=== PATIENT | female | born 1980 | race Hispanic/Latino ===

== ENCOUNTER 2019-10-26 20:22 | Emergency (ER) | payer SELFPAY ==
[2019-10-26 20:55] LABS: Urine Blood NEGATIVE (NEG); Urine Glucose 2+ (NEG); Urine Protein NEGATIVE (NEG); Urine pH 5.5 (5.0-7.0)
[2019-10-26] MEDS ORDERED: ONDANSETRON 4 MG/2 ML VIAL ONE (21:13)
[2019-10-26] MEDS ORDERED: MORPHINE 4 MG/ML SYR ONE (21:13)
[2019-10-26 21:28] LABS: Absolute Lymphocytes (CBC) 2.2 K/uL (0.7-4.9); Basophils % 0.5 % (0-1.3); Lymphocytes % 33.6 % (15.3-44.8); MPV 11.7 fL (7.6-11.3); RBC Red Blood Cell Count 3.97 M/uL (3.86-4.86)
[2019-10-26 21:50] LABS: Urine Bacteria <20 /HPF (<20); Urine Culture Reflex Order NOT NEEDED; Urine RBC <5 /HPF (NONE SEEN)
[2019-10-26 21:53] LABS: ALT/SGPT 18 U/L (12-78); AST/SGOT 13 U/L (15-37); Alkaline Phosphatase 109 U/L (45-117); BUN Blood Urea Nitrogen 10 mg/dL (7-18); Bicarbonate 26 mmol/L (21-32); Bilirubin Direct < 0.1 mg/dL (0-0.2); Bilirubin Total 0.2 mg/dL (0.2-1.0); Lipase 141 U/L (73-393); Potassium 4.2 mmol/L (3.5-5.1); Protein, Total 6.7 g/dL (6.4-8.2); Sodium Level 133 mmol/L (136-145)
[2019-10-26 21:55] LABS: Glucose Level 435 mg/dL (74-106)
[2019-10-26] MEDS ORDERED: NA CHLORIDE 0.9% 1,000 ML ONE (22:07)
--- NOTE | 2019-10-26 23:12 | ER ---
Nurse's Notes [facility] Name: Tati Flaherty Age: 38 yrs Sex: Female : 1980 Arrival Date: 10/26/2019 Time: 20:25 Bed 24 Private MD: Diagnosis: Hyperglycemia, unspecified;Abdominal and pelvic pain Presentation: 10/26 20:27 Presenting complaint: Patient states: Lower abdominal pain that radiates to the back ca1 and leg x 3 days now. Reports feeling bloated at the stomach. Pt reports nausea, dysuria, urinary urgency and frequency. Denies fever and diarrhea. Transition of care: patient was not received from another setting of care. Onset of symptoms was October 26, 2019. Risk Assessment: Do you want to hurt yourself or someone else? Patient reports no desire to harm self or others. Initial Sepsis Screen: Does the patient meet any 2 criteria? No. Patient's initial sepsis screen is negative. Does the patient have a suspected source of infection? No. Patient's initial sepsis screen is negative. Care prior to arrival: None. 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 - Social history:: Smoking status: Patient/guardian denies using tobacco. - Ebola Screening: : Patient negative for fever greater than or equal to 101.5 degrees Fahrenheit, and additional compatible Ebola Virus Disease symptoms Patient denies exposure to infectious person Patient denies travel to an Ebola-affected area in the 21 days before illness onset No symptoms or risks identified at this time. Screenin:51 Abuse screen: Denies threats or abuse. Nutritional screening: No deficits noted. ad1 Tuberculosis screening: No symptoms or risk factors identified. Fall Risk None identified. Assessment: 20:59 General: Appears comfortable, Behavior is calm, cooperative. Pain: Complains of pain in ad1 lower abdomen and lower back. Pain currently is 6 out of 10 on a pain scale. Neuro: No deficits noted. Level of Consciousness is awake, alert, obeys commands. Cardiovascular: No deficits noted. Respiratory: No deficits noted. GI: Abdomen is tender to palpation in lower abdomen bilaterally. : Reports burning with urination, pain. EENT: No signs and/or symptoms were reported regarding the EENT system. Derm: No deficits noted. Derm: No signs and/or symptoms reported regarding the dermatologic system. 21:06 GI: Bowel sounds present X 4 quads. ad1 21:27 Reassessment: Patient laying in stretcher, eyes closed, even respirations. no apparent ad1 distress noted. Daughter updated, waiting lab results then CT. 22:43 Reassessment: Patient and/or family updated on plan of care and expected duration. Pain ad1 level reassessed. Patient is alert, oriented x 3, equal unlabored respirations, skin warm/dry/pink. Patient states feeling better. Vital Signs: 20:30 BP 121 / 74; Pulse 85; Resp 17 S; Temp 97.1(TE); Pulse Ox 97% on R/A; Weight 58.97 kg ca1 (R); Height 5 ft. 0 in. (152.40 cm) (R); Pain 6/10; 21:29 BP 146 / 83; Pulse 73; Resp 16; Pulse Ox 100% ; ad1 22:43 BP 151 / 87; Pulse 70; Resp 18; Pulse Ox 100% ; ad1 20:30 Body Mass Index 25.39 (58.97 kg, 152.40 cm) ca1 ED Course: 20:25 Patient arrived in ED. cl3 20:29 Triage completed. ca1 20:30 Arm band placed on right wrist. ca1 20:37 Eulogio Davalos PA is PHCP. jr8 20:37 Carlos Montenegro MD is Attending Physician. jr8 21:09 No provider procedures requiring assistance completed. Inserted saline lock: 22 gauge ca1 in right antecubital area, using aseptic technique. Blood collected. 21:10 Initial lab(s) drawn, by me, sent to lab. ca1 21:36 Radiology exam delayed due to lab results not completed at this time. (BUN/Creatinine). nj 22:11 CT Abd/Pelvis - IV Contrast Only In Process Unspecified. EDMS 23:52 Patient has correct armband on for positive identification. ad1 23:52 IV discontinued, intact, bleeding controlled. ad1 Administered Medications: 21:17 Drug: morphine 4 mg {Note: RASS 0.} Route: IVP; Site: right antecubital; ad1 21:17 Drug: Zofran 4 mg Route: IVP; Site: right antecubital; ad1 22:12 Drug: NS 0.9% 1000 ml Route: IV; Rate: 1000 ml; Site: right antecubital; ad1 Outcome: 23:12 Discharge ordered by . roberta 23:50 Discharged to home with family. ad1 23:50 Condition: stable 23:50 Discharge instructions given to patient, Instructed on discharge instructions, follow up and referral plans. Demonstrated understanding of instructions, follow-up care, medications, Prescriptions given X 3. 23:52 Patient left the ED. ad1 Signatures: Dispatcher [employer] EDShona Parker RN RN ad1 Eulogio Davalos PA PA jr8 Jordan, Nathan nj Acob, Cheryl, RN RN ca1 Cookie Watkins cl3
--- NOTE | 2019-10-26 23:13 | EDPHYS ---
Physician Documentation [facility] Name: Tati Flaherty Age: 38 yrs Sex: Female : 1980 Arrival Date: 10/26/2019 Time: 20:25 Bed 24 Private MD: ED Physician Carlos Montenegro HPI: 10/26 22:32 This 38 yrs old Female presents to ER via Ambulatory with complaints of Abdominal Pain, jr8 Pain With Urination. 22:32 The patient presents with abdominal pain in the lower abdomen. Onset: The jr8 symptoms/episode began/occurred acutely, yesterday. The symptoms do not radiate. Associated signs and symptoms: Pertinent positives: dysuria, nausea. The symptoms are described as shooting, stabbing. Modifying factors: The symptoms are alleviated by nothing, the symptoms are aggravated by nothing. Severity of pain: At its worst the pain was moderate in the emergency department the pain is unchanged. The patient has not experienced similar symptoms in the past. The patient has not recently seen a physician. 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 - Social history:: Smoking status: Patient/guardian denies using tobacco. - Ebola Screening: : Patient negative for fever greater than or equal to 101.5 degrees Fahrenheit, and additional compatible Ebola Virus Disease symptoms Patient denies exposure to infectious person Patient denies travel to an Ebola-affected area in the 21 days before illness onset No symptoms or risks identified at this time. ROS: 22:32 Eyes: Negative for injury, pain, redness, and discharge, ENT: Negative for injury, jr8 pain, and discharge, Neck: Negative for injury, pain, and swelling, Cardiovascular: Negative for chest pain, palpitations, and edema, Respiratory: Negative for shortness of breath, cough, wheezing, and pleuritic chest pain, Back: Negative for injury and pain, MS/Extremity: Negative for injury and deformity, Skin: Negative for injury, rash, and discoloration, Neuro: Negative for headache, weakness, numbness, tingling, and seizure. 22:32 Abdomen/GI: Positive for abdominal pain, nausea, Negative for vomiting, diarrhea, constipation, abdominal distension. 22:32 : Positive for urinary symptoms. jr8 Exam: 22:32 Eyes: Pupils equal round and reactive to light, extra-ocular motions intact. Lids and jr8 lashes normal. Conjunctiva and sclera are non-icteric and not injected. Cornea within normal limits. Periorbital areas with no swelling, redness, or edema. ENT: Nares patent. No nasal discharge, no septal abnormalities noted. Tympanic membranes are normal and external auditory canals are clear. Oropharynx with no redness, swelling, or masses, exudates, or evidence of obstruction, uvula midline. Mucous membranes moist. Neck: Trachea midline, no thyromegaly or masses palpated, and no cervical lymphadenopathy. Supple, full range of motion without nuchal rigidity, or vertebral point tenderness. No Meningismus. Cardiovascular: Regular rate and rhythm with a normal S1 and S2. No gallops, murmurs, or rubs. Normal PMI, no JVD. No pulse deficits. Respiratory: Lungs have equal breath sounds bilaterally, clear to auscultation and percussion. No rales, rhonchi or wheezes noted. No increased work of breathing, no retractions or nasal flaring. Back: No spinal tenderness. No costovertebral tenderness. Full range of motion. Skin: Warm, dry with normal turgor. Normal color with no rashes, no lesions, and no evidence of cellulitis. MS/ Extremity: Pulses equal, no cyanosis. Neurovascular intact. Full, normal range of motion. Neuro: Awake and alert, GCS 15, oriented to person, place, time, and situation. Cranial nerves II-XII grossly intact. Motor strength 5/5 in all extremities. Sensory grossly intact. Cerebellar exam normal. Normal gait. 22:32 Abdomen/GI: Inspection: abdomen appears normal, Bowel sounds: active, all quadrants, Palpation: soft, in all quadrants, mild abdominal tenderness, in the right lower quadrant and left lower quadrant, mass, is not appreciated, rebound tenderness, is not appreciated, voluntary guarding, is not appreciated, involuntary guarding, is not appreciated, no appreciated organomegaly, Indicators: McBurney's point is not tender, Montes De Oca's sign is negative, Rovsing's sign is negative, Liver: tenderness, is not appreciated. Vital Signs: 20:30 BP 121 / 74; Pulse 85; Resp 17 S; Temp 97.1(TE); Pulse Ox 97% on R/A; Weight 58.97 kg ca1 (R); Height 5 ft. 0 in. (152.40 cm) (R); Pain 6/10; 21:29 BP 146 / 83; Pulse 73; Resp 16; Pulse Ox 100% ; ad1 22:43 BP 151 / 87; Pulse 70; Resp 18; Pulse Ox 100% ; ad1 20:30 Body Mass Index 25.39 (58.97 kg, 152.40 cm) ca1 MDM: 20:37 Patient medically screened. jr8 23:10 Differential diagnosis: appendicitis, bowel obstruction, diverticulitis, Endometriosis, jr8 GI Bleed, Irritable bowel syndrome, non-specific abd pain, Pyelonephritis, Ureterolithiasis, urinary tract infection, Ovarian torsion, PID. Data reviewed: vital signs, nurses notes, lab test result(s), radiologic studies, CT scan. Data interpreted: Pulse oximetry: on room air is 100 %. Interpretation: normal. Counseling: I had a detailed discussion with the patient and/or guardian regarding: the historical points, exam findings, and any diagnostic results supporting the discharge/admit diagnosis, lab results, radiology results, the need for outpatient follow up, a family practitioner, to return to the emergency department if symptoms worsen or persist or if there are any questions or concerns that arise at home. Special discussion: Based on the patient's Hx, exam, and Dx evaluation, there is no indication for emergent surgery or inpatient Tx. It is understood by the patient/guardian that if the Sx's persist or worsen they need to return immediately for re-evaluation. ED course: Discussed need to f/u with PCP for newly diagnosed Diabetes . 10/26 20:37 Order name: Urine Microscopic Only; Complete Time: 22:02 10/26 20:54 Order name: Urine Dipstick--Ancillary (enter results); Complete Time: 20:56 2 10/26 21:03 Order name: Basic Metabolic Panel; Complete Time: 22:02 10/26 21:03 Order name: CBC with Diff; Complete Time: 21:41 10/26 21:03 Order name: Creatinine for Radiology; Complete Time: 21:41 10/26 21:03 Order name: Hepatic Function; Complete Time: 22:02 10/26 20:37 Order name: Urine Dipstick-Ancillary (obtain specimen); Complete Time: 21:03 10/26 21:03 Order name: Lipase; Complete Time: 22:02 10/26 21:03 Order name: IV Saline Lock; Complete Time: 21:10 10/26 21:03 Order name: Labs collected and sent; Complete Time: 21:10 10/26 21:04 Order name: CT Abd/Pelvis - IV Contrast Only Administered Medications: 21:17 Drug: morphine 4 mg {Note: RASS 0.} Route: IVP; Site: right antecubital; ad1 21:17 Drug: Zofran 4 mg Route: IVP; Site: right antecubital; ad1 22:12 Drug: NS 0.9% 1000 ml Route: IV; Rate: 1000 ml; Site: right antecubital; ad1 Disposition: 10/27 05:44 Co-signature as Attending Physician, Carlos Montenegro MD I agree with the assessment and tw4 plan of care. Disposition: 10/26/19 23:12 Discharged to Home. Impression: Hyperglycemia, unspecified, Abdominal and pelvic pain. - Condition is Stable. - Discharge Instructions: Abdominal Pain, Adult, Type 2 Diabetes Mellitus, Diagnosis, Adult, Hyperglycemia, Blood Glucose Monitoring, Adult. - Prescriptions for Metformin 500 mg Oral Tablet - take 1 tablet by ORAL route once daily for 7 days Then take 1 tablet with morning meals AND evening meals; 21 tablet. Bentyl 20 mg Oral Tablet - take 1 tablet by ORAL route every 6 hours As needed; 20 tablet. Zofran 4 mg Oral Tablet - take 1 tablet by ORAL route every 12 hours As needed; 20 tablet. - Medication Reconciliation Form, Thank You Letter, Antibiotic Education, Prescription Opioid Use form. - Follow up: Private Physician; When: 2 - 3 days; Reason: Recheck today's complaints, Continuance of care, Re-evaluation by your physician. - Problem is new. - Symptoms have improved. Signatures: Dispatcher [employer] EDMS Shona Vivas RN RN ad1 Eulogio Davalos PA PA jr8 Carlos Montenegro MD MD tw4 Alejandra Bang RN RN ca1 Corrections: (The following items were deleted from the chart) 10/26 23:52 23:12 10/26/2019 23:12 Discharged to Home. Impression: Hyperglycemia, unspecified; ad1 Abdominal and pelvic pain. Condition is Stable. Forms are Medication Reconciliation Form, Thank You Letter, Antibiotic Education, Prescription Opioid Use. Follow up: Private Physician; When: 2 - 3 days; Reason: Recheck today's complaints, Continuance of care, Re-evaluation by your physician. Problem is new. Symptoms have improved. jr8
[2019-10-26 23:59] VITALS: TEMP 97.1
[2019-10-27 00:27] VITALS: O2SAT 100
[2019-10-27 00:28] VITALS: BP 151/87
--- NOTE | 2019-10-27 12:24 | RAD REPORT ---
EXAM DESCRIPTION: CT Abdomen and Pelvis With Intravenous Contrast CLINICAL HISTORY: The patient is 38 years old and is Female; Abdominal pain;Abd pain TECHNIQUE: Axial computed tomography images of the abdomen and pelvis with intravenous contrast. S agittal and coronal reformatted images were created and reviewed. This CT exam was performed using one or more of the following dose reduction techniques: automated exposure control, adjustment of t he mA and/or kV according to patient size, and/or use of iterative reconstruction technique. COMPARISON: No relevant prior studies available. FINDINGS: LUNG BASES: Unremarkable. No mass. No consolidation. ABDOMEN: LIVER: There is a diffuse decrease in hepatic parenchymal density, consistent with fatty infiltr ation. The liver is enlarged. GALLBLADDER AND BILE DUCTS: No calcified stones. No ductal dilation. PANCREAS: No ductal dilation. No mass. SPLEEN: Unremarkable. ADRENALS: Unremarkable. No mass. KIDNEYS AND URETERS: Unremarkable. The kidneys enhance symmetrically. No obstructing renal or ur eteral calculus is seen. No hydronephrosis or hydroureter. No perinephric fluid or stranding. STOMACH AND BOWEL: The stomach is distended with food contents. The small bowel is normal in helen iber. Stool is present throughout colon. There is no mucosal thickening or evidence of bowel obstruct ion. PELVIS: APPENDIX: The appendix is normal in caliber without surrounding inflammation. BLADDER: The bladder is well distended. REPRODUCTIVE: Unremarkable as visualized. ABDOMEN and PELVIS: INTRAPERITONEAL SPACE: Unremarkable. No free air. No significant fluid collection. BONES/JOINTS: No acute fracture. SOFT TISSUES: The soft tissues are normal. VASCULATURE: Unremarkable. No abdominal aortic aneurysm. LYMPH NODES: Unremarkable. No enlarged lymph nodes. IMPRESSION: No acute findings on this CT of the abdomen and pelvis to explain the patient's sympto ms. Electronically signed by: Destiny Rodas MD 10/26/2019 10:40 PM BUSINESS PROCESS REPRESENTATIVE Due to temporary technical issues with the PACS/Fluency reporting system, reports are being signed by the in house radiologist as a courtesy to ensure prompt reporting. The interpreting radiologist is f laurencely responsible for the content of the report.
== END 2019-10-26 23:52 | disposition home or self-care (01) ==
LOC: ER 20:22
DX: R73.9 Hyperglycemia, unspecified (principal); I10 Essential (primary) hypertension
CPT/HCPCS: 36415; 74177; 80048; 80076; 81003; 81015; 83690; 85025; 96374; 96375; 99284; J2405; J7030; Q9967

== ENCOUNTER 2020-09-11 20:18 | Inpatient (IN) | payer SELFPAY ==
[2020-09-11] MEDS ORDERED: NA CHLORIDE 0.9% 1,000 ML ONE ×2 (20:56→23:50)
[2020-09-11] MEDS ORDERED: ACETAMINOPHEN 500 MG TAB ONE (20:56)
[2020-09-11 21:00] LABS: Absolute Lymphocytes (CBC) 1.2 K/uL (0.7-4.9); Basophils % 0.2 % (0-1.3); Hematocrit 36.2 % (36.0-45.0); Lymphocytes % 12.9 % (15.3-44.8); MPV 11.6 fL (7.6-11.3); RBC Red Blood Cell Count 4.44 M/uL (3.86-4.86)
[2020-09-11 21:11] LABS: BUN Blood Urea Nitrogen 9 mg/dL (7-18); Bicarbonate 26 mmol/L (21-32); Glucose Level 333 mg/dL (74-106); Potassium 3.6 mmol/L (3.5-5.1); Sodium Level 134 mmol/L (136-145)
--- NOTE | 2020-09-11 21:18 | RAD REPORT ---
EXAM DESCRIPTION: CT - Abdomen Pelvis W Contrast - 09/11/2020 9:07 pm CLINICAL HISTORY: Abdominal pain COMPARISON: October 2019 TECHNIQUE: Computed axial tomography of the abdomen pelvis was obtained. 100 cc Isovue-300 was admin istered intravenously. Oral contrast was not requested which limits evaluation of bowel. All CT scans are performed using dose optimization technique as appropriate and may include automated exposure control or mA/KV adjustment according to patient size. FINDINGS: Fatty liver Spleen, pancreas, and adrenal appear unremarkable. Moderate low-density areas are present within right kidney reaching the periphery probably pyelonephr itis. No hydronephrosis Minimal left pyelonephritis is present There is no evidence of diverticulitis. Normal appendix IMPRESSION: Moderate right pyelonephritis Minimal left pyelonephritis
--- NOTE | 2020-09-11 21:52 | EDPHYS ---
Physician Documentation [facility] Name: Tati Flaherty Age: 39 yrs Sex: Female : 1980 Arrival Date: 09/11/2020 Time: 20:21 Bed 5 Private MD: ED Physician Audelia Silvestre HPI: 09/11 22:13 This 39 yrs old Female presents to ER via Ambulatory with complaints of Fever, kb Back Pain. 22:14 Associated signs and symptoms: Pertinent positives: dysuria, fever, urinary frequency, kb Pertinent negatives: diarrhea, dizziness, nausea, pain radiating to the lower extremities, vomiting. Severity of pain: At its worst the pain was moderate in the emergency department the pain is unchanged. The patient has not experienced similar symptoms in the past. The patient has not recently seen a physician. 22:15 The patient complains of pain in the right flank. The pain does not radiate. Onset: The kb symptoms/episode began/occurred 4 day(s) ago. Modifying factors: The symptoms are alleviated by nothing. the symptoms are aggravated by nothing. 22:16 Pt reports fever, malaise, flank pain and dysuria since Friday. Went to the clinic kb today and was given antibiotics, but the symptoms got worse tonight. DIRECTOR RISK: 20:42 LMP 09/11/2020 Historical: - Allergies: 20:34 No Known Allergies; dm5 - Home Meds: 20:44 atorvastatin 20 mg oral tab 1 tab nightly [Active]; metformin 1,000 mg Oral tab 1 tab 2 wh times per day [Active]; - PMHx: 20:34 Hypertension; dm5 - PSHx: 20:34 Tubal ligation; dm5 - Immunization history:: Adult Immunizations not up to date. - Social history:: Smoking status: Patient/guardian denies using. ROS: 22:11 Cardiovascular: Negative for chest pain, palpitations, and edema, Respiratory: Negative kb for shortness of breath, cough, wheezing, and pleuritic chest pain, Abdomen/GI: Negative for abdominal pain, nausea, vomiting, diarrhea, and constipation, MS/Extremity: Negative for injury and deformity, Skin: Negative for injury, rash, and discoloration, Neuro: Negative for headache, weakness, numbness, tingling, and seizure. 22:11 Back: Positive for flank pain, on the right. 22:11 : Positive for urinary symptoms, flank pain, burning with urination. Exam: 22:11 Constitutional: This is a well developed, well nourished patient who is awake, alert, kb and in no acute distress. Head/Face: Normocephalic, atraumatic. Chest/axilla: Normal chest wall appearance and motion. Nontender with no deformity. No lesions are appreciated. Cardiovascular: Regular rate and rhythm with a normal S1 and S2. No gallops, murmurs, or rubs. Normal PMI, no JVD. No pulse deficits. Respiratory: Lungs have equal breath sounds bilaterally, clear to auscultation and percussion. No rales, rhonchi or wheezes noted. No increased work of breathing, no retractions or nasal flaring. Skin: Warm, dry with normal turgor. Normal color with no rashes, no lesions, and no evidence of cellulitis. MS/ Extremity: Pulses equal, no cyanosis. Neurovascular intact. Full, normal range of motion. Neuro: Awake and alert, GCS 15, oriented to person, place, time, and situation. Cranial nerves II-XII grossly intact. Motor strength 5/5 in all extremities. Sensory grossly intact. Cerebellar exam normal. Normal gait. 22:11 Abdomen/GI: Inspection: abdomen appears normal, Bowel sounds: normal, in all quadrants, Palpation: soft, in all quadrants, mild abdominal tenderness, in the right lower quadrant. 22:11 Back: pain, that is moderate, ROM is normal, CVA tenderness, that is moderate, is noted on the right. Vital Signs: 20:29 BP 143 / 85; Pulse 110; Resp 19; Temp 103; Pulse Ox 99% ; Weight 55.34 kg; Height 5 ft. rr5 0 in. (152.40 cm); 22:00 BP 119 / 72; Pulse 105; Resp 18; Temp 99.6; Pulse Ox 100% ; wh 20:29 Body Mass Index 23.83 (55.34 kg, 152.40 cm) rr5 MDM: 20:24 Patient medically screened. kb 21:50 Data reviewed: vital signs, nurses notes. Data interpreted: Pulse oximetry: on room air kb is 99 %. Interpretation: normal. Counseling: I had a detailed discussion with the patient and/or guardian regarding: the historical points, exam findings, and any diagnostic results supporting the discharge/admit diagnosis, lab results, radiology results, the need for further work-up and treatment in the hospital. Physician consultation: Audelia Silvestre MD was contacted at 21:50, regarding admission, to the medical/surgical unit. patient's condition, and will see patient in ED, shortly. 09/11 20:30 Order name: Urine Microscopic Only; Complete Time: 12:59 kb 09/11 20:30 Order name: Basic Metabolic Panel; Complete Time: 21:12 kb 09/11 20:30 Order name: CBC with Diff; Complete Time: 21:02 kb 09/11 20:35 Order name: Procalcitonin; Complete Time: 21:48 wh 09/11 20:35 Order name: Lactate; Complete Time: 21:16 wh 09/11 20:35 Order name: Blood Culture Adult (2) 09/11 21:51 Order name: Urine Dipstick--Ancillary (enter results); Complete Time: 12:59 mw2 09/11 21:51 Order name: Urine --Ancillary (enter results); Complete Time: 12:59 mw2 09/11 22:03 Order name: COVID-19 la1 09/12 00:01 Order name: SARS-COV-2 RT PCR; Complete Time: 12:59 EDMS 09/12 00:43 Order name: CREATININE WHOLE BLOOD; Complete Time: 12:59 EDMS 09/12 04:42 Order name: CBC with Automated Diff; Complete Time: 12:59 EDMS 09/12 04:47 Order name: Basic Metabolic Panel; Complete Time: 12:59 EDMS 09/12 04:47 Order name: Magnesium; Complete Time: 12:59 EDMS 09/11 20:30 Order name: CT Abd/Pelvis - IV Contrast Only; Complete Time: 21:26 kb 09/12 08:03 Order name: Glucose, Ancillary Testing; Complete Time: 12:59 EDMS 09/12 08:32 Order name: C-Reactive Protein; Complete Time: 12:59 EDMS 09/12 08:32 Order name: Ferritin; Complete Time: 12:59 EDMS 09/12 12:02 Order name: Glucose, Ancillary Testing; Complete Time: 12:59 EDMS 09/12 12:27 Order name: Potassium; Complete Time: 12:59 EDMS 09/13 04:11 Order name: Glucose, Ancillary Testing EDNM 09/13 04:12 Order name: Glucose, Ancillary Testing EDNM 09/13 05:27 Order name: CBC with Automated Diff EDNM 09/13 05:47 Order name: Basic Metabolic Panel EDNM 09/13 05:47 Order name: Magnesium EDMS 09/13 07:15 Order name: Urine Culture EDNM 09/13 07:53 Order name: Glucose, Ancillary Testing EDNM 09/11 20:30 Order name: Urine Test (obtain specimen); Complete Time: 21:46 kb 09/11 20:30 Order name: Urine Dipstick-Ancillary (obtain specimen); Complete Time: 21:46 kb 09/11 20:30 Order name: IV Saline Lock; Complete Time: 20:38 kb 09/11 20:30 Order name: Labs collected and sent; Complete Time: 20:38 kb Administered Medications: 20:47 Drug: Tylenol 1000 mg Route: PO; 22:01 Follow up: Response: No adverse reaction; Temperature is decreased 20:47 Drug: NS 0.9% 1000 ml Route: IV; Rate: 1000 ml; Site: right antecubital; 22:01 Follow up: Response: No adverse reaction; IV Status: Completed infusion 22:01 Drug: Rocephin 1 grams Route: IV; Rate: calculated rate; Site: right antecubital; 22:12 Follow up: Response: No adverse reaction; IV Status: Completed infusion Disposition: 09/12 03:30 Co-signature as Attending Physician, Audelia Silvestre MD. ma2 Disposition: 09/11/20 21:52 Hospitalization ordered by Shadi Padilla for Observation. Preliminary diagnosis are Acute tubulo-interstitial nephritis - bilateral, Urinary tract infection, site not specified. - Bed requested for Intensive Care Unit. - Status is Observation. em - Condition is Stable. - Problem is new. - Symptoms are unchanged. Signatures: Dispatcher [employer] [facility] Alaina Swan FNP-C FNP-Ckb Markwardt, Deana, RN RN dm5 Vinayak Pineda RN RN em Coreen Richards, RN RN carter1 Abby Myrick RN RN cg Habalo, Winsy Audelia Silvestre MD MD ma2 Corrections: (The following items were deleted from the chart) 09/11 22:17 21:52 Hospitalization Ordered by Shadi Padilla for Observation. Preliminary diagnosis cg is Acute tubulo-interstitial nephritis - bilateral; Urinary tract infection, site not specified. Bed requested for Telemetry/MedSurg (observation). Status is Observation. Condition is Stable. Problem is new. Symptoms are unchanged. kb 09/13 06:16 09/11 22:17 09/11/2020 21:52 Hospitalization Ordered by Shadi Padilla for Observation. tl1 Preliminary diagnosis is Acute tubulo-interstitial nephritis - bilateral; Urinary tract infection, site not specified. Bed requested for [facility] ER HOLD. Status is Observation. Condition is Stable. Problem is new. Symptoms are unchanged. cg 09/13 08:03 06:16 09/11/2020 21:52 Hospitalization Ordered by Shadi Padilla for Observation. em Preliminary diagnosis is Acute tubulo-interstitial nephritis - bilateral; Urinary tract infection, site not specified. Bed requested for Intensive Care Unit. Status is Observation. Condition is Stable. Problem is new. Symptoms are unchanged. tl1
--- NOTE | 2020-09-11 21:52 | ER ---
[facility] Name: Tati Flaherty Age: 39 yrs Sex: Female : 1980 Arrival Date: 09/11/2020 Time: 20:21 Bed 5 Private MD: Diagnosis: Acute tubulo-interstitial nephritis-bilateral;Urinary tract infection, site not specified Presentation: 09/11 20:29 Chief complaint: Patient's son or daughter states: right flank pain that radiates to dm5 right lower quadrant started on Friday. Last BM reported to be Friday. Pt demonstrates right CVA tenderness. Pain got worse 1-2 hours ago. 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 Pain rated at 6/10. Pt reports pain with urination headache. Coronavirus screen: Client denies travel out of the [place] in the last 14 days. fever, Client presents with at least one sign or symptom that may indicate coronavirus-19. Standard/surgical mask placed on the client. Provider contacted for isolation considerations. Ebola Screen: Patient negative for fever greater than or equal to 101.5 degrees Fahrenheit, and additional compatible Ebola Virus Disease symptoms Patient denies exposure to infectious person. Patient denies travel to an Ebola-affected area in the 21 days before illness onset. No symptoms or risks identified at this time. Initial Sepsis Screen: Does the patient meet any 2 criteria? Temp <36.0*C (96.8*F)) or > 38.3*C (100.9*F). Systolic BP < 90 mmHg. Yes Does the patient have a suspected source of infection? Yes: Dysuria/Frequency/Urgency/UTI. Risk Assessment: Do you want to hurt yourself or someone else? Patient reports no desire to harm self or others. Onset of symptoms was September 08, 2020. 20:29 Method Of Arrival: Ambulatory dm5 20:29 Acuity: NICK 2 dm5 Triage Assessment: 20:34 General: Appears in no apparent distress. uncomfortable, Behavior is cooperative, dm5 restless. Pain: Complains of pain in right flank and right mid back Pain currently is 6 out of 10 on a pain scale. Pain began 2-3 days ago. Neuro: Level of Consciousness is awake, alert, obeys commands, Oriented to person, place, time, situation. Cardiovascular: No deficits noted. Respiratory: No deficits noted. GI: Reports lower abdominal pain. : Reports burning with urination, since Friday. Derm: No deficits noted. No signs and/or symptoms reported regarding the dermatologic system. Musculoskeletal: Circulation, motion, and sensation intact. CLIENT SERVICES ASSOCIATE: 20:42 LMP 09/11/2020 Historical: - Allergies: 20:34 No Known Allergies; dm5 - Home Meds: 20:44 atorvastatin 20 mg oral tab 1 tab nightly [Active]; metformin 1,000 mg Oral tab 1 tab 2 wh times per day [Active]; - PMHx: 20:34 Hypertension; dm5 - PSHx: 20:34 Tubal ligation; dm5 - Immunization history:: Adult Immunizations not up to date. - Social history:: Smoking status: Patient/guardian denies using. Screenin:42 Abuse screen: Denies threats or abuse. Denies injuries from another. Nutritional wh screening: No deficits noted. Tuberculosis screening: No symptoms or risk factors identified. Fall Risk None identified. Assessment: 20:45 General: Appears in no apparent distress. uncomfortable, ill, Behavior is calm, wh cooperative, appropriate for age. Pain: Complains of pain in right mid back and right flank Pain currently is 6 out of 10 on a pain scale. Pain began 2-3 days ago. Neuro: Level of Consciousness is awake, alert, obeys commands, Oriented to person, place, time, situation, Appropriate for age. Cardiovascular: Capillary refill < 3 seconds. Respiratory: Airway is patent Respiratory effort is even, unlabored, Respiratory pattern is regular, symmetrical. GI: Abdomen is flat, non-distended, Abd is soft and non tender X 4 quads. : Reports burning with urination. EENT: No signs and/or symptoms were reported regarding the EENT system. Derm: Skin is intact, is healthy with good turgor, Skin is pink, warm \T\ dry. normal. Musculoskeletal: Circulation, motion, and sensation intact. 22:00 Reassessment: Patient appears in no apparent distress at this time. No changes from previously documented assessment. Patient and/or family updated on plan of care and expected duration. Pain level reassessed. Patient is alert, oriented x 3, equal unlabored respirations, skin warm/dry/pink. 22:10 Reassessment: Provider at bedside explaining POC need for admit. Vital Signs: 20:29 BP 143 / 85; Pulse 110; Resp 19; Temp 103; Pulse Ox 99% ; Weight 55.34 kg; Height 5 ft. rr5 0 in. (152.40 cm); 22:00 BP 119 / 72; Pulse 105; Resp 18; Temp 99.6; Pulse Ox 100% ; wh 20:29 Body Mass Index 23.83 (55.34 kg, 152.40 cm) rr5 ED Course: 20:21 Patient arrived in ED. cl3 20:24 Alaina Swan FNP-C is PHCP. kb 20:24 Audelia Silvestre MD is Attending Physician. kb 20:33 Triage completed. dm5 20:34 Arm band placed on Patient placed in an exam room, on a stretcher. dm5 20:35 Debbie Cueto is Primary Nurse. wh 20:43 Patient has correct armband on for positive identification. Placed in gown. Bed in low wh position. Call light in reach. Side rails up X 1. Pulse ox on. NIBP on. 20:57 Inserted saline lock: 20 gauge in right antecubital area, using aseptic technique. jb5 Blood collected. 20:57 Lactate Sent. jb5 20:57 Procalcitonin Sent. jb5 20:58 Basic Metabolic Panel Sent. jb5 20:58 CBC with Diff Sent. jb5 21:07 CT Abd/Pelvis - IV Contrast Only In Process Unspecified. EDMS 21:49 Urine Microscopic Only Sent. jb5 21:51 Shadi Padilla is Hospitalizing Provider. kb 22:22 No provider procedures requiring assistance completed. Patient admitted, IV remains in place. Administered Medications: 20:47 Drug: Tylenol 1000 mg Route: PO; 22:01 Follow up: Response: No adverse reaction; Temperature is decreased 20:47 Drug: NS 0.9% 1000 ml Route: IV; Rate: 1000 ml; Site: right antecubital; 22:01 Follow up: Response: No adverse reaction; IV Status: Completed infusion 22:01 Drug: Rocephin 1 grams Route: IV; Rate: calculated rate; Site: right antecubital; 22:12 Follow up: Response: No adverse reaction; IV Status: Completed infusion Outcome: 21:52 Decision to Hospitalize by Provider. kb 22:22 Admitted to ER Hold. Please see [facility] for further documentation. 22:22 Condition: stable 22:22 Instructed on the need for admit. 09/13 08:03 Patient left the ED. em Signatures: Dispatcher [employer] Alaina Wesley, DEPOSITION OPERATOR-C DEPOSITION OPERATOR-Jazzmine Calderon, RN RN dm5 Vinayak Pineda RN RN em Pat Escobedo5 Debbie Cueto Marcial Shen RN RN rr5 Cookie Watkins cl3
[2020-09-11] MEDS ORDERED: CEFTRIAXONE/SWI 1gm 1 GM/10 ML SYR ONE (22:14)
--- NOTE | 2020-09-11 22:41 | P.HP ---
Certification for Inpatient Patient admitted to: Inpatient With expected LOS: >2 Midnights Patient will require the following post-hospital care: None Practitioner: I am a practitioner with admitting privileges, knowledge of patient current condition, hospital course, and medical plan of care. Services: Services provided to patient in accordance with Admission requirements found in Title 42 Section 412.3 of the Code of Federal Regulations <TreyAltaf wylie - Last Filed: 09/11/20 22:36> Patient History Date of Service: 09/11/20 Primary Care Provider: none Reason for admission: Pyelonephritis History of Present Illness: 39-year-old female with history of diabetes mellitus type 2, hyperlipidemia presents emergency department for fever, back pain. Patient reports she has had urinary symptoms since 09/04/2020 and began having fever on 09/07/2020. Patient was seen at outpatient clinic today and prescribed Bactrim. Patient reports she has taken 1 dose but symptoms worsened. Patient was evaluated in the emergency department, white blood cell count 9.4, pro calcitonin 3.46, lactic acid 1.3. Blood in urine cultures obtained in the emergency department, CT abdomen pelvis demonstrates bilateral pyelonephritis, moderate right, minimal left. Patient given Rocephin in the emergency departm ent. When I saw the patient in the emergency department she is awake, alert, oriented x3. Patient complaining of lower abdominal pain and back pain. Vital signs stable, patient does not appear septic at this time. Will be admitted for further evaluation and management. 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 - Family History Family History: Reviewed- Non-Contributory - Social History Smoking Status: Never smoker Alcohol use: No CD- Drugs: No Caffeine use: Yes Place of Residence: Home <Altaf Valente - Last Filed: 09/11/20 22:36> Date of Service: 09/12/20 <hilda head - Last Filed: 09/12/20 10:52> Review of Systems 10-point ROS is otherwise unremarkable General: Fever, Chills, Malaise Gastrointestinal: Abdominal Pain Genitourinary: Dysuria, Frequency, Urgency Musculoskeletal: Back Pain <Altaf Valente - Last Filed: 09/11/20 22:36> Physical Examination - Physical Exam General: Alert, In no apparent distress, Oriented x3 HEENT: Atraumatic, Normocephalic, PERRLA, Other (Mucous membranes dry) Respiratory: Clear to auscultation bilaterally, Normal air movement Cardiovascular: Regular rate/rhythm, Normal S1 S2 Capillary refill: <2 Seconds Gastrointestinal: Normal bowel sounds Musculoskeletal: No contractures, No erythema, No tenderness, Tenderness (CVA tenderness) Integumentary: No tenderness/swelling, No erythema, No warmth Neurological: Normal speech, Normal strength at 5/5 x4 extr, Normal tone, Sensation intact - Studies Laboratory Data (last 24 hrs) 09/11/20 20:40: WBC 9.4, Hgb 12.4, Hct 36.2, Plt Count 155 09/11/20 20:40: Sodium 134 L, Potassium 3.6, BUN 9, Creatinine 0.64, Glucose 333 H <Altaf Valente - Last Filed: 09/11/20 22:36> - Studies Laboratory Data (last 24 hrs) 09/11/20 20:40: WBC 9.4, Hgb 12.4, Hct 36.2, Plt Count 155 09/11/20 20:40: Sodium 134 L, Potassium 3.6, BUN 9, Creatinine 0.64, Glucose 333 H <hilda head - Last Filed: 09/12/20 10:52> Assessment and Plan - Plan Assessment Bilateral pyelonephritis Diabetes mellitus type 2 Hyperlipidemia Plan Bilateral pyelonephritis: Blood in urine cultures obtained, continue Rocephin at this time. Continue aggressive fluids. Patient does not appear septic at this time. DVT prophylaxis with Lovenox. Diabetes mellitus type 2: A.c. HS Accu-Cheks, sliding scale insulin therapy. Hyperlipidemia: Continue statin. Discharge Plan: Home Plan to discharge in: Greater than 2 days - Advance Directives Does patient have a Living Will: No Does patient have a Durable POA for Healthcare: No - Code Status/Comfort Care Code Status Assessed: Yes (Full code) Critical Care: No Time Spent Managing Pts Care (In Minutes): 55 <Altaf Valente - Last Filed: 09/11/20 22:36> Physician Review: Patient Assessed, Agree with Above Assessment and Plan Physician Review Additional Text: Acute pyelonephritis. COVID 19 infection. Plan: IV antibiotics. Follow urine culture and blood cultures <hilda head - Last Filed: 09/12/20 10:52>
[2020-09-11 23:18] LABS: Urine Blood 3+ (NEG); Urine Glucose 2+ (NEG); Urine Protein 1+ (NEG); Urine Specific Gravity 1.015 (1.005-1.030); Urine pH 6.5 (5.0-7.0)
[2020-09-11 23:22] VITALS: BMI 23.8
[2020-09-11 23:23] LABS: Urine Bacteria 20-50 /HPF (<20); Urine RBC 20-50 /HPF (NONE SEEN)
[2020-09-11] MEDS ORDERED: ACETAMINOPHEN 325 MG TABLET PO PRN (23:26)
[2020-09-11] MEDS ORDERED: ONDANSETRON 4 MG/2 ML VIAL IV PRN (23:26)
[2020-09-11] MEDS: NA CHLORIDE 0.9% 1,000 ML IV SCH (23:26)
[2020-09-12] MEDS: MORPHINE 2 MG/ML SYR IV PRN ×3 (00:55→14:05)
[2020-09-12] MEDS ORDERED: MORPHINE 2 MG/ML SYR ONE ×3 (01:08→13:36)
[2020-09-12 04:37] LABS: Absolute Lymphocytes (CBC) 1.2 K/uL (0.7-4.9); Basophils % 0.4 % (0-1.3); Hematocrit 30.8 % (36.0-45.0); MPV 11.3 fL (7.6-11.3); RBC Red Blood Cell Count 3.74 M/uL (3.86-4.86)
[2020-09-12 04:46] LABS: BUN Blood Urea Nitrogen 9 mg/dL (7-18); Bicarbonate 25 mmol/L (21-32); Glucose Level 282 mg/dL (74-106); Potassium 3.1 mmol/L (3.5-5.1); Sodium Level 137 mmol/L (136-145)
[2020-09-12] MEDS ORDERED: POTASSIUM CL SA 10 MEQ TAB PO ONE ×2 (05:48→06:00)
[2020-09-12] MEDS: NA CHLORIDE 0.9% 1,000 ML IV SCH ×3 (07:26→23:26)
[2020-09-12] MEDS: INSULIN -REGULAR HUMAN 50 UNIT/0.5 ML ML SQ SCH ×4 (07:30→21:00)
[2020-09-12] MEDS ORDERED: PNEUMOCOCCAL VACCINE 0.5 ML IMVAC ONE (08:00)
[2020-09-12] MEDS ORDERED: INFLUENZA VACCINE (for 3y+) 0.5 ML DOSE IMVAC ONE (08:00)
[2020-09-12 08:31] LABS: Ferritin 85.4 ng/mL (8-388)
[2020-09-12] MEDS ORDERED: CEFTRIAXONE/SWI 1gm 1 GM/10 ML SYR ONE (08:48)
[2020-09-12] MEDS ORDERED: INSULIN -REGULAR HUMAN 50 UNIT/0.5 ML ML ONE ×4 (08:48→22:19)
[2020-09-12] MEDS ORDERED: NA CHLORIDE 0.9% 1,000 ML ONE ×2 (08:49→22:19)
[2020-09-12] MEDS: CEFTRIAXONE/SWI 1gm 1 GM/10 ML SYR IV SCH (08:50)
[2020-09-12] MEDS: ENOXAPARIN 40 MG/0.4 ML SQ SCH (08:50)
[2020-09-12] MEDS: HYDROCODONE/APAP 5/325 MG TAB PO PRN (08:50)
[2020-09-12] MEDS ORDERED: ENOXAPARIN 40 MG/0.4 ML SQ ONE (08:59)
[2020-09-12] MEDS ORDERED: HYDROCODONE/APAP 5/325 MG TAB ONE (08:59)
[2020-09-12] MEDS ORDERED: CEFTRIAXONE 1 GM/NS 50 ML 1 GM/50 ML BAG IV SCH (09:00)
--- NOTE | 2020-09-12 13:10 | P.PN ---
Subjective Date of Service: 09/12/20 Primary Care Provider: none Chief Complaint: Pyelonephritis No major changes from yesterday. The patient is not requiring oxygen. Physical Examination - Vital Signs Temperature: 98.5 F Blood Pressure: 123/72 Pulse: 91 Respirations: 20 Pulse Ox (%): 99 - Physical Exam General: Alert, In no apparent distress HEENT: Mucous membr. moist/pink Neck: Supple Respiratory: Clear to auscultation bilaterally, Normal air movement Cardiovascular: Regular rate/rhythm, Normal S1 S2 Gastrointestinal: Normal bowel sounds, Soft and benign, No tenderness Musculoskeletal: No swelling, No tenderness Integumentary: No rashes, No erythema Neurological: Other (Nonfocal) - Studies Laboratory Data (last 24 hrs) 09/11/20 20:40: WBC 9.4, Hgb 12.4, Hct 36.2, Plt Count 155 09/11/20 20:40: Sodium 134 L, Potassium 3.6, BUN 9, Creatinine 0.64, Glucose 333 H Assessment And Plan - Current Problems (Diagnosis) (1) Acute pyelonephritis Current Visit: Yes Status: Acute (2) COVID-19 Current Visit: Yes Status: Acute (3) DM type 2 (diabetes mellitus, type 2) Current Visit: Yes Status: Acute - Plan Continue IV Rocephin. Follow urine culture and blood cultures. Start vitamin-C, D, and zinc supplementation. Insulin sliding scale for glucose management.
[2020-09-12] MEDS ORDERED: ACETAMINOPHEN 325 MG TABLET ONE (16:42)
[2020-09-13 02:44] VITALS: BP 123/82
[2020-09-13 05:24] LABS: Absolute Lymphocytes (CBC) 1.3 K/uL (0.7-4.9); Basophils % 0.4 % (0-1.3); Hematocrit 30.6 % (36.0-45.0); Lymphocytes % 15.5 % (15.3-44.8); MPV 10.7 fL (7.6-11.3); RBC Red Blood Cell Count 3.72 M/uL (3.86-4.86)
[2020-09-13 05:46] LABS: BUN Blood Urea Nitrogen 7 mg/dL (7-18); Bicarbonate 25 mmol/L (21-32); Glucose Level 188 mg/dL (74-106); Magnesium 1.9 mg/dL (1.8-2.4); Potassium 3.3 mmol/L (3.5-5.1); Sodium Level 135 mmol/L (136-145)
[2020-09-13] MEDS ORDERED: POTASSIUM CL SA 10 MEQ TAB PO ONE ×2 (06:32→06:52)
[2020-09-13 06:42] VITALS: TEMP 98.8
[2020-09-13] MEDS: INSULIN -REGULAR HUMAN 50 UNIT/0.5 ML ML SQ SCH (07:30)
[2020-09-13] MEDS: CEFTRIAXONE/SWI 1gm 1 GM/10 ML SYR IV SCH (08:08)
[2020-09-13] MEDS: HYDROCODONE/APAP 5/325 MG TAB PO PRN (08:08)
[2020-09-13] MEDS: ENOXAPARIN 40 MG/0.4 ML SQ SCH (08:08)
[2020-09-13] MEDS: NA CHLORIDE 0.9% 1,000 ML IV SCH (08:09)
[2020-09-13 08:23] VITALS: O2SAT 94
--- NOTE | 2020-09-13 08:55 | P.DS ---
Admission Date: 09/11/20 Discharge Date: 09/13/20 Primary Care Provider: none Disposition: ROUTINE DISCHARGE Discharge Condition: FAIR Reason for Admission: Pyelonephritis - Problems (1) Acute pyelonephritis Status: Acute (2) COVID-19 Status: Acute (3) DM type 2 (diabetes mellitus, type 2) Status: Acute Brief History of Present Illness: 39-year-old woman with a history of diabetes presented to the emergency department with a complain fever and back pain, dysuria and urinary frequency. She was prescribed Bactrim for UTI but her symptoms worsened and therefore presented to the ED. Urinalysis in the ED demonstrated UTI. CT abdomen and pelvis done in suggested moderate right pyelonephritis. Patient tested positive for COVID 19 in the ED. She was admitted for further management. Hospital Course: Patient admitted to the medical floor and treated with IV Rocephin. Blood culture yielded no growth. Urine culture yielded mixed growth. Patient clinically improved with treatment. She has had no fever for 24 hours. Patient has been asymptomatic from the COVID 19 infection. She is clinically stable and she is discharged with Omnicef to continue treatment for UTI and pyelonephritis. Vital Signs/Physical Exam: Temp Pulse Resp BP Pulse Ox 98.8 F 98 H 25 H 123/82 100 09/13/20 06:42 09/13/20 04:00 09/13/20 08:08 09/13/20 04:00 09/13/20 08:08 General: Alert, In no apparent distress Neck: Supple Respiratory: Normal air movement Cardiovascular: No edema, Regular rate/rhythm, Normal S1 S2 Gastrointestinal: Non-distended Musculoskeletal: No swelling Integumentary: No rashes Neurological: Other (Nonfocal.) Laboratory Data at Discharge: WBC 8.2 K/uL (4.3-10.9) 09/13/20 05:15 Hgb 10.2 g/dL (12.0-15.0) L 09/13/20 05:15 Hct 30.6 % (36.0-45.0) L 09/13/20 05:15 Plt Count 179 K/uL (152-406) D 09/13/20 05:15 Sodium 135 mmol/L (136-145) L 09/13/20 05:15 Potassium 3.3 mmol/L (3.5-5.1) L 09/13/20 05:15 BUN 7 mg/dL (7-18) 09/13/20 05:15 Creatinine 0.54 mg/dL (0.55-1.3) L 09/13/20 05:15 Glucose 188 mg/dL (74-106) H 09/13/20 05:15 Magnesium 1.9 mg/dL (1.8-2.4) 09/13/20 05:15 Home Medications: Atorvastatin Calcium 20 mg PO BEDTIME 09/11/20 Metformin HCl 1,000 mg PO BID 09/11/20 Ascorbic Acid [Vitamin C] 500 mg PO DAILY #30 tablet 09/13/20 Cefdinir [Omnicef] 300 mg PO BID #10 capsule 09/13/20 Cholecalciferol (Vitamin D3) [Vitamin D 1000 Iu Tab] 2,000 unit PO DAILY #60 tab 09/13/20 Zinc Sulfate [Zinc Sulfate*] 220 mg PO DAILY #30 cap 09/13/20 New Medications: Cefdinir [Omnicef] 300 mg PO BID #10 capsule Ascorbic Acid [Vitamin C] 500 mg PO DAILY #30 tablet Cholecalciferol (Vitamin D3) [Vitamin D 1000 Iu Tab] 2,000 unit PO DAILY #60 tab Zinc Sulfate [Zinc Sulfate*] 220 mg PO DAILY #30 cap Diet: ADA Activity: Ad keesha Followup: NONE,NONE [Primary Care Provider] - 1-2 Weeks Time spent managing pt's care (in minutes): 33
== END 2020-09-13 10:20 | disposition home or self-care (01) | DRG 689 ==
LOC: ER 20:18 → ERHOLD 22:08 → 3RD-ICU 09-13 07:42
PROVIDERS: ADMIT Internal Medicine; ATTEND Internal Medicine
DX: N10 Acute pyelonephritis (principal); U07.1 COVID-19; I10 Essential (primary) hypertension; E11.9 Type 2 diabetes mellitus without complications; E78.5 Hyperlipidemia, unspecified; Z79.84 Long term (current) use of oral hypoglycemic drugs; Z79.899 Other long term (current) drug therapy; Z98.51 Tubal ligation status
CPT/HCPCS: 36415; 74177; 80048; 81003; 81015; 81025; 82565; 82728; 82947; 83605; 83735; 84132; 84145; 85025; 86140; 87040; 87077; 87086; 87088; 87186; 87205; 96361; 96374; 99285; J0696; J1650; J2270; J7030; Q9967; U0003

== ENCOUNTER 2020-10-17 16:05 | Inpatient (IN) | payer SELFPAY ==
[2020-10-17] MEDS ORDERED: NA CHLORIDE 0.9% 1,000 ML ONE ×2 (17:15→19:09)
[2020-10-17] MEDS ORDERED: MORPHINE 4 MG/ML SYR ONE ×2 (17:15→21:27)
[2020-10-17] MEDS ORDERED: ONDANSETRON 4 MG/2 ML VIAL ONE ×2 (17:15→21:28)
[2020-10-17 17:29] LABS: Absolute Lymphocytes (CBC) 0.4 K/uL (0.7-4.9); Basophils % 0.5 % (0-1.3); Lymphocytes % 2.8 % (15.3-44.8); MPV 10.4 fL (7.6-11.3); RBC Red Blood Cell Count 3.83 M/uL (3.86-4.86)
[2020-10-17 18:07] LABS: Albumin 2.4 g/dL (3.4-5.0); Bilirubin Direct 0.2 mg/dL (0-0.2); Bilirubin Total 0.6 mg/dL (0.2-1.0); Potassium 3.9 mmol/L (3.5-5.1); Protein, Total 8.6 g/dL (6.4-8.2)
[2020-10-17 18:09] LABS: Blood Morphology Comment NOT SEEN (NOT SEEN); Platelet Estimate ADEQ; White Blood Cell Scan OK (OK)
[2020-10-17 18:09] LABS: Urine Blood 2+ (NEG); Urine Glucose 2+ (NEG); Urine Protein 2+ (NEG); Urine Specific Gravity 1.015 (1.005-1.030); Urine pH 5.5 (5.0-7.0)
[2020-10-17 18:37] LABS: Urine Amorphous Sediment 1+ /HPF (NONE SEEN); Urine Bacteria 20-50 /HPF (<20)
--- NOTE | 2020-10-17 18:58 | RAD REPORT ---
EXAM DESCRIPTION: CT - Abdomen Pelvis W Contrast - 10/17/2020 6:38 pm CLINICAL HISTORY: FLANK PAIN COMPARISON: Abdomen Pelvis W Contrast dated 09/11/2020 TECHNIQUE: Biphasic, helical CT imaging of the abdomen and pelvis was performed following 100 ml non -ionic IV contrast. No oral contrast administered. All CT scans are performed using dose optimization technique as appropriate and may include automated exposure control or mA/KV adjustment according to patient size. FINDINGS: No suspicious findings in the lung bases. The liver, spleen, and pancreas show no suspicious findings. Gallbladder and biliary tree are also wi thout suspicious finding. There is pronounced heterogeneity in the enhancement of the right kidney and to a lesser degree in th e upper pole of the left kidney. This is a prominent pyelonephritis pattern. No abscess identified. T here is stranding in the right side perinephric fat. Fitzgerald of the cecum and ascending colon are promi nent and there is minimal stranding adjacent to the right-side of the colon probably secondary involv ement from pyelonephritis. No urinary bladder abnormality seen. No adrenal abnormalities. Uterus and ovaries show no suspicious findings. No gastric dilatation or wall thickening. No small bowel abnormality. The appendix is not clearly def ined. Appendicitis is not suspected. Transverse colon and left side colon show no acute findings. No free air, free fluid or pneumatosis. No hernia, mass or bulky lymphadenopathy. No suspicious bony findings. IMPRESSION: Prominent pyelonephritis throughout the right kidney and the upper pole of the left kidn ey. No abscess or emergent complication. Mild wall thickening and stranding involving the cecum and ascending colon probably a secondary large bowel enteritis due to the pyelonephritis.
[2020-10-17] MEDS ORDERED: INSULIN -REGULAR HUMAN 50 UNIT/0.5 ML ML ONE (19:09)
[2020-10-17] MEDS ORDERED: CEFTRIAXONE/SWI 1gm 1 GM/10 ML SYR ONE (19:09)
[2020-10-17 20:15] LABS: Arterial Blood Carboxyhemoglob 1.7 % (0-1.5); Blood O2 Saturation 96.5 % (92-98.5)
--- NOTE | 2020-10-17 20:24 | EDPHYS ---
Physician Documentation [facility] Name: Tati Flaherty Age: 39 yrs Sex: Female : 1980 Arrival Date: 10/17/2020 Time: 16:07 Bed 15 Private MD: ED Physician Hugo Fonseca HPI: 10/17 16:53 This 39 yrs old Female presents to ER via Wheelchair with complaints of Flank pm1 Pain, Weakness. 16:53 The patient complains of pain in the right low back. The pain radiates to the right pm1 lower quadrant. Onset: The symptoms/episode began/occurred 3 day(s) ago. Modifying factors: The symptoms are alleviated by nothing. the symptoms are aggravated by nothing. Associated signs and symptoms: Pertinent positives: nausea, vomiting, decreased PO intake, Pertinent negatives: diarrhea, dysuria, fever, chest pain, shortness of breath. Severity of pain: in the emergency department the pain is actually worse. The patient has not experienced similar symptoms in the past. The patient has not recently seen a physician. 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 - Social history:: Smoking status: . ROS: 16:53 Constitutional: Negative for fever, chills, and weight loss, Cardiovascular: Negative pm1 for chest pain, palpitations, and edema, Respiratory: Negative for shortness of breath, cough, wheezing, and pleuritic chest pain. 16:53 : Negative for injury, bleeding, discharge, and swelling, MS/Extremity: Negative for injury and deformity, Skin: Negative for injury, rash, and discoloration. 16:53 Abdomen/GI: Positive for abdominal pain, nausea and vomiting, Negative for diarrhea, constipation. 16:53 Back: Positive for flank pain, on the right. 16:53 Neuro: Positive for Generalized weakness. Exam: 16:53 Constitutional: This is a well developed, well nourished patient who is awake, alert, pm1 and in no acute distress. Head/Face: Normocephalic, atraumatic. 16:53 Respiratory: Lungs have equal breath sounds bilaterally, clear to auscultation and percussion. No rales, rhonchi or wheezes noted. No increased work of breathing, no retractions or nasal flaring. 16:53 Skin: Warm, dry with normal turgor. Normal color with no rashes, no lesions, and no evidence of cellulitis. MS/ Extremity: Pulses equal, no cyanosis. Neurovascular intact. Full, normal range of motion. 16:53 Cardiovascular: Rate: tachycardic, Rhythm: regular, Pulses: no pulse deficits are appreciated, Edema: is not appreciated. 16:53 Abdomen/GI: Inspection: abdomen appears normal, Palpation: soft, in all quadrants, mild abdominal tenderness, in the right lower quadrant. 16:53 Back: CVA tenderness, that is mild, is noted on the right. 16:53 Neuro: Exam negative for acute changes, Orientation: is normal, Mentation: is normal, Motor: is normal, moves all fours. Vital Signs: 16:35 BP 105 / 67; Pulse 126; Resp 18; Temp 97.9; Pulse Ox 98% on R/A; Weight 54.43 kg (R); tw2 Pain 7/10; 17:29 BP 107 / 71; Pulse 104; Resp 17; Temp 97.7(O); Pulse Ox 97% on R/A; mh5 18:43 BP 101 / 70; Pulse 94; Resp 17; Temp 98.0(O); Pulse Ox 99% ; mh5 19:40 BP 104 / 70; Pulse 90; Resp 18; Pulse Ox 98% on R/A; ll2 MDM: 16:44 Patient medically screened. [facility] 16:53 Data interpreted: Pulse oximetry: on room air is 97 %. Interpretation: normal. pm1 17:37 Data reviewed: vital signs. pm1 19:50 Counseling: I had a detailed discussion with the patient and/or guardian regarding: the pm1 historical points, exam findings, and any diagnostic results supporting the discharge/admit diagnosis, lab results, radiology results, the need for further work-up and treatment in the hospital. 20:21 Physician consultation: Altaf Attema INSURANCE CLAIMS ANALYST-C was called at 20:21, was contacted at 20:21, pm1 regarding admission, patient's condition, add procalcitonin and lactate. 10/17 16:52 Order name: Basic Metabolic Panel; Complete Time: 18:37 pm1 10/17 16:52 Order name: CBC with Diff; Complete Time: 18:37 pm1 10/17 16:52 Order name: Hepatic Function; Complete Time: 18:37 pm1 10/17 16:52 Order name: Lipase; Complete Time: 18:37 pm1 10/17 16:55 Order name: Urine Microscopic Only; Complete Time: 18:37 pm1 10/17 17:27 Order name: Urine Dipstick--Ancillary (enter results); Complete Time: 18:37 bd 10/17 17:27 Order name: Urine --Ancillary (enter results); Complete Time: 18:37 bd 10/17 18:09 Order name: CBC Smear Scan; Complete Time: 18:37 EDMS 10/17 18:38 Order name: Urine Culture EDMS 10/17 18:39 Order name: Blood Culture Adult (2) pm1 10/17 19:02 Order name: Glucose, Ancillary Testing; Complete Time: 19:06 EDMS 10/17 19:46 Order name: ABG; Complete Time: 20:18 pm1 10/17 19:46 Order name: BMP; Complete Time: 20:39 pm1 10/17 19:46 Order name: Ketone, Serum; Complete Time: 20:39 pm1 10/17 16:55 Order name: CT Abd/Pelvis - IV Contrast Only; Complete Time: 19:06 pm1 10/17 19:50 Order name: BMP; Complete Time: 21:47 ll2 10/17 20:21 Order name: Procalcitonin; Complete Time: 21:47 pm1 10/17 20:21 Order name: Lactate; Complete Time: 21:47 pm1 10/17 20:24 Order name: Glucose, Ancillary Testing; Complete Time: 20:30 EDMS 10/17 22:19 Order name: SARS-COV-2 RT PCR; Complete Time: 22:21 EDMS 10/17 16:52 Order name: IV Saline Lock; Complete Time: 17:11 pm1 10/17 16:52 Order name: Labs collected and sent; Complete Time: 17:11 pm1 10/17 16:55 Order name: Urine Dipstick-Ancillary (obtain specimen); Complete Time: 17:11 pm1 10/17 16:55 Order name: Urine Test (obtain specimen); Complete Time: 17:11 pm1 Administered Medications: 17:00 Drug: NS 0.9% 1000 ml Route: IV; Rate: 1000 ml; Site: right forearm; ca1 18:10 Follow up: Response: No adverse reaction; IV Status: Completed infusion; IV Intake: ca1 1000ml 17:11 Drug: morphine 4 mg Route: IVP; Site: right forearm; bp 18:00 Follow up: Response: No adverse reaction; Pain is decreased; RASS: Alert and Calm (0) ca1 17:11 Drug: Zofran (Ondansetron) 4 mg Route: IVP; Site: right forearm; ca1 18:00 Follow up: Response: No adverse reaction; Nausea is decreased ca1 18:40 Drug: NS 0.9% 1000 ml Route: IV; Rate: 1000 ml; Site: right antecubital; ca1 19:40 Follow up: Response: No adverse reaction; IV Status: Completed infusion; IV Intake: ll2 1000ml 18:58 Drug: Insulin Regular Human 10 units {Co-Signature: bp (Elijah Peralta RN).} Route: IVP; ca1 Site: right antecubital; 19:58 Follow up: Response: No adverse reaction ll2 19:03 Drug: Rocephin 1 grams Route: IV; Rate: calculated rate; Site: right antecubital; ca1 19:05 Follow up: Response: No adverse reaction; IV Status: Completed infusion ll2 20:41 Drug: Flagyl 500 mg Volume: 100 ml; Route: IVPB; Rate: 200 ml/hr; Infused Over: 30 ll2 mins; Site: right forearm; 21:15 Follow up: Response: No adverse reaction; IV Status: Completed infusion; IV Intake: ll2 100ml 21:28 Drug: Zofran (Ondansetron) 4 mg Route: IVP; Site: right antecubital; ll2 22:04 Follow up: Response: No adverse reaction ll2 21:28 Drug: morphine 4 mg Route: IVP; Site: right antecubital; ll2 22:04 Follow up: Response: No adverse reaction; RASS: Alert and Calm (0) ll2 Disposition: 10/18 06:55 Co-signature as Attending Physician, Hugo Fonseca MD I agree with the assessment and rafal plan of care. Disposition: 10/17/20 20:23 Hospitalization ordered by Marcial Torrez for Inpatient Admission. Preliminary diagnosis are Bilateral pyelonephritis, Dehydration, Hyperglycemia, unspecified, Enteritis, Vomiting. - Bed requested for Telemetry/MedSurg (Inpatient). - Status is Inpatient Admission. ll2 - Condition is Stable. - Problem is new. - Symptoms have improved. Signatures: Dispatcher [employer] EDKY Tati Patterson, RN Hugo Garcia MD MD cha Attema, Lee, INSURANCE CLAIMS ANALYST-C INSURANCE CLAIMS ANALYST-Cla1 Micky Skinner, GLOST KILN OPERATOR GLOST KILN OPERATOR pm1 Ligia Win RN RN tw2 Elijah Peralta RN RN bp Alejandra Bang RN RN ca1 Keily Gimenez, KADY RN ll2 Elijah Peralta RN bp Corrections: (The following items were deleted from the chart) 10/17 19:51 19:50 ACETONE, SERUM+C.LAB.BRZ ordered. EDKY EDKY 20:24 20:23 Hospitalization Ordered by Marcial Torrez MD for Inpatient Admission. Preliminary pm1 diagnosis is Bilateral pyelonephritisDehydration; Hyperglycemia, unspecified; Enteritis. Bed requested for Telemetry/MedSurg (Inpatient). Status is Inpatient Admission. Condition is Stable. Problem is new. Symptoms have improved. pm1 21:14 19:50 Arterial Blood Gas+RC.LAB.BRZ ordered. EDKY EDMS 21:33 20:31 CORONAVIRUS+MR.LAB.BRZ ordered. EDKY EDMS 22:27 20:24 10/17/2020 20:23 Hospitalization Ordered by Marcial Torrez MD for Inpatient Admission. Preliminary diagnosis is Bilateral pyelonephritisDehydration; Hyperglycemia, unspecified; Enteritis; Vomiting. Bed requested for Telemetry/MedSurg (Inpatient). Status is Inpatient Admission. Condition is Stable. Problem is new. Symptoms have improved. pm1 23:31 22:27 10/17/2020 20:23 Hospitalization Ordered by Marcial Torrez MD for Inpatient ll2 Admission. Preliminary diagnosis is Bilateral pyelonephritisDehydration; Hyperglycemia, unspecified; Enteritis; Vomiting. Bed requested for Telemetry/MedSurg (Inpatient). Status is Inpatient Admission. Condition is Stable. Problem is new. Symptoms have improved. mw
--- NOTE | 2020-10-17 20:24 | ER ---
Nurse's Notes [facility] Name: Tati Flaherty Age: 39 yrs Sex: Female : 1980 Arrival Date: 10/17/2020 Time: 16:07 Bed 15 Private MD: Diagnosis: Dehydration;Hyperglycemia, unspecified;Bilateral pyelonephritis;Enteritis;Vomiting Presentation: 10/17 16:35 Chief complaint: Patient states: i am having a lot of back and stomach pain and 3 days tw2 not eating anything and i felt nauseous yesterday and today. Coronavirus screen: nausea, vomiting. Client presents with at least one sign or symptom that may indicate coronavirus-19. Standard/surgical mask placed on the client. Provider contacted for isolation considerations. Ebola Screen: Patient denies travel to an Ebola-affected area in the 21 days before illness onset. Initial Sepsis Screen: Does the patient meet any 2 criteria? HR > 90 bpm. No. Patient's initial sepsis screen is negative. Does the patient have a suspected source of infection? No. Patient's initial sepsis screen is negative. Risk Assessment: Do you want to hurt yourself or someone else? Patient reports no desire to harm self or others. Onset of symptoms was October 17, 2020. 16:35 Method Of Arrival: Wheelchair tw2 16:35 Acuity: NICK 3 tw2 Triage Assessment: 16:37 General: Appears uncomfortable, obese, Behavior is calm, cooperative, appropriate for tw2 age. Pain: Complains of pain in back and abdomen. GI: Reports intolerance of fluids, intolerance of food, nausea, vomiting. 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 - Social history:: Smoking status: . Screenin:45 Abuse screen: Denies threats or abuse. Denies injuries from another. Nutritional ca1 screening: No deficits noted. Tuberculosis screening: No symptoms or risk factors identified. Fall Risk IV access (20 points). Assessment: 16:45 General: Appears in no apparent distress. comfortable, Behavior is calm, cooperative, ca1 appropriate for age. Pain: Complains of pain in right lower quadrant Pain radiates to right low back Pain currently is 9 out of 10 on a pain scale. Pain began 1 day ago. Is intermittent. Neuro: Level of Consciousness is awake, alert, obeys commands, Oriented to person, place, time, situation. Cardiovascular: Heart tones S1 S2 present Capillary refill < 3 seconds Patient's skin is warm and dry. Respiratory: Airway is patent Respiratory effort is even, unlabored, Respiratory pattern is regular, symmetrical, Breath sounds are clear bilaterally. GI: Abdomen is round non-distended, Bowel sounds present X 4 quads. Abd is soft X 4 quads Abdomen is tender to palpation in right upper quadrant and right lower quadrant. GI: Reports nausea, vomiting. : No signs and/or symptoms were reported regarding the genitourinary system. EENT: No signs and/or symptoms were reported regarding the EENT system. Derm: Skin is intact, is healthy with good turgor, Skin is pink, warm \T\ dry. Musculoskeletal: Circulation, motion, and sensation intact. Capillary refill < 3 seconds. 17:43 Reassessment: Patient appears in no apparent distress at this time. Patient and/or ca1 family updated on plan of care and expected duration. Pain level reassessed. Patient is alert, oriented x 3, equal unlabored respirations, skin warm/dry/pink. 18:50 Reassessment: Patient appears in no apparent distress at this time. Patient and/or ca1 family updated on plan of care and expected duration. Pain level reassessed. Patient is alert, oriented x 3, equal unlabored respirations, skin warm/dry/pink. 19:50 Reassessment: Patient and/or family updated on plan of care and expected duration. Pain ll2 level reassessed. Patient is alert, oriented x 3, equal unlabored respirations, skin warm/dry/pink. 21:55 Reassessment: Patient and/or family updated on plan of care and expected duration. Pain ll2 level reassessed. Patient is alert, oriented x 3, equal unlabored respirations, skin warm/dry/pink. 22:29 Reassessment: Patient and/or family updated on plan of care and expected duration. Pain ll2 level reassessed. Patient is alert, oriented x 3, equal unlabored respirations, skin warm/dry/pink. attempted to give report, requested by sue to give her some time and she would call me back. 22:43 Reassessment: report given to NIKKI rogers. ll2 23:30 Reassessment:. ll2 Vital Signs: 16:35 BP 105 / 67; Pulse 126; Resp 18; Temp 97.9; Pulse Ox 98% on R/A; Weight 54.43 kg (R); tw2 Pain 7/10; 17:29 BP 107 / 71; Pulse 104; Resp 17; Temp 97.7(O); Pulse Ox 97% on R/A; mh5 18:43 BP 101 / 70; Pulse 94; Resp 17; Temp 98.0(O); Pulse Ox 99% ; mh5 19:40 BP 104 / 70; Pulse 90; Resp 18; Pulse Ox 98% on R/A; ll2 ED Course: 16:07 Patient arrived in ED. ag3 16:37 Triage completed. tw2 16:37 Arm band placed on. tw2 16:42 Micky Skinner NP is PHCP. pm1 16:42 Hugo Fonseca MD is Attending Physician. pm1 17:04 Alejandra Bang RN is Primary Nurse. ca1 17:10 Initial lab(s) drawn, by me, sent to lab. Inserted saline lock: 20 gauge in right ca1 forearm, using aseptic technique. ,using aseptic technique. by NIKKI Nava Blood collected. 17:27 Urine --Ancillary (enter results) Sent. [facility] 17:28 Patient has correct armband on for positive identification. Fall risk band placed. Bed [facility] in low position. Call light in reach. Side rails up X 1. Warm blanket given. Pulse ox on. NIBP on. 18:11 Notified Nurse Practitioner and/or Physician Distributed Generation Project Manager of a critical lab result(s), ca1 Glucose 451. 18:38 CT Abd/Pelvis - IV Contrast Only In Process Unspecified. EDMS 18:52 First set of blood cultures drawn by me. ca1 19:00 Inserted saline lock: 22 gauge in right antecubital area, using aseptic technique. ca1 Blood collected. 19:05 Report given to Keily, RN. ca1 19:49 Primary Nurse role handed off by Alejandra Bang RN ll2 19:49 Keily Gimenez, NIKKI is Primary Nurse. ll2 20:22 Marcial Torrez MD is Hospitalizing Provider. pm1 23:00 No provider procedures requiring assistance completed. Patient admitted, IV remains in ll2 place. Administered Medications: 17:00 Drug: NS 0.9% 1000 ml Route: IV; Rate: 1000 ml; Site: right forearm; ca1 18:10 Follow up: Response: No adverse reaction; IV Status: Completed infusion; IV Intake: ca1 1000ml 17:11 Drug: morphine 4 mg Route: IVP; Site: right forearm; bp 18:00 Follow up: Response: No adverse reaction; Pain is decreased; RASS: Alert and Calm (0) ca1 17:11 Drug: Zofran (Ondansetron) 4 mg Route: IVP; Site: right forearm; ca1 18:00 Follow up: Response: No adverse reaction; Nausea is decreased ca1 18:40 Drug: NS 0.9% 1000 ml Route: IV; Rate: 1000 ml; Site: right antecubital; ca1 19:40 Follow up: Response: No adverse reaction; IV Status: Completed infusion; IV Intake: ll2 1000ml 18:58 Drug: Insulin Regular Human 10 units {Co-Signature: bp (Elijah Peralta RN).} Route: IVP; ca1 Site: right antecubital; 19:58 Follow up: Response: No adverse reaction ll2 19:03 Drug: Rocephin 1 grams Route: IV; Rate: calculated rate; Site: right antecubital; ca1 19:05 Follow up: Response: No adverse reaction; IV Status: Completed infusion ll2 20:41 Drug: Flagyl 500 mg Volume: 100 ml; Route: IVPB; Rate: 200 ml/hr; Infused Over: 30 ll2 mins; Site: right forearm; 21:15 Follow up: Response: No adverse reaction; IV Status: Completed infusion; IV Intake: ll2 100ml 21:28 Drug: Zofran (Ondansetron) 4 mg Route: IVP; Site: right antecubital; ll2 22:04 Follow up: Response: No adverse reaction ll2 21:28 Drug: morphine 4 mg Route: IVP; Site: right antecubital; ll2 22:04 Follow up: Response: No adverse reaction; RASS: Alert and Calm (0) ll2 Intake: 18:10 IV: 1000ml; Total: 1000ml. ca1 19:40 IV: 1000ml; Total: 2000ml. ll2 21:15 IV: 100ml; Total: 2100ml. ll2 Outcome: 20:23 Decision to Hospitalize by Provider. pm1 23:00 Admitted to Med/surg accompanied by tech, via wheelchair, Report called to nikki rogers ll2 23:00 Condition: stable ll2 23:00 Instructed on the need for admit. 23:31 Patient left the ED. ll2 Signatures: Dispatcher [employer] EDMS Micky Skinner, [place] ELECTRODE CLEANER pm1 Ligia Win RN RN 2 Ana Willis [facility] Elijah Peralta RN RN bp Claudia Langley 3 Alejandra Bang RN RN ca1 Keily Gimenez RN RN ll2 Elijah Peralta RN bp
[2020-10-17 20:35] LABS: BUN Blood Urea Nitrogen 18 mg/dL (7-18); Bicarbonate 21 mmol/L (21-32); Glucose Level 324 mg/dL (74-106); Potassium 3.8 mmol/L (3.5-5.1); Sodium Level 129 mmol/L (136-145)
[2020-10-17] MEDS ORDERED: METRONIDAZOLE 500mg IVPB 500 MG/100 ML BAG IV ONE (20:46)
[2020-10-17 21:34] LABS: Potassium 3.9 mmol/L (3.5-5.1)
--- NOTE | 2020-10-17 22:01 | P.HP ---
Certification for Inpatient Patient admitted to: Inpatient With expected LOS: >2 Midnights Patient will require the following post-hospital care: None Practitioner: I am a practitioner with admitting privileges, knowledge of patient current condition, hospital course, and medical plan of care. Services: Services provided to patient in accordance with Admission requirements found in Title 42 Section 412.3 of the Code of Federal Regulations <[email or web address] - Last Filed: 10/17/20 21:57> Patient History Date of Service: 10/17/20 Reason for admission: Bilateral pyelonephritis History of Present Illness: 39-year-old female with history of diabetes mellitus type 2, hypertension presents the emergency department for right flank pain. Patient was admitted on 09/11/2020 for pyelonephritis. She stayed for a few days and did well. Patient reports that she has had 3-4 days of severe right flank pain with nausea and vomiting. Labs revealed elevated blood glucose level 414 sodium was initially 122 by corrected sodium was 128. White blood cell count 15 hemoglobin 10, hematocrit 31 blood gas with pH of 7.38. Anion gap after fluids is only 9. Patient not currently in DKA. CT reveals prominent pyelonephritis throughout the right kidney and upper pole of the left kidney without abscess or emergent complication, mild wall thickening and stranding involving the cecum and ascending colon probably secondary large-bowel enteritis due to the pyelonephritis. Patient was given Flagyl and Rocephin in the emergency departm ent, lactate within normal limits on the pro calcitonin significantly elevated. Patient does not appear septic at this time. Will admit for further evaluation and management. 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 - Social History Smoking Status: Never smoker Alcohol use: No CD- Drugs: No Caffeine use: No Place of Residence: Home <Altaf Valente - Last Filed: 10/17/20 21:57> Date of Service: 10/26/20 <Marcial Torrez - Last Filed: 10/26/20 15:01> Allergies No Known Allergies Allergy (Verified 09/11/20 23:23) Home Medications: Atorvastatin Calcium 20 mg PO BEDTIME 09/11/20 Metformin HCl 1,000 mg PO BID 09/11/20 Alcohol Antiseptic Pads [Alcohol Swabs] 1 each TP TID #100 med..pad 10/26/20 Ascorbate Calcium [Vitamin C] 2,000 mg PO TID #360 tablet 10/26/20 Blood-Glucose Meter [Contour] 1 each MC TID #1 kit 10/26/20 Cholecalciferol (Vitamin D3) [Vitamin D 5,000 Iu Cap] 5,000 unit PO DAILY #30 cap 10/26/20 Ertapenem Na [Invanz] 1 gm IVPB DAILY #19 vial 10/26/20 Insulin NPH Human [Novolin N (Humulin N)*] 15 units SQ BIDWM #10 ml 10/26/20 Ivermectin 3 mg PO ONCE #6 tablet 10/26/20 Ivermectin 12 mg PO ONCE #8 tablet 10/26/20 Syringe with Needle, 1 ml [Easy Touch] 1 each MC TID #60 disp.syrin 10/26/20 Zinc Sulfate [Zinc Sulfate*] 220 mg PO DAILY #30 cap 10/26/20 Review of Systems General: Fever, Chills, Weakness, Malaise Gastrointestinal: Nausea, Vomiting, Abdominal Pain, Other (Flank pain) Genitourinary: Dysuria <Altaf Valente - Last Filed: 10/17/20 21:57> Physical Examination - Physical Exam General: Alert, In no apparent distress, Oriented x3 HEENT: Atraumatic, Normocephalic, Other (Mucous membranes dry) Neck: Supple, Other Respiratory: Clear to auscultation bilaterally, Normal air movement Cardiovascular: No edema, Normal S1 S2 Capillary refill: <2 Seconds Gastrointestinal: Normal bowel sounds, Other (Mild right upper and lower quadrant tenderness, CVA tenderness present bilaterally.) Musculoskeletal: No erythema, No tenderness, No warmth Integumentary: No significant lesion, No tenderness/swelling, No erythema Neurological: Normal speech, Normal strength at 5/5 x4 extr, Normal tone, Sensation intact - Studies Laboratory Data (last 24 hrs) 10/17/20 20:38: Sodium 129 L, Potassium 3.9, BUN 17, Creatinine 0.97, Glucose 310 H 10/17/20 19:57: Sodium 129 L, Potassium 3.8, BUN 18, Creatinine 0.95, Glucose 324 H 10/17/20 17:12: WBC 15.0 H, Hgb 10.1 L, Hct 31.0 L, Plt Count 278 10/17/20 17:12: Sodium 122 L, Potassium 3.9, BUN 18, Creatinine 1.35 H, Glucose 451 H*, Total Bilirubin 0.6, AST 20, ALT 28, Alkaline Phosphatase 186 H, Lipase 58 L <Altaf Valente - Last Filed: 10/17/20 21:57> Assessment and Plan - Plan Assessment Bilateral pyelonephritis Colitis Diabetes mellitus type 2 with hyperglycemia Hypertension Plan Bilateral pyelonephritis: Continue with aggressive IV fluids, patient received 2 L normal saline bolus in the emergency department, lactate normal at this time. Patient does not appear septic. Continue with IV antibiotics, Rocephin and Flagyl due to associated colitis. Clear liquids, advance as tolerated. P.r.n. pain and nausea medications. DVT prophylaxis Lovenox 40 mg subcutaneous once daily. Colitis: Rocephin, Flagyl. Clear liquids, advance as tolerated. Diabetes mellitus type 2 with hyperglycemia: A.c. HS Accu-Cheks, sliding scale insulin therapy. A1c with morning labs. Hypertension: Obtain home medications, blood pressure on the low side, hold for now. Will restart as appropriate. Discharge Plan: Home Plan to discharge in: Greater than 2 days - Advance Directives Does patient have a Living Will: No Does patient have a Durable POA for Healthcare: No - Code Status/Comfort Care Code Status Assessed: Yes (Full code) Critical Care: No Time Spent Managing Pts Care (In Minutes): 55 <Altaf Valente - Last Filed: 10/17/20 21:57> - Plan Plan of care discussed with Altaf Valente at time of admission. Agree with plan as noted above. b/l pyelonephritis, never adequately treated for ESBL over past ~1month, start meropenem while awaiting urine culture <Marcial Torrez - Last Filed: 10/26/20 15:01>
[2020-10-17] MEDS ORDERED: HYDROMORPHONE HCL 0.5 MG/0.5 ML INJ IV PRN (23:14)
[2020-10-17] MEDS ORDERED: ACETAMINOPHEN 500 MG TAB PO ONE (23:39)
[2020-10-17] MEDS: ONDANSETRON 4 MG/2 ML VIAL IV PRN (23:44)
[2020-10-17] MEDS: NA CHLORIDE 0.9% 1,000 ML IV SCH (23:44)
[2020-10-18] MEDS: HYDROMORPHONE HCL 1 MG/ML INJ IV PRN (00:25)
[2020-10-18 00:38] VITALS: BMI 22.6
[2020-10-18] MEDS ORDERED: Meropenem 1000 MG/VIAL IV SCH (01:00)
[2020-10-18] MEDS ORDERED: METRONIDAZOLE 500mg IVPB 500 MG/100 ML BAG IV SCH (01:00)
[2020-10-18] MEDS ORDERED: Meropenem 1 GM/100 ML BAG ONE (02:24)
[2020-10-18 04:13] LABS: Absolute Lymphocytes (CBC) 0.6 K/uL (0.7-4.9); Basophils % 0.3 % (0-1.3); Hematocrit 26.3 % (36.0-45.0); Lymphocytes % 5.7 % (15.3-44.8); MPV 10.3 fL (7.6-11.3); RBC Red Blood Cell Count 3.24 M/uL (3.86-4.86)
[2020-10-18 04:35] LABS: Potassium 4.1 mmol/L (3.5-5.1)
[2020-10-18] MEDS: NA CHLORIDE 0.9% 1,000 ML IV SCH ×3 (06:11→19:51)
[2020-10-18] MEDS ORDERED: GLUCAGON 1 MG/VIAL IM PRN (06:29)
[2020-10-18] MEDS ORDERED: D50W 25 GM/50 ML SYRINGE IV PRN (06:29)
[2020-10-18] MEDS ORDERED: INFLUENZA VACCINE (for 3y+) 0.5 ML DOSE IMVAC ONE (08:00)
[2020-10-18] MEDS ORDERED: CEFTRIAXONE/SWI 1gm 1 GM/10 ML SYR IV SCH (09:00)
[2020-10-18] MEDS ORDERED: CEFTRIAXONE 1 GM/NS 50 ML 1 GM/50 ML BAG IV SCH (09:00)
[2020-10-18] MEDS: INSULIN -REGULAR HUMAN 50 UNIT/0.5 ML ML SQ SCH ×4 (09:22→22:54)
[2020-10-18] MEDS: Meropenem 1,000 MG in NA CHLORIDE 0.9% 100 ML IV SCH ×2 (09:22→18:25)
[2020-10-18] MEDS: ENOXAPARIN 40 MG/0.4 ML SQ SCH (09:22)
[2020-10-18] MEDS: ONDANSETRON 4 MG/2 ML VIAL IV PRN (09:24)
[2020-10-18] MEDS: MORPHINE 2 MG/ML SYR IV PRN (09:24)
[2020-10-18] MEDS: NPH (HUMAN) 100 UNITS/ML INSULIN SQ SCH ×2 (12:39→18:29)
--- NOTE | 2020-10-18 13:45 | CON ---
History Of Present Illness: This is a 39-year-old female coming in. I was consulted for urinary tra ct infection and pyelonephritis. Patient is a 39-year-old diabetic with history of hypertension, com ing in with right flank discomfort. Denies any nausea, vomiting, chest pain, abdominal pain, also garcia s burning urination. Patient on admission showed has leukocytosis of 15,000 and anemic. The patient 's kidney function was normal. She was recently admitted to the hospital about a month ago when her COVID was positive. The patient this time is coming in with pyelonephritis. As per abdominal CT pat ient has prominent pyelonephritis throughout the right kidney and upper pole of the left kidney. No abscesses or emergent complication. Past Medical History: Hypertension, diabetes mellitus, and COVID-19 one month ago. Social History: Nonsmoker, nondrinker. Family History: Noncontributory. Medications: Meropenem. See MAR for other medications. Allergies: NO KNOWN DRUG ALLERGIES. Review of Systems: A 10-point review was performed. Physical Examination: General: This is a 39-year-old female coming in with right-sided and bilateral pyelonephritis, mostl y involving right kidney. Vital Signs: Temperature 99.5, pulse 106, respiration 19, blood pressure 100/63. HEENT: Unremarkable. Neck: Supple. Lungs: Basal crackles. Heart: S1, S2. Regular. Abdomen: Soft. Bowel sounds present. Tenderness on right CVA angle. Extremities: No edema. Laboratory Data: Shows WBC 9.7 down from 15, hemoglobin 8.6, platelets 224. Chemistry shows sodium 130, potassium 4.1, chloride 101, bicarb 20, BUN 15, creatinine 0.8, glucose 303. CT scan showing ri ght-sided pyelonephritis and left upper pole of kidney showing also infection. Assessment And Plan: Pyelonephritis secondary to extended spectrum beta-lactamase infection noted on previous admission. Right now patient is growing 2+ gram-negative rods. We will recommend treatmen t, total course of 4 weeks of IV antibiotic. Continue meropenem, can be switched to Invanz if it is not Pseudomonas. We will follow the patient closely. Thank you Dr. Torrez for consult. NF/MODL Voice ID: [id number] Report ID: [id number]
[2020-10-18] MEDS ORDERED: D50W 25 GM/50 ML VIAL IV PRN (15:57)
[2020-10-18] MEDS: ACETAMINOPHEN 500 MG TAB PO PRN ×2 (19:13→22:53)
--- NOTE | 2020-10-18 19:20 | P.PN ---
Subjective Date of Service: 10/18/20 Chief Complaint: Bilateral pyelonephritis Subjective: Improving (slight improvement in pain overnight, needing pain medication. +nausea as well) Review of Systems 10-point ROS is otherwise unremarkable Physical Examination - Vital Signs Temperature: 101.1 F Blood Pressure: 129/75 Pulse: 113 Respirations: 18 Pulse Ox (%): 97 - Physical Exam General: Alert, Mild distress HEENT: Sclerae nonicteric Respiratory: Clear to auscultation bilaterally Cardiovascular: Regular rate/rhythm Gastrointestinal: Tenderness (b/l CVA tenderness, R sided tenderness) Integumentary: No rashes Neurological: Normal speech, Normal affect - Studies Laboratory Data (last 24 hrs) 10/17/20 20:38: Sodium 129 L, Potassium 3.9, BUN 17, Creatinine 0.97, Glucose 310 H 10/17/20 19:57: Sodium 129 L, Potassium 3.8, BUN 18, Creatinine 0.95, Glucose 324 H Assessment & Plan Physician Review Additional Text: Bilateral pyelonephritis Colitis Diabetes mellitus type 2 with hyperglycemia Hypertension Plan Bilateral pyelonephritis: continue IVF, continue Meropenem - review of Ur culture 1 month ago with ESBL, did not receive meropenem will further discuss with ID given b/l pyelonephritis and adjacent colitis continue IV pain medication PRN Diabetes mellitus type 2 with hyperglycemia: A.c. HS Accu-Cheks, sliding scale insulin therapy. start scheduled NPH Hypertension: not on home meds, low-nl BP for now, continue to monitor Dispo: hospitalization > 2 days, will likely need 4 weeks of IV Abx Time Spent Managing Pts Care (In Minutes): 40
[2020-10-19] MEDS: Meropenem 1,000 MG in NA CHLORIDE 0.9% 100 ML IV SCH ×3 (01:07→15:41)
[2020-10-19] MEDS: NA CHLORIDE 0.9% 1,000 ML IV SCH ×4 (02:03→23:13)
[2020-10-19] MEDS: ONDANSETRON 4 MG/2 ML VIAL IV PRN (03:47)
[2020-10-19] MEDS: HYDROMORPHONE HCL 1 MG/ML INJ IV PRN ×2 (03:47→14:33)
[2020-10-19 04:16] LABS: Absolute Lymphocytes (CBC) 0.7 K/uL (0.7-4.9); Basophils % 0.3 % (0-1.3); Hematocrit 26.3 % (36.0-45.0); Lymphocytes % 10.8 % (15.3-44.8); RBC Red Blood Cell Count 3.29 M/uL (3.86-4.86)
[2020-10-19 04:32] LABS: BUN Blood Urea Nitrogen 10 mg/dL (7-18); Bicarbonate 20 mmol/L (21-32); Glucose Level 207 mg/dL (74-106); Magnesium 2.1 mg/dL (1.8-2.4); Potassium 3.3 mmol/L (3.5-5.1); Sodium Level 136 mmol/L (136-145)
[2020-10-19] MEDS ORDERED: POTASSIUM CL SA 10 MEQ TAB PO ONE (04:44)
[2020-10-19] MEDS: INSULIN -REGULAR HUMAN 50 UNIT/0.5 ML ML SQ SCH ×4 (07:30→20:45)
[2020-10-19] MEDS: NPH (HUMAN) 100 UNITS/ML INSULIN SQ SCH ×2 (08:09→18:02)
[2020-10-19] MEDS: ACETAMINOPHEN 500 MG TAB PO PRN ×3 (08:11→20:57)
[2020-10-19] MEDS: ENOXAPARIN 40 MG/0.4 ML SQ SCH (08:16)
[2020-10-19] MEDS: MORPHINE 2 MG/ML SYR IV PRN ×2 (11:12→20:58)
[2020-10-19] MEDS: LACTOBACILLUS/ACIDOPHILUS TAB PO SCH ×2 (11:27→20:44)
[2020-10-19] MEDS ORDERED: POTASSIUM 25 MEQ EFFERV TAB PO ONE (18:00)
--- NOTE | 2020-10-19 18:10 | P.PN ---
Subjective Date of Service: 10/19/20 Chief Complaint: Bilateral pyelonephritis Subjective: Improving (feeling better, tolerating diet, reported 1 episode of loose stool this morning, pain improved, but requiring pain medication) Review of Systems 10-point ROS is otherwise unremarkable Physical Examination - Vital Signs Temperature: 99.5 F Blood Pressure: 140/74 Pulse: 107 Respirations: 18 Pulse Ox (%): 96 - Physical Exam General: Alert, In no apparent distress HEENT: Sclerae nonicteric Respiratory: Other (nonlabored on RA) Cardiovascular: No edema, Regular rate/rhythm Gastrointestinal: Soft and benign Musculoskeletal: Other (b/l CVA tenderness) Integumentary: No rashes - Studies Microbiology Data (last 24 hrs): 10/17/20 17:12 Clean Catch Urine [place] Count - Final BETWEEN 10,000 & 100,000 CFU/ML 10/17/20 17:12 Clean Catch Urine - Final Escherichia Coli Esbl Assessment & Plan Physician Review Additional Text: Bilateral pyelonephritis, bacteremia, ESBL ecoli Colitis Diabetes mellitus type 2 with hyperglycemia Hypertension Plan Bilateral pyelonephritis with bacteremia: continue IVF, continue Meropenem - review of Ur culture 1 month ago with ESBL, did not receive meropenem repeat culture growing ESBL e coli, continue meropenem dsicussed with ID, will need at least 4 weeks of IV antibiotics will hold off on PICC given bacteremia Diabetes mellitus type 2 with hyperglycemia: A.c. HS Accu-Cheks, sliding scale insulin therapy. continue scheduled NPH Hypertension: not on home meds, low-nl BP for now, continue to monitor Dispo: hospitalization > 2 days, will likely need 4 weeks of IV Abx Time Spent Managing Pts Care (In Minutes): 35
[2020-10-20] MEDS: ACETAMINOPHEN 500 MG TAB PO PRN ×4 (03:52→22:51)
[2020-10-20] MEDS: MORPHINE 2 MG/ML SYR IV PRN (03:53)
[2020-10-20 04:07] LABS: Absolute Lymphocytes (CBC) 0.8 K/uL (0.7-4.9); Basophils % 0.2 % (0-1.3); Hematocrit 26.6 % (36.0-45.0); Lymphocytes % 11.2 % (15.3-44.8); MPV 9.9 fL (7.6-11.3); RBC Red Blood Cell Count 3.33 M/uL (3.86-4.86)
[2020-10-20 04:19] LABS: BUN Blood Urea Nitrogen 5 mg/dL (7-18); Bicarbonate 25 mmol/L (21-32); Glucose Level 157 mg/dL (74-106); Magnesium 1.7 mg/dL (1.8-2.4); Potassium 3.4 mmol/L (3.5-5.1); Sodium Level 135 mmol/L (136-145)
[2020-10-20] MEDS: NA CHLORIDE 0.9% 1,000 ML IV SCH ×5 (06:26→22:56)
[2020-10-20] MEDS ORDERED: MAGNESIUM SULFATE 1 gm IVPB 1 GM/100 ML BAG IV ONE (07:04)
[2020-10-20] MEDS: INSULIN -REGULAR HUMAN 50 UNIT/0.5 ML ML SQ SCH ×4 (07:30→21:27)
[2020-10-20] MEDS: NPH (HUMAN) 100 UNITS/ML INSULIN SQ SCH ×2 (08:00→16:38)
[2020-10-20] MEDS ORDERED: POTASSIUM 25 MEQ EFFERV TAB PO ONE (08:00)
[2020-10-20] MEDS: Meropenem 1,000 MG in NA CHLORIDE 0.9% 100 ML IV SCH ×4 (08:33→16:36)
[2020-10-20] MEDS: ENOXAPARIN 40 MG/0.4 ML SQ SCH (08:35)
[2020-10-20] MEDS: LACTOBACILLUS/ACIDOPHILUS TAB PO SCH ×2 (08:35→21:26)
[2020-10-20] MEDS: HYDROMORPHONE HCL 1 MG/ML INJ IV PRN ×2 (16:35→21:27)
--- NOTE | 2020-10-20 22:56 | P.PN ---
Subjective Date of Service: 10/20/20 Chief Complaint: Bilateral pyelonephritis Subjective: Improving (pain improving, appetite improving, still with low grade fevers, occasional nausea, +back pain. diarrhea improved) Review of Systems 10-point ROS is otherwise unremarkable Physical Examination - Vital Signs Temperature: 101.2 F Blood Pressure: 134/75 Pulse: 91 Respirations: 18 Pulse Ox (%): 91 - Physical Exam General: Alert, In no apparent distress, Oriented x3 HEENT: Sclerae nonicteric Respiratory: Clear to auscultation bilaterally Cardiovascular: No edema, Regular rate/rhythm Gastrointestinal: Soft and benign, No tenderness Musculoskeletal: Tenderness (b/l CVA tenderness) Integumentary: No rashes Neurological: Normal speech, Normal affect - Studies Microbiology Data (last 24 hrs): 10/17/20 18:50 Blood - Blood Aerobic Blood Culture - Final Escherichia Coli Esbl 10/17/20 18:50 Blood - Blood Blood Culture Gram Stain - Final 10/17/20 18:50 Blood - Blood Anaerobic Blood Culture - Final Escherichia Coli Esbl 10/17/20 18:50 Blood - Blood Gram Stain - Final 10/17/20 19:00 Blood - Blood Aerobic Blood Culture - Final Escherichia Coli Esbl 10/17/20 19:00 Blood - Blood Blood Culture Gram Stain - Final 10/17/20 19:00 Blood - Blood Anaerobic Blood Culture - Final Escherichia Coli Esbl 10/17/20 19:00 Blood - Blood Gram Stain - Final Assessment & Plan Physician Review Additional Text: Bilateral pyelonephritis, bacteremia, ESBL ecoli Colitis Diabetes mellitus type 2 with hyperglycemia Hypertension Plan Bilateral pyelonephritis with bacteremia: continue IVF, continue Meropenem - review of Ur culture 1 month ago with ESBL, did not receive meropenem repeat culture growing ESBL e coli, continue meropenem discussed with ID, will need at least 4 weeks of IV antibiotics, can use meropenem or ertapenem repeat blood cx (10/19): no growth so far discussed with Dr. Schmitz - will meet with patient - possible to follow patient once discharged advance diet, reduce IVF Diabetes mellitus type 2 with hyperglycemia: A.c. HS Accu-Cheks, sliding scale insulin therapy. continue scheduled NPH Hypertension: not on home meds, low-nl BP for now, continue to monitor Dispo: hospitalization > 2 days, will need 4 weeks of IV Abx for ESBL Time Spent Managing Pts Care (In Minutes): 35
[2020-10-20] MEDS ORDERED: NA CHLORIDE 0.9% 500 ML IV ONE (23:15)
[2020-10-21] MEDS: Meropenem 1,000 MG in NA CHLORIDE 0.9% 100 ML IV SCH ×3 (00:41→16:45)
[2020-10-21 04:41] LABS: Absolute Lymphocytes (CBC) 0.8 K/uL (0.7-4.9); Basophils % 0.3 % (0-1.3); Hematocrit 23.3 % (36.0-45.0); Lymphocytes % 11.8 % (15.3-44.8); MPV 10.2 fL (7.6-11.3)
[2020-10-21 04:55] LABS: BUN Blood Urea Nitrogen 4 mg/dL (7-18); Bicarbonate 29 mmol/L (21-32); Glucose Level 190 mg/dL (74-106); Magnesium 2.1 mg/dL (1.8-2.4); Potassium 3.2 mmol/L (3.5-5.1); Sodium Level 139 mmol/L (136-145)
[2020-10-21] MEDS ORDERED: POTASSIUM 25 MEQ EFFERV TAB PO ONE (05:21)
[2020-10-21] MEDS: MORPHINE 2 MG/ML SYR IV PRN (05:55)
[2020-10-21] MEDS: ONDANSETRON 4 MG/2 ML VIAL IV PRN (07:07)
[2020-10-21] MEDS ORDERED: HYDROMORPHONE HCL 0.5 MG/0.5 ML INJ IV PRN (07:22)
[2020-10-21] MEDS ORDERED: HYDROCODONE/APAP 5/325 MG TAB PO PRN (07:22)
[2020-10-21 07:47] LABS: Hematocrit 23.2 % (36.0-45.0)
[2020-10-21 07:50] LABS: RBC Red Blood Cell Count 2.99 M/uL (3.86-4.86)
[2020-10-21 08:05] LABS: ALT/SGPT 15 U/L (12-78); AST/SGOT 17 U/L (15-37); Albumin 1.7 g/dL (3.4-5.0); Alkaline Phosphatase 168 U/L (45-117); Bilirubin Direct < 0.1 mg/dL (0-0.2); Bilirubin Total 0.3 mg/dL (0.2-1.0); Protein, Total 6.8 g/dL (6.4-8.2)
[2020-10-21] MEDS: ENOXAPARIN 40 MG/0.4 ML SQ SCH (08:23)
[2020-10-21 08:29] LABS: Ferritin 81.4 ng/mL (8-388)
--- NOTE | 2020-10-21 08:52 | RAD REPORT ---
EXAM DESCRIPTION: RAD - Chest Single View - 10/21/2020 7:14 am CLINICAL HISTORY: picc placement COMPARISON: October 21 TECHNIQUE: AP portable chest image was obtained 10/21/2020 7:14 am . FINDINGS: Lung volumes are low which accentuates central vasculature and lung markings. No new perip heral mass or consolidation. Heart and vasculature are normal. No measurable pleural effusion and no pneumothorax. No acute bony abnormality seen. Right-sided PICC line is in place with the tip repositi oned to the mid SVC. IMPRESSION: Right-sided PICC line has been repositioned. Tip is in the mid SVC.
--- NOTE | 2020-10-21 09:25 | RAD REPORT ---
EXAM DESCRIPTION: CT - Abdomen Pelvis W Contrast - 10/21/2020 8:47 am CLINICAL HISTORY: abdominal pain, pyelo, worsening anemia COMPARISON: Abdomen Pelvis W Contrast dated 10/17/2020 TECHNIQUE: Biphasic, helical CT imaging of the abdomen and pelvis was performed following 100 ml non -ionic IV contrast. No oral contrast administered. All CT scans are performed using dose optimization technique as appropriate and may include automated exposure control or mA/KV adjustment according to patient size. FINDINGS: No suspicious findings in the lung bases. The liver, spleen, and pancreas show no suspicious findings. Gallbladder and biliary tree are also wi thout suspicious finding. Pyelonephritis findings in the upper pole of the left kidney for still present. A 12 millimeter low-d ensity focus is present. The pronounced right-sided pyelonephritis is again noted involving the entir ety of the kidney. The kidney is enlarged and edematous. Patient has developed numerous low-density a reas within the renal parenchyma largest 3 x 1 centimeter. Perinephric stranding is present. No extra renal abscess or abnormal fluid collection. Slight thickening and enhancement of the urinary bladder wall noted. This is accentuated by bladder contraction. A cystitis component cannot be excluded. No b ladder wall mass. No adrenal abnormalities. No acute bowel finding. Reactive free fluid is present in the peritoneal cavity. No free air or pneu matosis. No hernia, mass or bulky lymphadenopathy. No suspicious bony findings. IMPRESSION: Multiple low-density areas have developed in the right kidney and in the upper pole of t he left kidney. Extensive right-side and moderately extensive left-sided pyelonephritis again noted. The new multiple, low-density areas of the kidneys are most likely intraparenchymal abscesses.
[2020-10-21] MEDS: ACETAMINOPHEN 500 MG TAB PO PRN ×2 (09:30→22:16)
[2020-10-21] MEDS: NPH (HUMAN) 100 UNITS/ML INSULIN SQ SCH ×2 (09:31→16:46)
[2020-10-21] MEDS: LACTOBACILLUS/ACIDOPHILUS TAB PO SCH ×2 (09:31→22:14)
[2020-10-21] MEDS: INSULIN -REGULAR HUMAN 50 UNIT/0.5 ML ML SQ SCH ×4 (09:31→22:14)
[2020-10-21] MEDS: NA CHLORIDE 0.9% 1,000 ML IV SCH (09:32)
--- NOTE | 2020-10-21 10:44 | P.CNS ---
Date of Consult: 10/21/20 Reason for Consult: outpatient follow up Requesting Physician: Marcial Torrez Primary Care Provider: Nadir Chief Complaint: Bilateral pyelonephritis History of Present Illness: Patient is an unfortunate young lady. She has a history of dm2, poorly controlled due to lack of insurance. Recent covid infection. The patient was recently admitted for pyleonephritis. The patient was found to have a drug resistant ecoli. she will need out patient antibiotics. 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 moist/pink, EOMI, Sclerae nonicteric Neck: Supple, 2+ carotid pulse no bruit, No LAD, Without JVD or thyroid abnormality Respiratory: Clear to auscultation bilaterally, Normal air movement Cardiovascular: Regular rate/rhythm, Normal S1 S2 Gastrointestinal: Normal bowel sounds, No tenderness Musculoskeletal: No tenderness Integumentary: No rashes Neurological: Normal gait, Normal speech, Normal tone, Normal affect Lymphatics: No axilla or inguinal lymphadenopathy - Problems (1) Acute pyelonephritis Current Visit: No Status: Acute Plan: We can sign for the antibiotics. Have discussed the patient with Dr. Quyen Luke(hospitalist). She may be transferred as she seems to be developing abscess (2) DM type 2 (diabetes mellitus, type 2) Current Visit: No Status: Acute Plan: have discussed diet with the patient She most likely will be discharged on insulin and metformin. Will see her as an outpatient. may refer her to the [facility] as an [facility]. Qualifiers: Diabetes mellitus longterm insulin use: with longterm use Diabetes mellitus complication status: without complication Qualified Code(s): E11.9 - Type 2 diabetes mellitus without complications; Z79.4 - care home (current) use of insulin Physician Review: Patient Assessed, Agree with Above Assessment and Plan Critical Care: No Time Spent Managing Pts care (In Minutes): 30
--- NOTE | 2020-10-21 11:58 | P.CNS ---
Date of Consult: 10/21/20 Reason for Consult: febrile pyelo suspected abscess Requesting Physician: Marcial Torrez Primary Care Provider: Nadir Chief Complaint: Bilateral pyelonephritis History of Present Illness: 39yo diabetic woman with ESBL Ecoli septic pyelonephritis on Meropenem admitted days ago with apparent clinical improvement, though <24 hours afebrile, again began to show signs of severe sepsis. Repeat CT imaging was obtained, and I was asked to review for the potential for either surgical or interventional radiologic intervention given abscess noted on the read. I reviewed the imaging in detail and while there are multiple patchy areas concerning for abscess in the setting of a delayed nephrogram indicating poor perfusion, I am not certain any area is sufficiently discretely drainable to benefit from percutaneous drainage, as the largest area is ~2cm at best. No sign of emphysematous pyelonephritis or obstruction at this time, but interval development of such is possible. As such, I discussed this case with Dr. Torrez, reviewed articles relevant, and reviewed the imaging for over 45 minutes before making the following recommendations: 1) Consider placing a urethral Stark catheter to maximize drainage of the entire urinary tract 2) No role for ureteral stenting in the absence of obstruction/hydronephrosis, of which there is none. 3) I am uncertain if IR would find any area sufficient to discretely drain as there are multiple patchy areas and the largest is <2cm. Typically abscesses <3cm are amenable to antimicrobial therapy alone; however, if she appears to clinically deteriorate, either percutaneous drainage or nephrectomy may be the next most appropriate steps. As such, I recommended radiology consultation to make the images available to an interventional radiologist to review to determine the potential for drainability of any component of this process given the aggressive nature of the organism found. I am not certain it would be possible to catar[place] the skilled staff required to assist me to perform a laparoscopic nephrectomy safely at [facility] on the weekend, if that were to become necessary. Likely, transfer would be required [place] [facility] 4) Since Gentamicin was just added to the Meropenem and likely will aid in penetration of any abscess tissue, as long as she remains clinically stable, would monitor with serial renal U/S to assess for resolution, failure of progression to a larger and more discrete abscess which might be drainable, or development of emphysematous pyelonephritis. 5) Progression of sepsis with AMS, thrombocytopenia, or JOHN in addition to her underlying diabetic comorbidity would indicate the need for intervention and likely transfer. 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
[2020-10-21] MEDS: Gentamicin Inj 80 MG in NA CHLORIDE 0.9% 100 ML IVPB SCH ×2 (12:33→22:13)
--- NOTE | 2020-10-21 14:24 | RAD REPORT ---
EXAM DESCRIPTION: RAD - Chest Single View - 10/21/2020 1:53 am CLINICAL HISTORY: S/P PICC Insertion COMPARISON: None. FINDINGS: Single frontal view of the chest. Tubes and lines: Right arm PICC with tip in the high right atrium. Leads overlie the chest. Cardiomediastinal silhouette: Heart is not enlarged. Lungs: Low lung volumes. Patchy perihilar opacities. No pneumothorax. Bones: No acute osseous abnormalities. Upper abdomen: No acute abnormalities. IMPRESSION: 1. Right arm PICC with tip in the high right atrium. 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 The interpreting radiologist is fully responsible for the content of the report.
[2020-10-21] MEDS ORDERED: POTASSIUM CL SA 10 MEQ TAB PO ONE (16:00)
--- NOTE | 2020-10-21 20:03 | P.PN ---
Subjective Date of Service: 10/21/20 Primary Care Provider: Nadir Chief Complaint: Bilateral pyelonephritis Subjective: Other (continues with recurrent fever/abdominal pain / nausea. Was feeling well last night, but worse again this morning. Feels better after tyelonol) Review of Systems 10-point ROS is otherwise unremarkable Physical Examination - Vital Signs Temperature: 100.9 F Blood Pressure: 133/71 Pulse: 96 Respirations: 20 Pulse Ox (%): 90 - Physical Exam General: Alert, Moderate distress HEENT: Sclerae nonicteric Respiratory: Clear to auscultation bilaterally, Normal air movement Cardiovascular: No edema, Regular rate/rhythm Gastrointestinal: Soft and benign, Tenderness (R abdomen, R flank, +R CVA tenderness) Integumentary: No rashes Neurological: Normal speech, Normal affect Assessment & Plan Physician Review Additional Text: Bilateral pyelonephritis, bacteremia, ESBL ecoli Colitis Anemia Diabetes mellitus type 2 with hyperglycemia Hypertension Plan Bilateral pyelonephritis with bacteremia: continue IVF, continue Meropenem - review of Ur culture 1 month ago with ESBL, did not receive meropenem repeat culture growing ESBL e coli, continue meropenem, will need at least 4 weeks of IV antibiotics, can use meropenem or ertapenem CT Abd/pelvis repeated this morning due to patient's distress, developed multiple small abscesses in her R kidney Discussed with radiology - very small and multiple, not amenable to drainage Discussed with urology, Dr. Durand - concern these have potential for worsening, advised to further discuss with radiology, possibly transferring pa sudhant if she clinically worsens will place greenwood catheter to ensure adequate drainage of urinary tract. monitor renal abscess with renal U/S in AM add Gentamicin to meropenem for better penetration monitor closely, if patient worsens, will likely need stat CT abd for re-eval and possibly transfer to tertiary center repeat blood cx (10/19): gram + cocci in clusters in anaerobic bottles - suspect contaminant, ID agreed. tolerated diet, dc IVF Anemia labs consistent with anemia of chronic disease. baseline ~9-10 Hgb down to 7.8 this morning, BUN down to 4 as well review of EMR- pt has had significant amount of IVF most of anemia likely secondary to overhydration dc IVF CT abd/pelvis without signs of bleeding/hematoma. Diabetes mellitus type 2 with hyperglycemia: A.c. HS Accu-Cheks, sliding scale insulin therapy. continue scheduled NPH Hypertension: not on home meds, low-nl BP for now, continue to monitor Dispo: hospitalization > 2 days, will need 4 weeks of IV Abx for ESBL Time Spent Managing Pts Care (In Minutes): 60
[2020-10-21] MEDS ORDERED: LORazepam 2 MG/ML VIAL IV ONE (22:39)
[2020-10-22] MEDS: Meropenem 1,000 MG in NA CHLORIDE 0.9% 100 ML IV SCH ×3 (00:17→18:00)
[2020-10-22] MEDS: KCL 20 MEQ/100 mL IVPB 20 MEQ/100 ML BAG IV SCH ×2 (00:32→02:43)
[2020-10-22 00:56] LABS: Urine Appearance CLOUDY; Urine Bilirubin NEGATIVE (NEG); Urine Blood NEGATIVE (NEG); Urine Color YELLOW; Urine Glucose NEGATIVE (NEG); Urine Protein NEGATIVE (NEG); Urine Specific Gravity <=1.005 (1.005-1.030); Urine Urobilinogen 0.2 mg/dL (0.2-1.0); Urine pH 7.5 (5.0-7.0)
[2020-10-22 01:18] LABS: Urine Microscopic Reflex ORDER UMIC
[2020-10-22 01:26] LABS: Urine Bacteria >50 /HPF (<20); Urine Mucus 1+ /HPF (NONE SEEN); Urine RBC <5 /HPF (NONE SEEN)
[2020-10-22] MEDS: HYDROCODONE/APAP 5/325 MG TAB PO PRN (05:13)
[2020-10-22] MEDS: Gentamicin Inj 80 MG in NA CHLORIDE 0.9% 100 ML IVPB SCH ×2 (05:13→12:40)
[2020-10-22 06:32] LABS: Absolute Lymphocytes (CBC) 0.9 K/uL (0.7-4.9); Basophils % 0.3 % (0-1.3); Hematocrit 23.4 % (36.0-45.0); Lymphocytes % 14.1 % (15.3-44.8); MPV 10.1 fL (7.6-11.3); RBC Red Blood Cell Count 2.91 M/uL (3.86-4.86)
[2020-10-22 06:44] LABS: BUN Blood Urea Nitrogen 3 mg/dL (7-18); Bicarbonate 31 mmol/L (21-32); Glucose Level 130 mg/dL (74-106); Magnesium 2.2 mg/dL (1.8-2.4); Phosphorus 2.2 mg/dL (2.5-4.9); Potassium 3.8 mmol/L (3.5-5.1); Sodium Level 140 mmol/L (136-145)
[2020-10-22] MEDS: INSULIN -REGULAR HUMAN 50 UNIT/0.5 ML ML SQ SCH ×4 (07:30→21:00)
[2020-10-22] MEDS: LACTOBACILLUS/ACIDOPHILUS TAB PO SCH ×2 (08:09→21:38)
[2020-10-22] MEDS: ENOXAPARIN 40 MG/0.4 ML SQ SCH (08:09)
[2020-10-22] MEDS: NPH (HUMAN) 100 UNITS/ML INSULIN SQ SCH ×2 (08:10→18:01)
[2020-10-22 11:57] LABS: Gentamicin Level, Trough 0.7 ug/mL (0-2.0); Potassium 3.6 mmol/L (3.5-5.1)
--- NOTE | 2020-10-22 14:38 | RAD REPORT ---
EXAM DESCRIPTION: US - Renal Ultrasound-Complete - 10/22/2020 1:06 pm CLINICAL HISTORY: evaluate renal abscesses Flank pain COMPARISON: No comparisons FINDINGS: Both kidneys demonstrate heterogenous parenchymal appearance, more notable on the right. The right kidney measures 13.1 x 8.2 x 6.2 cm. The right kidney overall appears enlarged. No hydronep hrosis. The left kidney measures 12.2 x 6.2 x 5.4 cm. No hydronephrosis. The urinary bladder is incompletely distended without gross abnormality seen. IMPRESSION: Heterogenous appearance to the renal parenchyma bilaterally, more notable on the right, probably indicates underlying infection. No hydronephrosis or solid renal mass.
--- NOTE | 2020-10-22 17:59 | P.PN ---
Subjective Date of Service: 10/22/20 Primary Care Provider: Nadir Chief Complaint: Bilateral pyelonephritis Subjective: Improving (feeling better since yesterday evening. denies pain/nausea/diarrhea greenwood placed yesterday to ensure adequate drainage) Review of Systems 10-point ROS is otherwise unremarkable Physical Examination - Vital Signs Temperature: 97.8 F Blood Pressure: 112/60 Pulse: 101 Respirations: 18 Pulse Ox (%): 98 - Physical Exam General: Alert, In no apparent distress HEENT: Sclerae nonicteric Respiratory: Clear to auscultation bilaterally Cardiovascular: No edema, Regular rate/rhythm Gastrointestinal: Soft and benign, No tenderness Musculoskeletal: No tenderness Integumentary: No rashes Neurological: Normal speech, Normal affect Assessment & Plan Physician Review Additional Text: Bilateral pyelonephritis, bacteremia, ESBL ecoli Colitis Anemia Diabetes mellitus type 2 with hyperglycemia Hypertension Plan Bilateral pyelonephritis with bacteremia: dc'd IVF, continue meropenem, added gentamicin yesterday due to abscess finding on CT will need at least 4 weeks of IV abx - meropenem or ertapenem is fine per ID Abscesses seen on CT - renal U/S today do not clearly define them, does note heterogenous echotexture of kidney greenwood placed 10/21 to ensure adequate drainage of urinary tract monitor closely, if patient worsens, will likely need stat CT abd for re-eval and possibly transfer to tertiary center repeat blood cx (10/19): gram + cocci in clusters in anaerobic bottles - suspect contaminant, ID agreed. Anemia labs consistent with anemia of chronic disease. baseline ~9-10 Hgb down to <8, BUN significantly decreased as well - likely due to overhydration - received significant amount of fluid CT abd/pelvis without signs of bleeding/hematoma. Diabetes mellitus type 2 with hyperglycemia: A.c. HS Accu-Cheks, sliding scale insulin therapy. continue scheduled NPH Hypertension: not on home meds, low-nl BP for now, continue to monitor Dispo: hospitalization > 2 days, will need 4 weeks of IV Abx for ESBL Time Spent Managing Pts Care (In Minutes): 35
[2020-10-22] MEDS: ACETAMINOPHEN 500 MG TAB PO PRN (18:00)
[2020-10-22] MEDS: Gentamicin Inj 120 MG in NA CHLORIDE 0.9% 100 ML IVPB SCH (21:37)
[2020-10-23] MEDS: Meropenem 1,000 MG in NA CHLORIDE 0.9% 100 ML IV SCH ×3 (01:10→17:26)
[2020-10-23] MEDS: Gentamicin Inj 120 MG in NA CHLORIDE 0.9% 100 ML IVPB SCH ×3 (04:00→20:00)
[2020-10-23] MEDS: ACETAMINOPHEN 500 MG TAB PO PRN ×2 (04:48→13:53)
[2020-10-23 05:25] LABS: BUN Blood Urea Nitrogen 5 mg/dL (7-18); Bicarbonate 31 mmol/L (21-32); Glucose Level 196 mg/dL (74-106); Potassium 3.5 mmol/L (3.5-5.1); Sodium Level 139 mmol/L (136-145)
[2020-10-23 05:35] LABS: Basophils % 0.3 % (0-1.3); Hematocrit 23.7 % (36.0-45.0); Lymphocytes % 12.7 % (15.3-44.8); MPV 9.7 fL (7.6-11.3); RBC Red Blood Cell Count 2.94 M/uL (3.86-4.86)
[2020-10-23] MEDS: INSULIN -REGULAR HUMAN 50 UNIT/0.5 ML ML SQ SCH ×4 (07:30→21:21)
[2020-10-23] MEDS: LACTOBACILLUS/ACIDOPHILUS TAB PO SCH ×2 (08:40→20:34)
[2020-10-23] MEDS: ENOXAPARIN 40 MG/0.4 ML SQ SCH (08:40)
[2020-10-23] MEDS: NPH (HUMAN) 100 UNITS/ML INSULIN SQ SCH ×2 (08:40→17:25)
[2020-10-23] MEDS ORDERED: POTASSIUM CL SA 10 MEQ TAB PO ONE (09:00)
--- NOTE | 2020-10-23 14:46 | PN ---
Subjective: The patient is sitting up in bed. Denies any headache, nausea, vomiting, chest pain, ab dominal pain, constipation, or diarrhea. Objective: Vital Signs: Temperature 98, pulse 95, respirations 16, blood pressure 125/74. Lungs: Clear to auscultation. Heart: S1, S2. Regular. Abdomen: Soft. Bowel sounds present. Extremities: No edema. Laboratory Data: Shows WBC 7.9, hemoglobin 7.6, platelets are 346. Chemistry shows sodium 139, pota ssium 3.5, chloride 104, bicarb 31, BUN 5, creatinine 0.5, glucose 196. Micro data showing E coli ES BL in the blood and in the urine. Assessment And Plan: Bacteremia secondary to Escherichia coli ESBL urinary tract infection secondary to Escherichia coli ESBL pyelonephritis bilateral. Continue 4 weeks of antibiotic and continue supp ortive care. Prognosis guarded. The patient is improving, but continued to have low-grade fevers. Diabetes mellitus, anemia of chronic disease. Prognosis guarded. Continue supportive care. NF/MODL Voice ID: [id number] Report ID: [id number]
--- NOTE | 2020-10-23 18:06 | RAD REPORT ---
EXAM DESCRIPTION: US - Renal Ultrasound-Complete - 10/23/2020 5:08 pm CLINICAL HISTORY: eval renal abscesses Flank pain COMPARISON: Renal Ultrasound-Complete dated 10/22/2020; Abdomen Pelvis W Contrast dated 10/21/2020 FINDINGS: The kidneys continue to demonstrate a mildly heterogenous parenchymal appearance. No perin ephric or clearly defined renal intraparenchymal abscess is observed. The right kidney measures 12.0 x 6.5 x 6.5 cm. No hydronephrosis seen. The left kidney measures 11.5 x 6.2 x 5.8 cm. No hydronephrosis seen. The urinary bladder is incompletely distended without gross abnormality seen. IMPRESSION: Heterogenous parenchymal appearance to the kidneys is again seen. He was appears mildly improved since preceding day's study. No discrete perinephric or intraparenchymal abscesses detected by ultrasound.
--- NOTE | 2020-10-23 18:27 | P.PN ---
Subjective Date of Service: 10/23/20 Primary Care Provider: Nadir Chief Complaint: Bilateral pyelonephritis Subjective: Improving (Feeling better, pain is better, however still occasionally becomes febrile) Review of Systems 10-point ROS is otherwise unremarkable Physical Examination - Vital Signs Temperature: 98.0 F Blood Pressure: 130/76 Pulse: 93 Respirations: 16 Pulse Ox (%): 98 - Physical Exam General: Alert, In no apparent distress, Oriented x3 HEENT: Sclerae nonicteric Respiratory: Clear to auscultation bilaterally Cardiovascular: Regular rate/rhythm Gastrointestinal: Soft and benign, No tenderness Integumentary: No significant lesion Neurological: Normal speech, Normal affect Assessment & Plan Physician Review Additional Text: Bilateral pyelonephritis, bacteremia, ESBL ecoli Colitis Anemia Diabetes mellitus type 2 with hyperglycemia Hypertension Plan Bilateral pyelonephritis with bacteremia: continue meropenem, added gentamicin 10/21 due to abscess finding on CT will need at least 4 weeks of IV abx - meropenem or ertapenem is fine per ID Abscesses seen on CT - renal U/S 10/22 do not clearly define them, does note heterogenous echotexture of kidney. repeat U/S today with continued improvement greenwood placed 10/21 to ensure adequate drainage of urinary tract monitor closely, if patient worsens, will likely need stat CT abd for re-eval and possibly transfer to tertiary center repeat blood cx (10/19): gram + cocci in clusters in anaerobic bottles - suspect contaminant, ID agreed. repeat UA - no growth Anemia labs consistent with anemia of chronic disease. baseline ~9-10 Hgb down to <8, BUN significantly decreased as well - likely due to overhydration - received significant amount of fluid CT abd/pelvis without signs of bleeding/hematoma. Diabetes mellitus type 2 with hyperglycemia: A.c. HS Accu-Cheks, sliding scale insulin therapy. continue scheduled NPH Hypertension: not on home meds, low-nl BP for now, continue to monitor Dispo: anticipate dc home in 24-48hrs, needs afebrile x 24hrs, will need 4 weeks of IV Abx for ESBL Time Spent Managing Pts Care (In Minutes): 35
[2020-10-23] MEDS: HYDROCODONE/APAP 5/325 MG TAB PO PRN (20:37)
[2020-10-24] MEDS: Meropenem 1,000 MG in NA CHLORIDE 0.9% 100 ML IV SCH ×3 (00:37→17:22)
[2020-10-24] MEDS: ACETAMINOPHEN 500 MG TAB PO PRN ×3 (00:38→15:39)
[2020-10-24] MEDS: Gentamicin Inj 120 MG in NA CHLORIDE 0.9% 100 ML IVPB SCH ×3 (04:16→21:30)
[2020-10-24 04:55] LABS: Basophils % 0.2 % (0-1.3); Hematocrit 22.9 % (36.0-45.0); Lymphocytes % 15.4 % (15.3-44.8); MPV 9.3 fL (7.6-11.3); RBC Red Blood Cell Count 2.86 M/uL (3.86-4.86)
[2020-10-24 05:04] LABS: BUN Blood Urea Nitrogen 7 mg/dL (7-18); Bicarbonate 31 mmol/L (21-32); Glucose Level 148 mg/dL (74-106); Magnesium 2.1 mg/dL (1.8-2.4); Potassium 3.4 mmol/L (3.5-5.1); Sodium Level 139 mmol/L (136-145)
[2020-10-24] MEDS ORDERED: POTASSIUM CL SA 10 MEQ TAB PO ONE (06:18)
[2020-10-24] MEDS: INSULIN -REGULAR HUMAN 50 UNIT/0.5 ML ML SQ SCH ×4 (07:30→21:29)
[2020-10-24] MEDS: LACTOBACILLUS/ACIDOPHILUS TAB PO SCH ×2 (07:57→21:30)
[2020-10-24] MEDS: NPH (HUMAN) 100 UNITS/ML INSULIN SQ SCH ×2 (07:57→17:22)
[2020-10-24] MEDS: ENOXAPARIN 40 MG/0.4 ML SQ SCH (07:57)
--- NOTE | 2020-10-24 16:34 | P.CNS ---
Date of Consult: 10/24/20 see consultation note dated 10/21/20 11:45AM - completed by me and signed by Dr. Torrez, which is my original consultation opinion on the care and management of this patient as discussed with Dr. Torrez on 10/21/20. 39yo woman with DM2 and ESBL Ecoli pyelonephritis with sepsis on Meropenem and Gentamicin with question of right renal abscess. My impression at that time was that there was an area of infarct with perhaps an adjacent area of abscess that was <2cm in diameter and unlikely to be drainable by IR. Subsequent recommended renal U/S evaluation confirmed my impression by not being able to demonstrate a true collection and also improvement day over day. Patient seen and examined. She explains she now feels better, though still intermittently feverish. Her flank pain has significantly decreased. She still has a Stark catheter in place but is ambulating well. Exam: afebrile x >24 hours now and VSS AAO, NAD No dyspnea or use of accessory muscles to breathe Abd soft, NT, ND, no masses No SP tenderness Mild Right CVA tenderness No Homman's sign Stable renal function and persistent anemia. A/Recs: continued clinical improvement and decrease in the fever curve day over day. Would continue antimicrobial therapy as recommended by ID. Repeat U/S in 3-5 days as long as continued improvement clinically. CT without then with IV contrast of Abdomen if clinical deterioration, recurrent fever >/=101, again noted, though may as well be COVID related, would need to r/o development of perinephric abscess or emphysematous pyelonephritis.
--- NOTE | 2020-10-24 17:06 | P.PN ---
Subjective Date of Service: 10/24/20 Primary Care Provider: Nadir Chief Complaint: Bilateral pyelonephritis Patient has no new complaint. She had fever last night. She denies any abdominal pain or back pain. Physical Examination - Vital Signs Temperature: 100.4 F Blood Pressure: 92/57 Pulse: 87 Respirations: 17 Pulse Ox (%): 96 - Physical Exam General: Alert, In no apparent distress, Oriented x3 Respiratory: Clear to auscultation bilaterally, Normal air movement Cardiovascular: No edema, Regular rate/rhythm, Normal S1 S2 Gastrointestinal: Normal bowel sounds, Soft and benign, Non-distended, No tenderness Integumentary: No rashes Neurological: Normal strength at 5/5 x4 extr Assessment And Plan Physician Review: Patient Assessed, Agree with Above Assessment and Plan Physician Review Additional Text: Bilateral pyelonephritis, bacteremia, ESBL ecoli Colitis Anemia Diabetes mellitus type 2 with hyperglycemia Hypertension Plan Bilateral pyelonephritis with bacteremia: continue meropenem and gentamicin. Renal ultrasound: No renal abscess. Intermittent fever could be related to COVID. Urine culture: E. coli will need at least 4 weeks of IV abx - meropenem or ertapenem is fine per ID Abscesses seen on CT - renal U/S 10/22 do not clearly define them, greenwood placed 10/21 to ensure adequate drainage of urinary tract. Urology input appreciated. monitor closely, if patient worsens, will likely need stat CT abd for re-eval and possibly transfer to tertiary center ID is following Repeat blood cx (10/19): gram + cocci in clusters in anaerobic bottles - suspect contaminant, ID agreed. repeat urine culture - no growth Anemia labs consistent with anemia of chronic disease. baseline ~9-10 CT abd/pelvis without signs of bleeding/hematoma. Hemoglobin is stable at 7. Transfuse p.r.n. for hemoglobin less than 7. Diabetes mellitus type 2 with hyperglycemia: A.c. HS Accu-Cheks, sliding scale insulin therapy. continue scheduled NPH Hypertension: not on home meds, low-nl BP for now, continue to monitor Dispo: Will need 4 weeks of IV Abx for ESBL
[2020-10-25] MEDS: Meropenem 1,000 MG in NA CHLORIDE 0.9% 100 ML IV SCH ×3 (00:59→17:51)
[2020-10-25] MEDS: Gentamicin Inj 120 MG in NA CHLORIDE 0.9% 100 ML IVPB SCH ×3 (04:00→21:26)
[2020-10-25 05:17] LABS: Absolute Lymphocytes (CBC) 0.9 K/uL (0.7-4.9); Basophils % 0.4 % (0-1.3); Hematocrit 23.9 % (36.0-45.0); Lymphocytes % 13.4 % (15.3-44.8); MPV 9.6 fL (7.6-11.3); RBC Red Blood Cell Count 2.97 M/uL (3.86-4.86)
[2020-10-25 05:30] LABS: BUN Blood Urea Nitrogen 7 mg/dL (7-18); Bicarbonate 30 mmol/L (21-32); Glucose Level 191 mg/dL (74-106); Potassium 3.9 mmol/L (3.5-5.1); Sodium Level 137 mmol/L (136-145)
[2020-10-25] MEDS ORDERED: POTASSIUM CL SA 10 MEQ TAB PO ONE (06:06)
[2020-10-25] MEDS: INSULIN -REGULAR HUMAN 50 UNIT/0.5 ML ML SQ SCH ×4 (07:30→21:26)
[2020-10-25] MEDS: NPH (HUMAN) 100 UNITS/ML INSULIN SQ SCH ×2 (09:37→17:50)
[2020-10-25] MEDS: ENOXAPARIN 40 MG/0.4 ML SQ SCH (09:37)
[2020-10-25] MEDS: LACTOBACILLUS/ACIDOPHILUS TAB PO SCH ×2 (09:37→21:26)
--- NOTE | 2020-10-25 16:29 | P.PN ---
Subjective Date of Service: 10/25/20 Primary Care Provider: Nadir Chief Complaint: Bilateral pyelonephritis Patient has no new complaint. She had fever yesterday evening. She denies any abdominal pain or back pain. Physical Examination - Vital Signs Temperature: 97.9 F Blood Pressure: 123/68 Pulse: 82 Respirations: 18 Pulse Ox (%): 97 - Physical Exam General: Alert, In no apparent distress Respiratory: Clear to auscultation bilaterally, Normal air movement Cardiovascular: Regular rate/rhythm, Normal S1 S2 Gastrointestinal: Soft and benign, Non-distended Musculoskeletal: No swelling, No tenderness Integumentary: No rashes Neurological: Other (No focal deficit.) Assessment And Plan Physician Review: Patient Assessed, Agree with Above Assessment and Plan Physician Review Additional Text: Bilateral pyelonephritis, bacteremia, ESBL ecoli Colitis Anemia Diabetes mellitus type 2 with hyperglycemia Hypertension Plan Bilateral pyelonephritis with bacteremia: continue meropenem. Discontinue gentamicin per ID Renal ultrasound: No renal abscess. Intermittent fever could be related to COVID. Urine culture: ESBL E. coli. Will need at least 4 weeks of IV abx - meropenem or ertapenem is fine per ID Abscesses seen on CT - renal U/S 10/22 do not clearly define them, Discontinue Stark catheter. Urology input appreciated. monitor closely, if patient worsens, will likely need stat CT abd for re-eval ID is following Repeat blood cx (10/19): gram + cocci in clusters in anaerobic bottles - suspect contaminant, ID agreed. repeat urine culture - no growth Anemia labs consistent with anemia of chronic disease. baseline ~9-10 CT abd/pelvis without signs of bleeding/hematoma. Hemoglobin is stable at 7. Transfuse p.r.n. for hemoglobin less than 7. Diabetes mellitus type 2 with hyperglycemia: A.c. HS Accu-Cheks, sliding scale insulin therapy. continue scheduled NPH Hypertension: not on home meds, low-nl BP for now, continue to monitor Dispo: Will need 4 weeks of IV Invanz for ESBL
[2020-10-25] MEDS: GLUCERNA SHAKE 237 ML CAN PO SCH (21:27)
[2020-10-26] MEDS: Meropenem 1,000 MG in NA CHLORIDE 0.9% 100 ML IV SCH ×2 (00:24→08:05)
[2020-10-26] MEDS: Gentamicin Inj 120 MG in NA CHLORIDE 0.9% 100 ML IVPB SCH ×2 (04:12→12:00)
[2020-10-26 05:20] LABS: Absolute Lymphocytes (CBC) 1.2 K/uL (0.7-4.9); Basophils % 0.4 % (0-1.3); Hematocrit 24.7 % (36.0-45.0); Lymphocytes % 17.7 % (15.3-44.8); MPV 9.6 fL (7.6-11.3)
[2020-10-26 05:41] LABS: BUN Blood Urea Nitrogen 13 mg/dL (7-18); Bicarbonate 30 mmol/L (21-32); Glucose Level 220 mg/dL (74-106); Potassium 4.5 mmol/L (3.5-5.1); Sodium Level 136 mmol/L (136-145)
[2020-10-26] MEDS: INSULIN -REGULAR HUMAN 50 UNIT/0.5 ML ML SQ SCH ×2 (07:30→12:42)
[2020-10-26] MEDS: LACTOBACILLUS/ACIDOPHILUS TAB PO SCH (08:02)
[2020-10-26] MEDS: ENOXAPARIN 40 MG/0.4 ML SQ SCH (08:02)
[2020-10-26] MEDS: GLUCERNA SHAKE 237 ML CAN PO SCH (08:03)
[2020-10-26] MEDS: NPH (HUMAN) 100 UNITS/ML INSULIN SQ SCH (09:38)
[2020-10-26 10:29] VITALS: O2SAT 96
--- NOTE | 2020-10-26 12:10 | P.DS ---
Admission Date: 10/17/20 Discharge Date: 10/26/20 Primary Care Provider: Nadir Disposition: ROUTINE DISCHARGE Discharge Condition: FAIR Reason for Admission: Bilateral pyelonephritis Consultations: Infectious disease-Dr. Almanzar Urology-Dr Durand - Problems (1) Acute pyelonephritis Status: Acute (2) COVID-19 Status: Acute (3) DM type 2 (diabetes mellitus, type 2) Status: Acute Qualifiers: Diabetes mellitus assistant terminal manager insulin use: with assistant terminal manager use Diabetes mellitus complication status: without complication Qualified Code(s): E11.9 - Type 2 diabetes mellitus without complications; Z79.4 - termination clerk (current) use of insulin (4) E coli bacteremia Status: Acute Brief History of Present Illness: 39-year-old woman with a history of diabetes mellitus presented to the emergency department with a complaint of right flank pain. Patient was hospitalized prior and treated for acute pyelonephritis and discharged. She will return to the emergency department with severe symptoms. CT scan done in the emergency department demonstrated bilateral pyelonephritis, no abscess. She also tested positive for COVID 19. She had significant leukocytosis. Patient was admitted for further management of acute pyelonephritis. Hospital Course: Patient admitted to the medical floor and treated aggressively for the pyelonephritis, initially with IV Rocephin. Her urine culture grew ESBL E. coli. Blood culture also grew E. coli. Antibiotics was changed to IV meropenem. She received a total of 9 days of IV meropenem as inpatient. She continued to experience intermittent fever. Repeat CT abdomen and pelvis demonstrated multiple low-density areas in the renal parenchyma and findings of severe right pyelonephritis, moderate to severe left pyelonephritis. Patient was seen by infectious disease-Dr. Almanzar. Gentamicin was added to IV meropenem in case there is renal abscess. Renal ultrasound did not identify any abscess. Gentamicin was later discontinued. Patient had not had fever over the past 48 hrs. Her symptoms have resolved. She denies any flank pain. She states she feels at baseline. She had no symptoms from the COVID-19. Patient is planned to have a total of 4 weeks of IV meropenem. She is prescribed 3 more weeks of IV Invanz to be given as an outpatient. Her blood sugar readings were high during the hospital stay. Her hemoglobin A1c was 12. Patient was initially on metformin which has been changed to NPH insulin given her high hemoglobin A1c. She is also prescribed vitamins C and D and zinc. Vital Signs/Physical Exam: Temp Pulse Resp BP Pulse Ox 98.7 F 79 16 106/67 96 10/26/20 08:00 10/26/20 08:00 10/26/20 08:00 10/26/20 08:00 10/26/20 08:00 General: Alert, In no apparent distress, Oriented x3 Neck: Supple Respiratory: Clear to auscultation bilaterally, Normal air movement Cardiovascular: No edema, Regular rate/rhythm, Normal S1 S2 Gastrointestinal: Normal bowel sounds, Soft and benign, Non-distended Musculoskeletal: No swelling, No tenderness Integumentary: No rashes Neurological: Normal speech, Normal strength at 5/5 x4 extr Laboratory Data at Discharge: WBC 6.6 K/uL (4.3-10.9) 10/26/20 04:18 Hgb 8.2 g/dL (12.0-15.0) L 10/26/20 04:18 Hct 24.7 % (36.0-45.0) L 10/26/20 04:18 Plt Count 348 K/uL (152-406) 10/26/20 04:18 Sodium 136 mmol/L (136-145) 10/26/20 04:18 Potassium 4.5 mmol/L (3.5-5.1) 10/26/20 04:18 BUN 13 mg/dL (7-18) 10/26/20 04:18 Creatinine 0.55 mg/dL (0.55-1.3) 10/26/20 04:18 Glucose 220 mg/dL (74-106) H 10/26/20 04:18 Phosphorus 2.2 mg/dL (2.5-4.9) L 10/22/20 05:15 Magnesium 2.1 mg/dL (1.8-2.4) 10/24/20 04:35 Total Bilirubin 0.3 mg/dL (0.2-1.0) 10/21/20 07:36 AST 17 U/L (15-37) 10/21/20 07:36 ALT 15 U/L (12-78) 10/21/20 07:36 Alkaline Phosphatase 168 U/L (45-117) H 10/21/20 07:36 Lipase 58 U/L (73-393) L 10/17/20 17:12 Home Medications: Atorvastatin Calcium 20 mg PO BEDTIME 09/11/20 Metformin HCl 1,000 mg PO BID 09/11/20 Alcohol Antiseptic Pads [Alcohol Swabs] 1 each TP TID #100 med..pad 10/26/20 Ascorbate Calcium [Vitamin C] 2,000 mg PO TID #360 tablet 10/26/20 Blood-Glucose Meter [Contour] 1 each MC TID #1 kit 10/26/20 Cholecalciferol (Vitamin D3) [Vitamin D 5,000 Iu Cap] 5,000 unit PO DAILY #30 cap 10/26/20 Ertapenem Na [Invanz] 1 gm IVPB DAILY #19 vial 10/26/20 Insulin NPH Human [Novolin N (Humulin N)*] 15 units SQ BIDWM #10 ml 10/26/20 Syringe with Needle, 1 ml [Easy Touch] 1 each MC TID #60 disp.syrin 10/26/20 Zinc Sulfate [Zinc Sulfate*] 220 mg PO DAILY #30 cap 10/26/20 New Medications: Alcohol Antiseptic Pads [Alcohol Swabs] 1 each TP TID #100 med..pad Blood-Glucose Meter [Contour] 1 each MC TID #1 kit Syringe with Needle, 1 ml [Easy Touch] 1 each MC TID #60 disp.syrin Ertapenem Na [Invanz] 1 gm IVPB DAILY #19 vial Insulin NPH Human [Novolin N (Humulin N)*] 15 units SQ BIDWM #10 ml Ascorbate Calcium [Vitamin C] 2,000 mg PO TID #360 tablet Cholecalciferol (Vitamin D3) [Vitamin D 5,000 Iu Cap] 5,000 unit PO DAILY #30 cap Zinc Sulfate [Zinc Sulfate*] 220 mg PO DAILY #30 cap Diet: ADA Activity: Ad keesha Followup: NONE,NONE [Primary Care Provider] - Time spent managing pt's care (in minutes): 42
[2020-10-26 13:12] VITALS: BP 108/55; TEMP 97.8
== END 2020-10-26 13:46 | disposition home or self-care (01) | DRG 871 ==
LOC: ER 16:05 → ERHOLD 21:46 → 4TH 22:46
PROVIDERS: ADMIT Hospitalist; ATTEND Internal Medicine
PROC: 02HV33Z Insertion of Infusion Device into Superior Vena Cava, Percutaneous Approach (ICD-10-PCS; principal; 2020-10-21)
DX: A41.9 Sepsis, unspecified organism (principal); U07.1 COVID-19; N10 Acute pyelonephritis; Z16.12 Extended spectrum beta lactamase (ESBL) resistance; N17.9 Acute kidney failure, unspecified; R65.20 Severe sepsis without septic shock; I10 Essential (primary) hypertension; E11.65 Type 2 diabetes mellitus with hyperglycemia; D69.6 Thrombocytopenia, unspecified; D63.8 Anemia in other chronic diseases classified elsewhere; K52.9 Noninfective gastroenteritis and colitis, unspecified; E78.5 Hyperlipidemia, unspecified; B96.20 Unspecified Escherichia coli [E. coli] as the cause of diseases classified elsewhere; Z79.899 Other long term (current) drug therapy; Z98.51 Tubal ligation status; Z79.4 Long term (current) use of insulin
CPT/HCPCS: 36415; 36569; 71045; 74177; 76770; 80048; 80076; 80170; 81003; 81015; 81025; 82010; 82274; 82607; 82728; 82805; 82947; 83010; 83036; 83540; 83605; 83615; 83690; 83735; 84100; 84132; 84145; 84466; 85014; 85018; 85025; 85044; 87040; 87077; 87086; 87088; 87186; 87205; 99285; J0696; J1170; J1580; J1650; J1815; J2185; J2270; J2405; J3475; J3480; J7030; J7040; Q9967; U0003

== ENCOUNTER 2022-10-18 11:27 | Inpatient (IN) | payer SELFPAY ==
--- OUTSIDE RECORDS SUMMARY | 2022-10-18 11:30 | XMS REPORT | Continuity of Care Document ---
:1980 Author Organization [facility] t Address [address] [place] [address] [address] [place] [address] Care Team Providers Name Role Phone PCP, PATIENT DOES NOT HAVE A Primary Care Physician Unavaila ble ANGELIC HOLDEN Attending Clinician Unavailable Angelic Holden DO Attending Clinician VICK PENALOZA Attending Clinician Unavailable Vick Frye Attending Clinician Sanchez TAYLOR Attending Clinician Unavailable Sanchez Jarquin Attending Clinician Doctor Unassigned, [place] Attending Clinician Unavailable VICK PENALOZA Admitting Clinician Unavailable Payers Payer Name Policy Type Policy Number Effective Date Expiration Date S yao MEDICAID SIMONAEN PENDING 2022 PENDING 00:00:00 Problems Condition Condition Condition Status Onset Resolution Last Treating Co mments Source Name Details Category Date Date Treatment Clinician Date Encounter Encounter Disease Active Overview: Univers for for 05-17 Formattin ity of routine routine 00:00: g of this [place] gynecologi gynecologi 00 note Me dical helen helen might be Branch examinatio examinatio different n n from the original. 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 Utility Rubella Rubella Disease Active Univers immune immune 05-17 ity of 00:00: [place] 00 [facility] Dysmenorrh Dysmenorrh Disease Active U nivers ea ea 05-17 ity of 00:00: [place] 00 [facility] Allergies, Adverse Reactions, Alerts Allergy Allergy Status Severity Reaction(s) Onset Inactive Treating Comm ents Source Name Type Date Date Clinician NO KNOWN Drug Active [facility] ALLERGIE Class ity of [facility] Social History Social Habit Start Date Stop Date Quantity Comments Source Exposure to 2022-10-06 2022-10-16 Not sure [facility] SARS-CoV-2 00:00:00 19:25:00 [facility] (event) [place] Alcohol intake 2022-10-16 2022-10-16 Current University 00:00:00 00:00:00 non-drinker of [facility] alcohol (finding) [place] Tobacco use and 2013-05-17 2013-05-17 Smokeless tobacco Un iversity of exposure 00:00:00 00:00:00 non-user [facility] Sex Assigned At [birth year] [facility]:00 [facility] Smoking Status Start Date Stop Date Source Never smoked tobacco [facility] Medications Ordered Filled Start Stop Current Ordering Indication Dosage Frequency Signature Comments Components Source Medication Medication Date Date Medication? Clinician (SIG) Name Name ibuprofen No 600mg 600 mg, Uni vers (IBU) 10-17 Oral, ity of tablet 600 01:45: 01:38 ONCE, 1 Ronald as mg 00 :00 dose, On Fri10/16/22 Branch at 1945, RHETT No known No No known Unive rs medications 10-16 medication it y of 19:24: s [address] naproxen 2021- No 500mg 500 mg, Univ ers (NAPROSYN) 03-01 Oral, ity of tablet 500 07:45: 06:52 ONCE, 1 [place] as mg 00 :00 dose, On Medical Fri Branch 03/01/22 at 0245, Routine iopamidol 2021- No [id number] 120mL 120 mL, Univers (ISOVUE 03-01- Intravenou ity o f 370-500 mL) 06:45: 05:37 s, ONCE, 1 [place] injection 00 :00 dose, On Medica l 120 mL Fri Branch 03/01/22 at 0145, Routine ondansetron No 4mg 4 mg, Slow Univers (ZOFRAN - 05-20 IV Push, ity of (PF)) 04:45: 03:55 ONCE, 1 [place] injection 4 00 :00 dose, On Medi helen mg Radha Branch 02/28/22 at 2345, RHETT morpHINE (4 No 4mg 4 mg, Slow Univers mg/mL) 5 05-20 IV Push, ity of injection 4 04:45: 03:56 [place]CE[place] 1 [place] mg 00 :[place] dose, On [facility] Branch 02/28/22 at 2345, STAT NaCl 0.9% 1000mL at 999 Uni vers (NS) bolus 03-01 05-20 mL/hr, ity of infusion 04:45: 05:19 1,000 mL, Ronald as 1,000 mL 00 :00 IV Medical Infusion, Branch ONCE, 1 dose, On Radha 02/28/22 at 2345, STAT No known No Univers medications 02-28 ity of 22:35: [address] Branch gabapentin No 300mg 300 mg, Un molina (NEURONTIN) 01-0930 Oral, ity of capsule 300 03:45: 02:47 [place]CE[place] 1 [place] mg 00 :[place] dose, On [facility] 01/08/22 at 2245, RHETT gabapentin 2021- No [id number] 100mg Take 1 Univers 100 mg 01-08 0409 [id number] capsule by ity of capsule 00:00: 04:59 mouth 3 [place] 00 :00 (three) Medical times Branch daily for 10 days. No known No Univers medications 05-17 ity of 11:32: [place] 08 [facility] Immunizations Ordered Filled Immunization Date Status Comments [facility] e Immunization Name Name Rubella 2008-02-10 Completed [facility] 00:00:00 [facility] Rubella 2008-02-10 Completed [facility] 00:00:00 [facility] Rubella 2008-02-10 Completed [facility] 00:00:00 [facility] Rubella 2008-02-10 Completed University of 00:00:00 [place] [facility] Td 2005-05-17 Completed University of 00:00:00 [place] [facility] Td 2005-05-17 Completed University of 00:00:00 [place] [facility] Td 2005-05-17 Completed University of 00:00:00 [facility] Branch TD, NOS 2005-05-17 Completed University of 00:00:00 [facility] Vital Signs Vital Name Observation Time Observation Value Comments Source Systolic blood 2022-10-17 01:29:00 144 mm[Hg] Univer sity of pressure [facility] Diastolic blood 2022-10-17 01:29:00 85 mm[Hg] Unive rsity of pressure [facility] Heart rate 2022-10-17 01:29:00 116 /min Universi ty of [facility] Body temperature 2022-10-17 01:29:00 38.5 Josee Univ ersity of [facility] Branch Respiratory rate 2022-10-17 01:29:00 18 /min Univ ersity of [facility] Body height 2022-10-17 01:29:00 152.4 cm Universi ty of [place] [facility] [place] Body weight 2022-10-17 01:29:00 57.153 kg Universi ty of [place] [facility] BMI 2022-10-17 01:29:00 24.61 kg/m2 Universi ty [facility] Oxygen saturation in 2022-10-17 01:29:00 100 /min University of Arterial blood by [facility] Pulse oximetry Branch Systolic blood 2022-03-01 07:00:00 136 mm[Hg] Univer sity of pressure [facility] Diastolic blood 2022-03-01 07:00:00 83 mm[Hg] Unive rsity of pressure [facility] Heart rate 2022-03-01 07:00:00 72 /min Universi ty of [facility] Respiratory rate 2022-03-01 07:00:00 14 /min Univ ersity of [facility] Oxygen saturation in 2022-03-01 07:00:00 98 /min University of Arterial blood by [facility] Pulse oximetry Branch Body temperature 2022-03-01 02:56:00 36.17 Josee Univ ersity of [facility] Body height 2022-03-01 02:56:00 152.4 cm Universi ty of [facility] Body weight 2022-03-01 02:56:00 54.432 kg [facility] BMI 2022-03-01 02:56:00 23.44 kg/m2 [facility] Systolic blood 2022-01-09 03:23:00 142 mm[Hg] Univer sity of pressure [facility] Diastolic blood 2022-01-09 03:23:00 77 mm[Hg] Unive [facility] Heart rate 2022-01-09 03:23:00 65 /min [facility] Respiratory rate 2022-01-09 03:23:00 18 /min [facility] Oxygen saturation in 2022-01-09 03:23:00 99 /min [facility] Arterial blood by [facility] Pulse oximetry [place] Body temperature 2022-01-09 01:40:00 36.83 Josee [facility] Body height 2022-01-09 01:40:00 152.4 cm [facility] Body weight 2022-01-09 01:40:00 58.968 kg [facility] BMI 2022-01-09 01:40:00 25.39 kg/m2 [facility] Procedures Procedure Date / Time Performing Clinician Source Performed RAPID INFLUENZA A/B 2022-10-17 01:33:00 Angelic Holden [facility] COVID-19 (ID NOW RAPID 2022-10-17 01:33:00 Angelic Holden [facility] TESTING) [facility] CONSENT/REFUSAL FOR 2022-10-17 01:23:24 [facility]assigned, [facility] US PELVIS COMPLETE WITH 2022-03-01 08:09:47 Vick Penaloza [facility] TRANSVAGINAL [facility] CT ABDOMEN PELVIS W 2022-03-01 05:39:15 Vick Penaloza [facility] CONTRAST [facility] POCT TEST 2022-03-01 03:59:00 Vick Penaloza [facility] LIPASE 2022-03-01 03:55:00 Vick Penaloza [place] o [facility] COMP. METABOLIC PANEL 2022-03-01 03:55:00 Vick Penaloza [facility] ([id number]) Medical Branch CBC WITH DIFF 2022-03-01 03:55:00 Vick Penaloza [facility] URINALYSIS 2022-03-01 03:55:00 Vick Penaloza [facility] NOTICE OF PRIVACY 2022-03-01 02:36:44 Doctor Unassigned, No [facility] Branch CONSENT/REFUSAL FOR 2022-03-01 02:36:31 Doctor Unassigned, No Un iversity of [place] DIAGNOSIS AND TREATMENT Name Medical Branch NOTICE OF PRIVACY 2022-01-09 01:30:37 Doctor Unassigned, No [facility] Medical Branch CONSENT/REFUSAL FOR 2022-01-09 01:29:11 Doctor Unassigned, No Un iversity of [place] DIAGNOSIS AND TREATMENT Name [facility] Encounters Start End Encounter Admission Attending Care Care Encounter Source Date/Time Date/Time Type Type Clinicians Facility Department ID 2022-10-16 2022-10-16 Emergency X NAVIN [facility] ERT [id number] Univers 19:38:00 20:23:00 ANGELIC malcolm [facility] 2022-10-16 2022-10-16 Obdulia Holden [facility] [id number] Univers 19:38:00 20:23:00 Angelic HENDERSON [id number] ity [facility] [id number] [facility] [id number] [address] 2022-02-28 2022-03-01 Emergency X CA [facility] ERT [id number] Univers 21:58:00 03:33:00 VICK malcolm [facility] 2022-02-28 2022-03-01 Emergency Ca [facility] [id number] Univers 21:58:00 03:33:00 Vick HENDERSON [id number] i ty [facility] [id number] [facility] [id number] [address] 2022-01-08 2022-01-08 Emergency X Sanchez TAYLOR [facility] ERT [id number] Univers 20:47:00 22:37:00 ity of [facility] 2022-01-08 2022-01-08 Emergency Silverio, K [facility] [id number] Univers 20:47:00 22:37:00 Nicole HENDERSON [id number] i ty of [place] [id number] [facility] [id number] [facility] 084 Branch 2022-01-08 2022-01-08 Orders Doctor MELIZA [id number] Univers 00:00:00 00:00:00 Only Unassigned, TAISHA [id number] ity of [place] [facility] 4.2.7.2.686 Ronald [id number] [facility] 009 Branch 2021-06-19 2021-06-19 Emergency X [facility] ERT [id number] Univers 14:48:00 14:48:00 [facility] Results Test Description Test Time Test Comments Results Result Comments Source COMP. METABOLIC PANEL (22764) 2022-03-01 04:28:28 Test Item Value Reference Range Interpretation Comme nts NA (test code = 7600553959) 134 mmol/L 135-145 L K (test code = 2794055469) 4.3 mmol/L 3.5-5.0 CL (test code = 9605887574) 101 mmol/L 98-108 CO2 TOTAL (test code = 4147258406) 23 mmol/L 23-31 AGAP (test code = 3159152983) 2-16 BUN (test code = 1008563513) 16 mg/dL 7-23 GLUCOSE (test code = 9519589261) 340 mg/dL 70-110 H CREATININE (test code = 0.57 mg/dL 0.50-1.04 7601658788) TOTAL BILI (test code = 0.1 mg/dL 0.1-1.2 5454796359) CALCIUM (test code = 3987769736) 9.1 mg/dL 8.6-10.6 T PROTEIN (test code = 5927646795) 7.4 g/dL 6.3-8.2 ALBUMIN (test code = 5822523717) 4.2 g/dL 3.5-5.0 ALK PHOS (test code = 7388567179) 111 U/L 34-122 ALTv (test code = 1742-6) 11 U/L 5-35 AST(SGOT) (test code = 1262991793) 21 U/L 13-40 eGFR (test code = 7311303913) mL/min/1.73m2 RAFIQ (test code = RAFIQ) Association of Glomerular Filtration Rate (GFR) and Staging of Kidney Disease* + +-------- + ------+| GFR (mL/min/1.73 m2) ?| With Kidney Damage ?| ?Without Kidney Damage+ +-- + +| ?>90 ?| ?Stage one ?| ? Normal ?+ +------- + -------+| ?60-89 ?| ?Stage two ?| ? Decreased GFR ? + +-------- + ------+| ?30-59 ?| ?Stage three ?| ? Stage three ? + +-------- + ------+| ?15-29 ?| ?Stage four ? | ? Stage four ?+ +------- + -------+| ?<15 (or dialysis) ? ?| ?Stage five ? | ? Stage five ?+ +------- + -------+ *Each stage assumes the associated GFR level has been in effect for at least three months. ?Stages 1 to 5, with or without kidney disease, indicate chronic kidney disease. Notes: Determination of stages one and two (with eGFR >59mL/min/1.73 m2) requires estimation of kidney damage for at least three months as defined by structural or functional abnormalities of the kidney, manifested by either:Pathological abnormalities or Markers of kidney damage (including abnormalities in the composition of the blood or urine or abnormalities in imaging tests). Lab Interpretation (test code = Abnormal 86789-7) [facility]27[facility]47 Test Item Value Reference Range Interpretation Comments LIPASE (test code = 1001047326) 115 U/L 0-220 Lab Interpretation (test code = Normal 74072-3) [facility] [id number] 04:24:27 Test Item Value Reference Range Interpretation Comments WBC (test code = See_Comment [Automated 4490-2) message] The sy stem which generated this result transmitted reference range : 4.30 - 11.10 10*3/?L. The reference range was not used to interpret this result as normal/abnormal . RBC (test code = See_Comment [Automated 789-8) message] The sy stem which generated this result transmitted reference range : 3.93 - 5.25 10*6/?L. The reference range was not used to interpret this result as normal/abnormal . HGB (test code = 10.5 g/dL 11.6-15.0 L 718-7) HCT (test code = 32.7 % 35.7-45.2 L 4544-3) MCV (test code = 76.8 fL 80.6-95.5 L 787-2) MCH (test code = 24.6 pg 25.9-32.8 L 785-6) MCHC (test code = 32.1 g/dL 31.6-35.1 786-4) RDW-SD (test code = 40.7 fL 39.0-49.9 59515-8) RDW-CV (test code = 14.6 % 12.0-15.5 788-0) PLT (test code = See_Comment [Automated 777-3) message] The sy stem which generated this result transmitted reference range : 166 - 358 10*3/ ?L. The reference r dona was not used to interpret this result as normal/abnormal . MPV (test code = 13.4 fL 9.5-12.9 H 09272-3) IPF % (test code = 13.7 % 1.3-7.7 H Platelet count [id number]) measured by fluorescence method. NRBC/100 WBC (test See_Comment [Automat ed code = 1965212615) message] The system which generated this result transmitted reference range : 0.0 - 10.0 /100 WBCs. The refer ence range was not u sed to interpret th is result as normal/abnormal . NRBC x10^3 (test code <0.01 See_Comment [Auto mated = 6775564297) message] The s ystem which generated this result transmitted reference range : 10*3/?L. The reference range was not used to interpret this result as normal/abnormal . GRAN MAT (NEUT) % 51.8 % (test code = 770-8) IMM GRAN % (test code 0.30 % = 5240716499) LYMPH % (test code = 34.1 % 736-9) MONO % (test code = 9.5 % 5905-5) EOS % (test code = 4.0 % 713-8) BASO % (test code = 0.3 % 706-2) GRAN MAT x10^3(ANC) 3.39 10*3/uL 1.88-7.09 (test code = 4613896559) IMM GRAN x10^3 (test <0.03 0.00-0.06 code = 8402945881) LYMPH x10^3 (test code 2.23 10*3/uL 1.32-3.29 = 731-0) MONO x10^3 (test code 0.62 10*3/uL 0.33-0.92 = 742-7) EOS x10^3 (test code = 0.26 10*3/uL 0.03-0.39 711-2) BASO x10^3 (test code <0.03 0.01-0.07 = 704-7) Lab Interpretation Abnormal (test code = 96732-6) [facility] [id number] 03:59:00 Test Item Value Reference Range Interpretation Comments POCT PREG (test code = 1605) negative On board controls acceptable with present C Line (test code = 3574) POCT PREG LOT # (test code = 3575) [id number] POCT PREG TEST DATE (test 08/12/2023 code = 3576) Lab Interpretation (test code = Normal 46553-1) [facility]"
[2022-10-18] MEDS ORDERED: NA CHLORIDE 0.9% 1,000 ML ONE ×2 (12:13→13:37)
[2022-10-18 12:44] LABS: Urine Blood 2+ (Negative); Urine Glucose 2+ (Negative); Urine Protein 2+ (Negative); Urine pH 5.5 (5.0-7.0)
[2022-10-18] MEDS ORDERED: CEFTRIAXONE 1000 MG/VIAL ONE (12:50)
[2022-10-18] MEDS ORDERED: MORPHINE 4 MG/ML SYR ONE (12:50)
[2022-10-18] MEDS ORDERED: ONDANSETRON 4 MG/2 ML VIAL ONE ×2 (12:51→17:55)
[2022-10-18 12:55] LABS: Absolute Lymphocytes (CBC) 0.4 K/uL (0.7-4.9); Hematocrit 36.4 % (36.0-45.0); Lymphocytes % 2.9 % (15.3-44.8); MCV 76.5 fL (80-100); MPV 10.6 fL (7.6-11.3); RBC Red Blood Cell Count 4.76 M/uL (3.86-4.86)
[2022-10-18 13:06] LABS: Urine Bacteria <20 /HPF (<20); Urine Mucus Slight /HPF (None Seen); Urine WBC Clump Occasional /HPF (None Seen)
[2022-10-18 13:08] LABS: Albumin 2.9 g/dL (3.4-5.0); Bilirubin Total 0.6 mg/dL (0.2-1.0); Magnesium 1.8 mg/dL (1.6-2.4); Potassium 3.6 mmol/L (3.5-5.1); Protein, Total 8.1 g/dL (6.4-8.2)
--- NOTE | 2022-10-18 13:46 | RAD REPORT ---
EXAM DESCRIPTION: CT - Abdomen Pelvis Wo Contrast - 10/18/2022 1:32 pm CLINICAL HISTORY: hx of pyelonephritis COMPARISON: Abdomen Pelvis W Contrast dated 10/21/2020 TECHNIQUE: Axial [address] imaging of the abdomen and pelvis was performed without IV contrast. No IV contrast was given because of allergy, abnormal renal function, patient refusal or physician re quest. No oral contrast administered. All CT scans are performed using dose optimization technique as appropriate and may include automated exposure control or mA/KV adjustment according to patient size. FINDINGS: Trace amount of pleural fluid noted on the left. No cardiomegaly or pericardial effusion. Liver has a very pronounced fatty infiltration pattern with no focal liver lesions seen on noncontras t imaging. Spleen and pancreas show no suspicious findings. Gallbladder and biliary tree are also wit hout suspicious finding. No acute right-sided finding identified. The left kidney is enlarged relative to the right and carlos alberto matous in appearance. There is perinephric stranding present. Mild left-sided hydronephrosis is prese nt with stranding in the periureteral fat down to the UVJ. There is no obstructing calculus in the le ft ureter. No nonobstructing left-sided calculi seen. Partially filled urinary bladder shows no wall thickening or edema to be evident. No bladder calculi. No significant adrenal finding. Isodense rosalind s are not excluded. Left-sided pyelonephritis is a primary consideration. The 2020 study showed exten sive bilateral pyelonephritis changes. A more mild pyelonephritis of the right kidney cannot be exclu ded. The right-sided hydronephrosis could be due to blood or inflammatory debris within the collectin g system. No dilated bowel loops or bowel wall thickening. No appendicitis findings. No free air, free fluid or inflammatory stranding. No hernia, mass or bulky lymphadenopathy. No suspicious bony findings. IMPRESSION: Enlarged, edematous left kidney with mild hydronephrosis present down to the UVJ level. No obstructing or nonobstructing calculi present. Based on the prior imaging events, acute pyelonephritis of the left kidney would be suspected. The hy dronephrosis could be due to blood or inflammatory debris within the left collecting system. Left-sided findings due to recently passed kidney stone are possible but felt to be lesser likelihood given the collective findings and prior study. Correlation is needed with clinical and laboratory fi ndings of acute pyelonephritis. No right abnormality seen. Right-sided isodense masses and pyelonephritis are not excluded. Full assessment is limited is the absence of IV contrast.
--- NOTE | 2022-10-18 14:06 | EDPHYS ---
Physician Documentation [facility] Name: Tati Oliveros Age: 41 yrs Sex: Female : 1980 Arrival Date: 10/18/2022 Time: 11:32 Bed 5 Private MD: ED Physician Roshan Corrales HPI: 10/18 14:19 This 41 yrs old Female presents to ER via Ambulatory with complaints of Flank snw Pain - left side, Fever, Nausea/Vomiting. Historical: - Allergies: 11:42 No Known Allergies; ap3 - Home Meds: 11:42 metformin 1,000 mg Oral tab 1 tab 2 times per day [Active]; atorvastatin 20 mg Oral tab ap3 1 tab nightly [Active]; - PMHx: 11:42 Diabetes - NIDDM; Hypertension; ap3 - Immunization history:: Client reports having NOT received the Covid vaccine. Flu vaccine is not up to date. - Social history:: Smoking status: Patient denies any tobacco usage or history of. Patient uses alcohol, occasionally. ROS: 14:18 Constitutional: Negative for chills and weight loss, + fever ENT: Negative for injury, snw pain, and discharge, Neck: Negative for injury, pain, and swelling, Cardiovascular: Negative for chest pain, palpitations, and edema, Respiratory: Negative for shortness of breath, cough, wheezing, and pleuritic chest pain, Abdomen/GI: Negative for abdominal pain, nausea, vomiting, diarrhea, and constipation, MS/Extremity: Negative for injury and deformity, Skin: Negative for injury, rash, and discoloration, Neuro: Negative for headache, weakness, numbness, tingling, and seizure, Psych: Negative for depression, anxiety, suicide ideation, homicidal ideation, and hallucinations. 14:18 Back: Positive for flank pain, on the left, radiated pain. 14:18 : Positive for urinary symptoms. Exam: 14:18 Constitutional: This is a well developed, well nourished patient who is awake, alert, snw and in no acute distress. Head/Face: Normocephalic, atraumatic. Eyes: Pupils equal round and reactive to light, extra-ocular motions intact. Lids and lashes normal. Conjunctiva and sclera are non-icteric and not injected. Cornea within normal limits. Periorbital areas with no swelling, redness, or edema. ENT: Nares patent. No nasal discharge, no septal abnormalities noted. Tympanic membranes are normal and external auditory canals are clear. Oropharynx with no redness, swelling, or masses, exudates, or evidence of obstruction, uvula midline. Mucous membranes moist. Neck: Trachea midline, no thyromegaly or masses palpated, and no cervical lymphadenopathy. Supple, full range of motion without nuchal rigidity, or vertebral point tenderness. No Meningismus. Chest/axilla: Normal chest wall appearance and motion. Nontender with no deformity. No lesions are appreciated. 14:18 Respiratory: Lungs have equal breath sounds bilaterally, clear to auscultation and percussion. No rales, rhonchi or wheezes noted. No increased work of breathing, no retractions or nasal flaring. 14:18 Skin: Warm, dry with normal turgor. Normal color with no rashes, no lesions, and no evidence of cellulitis. MS/ Extremity: Pulses equal, no cyanosis. Neurovascular intact. Full, normal range of motion. Neuro: Awake and alert, GCS 15, oriented to person, place, time, and situation. Cranial nerves II-XII grossly intact. Motor strength 5/5 in all extremities. Sensory grossly intact. Cerebellar exam normal. Normal gait. 14:18 Cardiovascular: Rate: tachycardic, Pulses: no pulse deficits are appreciated, Heart sounds: normal. 14:18 Abdomen/GI: Inspection: distension, that is moderate, Palpation: moderate abdominal tenderness, severe abdominal tenderness, in the posterior aspect of left lateral abdomen and left upper quadrant. Vital Signs: 11:38 BP 121 / 77; Pulse 106; Resp 17; Temp 98.7; Pulse Ox 100% ; Weight 56.7 kg; Height 5 ap3 ft. (152.40 cm); Pain 8/10; 12:45 BP 129 / 78; Pulse 102; Resp 15; Pulse Ox 98% on R/A; Pain 10/10; hb 13:40 BP 123 / 74; Pulse 105; Resp 17; Pulse Ox 99% on R/A; Pain 7/10; hb 15:02 BP 125 / 90; Pulse 115; Resp 14; Pulse Ox 98% on R/A; hb 11:38 Body Mass Index 24.41 (56.70 kg, 152.40 cm) ap3 MDM: 11:40 Patient medically screened. snw 13:20 Differential diagnosis: nephrolithiasis, pyelonephritis, UTI. Data reviewed: vital snw signs, nurses notes, lab test result(s), radiologic studies. ED course: UTI + elevated WBC, HR + elevated lactate = severe sepsis without shock. 14:02 Post IV fluid administration reassessment for Sepsis: Client prescribed 30 mL/kg IVF. snw Heart: Tachycardia noted. Current vital signs reviewed: Yes. 14:03 Physician consultation: Arnie Moulton MD regarding admission, to the medical/surgical snw unit. Derek Gray to see pt in ED. ED course: Pt to be admitted for severe sepsis without shock. Shock reassessment complete. 14:19 Data interpreted: Pulse oximetry: on room air is 99 %. Interpretation: normal. snw 10/18 11:39 Order name: CBC with Diff; Complete Time: 14:07 snw 10/18 11:39 Order name: CMP; Complete Time: 13:17 snw 10/18 11:39 Order name: Lipase; Complete Time: 13:17 snw 10/18 11:39 Order name: Urine Microscopic Only; Complete Time: 13:13 snw 10/18 11:39 Order name: Urine Culture snw 10/18 11:40 Order name: Blood Culture Adult (2) snw 10/18 11:40 Order name: Magnesium; Complete Time: 13:17 snw 10/18 11:40 Order name: Phosphorus; Complete Time: 13:17 snw 10/18 11:40 Order name: Lactate w/ 2H reflex if indic.; Complete Time: 13:16 snw 10/18 11:40 Order name: Procalcitonin; Complete Time: 13:42 snw 10/18 12:44 Order name: Urine Dipstick-Ancillary; Complete Time: 12:45 EDMS 10/18 13:01 Order name: Manual Differential; Complete Time: 14:07 EDMS 10/18 13:03 Order name: Urine --Ancillary (enter results); Complete Time: 13:36 eb 10/18 14:24 Order name: SARS RAPID; Complete Time: 15:04 snw 10/18 14:48 Order name: Hemoglobin A1c; Complete Time: 16:40 EDMS 10/18 14:48 Order name: T4 Free; Complete Time: 16:35 EDMS 10/18 14:48 Order name: Thyroid Stimulating Hormone; Complete Time: 16:35 EDMS 10/18 14:48 Order name: Urinalysis EDMS 10/18 14:48 Order name: Basic Metabolic Panel EDMS 10/18 14:48 Order name: Basic Metabolic Panel EDMS 10/18 14:48 Order name: Basic Metabolic Panel EDMS 10/18 14:48 Order name: Basic Metabolic Panel EDMS 10/18 14:48 Order name: CBC with Automated Diff EDMS 10/18 14:48 Order name: CBC with Automated Diff EDMS 10/18 14:48 Order name: CBC with Automated Diff EDMS 10/18 14:48 Order name: CBC with Automated Diff EDMS 10/18 14:48 Order name: Lipid Profile EDMS 10/18 14:48 Order name: Lipid Profile EDMS 10/18 14:48 Order name: Magnesium EDMS 10/18 14:48 Order name: Magnesium EDMS 10/18 11:39 Order name: IV Saline Lock; Complete Time: 12:54 snw 10/18 11:39 Order name: Labs collected and sent; Complete Time: 12:54 snw 10/18 11:39 Order name: Urine Dipstick-Ancillary (obtain specimen); Complete Time: 12:54 snw 10/18 11:39 Order name: Urine Test (obtain specimen); Complete Time: 12:54 snw 10/18 12:01 Order name: Droplet/Contact Precautions; Complete Time: 12:54 snw 10/18 13:31 Order name: Abdomen ; Complete Time: 13:55 EDMS 10/18 14:02 Order name: Ice: Ice chips; Complete Time: 14:02 snw 10/18 14:48 Order name: 60g Consistent Carbohydrate (ADA 1800/2000) EDMS 10/18 14:48 Order name: Phosphorus EDMS 10/18 14:48 Order name: Phosphorus EDMS 10/18 16:09 Order name: Retic Count; Complete Time: 16:11 EDMS 10/18 16:09 Order name: Lactate Sepsis 2 HR Follow-up; Complete Time: 16:11 EDMS 10/18 16:14 Order name: Liver (Hepatic) Function; Complete Time: 16:22 EDMS 10/18 16:32 Order name: Transferrin Sat/Iron Binding; Complete Time: 16:35 EDMS 10/18 16:32 Order name: Ferritin; Complete Time: 16:35 EDMS Administered Medications: 12:39 Drug: NS 0.9% 1000 ml Route: IV; Rate: 1 bolus; Site: right antecubital; hb 12:54 Drug: morphine 4 mg Route: IVP; Infused Over: 4 mins; Site: right antecubital; hb 13:33 Follow up: Response: No adverse reaction hb 12:54 Drug: Zofran (Ondansetron) 4 mg Route: IVP; Site: right antecubital; hb 13:33 Follow up: Response: No adverse reaction hb 12:54 Drug: Rocephin (cefTRIAXone) 1 grams Route: IV; Rate: calculated rate; Site: right hb antecubital; 13:40 Drug: NS 0.9% 1000 ml Route: IV; Rate: 1 bolus; Site: right antecubital; hb 14:09 Drug: Dilaudid (HYDROmorphone) 1 mg Route: IVP; Site: right antecubital; hb Disposition: 16:15 Co-signature as Attending Physician, Roshan REED was immediately available on-site ms3 in the Emergency Department for consultation in the care of the patient. Disposition Summary: 10/18/22 14:06 Hospitalization Ordered Hospitalization Status: Inpatient Admission snw Provider: Arnie Moulton Location: Telemetry/[facility] (Inpatient) snw Condition: Serious snw Problem: new snw Symptoms: are unchanged snw Bed/Room Type: Standard snw Room Assignment: 223(10/18/22 16:35) eb Diagnosis - Pyelonephritis acute snw - Severe sepsis without septic shock snw - JOHN snw Forms: - Medication Reconciliation Form snw - SBAR form snw Critical care time excluding procedures: 16:57 Critical care time: Bedside Care: 10 minutes, Consultation: 15 minutes, Family snw Intervention: 5 minutes. Total time: 30 minutes Signatures: Dispatcher [employer] EDLilliam Rossi FNP-C TRUST ADMINISTRATIVE ASSISTANT-Csnw Loreta Diaz RN RN Nancy Gallo RN RN ap3 Rosey Bingham Marcus, DO DO ms3 Corrections: (The following items were deleted from the chart) 13:31 12:03 Abdomen Pelvis W Con+CT.RAD.BRZ ordered. EDMS EDMS 16:35 14:06 snw eb
--- NOTE | 2022-10-18 14:06 | ER ---
Nurse's Notes [facility] Name: Tati Oliveros Age: 41 yrs Sex: Female : 1980 Arrival Date: 10/18/2022 Time: 11:32 Bed 5 Private MD: Diagnosis: Pyelonephritis acute;Severe sepsis without septic shock;JOHN Presentation: 10/18 11:38 Chief complaint: Patient states: her left lower abdomen hurts as well as her left ap3 flank. it is reported her pain radiates into her left leg. patient reports nausea, vomiting and Diarrhea since yesterday. Patient reports painful urination. Patient was evaluated at another facility 2 days ago, where she was dx with COVID. patient also reports a hx of kidney infections. Coronavirus screen: Client reports previous positive COVID test result. Ebola Screen: Client reports previous positive COVID test result. No symptoms or risks identified at this time. Initial Sepsis Screen: Does the patient meet any 2 criteria? No. Patient's initial sepsis screen is negative. Does the patient have a suspected source of infection? Yes: Dysuria/Frequency/Urgency/UTI. Risk Assessment: Do you want to hurt yourself or someone else? Patient reports no desire to harm self or others. Onset of symptoms was October 17, 2022. 11:38 Method Of Arrival: Ambulatory ap3 11:38 Acuity: NICK 3 ap3 Triage Assessment: 11:42 General: Appears uncomfortable, Behavior is restless. Pain: Complains of pain in left ap3 lower quadrant Pain radiates to back and left leg Pain currently is 8 out of 10 on a pain scale. Neuro: Level of Consciousness is awake, alert, obeys commands, Oriented to person, place, time, situation. Cardiovascular: Patient's skin is warm and dry. Respiratory: Airway is patent Respiratory effort is even, unlabored, Respiratory pattern is regular, symmetrical. GI: Reports diarrhea, nausea, vomiting. : Reports pain in left flank(s), with urination, urgency, urinary frequency. Historical: - Allergies: 11:42 No Known Allergies; ap3 - Home Meds: 11:42 metformin 1,000 mg Oral tab 1 tab 2 times per day [Active]; atorvastatin 20 mg Oral tab ap3 1 tab nightly [Active]; - PMHx: 11:42 Diabetes - NIDDM; Hypertension; ap3 - Immunization history:: Client reports having NOT received the Covid vaccine. Flu vaccine is not up to date. - Social history:: Smoking status: Patient denies any tobacco usage or history of. Patient uses alcohol, occasionally. Screenin:44 Abuse screen: Denies threats or abuse. Nutritional screening: No deficits noted. ap3 Tuberculosis screening: No symptoms or risk factors identified. Assessment: 12:30 General: See triage assessment. hb 13:40 Reassessment: Patient appears in no apparent distress at this time. Patient and/or hb family updated on plan of care and expected duration. Pain level reassessed. Patient is alert, oriented x 3, equal unlabored respirations, skin warm/dry/pink. 15:02 Reassessment: Patient appears in no apparent distress at this time. Patient and/or hb family updated on plan of care and expected duration. Pain level reassessed. Patient is alert, oriented x 3, equal unlabored respirations, skin warm/dry/pink. Vital Signs: 11:38 BP 121 / 77; Pulse 106; Resp 17; Temp 98.7; Pulse Ox 100% ; Weight 56.7 kg; Height 5 ap3 ft. (152.40 cm); Pain 8/10; 12:45 BP 129 / 78; Pulse 102; Resp 15; Pulse Ox 98% on R/A; Pain 10/10; hb 13:40 BP 123 / 74; Pulse 105; Resp 17; Pulse Ox 99% on R/A; Pain 7/10; hb 15:02 BP 125 / 90; Pulse 115; Resp 14; Pulse Ox 98% on R/A; hb 11:38 Body Mass Index 24.41 (56.70 kg, 152.40 cm) ap3 ED Course: 11:32 Patient arrived in ED. am2 11:38 Lilliam Hernandez [facility]NP-C [facility] snw 11:38 Roshan Corrales DO is Attending Physician. snw 11:41 Triage completed. ap3 11:44 Arm band placed on right wrist. ap3 12:36 Inserted saline lock: 20 gauge in right antecubital area, using aseptic technique. hb Blood collected. 12:53 Loreta Diaz, KADY is Primary Nurse. hb 12:56 EKG done, by ED staff. tm3 13:34 Abdomen In Process Unspecified. EDMS 14:05 Arnie Moulton MD is Hospitalizing Provider. snw Administered Medications: 12:39 Drug: NS 0.9% 1000 ml Route: IV; Rate: 1 bolus; Site: right antecubital; hb 12:54 Drug: morphine 4 mg Route: IVP; Infused Over: 4 mins; Site: right antecubital; hb 13:33 Follow up: Response: No adverse reaction hb 12:54 Drug: Zofran (Ondansetron) 4 mg Route: IVP; Site: right antecubital; hb 13:33 Follow up: Response: No adverse reaction hb 12:54 Drug: Rocephin (cefTRIAXone) 1 grams Route: IV; Rate: calculated rate; Site: right hb antecubital; 13:40 Drug: NS 0.9% 1000 ml Route: IV; Rate: 1 bolus; Site: right antecubital; hb 14:09 Drug: Dilaudid (HYDROmorphone) 1 mg Route: IVP; Site: right antecubital; hb Outcome: 14:06 Decision to Hospitalize by Provider. snw 18:26 Patient left the ED. hb Signatures: Dispatcher [employer] EDMS Aleksey Shiva tm3 Lilliam Hernandez, DEALMAKER-C DEALMAKER-Csnw Loreta Diaz, RN RN Nancy Toscano am2 Nancy Gallo RN RN ap3
[2022-10-18 14:07] LABS: Blood Morphology Comment NOT SEEN (NOT SEEN); Platelet Estimate DECR; Platelets, Giant PRESENT; Toxic Granulation 1+
[2022-10-18] MEDS ORDERED: HYDROMORPHONE HCL 1 MG/ML INJ ONE (14:07)
[2022-10-18 15:00] LABS: SARS-CoV-2 Antigen Rapid Res Positive (Negative)
[2022-10-18] MEDS ORDERED: NA CHLORIDE 0.9% 1,000 ML IV SCH (15:00)
[2022-10-18 15:59] LABS: RBC Red Blood Cell Count 4.7 M/uL (3.86-4.86)
[2022-10-18] MEDS: Meropenem 1,000 MG in NA CHLORIDE 0.9% 100 ML IV SCH ×4 (16:00→21:00)
[2022-10-18] MEDS ORDERED: Ringers Lactate 1,000 ML IV SCH (16:00)
[2022-10-18 16:13] LABS: Albumin 2.5 g/dL (3.4-5.0); Bilirubin Direct 0.2 mg/dL (0-0.2); Bilirubin Total 0.4 mg/dL (0.2-1.0); Protein, Total 7.3 g/dL (6.4-8.2)
[2022-10-18 16:20] LABS: Ferritin 82.6 ng/mL (8-388); Transferrin 233 mg/dL (200-360)
[2022-10-18] MEDS: INSULIN -REGULAR HUMAN 50 UNIT/0.5 ML ML SQ SCH ×2 (16:30→20:42)
[2022-10-18 16:32] LABS: Iron < 10.0 ug/dL (50-170)
--- NOTE | 2022-10-18 17:34 | P.CNS ---
Date of Consult: 10/18/22 Reason for Consult: JOHN Requesting Physician: Arnie Moulton Chief Complaint: Abdominal Pain History of Present Illness: 1:38 Chief complaint: Patient states: her left lower abdomen hurts as well as her left ap3 flank. it is reported her pain radiates into her left leg. patient reports nausea, vomiting and Diarrhea since yesterday. Patient reports painful urination. Patient was evaluated at another facility 2 days ago, where she was dx with COVID. patient also reports a hx of kidney infections. Coronavirus screen: Client reports previous positive COVID test result. Ebola Screen: Client reports previous positive COVID test result. No symptoms or risks identified at this time. Initial Sepsis Screen: Does the patient meet any 2 criteria? No. Patient's initial sepsis screen is negative. Does the patient have a suspected source of infection? Yes: Dysuria/Frequency/Urgency/UTI. Risk Assessment: Do you want to hurt yourself or someone else? Patient reports no desire to harm self or others. Onset of symptoms was October 17, 2022. This is 39-year-old female with PMH significant for diabetes mellitus type 2, hypertension, who presents to the emergency department for left lower abdominal pain. 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 Patient states that her symptoms started since Friday, her pain started at her feet and progressed to her abdominal area, with associated symptoms of fevers and malaise. On Friday her paint got progressively worse, with lower quadrant abdominal pain that radiated to her left flank area with fevers and malaise. She went to the ER for treatment and they diagnosed with COVID and told her symptoms were related to COVID. She was discharged home, her symptoms did not improve. She stated her pain was 10 out of 10, stabbing in severity. She medicated herself with Motrin and Tylenol which improved her pain to 6/10. Her pain is aggravated with movement and alleviated with laying on her side. She does report dysuria on urination with some burning sensation. In the ER, her labs were significant for elevated white count 13,000, elevated glucose 336, hyponatremia with sodium of 132, elevated creatinine 1.89, elevated BUN 26, and microcytic anemia. Patient will be admitted under the care of Dr. Moulton. 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 and lives at home with her family - Family History Mother Medical History: Hypertension Father Medical History: Hypertension, Diabetes Sister Medical History: Diabetes - Social History Alcohol use: Yes CD- Drugs: No Caffeine use: No Review of Systems 10-point ROS is otherwise unremarkable General: Weakness, Malaise Gastrointestinal: Abdominal Pain Physical Examination General: Oriented x3, Cooperative HEENT: Atraumatic Neck: Supple Respiratory: Clear to auscultation bilaterally Cardiovascular: No edema, Regular rate/rhythm Gastrointestinal: Tenderness, Guarding Musculoskeletal: No clubbing, No contractures Integumentary: No rashes, No cyanosis Neurological: Normal speech Laboratory Data (last 24 hrs) 10/18/22 12:38: Sodium 132 L, Potassium 3.6, BUN 26 H, Creatinine 1.89 H, Glucose 336 H, Phosphorus 5.0 H, Magnesium 1.8, Total Bilirubin 0.6, AST 53 H, ALT 25, Alkaline Phosphatase 114, Lipase 32 L 10/18/22 12:38: WBC 13.40 H, Hgb 11.6 L, Hct 36.4, Plt Count 111 L Imagings Data: EXAM DESCRIPTION: CT - Abdomen Pelvis Wo Contrast - 10/18/2022 1:32 pm CLINICAL HISTORY: hx of pyelonephritis COMPARISON: Abdomen Pelvis W Contrast dated 10/21/2020 TECHNIQUE: Axial [address] imaging of the abdomen and pelvis was performed without IV contrast. No IV contrast was given because of allergy, abnormal renal function, patient refusal or physician request. No oral contrast administered. All CT scans are performed using dose optimization technique as appropriate and may include automated exposure control or mA/KV adjustment according to patient size. FINDINGS: Trace amount of pleural fluid noted on the left. No cardiomegaly or pericardial effusion. Liver has a very pronounced fatty infiltration pattern with no focal liver lesions seen on noncontrast imaging. Spleen and pancreas show no suspicious findings. Gallbladder and biliary tree are also without suspicious finding. No acute right-sided finding identified. The left kidney is enlarged relative to the right and edematous in appearance. There is perinephric stranding present. Mild left-sided hydronephrosis is present with stranding in the periureteral fat down to the UVJ. There is no obstructing calculus in the left ureter. No nonobstructing left-sided calculi seen. Partially filled urinary bladder shows no wall thickening or edema to be evident. No bladder calculi. No significant adrenal finding. Isodense masses are not excluded. Left sided pyelonephritis is a primary consideration. The 2020 study showed extensive bilateral pyelonephritis changes. A more mild pyelonephritis of the right kidney cannot be excluded. The right-sided hydronephrosis could be due to blood or inflammatory debris within the collecting system. No dilated bowel loops or bowel wall thickening. No appendicitis findings. No free air, free fluid or inflammatory stranding. No hernia, mass or bulky lymphadenopathy. No suspicious bony findings. IMPRESSION: Enlarged, edematous left kidney with mild hydronephrosis present down to the UVJ level. No obstructing or nonobstructing calculi present. Based on the prior imaging events, acute pyelonephritis of the left kidney would be suspected. The hydronephrosis could be due to blood or inflammatory debris within the left collecting system. Left-sided findings due to recently passed kidney stone are possible but felt to be lesser likelihood given the collective findings and prior study. Correlation is needed with clinical and laboratory findings of acute pyelonephritis. No right abnormality seen. Right-sided isodense masses and pyelonephritis are not excluded. Full assessment is limited is the absence of IV contrast. Conclusions/Impression: Stage III JOHN in the setting of left pyelonephritis/ hydronephrosis Proteinuria -No NSAIDs -Continue IVF with LR Left pyelonephritis with left hydronephrosis -Continue IVF -Continue Abx -Start Flomax BID Hyponatremia in the setting of hyperglycemia -Continue IVF -Encourage nutrition Acidosis -Continue IVF with LR -Consider oral bicarb DM II with hyperglycemia -RISS Hypoalbuminemia -Encourage nutrition Anemia in chronic illness Iron Deficiency 3.1% Thrombocytopenia -Monitor CBC Sepsis in the setting of pyelonephritis -Follow up cultures -Continue abx; Agree with Meropenem due to hx ESBL Case reviewed with Dr. Moulton Thank you kindly for the consultation
[2022-10-18] MEDS: TAMSULOSIN 0.4 MG SR CAP PO SCH ×2 (17:38→20:41)
[2022-10-18] MEDS: ONDANSETRON 4 MG/2 ML VIAL IV PRN (17:52)
[2022-10-18] MEDS: HYDROMORPHONE HCL 0.5 MG/0.5 ML INJ IV PRN (17:53)
[2022-10-18] MEDS ORDERED: HYDROMORPHONE HCL 0.5 MG/0.5 ML INJ ONE (17:55)
--- NOTE | 2022-10-18 17:58 | P.HP ---
Certification for Inpatient With expected LOS: >2 Midnights Patient will require the following post-hospital care: None Practitioner: I am a practitioner with admitting privileges, knowledge of patient current condition, hospital course, and medical plan of care. Services: Services provided to patient in accordance with Admission requirements found in Title 42 Section 412.3 of the Code of Federal Regulations <Sean Gray - Last Filed: 10/18/22 17:53> Patient History Date of Service: 10/18/22 Primary Care Provider: None Reason for admission: Severe sepsis with acute pyelonephritis History of Present Illness: This is 39-year-old female with PMH significant for diabetes mellitus type 2, hypertension, who presents to the emergency department for left lower abdominal pain. 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 Patient states that her symptoms started since Friday, her pain started at her feet and progressed to her abdominal area, with associated symptoms of fevers and malaise. On Friday her paint got progressively worse, with lower quadrant abdominal pain that radiated to her left flank area with fevers and malaise. She went to the ER for treatment and they diagnosed with COVID and told her symptoms were related to COVID. She was discharged home, her symptoms did not improve. She stated her pain was 10 out of 10, stabbing in severity. She medicated herself with Motrin and Tylenol which improved her pain to 6/10. Her pain is aggravated with movement and alleviated with laying on her side. She does report dysuria on urination with some burning sensation. In the ER, her labs were significant for elevated white count 13,000, elevated glucose 336, hyponatremia with sodium of 132, elevated creatinine 1.89, elevated BUN 26, and microcytic anemia. Patient will be admitted under the care of Dr. Moulton. 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 - Family History Mother -: Hypertension Father -: Hypertension, Diabetes Sister -: Diabetes - Social History Alcohol use: Yes CD- Drugs: No Caffeine use: No <Sean Gray - Last Filed: 10/18/22 17:53> Date of Service: 10/19/22 <KenneyArnie - Last Filed: 10/19/22 15:10> Allergies No Known Allergies Allergy (Verified 09/11/20 23:23) Home Medications: Insulin NPH Human [Novolin N (Humulin N)*] 15 units SQ BIDWM #10 ml 10/26/20 Zinc Sulfate [Zinc Sulfate*] 220 mg PO DAILY #30 cap 10/26/20 Review of Systems 10-point ROS is otherwise unremarkable General: Fever, Chills, Malaise Gastrointestinal: Nausea, Vomiting, Abdominal Pain, Diarrhea Genitourinary: Dysuria <[place],Sean - Last Filed: 10/18/22 17:53> Physical Examination - Physical Exam General: Alert, Oriented x3 HEENT: Atraumatic, Normocephalic Neck: Supple, 2+ carotid pulse no bruit Respiratory: Clear to auscultation bilaterally, Normal air movement Cardiovascular: No edema, Normal pulses Capillary refill: <2 Seconds Gastrointestinal: Normal bowel sounds, Tenderness, Rebound, Guarding Musculoskeletal: No clubbing, No swelling Integumentary: No rashes, No breakdown Neurological: Normal speech, Normal strength at 5/5 x4 extr, Normal tone External genitalia: No edema - Studies Laboratory Data (last 24 hrs) 10/18/22 12:38: Sodium 132 L, Potassium 3.6, BUN 26 H, Creatinine 1.89 H, Glucose 336 H, Phosphorus 5.0 H, Magnesium 1.8, Total Bilirubin 0.6, AST 53 H, ALT 25, Alkaline Phosphatase 114, Lipase 32 L 10/18/22 12:38: WBC 13.40 H, Hgb 11.6 L, Hct 36.4, Plt Count 111 L <MarinaSean - Last Filed: 10/18/22 17:53> Assessment and Plan - Plan Assessment Severe sepsis with acute pyelonephritis Hx of ESBL/UTI Diabetes mellitus type 2 with hyperglycemia Hypertension Anemia of chronic disease Acute kidney injury Nausea Plan Severe sepsis with acute pyelonephritis -Continue LR 100 mL an hour -Continue antibiotics -Blood cultures pending -Procalcitonin-74.54 and lactic 3.1 -Medicate for pain -Nephrology consulted, recommendation appreciated Hx of ESBL/UTI -Continue antibiotics -Infectious disease consulted, recommendation appreciated Diabetes mellitus type 2 with hyperglycemia -Blood glucose of 336 on admission -Most recent hemoglobin A1C 12.5%, will recheck -Accu-Chek before meals and at bedtime with sliding scale insulin coverage Hypertension -Resume home medication when appropriate Anemia of chronic disease -Baseline hemoglobin 9-10 -CT of abdomen and pelvis without signs of bleeding or hematoma -Transfuse if hemoglobin is less than 7 Acute kidney injury -Creatinine of 1.89 BUN of 26 -Continue LR at 100 mL/hr -Nephrology on the case Nausea-as needed Zofran PPX- Lovenox, PPI Code Status- Full code Discharge Plan: Home Plan to discharge in: 48 Hours - Advance Directives Does patient have a Living Will: No Does patient have a Durable POA for Healthcare: No - Code Status/Comfort Care Code Status Assessed: Yes (Full code) Critical Care: No Time Spent Managing Pts Care (In Minutes): 50 <Sean Gray - Last Filed: 10/18/22 17:53> Physician Review: Patient Assessed, Agree with Above Assessment and Plan <Arnie Moulton - Last Filed: 10/19/22 15:10>
[2022-10-18] MEDS ORDERED: PIPER TAZO 3.375 GM in NA CHLORIDE 0.9% 100 ML IV SCH (18:00)
[2022-10-18] MEDS: ACETAMINOPHEN 500 MG TAB PO PRN (20:38)
[2022-10-18] MEDS ORDERED: TAMSULOSIN 0.4 MG SR CAP PO SCH (21:00)
[2022-10-18] MEDS ORDERED: CEFEPIME 1 GM in NA CHLORIDE 0.9% 100 ML IV SCH (21:00)
[2022-10-18] MEDS ORDERED: Ringers Lactate 1,000 ML IV ONE (22:56)
[2022-10-19] MEDS: ACETAMINOPHEN 500 MG TAB PO PRN ×2 (00:44→05:04)
[2022-10-19] MEDS: HYDROMORPHONE HCL 0.5 MG/0.5 ML INJ IV PRN ×7 (00:53→21:09)
[2022-10-19] MEDS ORDERED: NA CHLORIDE 0.9% 250 ML ONE (01:22)
[2022-10-19] MEDS ORDERED: VANCOMYCIN 1 GM/VIAL ONE (01:23)
[2022-10-19] MEDS ORDERED: VANCOMYCIN 1 GM in NA CHLORIDE 0.9% 250 ML IVPB SCH (02:00)
[2022-10-19] MEDS: Ringers Lactate 1,000 ML IV SCH ×2 (02:13→12:24)
[2022-10-19 06:03] LABS: Magnesium 1.5 mg/dL (1.6-2.4); Phosphorus 3.6 mg/dL (2.5-4.9); Potassium 3.6 mmol/L (3.5-5.1)
[2022-10-19] MEDS ORDERED: MAGNESIUM SULFATE 1 gm IVPB 1 GM/100 ML BAG IV ONE (06:12)
[2022-10-19] MEDS ORDERED: POTASSIUM CL SA 10 MEQ TAB PO ONE (06:12)
[2022-10-19 06:39] LABS: Absolute Lymphocytes (CBC) 0.4 K/uL (0.7-4.9); Lymphocytes % 5.5 % (15.3-44.8); MCV 75.4 fL (80-100); MPV 11.3 fL (7.6-11.3); RBC Red Blood Cell Count 3.71 M/uL (3.86-4.86)
[2022-10-19 07:40] LABS: Toxic Granulation 3+
[2022-10-19 07:41] LABS: Anisocytosis 1+; Blood Morphology Comment NOTED (NOT SEEN); Dohle Bodies PRESENT; Platelet Estimate DECR
[2022-10-19] MEDS: INSULIN -REGULAR HUMAN 50 UNIT/0.5 ML ML SQ SCH ×4 (08:14→21:11)
[2022-10-19] MEDS: Meropenem 1,000 MG in NA CHLORIDE 0.9% 100 ML IV SCH ×2 (08:15→21:10)
[2022-10-19] MEDS: TAMSULOSIN 0.4 MG SR CAP PO SCH ×2 (08:15→21:00)
[2022-10-19] MEDS ORDERED: ENOXAPARIN 30 MG/0.3 ML SQ SCH (09:00)
--- NOTE | 2022-10-19 13:31 | P.PN ---
Date of Service: 10/19/22 Vital Signs Temp Pulse Resp BP Pulse Ox 98.1 F 118 H 20 112/71 93 10/19/22 12:00 10/19/22 12:00 10/19/22 12:00 10/19/22 12:00 10/19/22 12:00 Medications Acetaminophen (Acetaminophen 500 Mg Tab) 500 mg PO Q4HP PRN PRN Reason: Pain scale 2-4 (Mild) Last Admin: 10/19/22 05:04 Dose: 500 mg Enoxaparin Sodium (Enoxaparin 30 Mg/0.3 Ml) 30 mg SQ DAILY [facility] Hydromorphone HCl (Hydromorphone Hcl 0.5 Mg/0.5 Ml Inj) 0.5 mg IV Q3HP PRN PRN Reason: Pain scale 8-10 (Severe) Last Admin: 10/19/22 11:00 Dose: 0.5 mg Meropenem 1,000 mg/ Sodium (Chloride) 100 mls @ 200 mls/hr IV Q12H [facility] Last Admin: 10/19/22 08:15 Dose: 100 mls Vancomycin HCl 1 gm/ Sodium (Chloride) 250 mls @ 250 mls/hr IVPB Q36H [facility]; Protocol Last Admin: 10/19/22 01:22 Dose: 250 mls Sodium Bicarbonate 75 meq/ (Sodium Chloride) 1,075 mls @ 125 mls/hr IV .Q8H36M [facility] Insulin Human Regular (Insulin -Regular Human 50 Unit/0.5 Ml Ml) 0 unit SQ ACHS [facility]; Protocol Last Admin: 10/19/22 12:24 Dose: 4 unit Ondansetron HCl (Ondansetron 4 Mg/2 Ml Vial) 4 mg IV Q6HP PRN PRN Reason: NAUSEA / VOMITING Last Admin: 10/18/22 17:52 Dose: 4 mg Sodium Bicarbonate (Sodium Bicarb 325 Mg Tab) 650 mg PO QID [facility] Sodium Chloride (Flush Normal Saline 10 Ml) 10 ml IV BID [facility] Last Admin: 10/19/22 08:14 Dose: 10 ml Tamsulosin HCl (Tamsulosin 0.4 Mg Sr Cap) 0.4 mg PO BID [facility] Last Admin: 10/19/22 08:15 Dose: 0.4 mg Lab Results (last 24 hrs) 10/18/22 13:03: Ur Specific Mcdonald (HCG) 1.010, Urine Test Neg 10/18/22 12:38: Procalcitonin 74.54 H 10/18/22 12:38: Segmented Neutrophils 75, Band Neutrophils 5 H, Lymphocytes 4 L, Monocytes 16 H, Toxic Granulation 1+, Platelet Estimate Decr, Giant Platelets Present, Morphology Comment Not seen Microbiology Results 10/18/22 12:42 Clean Catch Urine [place] Count - Preliminary >100,000 CFU/ML. 10/18/22 12:42 Clean Catch Urine - Preliminary 10/18/22 12:06 Blood - Blood Aerobic Blood Culture - Preliminary 10/18/22 12:06 Blood - Blood Blood Culture Gram Stain - Preliminary 10/18/22 12:06 Blood - Blood Anaerobic Blood Culture - Preliminary 10/18/22 12:06 Blood - Blood Gram Stain - Preliminary 10/18/22 12:38 Blood - Blood Aerobic Blood Culture - Preliminary 10/18/22 12:38 Blood - Blood Blood Culture Gram Stain - Preliminary 10/18/22 12:38 Blood - Blood Anaerobic Blood Culture - Preliminary 10/18/22 12:38 Blood - Blood Gram Stain - Preliminary Assessment/ Plan: Nephrology No dyspnea No chest pain Persistent left flank and LLE pain No acute events overnight Vitals, medications, blood work and imaging reviewed in the chart. General: Oriented x3, Cooperative HEENT: Atraumatic Neck: Supple Respiratory: Clear to auscultation bilaterally Cardiovascular: No edema, Regular rate/rhythm Gastrointestinal: Tenderness, Guarding Musculoskeletal: No clubbing, No contractures Integumentary: No rashes, No cyanosis Neurological: Normal speech Laboratory Data (last 24 hrs) 10/18/22 12:38: Sodium 132 L, Potassium 3.6, BUN 26 H, Creatinine 1.89 H, Glucose 336 H, Phosphorus 5.0 H, Magnesium 1.8, Total Bilirubin 0.6, AST 53 H, ALT 25, Alkaline Phosphatase 114, Lipase 32 L 10/18/22 12:38: WBC 13.40 H, Hgb 11.6 L, Hct 36.4, Plt Count 111 L Imagings Data: EXAM DESCRIPTION: CT - Abdomen Pelvis Wo Contrast - 10/18/2022 1:32 pm CLINICAL HISTORY: hx of pyelonephritis COMPARISON: Abdomen Pelvis W Contrast dated 10/21/2020 TECHNIQUE: Axial [address] imaging of the abdomen and pelvis was performed without IV contrast. No IV contrast was given because of allergy, abnormal renal function, patient refusal or physician request. No oral contrast administered. All CT scans are performed using dose optimization technique as appropriate and may include automated exposure control or mA/KV adjustment according to patient size. FINDINGS: Trace amount of pleural fluid noted on the left. No cardiomegaly or pericardial effusion. Liver has a very pronounced fatty infiltration pattern with no focal liver lesions seen on noncontrast imaging. Spleen and pancreas show no suspicious findings. Gallbladder and biliary tree are also without suspicious finding. No acute right-sided finding identified. The left kidney is enlarged relative to the right and edematous in appearance. There is perinephric stranding present. Mild left-sided hydronephrosis is present with stranding in the periureteral fat down to the UVJ. There is no obstructing calculus in the left ureter. No nonobstructing left-sided calculi seen. Partially filled urinary bladder shows no wall thickening or edema to be evident. No bladder calculi. No significant adrenal finding. Isodense masses are not excluded. Left sided pyelonephritis is a primary consideration. The 2020 study showed extensive bilateral pyelonephritis changes. A more mild pyelonephritis of the right kidney cannot be excluded. The right-sided hydronephrosis could be due to blood or inflammatory debris within the collecting system. No dilated bowel loops or bowel wall thickening. No appendicitis findings. No free air, free fluid or inflammatory stranding. No hernia, mass or bulky lymphadenopathy. No suspicious bony findings. IMPRESSION: Enlarged, edematous left kidney with mild hydronephrosis present down to the UVJ level. No obstructing or nonobstructing calculi present. Based on the prior imaging events, acute pyelonephritis of the left kidney would be suspected. The hydronephrosis could be due to blood or inflammatory debris within the left collecting system. Left-sided findings due to recently passed kidney stone are possible but felt to be lesser likelihood given the collective findings and prior study. Correlation is needed with clinical and laboratory findings of acute pyelonephritis. No right abnormality seen. Right-sided isodense masses and pyelonephritis are not excluded. Full assessment is limited is the absence of IV contrast. Conclusions/Impression: Stage III JOHN in the setting of left pyelonephritis/ hydronephrosis Proteinuria -No NSAIDs -Continue aggressive IVF Left pyelonephritis with left hydronephrosis -Continue IVF -Continue Abx -Continue Flomax BID Hyponatremia in the setting of hyperglycemia -Change IVF 1/2NS + Bicarb -Encourage nutrition Acidosis -Change IVF 1/2NS + Bicarb -Start oral bicarb DM II with hyperglycemia -RISS Hypoalbuminemia -Encourage nutrition Anemia in chronic illness Iron Deficiency 3.1% Thrombocytopenia -Monitor CBC -Consider IV iron as infection improves Sepsis in the setting of pyelonephritis -Follow up cultures -Continue abx; Agree with Meropenem due to hx ESBL -ID following Case reviewed with Dr. Moulton
[2022-10-19] MEDS: SODIUM BICARB 325 MG TAB PO SCH ×3 (14:15→21:00)
[2022-10-19] MEDS: NACHLORIDE 0.45% 1,000 ML with NA BICARB 8.4% 75 MEQ IV SCH ×4 (14:15→22:50)
[2022-10-19] MEDS: ONDANSETRON 4 MG/2 ML VIAL IV PRN (14:22)
--- NOTE | 2022-10-19 15:17 | P.PN ---
Subjective Date of Service: 10/19/22 Primary Care Provider: None Chief Complaint: Abdominal Pain Ms. Tati White is Chinese-speaking only. The following history was obtained with the assistance of [employer] certified Chinese-Luxembourger senior corporate recruiter, Ms. Taylor, (ID# [id number]). Overnight, she spiked fevers up to 102.0 F. She reports significant left-sided flank pain, diaphoresis, chills, dysuria, and night sweats. 4/4 blood cultures have returned positive for gram-negative rods. Review of Systems 10-point ROS is otherwise unremarkable General: Fever, Chills, Sweats, Malaise Genitourinary: Dysuria, Frequency, Urgency Musculoskeletal: Back Pain (left flank) Physical Examination - Vital Signs Temperature: 98.1 F Blood Pressure: 112/71 Pulse: 118 Respirations: 20 Pulse Ox (%): 97 - Physical Exam General: Alert, Oriented x3, Mild distress HEENT: Atraumatic, Mucous membr. moist/pink, EOMI, Sclerae nonicteric Neck: JVD not distended Respiratory: Clear to auscultation bilaterally, Normal air movement Cardiovascular: No edema, Normal S1 S2, No gallops, No rubs, No murmurs, Other (tachycardic) Gastrointestinal: Normal bowel sounds, Soft and benign, Non-distended, No rebound, No guarding, Tenderness (mid-left abdomen) Musculoskeletal: No clubbing, Other (left CVA tenderness) Integumentary: No rashes Neurological: Normal speech, Cranial nerves 3-12 intact, Normal affect Assessment And Plan - Plan # Severe Sepsis likely secondary to Acute Pyelonephritis with Gram-Negative Bacteremia # Mild Left Hydronephrosis # Thrombocytopenia secondary to Sepsis # History of ESBL Urinary Tract Infections She met criteria based on temperature > 100.9 F, HR > 90 bpm, RR > 20 breaths/min, WBC > 12,000, and the source is urinary. Severe sepsis is suspected due to concern for tissue hypoperfusion/organ dysfunction based on platelet count < 100,000 and lactic acid > 2 mmol/L. - Infectious Diseases consulted and spoke with Dr. Almanzar - recommendations appreciated - Urology consulted and spoke with Dr. Durand - recommendations appreciated - Recommended Stark catheter placement and NPO past 17:00 for possible proc edure tonight - CT abdomen/pelvis = "enlarged, edematous left kidney with mild hydronephrosis present down to the UVJ level. No obstructing or nonobstructing calculi present. Based on the prior imaging events, acute pyelonephritis of the left kidney would be suspected. The hydronephrosis could be due to blood or inflammatory debris within the left collecting system. Left-sided findings due to recently passed kidney stone are possible but felt to be lesser likelihood given the collective findings and prior study. Correlation is needed with clinical and laboratory findings of acute pyelonephritis. No right abnormality seen. Right-sided isodense masses and pyelonephritis are not excluded. Full assessment is limited is the absence of IV contrast." - Sepsis order set was initiated - Lactate: 3.9 -> 3.1 - Procalcitonin = 74.54 - Blood cultures drawn before antibiotics were given - Broad spectrum antibiotics started: Meropenem - In regards to fluids: - 30 mL/kg of IV fluids was given based on patient's actual body weight - Continue 1/2NS + D5W @ 125 mL/hr # KDIGO Stage III Acute Kidney Injury likely due to above - Consulted Nephrology and spoke with Dr. Apple - recommendations appreciated - Creatinine = 1.89 -> 1.39 (baseline creatinine ~0.4-0.6) - Urinalysis = 2+ glucose, 3+ ketones, 2+ blood, trace leukocyte esterase, 11-20 RBCs, >50 WBCs, 2+ protein - IV fluids as mentioned above - Monitor creatinine and urine output - If worsening, obtain renal ultrasound - Renally dose medications # Hyperglycemia in Type II Diabetes Mellitus - Hgb A1c =12.6 % - Correction scale insulin # COVID-19 Positive - Denies any respiratory symptoms - Obtain chest x-ray - Encouraged incentive spirometry # Hypertension - Hole home medications due to concern for sepsis Arnie Moulton M.D.
[2022-10-19] MEDS ORDERED: PROMETHAZINE INJ 25 MG/ML AMP IV PRN (16:37)
--- NOTE | 2022-10-19 17:32 | RAD REPORT ---
EXAM DESCRIPTION: RAD - Chest Single View - 10/19/2022 5:25 pm CLINICAL HISTORY: COVID COMPARISON: Chest Single View dated 10/21/2020; Chest Single View dated 10/21/2020 FINDINGS: Lines: None. Lungs: Hazy opacities are present at the right lung base. Pleural: No significant pleural effusions or pneumothorax. Cardiac: The heart size is within normal limits. Mediastinum: Within normal limits. Bones: No acute fractures. Other: None IMPRESSION: Hazy right basilar opacities could reflect developing pneumonia.
[2022-10-19] MEDS ORDERED: NA CHLORIDE 0.9% 100 ML IV ONE (20:10)
--- NOTE | 2022-10-19 21:16 | CON ---
History Of Present Illness: This is a 41-year-old female, I was consulted for bacteremia, urosepsis, and left-sided pyelonephritis. Patient has significant history of ESBL urine infection and pyelonep hritis, coming in with past medical history of diabetes mellitus type 2, hypertension, hyperlipidemia , and left-sided lower abdominal pain with nausea and vomiting and loose bowel movements. Patient wa s recently diagnosed with COVID. Past Medical History: As per HPI. Social History: Nonsmoker, nondrinker. Family History: Noncontributory. Medications: Merrem and vancomycin. See MAR for other medications. Allergies: NO KNOWN DRUG ALLERGIES. Review of Systems: A 10-point review was performed. Physical Examination: General: This is a 41-year-old female lying in bed. Daughter by the bedside, not in any acute cardi opulmonary distress. Vital Signs: Temperature 98, pulse 110, respirations 20, blood pressure 169/84. HEENT: Unremarkable. Neck: Supple. Lungs: Basal crackles. Heart: S1, S2. Regular. Abdomen: Soft. Bowel sounds present. Tenderness on left CVA area noted. Extremities: No edema. Laboratory Data: Shows WBC 7, down from 13.4; hemoglobin 9.3; platelets 463, down from 111. Paid Search Manager ry shows BUN of 24, creatinine 1.39, glucose is 233. Albumin level is 2.9. Micro Data: Urine and b lood cultures showing gram-negative rods. Sensitivity and specificity pending. Assessment And Plan: 1.Urosepsis secondary to gram-negative rods. 2.Bacteremia secondary to gram-negative rods. Recommend to stop vancomycin. Continue meropenem. P atient has clinically improved. 3.Thrombocytopenia most likely secondary to sepsis. 4.Anemia of chronic disease. 5.Diabetes mellitus and neuropathy. 6.Renal insufficiency. 7.Moderate protein-calorie malnourishment. Thank you Dr. Moulton for consult. We will follow the patient closely and monitor patient for signs of infection with WBC and fever trends. NF/MODL Voice ID: [id number] Report ID: [id number]
[2022-10-20] MEDS: HYDROMORPHONE HCL 0.5 MG/0.5 ML INJ IV PRN ×7 (00:18→23:37)
[2022-10-20 06:35] LABS: Absolute Lymphocytes (CBC) 0.7 K/uL (0.7-4.9); Hematocrit 26.9 % (36.0-45.0); Lymphocytes % 7.8 % (15.3-44.8); MCV 76.9 fL (80-100); MPV 10.2 fL (7.6-11.3)
[2022-10-20 06:53] LABS: Potassium 3.1 mmol/L (3.5-5.1)
[2022-10-20] MEDS: NACHLORIDE 0.45% 1,000 ML with NA BICARB 8.4% 75 MEQ IV SCH ×2 (08:04)
[2022-10-20 08:49] LABS: Blood O2 Saturation 95.6 % (92-98.5)
[2022-10-20 08:50] LABS: Arterial Blood Carboxyhemoglob 1.8 % (0-1.5); Blood Gas Oxyhemoglobin 92.5 % (94-97)
[2022-10-20] MEDS ORDERED: CEFEPIME 2 GM VIAL ONE (08:54)
[2022-10-20] MEDS ORDERED: NA CHLORIDE 0.9% 100 ML ONE (08:56)
[2022-10-20] MEDS ORDERED: POTASSIUM CL 40 MEQ in NA CHLORIDE 0.9% 500 ML IV SCH (09:00)
[2022-10-20] MEDS: TAMSULOSIN 0.4 MG SR CAP PO SCH ×2 (09:00→20:21)
[2022-10-20] MEDS: SODIUM BICARB 325 MG TAB PO SCH ×4 (09:00→20:21)
[2022-10-20] MEDS: CEFEPIME 2 GM in NA CHLORIDE 0.9% 100 ML IV SCH ×2 (09:01→20:21)
[2022-10-20] MEDS: INSULIN -REGULAR HUMAN 50 UNIT/0.5 ML ML SQ SCH ×2 (09:02→12:31)
[2022-10-20 09:04] LABS: Platelet Estimate DECR; Toxic Granulation NOTED; White Blood Cell Scan OK (OK)
[2022-10-20 09:05] LABS: Blood Morphology Comment NOT SEEN (NOT SEEN); Dohle Bodies NOTED
[2022-10-20] MEDS: ACETAMINOPHEN 500 MG TAB PO PRN (10:33)
--- NOTE | 2022-10-20 12:46 | P.PN ---
Subjective Date of Service: 10/20/22 Primary Care Provider: None Chief Complaint: Abdominal Pain Ms. Tati White is Tajik-speaking only. The following history was obtained with the assistance of [employer] certified Tajik-Sudanese fire prevention captain, Ms. Carney, (ID# [id number]). Overnight, she did not spike any fevers, but has remained tachycardic and tachypneic. This morning, her bicarbonate level was 12 and she had an anion gap of 22. STAT lactate was 1.0. Acetone level is elevated. She was eating yesterday, so seems unlikely to be starvation ketoacidosis. At this time, suspect euglycemic diabetic ketoacidosis - she denies taking any SGLT-2 inhibitors at home. Will transfer to ICU for insulin drip. Her blood cultures have returned positive for Escherichia Coli - not ESBL. Meropenem switched to Cefepime. She reports that her flank pain is slightly better compared to yesterday. She reports chills, dysuria, and night sweats. Review of Systems 10-point ROS is otherwise unremarkable General: Fever, Chills, Sweats Genitourinary: Dysuria Musculoskeletal: Back Pain (left flank) Physical Examination - Vital Signs Temperature: 98.6 F Blood Pressure: 141/77 Pulse: 115 Respirations: 16 Pulse Ox (%): 98 - Studies Microbiology Data (last 24 hrs): 10/18/22 12:42 Clean Catch Urine [place] Count - Final >100,000 CFU/ML. 10/18/22 12:42 Clean Catch Urine - Final Escherichia Coli 10/18/22 12:06 Blood - Blood Aerobic Blood Culture - Final Escherichia Coli 10/18/22 12:06 Blood - Blood Blood Culture Gram Stain - Final 10/18/22 12:06 Blood - Blood Anaerobic Blood Culture - Final Escherichia Coli 10/18/22 12:06 Blood - Blood Gram Stain - Final 10/18/22 12:38 Blood - Blood Aerobic Blood Culture - Final Escherichia Coli 10/18/22 12:38 Blood - Blood Blood Culture Gram Stain - Final 10/18/22 12:38 Blood - Blood Anaerobic Blood Culture - Final Escherichia Coli 10/18/22 12:38 Blood - Blood Gram Stain - Final Assessment And Plan - Plan - Physical Exam General: Alert, Oriented x3, Mild distress HEENT: Atraumatic, Mucous membr. moist/pink, EOMI, Sclerae nonicteric Neck: JVD not distended Respiratory: Tachypneic. Clear to auscultation bilaterally, Normal air movement Cardiovascular: No edema, Normal S1 S2, No gallops, No rubs, No murmurs, Other (tachycardic) Gastrointestinal: Normal bowel sounds, Soft and benign, Non-distended, No rebound, No guarding, Tenderness (mid-left abdomen) Musculoskeletal: No clubbing, Other (left CVA tenderness) Integumentary: No rashes Neurological: Normal speech, Cranial nerves 3-12 intact, Normal affect # Severe Sepsis likely secondary to Acute Escherichia Coli Pyelonephritis with Escherichia Coli Bacteremia # Mild Left Hydronephrosis # Thrombocytopenia secondary to Sepsis # History of ESBL Urinary Tract Infections She met criteria based on temperature > 100.9 F, HR > 90 bpm, RR > 20 breaths/min, WBC > 12,000, and the source is urinary. Severe sepsis is suspected due to concern for tissue hypoperfusion/organ dysfunction based on platelet count < 100,000 and lactic acid > 2 mmol/L. - Infectious Diseases consulted and spoke with Dr. Almanzar - recommendations appreciated - Urology consulted and spoke with Dr. Durand - recommendations appreciated - No intervention yesterday was required - he recommended repeat CT abdomen/pelvis today to decide if urologic intervention is required - CT abdomen/pelvis = "enlarged, edematous left kidney with mild hydronephrosis present down to the UVJ level. No obstructing or nonobstructing calculi present. Based on the prior imaging events, acute pyelonephritis of the left kidney would be suspected. The hydronephrosis could be due to blood or inflammatory debris within the left collecting system. Left-sided findings due to recently passed kidney stone are possible but felt to be lesser likelihood given the collective findings and prior study. Correlation is needed with clinical and laboratory findings of acute pyelonephritis. No right abnormality seen. Right-sided isodense masses and pyelonephritis are not excluded. Full assessment is limited is the absence of IV contrast." - Sepsis order set was initiated - Lactate: 3.9 -> 3.1 -> 1.0 - Procalcitonin = 74.54 - Blood cultures drawn before antibiotics were given - Broad spectrum antibiotics started: Meropenem -> Cefepime - In regards to fluids: - 30 mL/kg of IV fluids was given based on patient's actual body weight - Continue NS + D5W @ 125 mL/hr # Suspected Euglycemic Diabetic Ketoacidosis in Type II Diabetes Mellitus Possibly triggered by severe sepsis. - Evaluation thus far: - POCT glucose = 235 - Potassium = 3.1 - ABG = pH 7.317, PCO2 = 19.7 - Bicarbonate = 12 AGAP = 22 Ketones = large Hgb A1c = 12.6 % - Management plan: - Fluids: - D5W + 0.9% Normal Saline - Insulin: - Insulin regular drip titrated at 0.02 - 0.05 unit/kg/hr - Potassium replacement: - Serum K < 3.3 -> Hold insulin, and give 20-40 mEq per hour until K >3.3 - Bicarbonate: Replace per Nephrology - q4hr BMP, Mg, Phos # KDIGO Stage III Acute Kidney Injury likely due to above - Consulted Nephrology and spoke with Dr. Apple - recommendations appreciated - Creatinine = 1.89 -> 1.39 -> 1.22 (baseline creatinine ~0.4-0.6) - Urinalysis = 2+ glucose, 3+ ketones, 2+ blood, trace leukocyte esterase, 11-20 RBCs, >50 WBCs, 2+ protein - IV fluids as mentioned above - Monitor creatinine and urine output - If worsening, obtain renal ultrasound - Renally dose medications # Concern for COVID-19 Pneumonia - Denies any respiratory symptoms - Chest x-ray = "Hazy right basilar opacities could reflect developing pneumonia" - Ordered CT chest - Encouraged incentive spirometry # Hypertension - Hole home medications due to concern for sepsis Arnie Moulton M.D.
[2022-10-20] MEDS ORDERED: Magnesium Sulfate 2gm IVPB 2 G/50 ML BAG IV ONE (13:00)
[2022-10-20 13:38] LABS: Magnesium 2.8 mg/dL (1.6-2.4); Phosphorus 2.3 mg/dL (2.5-4.9); Potassium 3.4 mmol/L (3.5-5.1)
[2022-10-20] MEDS: INSULIN -REGULAR HUMAN 100 UNIT in NA CHLORIDE 0.9% 100 ML IV SCH (13:56)
--- NOTE | 2022-10-20 13:58 | RAD REPORT ---
EXAM DESCRIPTION: CT - Chest Abd Pelvis Wo Con - 10/20/2022 1:34 pm CLINICAL HISTORY: Chest and abdomen pain. PNA on CXR COMPARISON: Chest Single View dated 10/19/2022; Abdomen Pelvis Wo Contrast dated 10/18/2022 TECHNIQUE: Limited noncontrast study was performed. All CT scans are performed using dose optimization technique as appropriate and may include automated exposure control or mA/KV adjustment according to patient size. FINDINGS: Hazy opacity is present in the left lung base which may represent mild atelectasis or byron y infiltrate.Trace pleural fluid, larger on the left.No intrathoracic adenopathy. The liver, spleen, pancreas, adrenal glands and right kidney are within normal limits. The left kidne y appears is enlarged with surrounding inflammation present. Mild inflammation is seen left lower mayco drant. No bowel obstruction, free air, free fluid or abscess. Normal appendix. No pathologic lymphadenopath y in the abdomen or pelvis. No worrisome osseous finding. IMPRESSION: Hazy linear opacities in left lung base probably represent atelectasis rather than pneum onia.Trace pleural fluid. Significantly enlarged kidney, incompletely assessed on noncontrast study. Findings favor infection/p yelonephritis and appear slightly progressive relative to comparative study.
[2022-10-20] MEDS: D5 0.9 NS 1,000 ML IV SCH ×2 (14:00→19:35)
[2022-10-20] MEDS ORDERED: ALBUTEROL 2.5 MG/3 ML NEB SOL ONE (15:40)
[2022-10-20] MEDS ORDERED: NA CHLORIDE 0.9% 500 ML ONE (15:40)
[2022-10-20] MEDS ORDERED: propofoL 200 MG/20 ML VIAL IV ONE (15:43)
[2022-10-20] MEDS ORDERED: MIDAZOLAM HCL 2 MG/2 ML INJ ONE (15:43)
[2022-10-20] MEDS ORDERED: FENTANYL CITR 100 MCG/2 ML ONE (15:43)
[2022-10-20] MEDS ORDERED: LIDOCAINE 1% MPF 5 ML VIAL ONE (15:43)
[2022-10-20] MEDS ORDERED: dexAMETHasone 10 MG/ML VIAL ONE (15:44)
[2022-10-20] MEDS ORDERED: ONDANSETRON 4 MG/2 ML VIAL ONE (15:44)
--- NOTE | 2022-10-20 16:01 | RAD REPORT ---
EXAM DESCRIPTION: CTAbdomen Pelvis W Contrast - 10/20/2022 3:30 pm CLINICAL HISTORY: Abdominal pain. evaluate for renal abscess COMPARISON: Abdomen Pelvis W Contrast dated 10/21/2020; Abdomen Pelvis W Contrast dated 10/17/2020; Abdomen Pelvis W Contrast dated 09/11/2020; Abdomen Pelvis W Contrast dated 10/26/2019; Chest Abd Pelvis Wo Con dated 10/20/2022 TECHNIQUE: Biphasic CT imaging of the abdomen and pelvis was performed with 100 ml non-ionic IV cont rast. All CT scans are performed using dose optimization technique as appropriate and may include automated exposure control or mA/KV adjustment according to patient size. FINDINGS: Mild linear atelectasis is present in the left lung base. Small left pleural effusion. Mild fatty liver is present. Gallbladder is distended. The spleen, pancreas and adrenal glands are no rmal. The right kidney appears normal. The left kidney is abnormally enlarged with striations and nephrogram present. Left kidney shows sign ificant delay in function with no excretion seen on delayed phase. Hydronephrosis is not seen. No ulba al abscess. Small volume free fluid is seen in the pelvis. No bowel obstruction is present. Normal appendix. No evidence of significant lymphadenopathy. No suspicious bony findings. IMPRESSION: The left kidney is significantly enlarged in size. There is somewhat striated nephrogram suggesting infection is present. There is no abscess. There is significant delay however in left renal function evident with delay in the nephrogram phase as well as no evidence of significant contrast excretion on the delayed sequence .
[2022-10-20] MEDS ORDERED: Mastisol Adhesive Liq ONE (16:41)
--- NOTE | 2022-10-20 17:07 | P.CNS ---
Date of Consult: 10/20/22 Reason for Consult: Left hydronephrosis and pyelonephritic sepsis Requesting Physician: Arnie Moulton Primary Care Provider: None Chief Complaint: Abdominal Pain History of Present Illness: 41-year-old poorly controlled diabetic with a history of recurrent urinary tract infections presents with severe left lower quadrant and flank pain associated with fever and chills for the last week. About 3 days prior to that, she had dysuria. The pain and fever eventually progressed to involve nausea and vomiting, and she presented via the emergency department for evaluation. Her history of recurrent UTIs included as many as 5 or 6 a year. Since the course of her admission, where she has been treated with vancomycin and meropenem because of an initial gram stain that suggested gram-positive cocci, her sympto ms have not significantly improved, and she now has progressed to include a metabolic acidosis. She has been placed on an insulin drip to gain more optimal glucose control. CT abdomen pelvis performed on admission revealed an edematous/swollen daily with perinephric and periureteral stranding associated with mild hydronephrosis extending down the ureter to the level of the UVJ. No obstructing calculus was noted. With progression of her symptomatology as well as the presence of COVID-19, her tachypnea eventually required repeat CT of her chest, and the abdomen was also surveyed. CT chest and abdomen without contrast revealed persistent/worsening edematous swelling of the left kidney and persistent mild hydroureteronephrosis. Given the patchy appearance of the renal parenchyma observed on the noncontrast scan, I then recommended an IV contrast CT to assess for nephric or perinephric abscess. CT abdomen and pelvis with IV contrast and venous phase 5-minute delay scan revealed absence of any significant nephrogram or contrast drainage into the collecting system. No definitive abscess was seen but there was persistence of the hydroureteronephrosis. Medications and labs reviewed No known drug allergies Examination: In acute distress, well-developed, well-nourished, slightly obese Tachypneic Alert, awake, oriented Abdomen soft Seated within a stretcher but able to move all extremities Labs reviewed Assessment and recommendation: 41-year-old poorly controlled diabetic with recurrent UTIs now with pyelonephritic sepsis and mild left hydronephrosis. -Cystoscopy and left ureteral stent placement recommended to maximize decompression of her left collecting system and assist in resolution of her severe infection in the absence of an abscess that would merit percutaneous drainage. -Patient seen and counseled on the risks and benefits of placement of the stent and consent signed at bedside. 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
--- NOTE | 2022-10-20 17:10 | RAD REPORT ---
EXAM DESCRIPTION: RAD - Fluoroscopy <1 Hour - 10/20/2022 4:57 pm CLINICAL HISTORY: CYSTO LEFT STENT COMPARISON: <Comparisons> FINDINGS: Fluoroscopy time: 0.2 minutes
[2022-10-20] MEDS ORDERED: NA CHLORIDE 0.9% 1,000 ML ONE (17:24)
[2022-10-20 18:41] LABS: BUN Blood Urea Nitrogen 23 mg/dL (7-18); Glomerular Filtration Rate 59 ml/min (=/>90); Glucose Level 222 mg/dL (74-106); Magnesium 2.6 mg/dL (1.6-2.4); Phosphorus 2.6 mg/dL (2.5-4.9); Sodium Level 135 mmol/L (136-145)
[2022-10-20 18:44] LABS: Bicarbonate 12 mmol/L (21-32)
[2022-10-20] MEDS: ONDANSETRON 4 MG/2 ML VIAL IV PRN (19:40)
--- NOTE | 2022-10-20 21:25 | OP ---
Surgeon: MANE BRAVO Preoperative Diagnoses: 1.Escherichia coli sepsis. 2.Left pyelonephritis. 3.Left hydroureteronephrosis. Postoperative Diagnoses: 1.Escherichia coli sepsis. 2.Left pyelonephritis. 3.Left hydroureteronephrosis. 4.Left pyonephrosis. Principle Procedures: 1.Cystoscopy. 2.Left retrograde pyelography. 3.Left ureteral stent placement. Indication For Procedure: Ms. Flaherty is a 41-year-old woman with poorly controlled diabetes and a h istory of recurrent urinary tract infections, admitted with pyelonephritic sepsis secondary to an E c dioni UTI with associated left hydroureteronephrosis. I recommended stent placement to maximize decomp ression of her system and encourage resolution. I counseled the patient preoperatively that if her s ituation did not improve significantly with antibiotics and decompression, in very rare circumstances , nephrectomy may be required. Procedure In Detail: The patient was consented in the preoperative holding area before being transfe rred to the operative suite where general anesthesia was induced. She was given antimicrobial therap y on the floor, so no additional antimicrobial prophylaxis was provided. Pneumoboots were provided f or DVT prophylaxis. She was placed in the lithotomy position, padded and secured appropriately. Her genitalia were prepped with Hibiclens and she was draped in standard fashion. The case was begun us ing a 22-Central African rigid cystoscope to traverse the urethra and into her bladder with ease. The bladder was surveyed, and there was evidence of chronic cystitis throughout. The ureteral orifices were ort hotopic in location and so the left ureteral orifice was cannulated using the tip of the Sensor wire and a 5-Central African ureteral access catheter. A retrograde pyelogram was then performed. Left retrograde pyelography: Using a 70:30 mixture of Omnipaque and saline, contrast was injected vi a the lumen of the 5-Central African ureteral access catheter and did propagate up a relatively nondilated dis moe into the mid ureter before delayed transit of the contrast was noted in the proximal ureter befor e entering the collecting system where it only partially sealed the pelvis and the upper pole calyx i n a patchy fashion likely due to purulent component within. As a result, no further attempts to opac emerson the collecting system were made, and I passed a Sensor wire via the 5-Central African ureteral access cath eter and coiled it in the upper pole as observed fluoroscopically. I removed the 5-Central African ureteral a ccess catheter, and over the Sensor wire, I passed a 7-Central African x 26 cm double-J ureteral stent left on its tether. The stent was observed to coil fluoroscopically within the upper pole/pelvis of the annita lama and an additional coil was formed within her bladder. There was immediate purulent drainage from the kidney that emanated from the stent, and some of that urine was collected and sent for culture. I then removed the cystoscope and placed an 18-Central African catheter into her bladder with ease, placing 10 cc of saline in the balloon. The catheter was placed to gravity drainage, and the tether of the bethel nt was secured using Steri-Strips to the catheter for use of subsequent removal. The patient was the n taken out of the lithotomy position, awakened from general anesthesia, transferred to a stretcher, and then transferred to the recovery room in good condition. Complications: None. Discharge Disposition: The catheter and the stent should remain in place until the patient clinicall y improves. Once she is well enough to have the urethral Stark catheter removed, the stent attached to the catheter may be removed simultaneously. Should the patient fail to improve clinically over th e course of the next 48 to 72 hours, repeat imaging would be recommended with an ultrasound unless a CT scan is being performed for some other reason, to assess for development of an abscess of the esperanza burris. Otherwise, with clinical improvement, I would recommend switching to Cipro or Levaquin for antic ipated transition to discharge with at least an additional 14 days of therapy. Subsequently, she laura uld follow up with me/Urology as an outpatient to evaluate the source of her recurrent infection. Of note, she had a cystocele, grade 2, which potenti ally could be contributive. WR/MODL Voice ID: [id number] Report ID: [id number]
[2022-10-21 01:23] LABS: BUN Blood Urea Nitrogen 20 mg/dL (7-18); Bicarbonate 18 mmol/L (21-32); Glomerular Filtration Rate 61 ml/min (=/>90); Glucose Level 178 mg/dL (74-106); Magnesium 2.2 mg/dL (1.6-2.4); Phosphorus 1.4 mg/dL (2.5-4.9); Sodium Level 135 mmol/L (136-145)
[2022-10-21 01:25] LABS: Potassium 2.8 mmol/L (3.5-5.1)
[2022-10-21] MEDS ORDERED: POTASSIUM PHOS IN 0.9 % NACL 15 MMOL/250 ML BAG IV ONE (01:27)
[2022-10-21] MEDS: KCL 20 MEQ/100 mL IVPB 20 MEQ/100 ML BAG IV SCH ×2 (01:35→03:08)
[2022-10-21] MEDS: ONDANSETRON 4 MG/2 ML VIAL IV PRN (03:08)
[2022-10-21] MEDS: BENZONATATE 100 MG CAP PO PRN ×3 (03:31→22:54)
[2022-10-21] MEDS: HYDROMORPHONE HCL 0.5 MG/0.5 ML INJ IV PRN ×5 (03:32→22:54)
[2022-10-21] MEDS ORDERED: ALBUTEROL 2.5 MG/3 ML NEB SOL NEB ONE (04:19)
[2022-10-21] MEDS: D5 0.9 NS 1,000 ML IV SCH (05:00)
[2022-10-21 07:47] LABS: Absolute Lymphocytes (CBC) 0.5 K/uL (0.7-4.9); MCV 74.8 fL (80-100); MPV 10.4 fL (7.6-11.3); RBC Red Blood Cell Count 3.21 M/uL (3.86-4.86)
[2022-10-21] MEDS: CEFEPIME 2 GM in NA CHLORIDE 0.9% 100 ML IV SCH (08:17)
[2022-10-21] MEDS: TAMSULOSIN 0.4 MG SR CAP PO SCH ×2 (08:17→20:39)
[2022-10-21] MEDS: SODIUM BICARB 325 MG TAB PO SCH ×4 (08:18→20:38)
[2022-10-21 09:19] LABS: BUN Blood Urea Nitrogen 17 mg/dL (7-18); Bicarbonate 18 mmol/L (21-32); Glomerular Filtration Rate 66 ml/min (=/>90); Glucose Level 204 mg/dL (74-106); Phosphorus 1.8 mg/dL (2.5-4.9); Potassium 3.2 mmol/L (3.5-5.1); Sodium Level 137 mmol/L (136-145)
--- NOTE | 2022-10-21 09:37 | P.PN ---
Subjective Date of Service: 10/21/22 Primary Care Provider: None Chief Complaint: Abdominal Pain Patient lying in bed lethargy but was able to answer questions accordingly. No signs of cardiopulmonary distress. No major events upon examination Physical Examination - Vital Signs Temperature: 98.8 F Blood Pressure: 131/79 Pulse: 101 Respirations: 20 Pulse Ox (%): 98 - Physical Exam General: In no apparent distress Respiratory: Clear to auscultation bilaterally Cardiovascular: Normal pulses, Normal S1 S2 Gastrointestinal: Normal bowel sounds Musculoskeletal: No swelling Neurological: Normal speech Urinary: Stark catheter (urine tea color and clear) - Studies Current Medications Acetaminophen (Acetaminophen 500 Mg Tab) 500 mg PO Q4HP PRN PRN Reason: Pain scale 2-4 (Mild) Last Admin: 10/20/22 10:33 Dose: 500 mg Benzonatate (Benzonatate 100 Mg Cap) 100 mg PO TID PRN PRN Reason: COUGH Last Admin: 10/21/22 11:17 Dose: 100 mg Ergocalciferol (Drisdol (Vitamin D=Ergocalciferol) 35474 Unit Cap) 50,000 unit PO Q7D ADENIKE Last Admin: 10/21/22 11:36 Dose: 50,000 unit Glucagon (Glucagon 1 Mg/Vial) 1 mg IM 1X PRN; Protocol PRN Reason: HYPOGLYCEMIA Hydromorphone HCl (Hydromorphone Hcl 0.5 Mg/0.5 Ml Inj) 0.5 mg IV Q3HP PRN PRN Reason: Pain scale 8-10 (Severe) Last Admin: 10/21/22 17:59 Dose: 0.5 mg Insulin Human Regular 100 unit (/ Sodium Chloride) 101 mls @ 0 mls/hr IV CONT ADENIKE; Protocol Last Admin: 10/21/22 11:39 Dose: 101 mls Ceftriaxone Sodium 2,000 mg/ (Sodium Chloride) 100 mls @ 200 mls/hr IV Q24H ADENIKE; Protocol Stop: 10/30/22 17:29 Last Admin: 10/21/22 17:47 Dose: 100 mls Dextrose (Dextrose 10% Water Iv Soln.) 125 mls @ 0 mls/hr IV PRN PRN; Protocol PRN Reason: HYPOGLYCEMIA Sodium Chloride (Ns 1000 Ml Ivbag) 1,000 mls @ 75 mls/hr IV .[id number] [facility] Insulin Glargine (Insulin Glargine 100 Unit/Ml) 20 unit SQ 1700 [facility] Last Admin: 10/21/22 17:47 Dose: 20 unit Insulin Human Regular (Insulin -Regular Human 50 Unit/0.5 Ml Ml) 0 unit SQ ACHS [facility]; Protocol Last Admin: 10/21/22 20:46 Dose: Not Given Ondansetron HCl (Ondansetron 4 Mg/2 Ml Vial) 4 mg IV Q6HP PRN PRN Reason: NAUSEA / VOMITING Last Admin: 10/21/22 03:08 Dose: 4 mg Promethazine HCl (Promethazine Inj 25 Mg/Ml Amp) 12.5 mg IV Q6H PRN PRN Reason: NAUSEA / VOMITING Sodium Bicarbonate (Sodium Bicarb 325 Mg Tab) 650 mg PO QID [facility] Last Admin: 10/21/22 20:38 Dose: 650 mg Sodium Chloride (Flush Normal Saline 10 Ml) 10 ml IV BID [facility] Last Admin: 10/21/22 20:39 Dose: 10 ml Tamsulosin HCl (Tamsulosin 0.4 Mg Sr Cap) 0.4 mg PO BID [facility] Last Admin: 10/21/22 20:39 Dose: 0.4 mg Microbiology 10/18/22 12:42 Clean Catch Urine [place] Count - Final >100,000 CFU/ML. 10/18/22 12:42 Clean Catch Urine - Final Escherichia Coli 10/18/22 12:06 Blood - Blood Aerobic Blood Culture - Final Escherichia Coli 10/18/22 12:06 Blood - Blood Blood Culture Gram Stain - Final 10/18/22 12:06 Blood - Blood Anaerobic Blood Culture - Final Escherichia Coli 10/18/22 12:06 Blood - Blood Gram Stain - Final 10/18/22 12:38 Blood - Blood Aerobic Blood Culture - Final Escherichia Coli 10/18/22 12:38 Blood - Blood Blood Culture Gram Stain - Final 10/18/22 12:38 Blood - Blood Anaerobic Blood Culture - Final Escherichia Coli 10/18/22 12:38 Blood - Blood Gram Stain - Final Assessment And Plan - Current Problems (Diagnosis) (1) E coli bacteremia Current Visit: No Status: Acute Plan: - 10/21 Antibiotics switched from Cefepime to Rocephin today, day 1. - WBC: Normal today and will keep monitoring the trend - 10/18 Blood and Urine culture: Positive with E. Coli - 10/19 BC: No growth and Urine culture is pending (2) Acute pyelonephritis Current Visit: No Status: Acute Plan: Nephrology onboard and following the patient. - Plan - Thrombocytopenia: Most likely secondary to sepsis - Diabetes mellitus and neuropathy: Managed with insulin by primary team - Renal insufficiency: Nephrology onboard and follow the patient - Moderate protein calorie malnourishment: Patient albumin is low and recommend supplemental protein drinks to support nutrition and immunity - Will continue to follow the patient closely and keep monitoring the signs of infection with fever and WBC trends Case has been discussed with Dr. Almanzar, N Physician Review: Patient Assessed, Agree with Above Assessment and Plan
[2022-10-21 10:03] LABS: Blood Morphology Comment NOTED (NOT SEEN); Dohle Bodies PRESENT; Platelet Estimate DECR; Rouleau SLIGHT
[2022-10-21 10:05] LABS: Toxic Granulation 1+
[2022-10-21] MEDS ORDERED: POTASSIUM CL SA 10 MEQ TAB PO ONE ×2 (10:17→19:16)
[2022-10-21] MEDS ORDERED: DRISDOL (VITAMIN D=ERGOCALCIFEROL) 50000 UNIT CAP PO SCH (11:00)
[2022-10-21] MEDS: POTASS/SODIUM PHOSPHATE 1 PKT POWD.PACK PO SCH ×3 (11:35→13:39)
[2022-10-21] MEDS: INSULIN -REGULAR HUMAN 100 UNIT in NA CHLORIDE 0.9% 100 ML IV SCH (11:39)
[2022-10-21] MEDS ORDERED: D5 0.9 NS 1,000 ML IV SCH (12:00)
[2022-10-21 13:56] LABS: BUN Blood Urea Nitrogen 15 mg/dL (7-18); Bicarbonate 20 mmol/L (21-32); Glomerular Filtration Rate 74 ml/min (=/>90); Glucose Level 181 mg/dL (74-106); Magnesium 1.8 mg/dL (1.6-2.4); Phosphorus 1.4 mg/dL (2.5-4.9); Potassium 3.1 mmol/L (3.5-5.1); Sodium Level 136 mmol/L (136-145)
--- NOTE | 2022-10-21 16:28 | EKG ---
Test Date: 2022-10-20 Test Time: 14:27:00 Astrochemist: RIGO MEASUREMENT RESULTS: Intervals: Rate: 97 CO: 120 QRSD: 86 QT: 354 QTc: 449 [place]: P: 30 CO: 120 QRS: 20 T: 17 INTERPRETIVE STATEMENTS: Normal sinus rhythm Normal ECG No previous ECG available for comparison Electronically Signed On 10-21-22 16:26:48 SCIENTIFIC PROGRAMMER by Sawyer Velazquez
--- NOTE | 2022-10-21 16:31 | EKG ---
Test Date: 2022-10-19 Test Time: 16:52:34 Services Engineer: ELISSA MEASUREMENT RESULTS: Intervals: Rate: 121 [place]: 120 QRSD: 70 QT: 276 QTc: 391 [place]: P: 65 NH: 120 QRS: 48 T: 35 INTERPRETIVE STATEMENTS: Sinus tachycardia Otherwise normal ECG No previous ECG available for comparison Electronically Signed On 10-21-22 16:28:15 DATA SCIENCE AND IOT MANAGER by Sawyer Velazquez
--- NOTE | 2022-10-21 16:34 | EKG ---
Test Date: 2022-10-18 Test Time: 12:53:25 Form Setter Supervisor: TICO MEASUREMENT RESULTS: Intervals: Rate: 106 FL: 122 QRSD: 74 QT: 328 QTc: 435 [place]: P: 65 FL: 122 QRS: 36 T: 39 INTERPRETIVE STATEMENTS: Sinus tachycardia Otherwise normal ECG No previous ECG available for comparison Electronically Signed On 10-21-22 16:29:06 DIRECTOR OF PUPIL PERSONNEL PROGRAM by Sawyer Velazquez
[2022-10-21] MEDS: CEFTRIAXONE 2,000 MG in NA CHLORIDE 0.9% 100 ML IV SCH (17:47)
[2022-10-21] MEDS: INSULIN GLARGINE 100 UNIT/ML SQ SCH (17:47)
[2022-10-21] MEDS ORDERED: GLUCAGON 1 MG/VIAL IM PRN (20:36)
[2022-10-21] MEDS ORDERED: D50W 25 GM/50 ML SYRINGE IV PRN (20:36)
[2022-10-21] MEDS ORDERED: D10W 125 ML IV PRN (20:38)
[2022-10-21] MEDS: INSULIN -REGULAR HUMAN 50 UNIT/0.5 ML ML SQ SCH (20:46)
--- NOTE | 2022-10-21 21:15 | P.PN ---
Date of Service: 10/21/22 Vital Signs Temp Pulse Resp BP Pulse Ox 98.6 F 114 H 22 H 154/77 H 95 10/21/22 16:00 10/21/22 18:00 10/21/22 18:00 10/21/22 18:00 10/21/22 18:00 Medications Acetaminophen (Acetaminophen 500 Mg Tab) 500 mg PO Q4HP PRN PRN Reason: Pain scale 2-4 (Mild) Last Admin: 10/20/22 10:33 Dose: 500 mg Benzonatate (Benzonatate 100 Mg Cap) 100 mg PO TID PRN PRN Reason: COUGH Last Admin: 10/21/22 11:17 Dose: 100 mg Ergocalciferol (Drisdol (Vitamin D=Ergocalciferol) 08735 Unit Cap) 50,000 unit PO Q7D [facility] Last Admin: 10/21/22 11:36 Dose: 50,000 unit Glucagon (Glucagon 1 Mg/Vial) 1 mg IM 1X PRN; Protocol PRN Reason: HYPOGLYCEMIA Hydromorphone HCl (Hydromorphone Hcl 0.5 Mg/0.5 Ml Inj) 0.5 mg IV Q3HP PRN PRN Reason: Pain scale 8-10 (Severe) Last Admin: 10/21/22 17:59 Dose: 0.5 mg Insulin Human Regular 100 unit (/ Sodium Chloride) 101 mls @ 0 mls/hr IV CONT [facility]; Protocol Last Admin: 10/21/22 11:39 Dose: 101 mls Ceftriaxone Sodium 2,000 mg/ (Sodium Chloride) 100 mls @ 200 mls/hr IV Q24H [facility]; Protocol Stop: 10/30/22 17:29 Last Admin: 10/21/22 17:47 Dose: 100 mls Dextrose (Dextrose 10% Water Iv Soln.) 125 mls @ 0 mls/hr IV PRN PRN; Protocol PRN Reason: HYPOGLYCEMIA Insulin Glargine (Insulin Glargine 100 Unit/Ml) 20 unit SQ 1700 [facility] Last Admin: 10/21/22 17:47 Dose: 20 unit Insulin Human Regular (Insulin -Regular Human 50 Unit/0.5 Ml Ml) 0 unit SQ ACHS [facility]; Protocol Last Admin: 10/21/22 20:46 Dose: Not Given Ondansetron HCl (Ondansetron 4 Mg/2 Ml Vial) 4 mg IV Q6HP PRN PRN Reason: NAUSEA / VOMITING Last Admin: 10/21/22 03:08 Dose: 4 mg Promethazine HCl (Promethazine Inj 25 Mg/Ml Amp) 12.5 mg IV Q6H PRN PRN Reason: NAUSEA / VOMITING Sodium Bicarbonate (Sodium Bicarb 325 Mg Tab) 650 mg PO QID [facility] Last Admin: 10/21/22 20:38 Dose: 650 mg Sodium Chloride (Flush Normal Saline 10 Ml) 10 ml IV BID [facility] Last Admin: 10/21/22 20:39 Dose: 10 ml Tamsulosin HCl (Tamsulosin 0.4 Mg Sr Cap) 0.4 mg PO BID [facility] Last Admin: 10/21/22 20:39 Dose: 0.4 mg Microbiology Results 10/18/22 12:42 Clean Catch Urine [place] Count - Final >100,000 CFU/ML. 10/18/22 12:42 Clean Catch Urine - Final Escherichia Coli 10/18/22 12:06 Blood - Blood Aerobic Blood Culture - Final Escherichia Coli 10/18/22 12:06 Blood - Blood Blood Culture Gram Stain - Final 10/18/22 12:06 Blood - Blood Anaerobic Blood Culture - Final Escherichia Coli 10/18/22 12:06 Blood - Blood Gram Stain - Final 10/18/22 12:38 Blood - Blood Aerobic Blood Culture - Final Escherichia Coli 10/18/22 12:38 Blood - Blood Blood Culture Gram Stain - Final 10/18/22 12:38 Blood - Blood Anaerobic Blood Culture - Final Escherichia Coli 10/18/22 12:38 Blood - Blood Gram Stain - Final Assessment/ Plan: Nephrology No dyspnea No chest pain Left ureter stent placement yesterday by urology No acute events overnight Vitals, medications, blood work and imaging reviewed in the chart. General: Oriented x3, Cooperative HEENT: Atraumatic Neck: Supple Respiratory: Clear to auscultation bilaterally Cardiovascular: No edema, Regular rate/rhythm Gastrointestinal: Tenderness, Guarding Musculoskeletal: No clubbing, No contractures Integumentary: No rashes, No cyanosis Neurological: Normal speech Laboratory Data (last 24 hrs) 10/18/22 12:38: Sodium 132 L, Potassium 3.6, BUN 26 H, Creatinine 1.89 H, Glucose 336 H, Phosphorus 5.0 H, Magnesium 1.8, Total Bilirubin 0.6, AST 53 H, ALT 25, Alkaline Phosphatase 114, Lipase 32 L 10/18/22 12:38: WBC 13.40 H, Hgb 11.6 L, Hct 36.4, Plt Count 111 L Imagings Data: EXAM DESCRIPTION: CT - Abdomen Pelvis Wo Contrast - 10/18/2022 1:32 pm CLINICAL HISTORY: hx of pyelonephritis COMPARISON: Abdomen Pelvis W Contrast dated 10/21/2020 TECHNIQUE: Axial [address] imaging of the abdomen and pelvis was performed without IV contrast. No IV contrast was given because of allergy, abnormal renal function, patient refusal or physician request. No oral contrast administered. All CT scans are performed using dose optimization technique as appropriate and may include automated exposure control or mA/KV adjustment according to patient size. FINDINGS: Trace amount of pleural fluid noted on the left. No cardiomegaly or pericardial effusion. Liver has a very pronounced fatty infiltration pattern with no focal liver lesions seen on noncontrast imaging. Spleen and pancreas show no suspicious findings. Gallbladder and biliary tree are also without suspicious finding. No acute right-sided finding identified. The left kidney is enlarged relative to the right and edematous in appearance. There is perinephric stranding present. Mild left-sided hydronephrosis is present with stranding in the periureteral fat down to the UVJ. There is no obstructing calculus in the left ureter. No nonobstructing left-sided calculi seen. Partially filled urinary bladder shows no wall thickening or edema to be evident. No bladder calculi. No significant adrenal finding. Isodense masses are not excluded. Left sided pyelonephritis is a primary consideration. The 2020 study showed extensive bilateral pyelonephritis changes. A more mild pyelonephritis of the right kidney cannot be excluded. The right-sided hydronephrosis could be due to blood or inflammatory debris within the collecting system. No dilated bowel loops or bowel wall thickening. No appendicitis findings. No free air, free fluid or inflammatory stranding. No hernia, mass or bulky lymphadenopathy. No suspicious bony findings. IMPRESSION: Enlarged, edematous left kidney with mild hydronephrosis present down to the UVJ level. No obstructing or nonobstructing calculi present. Based on the prior imaging events, acute pyelonephritis of the left kidney would be suspected. The hydronephrosis could be due to blood or inflammatory debris within the left collecting system. Left-sided findings due to recently passed kidney stone are possible but felt to be lesser likelihood given the collective findings and prior study. Correlation is needed with clinical and laboratory findings of acute pyelonephritis. No right abnormality seen. Right-sided isodense masses and pyelonephritis are not excluded. Full assessment is limited is the absence of IV contrast. Conclusions/Impression: Stage III JOHN in the setting of left pyelonephritis/ hydronephrosis Proteinuria -No NSAIDs -Reduce IVF Hypokalemia -Replete as ordered HypoPO4 -Replete as ordered Left pyelonephritis with left hydronephrosis Sepsis in the setting of pyelonephritis -Continue IVF -Continue Abx -Continue Flomax BID Hyponatremia in the setting of hyperglycemia -Continue IVF with NS -Encourage nutrition Acidosis -Continue oral bicarb DM II with hyperglycemia -RISS Hypoalbuminemia -Encourage nutrition Anemia in chronic illness Iron Deficiency 3.1% Thrombocytopenia -Monitor CBC -Consider IV iron as infection improves Case reviewed with Dr. Ríos
[2022-10-21] MEDS: NA CHLORIDE 0.9% 1,000 ML IV SCH (22:27)
[2022-10-22] MEDS: HYDROMORPHONE HCL 0.5 MG/0.5 ML INJ IV PRN ×4 (04:11→22:44)
[2022-10-22 06:31] LABS: Absolute Lymphocytes (CBC) 0.6 K/uL (0.7-4.9); Hematocrit 24.5 % (36.0-45.0); Lymphocytes % 9.9 % (15.3-44.8); MCV 75.4 fL (80-100); MPV 10.1 fL (7.6-11.3); RBC Red Blood Cell Count 3.25 M/uL (3.86-4.86)
[2022-10-22 06:39] LABS: Albumin 1.4 g/dL (3.4-5.0); Bilirubin Total 0.4 mg/dL (0.2-1.0); Magnesium 1.7 mg/dL (1.6-2.4); Phosphorus 1.7 mg/dL (2.5-4.9); Potassium 3.3 mmol/L (3.5-5.1); Protein, Total 5.6 g/dL (6.4-8.2); Uric Acid 4.4 mg/dL (2.6-6.0)
[2022-10-22 07:02] LABS: Specific Gravity 1.008 (1.005-1.030); Urine Bacteria None Seen /HPF (<20); Urine Bilirubin NEGATIVE (Negative); Urine Blood 3+ (Negative); Urine Clarity Clear (Clear); Urine Color Colorless (Yellow); Urine Glucose 4+ (Over) (Negative); Urine Mucus Slight /HPF (None Seen); Urine Protein 1+ (Negative); Urine RBC >50 /HPF (None Seen); Urine Urobilinogen Normal (Normal); Urine pH 6.5 (5.0-7.0)
[2022-10-22 07:29] LABS: UR PROTEIN 81.9 mg/dL (<11.9)
[2022-10-22 07:39] LABS: UR CREAT < 18.0 mg/dL (20-320)
[2022-10-22] MEDS: SODIUM BICARB 325 MG TAB PO SCH ×4 (08:50→20:19)
[2022-10-22] MEDS: TAMSULOSIN 0.4 MG SR CAP PO SCH ×2 (08:50→20:19)
[2022-10-22] MEDS: INSULIN -REGULAR HUMAN 50 UNIT/0.5 ML ML SQ SCH ×4 (08:51→21:02)
[2022-10-22] MEDS ORDERED: MAGNESIUM SULFATE 1 gm IVPB 1 GM/100 ML BAG IV ONE (09:00)
[2022-10-22] MEDS ORDERED: POTASSIUM CL SA 10 MEQ TAB PO ONE (09:00)
--- NOTE | 2022-10-22 09:52 | P.PN ---
Subjective Date of Service: 10/22/22 Primary Care Provider: None Chief Complaint: Abdominal Pain Patient lying in bed alert and drinking apple juice with no signs of cardiopulmonary distress. No major events upon examination Physical Examination - Vital Signs Temperature: 98.0 F Blood Pressure: 131/78 Pulse: 100 Respirations: 27 Pulse Ox (%): 100 - Physical Exam General: Alert, In no apparent distress, Oriented x3 Respiratory: Clear to auscultation bilaterally Cardiovascular: No edema, Normal pulses, Normal S1 S2 Gastrointestinal: Normal bowel sounds Musculoskeletal: No swelling, No tenderness Integumentary: No breakdown Neurological: Normal speech, Normal affect Urinary: Stark catheter (Urine yellow and clear) - Studies Current Medications: Acetaminophen (Acetaminophen 500 Mg Tab) 500 mg PO Q4HP PRN PRN Reason: Pain scale 2-4 (Mild) Last Admin: 10/20/22 10:33 Dose: 500 mg Benzonatate (Benzonatate 100 Mg Cap) 100 mg PO TID PRN PRN Reason: COUGH Last Admin: 10/21/22 22:54 Dose: 100 mg Ergocalciferol (Drisdol (Vitamin D=Ergocalciferol) 46418 Unit Cap) 50,000 unit PO Q7D [facility] Last Admin: 10/21/22 11:36 Dose: 50,000 unit Glucagon (Glucagon 1 Mg/Vial) 1 mg IM 1X PRN; Protocol PRN Reason: HYPOGLYCEMIA Hydromorphone HCl (Hydromorphone Hcl 0.5 Mg/0.5 Ml Inj) 0.5 mg IV Q3HP PRN PRN Reason: Pain scale 8-10 (Severe) Last Admin: 10/22/22 09:22 Dose: 0.5 mg Ceftriaxone Sodium 2,000 mg/ (Sodium Chloride) 100 mls @ 200 mls/hr IV Q24H [facility]; Protocol Stop: 10/30/22 17:29 Last Admin: 10/21/22 17:47 Dose: 100 mls Dextrose (Dextrose 10% Water Iv Soln.) 125 mls @ 0 mls/hr IV PRN PRN; Protocol PRN Reason: HYPOGLYCEMIA Sodium Chloride (Ns 1000 Ml Ivbag) 1,000 mls @ 75 mls/hr IV .[id number] [facility] Last Admin: 10/21/22 22:27 Dose: 1,000 mls Magnesium Sulfate/Dextrose (Magnesium Sulfate 1gm/D5w Ivpb (Premix)) 1 gm in 100 mls @ 100 mls/hr IV 1X ONE Stop: 10/22/22 09:59 Last Admin: 10/22/22 08:51 Dose: 100 mls Potassium Phosphate (Potassium Phos 15 Mmol/250 Ml Ns) 15 mmol in 250 mls @ 62.5 mls/hr IV 1X ONE; Protocol Stop: 10/22/22 13:59 Insulin Glargine (Insulin Glargine 100 Unit/Ml) 20 unit SQ 1700 [facility] Last Admin: 10/21/22 17:47 Dose: 20 unit Insulin Human Regular (Insulin -Regular Human 50 Unit/0.5 Ml Ml) 0 unit SQ ACHS [facility]; Protocol Last Admin: 10/22/22 08:51 Dose: 5 unit Ondansetron HCl (Ondansetron 4 Mg/2 Ml Vial) 4 mg IV Q6HP PRN PRN Reason: NAUSEA / VOMITING Last Admin: 10/21/22 03:08 Dose: 4 mg Promethazine HCl (Promethazine Inj 25 Mg/Ml Amp) 12.5 mg IV Q6H PRN PRN Reason: NAUSEA / VOMITING Sodium Bicarbonate (Sodium Bicarb 325 Mg Tab) 650 mg PO QID [facility] Last Admin: 10/22/22 08:50 Dose: 650 mg Sodium Chloride (Flush Normal Saline 10 Ml) 10 ml IV BID [facility] Last Admin: 10/22/22 08:51 Dose: 10 ml Tamsulosin HCl (Tamsulosin 0.4 Mg Sr Cap) 0.4 mg PO BID [facility] Last Admin: 10/22/22 08:50 Dose: 0.4 mg Microbiology 10/18/22 12:42 Clean Catch Urine [place] Count - Final >100,000 CFU/ML. 10/18/22 12:42 Clean Catch Urine - Final Escherichia Coli 10/18/22 12:06 Blood - Blood Aerobic Blood Culture - Final Escherichia Coli 10/18/22 12:06 Blood - Blood Blood Culture Gram Stain - Final 10/18/22 12:06 Blood - Blood Anaerobic Blood Culture - Final Escherichia Coli 10/18/22 12:06 Blood - Blood Gram Stain - Final 10/18/22 12:38 Blood - Blood Aerobic Blood Culture - Final Escherichia Coli 10/18/22 12:38 Blood - Blood Blood Culture Gram Stain - Final 10/18/22 12:38 Blood - Blood Anaerobic Blood Culture - Final Escherichia Coli 10/18/22 12:38 Blood - Blood Gram Stain - Final 10/18 COVID positive 10/20 UC: Gram Neg Sanchez positive and pending for culture 10/22 UA: Positive Assessment And Plan - Current Problems (Diagnosis) (1) E coli bacteremia Current Visit: No Status: Acute Plan: Antibiotics: - 10/21 Switched from Cefepime to Rocephin - Continue Rocephin 10/21 to present - WBC: Normal today and will keep monitoring the trend Cultures: - 10/18 Blood and Urine culture: Positive with E. Coli - 10/19 BC: No growth - 10/20 UC: Gram Neg Sanchez positive and culture is pending - 10/22 UA: Positive ID will follow the patient closely to monitor signs of infection with fever and WBC trends (2) Acute pyelonephritis Current Visit: No Status: Acute Plan: - S/P stent placement on 10/20 by Abby Renee - Nephrology onboard and following the patient. - Plan - Thrombocytopenia: Most likely secondary to sepsis - Diabetes mellitus and neuropathy: Managed with insulin by primary team - Renal insufficiency: Nephrology onboard and follow the patient - Moderate protein calorie malnourishment: Patient albumin is low and recommend supplemental protein drinks to support nutrition and immunity - Will continue to follow the patient closely and keep monitoring the signs of infection with fever and WBC trends Case has been discussed with Dr. Almanzar N Physician Review: Patient Assessed, Agree with Above Assessment and Plan
[2022-10-22] MEDS ORDERED: POTASSIUM PHOS IN 0.9 % NACL 15 MMOL/250 ML BAG IV ONE (10:00)
[2022-10-22] MEDS ORDERED: INSULIN GLARGINE 100 UNIT/ML SQ ONE (10:24)
[2022-10-22 10:55] LABS: Anisocytosis SLIGHT; Blood Morphology Comment NOTED (NOT SEEN); Platelet Estimate DECR
[2022-10-22 10:56] LABS: Hypochromasia 1+
[2022-10-22] MEDS: BENZONATATE 100 MG CAP PO PRN ×2 (14:03→22:41)
[2022-10-22] MEDS: INSULIN GLARGINE 100 UNIT/ML SQ SCH (16:37)
[2022-10-22] MEDS: NA CHLORIDE 0.9% 1,000 ML IV SCH (16:40)
[2022-10-22] MEDS: CEFTRIAXONE 2,000 MG in NA CHLORIDE 0.9% 100 ML IV SCH (16:44)
--- NOTE | 2022-10-22 19:21 | P.PN ---
Date of Service: 10/22/22 Vital Signs Temp Pulse Resp BP Pulse Ox 98.0 F 100 H 27 H 131/78 100 10/22/22 18:32 10/22/22 18:32 10/22/22 18:32 10/22/22 18:32 10/22/22 18:32 Medications Acetaminophen (Acetaminophen 500 Mg Tab) 500 mg PO Q4HP PRN PRN Reason: Pain scale 2-4 (Mild) Last Admin: 10/20/22 10:33 Dose: 500 mg Benzonatate (Benzonatate 100 Mg Cap) 100 mg PO TID PRN PRN Reason: COUGH Last Admin: 10/22/22 14:03 Dose: 100 mg Enteral Nutritional Formula (Glucerna Shake 237 Ml Can) 237 ml PO BID [facility] Ergocalciferol (Drisdol (Vitamin D=Ergocalciferol) 98240 Unit Cap) 50,000 unit PO Q7D [facility] Last Admin: 10/21/22 11:36 Dose: 50,000 unit Glucagon (Glucagon 1 Mg/Vial) 1 mg IM 1X PRN; Protocol PRN Reason: HYPOGLYCEMIA Hydromorphone HCl (Hydromorphone Hcl 0.5 Mg/0.5 Ml Inj) 0.5 mg IV Q3HP PRN PRN Reason: Pain scale 8-10 (Severe) Last Admin: 10/22/22 16:38 Dose: 0.5 mg Ceftriaxone Sodium 2,000 mg/ (Sodium Chloride) 100 mls @ 200 mls/hr IV Q24H [facility]; Protocol Stop: 10/30/22 17:29 Last Admin: 10/22/22 16:44 Dose: 100 mls Dextrose (Dextrose 10% Water Iv Soln.) 125 mls @ 0 mls/hr IV PRN PRN; Protocol PRN Reason: HYPOGLYCEMIA Sodium Chloride (Ns 1000 Ml Ivbag) 1,000 mls @ 75 mls/hr IV .[id number] [facility] Last Admin: 10/22/22 16:40 Dose: 1,000 mls Insulin Glargine (Insulin Glargine 100 Unit/Ml) 20 unit SQ 1700 [facility] Last Admin: 10/22/22 16:37 Dose: 20 unit Insulin Human Regular (Insulin -Regular Human 50 Unit/0.5 Ml Ml) 0 unit SQ ACHS [facility]; Protocol Last Admin: 10/22/22 16:39 Dose: 5 unit Ondansetron HCl (Ondansetron 4 Mg/2 Ml Vial) 4 mg IV Q6HP PRN PRN Reason: NAUSEA / VOMITING Last Admin: 10/21/22 03:08 Dose: 4 mg Promethazine HCl (Promethazine Inj 25 Mg/Ml Amp) 12.5 mg IV Q6H PRN PRN Reason: NAUSEA / VOMITING Sodium Bicarbonate (Sodium Bicarb 325 Mg Tab) 650 mg PO QID [facility] Last Admin: 10/22/22 16:44 Dose: 650 mg Sodium Chloride (Flush Normal Saline 10 Ml) 10 ml IV BID [facility] Last Admin: 10/22/22 08:51 Dose: 10 ml Tamsulosin HCl (Tamsulosin 0.4 Mg Sr Cap) 0.4 mg PO BID [facility] Last Admin: 10/22/22 08:50 Dose: 0.4 mg Microbiology Results 10/18/22 12:42 Clean Catch Urine [place] Count - Final >100,000 CFU/ML. 10/18/22 12:42 Clean Catch Urine - Final Escherichia Coli 10/18/22 12:06 Blood - Blood Aerobic Blood Culture - Final Escherichia Coli 10/18/22 12:06 Blood - Blood Blood Culture Gram Stain - Final 10/18/22 12:06 Blood - Blood Anaerobic Blood Culture - Final Escherichia Coli 10/18/22 12:06 Blood - Blood Gram Stain - Final 10/18/22 12:38 Blood - Blood Aerobic Blood Culture - Final Escherichia Coli 10/18/22 12:38 Blood - Blood Blood Culture Gram Stain - Final 10/18/22 12:38 Blood - Blood Anaerobic Blood Culture - Final Escherichia Coli 10/18/22 12:38 Blood - Blood Gram Stain - Final Assessment/ Plan: Nephrology No dyspnea No chest pain Persistent left flank pain No acute events overnight Vitals, medications, blood work and imaging reviewed in the chart. General: Oriented x3, Cooperative HEENT: Atraumatic Neck: Supple Respiratory: Clear to auscultation bilaterally Cardiovascular: No edema, Regular rate/rhythm Gastrointestinal: Tenderness, Guarding Musculoskeletal: No clubbing, No contractures Integumentary: No rashes, No cyanosis Neurological: Normal speech Laboratory Data (last 24 hrs) 10/18/22 12:38: Sodium 132 L, Potassium 3.6, BUN 26 H, Creatinine 1.89 H, Glucose 336 H, Phosphorus 5.0 H, Magnesium 1.8, Total Bilirubin 0.6, AST 53 H, ALT 25, Alkaline Phosphatase 114, Lipase 32 L 10/18/22 12:38: WBC 13.40 H, Hgb 11.6 L, Hct 36.4, Plt Count 111 L Imagings Data: EXAM DESCRIPTION: CT - Abdomen Pelvis Wo Contrast - 10/18/2022 1:32 pm CLINICAL HISTORY: hx of pyelonephritis COMPARISON: Abdomen Pelvis W Contrast dated 10/21/2020 TECHNIQUE: Axial [address] imaging of the abdomen and pelvis was performed without IV contrast. No IV contrast was given because of allergy, abnormal renal function, patient refusal or physician request. No oral contrast administered. All CT scans are performed using dose optimization technique as appropriate and may include automated exposure control or mA/KV adjustment according to patient size. FINDINGS: Trace amount of pleural fluid noted on the left. No cardiomegaly or pericardial effusion. Liver has a very pronounced fatty infiltration pattern with no focal liver lesions seen on noncontrast imaging. Spleen and pancreas show no suspicious findings. Gallbladder and biliary tree are also without suspicious finding. No acute right-sided finding identified. The left kidney is enlarged relative to the right and edematous in appearance. There is perinephric stranding present. Mild left-sided hydronephrosis is present with stranding in the periureteral fat down to the UVJ. There is no obstructing calculus in the left ureter. No nonobstructing left-sided calculi seen. Partially filled urinary bladder shows no wall thickening or edema to be evident. No bladder calculi. No significant adrenal finding. Isodense masses are not excluded. Left sided pyelonephritis is a primary consideration. The 2020 study showed extensive bilateral pyelonephritis changes. A more mild pyelonephritis of the right kidney cannot be excluded. The right-sided hydronephrosis could be due to blood or inflammatory debris within the collecting system. No dilated bowel loops or bowel wall thickening. No appendicitis findings. No free air, free fluid or inflammatory stranding. No hernia, mass or bulky lymphadenopathy. No suspicious bony findings. IMPRESSION: Enlarged, edematous left kidney with mild hydronephrosis present down to the UVJ level. No obstructing or nonobstructing calculi present. Based on the prior imaging events, acute pyelonephritis of the left kidney would be suspected. The hydronephrosis could be due to blood or inflammatory debris within the left collecting system. Left-sided findings due to recently passed kidney stone are possible but felt to be lesser likelihood given the collective findings and prior study. Correlation is needed with clinical and laboratory findings of acute pyelonephritis. No right abnormality seen. Right-sided isodense masses and pyelonephritis are not excluded. Full assessment is limited is the absence of IV contrast. Conclusions/Impression: Stage III JOHN in the setting of left pyelonephritis/ hydronephrosis Proteinuria -No NSAIDs -Continue IVF Hypokalemia -Replete as ordered HypoPO4 -Replete as ordered Left pyelonephritis with left hydronephrosis Sepsis in the setting of pyelonephritis -Continue IVF -Continue Abx -Continue Flomax BID -Follow up with urology Hyponatremia in the setting of hyperglycemia -Continue IVF with NS -Encourage nutrition Acidosis -Continue oral bicarb DM II with hyperglycemia -RISS Hypoalbuminemia -Encourage nutrition Anemia in chronic illness Iron Deficiency 3.1% Thrombocytopenia -Monitor CBC -Consider IV iron as infection improves Case reviewed with Dr. Ríos
[2022-10-22] MEDS ORDERED: POTASSIUM 25 MEQ EFFERV TAB PO ONE (19:25)
[2022-10-22] MEDS: Ringers Lactate 1,000 ML IV SCH (20:18)
[2022-10-22] MEDS: LACTOBACILLUS/ACIDOPHILUS TAB PO SCH (20:19)
[2022-10-22] MEDS: GLUCERNA SHAKE 237 ML CAN PO SCH (20:19)
--- NOTE | 2022-10-23 01:35 | P.PN ---
Date of Service: 10/21/22 Subjective Patient with chronic pain throughout. He does not really state that 1 particular area is hurting. More on the left side. According to the nurses staff she is better overall. DKA is corrected. Long-acting insulin has been started. Patient needs to start getting out of bed and ambulating. Physical Examination - Vital Signs reviewed - Physical Exam General: Alert, Oriented x3, Mild distress Respiratory: Clear to auscultation bilaterally, Normal air movement Cardiovascular: Normal S1 S2, No gallops, No rubs, No murmurs, Other (tachycardic) Gastrointestinal: Normal bowel sounds, Soft and benign, Non-distended, No rebound, No guarding, Tenderness (mid-left abdomen) Musculoskeletal: No clubbing, Other (left CVA tenderness); diffuse tenderness Neurological: No focal deficits Assessment And Plan - Assessment 1. Severe Sepsis 2. Acute Escherichia Coli Pyelonephritis with Escherichia Coli Bacteremia 3. Mild Left Hydronephrosis 4. Thrombocytopenia secondary to Sepsis 5. Diabetic Ketoacidosis 6. Stage III Acute Kidney Injury 7. Hypertension - Plan -aggressive IV hydration -IV antibiotics -management of stent and Stark per Urology -pain controlled -monitor CBCs. -Strict blood pressure and blood sugar control
--- NOTE | 2022-10-23 01:36 | P.PN ---
Date of Service: 10/22/22 Subjective started on long-acting insulin and patient is doing better. Pain is better controlled. Will start physical therapy and advised nursing to start getting patient out of bed to ambulate. Physical Examination - Vital Signs reviewed - Physical Exam General: Alert, Oriented x3, Mild distress Respiratory: Clear to auscultation bilaterally, Normal air movement Cardiovascular: Normal S1 S2, No gallops, No rubs, No murmurs, Other (tachycardic) Gastrointestinal: Normal bowel sounds, Soft and benign, Non-distended, No rebound, No guarding, Tenderness (mid-left abdomen) Musculoskeletal: No clubbing, Other (left CVA tenderness); diffuse tenderness Neurological: No focal deficits Assessment And Plan - Assessment 1. Severe Sepsis 2. Acute Escherichia Coli Pyelonephritis with Escherichia Coli Bacteremia 3. Mild Left Hydronephrosis 4. Thrombocytopenia secondary to Sepsis 5. Diabetic Ketoacidosis 6. Stage III Acute Kidney Injury 7. Hypertension - Plan Continue with plan of care as mentioned below: -aggressive IV hydration -IV antibiotics -management of stent and Stark per Urology -pain controlled -monitor CBCs. -Strict blood pressure and blood sugar control
--- NOTE | 2022-10-23 01:43 | P.PN ---
Date of Service: 10/23/22 Subjective Physical Examination - Vital Signs reviewed - Physical Exam General: Alert, Oriented x3, Mild distress Respiratory: Clear to auscultation bilaterally, Normal air movement Cardiovascular: Normal S1 S2, No gallops, No rubs, No murmurs, Other (tachycardic) Gastrointestinal: Normal bowel sounds, Soft and benign, Non-distended, No r ebound, No guarding, Tenderness (mid-left abdomen) Musculoskeletal: No clubbing, Other (left CVA tenderness); diffuse tenderness Neurological: No focal deficits Assessment And Plan - Assessment 1. Severe Sepsis 2. Acute Escherichia Coli Pyelonephritis with Escherichia Coli Bacteremia 3. Mild Left Hydronephrosis 4. Thrombocytopenia secondary to Sepsis 5. Diabetic Ketoacidosis 6. Stage III Acute Kidney Injury 7. Hypertension - Plan Continue with plan of care as mentioned below: -aggressive IV hydration -IV antibiotics -management of stent and Stark per Urology -pain controlled -monitor CBCs. -Strict blood pressure and blood sugar control
[2022-10-23] MEDS: HYDROMORPHONE HCL 0.5 MG/0.5 ML INJ IV PRN ×7 (02:35→22:24)
[2022-10-23 05:24] VITALS: BMI 24.4
[2022-10-23 05:54] LABS: Absolute Lymphocytes (CBC) 0.7 K/uL (0.7-4.9); Hematocrit 27.2 % (36.0-45.0); Lymphocytes % 9.8 % (15.3-44.8); MCV 74.2 fL (80-100); MPV 9.4 fL (7.6-11.3); RBC Red Blood Cell Count 3.66 M/uL (3.86-4.86)
[2022-10-23 06:11] LABS: Magnesium 1.8 mg/dL (1.6-2.4); Phosphorus 2.1 mg/dL (2.5-4.9)
[2022-10-23 06:16] LABS: Potassium 2.9 mmol/L (3.5-5.1)
[2022-10-23] MEDS ORDERED: POTASSIUM CL SA 10 MEQ TAB PO ONE ×2 (07:22→22:45)
[2022-10-23] MEDS ORDERED: KCL 20 MEQ/100 mL IVPB 20 MEQ/100 ML BAG IV ONE (07:30)
[2022-10-23] MEDS ORDERED: KCL 20 MEQ/100 mL IVPB 20 MEQ/100 ML BAG IV SCH (07:30)
[2022-10-23] MEDS: Ringers Lactate 1,000 ML IV SCH (07:43)
[2022-10-23] MEDS: INSULIN -REGULAR HUMAN 50 UNIT/0.5 ML ML SQ SCH ×4 (07:44→20:34)
[2022-10-23] MEDS: LACTOBACILLUS/ACIDOPHILUS TAB PO SCH ×2 (07:44→20:34)
[2022-10-23] MEDS: TAMSULOSIN 0.4 MG SR CAP PO SCH ×2 (07:44→20:34)
[2022-10-23] MEDS: JUVEN PACKET PO SCH ×2 (07:45→20:35)
[2022-10-23] MEDS: POTASS/SODIUM PHOSPHATE 1 PKT POWD.PACK PO SCH ×3 (07:45→11:29)
[2022-10-23] MEDS: SOD FERRIC GLUC COMPLX/SUCROSE 125 MG in NA CHLORIDE 0.9% 100 ML IV SCH (08:38)
[2022-10-23] MEDS ORDERED: MAGNESIUM SULFATE 1 gm IVPB 1 GM/100 ML BAG IV ONE (09:00)
[2022-10-23] MEDS: GLUCERNA SHAKE 237 ML CAN PO SCH ×2 (09:00→20:35)
--- NOTE | 2022-10-23 09:23 | P.PN ---
Subjective Date of Service: 10/23/22 Primary Care Provider: None Chief Complaint: Abdominal Pain Patient lying in bed alert and talking on the phone with family member with no signs of cardiopulmonary distress. No major events upon examination Physical Examination - Vital Signs Temperature: 98.2 F Blood Pressure: 148/81 Pulse: 96 Respirations: 14 Pulse Ox (%): 97 - Physical Exam General: Alert, In no apparent distress, Oriented x3 Respiratory: Clear to auscultation bilaterally, Other (moderate dry cough) Cardiovascular: No edema, Normal pulses, Normal S1 S2 Gastrointestinal: Normal bowel sounds Musculoskeletal: No swelling, Tenderness (mild back pain secondary to lying in bed most of the time) Integumentary: No breakdown Neurological: Normal speech, Normal affect Urinary: Stark catheter (Urine yellow and clear) - Studies Current Medications: Acetaminophen (Acetaminophen 500 Mg Tab) 500 mg PO Q4HP PRN PRN Reason: Pain scale 2-4 (Mild) Last Admin: 10/20/22 10:33 Dose: 500 mg Benzonatate (Benzonatate 100 Mg Cap) 100 mg PO TID PRN PRN Reason: COUGH Last Admin: 10/22/22 22:41 Dose: 100 mg Enteral Nutritional Formula (Glucerna Shake 237 Ml Can) 237 ml PO BID [facility] Last Admin: 10/22/22 20:19 Dose: Not Given Ergocalciferol (Drisdol (Vitamin D=Ergocalciferol) 52469 Unit Cap) 50,000 unit PO Q7D [facility] Last Admin: 10/21/22 11:36 Dose: 50,000 unit Glucagon (Glucagon 1 Mg/Vial) 1 mg IM 1X PRN; Protocol PRN Reason: HYPOGLYCEMIA Hydromorphone HCl (Hydromorphone Hcl 0.5 Mg/0.5 Ml Inj) 0.5 mg IV Q3HP PRN PRN Reason: Pain scale 8-10 (Severe) Last Admin: 10/23/22 07:45 Dose: 0.5 mg Ceftriaxone Sodium 2,000 mg/ (Sodium Chloride) 100 mls @ 200 mls/hr IV Q24H [facility]; Protocol Stop: 10/30/22 17:29 Last Admin: 10/22/22 16:44 Dose: 100 mls Dextrose (Dextrose 10% Water Iv Soln.) 125 mls @ 0 mls/hr IV PRN PRN; Protocol PRN Reason: HYPOGLYCEMIA Lactated Ringer's (Lactated Ringers) 1,000 mls @ 75 mls/hr IV .[id number] [facility] Last Admin: 10/23/22 07:43 Dose: 1,000 mls Ferric Sodium Gluconate Complex 125 mg/ Sodium Chloride 110 mls @ 100 mls/hr IV DAILY [facility] Stop: 10/30/22 10:05 Last Admin: 10/23/22 08:38 Dose: 110 mls Magnesium Sulfate/Dextrose (Magnesium Sulfate 1gm/D5w Ivpb (Premix)) 1 gm in 100 mls @ 100 mls/hr IV 1X ONE Stop: 10/23/22 09:59 Last Admin: 10/23/22 07:45 Dose: 100 mls Potassium Chloride (Kcl 20 Meq/100 Ml Ivpb (Premix)) 20 meq in 100 mls @ 50 mls/hr IV 1X ONE; Protocol Stop: 10/23/22 09:29 Last Admin: 10/23/22 07:30 Dose: Not Given Insulin Glargine (Insulin Glargine 100 Unit/Ml) 20 unit SQ 1700 [facility] Last Admin: 10/22/22 16:37 Dose: 20 unit Insulin Human Regular (Insulin -Regular Human 50 Unit/0.5 Ml Ml) 0 unit SQ ACHS [facility]; Protocol Last Admin: 10/23/22 07:44 Dose: 3 unit L-Arginine/L-Glutamine/HMB (Jamshid Packet) 1 pkt PO BID [facility] Last Admin: 10/23/22 07:45 Dose: 1 pkt Lactobacillus Acidoph/Bulgaricus (Lactobacillus/Acidophilus Tab) 1 tab PO BID [facility] Last Admin: 10/23/22 07:44 Dose: 1 tab Ondansetron HCl (Ondansetron 4 Mg/2 Ml Vial) 4 mg IV Q6HP PRN PRN Reason: NAUSEA / VOMITING Last Admin: 10/21/22 03:08 Dose: 4 mg Potassium Phos/Sodium Phos (Potass/Sodium Phosphate 1 Pkt Powd.Pack) 1 pkt PO Q1H [facility] Stop: 10/23/22 11:01 Last Admin: 10/23/22 07:45 Dose: 1 pkt Promethazine HCl (Promethazine Inj 25 Mg/Ml Amp) 12.5 mg IV Q6H PRN PRN Reason: NAUSEA / VOMITING Sodium Chloride (Flush Normal Saline 10 Ml) 10 ml IV BID [facility] Last Admin: 10/23/22 07:45 Dose: 10 ml Tamsulosin HCl (Tamsulosin 0.4 Mg Sr Cap) 0.4 mg PO BID [facility] Last Admin: 10/23/22 07:44 Dose: 0.4 mg Microbiology 10/18/22 12:42 Clean Catch Urine [place] Count - Final >100,000 CFU/ML. 10/18/22 12:42 Clean Catch Urine - Final Escherichia Coli 10/18/22 12:06 Blood - Blood Aerobic Blood Culture - Final Escherichia Coli 10/18/22 12:06 Blood - Blood Blood Culture Gram Stain - Final 10/18/22 12:06 Blood - Blood Anaerobic Blood Culture - Final Escherichia Coli 10/18/22 12:06 Blood - Blood Gram Stain - Final 10/18/22 12:38 Blood - Blood Aerobic Blood Culture - Final Escherichia Coli 10/18/22 12:38 Blood - Blood Blood Culture Gram Stain - Final 10/18/22 12:38 Blood - Blood Anaerobic Blood Culture - Final Escherichia Coli 10/18/22 12:38 Blood - Blood Gram Stain - Final Assessment And Plan - Current Problems (Diagnosis) (1) E coli bacteremia Current Visit: No Status: Acute Plan: Antibiotics: - 10/21 Switched from Cefepime to Rocephin - Continue Rocephin 10/21 to present - WBC: Normal today and will keep monitoring the trend Cultures: - 10/18 Blood and Urine culture: Positive with E. Coli - 10/19 BC: No growth - 10/20 UC: Positive with E. Coli - 10/22 UA: Positive ID will follow the patient closely to monitor signs of infection with fever and WBC trends (2) Acute pyelonephritis Current Visit: No Status: Acute Plan: - S/P stent placement on 10/20 by Savita Renee Follow up with urology as outpatient for stent removal. - Nephrology onboard and following the patient. - Plan - Thrombocytopenia: Most likely secondary to sepsis, improving - Diabetes mellitus and neuropathy: Managed with insulin by primary team - Renal insufficiency: Nephrology onboard and follow the patient - Moderate protein calorie malnutrition: Patient albumin is low and recommend supplemental protein drinks to support nutrition and immunity - Will continue to follow the patient closely and keep monitoring the signs of infection with fever and WBC trends Case has been discussed with Dr. Yohan, N Physician Review: Patient Assessed, Agree with Above Assessment and Plan
--- NOTE | 2022-10-23 10:53 | P.PN ---
Nephrology note (S) Pt continues to have some abdominal/left flank pain, some cramps in her legs, K level low this AM, has received IV and PO replacement. Vitals, medications, blood work and imaging reviewed in the chart. General: Oriented x3, Cooperative HEENT: Atraumatic, sclera anicteric Neck: Supple Respiratory: b/l air entry, some cough Cardiovascular: No edema, Regular rate/rhythm Gastrointestinal: Soft, ND, some TTP left side, greenwood present Musculoskeletal: No clubbing, No contractures Integumentary: No rashes, No cyanosis Neurological: Normal speech, awake, alert Laboratory Data (last 24 hrs) Reviewed in the EMR Imagings Data: EXAM DESCRIPTION: CT - Abdomen Pelvis Wo Contrast - 10/18/2022 1:32 pm CLINICAL HISTORY: hx of pyelonephritis COMPARISON: Abdomen Pelvis W Contrast dated 10/21/2020 TECHNIQUE: Axial [address] imaging of the abdomen and pelvis was performed without IV contrast. No IV contrast was given because of allergy, abnormal renal function, patient refusal or physician request. No oral contrast administered. All CT scans are performed using dose optimization technique as appropriate and may include automated exposure control or mA/KV adjustment according to patient size. FINDINGS: Trace amount of pleural fluid noted on the left. No cardiomegaly or pericardial effusion. Liver has a very pronounced fatty infiltration pattern with no focal liver lesions seen on noncontrast imaging. Spleen and pancreas show no suspicious findings. Gallbladder and biliary tree are also without suspicious finding. No acute right-sided finding identified. The left kidney is enlarged relative to the right and edematous in appearance. There is perinephric stranding present. Mild left-sided hydronephrosis is present with stranding in the periureteral fat down to the UVJ. There is no obstructing calculus in the left ureter. No nonobstructing left-sided calculi seen. Partially filled urinary bladder shows no wall thickening or edema to be evident. No bladder calculi. No significant adrenal finding. Isodense masses are not excluded. Left sided pyelonephritis is a primary consideration. The 2020 study showed extensive bilateral pyelonephritis changes. A more mild pyelonephritis of the right kidney cannot be excluded. The right-sided hydronephrosis could be due to blood or inflammatory debris within the collecting system. No dilated bowel loops or bowel wall thickening. No appendicitis findings. No free air, free fluid or inflammatory stranding. No hernia, mass or bulky lymphadenopathy. No suspicious bony findings. IMPRESSION: Enlarged, edematous left kidney with mild hydronephrosis present down to the UVJ level. No obstructing or nonobstructing calculi present. Based on the prior imaging events, acute pyelonephritis of the left kidney would be suspected. The hydronephrosis could be due to blood or inflammatory debris within the left collecting system. Left-sided findings due to recently passed kidney stone are possible but felt to be lesser likelihood given the collective findings and prior study. Correlation is needed with clinical and laboratory findings of acute pyelonephritis. No right abnormality seen. Right-sided isodense masses and pyelonephritis are not excluded. Full assessment is limited is the absence of IV contrast. Conclusions/Impression: JOHN in the setting of sepsis, volume depletion, left pyelonephritis/ hydronephrosis -Cr level has normalized, polyuric with post obstructive diuresis, cont IVF Hypokalemia -Repleted with IV and PO KCL and will change maintenance IVF to NS with KCL HypoPO4 -Phos > 2.0 this AM Left pyelonephritis with left hydronephrosis Ecoli Sepsis in the setting of pyelonephritis -s/p stenting by urology, cont Abx, post obstructive diuresis, cont IVF. Jacob Carlos MD, TAY
[2022-10-23] MEDS: NS KCL 20MEQ 20 MEQ/1,000 ML BAG IV SCH ×2 (11:16→19:52)
[2022-10-23] MEDS: levoFLOXacin 750 MG TAB PO SCH (12:34)
[2022-10-23] MEDS: INSULIN GLARGINE 100 UNIT/ML SQ SCH (16:43)
[2022-10-23] MEDS ORDERED: HYDROCODONE/APAP 10/325 TAB PO ONE ×2 (17:07→18:00)
[2022-10-24] MEDS: HYDROMORPHONE HCL 0.5 MG/0.5 ML INJ IV PRN ×6 (00:42→17:41)
[2022-10-24] MEDS: NS KCL 20MEQ 20 MEQ/1,000 ML BAG IV SCH ×2 (03:03→09:00)
[2022-10-24] MEDS: ACETAMINOPHEN 500 MG TAB PO PRN (03:38)
[2022-10-24 06:11] LABS: Magnesium 1.7 mg/dL (1.6-2.4); Phosphorus 1.7 mg/dL (2.5-4.9)
[2022-10-24] MEDS: INSULIN -REGULAR HUMAN 50 UNIT/0.5 ML ML SQ SCH ×4 (07:30→22:21)
[2022-10-24] MEDS: SOD FERRIC GLUC COMPLX/SUCROSE 125 MG in NA CHLORIDE 0.9% 100 ML IV SCH (09:00)
[2022-10-24] MEDS ORDERED: MAGNESIUM SULFATE 1 gm IVPB 1 GM/100 ML BAG IV ONE (09:00)
[2022-10-24] MEDS: POTASS/SODIUM PHOSPHATE 1 PKT POWD.PACK PO SCH (09:01)
[2022-10-24] MEDS: LACTOBACILLUS/ACIDOPHILUS TAB PO SCH ×2 (09:01→22:21)
[2022-10-24] MEDS: levoFLOXacin 750 MG TAB PO SCH (09:01)
[2022-10-24] MEDS: TAMSULOSIN 0.4 MG SR CAP PO SCH ×2 (09:01→22:21)
[2022-10-24] MEDS: ONDANSETRON 4 MG/2 ML VIAL IV PRN (09:06)
[2022-10-24] MEDS: GLUCERNA SHAKE 237 ML CAN PO SCH ×2 (09:07→22:22)
[2022-10-24] MEDS: JUVEN PACKET PO SCH ×2 (09:07→22:22)
--- NOTE | 2022-10-24 09:23 | RAD REPORT ---
EXAM DESCRIPTION: CT - Abdomen Pelvis W Contrast - 10/24/2022 8:30 am CLINICAL HISTORY: Abdominal pain COMPARISON: October 20, 2022 TECHNIQUE: Computed axial tomography of the abdomen pelvis was obtained. 100 cc Isovue-300 was admin istered intravenously. Oral contrast was not requested which limits evaluation of bowel and appendix All CT scans are performed using dose optimization technique as appropriate and may include automated exposure control or mA/KV adjustment according to patient size. FINDINGS: Small bilateral pleural effusions. Mild left basilar atelectasis Left ureteral stent is in place. No hydronephrosis. Left kidney remains enlarged with multiple low-de nsity areas and a striated appearance. There is delayed concentration. Right kidney are unremarkable. The liver, spleen, pancreas and adrenals appear normal No evidence of diverticulitis. 3.6 centimeter left ovarian cyst with a small amount of free fluid IMPRESSION: Left ureteral stent in good position without hydronephrosis Left kidney remains enlarged with a striated appearance and low-density areas likely infection. No di screte large abscess noted. 3.6 centimeter left ovarian cyst with a small amount of free fluid
--- NOTE | 2022-10-24 10:40 | P.PN ---
Subjective Date of Service: 10/24/22 Primary Care Provider: None Chief Complaint: Abdominal Pain Patient lying in bed reported has been having left side pain since three days ago and only subsided when IV pain medication was given. RN was notified and stated that the the primary team was aware. All VS has been stable with no major events upon examination. Physical Examination - Vital Signs Temperature: 98.6 F Blood Pressure: 126/65 Pulse: 87 Respirations: 18 Pulse Ox (%): 94 - Physical Exam General: Alert, In no apparent distress, Oriented x3 Cardiovascular: No edema, Normal pulses, Normal S1 S2 Gastrointestinal: Normal bowel sounds Musculoskeletal: No swelling Integumentary: No rashes, No breakdown Neurological: Normal speech, Normal affect Urinary: Stark catheter (urine yellow and clean) - Studies Current Medications: Acetaminophen (Acetaminophen 500 Mg Tab) 500 mg PO Q4HP PRN PRN Reason: Pain scale 2-4 (Mild) Last Admin: 10/24/22 03:38 Dose: 500 mg Benzonatate (Benzonatate 100 Mg Cap) 100 mg PO TID PRN PRN Reason: COUGH Last Admin: 10/22/22 22:41 Dose: 100 mg Enteral Nutritional Formula (Glucerna Shake 237 Ml Can) 237 ml PO BID [facility] Last Admin: 10/24/22 09:07 Dose: 237 ml Ergocalciferol (Drisdol (Vitamin D=Ergocalciferol) 63386 Unit Cap) 50,000 unit PO Q7D [facility] Last Admin: 10/21/22 11:36 Dose: 50,000 unit Glucagon (Glucagon 1 Mg/Vial) 1 mg IM 1X PRN; Protocol PRN Reason: HYPOGLYCEMIA Hydromorphone HCl (Hydromorphone Hcl 0.5 Mg/0.5 Ml Inj) 0.5 mg IV Q3HP PRN PRN Reason: Pain scale 8-10 (Severe) Last Admin: 10/24/22 09:55 Dose: 0.5 mg Dextrose (Dextrose 10% Water Iv Soln.) 125 mls @ 0 mls/hr IV PRN PRN; Protocol PRN Reason: HYPOGLYCEMIA Ferric Sodium Gluconate Complex 125 mg/ Sodium Chloride 110 mls @ 100 mls/hr IV DAILY [facility] Stop: 10/30/22 10:05 Last Admin: 10/24/22 09:00 Dose: 110 mls Potassium Chloride/Sodium Chloride (Kcl 20meq/Ns 1000 Ml Iv) 20 meq in 1,000 mls @ 60 mls/hr IV .[id number] [facility] Last Admin: 10/24/22 09:00 Dose: 1,000 mls Insulin Glargine (Insulin Glargine 100 Unit/Ml) 20 unit SQ 1700 [facility] Last Admin: 10/23/22 16:43 Dose: 20 unit Insulin Human Regular (Insulin -Regular Human 50 Unit/0.5 Ml Ml) 0 unit SQ ACHS [facility]; Protocol Last Admin: 10/24/22 07:30 Dose: Not Given L-Arginine/L-Glutamine/HMB (Jamshid Packet) 1 pkt PO BID [facility] Last Admin: 10/24/22 09:07 Dose: 1 pkt Lactobacillus Acidoph/Bulgaricus (Lactobacillus/Acidophilus Tab) 1 tab PO BID [facility] Last Admin: 10/24/22 09:01 Dose: 1 tab Levofloxacin (Levofloxacin 750 Mg Tab) 750 mg PO DAILY [facility] Stop: 10/30/22 12:01 Last Admin: 10/24/22 09:01 Dose: 750 mg Ondansetron HCl (Ondansetron 4 Mg/2 Ml Vial) 4 mg IV Q6HP PRN PRN Reason: NAUSEA / VOMITING Last Admin: 10/24/22 09:06 Dose: 4 mg Promethazine HCl (Promethazine Inj 25 Mg/Ml Amp) 12.5 mg IV Q6H PRN PRN Reason: NAUSEA / VOMITING Sodium Chloride (Flush Normal Saline 10 Ml) 10 ml IV BID [facility] Last Admin: 10/24/22 09:07 Dose: 10 ml Tamsulosin HCl (Tamsulosin 0.4 Mg Sr Cap) 0.4 mg PO BID [facility] Last Admin: 10/24/22 09:01 Dose: 0.4 mg Microbiology Data (last 24 hrs): Microbiology 10/18/22 12:42 Clean Catch Urine [place] Count - Final >100,000 CFU/ML. 10/18/22 12:42 Clean Catch Urine - Final Escherichia Coli 10/18/22 12:06 Blood - Blood Aerobic Blood Culture - Final Escherichia Coli 10/18/22 12:06 Blood - Blood Blood Culture Gram Stain - Final 10/18/22 12:06 Blood - Blood Anaerobic Blood Culture - Final Escherichia Coli 10/18/22 12:06 Blood - Blood Gram Stain - Final 10/18/22 12:38 Blood - Blood Aerobic Blood Culture - Final Escherichia Coli 10/18/22 12:38 Blood - Blood Blood Culture Gram Stain - Final 10/18/22 12:38 Blood - Blood Anaerobic Blood Culture - Final Escherichia Coli 10/18/22 12:38 Blood - Blood Gram Stain - Final Imagings Data: 10/24 CT Abd/Pel: FINDINGS: Small bilateral pleural effusions. Mild left basilar atelectasis Left ureteral stent is in place. No hydronephrosis. Left kidney remains enlarged with multiple low-density areas and a striated appearance. There is delayed concentration. Right kidney are unremarkable. The liver, spleen, pancreas and adrenals appear normal No evidence of diverticulitis. 3.6 centimeter left ovarian cyst with a small amount of free fluid IMPRESSION: Left ureteral stent in good position without hydronephrosis Left kidney remains enlarged with a striated appearance and low-density areas l ikely infection. No discrete large abscess noted. 3.6 centimeter left ovarian cyst with a small amount of free fluid Assessment And Plan - Current Problems (Diagnosis) (1) E coli bacteremia Current Visit: No Status: Acute Plan: Antibiotics: - 10/21 Switched from Cefepime to Rocephin - Received Rocephin 10/21 to 10/22 - Levoquin started from 10/23- - Recommend to have total course of antibiotics for 14 days given to pyeloneph ritis Cultures: - 10/18 Blood and Urine culture: Positive with E. Coli - 10/19 BC: No growth - 10/20 UC: Positive with E. Coli - 10/22 UA: Positive ID will follow the patient closely to monitor signs of infection with fever and WBC trends (2) Acute pyelonephritis Current Visit: No Status: Acute Plan: - S/P stent placement on 10/20 by Savita Renee Follow up with urology as outpatient for stent removal. - Nephrology onboard and following the patient. - Plan - Thrombocytopenia: Most likely secondary to sepsis - Diabetes mellitus and neuropathy: Managed with insulin by primary team - Renal insufficiency: Nephrology onboard and follow the patient - Moderate protein calorie malnutrition: Patient albumin is low and recommend supplemental protein drinks to support nutrition and immunity - Will continue to follow the patient closely and keep monitoring the signs of infection with fever and WBC trends Case has been discussed with Dr. Yohan, N Physician Review: Patient Assessed, Agree with Above Assessment and Plan
[2022-10-24] MEDS ORDERED: HYDROCORTISONE SUC 100 MG INJ IV ONE (12:09)
[2022-10-24] MEDS ORDERED: TRAMADOL 37.5mg/APAP 325mg PER TAB PO ONE (13:36)
[2022-10-24] MEDS: INSULIN GLARGINE 100 UNIT/ML SQ SCH (16:44)
--- NOTE | 2022-10-24 19:54 | P.PN ---
Date of Service: 10/24/22 41-year-old woman with poorly controlled diabetes and a history of recurrent urinary tract infections, admitted with pyelonephritic sepsis secondary to an E coli UTI with associated left hydroureteronephrosis s/p cystoscopy and left ureteral stent placement 10/20/2022 with Stark catheter placement. I reviewed the recent CT imaging obtained 10/24/2022 in detail. While improved nephrogram/uptake of contrast within the left kidney relative to before, there is still a significant patchy appearance with delayed concentration. Delayed phase scan was not obtained; so excretion of contrast from the left kidney/excretory function is unknown. WBC stable and normal, creatinine improved to 0.69 Intraoperative urine culture after stent placed consistent with prior urine and blood cultures E. coli -resistant to ampicillin/Unasyn but otherwise sensitive Patient afebrile with stable vital signs and clinically improved -I have significant concerns about that left kidney and the potential for abscess development. -She will likely require a minimum of an additional 10 to 14 days of antimicrobial therapy, potentially up to 21 to 28 days for complete resolution of the renal parenchymal destruction observed on imaging -While she may not require continued inpatient management, prompt outpatient follow-up and serial imaging will be required with at least ultrasound q3-5 days Recommend leaving the left ureteral stent in place for now and remove it in the office cystoscopically once complete resolution achieved likely in 14 to 21 day s. To that end, I will come by and remove the tether from the stent and remove the urethral Stark catheter, leaving the stent in place. She should follow-up with me in my office in 14 days, where I will arrange a repeat CT scan to reassess the kidney for concentration and function and to rule out an abscess. Meanwhile, if either her appliquer zigzag or other wine consultant would arrange the serial ultrasound imaging every 3 to 5 days to rule out development of abscess, that would be appreciated. Alternatively, she should see me in 3 to 5 days on discharge.
[2022-10-24] MEDS: TRAMADOL 37.5mg/APAP 325mg PER TAB PO PRN (22:29)
[2022-10-24 23:33] VITALS: O2SAT 97
[2022-10-25] MEDS: HYDROMORPHONE HCL 0.5 MG/0.5 ML INJ IV PRN (00:03)
[2022-10-25] MEDS: NS KCL 20MEQ 20 MEQ/1,000 ML BAG IV SCH ×2 (01:06→04:11)
[2022-10-25 05:34] LABS: Magnesium 2.1 mg/dL (1.6-2.4); Phosphorus 2.6 mg/dL (2.5-4.9); Potassium 3.9 mmol/L (3.5-5.1)
[2022-10-25] MEDS ORDERED: HYDROCORTISONE SUC 100 MG INJ IV ONE (06:43)
[2022-10-25] MEDS ORDERED: predniSONE 20 MG TAB PO SCH (09:00)
[2022-10-25] MEDS ORDERED: POTASSIUM CL SA 10 MEQ TAB PO ONE (09:00)
[2022-10-25] MEDS: TAMSULOSIN 0.4 MG SR CAP PO SCH (09:13)
[2022-10-25] MEDS: levoFLOXacin 750 MG TAB PO SCH (09:13)
[2022-10-25] MEDS: INSULIN -REGULAR HUMAN 50 UNIT/0.5 ML ML SQ SCH ×2 (09:13→12:41)
[2022-10-25] MEDS: GLUCERNA SHAKE 237 ML CAN PO SCH (09:14)
[2022-10-25] MEDS: LACTOBACILLUS/ACIDOPHILUS TAB PO SCH (09:14)
[2022-10-25] MEDS: JUVEN PACKET PO SCH (09:15)
[2022-10-25] MEDS: TRAMADOL 37.5mg/APAP 325mg PER TAB PO PRN (09:16)
[2022-10-25] MEDS: SOD FERRIC GLUC COMPLX/SUCROSE 125 MG in NA CHLORIDE 0.9% 100 ML IV SCH (10:11)
[2022-10-25 11:59] VITALS: BP 122/68; TEMP 98.1
--- NOTE | 2022-10-25 20:14 | PN ---
Subjective: Patient is lying in bed. No new acute event. Chart reviewed. Objective: Vital signs: Reviewed. Lungs: Basal crackles. Heart: S1, S2. Regular. Abdomen: Soft, nontender. Bowel sounds present. Extremities: No edema. Laboratory Data: Shows WBC 7.3, hemoglobin 9.1, platelets 99, BUN 16, creatinine 0.7. Urine culture growing E coli. Assessment And Plan: Pyelonephritis, COVID infection, anemia of chronic disease, thrombocytopenia, u rosepsis secondary to Escherichia coli. Continue Levaquin total of 2 weeks. We will follow the mayito ent as needed. NF/MODL Voice ID: [id number] Report ID: [id number]
== END 2022-10-25 14:39 | disposition home or self-care (01) | DRG 853 ==
LOC: ER 11:27 → ERHOLD 14:32 → 2ND 17:44 → 3RD-ICU 10-20 13:42 → 2ND 10-23 22:12
PROVIDERS: ADMIT Internal Medicine; ATTEND Hospitalist
PROC: BT1F1ZZ Fluoroscopy of Left Kidney, Ureter and Bladder using Low Osmolar Contrast (ICD-10-PCS; 2022-10-20)
PROC: 0T778DZ Dilation of Left Ureter with Intraluminal Device, Via Natural or Artificial Opening Endoscopic (ICD-10-PCS; principal; 2022-10-20 16:00)
DX: A41.51 Sepsis due to Escherichia coli [E. coli] (principal); E11.10 Type 2 diabetes mellitus with ketoacidosis without coma; U07.1 COVID-19; N17.9 Acute kidney failure, unspecified; E87.1 Hypo-osmolality and hyponatremia; N13.6 Pyonephrosis; E44.0 Moderate protein-calorie malnutrition; R65.20 Severe sepsis without septic shock; D50.9 Iron deficiency anemia, unspecified; E11.40 Type 2 diabetes mellitus with diabetic neuropathy, unspecified; E78.5 Hyperlipidemia, unspecified; E87.6 Hypokalemia; E88.09 Other disorders of plasma-protein metabolism, not elsewhere classified; D69.6 Thrombocytopenia, unspecified; E83.39 Other disorders of phosphorus metabolism; I10 Essential (primary) hypertension; Z79.4 Long term (current) use of insulin; Z79.84 Long term (current) use of oral hypoglycemic drugs; Z98.51 Tubal ligation status; Z68.24 Body mass index [BMI] 24.0-24.9, adult; Z28.310 Unvaccinated for COVID-19; Z79.899 Other long term (current) drug therapy
CPT/HCPCS: 36415; 71045; 71250; 74176; 74177; 76000; 80048; 80053; 80061; 80076; 81001; 81003; 81015; 81025; 82010; 82043; 82570; 82728; 82805; 82947; 83036; 83540; 83605; 83690; 83735; 84100; 84132; 84145; 84156; 84439; 84443; 84466; 84550; 85025; 85044; 87040; 87077; 87086; 87088; 87186; 87205; 87811; 93005; 94010; 94640; 96374; 96375; 97116; 97161; 99284; J0692; J0696; J1100; J1170; J1650; J1720; J1815; J2001; J2185; J2250; J2405; J2550; J2704; J2916; J3010; J3370; J3475; J3480; J7030; J7040; J7042; J7050; J7120; J7512; J7613; Q9967

== ENCOUNTER 2022-10-28 11:43 | Emergency (ER) | payer SELFPAY ==
--- OUTSIDE RECORDS SUMMARY | 2022-10-28 11:46 | XMS REPORT | Continuity of Care Document ---
:[address] [facility] t Address [address] [place] [address] [address] [place] [address] Care Team Providers Name Role Phone PCP, PATIENT DOES NOT HAVE A Primary Care Physician Unavaila ble ANGELIC HOLDEN Attending Clinician Unavailable Angelic Holden DO Attending Clinician VICK PENALOZA Attending Clinician Unavailable Vick Frye Attending Clinician Sanchez TAYLOR Attending Clinician Unavailable Sanchez Jarquin Attending Clinician Doctor Unassigned, [place] Attending Clinician Unavailable VICK PENALOZA Admitting Clinician [...] of routine routine 00:00: g of this [place] [facility]i gynecologi 00 note Me dical helen helen might be Branch examinatio examinatio different n n from the original. 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 Rubella Disease Active Univers immune immune 05-17 ity of 00:00: [place] 00 [facility] Dysmenorrh Dysmenorrh Disease Active U nivers ea ea 05-17 ity of 00:00: [place] 00 [facility] Allergies, Adverse Reactions, Alerts Allergy Allergy Status Severity Reaction(s) Onset Inactive Treating Comm ents Source Name Type Date Date Clinician NO KNOWN Drug Active [facility] ALLERGIE Class ity of [facility] Social History Social Habit Start Date Stop Date Quantity Comments Source Exposure to 2022-10-06 2022-10-16 Not sure [facility] SARS-CoV-2 00:00:00 19:25:00 [facility] (event) [place] Alcohol intake 2022-10-16 2022-10-16 Current University 00:00:00 00:00:00 non-drinker of [facility] alcohol (finding) [place] Tobacco use and 2013-05-17 2013-05-17 Smokeless tobacco Un iversity of exposure 00:00:00 00:00:00 non-user [facility] At [birth year] [facility] Smoking Status Start Date Stop Date Source Never smoked tobacco [facility] Medications Ordered Filled Start Stop Current Ordering [...] 10-16 medication it y of 19:24: s [address] naproxen 2021- No 500mg 500 mg, Univ ers (NAPROSYN) 03-01 Oral, ity of tablet 500 07:45: 06:52 ONCE, 1 Ronald as mg 00 :00 dose, On Medical Fri Branch 03/01/22 at 0245, Routine iopamidol 2021- No [id number] 120mL 120 mL, Univers (ISOVUE 03-01- Intravenou [...] [place] mg 00 :00 dose, On [facility] Branch 02/28/22 at 2345, STAT NaCl 0.9% 1000mL at 999 Uni vers (NS) bolus 03-01 05-20 mL/hr, ity of infusion 04:45: 05:19 1,000 mL, [place] as 1,000 mL 00 :00 IV Medical Infusion, Branch ONCE, 1 dose, On Radha 02/28/22 at 2345, STAT No known No Univers medications 02-28 ity of 22:35: [address] Branch gabapentin No 300mg 300 mg, Un molina (NEURONTIN) 01-0930 Oral, ity of capsule 300 03:45: 02:47 ONCE, 1 [place] mg 00 :00 dose, [facility] 01/08/22 at 2245, RHETT gabapentin 2021- No [id number] 100mg Take 1 Univers 100 mg 01-08 0409 [id number] capsule by ity of capsule 00:00: 04:59 mouth 3 [place] 00 :00 (three) Medical times Branch daily for 10 days. No known No Univers medications 05-17 ity of 11:32: [place] 08 [facility] Immunizations Ordered Filled Immunization Date Status Comments [facility] e Immunization Name Name Rubella 2008-02-10 Completed [facility] 00:00:00 [facility] Rubella 2008-02-10 Completed [facility] 00:00:00 [facility] Rubella 2008-02-10 Completed [facility] 00:00:00 [facility] Rubella 2008-02-10 Completed University of 00:00:00 [facility] Td 2005-05-17 Completed University of 00:00:00 [facility] Td 2005-05-17 Completed University of 00:00:00 [place] [facility] Td 2005-05-17 Completed University of 00:00:00 [facility] Branch TD, NOS 2005-05-17 Completed University of 00:00:00 [facility] Vital Signs Vital Name Observation Time Observation Value Comments Source Systolic blood 2022-10-17 01:29:00 144 mm[Hg] Univer sity of pressure [facility] Diastolic blood 2022-10-17 01:29:00 85 mm[Hg] Unive rsity of pressure [facility] Heart rate 2022-10-17 01:29:00 116 /min Universi ty of [facility] Body temperature 2022-10-17 01:29:00 38.5 Josee Univ ersity of [facility] Branch Respiratory rate 2022-10-17 01:29:00 18 /min Univ ersity of [facility] Body height 2022-10-17 01:29:00 152.4 cm Universi ty of [place] [facility] [place] Body weight 2022-10-17 01:29:00 57.153 kg Universi ty of [place] [facility] BMI 2022-10-17 01:29:00 24.61 kg/m2 Universi ty [facility] Oxygen saturation in 2022-10-17 01:29:00 100 /min University of Arterial blood by [facility] Pulse oximetry Branch Systolic blood 2022-03-01 07:00:00 136 mm[Hg] Univer sity of pressure [facility] Diastolic blood 2022-03-01 07:00:00 83 mm[Hg] Unive rsity of pressure [facility] Heart rate 2022-03-01 07:00:00 72 /min Universi ty of [facility] Respiratory rate 2022-03-01 07:00:00 14 /min Univ ersity of [facility] Oxygen saturation in 2022-03-01 07:00:00 98 /min University of Arterial blood by [facility] Pulse oximetry Branch Body temperature 2022-03-01 02:56:00 36.17 Josee Univ ersity of [facility] Body height 2022-03-01 02:56:00 152.4 cm Universi ty of [facility] Body weight 2022-03-01 02:56:00 54.432 kg [facility] BMI 2022-03-01 02:56:00 23.44 kg/m2 [facility] Systolic blood 2022-01-09 03:23:00 142 mm[Hg] Univer sity of pressure [facility] Diastolic blood 2022-01-09 03:23:00 77 mm[Hg] Unive [facility] Heart rate 2022-01-09 03:23:00 65 /min [facility] Respiratory rate 2022-01-09 03:23:00 18 /min [facility] Oxygen saturation in 2022-01-09 03:23:00 99 /min [facility] Arterial blood by [facility] Pulse oximetry [place] Body temperature 2022-01-09 01:40:00 36.83 Josee [facility] Body height 2022-01-09 01:40:00 152.4 cm [facility] Body weight 2022-01-09 01:40:00 58.968 kg [facility] BMI 2022-01-09 01:40:00 25.39 kg/m2 [facility] Procedures Procedure Date / Time Performing Clinician Source Performed RAPID INFLUENZA A/B 2022-10-17 01:33:00 Angelic Holden [facility] COVID-19 (ID NOW RAPID 2022-10-17 01:33:00 Angelic Holden [facility] TESTING) [facility] CONSENT/REFUSAL FOR 2022-10-17 01:23:24 [facility] US PELVIS COMPLETE WITH 2022-03-01 08:09:47 Vick Penaloza [facility] TRANSVAGINAL [facility] CT ABDOMEN PELVIS W 2022-03-01 05:39:15 Vick Penaloza [facility] CONTRAST [facility] POCT TEST 2022-03-01 03:59:00 Vick Penaloza [facility] LIPASE 2022-03-01 03:55:00 Vick Penaloza [place] [facility] COMP. METABOLIC PANEL 2022-03-01 03:55:[address] [facility] ([id number]) Medical Branch CBC WITH DIFF 2022-03-01 03:55:00 Vick Penaloza [facility] URINALYSIS 2022-03-01 03:55:00 Vick Penaloza [facility] NOTICE OF PRIVACY 2022-03-01 02:36:44 [facility] CONSENT/REFUSAL FOR 2022-03-01 02:36:31 Doctor Unassigned, No Un iversity of [place] DIAGNOSIS AND TREATMENT Name Medical Branch NOTICE OF PRIVACY 2022-01-09 01:30:37 [facility] CONSENT/REFUSAL FOR 2022-01-09 01:29:11 Doctor Unassigned, No Un iversity of [place] DIAGNOSIS AND TREATMENT Name [facility] Encounters Start End Encounter Admission Attending Care Care Encounter Source Date/Time Date/Time Type Type Clinicians Facility Department ID 2022-10-16 2022-10-16 Emergency X NAVIN [facility] ERT [id number] Univers 19:38:00 20:23:00 ANGELIC malcolm [facility] 2022-10-16 2022-10-16 Obdulia Holden [facility] [id number] Univers 19:38:00 20:23:00 Angelic HENDERSON [id number] ity [facility] [id number] [facility] [id number] [address] 2022-02-28 2022-03-01 Emergency X CA [facility] ERT [id number] Univers 21:58:00 03:33:00 VICK malcolm [facility] 2022-02-28 2022-03-01 Emergency Ca [facility] [id number] Univers 21:58:00 03:33:00 Vick HENDERSON [id number] i ty [facility] [id number] [facility] [id number] [address] 2022-01-08 2022-01-08 Emergency X Sanchez TAYLOR [facility] ERT [id number] Univers 20:47:00 22:37:00 ity of [facility] 2022-01-08 2022-01-08 Emergency Silverio, K [facility] [id number] Univers 20:47:00 22:37:00 Nicole HENDERSON [id number] i ty of [place] [id number] [facility] [id number] [facility] 084 Branch 2022-01-08 2022-01-08 Orders Doctor MELIZA [id number] Univers 00:00:00 00:00:00 Only Unassigned, TAISHA [id number] ity of [place] [facility] [id number] [place] [id number] [facility] 009 Branch 2021-06-19 2021-06-19 Emergency X [facility] ERT [id number] Univers 14:48:00 14:48:00 [facility] Results Test Description Test Time Test Comments Results Result Comments Source COMP. METABOLIC PANEL (53915) 2022-03-01 04:28:28 Test Item Value Reference Range Interpretation Comme nts NA (test code = 3573085914) 134 mmol/L 135-145 L K (test code = 9617475901) 4.3 mmol/L 3.5-5.0 CL (test code = 8818007727) 101 mmol/L 98-108 CO2 TOTAL (test code = 1156408575) 23 mmol/L 23-31 AGAP (test code = 2676408123) 2-16 BUN (test code = 3493374962) 16 mg/dL 7-23 GLUCOSE (test code = 5510928193) 340 mg/dL 70-110 H CREATININE (test code = 0.57 mg/dL 0.50-1.04 5089207815) TOTAL BILI (test code = 0.1 mg/dL 0.1-1.5 6796331510) CALCIUM (test code = 7090740804) 9.1 mg/dL 8.6-10.6 T PROTEIN (test code = 7095272519) 7.4 g/dL 6.3-8.2 ALBUMIN (test code = 5663685240) 4.2 g/dL 3.5-5.0 ALK PHOS (test code = 3197423222) 111 U/L 34-122 ALTv (test code = 1742-6) 11 U/L 5-35 AST(SGOT) (test code = 1138157806) 21 U/L 13-40 eGFR (test code = 9411030439) mL/min/1.73m2 RAFIQ (test code = RAFIQ) Association [...] tests). Lab Interpretation (test code = Abnormal 62572-2) [facility] 04[facility]27[facility]47 Test Item Value Reference Range Interpretation Comments LIPASE (test code = 4557538213) 115 U/L 0-220 Lab Interpretation (test code = Normal 16003-2) [facility] WITH [id number] 04:24:27 Test Item Value Reference Range Interpretation Comments WBC (test code = See_Comment [Automated 5590-2) message] The sy stem which generated this [...] RDW-SD (test code = 40.7 fL 39.0-49.9 70827-9) RDW-CV (test code = 14.6 % 12.0-15.5 788-0) PLT (test code = See_Comment [Automated 777-3) message] The sy stem which generated this result transmitted reference range : 166 - 358 10*3/ ?L. The reference r dona was not used to interpret this result as normal/abnormal . MPV (test code = 13.4 fL 9.5-12.9 H 61085-6) IPF % (test code = 13.7 % 1.3-7.7 H Platelet count 6197430290) measured by fluorescence method. NRBC/100 WBC (test See_Comment [Automat ed code = 3864182090) message] The system which generated this result transmitted reference range : 0.0 - 10.0 /100 WBCs. The refer ence range was not u sed to interpret th is result as normal/abnormal . NRBC x10^3 (test code <0.01 See_Comment [Auto mated = 0387108589) message] The s ystem which generated this result transmitted reference range : 10*3/?L. The reference range was not used to interpret this result as normal/abnormal . GRAN MAT (NEUT) % 51.8 % (test code = 770-8) IMM GRAN % (test code 0.30 % = 6174077786) LYMPH % (test code = 34.1 % 736-9) MONO % (test code = 9.5 % 5905-5) EOS % (test code = 4.0 % 713-8) BASO % (test code = 0.3 % 706-2) GRAN MAT x10^3(ANC) 3.39 10*3/uL 1.88-7.09 (test code = 3609368088) IMM GRAN x10^3 (test <0.03 0.00-0.06 code = 1033554248) LYMPH x10^3 (test code 2.23 10*3/uL 1.32-3.29 = 731-0) MONO x10^3 (test code 0.62 10*3/uL 0.33-0.92 = 742-7) EOS x10^3 (test code = 0.26 10*3/uL 0.03-0.39 711-2) BASO x10^3 (test code <0.03 0.01-0.07 = 704-7) Lab Interpretation Abnormal (test code = 82401-5) [facility] [id number] 03:59:00 Test Item Value Reference Range Interpretation Comments POCT PREG (test code = 1605) negative On board controls acceptable with present C Line (test code = 3574) POCT PREG LOT # (test code = 3575) [id number] POCT PREG TEST DATE (test 08/12/2023 code = 3576) Lab Interpretation (test code = Normal 55604-1) [facility]"
[2022-10-28] MEDS ORDERED: NA CHLORIDE 0.9% 1,000 ML ONE ×2 (12:21→14:27)
[2022-10-28] MEDS ORDERED: ONDANSETRON 4 MG/2 ML VIAL ONE (12:21)
[2022-10-28] MEDS ORDERED: MORPHINE 4 MG/ML SYR ONE (12:21)
[2022-10-28 12:26] LABS: Absolute Lymphocytes (CBC) 1.1 K/uL (0.7-4.9); Hematocrit 32.4 % (36.0-45.0); Lymphocytes % 9.6 % (15.3-44.8); MCV 77.7 fL (80-100); MPV 9.3 fL (7.6-11.3); RBC Red Blood Cell Count 4.17 M/uL (3.86-4.86)
[2022-10-28 12:31] LABS: Urine Blood 2+ (Negative); Urine Glucose 3+ (Negative); Urine Protein Negative (Negative)
[2022-10-28 12:58] LABS: Albumin 2.7 g/dL (3.4-5.0); Bilirubin Total 0.4 mg/dL (0.2-1.0); Potassium 4.3 mmol/L (3.5-5.1); Protein, Total 7.8 g/dL (6.4-8.2)
[2022-10-28 13:24] LABS: Urine Bacteria None Seen /HPF (<20); Urine Mucus Slight /HPF (None Seen); Urine RBC 21-50 /HPF (None Seen)
--- NOTE | 2022-10-28 13:46 | RAD REPORT ---
EXAM DESCRIPTION: CTAbdomen Pelvis W Contrast - 10/28/2022 1:25 pm CLINICAL HISTORY: Abdominal pain. Abdominal pain, post-op COMPARISON: Abdomen Pelvis W Contrast dated 10/24/2022; Abdomen Pelvis W Contrast dated 10/20/2022; Abdomen Pelvis W Contrast dated 10/21/2020; Abdomen Pelvis W Contrast dated 10/17/2020 TECHNIQUE: Biphasic CT imaging of the abdomen and pelvis was performed with 100 ml non-ionic IV cont rast. All CT scans are performed using dose optimization technique as appropriate and may include automated exposure control or mA/KV adjustment according to patient size. FINDINGS: The lung bases are clear. The liver, spleen, pancreas, adrenal glands and right kidney are within normal limits. Left double-J stent is in place. Proximal and distal pigtails are in appropriate position. No stone along the cours e of the stent. The left kidney is enlarged with heterogenous appearance and mild perinephric fat str anding. No bowel obstruction, free air, free fluid or abscess. The appendix is normal. No evidence of signi ficant lymphadenopathy. No suspicious bony findings. IMPRESSION: Left double-J stent is in place. Proximal and distal aspects are in expected position. L eft kidney is enlarged heterogenous and enhancement compatible with pyelonephritis, fractionally impr avelina since 10/24/2022.
--- NOTE | 2022-10-28 16:04 | EDPHYS ---
Physician Documentation [facility] Name: Tati Oliveros Age: 41 yrs Sex: Female : 1980 Arrival Date: 10/28/2022 Time: 11:46 Bed 20 Private MD: ED Physician Titi Betancourt HPI: 10/28 13:27 This 41 yrs old Female presents to ER via Wheelchair with complaints of rt Abdominal Pain. 13:27 The patient complains of pain in the left mid back. The pain does not radiate. Onset: rt The symptoms/episode began/occurred 2 week(s) ago. Modifying factors: The symptoms are alleviated by nothing. the symptoms are aggravated by nothing. Associated signs and symptoms: Pertinent positives: N/V, Pertinent negatives: diarrhea. Severity of pain: At its worst the pain was moderate. The patient has been recently seen by a physician: with similar presenting complaints. Patient had a recent admission for sepsis due to pyelonephritis. The patient did have a stent placed by urology. Was discharged by 3 days ago. States that the pain is similar in character to the stent pain, however, is mildly worsening. The patient states that she has had worsening nausea and vomiting. She states that her medications have not adequately relieved the symptoms. She has been taking her antibiotics as prescribed. She denies other acute complaints at this time. Symptoms are moderate in severity, no other aggravating or alleviating factors.. 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 - Social history:: Smoking status: Patient denies any tobacco usage or history of. - Family history:: not pertinent. ROS: 13:27 Constitutional: Negative for fever, chills, and weight loss, Eyes: Negative for injury, rt pain, redness, and discharge, Cardiovascular: Negative for chest pain, palpitations, and edema, Respiratory: Negative for shortness of breath, cough, wheezing, and pleuritic chest pain, MS/Extremity: Negative for injury and deformity, Skin: Negative for injury, rash, and discoloration, Neuro: Negative for headache, weakness, numbness, tingling, and seizure, Psych: Negative for depression, anxiety, suicide ideation, homicidal ideation, and hallucinations. 13:27 Abdomen/GI: Positive for abdominal pain, nausea and vomiting. 13:27 : Positive for urinary frequency, hematuria. Exam: 13:27 Constitutional: This is a well developed, well nourished patient who is awake, alert, rt and in no acute distress. Head/Face: Normocephalic, atraumatic. Eyes: Pupils equal round and reactive to light, extra-ocular motions intact. Lids and lashes normal. Conjunctiva and sclera are non-icteric and not injected. Cornea within normal limits. Periorbital areas with no swelling, redness, or edema. ENT: Nares patent. No nasal discharge, no septal abnormalities noted. Tympanic membranes are normal and external auditory canals are clear. Oropharynx with no redness, swelling, or masses, exudates, or evidence of obstruction, uvula midline. Mucous membranes moist. Chest/axilla: Normal chest wall appearance and motion. Nontender with no deformity. No lesions are appreciated. Cardiovascular: Regular rate and rhythm with a normal S1 and S2. No gallops, murmurs, or rubs. Normal PMI, no JVD. No pulse deficits. Respiratory: Lungs have equal breath sounds bilaterally, clear to auscultation and percussion. No rales, rhonchi or wheezes noted. No increased work of breathing, no retractions or nasal flaring. Abdomen/GI: Soft, non-tender, with normal bowel sounds. No distension or tympany. No guarding or rebound. No evidence of tenderness throughout. Skin: Warm, dry with normal turgor. Normal color with no rashes, no lesions, and no evidence of cellulitis. MS/ Extremity: Pulses equal, no cyanosis. Neurovascular intact. Full, normal range of motion. Neuro: Awake and alert, GCS 15, oriented to person, place, time, and situation. Cranial nerves II-XII grossly intact. Motor strength 5/5 in all extremities. Sensory grossly intact. Cerebellar exam normal. Normal gait. Psych: Awake, alert, with orientation to person, place and time. Behavior, mood, and affect are within normal limits. Vital Signs: 12:01 BP 134 / 75; Pulse 84; Resp 18; Temp 98.0; Pulse Ox 100% ; Weight 58.06 kg; Height 5 [facility] ft. 0 in. (152.40 cm); Pain 10/10; 12:30 BP 142 / 73; Pulse 76; Resp 16; Pulse Ox 100% on R/A; db 13:00 BP 137 / 77; Pulse 83; Resp 16; Pulse Ox 100% on R/A; db 14:30 BP 140 / 77; Pulse 73; Resp 16; Pulse Ox 99% on R/A; db 15:30 BP 131 / 77; Pulse 74; Resp 16; Pulse Ox 98% ; db 16:00 BP 142 / 77; Pulse 78; Resp 18; Pulse Ox 100% on R/A; db 12:01 Body Mass Index 25.00 (58.06 kg, 152.40 cm) [facility] MDM: 11:56 Patient medically screened. rt 16:05 Differential diagnosis: Nephrolithiasis, stent failure, pyelonephritis, renal abscess. rt Data reviewed: vital signs, nurses notes, old medical records, lab test result(s), radiologic studies. I considered the following discharge prescriptions or medication management in the emergency department Medications were administered in the Emergency Department. See MAR. Independent interpretation of the following test(s) in the Emergency Department CT Scan: My interpretation is No stones visualized, stent in place. Historians other than the Patient: Daughter/Son: Discussed medications with daughter. Care significantly affected by the following chronic conditions: Diabetes. Response to treatment: the patient's symptoms have markedly improved after treatment. ED course: Patient presents to the ED with continued pain and nausea 3 days after being discharged. Patient does not currently have any nausea medications, was unable to fill insulin as well as pain medications from the pharmacy. She does report and insomnia as well as continued pain. Symptoms have significantly improved with treatment in the ED. I suspect that the hyperglycemia and insomnia are due to steroid use. There is marked improvement of the glucose with IV fluids, will give 1 dose of insulin. The daughter states that the insulin should be in the pharmacy tomorrow. Will give patient pain, nausea medications. There is no bacteria in the urine. CT scan was obtained that shows continued decreasing of the hydronephrosis. There is no evidence of a renal abscess or stent complication. I believe that the pain is due to the stent. At this time, patient has no clinical indicators for sepsis, do not believe that she requires readmission at this time. Patient is stable to keep outpatient appointments. Return precautions were discussed.. 10/28 12:03 Order name: CBC with Diff; Complete Time: 13:00 rt 10/28 12:03 Order name: CMP; Complete Time: 13:20 rt 10/28 12:03 Order name: UA MICROSCOPIC; Complete Time: 13:26 rt 10/28 12:03 Order name: Urine Culture rt 10/28 12:03 Order name: Test, Serum; Complete Time: 13:20 rt 10/28 12:03 Order name: Lactate w/ 2H reflex if indic.; Complete Time: 13:00 rt 10/28 12:03 Order name: CT Abd/Pelvis - IV Contrast Only; Complete Time: 13:53 rt 10/28 12:31 Order name: Urine --Ancillary (enter results); Complete Time: 13:20 aa5 10/28 12:32 Order name: Urine Dipstick-Ancillary; Complete Time: 13:00 EDMS 10/28 16:11 Order name: Glucose, Ancillary Testing; Complete Time: 16:24 EDMS 10/28 12:03 Order name: Urine Dipstick-Ancillary (obtain specimen); Complete Time: 12:31 rt Administered Medications: 12:20 Drug: NS 0.9% 1000 ml Route: IV; Rate: 1 bolus; Site: left antecubital; db 15:45 Follow up: Response: No adverse reaction; IV Status: Completed infusion; IV Intake: db 1000ml 12:20 Drug: Zofran (Ondansetron) 4 mg Route: IVP; Site: left antecubital; db 14:30 Follow up: Response: No adverse reaction db 12:20 Drug: morphine 4 mg Route: IVP; Infused Over: 4 mins; Site: left antecubital; db 14:30 Follow up: Response: No adverse reaction db 14:25 Drug: NS 0.9% 1000 ml Route: IV; Rate: bolus; Site: left antecubital; db 16:06 Follow up: Response: No adverse reaction; IV Status: Completed infusion; IV Intake: db 1000ml 16:23 Drug: Insulin Regular Human 10 units {Co-Signature: bp (Elijah Peralta RN).} Route: db Sub-Q; Site: right upper arm; 16:32 Follow up: Response: No adverse reaction db Disposition Summary: 10/28/22 16:04 Discharge Ordered Location: Home rt Problem: an ongoing problem rt Symptoms: have improved rt Condition: Stable rt Diagnosis - Hyperglycemia, unspecified rt - Left flank pain rt Followup: rt - With: Private Physician - When: 2 - 3 days - Reason: Discharge Instructions: - Discharge Summary Sheet rt - Flank Pain, Adult rt - Hyperglycemia rt - Ureteral Stent Implantation rt - Ureteral Stent Implantation, Care After rt Forms: - Medication Reconciliation Form rt - Thank You Letter rt - Antibiotic Education rt - Prescription Opioid Use rt Prescriptions: - Tylenol-Codeine #3 300 mg-30 mg Oral - take 1 tablet by ORAL route every 6 hours; 18 tablet; Refills: 0, Product rt Selection Permitted - ondansetron 4 mg Oral - take 4 milligrams by SUBLINGUAL route every 6 hours; 15 tablet; Refills: 0, rt Product Selection Permitted Signatures: Dispatcher [employer] Patti Cueva, KADY RN jh5 Shahnaz Potts RN RN db Titi Betancourt MD MD rt Elijah Peralta RN bp
--- NOTE | 2022-10-28 16:04 | ER ---
Nurse's Notes [facility] Name: Tati Oliveros Age: 41 yrs Sex: Female : 1980 Arrival Date: 10/28/2022 Time: 11:46 Bed 20 Private MD: Diagnosis: Hyperglycemia, unspecified;Left flank pain Presentation: 10/28 12:01 Chief complaint: Patient states: i was here with kidney infection that got into my [facility] blood and they put stents to my kidney last week on Friday or Friday but I was discharged Friday. The pain got very bad yesterday. Coronavirus screen: Vaccine status: Patient reports being unvaccinated. Client denies travel out of the [place] in the last 14 days. Ebola Screen: Patient negative for fever greater than or equal to 101.5 degrees Fahrenheit, and additional compatible Ebola Virus Disease symptoms Patient denies exposure to infectious person. Patient denies travel to an Ebola-affected area in the 21 days before illness onset. Initial Sepsis Screen: Does the patient meet any 2 criteria? No. Patient's initial sepsis screen is negative. Does the patient have a suspected source of infection? No. Patient's initial sepsis screen is negative. Risk Assessment: Do you want to hurt yourself or someone else? Patient reports no desire to harm self or others. 12:01 Method Of Arrival: Wheelchair [facility] 12:01 Acuity: NICK 3 [facility] 13:00 Onset of symptoms was October 28, 2022. db Triage Assessment: 12:03 General: Appears uncomfortable, Behavior is calm, cooperative, appropriate for age. [facility] Pain: Complains of pain in abdomen. 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 - Social history:: Smoking status: Patient denies any tobacco usage or history of. - Family history:: not pertinent. Screenin:35 [facility] ED Fall Risk Assessment (Adult) History of falling in the last 3 months, db including since admission No falls in past 3 months (0 pts) Confusion or Disorientation No (0 pts) Intoxicated or Sedated No (0 pts) Impaired Gait No (0 pts) Mobility Assist Device Used No (0 pt) Altered Elimination No (0 pt) Score/Fall Risk Level 0 - 2 = Low Risk Oriented to surroundings, Maintained a safe environment. Abuse screen: Denies threats or abuse. Denies injuries from another. Nutritional screening: No deficits noted. Tuberculosis screening: No symptoms or risk factors identified. Assessment: 12:15 Reassessment: Patient appears in no apparent distress at this time. Patient and/or db family updated on plan of care and expected duration. Pain level reassessed. Patient is alert, oriented x 3, equal unlabored respirations, skin warm/dry/pink. PATIENT WITH LOWER BACK PAIN AND LOWER ABDOMINAL PAIN THAT STARTED TODAY. RECENT LEFT URINARY STENT PLACEMENT. General: Appears in no apparent distress. uncomfortable, Behavior is calm, cooperative. Pain: Complains of pain in back and abdomen. Neuro: Level of Consciousness is awake, alert, obeys commands, Oriented to person, place, time, situation. Cardiovascular: No deficits noted. Denies chest pain. Respiratory: No deficits noted. Airway is patent Respiratory effort is even, unlabored, Respiratory pattern is regular, symmetrical, Denies shortness of breath. GI: Abdomen is flat, non-distended, Bowel sounds present X 4 quads. Abd is soft Abdomen is tender to palpation X 4 quads. : Reports vaginal bleeding that is URINARY STENT. 12:16 Reassessment: PATIENT AMBULATORY TO RESTROOM ASSISTED BY FAMILY. db 13:00 Reassessment: Patient appears in no apparent distress at this time. Patient and/or db family updated on plan of care and expected duration. Pain level reassessed. Patient is alert, oriented x 3, equal unlabored respirations, skin warm/dry/pink. Patient states feeling better. Patient states symptoms have improved. 13:32 Reassessment: Patient appears in no apparent distress at this time. Patient and/or db family updated on plan of care and expected duration. Pain level reassessed. Patient is alert, oriented x 3, equal unlabored respirations, skin warm/dry/pink. PATIENT AMBULATORY TO THE RESTROOM. 16:01 Reassessment: Patient appears in no apparent distress at this time. Patient and/or db family updated on plan of care and expected duration. Pain level reassessed. Patient is alert, oriented x 3, equal unlabored respirations, skin warm/dry/pink. GLUCOSE [address] CONNOLLY. 16:32 Reassessment: Patient appears in no apparent distress at this time. Patient and/or db family updated on plan of care and expected duration. Pain level reassessed. Patient is alert, oriented x 3, equal unlabored respirations, skin warm/dry/pink. Patient states feeling better. Vital Signs: 12:01 BP 134 / 75; Pulse 84; Resp 18; Temp 98.0; Pulse Ox 100% ; Weight 58.06 kg; Height 5 [facility] ft. 0 in. (152.40 cm); Pain 10/10; 12:30 BP 142 / 73; Pulse 76; Resp 16; Pulse Ox 100% on R/A; db 13:00 BP 137 / 77; Pulse 83; Resp 16; Pulse Ox 100% on R/A; db 14:30 BP 140 / 77; Pulse 73; Resp 16; Pulse Ox 99% on R/A; db 15:30 BP 131 / 77; Pulse 74; Resp 16; Pulse Ox 98% ; db 16:00 BP 142 / 77; Pulse 78; Resp 18; Pulse Ox 100% on R/A; db 12:01 Body Mass Index 25.00 (58.06 kg, 152.40 cm) [facility] ED Course: 11:46 Patient arrived in ED. mr 11:46 Titi Connolly MD is Attending Physician. rt 12:03 Triage completed. [facility] 12:03 Arm band placed on right wrist. [facility] 12:10 Inserted saline lock: 22 gauge in left antecubital area, using aseptic technique. Blood db collected. 12:31 Shahnaz Potts, RN is Primary Nurse. db 12:35 Patient has correct armband on for positive identification. Bed in low position. Call db light in reach. Side rails up X 1. Pulse ox on. NIBP on. Warm blanket given. 13:27 CT Abd/Pelvis - IV Contrast Only In Process Unspecified. EDMS 15:30 No provider procedures requiring assistance completed. IV discontinued, intact, db bleeding controlled, No redness/swelling at site. Administered Medications: 12:20 Drug: NS 0.9% 1000 ml Route: IV; Rate: 1 bolus; Site: left antecubital; db 15:45 Follow up: Response: No adverse reaction; IV Status: Completed infusion; IV Intake: db 1000ml 12:20 Drug: Zofran (Ondansetron) 4 mg Route: IVP; Site: left antecubital; db 14:30 Follow up: Response: No adverse reaction db 12:20 Drug: morphine 4 mg Route: IVP; Infused Over: 4 mins; Site: left antecubital; db 14:30 Follow up: Response: No adverse reaction db 14:25 Drug: NS 0.9% 1000 ml Route: IV; Rate: bolus; Site: left antecubital; db 16:06 Follow up: Response: No adverse reaction; IV Status: Completed infusion; IV Intake: db 1000ml 16:23 Drug: Insulin Regular Human 10 units {Co-Signature: bp (Elijah Peralta RN).} Route: db Sub-Q; Site: right upper arm; 16:32 Follow up: Response: No adverse reaction db Medication: 12:30 VIS not applicable for this client. db Intake: 15:45 IV: 1000ml; Total: 1000ml. db 16:06 IV: 1000ml; Total: 2000ml. db Outcome: 15:30 Discharged to home ambulatory. db 15:30 Condition: stable 15:30 Discharge instructions given to patient, family, Instructed on discharge instructions, follow up and referral plans. Prescriptions given X 2. 16:04 Discharge ordered by . rt 16:35 Patient left the ED. db Signatures: Dispatcher [employer] Joi Malik HerbertPatti, RN RN [id number] Shahnaz Potts, RN RN db Titi Connolly MD MD rt Elijah Peralta RN bp
[2022-10-28] MEDS ORDERED: INSULIN -REGULAR HUMAN 50 UNIT/0.5 ML ML ONE (16:25)
[2022-10-28 17:08] VITALS: TEMP 98
[2022-10-28 17:14] VITALS: BP 142/77; O2SAT 100
== END 2022-10-28 16:35 | disposition home or self-care (01) ==
LOC: ER 11:43
DX: E11.65 Type 2 diabetes mellitus with hyperglycemia (principal); R11.2 Nausea with vomiting, unspecified
CPT/HCPCS: 36415; 74177; 80053; 81003; 81015; 81025; 82947; 83605; 84703; 85025; 87086; 87088; 96361; 96372; 96374; 96375; 99284; J1815; J2405; J7030; Q9967

== ENCOUNTER 2022-11-03 23:19 | Inpatient (IN) | payer SELFPAY ==
--- OUTSIDE RECORDS SUMMARY | 2022-11-03 23:23 | XMS REPORT | Continuity of Care Document ---
:1980 Author Organization [facility] t Address [address] [place] [address] [address] [place] [address] Care Team Providers Name Role Phone PCP, PATIENT DOES NOT HAVE A Primary Care Physician Unavaila ble ANGELIC HOLDEN Attending Clinician Unavailable Angelic Holden DO Attending Clinician VICK PENALOZA Attending Clinician Unavailable Vick Frye Attending Clinician Sanchez TAYLOR Attending Clinician Unavailable Sanchez Jarquin Attending Clinician Doctor Unassigned, [place] Attending Clinician Unavailable VICK PENALOZA Admitting Clinician [...] of routine routine 00:00: g of this [place] gynecologi gynecologi 00 note Me dical helen helen might be Branch examinatio examinatio different n n from the original. 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 Rubella Disease Active Univers immune immune 05-17 ity of 00:00: [place] 00 [facility] Dysmenorrh Dysmenorrh Disease Active U nivers ea ea 05-17 ity of 00:00: [place] 00 [facility] Allergies, Adverse Reactions, Alerts Allergy Allergy Status Severity Reaction(s) Onset Inactive Treating Comm ents Source Name Type Date Date Clinician NO KNOWN Drug Active [facility] ALLERGIE Class ity of [facility] Social History Social Habit Start Date Stop Date Quantity Comments Source Exposure to 2022-10-06 2022-10-16 Not sure [facility] SARS-CoV-2 00:00:00 19:25:00 [facility] (event) [place] Alcohol intake 2022-10-16 2022-10-16 Current University 00:00:00 00:00:00 non-drinker of [facility] alcohol (finding) [place] Tobacco use and 2013-05-17 2013-05-17 Smokeless tobacco Un iversity of exposure 00:00:00 00:00:00 non-user [facility] Sex Assigned At [birth year] [facility] 00:[facility] 00:00:00 [facility] Smoking Status Start Date Stop Date Source Never smoked tobacco [facility] Medications Ordered Filled Start Stop Current Ordering [...] 10-16 medication it y of 19:24: s [address] naproxen 2021- No 500mg 500 mg, Univ ers (NAPROSYN) 03-01 Oral, ity of tablet 500 07:45: 06:52 ONCE, 1 Ronald as mg 00 :00 dose, On Medical Fri Branch 03/01/22 at 0245, Routine iopamidol 2021- No [id number] 120mL 120 mL, Univers (ISOVUE 03-01- Intravenou [...] [place] mg 00 :00 dose, On [facility] Branch 02/28/22 at 2345, STAT NaCl 0.9% 1000mL at 999 Uni vers (NS) bolus 03-01 05-20 mL/hr, ity of infusion 04:45: 05:19 1,000 mL, Ronald as 1,000 mL 00 :00 IV Medical Infusion, Branch ONCE, 1 dose, On Radha 02/28/22 at 2345, STAT No known No Univers medications 02-28 ity of 22:35: [address] Branch gabapentin No 300mg 300 mg, Un molina (NEURONTIN) 01-0930 Oral, ity of capsule 300 03:45: 02:47 ONCE, 1 [place] mg 00 :00 [facility], [facility] 01/08/22 at 2245, RHETT gabapentin 2021- No [id number] 100mg Take 1 Univers 100 mg 01-08 0409 [id number] capsule by ity of capsule 00:00: 04:59 mouth 3 [place] 00 :00 (three) Medical times Branch daily for 10 days. No known No Univers medications 05-17 ity of 11:32: [place] 08 [facility] Immunizations Ordered Filled Immunization Date Status Comments [facility] e Immunization Name Name Rubella 2008-02-10 Completed [facility] 00:00:00 [facility] Rubella 2008-02-10 Completed [facility] 00:00:00 [facility] Rubella 2008-02-10 Completed [facility] 00:00:00 [facility] Rubella 2008-02-10 Completed University of 00:00:00 [place] [facility] Td 2005-05-17 Completed University of 00:00:00 [place] [facility] Td 2005-05-17 Completed University of 00:00:00 [place] [facility] Td 2005-05-17 Completed University of 00:00:00 [facility] Branch TD, NOS 2005-05-17 Completed University of 00:00:00 [facility] Vital Signs Vital Name Observation Time Observation Value Comments Source Systolic blood 2022-10-17 01:29:00 144 mm[Hg] Univer sity of pressure [facility] Diastolic blood 2022-10-17 01:29:00 85 mm[Hg] Unive rsity of pressure [facility] Heart rate 2022-10-17 01:29:00 116 /min Universi ty of [facility] Body temperature 2022-10-17 01:29:00 38.5 Josee Univ ersity of [facility] Branch Respiratory rate 2022-10-17 01:29:00 18 /min Univ ersity of [facility] Body height 2022-10-17 01:29:00 152.4 cm Universi ty of [place] Medical [place] Body weight 2022-10-17 01:29:00 57.153 kg Universi ty of [place] [facility] BMI 2022-10-17 01:29:00 24.61 kg/m2 Universi ty [facility] Oxygen saturation in 2022-10-17 01:29:00 100 /min University of Arterial blood by [facility] Pulse oximetry Branch Systolic blood 2022-03-01 07:00:00 136 mm[Hg] Univer sity of pressure [facility] Diastolic blood 2022-03-01 07:00:00 83 mm[Hg] Unive rsity of pressure [facility] Heart rate 2022-03-01 07:00:00 72 /min Universi ty of [facility] Respiratory rate 2022-03-01 07:00:00 14 /min Univ ersity of [facility] Oxygen saturation in 2022-03-01 07:00:00 98 /min University of Arterial blood by [facility] Pulse oximetry Branch Body temperature 2022-03-01 02:56:00 36.17 Josee Univ ersity of [facility] Body height 2022-03-01 02:56:00 152.4 cm Universi ty of [facility] Body weight 2022-03-01 02:56:00 54.432 kg [facility] BMI 2022-03-01 02:56:00 23.44 kg/m2 [facility] Systolic blood 2022-01-09 03:23:00 142 mm[Hg] Univer sity of pressure [facility] Diastolic blood 2022-01-09 03:23:00 77 mm[Hg] Unive [facility] Heart rate 2022-01-09 03:23:00 65 /min [facility] Respiratory rate 2022-01-09 03:23:00 18 /min [facility] Oxygen saturation in 2022-01-09 03:23:00 99 /min [facility] Arterial blood by [facility] Pulse oximetry [place] Body temperature 2022-01-09 01:40:00 36.83 Josee [facility] Body height 2022-01-09 01:40:00 152.4 cm [facility] Body weight 2022-01-09 01:40:00 58.968 kg [facility] BMI 2022-01-09 01:40:00 25.39 kg/m2 [facility] Procedures Procedure Date / Time Performing Clinician Source Performed RAPID INFLUENZA A/B 2022-10-17 01:33:00 Angelic Holden [facility] COVID-[facility] (ID NOW RAPID 2022-10-17 01:33:00 Angelic Holden [facility] TESTING) [facility] CONSENT/REFUSAL FOR 2022-10-17 01:23:24 Doctor [facility]assigned, [facility] US PELVIS COMPLETE WITH 2022-03-01 08:09:47 Vick Penaloza [facility] TRANSVAGINAL [facility] CT ABDOMEN PELVIS W 2022-03-01 05:39:15 Vick Penaloza [facility] CONTRAST [facility] POCT TEST 2022-03-01 03:59:00 Vick Penaloza [facility] LIPASE 2022-03-01 03:55:00 Vick Penaloza [facility] [facility] COMP. METABOLIC PANEL 2022-03-01 03:55:00 Vick Penaloza [facility] ([id number]) Medical Branch CBC WITH DIFF 2022-03-01 03:55:00 Vick Penaloza [facility] URINALYSIS 2022-03-01 03:55:00 Vick Penaloza [facility] NOTICE OF PRIVACY 2022-03-01 02:36:44 [facility]assigned, [facility] CONSENT/REFUSAL FOR 2022-03-01 02:36:31 Doctor Unassigned, No Un iversity of [place] DIAGNOSIS AND TREATMENT Name Medical Branch NOTICE OF PRIVACY 2022-01-09 01:30:37 Doctor [facility]assigned, No [facility] Branch CONSENT/REFUSAL FOR 2022-01-09 01:29:11 Doctor Unassigned, No Un iversity of [place] DIAGNOSIS AND TREATMENT Name [facility] Encounters Start End Encounter Admission Attending Care Care Encounter Source Date/Time Date/Time Type Type Clinicians Facility Department ID 2022-10-16 2022-10-[address] [facility] ERT [id number] Univers 19:38:00 20:23:00 ANGELIC malcolm [facility] 2022-10-16 2022-10-[address] [facility] [id number] Univers 19:38:00 20:23:00 Angelic HENDERSON [id number] ity [facility] [id number] [facility] [id number] [address] 2022-02-28 2022-03-[address] [facility] ERT [id number] Univers 21:58:00 03:33:00 VICK malcolm [facility] 2022-02-28 2022-03-[address] [facility] [id number] Univers 21:58:00 03:33:00 Vick HENDERSON [id number] i ty [facility] [id number] [facility] [id number] [address] 2022-01-08 2022-01-08 Emergency X Sanchez TAYLOR [facility] ERT [id number] Univers 20:47:00 22:37:00 ity of [facility] 2022-01-08 2022-01-08 Emergency Silverio, K [facility] [id number] Univers 20:47:00 22:37:00 Nicole HENDERSON [id number] i ty of [place] [id number] [facility] [id number] [facility] 084 Branch 2022-01-08 2022-01-08 Orders Doctor MELIZA [id number] Univers 00:00:00 00:00:00 Only Unassigned, TAISHA [id number] ity of [place] [facility] [id number] Ronald [id number] [facility] 009 Branch 2021-06-19 2021-06-[address] [facility] ERT [id number] Univers 14:48:00 14:48:00 [facility] Results Test Description Test Time Test Comments Results Result Comments Source COMP. METABOLIC PANEL (63966) 2022-03-01 04:28:28 Test Item Value Reference Range Interpretation Comme nts NA (test code = 7251601352) 134 mmol/L 135-145 L K (test code = 4795906767) 4.3 mmol/L 3.5-5.0 CL (test code = 0322240017) 101 mmol/L 98-108 CO2 TOTAL (test code = 2744716170) 23 mmol/L 23-31 AGAP (test code = 7813268672) 2-16 BUN (test code = 7925128079) 16 mg/dL 7-23 GLUCOSE (test code = 7132984499) 340 mg/dL 70-110 H CREATININE (test code = 0.57 mg/dL 0.50-1.04 2539774978) TOTAL BILI (test code = 0.1 mg/dL 0.1-1.1 6074892197) CALCIUM (test code = 9165859816) 9.1 mg/dL 8.6-10.6 T PROTEIN (test code = 9582465511) 7.4 g/dL 6.3-8.2 ALBUMIN (test code = 7950811320) 4.2 g/dL 3.5-5.0 ALK PHOS (test code = 0732254340) 111 U/L 34-122 ALTv (test code = 1742-6) 11 U/L 5-35 AST(SGOT) (test code = 0521061086) 21 U/L 13-40 eGFR (test code = 8656444388) mL/min/1.73m2 RAFIQ (test code = RAFIQ) Association [...] tests). Lab Interpretation (test code = Abnormal 10189-0) [facility] 04:27:47 Test Item Value Reference Range Interpretation Comments LIPASE (test code = 2454388184) 115 U/L 0-220 Lab Interpretation (test code = Normal 44165-6) [facility] [place] [facility] WITH [id number] 04:24:27 Test Item Value Reference Range Interpretation Comments WBC (test code = See_Comment [Automated 0790-2) message] The sy stem which generated this [...] RDW-SD (test code = 40.7 fL 39.0-49.9 69188-8) RDW-CV (test code = 14.6 % 12.0-15.5 788-0) PLT (test code = See_Comment [Automated 777-3) message] The sy stem which generated this result transmitted reference range : 166 - 358 10*3/ ?L. The reference r dona was not used to interpret this result as normal/abnormal . MPV (test code = 13.4 fL 9.5-12.9 H 69158-5) IPF % (test code = 13.7 % 1.3-7.7 H Platelet count 0474269459) measured by fluorescence method. NRBC/100 WBC (test See_Comment [Automat ed code = 4406943023) message] The system which generated this result transmitted reference range : 0.0 - 10.0 /100 WBCs. The refer ence range was not u sed to interpret th is result as normal/abnormal . NRBC x10^3 (test code <0.01 See_Comment [Auto mated = 2271441150) message] The s ystem which generated this result transmitted reference range : 10*3/?L. The reference range was not used to interpret this result as normal/abnormal . GRAN MAT (NEUT) % 51.8 % (test code = 770-8) IMM GRAN % (test code 0.30 % = 5914208695) LYMPH % (test code = 34.1 % 736-9) MONO % (test code = 9.5 % 5905-5) EOS % (test code = 4.0 % 713-8) BASO % (test code = 0.3 % 706-2) GRAN MAT x10^3(ANC) 3.39 10*3/uL 1.88-7.09 (test code = 8825189334) IMM GRAN x10^3 (test <0.03 0.00-0.06 code = 5280801941) LYMPH x10^3 (test code 2.23 10*3/uL 1.32-3.29 = 731-0) MONO x10^3 (test code 0.62 10*3/uL 0.33-0.92 = 742-7) EOS x10^3 (test code = 0.26 10*3/uL 0.03-0.39 711-2) BASO x10^3 (test code <0.03 0.01-0.07 = 704-7) Lab Interpretation Abnormal (test code = 09975-3) [facility] [place] [facility] [id number] 03:59:00 Test Item Value Reference Range Interpretation Comments POCT PREG (test code = 1605) negative On board controls acceptable with present C Line (test code = 3574) POCT PREG LOT # (test code = 3575) [id number] POCT PREG TEST DATE (test 08/12/2023 code = 3576) Lab Interpretation (test code = Normal 95824-0) [facility]"
[2022-11-04] LABS: Urine Blood Trace-intact (Negative); Urine Glucose 2+ (Negative); Urine Protein Negative (Negative); Urine Specific Gravity 1.015 (1.005-1.030); Urine pH 8.5 (5.0-7.0)
[2022-11-04] MEDS ORDERED: FAMOTIDINE 20 MG/2 ML VIAL IV ONE
[2022-11-04] MEDS ORDERED: MORPHINE 4 MG/ML SYR ONE
[2022-11-04] MEDS ORDERED: NA CHLORIDE 0.9% 1,000 ML ONE ×3 (00:01→03:56)
[2022-11-04 00:04] LABS: Hematocrit 29.2 % (36.0-45.0); MPV 9.2 fL (7.6-11.3); RBC Red Blood Cell Count 3.79 M/uL (3.86-4.86)
[2022-11-04 00:29] LABS: ALT/SGPT < 10 U/L (13-56); AST/SGOT 13 U/L (15-37); Albumin 2.7 g/dL (3.4-5.0); Alkaline Phosphatase 109 U/L (45-117); BUN Blood Urea Nitrogen 6 mg/dL (7-18); Bicarbonate 26 mmol/L (21-32); Bilirubin Total 0.3 mg/dL (0.2-1.0); Glomerular Filtration Rate 58 ml/min (=/>90); Glucose Level 438 mg/dL (74-106); Lipase 733 U/L (73-393); Potassium 4.6 mmol/L (3.5-5.1); Protein, Total 8.1 g/dL (6.4-8.2); Sodium Level 132 mmol/L (136-145)
[2022-11-04 00:38] LABS: Urine Bacteria None Seen /HPF (<20); Urine Mucus Slight /HPF (None Seen); Urine RBC <5 /HPF (None Seen)
[2022-11-04 01:21] LABS: SARS-CoV-2 Antigen Rapid Res Negative (Negative)
--- NOTE | 2022-11-04 01:27 | ER ---
Nurse's Notes [facility] Name: Tati Oliveros Age: 41 yrs Sex: Female : 1980 Arrival Date: 11/03/2022 Time: : Bed 6 Private MD: Diagnosis: Abdominal pain, unspecified;Diabetes mellitus due to underlying condition with hyperglycemia;Severe sepsis without septic shock;Pyelonephritis acute Presentation: 11/03 23:30 Chief complaint: Patient's son or daughter states: pt had stent placed to left kidney a bb couple of weeks ago and was told there would be some pain but tonight the pain became significantly worse. Coronavirus screen: At this time, the client does not indicate any symptoms associated with coronavirus-19. Ebola Screen: No symptoms or risks identified at this time. Initial Sepsis Screen: Does the patient meet any 2 criteria? No. Patient's initial sepsis screen is negative. Does the patient have a suspected source of infection? No. Patient's initial sepsis screen is negative. Risk Assessment: Do you want to hurt yourself or someone else? Patient reports no desire to harm self or others. Onset of symptoms was November 03, 2022. 23:30 Method Of Arrival: Wheelchair bb 23:30 Acuity: NICK 3 bb Triage Assessment: 23:35 General: see nursing assessment. 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 - Social history:: Smoking status: Patient denies any tobacco usage or history of. Screenin:35 [facility] ED Fall Risk Assessment (Adult) History of falling in the last 3 months, pf1 including since admission No falls in past 3 months (0 pts) Confusion or Disorientation No (0 pts) Intoxicated or Sedated No (0 pts) Impaired Gait No (0 pts) Mobility Assist Device Used No (0 pt) Altered Elimination No (0 pt) Score/Fall Risk Level 0 - 2 = Low Risk Oriented to surroundings, Maintained a safe environment, Educated pt \T\ family on fall prevention, incl call for assistance when getting out of bed, Assessed \T\ reinforced patient's understanding of fall precautions, Provided non-skid footwear, Hourly rounding (assess needs \T\ fall precautionary measures) done, Used ambulatory aids as needed (educated on \T\ assisted with), Used gait belt as appropriate. 23:35 Abuse screen: Denies threats or abuse. Nutritional screening: No deficits noted. pf1 Tuberculosis screening: No symptoms or risk factors identified. Assessment: 23:35 General: Appears uncomfortable, well groomed, well developed, Behavior is crying. pf1 23:35 General: Patient stated left side kidney stent placed [address] Durand and pf1 was admitted 2 weeks ago for E. Coli infection and was hospitalized for 1 week.. Pain: Complains of pain in Patient C/O left flank pain with CVA tenderness,onset 2 weeks, worse in the past 1 hour and upper abdominal pain x 2 days. Neuro: No deficits noted. Level of Consciousness is awake, alert, obeys commands, Oriented to person, place, time, situation. Cardiovascular: No deficits noted. Capillary refill < 3 seconds Patient's skin is warm and dry. Respiratory: No deficits noted. Airway is patent Trachea midline Respiratory effort is even, unlabored, Respiratory pattern is regular, symmetrical. GI: Abdomen is flat, non-distended, Bowel sounds present X 4 quads. Abd is soft Abdomen is tender to palpation in right upper quadrant Reports upper abdominal pain, diarrhea, nausea, vomiting, patient c/o vomiting x 1 episode today and diarrhea x 3 episodes today. : Reports pain in left flank(s), Pain is 10 out of 10 on a pain scale. EENT: No deficits noted. No signs and/or symptoms were reported regarding the EENT system. Derm: No deficits noted. No signs and/or symptoms reported regarding the dermatologic system. Musculoskeletal: No deficits noted. No signs and/or symptoms reported regarding the musculoskeletal system. 11/04 00:30 Reassessment: Patient appears in no apparent distress at this time. Patient and/or pf1 family updated on plan of care and expected duration. Pain level reassessed. Patient is alert, oriented x 3, equal unlabored respirations, skin warm/dry/pink. Patient states feeling better. Patient states symptoms have improved. 01:44 Reassessment: Patient and/or family updated on plan of care and expected duration. Pain aa9 level reassessed. Patient is alert, oriented x 3, equal unlabored respirations, skin warm/dry/pink. family at beside, denied concerns. Vital Signs: 11/03 23:30 BP 144 / 82; Pulse 119; Resp 20 S; Temp 99.1(O); Pulse Ox 99% on R/A; Weight 54.43 kg bb (R); Height 4 ft. 11 in. (149.86 cm) (R); Pain 10/10; 11/04 00:00 BP 125 / 70; Pulse 111; Resp 18; Pulse Ox 97% on R/A; Pain 10/10; pf1 01:30 BP 123 / 67; Pulse 110; Resp 18; Pulse Ox 100% on R/A; Pain 0/10; pf1 11/03 23:30 Body Mass Index 24.24 (54.43 kg, 149.86 cm) bb ED Course: 11/03 23:22 Patient arrived in ED. ja2 23:27 Hugo Monroy PA is PHCP. cp 23:27 Titi Betancourt MD is Attending Physician. cp 23:31 Triage completed. bb 23:31 Arm band placed on Patient placed in an exam room, on a stretcher, on pulse oximetry. bb Family accompanied patient. 23:36 Goldie mojica, RN is Primary Nurse. pf1 23:50 No provider procedures requiring assistance completed. Inserted saline lock: 20 gauge pf1 in right antecubital area, using aseptic technique. Blood collected. 11/04 00:04 CBC with Diff Sent. pf1 00:04 CMP Sent. pf1 00:04 Lipase Sent. pf1 00:04 Urine Microscopic Only Sent. pf1 00:05 Lactate w/ 2H reflex if indic. Sent. pf1 00:11 US Abdomen Limited: gallbladder In Process Unspecified. EDMS 00:39 Notified Nurse Practitioner and/or Physician Vocational Horticulture Instructor of a critical lab result(s), bb lactate of 3.3, glucose of 438 Hugo THOMAS notified. 00:44 CT Stone Protocol In Process Unspecified. EDMS 00:53 SARS RAPID Sent. aa9 00:58 XRAY Chest (1 view) In Process Unspecified. EDMS 01:26 Audelia Ríos MD is Hospitalizing Provider. cp 01:36 Inserted saline lock: 22 gauge in left antecubital area, using aseptic technique. Blood aa9 collected. 01:43 Blood Culture Adult (2) Sent. aa9 01:45 Patient has correct armband on for positive identification. Placed in gown. Bed in low aa9 position. Side rails up X2. Adult w/ patient. 03:58 Patient admitted, IV remains in place. aa9 Administered Medications: 00:00 Drug: NS 0.9% 1000 ml Route: IV; Rate: 1 bolus; Site: right antecubital; pf1 01:44 Follow up: Response: No adverse reaction; IV Status: Completed infusion; IV Intake: aa9 1000ml 00:00 Drug: Pepcid (famotidine) 20 mg Route: IVP; Site: right antecubital; pf1 01:43 Follow up: Response: No adverse reaction aa9 00:00 Drug: Zofran (Ondansetron) 4 mg Route: IVP; Site: right antecubital; pf1 01:43 Follow up: Response: No adverse reaction aa9 00:00 Drug: morphine 4 mg Route: IVP; Infused Over: 4 mins; Site: right antecubital; pf1 01:43 Follow up: Response: No adverse reaction aa9 00:50 Drug: NS 0.9% 1000 ml Route: IV; Rate: 1 bolus; Site: right antecubital; aa9 03:59 Follow up: Response: No adverse reaction; IV Status: Completed infusion; IV Intake: aa9 1000ml 00:50 Drug: Insulin Regular Human 10 units {Co-Signature: as6 (Preston Romano RN).} Route: aa9 IVP; Site: right antecubital; 01:43 Follow up: Response: No adverse reaction; Blood pressure is lowered aa9 02:17 Drug: Meropenem 1 grams Route: IV; Rate: calculated rate; Site: right antecubital; aa9 03:59 Follow up: Response: No adverse reaction; IV Status: Completed infusion; IV Intake: aa9 100ml Medication: 00:11 VIS not applicable for this client. pf1 Intake: 01:44 IV: 1000ml; Total: 1000ml. aa9 03:59 IV: 100ml; Total: 1100ml. aa9 03:59 IV: 1000ml; Total: 2100ml. aa9 Outcome: 01:26 Decision to Hospitalize by Provider. cp 03:58 Admitted to ER Hold. Please see [facility] for further documentation. aa9 03:58 Condition: stable 03:58 Instructed on the need for admit. 13:10 Patient left the ED. ap3 Signatures: Dispatcher [employer] EDJazzmine Lyons, RN RN bb Hugo Monroy PA PA cp Nancy Gallo RN RN ap3 Patti Varner Aylin, RN RN aa9 Goldie mojica RN RN pf1 Preston Romano RN as6 Corrections: (The following items were deleted from the chart) 00:56 00:53 NS 0.9% 1000 ml IV at 1 bolus in left antecubital aa9 aa9
--- NOTE | 2022-11-04 01:27 | EDPHYS ---
Physician Documentation [facility] Name: Tati Oliveros Age: 41 yrs Sex: Female : 1980 Arrival Date: 11/03/2022 Time: 23:22 Bed 6 Private MD: ED Physician Titi Betancourt HPI: 11/03 23:40 This 41 yrs old Female presents to ER via Wheelchair with complaints of cp Abdominal Pain, Back Injury, Leg Pain. 23:40 The patient presents with abdominal pain in the upper abdomen, left flank. Onset: The cp symptoms/episode began/occurred today. Associated signs and symptoms: Pertinent positives: nausea and vomiting, diarrhea. 23:40 Severity of pain: in the emergency department the pain is unchanged despite home cp interventions. 23:40 Patient with history of left kidney stent placement last month by DR Durand. Reports cp left flank pain became worse today. 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 - Social history:: Smoking status: Patient denies any tobacco usage or history of. ROS: 23:45 Constitutional: Positive for poor PO intake, Negative for body aches, chills, fever. cp 23:45 Eyes: Negative for injury, pain, redness, and discharge. cp 23:45 Cardiovascular: Negative for chest pain, edema, palpitations. 23:45 Respiratory: Negative for cough, shortness of breath, wheezing. 23:45 Abdomen/GI: Positive for abdominal pain, nausea and vomiting, Negative for diarrhea, cp constipation. 23:45 Back: Positive for pain at rest. 23:45 Skin: Negative for rash. cp 23:45 Neuro: Negative for altered mental status, dizziness, headache, weakness. 23:45 All other systems are negative. Exam: 23:50 Constitutional: The patient appears in no acute distress, alert, awake, cp non-diaphoretic, non-toxic, well developed, well nourished, in obvious pain, uncomfortable. 23:50 Head/Face: Normocephalic, atraumatic. cp 23:50 Eyes: Periorbital structures: appear normal, Conjunctiva: normal, no exudate, no injection, Sclera: no appreciated abnormality, Lids and lashes: appear normal, bilaterally. 23:50 ENT: External ear(s): are unremarkable, Nose: is normal, Mouth: Lips: moist, Oral mucosa: moist, Posterior pharynx: is normal, airway is patent, no erythema, no exudate. 23:50 Neck: ROM/movement: is normal, is supple, without pain, no range of motions limitations. 23:50 Chest/axilla: Inspection: normal. 23:50 Cardiovascular: Rate: tachycardic, Rhythm: regular, Edema: is not appreciated, JVD: is not appreciated. 23:50 Respiratory: the patient does not display signs of respiratory distress, Respirations: normal, no use of accessory muscles, no retractions, labored breathing, is not present, Breath sounds: are clear throughout, no decreased breath sounds, no stridor, no wheezing. 23:50 Abdomen/GI: Inspection: distension, that is mild, Bowel sounds: active, all quadrants, Palpation: soft, in all quadrants, severe abdominal tenderness, in the right upper quadrant and left upper quadrant, voluntary guarding, is elicited in the right upper quadrant and left upper quadrant. 23:50 Back: pain, that is severe, of the mid back area, ROM is painful, with all movement. 23:50 Skin: no rash present. 23:50 Neuro: Orientation: to person, place \T\ time. Mentation: is normal, Motor: moves all fours, strength is normal, Sensation: is normal. Vital Signs: 23:30 BP 144 / 82; Pulse 119; Resp 20 S; Temp 99.1(O); Pulse Ox 99% on R/A; Weight 54.43 kg bb (R); Height 4 ft. 11 in. (149.86 cm) (R); Pain 10/; 11/04 00:00 BP 125 / 70; Pulse 111; Resp 18; Pulse Ox 97% on R/A; Pain 10/10; pf1 01:30 BP 123 / 67; Pulse 110; Resp 18; Pulse Ox 100% on R/A; Pain 0/10; pf1 11/03 23:30 Body Mass Index 24.24 (54.43 kg, 149.86 cm) bb MDM: 11/03 23:32 Patient medically screened. cp 11/04 01:25 Data reviewed: vital signs, nurses notes, lab test result(s), radiologic studies, CT cp scan, plain films, ultrasound. 01:25 Consideration of Admission/Observation Patient was admitted/placed on observation. cp Management of patient was discussed with the following: Hospitalist: Altaf Valente. I considered the following discharge prescriptions or medication management in the emergency department Medications were administered in the Emergency Department. See MAR. Historians other than the Patient: Daughter/Son: Daughter interprets and provides HPI. Care significantly affected by the following chronic conditions: Diabetes. Counseling: I had a detailed discussion with the patient and/or guardian regarding: the historical points, exam findings, and any diagnostic results supporting the discharge/admit diagnosis, lab results, radiology results, the need for further work-up and treatment in the hospital. Response to treatment: the patient's symptoms have mildly improved after treatment. 01:27 ED course: after discussion with hospitalist, patient dx with severe sepsis. A) Kidney cp as source of infection. B) SIRS criteria: bHR > 90, WBC > 12. C) lactate 3.3. 11/03 23:36 Order name: CBC with Diff; Complete Time: 00:29 cp 11/04 00:30 Interpretation: Normal except: WBC 12.50; RBC 3.79; HGB 9.5; HCT 29.2; MCV 77.0; MCH cp 25.0; RDW 17.6; HOLLEY% 84.8; LYM% 8.0; NEUT A 10.6. 11/03 23:36 Order name: CMP; Complete Time: 00:30 cp 11/04 00:30 Interpretation: Normal except: NA 132; CL 96; GLUC 438; BUN 6; CRE 1.20; GFR 58; AST cp 13; ALT < 10; ALB 2.7; GLOB 5.4; A/G 0.5. 11/03 23:36 Order name: Lipase; Complete Time: 00:31 cp 11/04 00:31 Interpretation: Abnormal: LIP 733. cp 11/03 23:36 Order name: Urine Microscopic Only; Complete Time: 01:04 cp 11/04 01:04 Interpretation: Normal except: UWBC 10-20. cp 11/03 23:36 Order name: Lactate w/ 2H reflex if indic.; Complete Time: 00:29 cp 11/04 00:31 Interpretation: Abnormal: LAC 3.3. cp 11/04 00:01 Order name: Urine Dipstick-Ancillary; Complete Time: 00:02 EDMS 11/04 00:02 Interpretation: Normal except: UGLUC 2+; UBLD Trace-intact; UPH 8.5. cp 11/04 00:34 Order name: SARS RAPID; Complete Time: 01:28 cp 11/04 00:44 Order name: Urine Culture EDMS 11/04 01:01 Order name: Glucose, Ancillary Testing; Complete Time: 01:04 EDMS 11/04 01:04 Order name: Blood Culture Adult (2); Complete Time: 05:24 cp 11/04 01:41 Order name: Glucose, Ancillary Testing; Complete Time: 05:24 EDMS 11/04 04:19 Order name: CBC with Automated Diff; Complete Time: 05:24 EDMS 11/04 04:26 Order name: Basic Metabolic Panel; Complete Time: 05:24 EDMS 11/03 23:36 Order name: IV Saline Lock; Complete Time: 00:04 cp 11/03 23:36 Order name: Labs collected and sent; Complete Time: 00:04 cp 11/03 23:36 Order name: Urine Dipstick-Ancillary (obtain specimen); Complete Time: 00:04 cp 11/03 23:36 Order name: Urine Test (obtain specimen); Complete Time: 00:04 cp 11/03 23:36 Order name: US Abdomen Limited: gallbladder; Complete Time: 05:24 cp 11/04 00:02 Order name: CT Stone Protocol; Complete Time: 05:24 cp 11/04 00:34 Order name: XRAY Chest (1 view); Complete Time: 05:24 cp 11/04 04:27 Order name: Lactate Sepsis 2 HR Follow-up; Complete Time: 05:24 EDMS 11/04 07:54 Order name: Glucose, Ancillary Testing; Complete Time: 05:24 EDMS Administered Medications: 00:00 Drug: NS 0.9% 1000 ml Route: IV; Rate: 1 bolus; Site: right antecubital; pf1 01:44 Follow up: Response: No adverse reaction; IV Status: Completed infusion; IV Intake: aa9 1000ml 00:00 Drug: Pepcid (famotidine) 20 mg Route: IVP; Site: right antecubital; pf1 01:43 Follow up: Response: No adverse reaction aa9 00:00 Drug: Zofran (Ondansetron) 4 mg Route: IVP; Site: right antecubital; pf1 01:43 Follow up: Response: No adverse reaction aa9 00:00 Drug: morphine 4 mg Route: IVP; Infused Over: 4 mins; Site: right antecubital; pf1 01:43 Follow up: Response: No adverse reaction aa9 00:50 Drug: NS 0.9% 1000 ml Route: IV; Rate: 1 bolus; Site: right antecubital; aa9 03:59 Follow up: Response: No adverse reaction; IV Status: Completed infusion; IV Intake: aa9 1000ml 00:50 Drug: Insulin Regular Human 10 units {Co-Signature: as6 (Preston Romano RN).} Route: aa9 IVP; Site: right antecubital; 01:43 Follow up: Response: No adverse reaction; Blood pressure is lowered aa9 02:17 Drug: Meropenem 1 grams Route: IV; Rate: calculated rate; Site: right antecubital; aa9 03:59 Follow up: Response: No adverse reaction; IV Status: Completed infusion; IV Intake: aa9 100ml Disposition Summary: 11/04/22 01:26 Hospitalization Ordered Provider: Audelia Ríos cp Condition: Fair cp Problem: new cp Symptoms: have improved cp Bed/Room Type: Standard cp Hospitalization Status: Inpatient Admission(11/04/22 01:31) cp Location: Telemetry/MedSurg (Inpatient)(11/04/22 12:13) bd Room Assignment: 405(11/04/22 12:13) bd Diagnosis - Abdominal pain, unspecified cp - Diabetes mellitus due to underlying condition with hyperglycemia cp - Severe sepsis without septic shock cp - Pyelonephritis acute cp Discharge Instructions: - Discharge Summary Sheet bd Forms: - Family Work Release bd - Medication Reconciliation Form cp - SBAR form cp Addendum: 11/06/2022 11:54 Co-signature as Attending Physician, Titi Betancourt MD I reviewed the patient's care r t provided by the Advanced Practice Provider and agree with the diagnosis and treatment plan. Signatures: Dispatcher [employer] EDMS Argelia Feliciano Brenda, RN RN bb Altaf Valente, AQUATICS MANAGER-C AQUATICS MANAGER-Cla1 Hugo Monroy PA PA cp Abby Myrick, RN RN cg Herminia Ashton RN RN aa9 Titi Betancourt MD MD rt Goldie mojica RN RN pf1 Preston Romano RN as6 Corrections: (The following items were deleted from the chart) 11/04 01: 01:26 Observation cp cp : 01:26 Telemetry/MedSurg (observation) cp cg 01: cp cg : 01:42 [facility] ER HOLD cg bd : 01:42 ERHOLD- cg bd 11/05 05:27 05:19 ED course: after discussion with hospitalist, patient dx with severe sepsis. A) cp Kidney as source of infection. B) SIRS criteria: bHR > 90, WBC > 12. C) . cp
--- NOTE | 2022-11-04 01:44 | P.HP ---
Certification for Inpatient Patient admitted to: Inpatient With expected LOS: >2 Midnights Patient will require the following post-hospital care: None Practitioner: I am a practitioner with admitting privileges, knowledge of patient current condition, hospital course, and medical plan of care. Services: Services provided to patient in accordance with Admission requirements found in Title 42 Section 412.3 of the Code of Federal Regulations Patient History Date of Service: 11/04/22 Reason for admission: Severe sepsis, hyperglycemia History of Present Illness: 41-year-old female who is admitted at our facility on 10/18/2022 for DKA, pyelonephritis, bacteremia and subsequently discharged on 10/25/2022 after receiving a double-J left ureteral stent on antibioticsLevaquin presents the emergency department for left flank pain, low-grade fever, nausea. Patient was noted to be tachycardic with low-grade fever, she reports her pain worsened significantly tonight in the past few hours before arrival to the emergency department. Her labs were significant for leukocytosis with white blood cell count 12.5 glucose 438 lactic acid 3.3 lipase 733 creatinine 1.[address] abdomen pelvis without contrast was performed which revealed stable double-J left ureteral stent in good position. Again seen is diffused enlargement of the left kidney with mild perinephric stranding. Pyelonephritis is not excluded on this noncontrast study. No urinary calculus or hydronephrosis noted. Patient also had abdominal ultrasound performed which showed moderate biliary sludge. No cholelithiasis or evidence for cholecystitis. 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 She meets criteria for severe sepsis, she has been started on Merrem after blood cultures and urine cultures were obtained. It is also noted that patient has been without her insulin since discharge, she reports Lisa did not have insulin available. Will admit for further evaluation and management. Allergies No Known Allergies Allergy (Verified 09/11/20 23:23) Home Medications: Insulin NPH Human [Novolin N (Humulin N)*] 15 units SQ BIDWM #10 ml 10/26/20 Zinc Sulfate [Zinc Sulfate*] 220 mg PO DAILY #30 cap 10/26/20 Glucerna Shake [Glucerna*] 237 ml PO BID #60 can 10/24/22 Hydrocodone 10/APAP 325 [[place] 10/325] 1 tab PO Q6H PRN #30 tab 10/24/22 Insulin Glargine,Hum.rec.anlog [Semglee] 20 unit SQ 1700 #2 syr 10/24/22 Jamshid [Jamshid*] 1 pkt PO BID #60 packet 10/24/22 Tamsulosin [Flomax*] 0.4 mg PO BID #60 cap 10/24/22 levoFLOXacin [Levaquin] 750 mg PO DAILY #20 tab 10/25/22 predniSONE [Deltasone] 20 mg PO BID #11 tab 10/25/22 - Past Medical/Surgical History Diabetic: Yes -: Diabetes mellitus type 2 -: Hyperlipidemia -: HTN -: UTI/pyonephritis-ESBL -: Tubal ligation Psychosocial/ Personal History: 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 moist/pink, EOMI, Sclerae nonicteric Neck: Supple, 2+ carotid pulse no bruit, No LAD, Without JVD or thyroid abnormality Respiratory: Clear to auscultation bilaterally, Normal air movement Cardiovascular: No edema, Regular rate/rhythm, Normal S1 S2 Capillary refill: <2 Seconds Gastrointestinal: Normal bowel sounds, Tenderness (Left CVA tenderness) Musculoskeletal: No tenderness Integumentary: No rashes Neurological: Normal speech, Normal strength at 5/5 x4 extr, Normal tone, Normal affect - Studies Laboratory Data (last 24 hrs) 11/03/22 23:50: Sodium 132 L, Potassium 4.6, BUN 6 L, Creatinine 1.20 H, Glucose 438 H*, Total Bilirubin 0.3, AST 13 L, ALT < 10 L, Alkaline Phosphatase 109, Lipase 733 H 11/03/22 23:50: WBC 12.50 H, Hgb 9.5 L, Hct 29.2 L, Plt Count 400 Assessment and Plan - Plan Assessment: Severe sepsis secondary to suspected left pyelonephritis Diabetes mellitus type 2insulin-dependent with hyperglycemia Hypertension Hyperlipidemia Plan: Severe sepsis secondary to suspected left pyelonephritis: SIRS criteria met with tachycardia, leukocytosis and source of infection on CT suspected pyelonephritis. Severe sepsis criteria met with lactate greater than 2. Patient was recently on IV antibiotics during hospitalization as well as taking oral Levaquin at discharge. She does have a history of ESBL bacteremia. For this reason she is been placed on Merrem. Infectious disease consult in place. Patient also noted to have mildly elevated lipase level, no CT evidence of pancreatitis or epigastric tenderness noted. Will repeat lipase, advance diet slowly. Diabetes mellitus type 2insulin-dependent with hyperglycemia: Patient reports she has not been taking her insulin since she was discharged in the hospital as well nor did not have insulin available. Continue with sliding scale insulin, not actively in DKA. Hypertension: Hold oral antihypertensive in the setting of sepsis, restart when appropriate. Hyperlipidemia: Continue home medication. DVT PPX: Lovenox Code status: Full Discharge Plan: Home Plan to discharge in: 72 Hours - Advance Directives Does patient have a Living Will: No Does patient have a Durable POA for Healthcare: No - Code Status/Comfort Care Code Status Assessed: Yes (Full code) Critical Care: No Time Spent Managing Pts Care (In Minutes): 70
[2022-11-04] MEDS ORDERED: Meropenem 1000 MG/VIAL IV ONE ×2 (01:54→08:33)
[2022-11-04] MEDS ORDERED: NA CHLORIDE 0.9% 100 ML IV ONE ×2 (01:54→08:33)
[2022-11-04] MEDS: NA CHLORIDE 0.9% 1,000 ML IV SCH ×3 (02:55→20:53)
[2022-11-04] MEDS: MORPHINE 2 MG/ML SYR IV PRN ×4 (04:00→23:48)
[2022-11-04] MEDS ORDERED: MORPHINE 2 MG/ML SYR ONE ×2 (04:07→12:30)
[2022-11-04 04:16] LABS: Absolute Lymphocytes (CBC) 1.1 K/uL (0.7-4.9); Hematocrit 23.5 % (36.0-45.0); Lymphocytes % 11.1 % (15.3-44.8); MCV 77.7 fL (80-100); MPV 8.7 fL (7.6-11.3); RBC Red Blood Cell Count 3.02 M/uL (3.86-4.86)
[2022-11-04 04:24] LABS: Potassium 4.3 mmol/L (3.5-5.1)
[2022-11-04 04:26] VITALS: BMI 24.2
[2022-11-04] MEDS: INSULIN -REGULAR HUMAN 50 UNIT/0.5 ML ML SQ SCH ×4 (07:14→20:53)
[2022-11-04] MEDS ORDERED: INFLUENZA VACCINE (for 6+ mo) 0.5 ML DOSE IMVAC ONE (08:00)
[2022-11-04] MEDS ORDERED: ENOXAPARIN 40 MG/0.4 ML SQ ONE (08:33)
[2022-11-04] MEDS: Meropenem 1,000 MG in NA CHLORIDE 0.9% 100 ML IV SCH ×2 (08:35→17:45)
[2022-11-04] MEDS: ENOXAPARIN 40 MG/0.4 ML SQ SCH (08:35)
--- NOTE | 2022-11-04 09:59 | P.CNS ---
Chief Complaint: Severe sepsis, hyperglycemia History of Present Illness: 41-year-old female who is admitted at our facility on 10/18/2022 for DKA, pyelonephritis, bacteremia and subsequently discharged on 10/25/2022 after receiving a double-J left ureteral stent on antibioticsLorin presents the emergency department for left flank pain, low-grade fever, nausea. Patient was noted to be tachycardic with low-grade fever, she reports her pain worsened significantly tonight in the past few hours before arrival to the emergency department. Her labs were significant for leukocytosis with white blood cell count 12.5 glucose 438 lactic acid 3.3 lipase 733 creatinine 1.[address] abdomen pelvis without contrast was performed which revealed stable double-J left ureteral stent in good position. Again seen is diffused enlargement of the left kidney with mild perinephric stranding Pyelonephritis is not excluded on this noncontrast study. No urinary calculus or hydronephrosis noted. Patient also had abdominal ultrasound performed which showed moderate biliary sludge. No cholelithiasis or evidence for cholecystitis. 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 She meets criteria for severe sepsis, she has been started on Merrem after blood cultures and urine cultures were obtained. It is also noted that patient has been without her insulin since discharge, she reports Lisa did not have insulin available. Will admit for further evaluation and management. ID has been consulted for fever, leukocytosis, pyelonephriis, possible ESBC b acteremia Allergies No Known Allergies Allergy (Verified 09/11/20 23:23) Home Medications: Insulin NPH Human [Novolin N (Humulin N)*] 15 units SQ BIDWM #10 ml 10/26/20 Zinc Sulfate [Zinc Sulfate*] 220 mg PO DAILY #30 cap 10/26/20 Glucerna Shake [Glucerna*] 237 ml PO BID #60 can 10/24/22 Hydrocodone 10/APAP 325 [[place] 10/325] 1 tab PO Q6H PRN #30 tab 10/24/22 Insulin Glargine,Hum.rec.anlog [Semglee] 20 unit SQ 1700 #2 syr 10/24/22 Jamshid [Jamshid*] 1 pkt PO BID #60 packet 10/24/22 Tamsulosin [Flomax*] 0.4 mg PO BID #60 cap 10/24/22 levoFLOXacin [Levaquin] 750 mg PO DAILY #20 tab 10/25/22 predniSONE [Deltasone] 20 mg PO BID #11 tab 10/25/22 - Past Medical/Surgical History Diabetic: Yes -: Diabetes mellitus type 2 -: Hyperlipidemia -: HTN -: UTI/pyonephritis-ESBL -: Tubal ligation Psychosocial/ Personal History: 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 - Family History Mother Medical History: Hypertension Father Medical History: Hypertension, Diabetes Sister Medical History: Diabetes - Social History Alcohol use: Yes CD- Drugs: No Caffeine use: No Place of Residence: Home Review of Systems General: As per HPI Gastrointestinal: Nausea Genitourinary: As per HPI Physical Examination Temp Pulse Resp BP Pulse Ox 98.9 F 95 H 16 118/62 97 11/04/22 07:34 11/04/22 07:34 11/04/22 07:34 11/04/22 07:34 11/04/22 07:34 General: Alert, In no apparent distress, Oriented x3 Respiratory: Clear to auscultation bilaterally Cardiovascular: No edema, Normal S1 S2 Gastrointestinal: Normal bowel sounds Musculoskeletal: No clubbing, No swelling Integumentary: No rashes, No breakdown Neurological: Normal speech, Normal tone, Normal affect Urinary: Other (left flank pain) Laboratory Data (last 24 hrs) 11/03/22 23:50: Sodium 132 L, Potassium 4.6, BUN 6 L, Creatinine 1.20 H, Glucose 438 H*, Total Bilirubin 0.3, AST 13 L, ALT < 10 L, Alkaline Phosphatase 109, Lipase 733 H 11/03/22 23:50: WBC 12.50 H, Hgb 9.5 L, Hct 29.2 L, Plt Count 40 Imagings Data: 11/03 US ABD: IMPRESSION: 1. Moderate biliary sludge. No cholelithiasis or evidence for cholecystitis 11/04 Chest xray: MPRESSION: No acute cardiopulmonary findings 11/04 CT ABD: FINDINGS: Stable left double-J ureteral stent in good position. No renal, ureteral, or bladder calculi on either side. No hydronephrosis. Again seen is diffuse enlargement of the left kidney with mild perinephric stranding. Shotty, reactive regional lymph nodes. Pyelonephritis was present on the prior examination cannot be excluded on this noncontrast study. The right kidney appears normal. Minimal bibasilar atelectasis. Steatosis of the liver without focal lesion. The biliary tree, gallbladder, pancreas, spleen, adrenal glands, uterus, and adnexa are normal. There is no bowel inflammation, obstruction, free intraperitoneal air, or ascites. The appendix is normal. There are no aggressive osseous lesions. IMPRESSION: Stable double-J left ureteral stent in good position. Again seen is diffuse enlargement of the left kidney with mild perinephric stranding. Pyelonephritis is not excluded on this noncontrast study. No urinary calculus or hydronephrosis. No other acute abdominal or pelvic findings - Problems (1) Acute pyelonephritis Current Visit: No Status: Acute Plan: Cultures: - 11/04 BC: Pending - 11/04 UC: Pending Antibiotics: IV Meropenem from 11/04 to Recommendations: Continue IV antibiotic ID will recommend drug of choice when cultures are available Conclusions/Impression: - Severe sepsis secondary to suspected left pyelonephritis - Diabetes mellitus type 2insulin-dependent with hyperglycemia - Hypertension - Hyperlipidemia - HTN - UTI/pyonephritis-ESBL - Tubal ligation ID will monitor the patient closely for signs of infection with fever and WBC trends Case has been discussed with Dr. Almanzar N Thank you Dr. Ríos for consult
[2022-11-04] MEDS: ONDANSETRON 4 MG/2 ML VIAL IV PRN ×3 (12:25→23:49)
[2022-11-04] MEDS ORDERED: ONDANSETRON 4 MG/2 ML VIAL ONE ×2 (12:30)
--- NOTE | 2022-11-04 18:58 | RAD REPORT ---
EXAM DESCRIPTION: Abdomen Exam Limited CLINICAL HISTORY: 41 years Female, ABD PAIN TECHNIQUE: Real-time transabdominal imaging of the right upper quadrant was performed. COMPARISON: None. FINDINGS: GALLBLADDER: Moderate biliary sludge. No shadowing gallstones. No abnormal wall thickenin g or pericholecystic fluid. Sonographic [place] sign: Negative. CBD/BILE DUCT: The common bile duct is not dilated, measuring 3 mm. No intra- or extrahepatic duct al dilatation. OTHER: Noncontributory. IMPRESSION: 1. Moderate biliary sludge. No cholelithiasis or evidence for cholecystitis. Electronically signed by: Nicolas Alvarado MD 11/04/2022 12:17 AM VIDEO TECHNICIAN Due to temporary technical issues with the PACS/Fluency reporting system, reports are being signed by the in house radiologists without review as a courtesy to insure prompt reporting. The interpreting radiologist is fully responsible for the content of the report
--- NOTE | 2022-11-04 19:05 | RAD REPORT ---
EXAM DESCRIPTION: Chest Single View CLINICAL HISTORY: 41 years Female upper abdomen pain COMPARISON: Chest x-ray 10/21/2020. FINDINGS: Lung volumes adequate. Cardiac silhouette is normal. No pneumothorax. No large pleural effusion. No focal consolidation. No acute bony finding. IMPRESSION: No acute cardiopulmonary findings. Electronically signed by: America King MD 11/04/2022 1:03 AM FLUE CLEANER Due to temporary technical issues with the PACS/Fluency reporting system, reports are being signed by the in house radiologists without review as a courtesy to insure prompt reporting. The interpreting radiologist is fully responsible for the content of the report
--- NOTE | 2022-11-04 19:07 | RAD REPORT ---
EXAM DESCRIPTION: [place] Protocol CLINICAL HISTORY: 41 years Female left flank pain TECHNIQUE: Contiguous axial images obtained through the abdomen and pelvis without IV contrast. Russel nal and sagittal reformatted images provided. This CT exam was performed according to our departmental dose-optimization program, which includes on e or more of the following dose reduction techniques: automated exposure control, adjustment of the m A and/or kV according to patient size, and/or use of iterative reconstruction technique. COMPARISON: 10/28/2022 FINDINGS: Stable left double-J ureteral stent in good position. No renal, ureteral, or bladder calcu li on either side. No hydronephrosis. Again seen is diffuse enlargement of the left kidney with mild perinephric stranding. Shotty, reactiv e regional lymph nodes. Pyelonephritis was present on the prior examination cannot be excluded on thi s noncontrast study. The right kidney appears normal. Minimal bibasilar atelectasis. Steatosis of the liver without focal lesion. The biliary tree, gallbladder, pancreas, spleen, adrenal glands, uterus, and adnexa are normal. There is no bowel inflammation, obstruction, free intraperitoneal air, or ascites. The appendix is no rmal. There are no aggressive osseous lesions. IMPRESSION: Stable double-J left ureteral stent in good position. Again seen is diffuse enlargement of the left kidney with mild perinephric stranding. Pyelonephritis is not excluded on this noncontras t study. No urinary calculus or hydronephrosis. No other acute abdominal or pelvic findings. Electronically signed by: Elisabeth Taveras MD 11/04/2022 12:56 AM CITY CONSTABLE Due to temporary technical issues with the PACS/Fluency reporting system, reports are being signed by the in house radiologists without review as a courtesy to insure prompt reporting. The interpreting radiologist is fully responsible for the content of the report
[2022-11-04] MEDS: HYDROCODONE/APAP 5/325 MG TAB PO PRN (21:44)
[2022-11-04] MEDS: MELATONIN 5 MG TABLET PO PRN (21:45)
[2022-11-05] MEDS: NA CHLORIDE 0.9% 1,000 ML IV SCH ×4 (04:23→21:38)
[2022-11-05] MEDS: MORPHINE 2 MG/ML SYR IV PRN ×2 (06:06→18:19)
[2022-11-05] MEDS: ONDANSETRON 4 MG/2 ML VIAL IV PRN ×2 (06:07→21:43)
[2022-11-05] MEDS: INSULIN -REGULAR HUMAN 50 UNIT/0.5 ML ML SQ SCH ×4 (08:15→21:35)
[2022-11-05] MEDS: ENOXAPARIN 40 MG/0.4 ML SQ SCH (08:15)
[2022-11-05] MEDS: ACETAMINOPHEN 500 MG TAB PO PRN (08:16)
[2022-11-05 08:52] LABS: Absolute Lymphocytes (CBC) 0.9 K/uL (0.7-4.9); Hematocrit 26.9 % (36.0-45.0); Lymphocytes % 7.2 % (15.3-44.8); MCV 77.3 fL (80-100); MPV 8.4 fL (7.6-11.3); RBC Red Blood Cell Count 3.48 M/uL (3.86-4.86)
--- NOTE | 2022-11-05 10:44 | P.PN ---
Subjective Date of Service: 11/05/22 Chief Complaint: Severe sepsis, hyperglycemia Patient sitting in bed having lunch reports having very mild left flank pain and feels better after taking pain medication. No major event upon examination Physical Examination - Vital Signs Temperature: 101.1 F Blood Pressure: 139/74 Pulse: 95 Respirations: 16 Pulse Ox (%): 97 - Physical Exam General: Alert, In no apparent distress, Oriented x3 Respiratory: Clear to auscultation bilaterally Cardiovascular: No edema, Normal S1 S2 Gastrointestinal: Normal bowel sounds Musculoskeletal: No swelling, No erythema, No tenderness Integumentary: No rashes, No breakdown Neurological: Normal speech, Normal tone, Normal affect Urinary: Other (left mild CVA tenderness) - Studies Acetaminophen (Acetaminophen 500 Mg Tab) 500 mg PO Q4HP PRN PRN Reason: Pain scale 2-4 (Mild) Last Admin: 11/05/22 08:16 Dose: 500 mg Hydrocodone Bitart/Acetaminophen (Hydrocodone/Apap 5/325 Mg Tab) 1 tab PO Q6H PRN PRN Reason: Pain scale 5-7 (Moderate) Last Admin: 11/04/22 21:44 Dose: 1 tab Enoxaparin Sodium (Enoxaparin 40 Mg/0.4 Ml) 40 mg SQ DAILY [facility] Last Admin: 11/05/22 08:15 Dose: 40 mg Sodium Chloride (Ns 1000 Ml Ivbag) 1,000 mls @ 125 mls/hr IV .Q8H [facility] Last Admin: 11/05/22 04:23 Dose: 1,000 mls Insulin Human Regular (Insulin -Regular Human 50 Unit/0.5 Ml Ml) 0 unit SQ [facility]; Protocol Last Admin: 11/05/22 08:15 Dose: 5 unit Melatonin (Melatonin 5 Mg Tablet) 5 mg PO BEDTIME PRN PRN Reason: INSOMNIA Last Admin: 11/04/22 21:45 Dose: 5 mg Morphine Sulfate (Morphine 2 Mg/Ml Syr) 2 mg IV Q6H PRN PRN Reason: Pain scale 5-7 (Moderate) Last Admin: 11/05/22 06:06 Dose: 2 mg Ondansetron HCl (Ondansetron 4 Mg/2 Ml Vial) 4 mg IV Q6HP PRN PRN Reason: NAUSEA / VOMITING Last Admin: 11/05/22 06:07 Dose: 4 mg Sodium Chloride (Flush Normal Saline 10 Ml) 10 ml IV BID ADENIKE Last Admin: 11/05/22 07:51 Dose: Not Given Microbiology Data (last 24 hrs): Microbiology 11/03/22 23:50 Clean Catch Urine [place] Count - Final No growth. 11/03/22 23:50 Clean Catch Urine - Final No growth. 11/04/22 00:00 Blood - Blood Aerobic Blood Culture - Preliminary No growth in 24 hours. 11/04/22 00:00 Blood - Blood Anaerobic Blood Culture - Preliminary No growth in 24 hours. 11/04/22 01:27 Blood - Blood Aerobic Blood Culture - Preliminary No growth in 24 hours. 11/04/22 01:27 Blood - Blood Anaerobic Blood Culture - Preliminary No growth in 24 hours. Assessment And Plan - Current Problems (Diagnosis) (1) Acute pyelonephritis Current Visit: No Status: Acute Plan: Cultures: - 11/04 BC: Negative - 11/04 UC: Negative Antibiotics: Had IV Meropenem on 11/04 and d/c - Plan - Severe sepsis secondary to suspected left pyelonephritis - Leukocytosis: 11.9 with fever today. ID will keep monitoring the trends - Diabetes mellitus type 2insulin-dependent with hyperglycemia - Hypertension - Hyperlipidemia - HTN - UTI/pyonephritis-ESBL - Tubal ligation ID will monitor the patient closely for signs of infection with fever and WBC trends Case has been discussed with Dr. Almanzar N
[2022-11-05] MEDS: HYDROCODONE/APAP 5/325 MG TAB PO PRN ×2 (16:47→22:24)
[2022-11-05] MEDS: MELATONIN 5 MG TABLET PO PRN (21:34)
[2022-11-06] MEDS: MORPHINE 2 MG/ML SYR IV PRN ×3 (02:36→21:18)
[2022-11-06] MEDS: ONDANSETRON 4 MG/2 ML VIAL IV PRN ×2 (02:44→11:19)
[2022-11-06 04:16] LABS: Absolute Lymphocytes (CBC) 0.8 K/uL (0.7-4.9); Hematocrit 25.2 % (36.0-45.0); Lymphocytes % 9.8 % (15.3-44.8); MCV 76.9 fL (80-100); MPV 8.9 fL (7.6-11.3); RBC Red Blood Cell Count 3.27 M/uL (3.86-4.86)
[2022-11-06 04:34] LABS: Potassium 4.2 mmol/L (3.5-5.1)
[2022-11-06] MEDS: NA CHLORIDE 0.9% 1,000 ML IV SCH ×4 (04:45→21:16)
[2022-11-06] MEDS: ACETAMINOPHEN 500 MG TAB PO PRN ×2 (04:49→16:21)
[2022-11-06] MEDS: HYDROCODONE/APAP 5/325 MG TAB PO PRN (06:00)
--- NOTE | 2022-11-06 06:31 | P.PN ---
Subjective Date of Service: 11/05/22 Subjective: No new changes, No C/O voiced, Improving Review of Systems 10-point ROS is otherwise unremarkable Physical Examination - Vital Signs Temperature: 100.3 F Blood Pressure: 106/60 Pulse: 88 Respirations: 16 Pulse Ox (%): 95 - Physical Exam General: Alert, In no apparent distress, Oriented x3 Respiratory: Clear to auscultation bilaterally, Normal air movement Cardiovascular: Regular rate/rhythm, Normal S1 S2, No murmurs Gastrointestinal: Normal bowel sounds, Soft and benign, Non-distended, No tenderness Musculoskeletal: No clubbing, No swelling, No tenderness Neurological: Sensation intact, Cranial nerves 3-12 intact - Studies Microbiology Data (last 24 hrs): 11/03/22 23:50 Clean Catch Urine [place] Count - Final No growth. 11/03/22 23:50 Clean Catch Urine - Final No growth. Medications List Reviewed: Yes Assessment & Plan - Problems (Diagnosis) (1) Acute pyelonephritis Current Visit: No Status: Acute (2) DM type 2 (diabetes mellitus, type 2) Current Visit: No Status: Acute Qualifiers: Diabetes mellitus group home insulin use: with supervisor intermediates use Diabetes mellitus complication status: without complication Qualified Code(s): E11.9 - Type 2 diabetes mellitus without complications; Z79.4 - terminal computer operator (current) use of insulin (3) Microcytic anemia Current Visit: Yes Status: Acute - Plan -aggressive IV hydration -DC IV antibiotics -pain controlled -monitor for possible perforation -Awaiting culture -CT abdomen pelvis Discharge Plan: Home Plan to discharge in: Greater than 2 days - Advance Directives Does patient have a Living Will: No Does patient have a Durable POA for Healthcare: No - Code Status/Comfort Care Code Status Assessed: Yes Code Status: Full Code Critical Care: No Time Spent Managing PTS Care (In Minutes): 30
--- NOTE | 2022-11-06 06:40 | P.PN ---
Date of Service: 11/06/22 Subjective Patient with low-grade fever. Unknown source. Continue with gentle hydration. CT scan with no evidence of perinephric abscess. Ureteral stent is in place. Lipase was elevated on arrival. This is normal. UA was negative no bacteria noted. Cultures are negative. Patient still having some flank tenderness. will reimage 1 last time. Anticipate discharge over the next 24-48 hours. Physical Examination - Vital Signs reviewed - Physical Exam General: Alert, In no apparent distress, Oriented x3 Respiratory: Clear to auscultation bilaterally, Normal air movement Cardiovascular: Regular rate/rhythm, Normal S1 S2, No murmurs Gastrointestinal: Normal bowel sounds, Soft and benign, Non-distended, No tende rness Musculoskeletal: No clubbing, No swelling, No tenderness Neurological: Sensation intact, Cranial nerves 3-12 intact Assessment & Plan - Problems (Diagnosis) (1) Acute pancreatitis Current Visit: No Status: Acute (2) DM type 2 (diabetes mellitus, type 2) Current Visit: No Status: Acute Qualifiers: Diabetes mellitus superintendent terminal insulin use: with superintendent terminal use Diabetes mellitus complication status: without complication Qualified Code(s): E11.9 - Type 2 diabetes mellitus without complications; Z79.4 - watermelon inspector (current) use of insulin (3) Microcytic anemia Current Visit: Yes Status: Acute - Plan Continue with POC as mentioned below -aggressive IV hydration -DC IV antibiotics -pain controlled -monitor lipase -Awaiting cultures -CT abdomen/pelvis pending
[2022-11-06] MEDS: INSULIN -REGULAR HUMAN 50 UNIT/0.5 ML ML SQ SCH ×4 (07:30→21:00)
[2022-11-06] MEDS: ENOXAPARIN 40 MG/0.4 ML SQ SCH (08:42)
--- NOTE | 2022-11-06 08:50 | P.PN ---
Subjective Date of Service: 11/06/22 Chief Complaint: Severe sepsis, hyperglycemia Patient lying reports having very mild left flank pain and feels better after taking pain medication. No major event upon examination Physical Examination - Vital Signs Temperature: 100.3 F Blood Pressure: 106/60 Pulse: 88 Respirations: 16 Pulse Ox (%): 96 - Physical Exam General: Alert, In no apparent distress, Oriented x3 Respiratory: Clear to auscultation bilaterally Cardiovascular: No edema, Normal S1 S2 Gastrointestinal: Normal bowel sounds Musculoskeletal: No swelling, No tenderness Integumentary: No rashes, No breakdown Neurological: Normal speech, Normal tone, Normal affect - Studies Acetaminophen (Acetaminophen 500 Mg Tab) 500 mg PO Q4HP PRN PRN Reason: Pain scale 2-4 (Mild) Last Admin: 11/06/22 04:49 Dose: 500 mg Hydrocodone Bitart/Acetaminophen (Hydrocodone/Apap 5/325 Mg Tab) 1 tab PO Q6H PRN PRN Reason: Pain scale 5-7 (Moderate) Last Admin: 11/06/22 06:00 Dose: 1 tab Enoxaparin Sodium (Enoxaparin 40 Mg/0.4 Ml) 40 mg SQ DAILY [facility] Last Admin: 11/06/22 08:42 Dose: 40 mg Sodium Chloride (Ns 1000 Ml Ivbag) 1,000 mls @ 125 mls/hr IV .Q8H [facility] Last Admin: 11/06/22 04:45 Dose: 1,000 mls Insulin Human Regular (Insulin -Regular Human 50 Unit/0.5 Ml Ml) 0 unit SQ ACHS [facility]; Protocol Last Admin: 11/06/22 07:30 Dose: Not Given Melatonin (Melatonin 5 Mg Tablet) 5 mg PO BEDTIME PRN PRN Reason: INSOMNIA Last Admin: 11/05/22 21:34 Dose: 5 mg Morphine Sulfate (Morphine 2 Mg/Ml Syr) 2 mg IV Q6H PRN PRN Reason: Pain scale 5-7 (Moderate) Last Admin: 11/06/22 02:36 Dose: 2 mg Ondansetron HCl (Ondansetron 4 Mg/2 Ml Vial) 4 mg IV Q6HP PRN PRN Reason: NAUSEA / VOMITING Last Admin: 11/06/22 02:44 Dose: 4 mg Sodium Chloride (Flush Normal Saline 10 Ml) 10 ml IV BID [facility] Last Admin: 11/06/22 08:43 Dose: Not Given Microbiology Data (last 24 hrs): 11/03/22 23:50 Clean Catch Urine [place] Count - Final No growth. 11/03/22 23:50 Clean Catch Urine - Final No growth. Medications List Reviewed: Yes Assessment And Plan - Current Problems (Diagnosis) (1) Acute pyelonephritis Current Visit: No Status: Acute Plan: Cultures: - 11/04 BC: Negative - 11/04 UC: Negative Antibiotics: Had IV Meropenem on 11/04 and d/c - Plan - Severe sepsis secondary to suspected left pyelonephritis - Leukocytosis: 8.3 normal today. ID will keep monitoring the trends - Diabetes mellitus type 2insulin-dependent with hyperglycemia - Hypertension - Hyperlipidemia - HTN - UTI/pyonephritis-ESBL - Tubal ligation ID will monitor the patient closely for signs of infection with fever and WBC trends Case has been discussed with Dr. Almanzar N
[2022-11-06] MEDS: PROMETHAZINE 25 MG TABLET PO PRN ×2 (15:08→21:19)
[2022-11-07] MEDS ORDERED: Levofloxacin500mg IV 500 MG/100 ML BAG IV SCH (01:00)
[2022-11-07] MEDS: MORPHINE 2 MG/ML SYR IV PRN ×2 (03:25→15:34)
[2022-11-07] MEDS: ACETAMINOPHEN 500 MG TAB PO PRN (03:42)
[2022-11-07 05:56] LABS: Hematocrit 25.3 % (36.0-45.0); Lymphocytes % 9.9 % (15.3-44.8); MCV 77.1 fL (80-100); MPV 9.1 fL (7.6-11.3); RBC Red Blood Cell Count 3.28 M/uL (3.86-4.86)
[2022-11-07 06:16] LABS: AST/SGOT 6 U/L (15-37); Albumin 2.2 g/dL (3.4-5.0); Alkaline Phosphatase 97 U/L (45-117); BUN Blood Urea Nitrogen 3 mg/dL (7-18); Bicarbonate 25 mmol/L (21-32); Bilirubin Total 0.2 mg/dL (0.2-1.0); Glomerular Filtration Rate 92 ml/min (=/>90); Glucose Level 238 mg/dL (74-106); Magnesium 1.9 mg/dL (1.6-2.4); Potassium 4.6 mmol/L (3.5-5.1); Protein, Total 7.3 g/dL (6.4-8.2); Sodium Level 133 mmol/L (136-145)
[2022-11-07 06:17] LABS: ALT/SGPT < 10 U/L (13-56)
--- NOTE | 2022-11-07 08:25 | P.PN ---
Subjective Date of Service: 11/07/22 Chief Complaint: Severe sepsis, hyperglycemia Patient lying in bed with no major event upon examination Physical Examination - Vital Signs Temperature: 98.8 F Blood Pressure: 151/74 Pulse: 94 Respirations: 20 Pulse Ox (%): 98 - Physical Exam General: Alert, In no apparent distress, Oriented x3 Respiratory: Clear to auscultation bilaterally Cardiovascular: No edema, Normal S1 S2 Gastrointestinal: Normal bowel sounds Musculoskeletal: No swelling, No erythema, No tenderness Integumentary: No rashes, No breakdown Neurological: Normal speech, Normal tone, Normal affect - Studies Acetaminophen (Acetaminophen 500 Mg Tab) 500 mg PO Q4HP PRN PRN Reason: Pain scale 2-4 (Mild) Last Admin: 11/07/22 03:42 Dose: 500 mg Hydrocodone Bitart/Acetaminophen (Hydrocodone/Apap 5/325 Mg Tab) 1 tab PO Q6H PRN PRN Reason: Pain scale 5-7 (Moderate) Last Admin: 11/06/22 06:00 Dose: 1 tab Enoxaparin Sodium (Enoxaparin 40 Mg/0.4 Ml) 40 mg SQ DAILY [facility] Last Admin: 11/06/22 08:42 Dose: 40 mg Levofloxacin/Dextrose (Levaquin 500 Mg/100 Ml Ivpb) 500 mg in 100 mls @ 100 mls/hr IV Q24H [facility]; Protocol Last Admin: 11/07/22 01:54 Dose: 100 mls Insulin Human Regular (Insulin -Regular Human 50 Unit/0.5 Ml Ml) 0 unit SQ ACHS [facility]; Protocol Last Admin: 11/06/22 21:00 Dose: Not Given Melatonin (Melatonin 5 Mg Tablet) 5 mg PO BEDTIME PRN PRN Reason: INSOMNIA Last Admin: 11/05/22 21:34 Dose: 5 mg Morphine Sulfate (Morphine 2 Mg/Ml Syr) 2 mg IV Q6H PRN PRN Reason: Pain scale 5-7 (Moderate) Last Admin: 11/07/22 03:25 Dose: 2 mg Promethazine HCl (Promethazine 25 Mg Tablet) 25 mg PO Q6H PRN PRN Reason: NAUSEA / VOMITING Last Admin: 11/06/22 21:19 Dose: 25 mg Sodium Chloride (Flush Normal Saline 10 Ml) 10 ml IV BID [facility] Last Admin: 11/06/22 21:19 Dose: 10 ml Microbiology Data (last 24 hrs): Microbiology 11/03/22 23:50 Clean Catch Urine [place] Count - Final No growth. 11/03/22 23:50 Clean Catch Urine - Final No growth. 11/04/22 00:00 Blood - Blood Aerobic Blood Culture - Preliminary No growth in 24 hours. 11/04/22 00:00 Blood - Blood Anaerobic Blood Culture - Preliminary No growth in 24 hours. 11/04/22 01:27 Blood - Blood Aerobic Blood Culture - Preliminary No growth in 24 hours. 11/04/22 01:27 Blood - Blood Anaerobic Blood Culture - Preliminary No growth in 24 hours. Medications List Reviewed: Yes Assessment And Plan - Current Problems (Diagnosis) (1) Acute pyelonephritis Current Visit: No Status: Acute Plan: Cultures: - 11/04 BC: Negative - 11/04 UC: Negative Antibiotics: Had IV Meropenem on 11/04 and d/c Primary team ordered Levofloxacin 11/07 Primary team plans to remove the stent if not contraindicated - Plan - Acute pancreatitis: Lipase level was 733 on admission, 11/03, and back to normal on 11/05 - Severe sepsis secondary to suspected left pyelonephritis - Leukocytosis: 8.3 normal today. ID will keep monitoring the trends - Diabetes mellitus type 2insulin-dependent with hyperglycemia - Hypertension - Hyperlipidemia - HTN - UTI/pyonephritis-ESBL - Tubal ligation ID will monitor the patient closely for signs of infection with fever and WBC trends Case has been discussed with Dr. Almanzar, N
[2022-11-07] MEDS ORDERED: HYDROCORTISONE SUC 100 MG INJ IV ONE (08:50)
--- NOTE | 2022-11-07 08:54 | RAD REPORT ---
EXAM DESCRIPTION: CTAbdomen Pelvis W Contrast - 11/07/2022 7:18 am CLINICAL HISTORY: Abdominal pain. flank tenderness; h/o of ureteral stent COMPARISON: Abdomen Pelvis W Contrast dated 10/28/2022; Abdomen Pelvis W Contrast dated 10/24/2022 ; Abdomen Pelvis W Contrast dated 10/20/2022; Abdomen Pelvis W Contrast dated 10/21/2020 TECHNIQUE: Biphasic CT imaging of the abdomen and pelvis was performed with 100 ml non-ionic IV cont rast. All CT scans are performed using dose optimization technique as appropriate and may include automated exposure control or mA/KV adjustment according to patient size. FINDINGS: Mild atelectasis is present in both lung bases. The liver, spleen, pancreas, adrenal glands and right kidney are within normal limits. Left double-J stent is in place spanning the left renal pelvis and urinary bladder. Heterogenous enhancement patter n affecting the left kidney which appears enlarged is again seen. The appearance of left kidney is es sentially stable since 10/28/2022 study. Several mildly prominent presumed reactive lymph nodes are s een near the left renal hilum. No bowel obstruction, free air, free fluid or abscess. The appendix is normal. No evidence of signi ficant lymphadenopathy. No suspicious bony findings. IMPRESSION: Left double-J stent is in place in expected positioning alignment. Heterogenous enhancem ent and large size of the left kidney persists, appearing essentially stable since prior study. No hy dronephrosis.
[2022-11-07] MEDS: ENOXAPARIN 40 MG/0.4 ML SQ SCH (09:22)
[2022-11-07] MEDS: INSULIN -REGULAR HUMAN 50 UNIT/0.5 ML ML SQ SCH ×4 (09:23→20:50)
[2022-11-07 14:19] VITALS: O2SAT 98
[2022-11-07] MEDS: PROMETHAZINE 25 MG TABLET PO PRN (15:34)
[2022-11-07] MEDS ORDERED: Levofloxacin 750mg IV 750 MG/150 ML BAG IV SCH (17:00)
[2022-11-07] MEDS: HYDROCORTISONE SUC 100 MG INJ IV SCH (20:51)
--- NOTE | 2022-11-07 23:11 | P.CNS ---
Date of Consult: 11/07/22 Reason for Consult: Recurrent SIRS/sepsis Chief Complaint: Severe sepsis, hyperglycemia History of Present Illness: 41-year-old woman with poorly controlled DM2, and history of recurrent UTIs, who was admitted with pyelonephritic sepsis secondary to an E. coli UTI with associated left hydroureteronephrosis and underwent cystoscopy with left ureteral stent placement 10/20/2022 along with Stark catheter placement to assist in decompression with findings of pyonephrosis. No evidence of abscess was ever obtained despite serial repeat imaging as an inpatient, and patient did begin to clinically improve. She was then discharged on 10/25/2021 with the stent in place but the urethral Stark catheter removed with a prescription for Levaquin. I recommended that the antimicrobial be continued for an extended period, likely 21 to 28 days, to allow complete resolution of the renal parenchymal destruction observed on imaging. I also recommended serial repeat imaging to confirm she did not degenerate to formation of a renal abscess. She was then apparently r eadmitted 11/04/2022 via the emergency department because of left flank pain, low-grade fever and nausea. Apparently she was tachycardic, and her labs were significant for slight leukocytosis with a WBC count 12.5, glucose of 438, lactic acid of 3.3, lipase of 733, and creatinine of 1.2. Of note, the urinalysis was negative. CT abdomen and pelvis without contrast was performed revealing the left ureteral stent was in good position though diffuse enlargement of the left kidney was noted with mild perinephric stranding. Because she met criteria for severe sepsis, she was started on meropenem after blood and urine cultures were obtained. She also apparently noted that she had been without her insulin since discharge suggesting Lisa did not have the insulin available. I question whether the patient also picked up and was regularly taking her Levaquin as prescribed on discharge, and received an answer that she was indeed taking it. Despite taking the Levaquin, she is readmitted. 11/07/2022 CT abdomen and pelvis with IV contrast performed impression: Heterogeneous enhancement and large size of the left kidney persists, appearing essentially stable since prior study. No hydronephrosis. 11/03/2022 WBC 12.5, urine culture negative 11/04/2022 blood cultures no growth to date, COVID-negative 11/07/2022 WBC improved to 9.8, creatinine 0.81 -I reviewed the images of the non-IV contrast followed by the IV contrast CT scans in detail, and appreciated the continued heterogeneous enhancement of the left kidney with diffuse mild to moderate enlargement without distinct abscess formation noted. Assessment and recommendation: 41-year-old woman with poorly controlled DM2, and history of recurrent UTIs, with pyelonephritic sepsis secondary to an E. coli UTI with associated left hydr oureteronephrosis s/p cystoscopy with left ureteral stent placement 10/20/2022 along with Stark catheter to decompress intraoperative findings of pyonephrosis, clinically improved and discharged 10/25/2022 on Levaquin, now readmitted with poor glycemic control, SIRS/suspected sepsis, and persistence of abnormally enlarged and heterogeneously enhancing left renal unit despite absence of hydroureteronephrosis. -If this is indeed recurrence of severe infection despite active use of Levaquin antimicrobial therapy (I have my doubts because the patient previously expressed lack of ability to afford medical care and was uninsured; so it is reasonable to surmise that she may not have been taking the Levaquin daily as prescribed if she was taking it at all), I recommend the followin. Request IR for percutaneous left renal biopsy -we need to rule out lymphoma but also pathologically characterize the renal parenchyma persistently abnormal appearing despite adequate antimicrobial therapy to treat suspected pyelonephritis. One of the interventional radiologist here at [facility] may be able to accommodate this request. 2. If failure to completely resolve either the SIRS or the signs of chronic destructive pyelonephritis, she will require left nephrectomy. -Regardless, she will require clinical stabilization with resolution of her SIRS, including optimization of her glucose control, before surgical therapy could reasonably proceed, unless there is acute decompensation unresponsive to medical therapy, for which only nephrectomy would be effective. 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
[2022-11-08] MEDS: MORPHINE 2 MG/ML SYR IV PRN (00:30)
[2022-11-08 03:42] LABS: Absolute Lymphocytes (CBC) 0.9 K/uL (0.7-4.9); Hematocrit 25.7 % (36.0-45.0); Lymphocytes % 14.7 % (15.3-44.8); MCV 77.7 fL (80-100); RBC Red Blood Cell Count 3.31 M/uL (3.86-4.86)
[2022-11-08 03:50] LABS: Potassium 4.3 mmol/L (3.5-5.1)
[2022-11-08] MEDS: INSULIN -REGULAR HUMAN 50 UNIT/0.5 ML ML SQ SCH (08:11)
[2022-11-08] MEDS: HYDROCORTISONE SUC 100 MG INJ IV SCH (08:11)
[2022-11-08] MEDS: ENOXAPARIN 40 MG/0.4 ML SQ SCH (08:11)
--- NOTE | 2022-11-08 08:53 | P.PN ---
Date of Service: 11/07/22 Subjective afebrile today; continue monitoring. anticipate DC in AM Physical Examination - Vital Signs reviewed - Physical Exam General: Alert, In no apparent distress, Oriented x3 Respiratory: Clear to auscultation bilaterally, Normal air movement Cardiovascular: Regular rate/rhythm, Normal S1 S2, No murmurs Gastrointestinal: Normal bowel sounds, Soft and benign, Non-distended, No tenderness Musculoskeletal: No clubbing, No swelling, No tenderness Neurological: Sensation intact, Cranial nerves 3-12 intact Assessment & Plan - Problems (Diagnosis) (1) Acute pancreatitis Current Visit: No Status: Acute (2) DM type 2 (diabetes mellitus, type 2) Current Visit: No Status: Acute Qualifiers: Diabetes mellitus home stager insulin use: with home stager use Diabetes mellitus complication status: without complication Qualified Code(s): E11.9 - Type 2 diabetes mellitus without complications; Z79.4 - residential (current) use of insulin (3) Microcytic anemia Current Visit: Yes Status: Acute - Plan Continue with POC as mentioned below -IV hydration -DC IV antibiotics -pain controlled -monitor lipase -Cultures NEGATIVE -CT abdomen/pelvis reviewed
[2022-11-08 09:29] VITALS: BP 144/75; TEMP 97.1
== END 2022-11-08 11:10 | disposition home or self-care (01) | DRG 871 ==
LOC: ER 23:19 → ERHOLD 11-04 01:30 → 4TH 11-04 12:42
PROVIDERS: ADMIT Hospitalist; ATTEND Hospitalist
DX: A41.51 Sepsis due to Escherichia coli [E. coli] (principal); K85.90 Acute pancreatitis without necrosis or infection, unspecified; N17.9 Acute kidney failure, unspecified; N10 Acute pyelonephritis; Z16.12 Extended spectrum beta lactamase (ESBL) resistance; R65.20 Severe sepsis without septic shock; E11.65 Type 2 diabetes mellitus with hyperglycemia; I10 Essential (primary) hypertension; D50.9 Iron deficiency anemia, unspecified; E78.5 Hyperlipidemia, unspecified; T38.3X6A Underdosing of insulin and oral hypoglycemic [antidiabetic] drugs, initial encounter; Z79.84 Long term (current) use of oral hypoglycemic drugs; Z91.14 Patient's other noncompliance with medication regimen; Z98.51 Tubal ligation status; Z79.52 Long term (current) use of systemic steroids; Z79.899 Other long term (current) drug therapy; Z28.310 Unvaccinated for COVID-19; Z20.822 Contact with and (suspected) exposure to COVID-19
CPT/HCPCS: 36415; 71045; 74176; 74177; 76377; 76705; 80048; 80053; 81003; 81015; 82947; 83605; 83690; 83735; 84145; 85025; 86850; 86900; 86901; 87040; 87086; 87088; 87811; 96361; 96365; 96366; 96375; 99285; J1650; J1720; J1815; J2185; J2270; J2405; J7030; Q0169; Q9967

== ENCOUNTER 2022-11-24 09:26 | Inpatient (IN) | payer SELFPAY ==
--- OUTSIDE RECORDS SUMMARY | 2022-11-24 09:29 | XMS REPORT | Continuity of Care Document ---
:1980 Author Organization [facility] t Address [address] [place] [address] [address] [place] [address] Care Team Providers Name Role Phone PCP, PATIENT DOES NOT HAVE A Primary Care Physician Unavaila ble ANGELIC HOLDEN Attending Clinician Unavailable Angelic Holden DO Attending Clinician VICK PENALOZA Attending Clinician Unavailable Vick Frye Attending Clinician Sanchez TAYLOR Attending Clinician Unavailable Sanchez Jarquin Attending Clinician Doctor Unassigned, [place] Attending Clinician Unavailable VICK PENALOZA Admitting Clinician [...] of routine routine 00:00: g of this [place] [facility]i gynecologi 00 note Me dical helen helen might be Branch examinatio examinatio different n n from the original. ICD10 Diagnosis Term Mapping Analyst Utility Rubella Rubella Disease Active Univers immune immune 05-17 ity of 00:00: [place] 00 [facility] Dysmenorrh Dysmenorrh Disease Active U nivers ea ea 05-17 ity of 00:00: [place] 00 [facility] Allergies, Adverse Reactions, Alerts Allergy Allergy Status Severity Reaction(s) Onset Inactive Treating Comm ents Source Name Type Date Date Clinician NO KNOWN Drug Active [facility] ALLERGIE Class ity of [facility] Social History Social Habit Start Date Stop Date Quantity Comments Source Exposure to 2022-10-06 2022-10-16 Not sure [facility] SARS-CoV-2 00:00:00 19:25:00 [facility] (event) [facility] Alcohol intake 2022-10-16 2022-10-16 Current University 00:00:00 00:00:00 non-drinker of [facility] alcohol (finding) [facility] Tobacco use and 2013-05-17 2013-05-17 Smokeless tobacco Un iversity of exposure 00:00:00 00:00:00 non-user [facility] Sex [facility]igned At [birth year] [facility]00 [facility] Smoking Status Start Date Stop Date Source Never smoked tobacco [facility] Medications Ordered Filled Start Stop [...] 10-16 medication it y of 19:24: s [address] naproxen 2021- No 500mg 500 mg, Univ ers (NAPROSYN) 03-01 Oral, ity of tablet 500 07:45: 06:52 ONCE, 1 [place] as mg 00 :00 dose, On Medical Fri Branch 03/01/22 at 0245, Routine iopamidol 2021- No [id number] 120mL 120 mL, Univers (ISOVUE 03-01- Intravenou [...] No Univers medications 02-28 ity of 22:35: [address] Branch gabapentin No 300mg 300 mg, Un molina (NEURONTIN) 01-0930 Oral, ity of capsule 300 03:45: 02:47 [place] 1 [place] 00 :00 dose, On [facility] Branch 01/08/22 at 2245, RHETT gabapentin 2021- No [id number] 100mg Take 1 Univers 100 mg 01-08 0409 [id number] capsule by ity of capsule 00:00: 04:59 mouth 3 [place] 00 :00 (three) Medical times Branch daily for 10 days. No known No Univers medications 05-17 ity of 11:32: [place] 08 [facility] Immunizations Ordered Filled Immunization Date Status Comments [facility] e Immunization Name Name Rubella 2008-02-10 Completed [facility] 00:00:00 [facility] Rubella 2008-02-10 Completed [facility] 00:00:00 [facility] Rubella 2008-02-10 Completed [facility] 00:00:00 [facility] Rubella 2008-02-10 Completed University of 00:00:00 [place] [facility] Td 2005-05-17 Completed University of 00:00:00 [place] [facility] Td 2005-05-17 Completed University of 00:00:00 [place] [facility] Td 2005-05-17 Completed University of 00:00:00 [facility] Branch TD, NOS 2005-05-17 Completed University of 00:00:00 [facility] Vital Signs Vital Name Observation Time Observation Value Comments Source Systolic blood 2022-10-17 01:29:00 144 mm[Hg] Univer sity of pressure [facility] Diastolic blood 2022-10-17 01:29:00 85 mm[Hg] Unive rsity of pressure [facility] Heart rate 2022-10-17 01:29:00 116 /min Universi ty of [facility] Body temperature 2022-10-17 01:29:00 38.5 Josee Univ ersity of [facility] Branch Respiratory rate 2022-10-17 01:29:00 18 /min Univ ersity of [facility] Body height 2022-10-17 01:29:00 152.4 cm Universi ty of [place] [facility] Body weight 2022-10-17 01:29:00 57.153 kg Universi ty of [place] [facility] BMI 2022-10-17 01:29:00 24.61 kg/m2 Universi ty [facility] Oxygen saturation in 2022-10-17 01:29:00 100 /min University of Arterial blood by [facility] Pulse oximetry Branch Systolic blood 2022-03-01 07:00:00 136 mm[Hg] Univer sity of pressure [facility] Diastolic blood 2022-03-01 07:00:00 83 mm[Hg] Unive rsity of pressure [facility] Heart rate 2022-03-01 07:00:00 72 /min Universi ty of [facility] Respiratory rate 2022-03-01 07:00:00 14 /min Univ ersity of [facility] Oxygen saturation in 2022-03-01 07:00:00 98 /min University of Arterial blood by [facility] Pulse oximetry Branch Body temperature 2022-03-01 02:56:00 36.17 Josee Univ ersity of [facility] Body height 2022-03-01 02:56:00 152.4 cm Universi ty of [facility] Body weight 2022-03-01 02:56:00 54.432 kg [facility] BMI 2022-03-01 02:56:00 23.44 kg/m2 [facility] Systolic blood 2022-01-09 03:23:00 142 mm[Hg] Univer sity of pressure [facility] Diastolic blood 2022-01-09 03:23:00 77 mm[Hg] Unive [facility] Heart rate 2022-01-09 03:23:00 65 /min [facility] Respiratory rate 2022-01-09 03:23:00 18 /min [facility] acute hospital Oxygen saturation in 2022-01-09 03:23:00 99 /min [facility] Arterial blood by [facility] Pulse oximetry [facility] Body temperature 2022-01-09 01:40:00 36.83 Josee [facility] acute hospital Body height 2022-01-09 01:40:00 152.4 cm [facility] Body weight 2022-01-09 01:40:00 58.968 kg [facility] BMI 2022-01-09 01:40:00 25.39 kg/m2 [facility] Procedures Procedure Date / Time Performing Clinician Source Performed RAPID INFLUENZA A/B 2022-10-17 01:33:00 Angelic Holden [facility] COVID-19 (ID NOW RAPID 2022-10-17 01:33:00 Angelic Holden [facility] TESTING) [facility] CONSENT/REFUSAL FOR 2022-10-17 01:23:24 [facility]igned[facility] US PELVIS COMPLETE WITH 2022-03-01 08:09:47 Vick Penaloza [facility] TRANSVAGINAL [facility] CT ABDOMEN PELVIS W 2022-03-01 05:39:15 Vick Penaloza [facility] CONTRAST [facility] POCT TEST 2022-03-01 03:59:00 Vick Penaloza [facility] LIPASE 2022-03-01 03:55:00 Vick Penaloza [place] [facility] COMP. METABOLIC PANEL 2022-03-01 03:55:00 Vick Penaloza [facility] ([id number]) Medical Branch CBC WITH DIFF 2022-03-01 03:55:00 Vick Penaloza [facility] URINALYSIS 2022-03-01 03:55:00 Vick Penaloza [facility] NOTICE OF PRIVACY 2022-03-01 02:36:44 [facility]igned, [facility] CONSENT/REFUSAL FOR 2022-03-01 02:36:31 Doctor Unassigned, No Un iversity of [place] DIAGNOSIS AND TREATMENT Name Medical Branch NOTICE OF PRIVACY 2022-01-09 01:30:37 Doctor Unassigned, No [facility] Branch CONSENT/REFUSAL FOR 2022-01-09 01:29:11 Doctor Unassigned, No Un iversity of [place] DIAGNOSIS AND TREATMENT Name [facility] Encounters Start End Encounter Admission Attending Care Care Encounter Source Date/Time Date/Time Type Type Clinicians Facility Department ID 2022-10-16 2022-10-16 Emergency X NAVIN [facility] ERT [id number] Univers 19:38:00 20:23:00 ANGELIC malcolm [facility] 2022-10-16 2022-10-16 Obdulia Holden [facility] [id number] Univers 19:38:00 20:23:00 Angelic HENDERSON [id number] ity [facility] [id number] [facility] [id number] [address] 2022-02-28 2022-03-01 Emergency X CA [facility] ERT [id number] Univers 21:58:00 03:33:00 VICK malcolm [facility] 2022-02-28 2022-03-01 Emergency Ca [facility] [id number] Univers 21:58:00 03:33:00 Vick HENDERSON [id number] i ty [facility] [id number] [facility] [id number] [address] 2022-01-08 2022-01-08 Emergency X Sanchez TAYLOR [facility] ERT [id number] Univers 20:47:00 22:37:00 ity of [facility] 2022-01-08 2022-01-08 Emergency Silverio, K [facility] [id number] Univers 20:47:00 22:37:00 Nicole HENDERSON [id number] i ty of [place] [id number] [facility] [id number] [facility] 084 Branch 2022-01-08 2022-01-08 Orders Doctor MELIZA [id number] Univers 00:00:00 00:00:00 Only Unassigned, TAISHA [id number] ity of [place] [facility] [id number] [place] [id number] [facility] 009 Branch 2021-06-19 2021-06-19 Emergency X [facility] ERT [id number] Univers 14:48:00 14:48:00 [facility] Results Test Description Test Time Test Comments Results Result Comments Source COMP. METABOLIC PANEL (30821) 2022-03-01 04:28:28 Test Item Value Reference Range Interpretation Comme nts NA (test code = 5007383679) 134 mmol/L 135-145 L K (test code = 3866233754) 4.3 mmol/L 3.5-5.0 CL (test code = 6253003066) 101 mmol/L 98-108 CO2 TOTAL (test code = 3731486272) 23 mmol/L 23-31 AGAP (test code = 1314915973) 2-16 BUN (test code = 5764103691) 16 mg/dL 7-23 GLUCOSE (test code = 0981654701) 340 mg/dL 70-110 H CREATININE (test code = 0.57 mg/dL 0.50-1.04 3953027685) TOTAL BILI (test code = 0.1 mg/dL 0.1-1.3 2509022819) CALCIUM (test code = 0014445697) 9.1 mg/dL 8.6-10.6 T PROTEIN (test code = 2094939111) 7.4 g/dL 6.3-8.2 ALBUMIN (test code = 8136162511) 4.2 g/dL 3.5-5.0 ALK PHOS (test code = 6587412739) 111 U/L 34-122 ALTv (test code = 1742-6) 11 U/L 5-35 AST(SGOT) (test code = 6808117967) 21 U/L 13-40 eGFR (test code = 1702586308) mL/min/1.73m2 RAFIQ (test code = RAFIQ) Association [...] tests). Lab Interpretation (test code = Abnormal 58820-3) [facility]47 Test Item Value Reference Range Interpretation Comments LIPASE (test code = 6862586613) 115 U/L 0-220 Lab Interpretation (test code = Normal 39208-8) [facility] [id number] 04:24:27 Test Item Value Reference Range Interpretation Comments WBC (test code = See_Comment [Automated 2490-2) message] The sy stem which generated this [...] RDW-SD (test code = 40.7 fL 39.0-49.9 88217-3) RDW-CV (test code = 14.6 % 12.0-15.5 788-0) PLT (test code = See_Comment [Automated 777-3) message] The sy stem which generated this result transmitted reference range : 166 - 358 10*3/ ?L. The reference r dnoa was not used to interpret this result as normal/abnormal . MPV (test code = 13.4 fL 9.5-12.9 H 97451-1) IPF % (test code = 13.7 % 1.3-7.7 H Platelet count 5225023406) measured by fluorescence method. NRBC/100 WBC (test See_Comment [Automat ed code = 9616677333) message] The system which generated this result transmitted reference range : 0.0 - 10.0 /100 WBCs. The refer ence range was not u sed to interpret th is result as normal/abnormal . NRBC x10^3 (test code <0.01 See_Comment [Auto mated = 6642572747) message] The s ystem which generated this result transmitted reference range : 10*3/?L. The reference range was not used to interpret this result as normal/abnormal . GRAN MAT (NEUT) % 51.8 % (test code = 770-8) IMM GRAN % (test code 0.30 % = 1854266455) LYMPH % (test code = 34.1 % 736-9) MONO % (test code = 9.5 % 5905-5) EOS % (test code = 4.0 % 713-8) BASO % (test code = 0.3 % 706-2) GRAN MAT x10^3(ANC) 3.39 10*3/uL 1.88-7.09 (test code = 8982738229) IMM GRAN x10^3 (test <0.03 0.00-0.06 code = 4138674831) LYMPH x10^3 (test code 2.23 10*3/uL 1.32-3.29 = 731-0) MONO x10^3 (test code 0.62 10*3/uL 0.33-0.92 = 742-7) EOS x10^3 (test code = 0.26 10*3/uL 0.03-0.39 711-2) BASO x10^3 (test code <0.03 0.01-0.07 = 704-7) Lab Interpretation Abnormal (test code = 75915-0) [id number] 03:59:00 Test Item Value Reference Range Interpretation Comments POCT PREG (test code = 1605) negative On board controls acceptable with present C Line (test code = 3574) POCT PREG LOT # (test code = 3575) [id number] POCT PREG TEST DATE (test 08/12/2023 code = 3576) Lab Interpretation (test code = Normal 12008-7) [facility]"
[2022-11-24] MEDS ORDERED: MORPHINE 4 MG/ML SYR ONE ×2 (09:49→14:32)
[2022-11-24] MEDS ORDERED: ONDANSETRON 4 MG/2 ML VIAL ONE ×2 (09:49→14:35)
[2022-11-24] MEDS ORDERED: CEFEPIME 2 GM VIAL ONE (10:02)
[2022-11-24] MEDS ORDERED: Ringers Lactate 2,000 ML IV ONE (10:02)
[2022-11-24] MEDS ORDERED: NA CHLORIDE 0.9% 100 ML ONE (10:02)
[2022-11-24 10:06] LABS: Absolute Lymphocytes (CBC) 1.3 K/uL (0.7-4.9); Hematocrit 25.3 % (36.0-45.0); Lymphocytes % 7.4 % (15.3-44.8); MCV 77.5 fL (80-100); MPV 8.2 fL (7.6-11.3); RBC Red Blood Cell Count 3.26 M/uL (3.86-4.86)
[2022-11-24 10:27] LABS: AST/SGOT 9 U/L (15-37); Albumin 2.7 g/dL (3.4-5.0); Alkaline Phosphatase 118 U/L (45-117); BUN Blood Urea Nitrogen 16 mg/dL (7-18); Bicarbonate 21 mmol/L (21-32); Bilirubin Total 0.4 mg/dL (0.2-1.0); Glomerular Filtration Rate 84 ml/min (=/>90); Glucose Level 270 mg/dL (74-106); Lipase 168 U/L (73-393); Potassium 4.3 mmol/L (3.5-5.1); Sodium Level 132 mmol/L (136-145)
[2022-11-24 10:42] LABS: ALT/SGPT < 10 U/L (13-56)
[2022-11-24 11:07] LABS: Urine Blood 2+ (Negative); Urine Glucose 1+ (Negative); Urine Protein 2+ (Negative); Urine Specific Gravity 1.015 (1.005-1.030)
[2022-11-24 11:14] LABS: Urine Specific Gravity/Preg 1.015 (1.005-1.030)
[2022-11-24 11:16] LABS: Transitional Epithelial <5 /HPF (None Seen); Urine Bacteria 20-50 /HPF (<20); Urine Mucus Slight /HPF (None Seen); Urine RBC 21-50 /HPF (None Seen); Urine WBC Clump Rare /HPF (None Seen)
--- NOTE | 2022-11-24 11:23 | RAD REPORT ---
EXAM DESCRIPTION: CTAbdomen Pelvis W Contrast - 11/24/2022 11:14 am CLINICAL HISTORY: Abdominal pain. flank pain, fever COMPARISON: Abdomen Pelvis W Contrast dated 11/07/2022; Abdomen Pelvis W Contrast dated 10/28/2022 ; Abdomen Pelvis W Contrast dated 10/24/2022; Abdomen Pelvis W Contrast dated 10/20/2022 TECHNIQUE: Biphasic CT imaging of the abdomen and pelvis was performed with 100 ml non-ionic IV cont rast. All CT scans are performed using dose optimization technique as appropriate and may include automated exposure control or mA/KV adjustment according to patient size. FINDINGS: The lung bases are clear. The liver, spleen, pancreas, adrenal glands and right kidney are within normal limits. Plantar double -J stent remains in place with proximal and distal aspect in the left renal pelvis and urinary bladde r. Heterogenous enhancement pattern affects the left kidney, likely indicate pyelonephritis. The left kidney also appears mildly enlarged. No bowel obstruction, free air, free fluid or abscess. The appendix is normal. No evidence of signi ficant lymphadenopathy. No suspicious bony findings. IMPRESSION: The left kidney remains enlarged with heterogenous enhancement pattern and left double-J stent is in place. This likely likely indicates pyelonephritis. Elsewhere there is no new finding se en.
--- NOTE | 2022-11-24 12:16 | ER ---
Nurse's Notes [facility] Name: Tati Oliveros Age: 41 yrs Sex: Female : 1980 Arrival Date: 11/24/2022 Time: 09:28 Bed 6 Private MD: Diagnosis: Acute Pyelonephritis Presentation: 11/24 09:39 Chief complaint: Patient states: Back pain with dysuria for 3 days. Fever for 2 days. ll1 Had L kidney stent place Oct.21. Coronavirus screen: Vaccine status: Patient reports receiving the 2nd dose of the covid vaccine. Client denies travel out of the [place] in the last 14 days. At this time, the client does not indicate any symptoms associated with coronavirus-19. Ebola Screen: Patient denies travel to an Ebola-affected area in the 21 days before illness onset. Initial Sepsis Screen: Does the patient meet any 2 criteria? HR > 90 bpm. No. Patient's initial sepsis screen is negative. Does the patient have a suspected source of infection? Yes: Dysuria/Frequency/Urgency/UTI. Risk Assessment: Do you want to hurt yourself or someone else? Patient reports no desire to harm self or others. Onset of symptoms was November 22, 2022. 09:39 Method Of Arrival: Ambulatory ll1 09:39 Acuity: NICK 3 ll1 Triage Assessment: 09:41 General: Appears uncomfortable, ill, Behavior is cooperative, appropriate for age, ll1 crying. Pain: Complains of pain in back Pain currently is 10 out of 10 on a pain scale. Quality of pain is described as aching. : Reports burning with urination, cramping, pain in left in lower back urgency. Musculoskeletal: Circulation, motion, and sensation intact. Capillary refill < 3 seconds. INSPECTOR AIDE: 18:25 LMP N/A - control method db Historical: - Allergies: 09:39 No Known Allergies; ll1 - PMHx: 09:39 Diabetes - NIDDM; Hypertension; ll1 - PSHx: 09:39 kidney stent; ll1 - Immunization history:: Client reports receiving the 2nd dose of the Covid vaccine. - Social history:: Smoking status: Patient denies any tobacco usage or history of. Screenin:07 [facility] ED Fall Risk Assessment (Adult) History of falling in the last 3 months, db including since admission No falls in past 3 months (0 pts) Confusion or Disorientation No (0 pts) Intoxicated or Sedated No (0 pts) Impaired Gait No (0 pts) Mobility Assist Device Used No (0 pt) Altered Elimination No (0 pt) Score/Fall Risk Level 0 - 2 = Low Risk Oriented to surroundings, Maintained a safe environment. Abuse screen: Denies threats or abuse. Denies injuries from another. Nutritional screening: No deficits noted. Tuberculosis screening: No symptoms or risk factors identified. Assessment: 09:50 Reassessment: Patient appears in no apparent distress at this time. Patient and/or db family updated on plan of care and expected duration. Pain level reassessed. pain in left flank with nausea. Pain: Complains of pain in left flank. Neuro: Level of Consciousness is awake, alert, obeys commands, Oriented to person, place, time, situation, Moves all extremities. Speech is normal. GI: Abdomen is flat, non-distended, Reports nausea. 11:00 Reassessment: Patient appears in no apparent distress at this time. Patient and/or db family updated on plan of care and expected duration. Pain level reassessed. Patient is alert, oriented x 3, equal unlabored respirations, skin warm/dry/pink. 12:00 Reassessment: Patient appears in no apparent distress at this time. Patient and/or db family updated on plan of care and expected duration. Pain level reassessed. Patient is alert, oriented x 3, equal unlabored respirations, skin warm/dry/pink. Patient states feeling better. Pain: Pain currently is 5 out of 10 on a pain scale. 13:00 Reassessment: Patient appears in no apparent distress at this time. Patient and/or db family updated on plan of care and expected duration. Pain level reassessed. Patient is alert, oriented x 3, equal unlabored respirations, skin warm/dry/pink. 14:35 Reassessment: Patient appears in no apparent distress at this time. Pain: Complains of db pain in abdomen and back Pain currently is 9 out of 10 on a pain scale. 15:38 Reassessment: Patient appears in no apparent distress at this time. Patient and/or db family updated on plan of care and expected duration. Pain level reassessed. Patient is alert, oriented x 3, equal unlabored respirations, skin warm/dry/pink. Patient states feeling better. 16:50 Reassessment: Patient appears in no apparent distress at this time. Patient and/or db family updated on plan of care and expected duration. Pain level reassessed. Patient is alert, oriented x 3, equal unlabored respirations, skin warm/dry/pink. sleeping. 18:15 Reassessment: Patient appears in no apparent distress at this time. Patient and/or db family updated on plan of care and expected duration. Pain level reassessed. Patient is alert, oriented x 3, equal unlabored respirations, skin warm/dry/pink. patient admitted see [facility]. Vital Signs: 09:39 BP 120 / 69; Pulse 103; Resp 18; Temp 99.4(O); Pulse Ox 99% on R/A; Weight 54.88 kg; ph Height 5 ft. 0 in. (152.40 cm); Pain 10/10; 09:49 BP 133 / 78; Pulse 94; Resp 18; Pulse Ox 100% ; Pain 10/10; db 09:49 Pain 5/10; db 11:16 BP 123 / 76; Pulse 81; Resp 16; Pulse Ox 100% on R/A; db 12:00 BP 106 / 72; Pulse 78; Resp 18; Pulse Ox 100% on R/A; db 13:00 BP 147 / 66; Pulse 101; Resp 16; Pulse Ox 100% on R/A; db 14:25 BP 161 / 76; Pulse 114; Resp 16; Pulse Ox 100% on R/A; db 15:30 BP 116 / 99; Pulse 118; Resp 18; Pulse Ox 100% on R/A; db 17:00 BP 123 / 68; Pulse 99; Resp 16; Pulse Ox 97% on R/A; db 09:39 Body Mass Index 23.63 (54.88 kg, 152.40 cm) ph ED Course: 09:28 Patient arrived in ED. mr 09:32 Chivo Pandya PA is PHCP. jmm 09:32 Hugo Fonseca MD is Attending Physician. jmm 09:38 Shahnaz Potts RN is Primary Nurse. db 09:39 Arm band placed on Patient placed in an exam room, on a stretcher. ll1 09:41 Triage completed. ll1 09:48 Inserted saline lock: 20 gauge in right antecubital area, using aseptic technique. db Blood collected. 10:05 First set of blood cultures drawn by me. db 10:20 Second set of blood cultures drawn by me. db 12:15 Audelia Ríos MD is Hospitalizing Provider. [facility] 15:38 Patient has correct armband on for positive identification. Bed in low position. Call db light in reach. Side rails up X 1. Pulse ox on. NIBP on. Warm blanket given. 17:00 No provider procedures requiring assistance completed. Patient admitted, IV remains in db place. Administered Medications: 09:49 Drug: Zofran (Ondansetron) 4 mg Route: IVP; Site: right antecubital; db 19:09 Follow up: Response: No adverse reaction db 09:49 Drug: morphine 4 mg Route: IVP; Infused Over: 4 mins; Site: right antecubital; db 19:09 Follow up: Response: No adverse reaction db 09:57 CANCELLED (Duplicate Order): NS 0.9% (30 ml/kg) 30 ml/kg IV at bolus once; Sepsis [facility] Protocol 10:20 Drug: Lactated Ringers Solution 2000 ml Route: IV; Rate: 2000 bolus; Site: right db antecubital; 12:00 Follow up: Response: No adverse reaction; IV Status: Completed infusion; IV Intake: db 2000ml 11:05 Drug: Cefepime 2 grams Route: IVPB; Rate: 200 ml/hr; Infused Over: 30 mins; Site: right db antecubital; 12:15 Follow up: Response: No adverse reaction; IV Status: Completed infusion; IV Intake: db 100ml 14:34 Drug: Zofran (Ondansetron) 4 mg Route: IVP; Site: right antecubital; db 19:08 Follow up: Response: No adverse reaction db 14:35 Drug: morphine 4 mg Route: IVP; Infused Over: 4 mins; Site: right antecubital; db 19:08 Follow up: Response: No adverse reaction db Medication: 17:00 VIS not applicable for this client. db Intake: 12:00 IV: 2000ml; Total: 2000ml. db 12:15 IV: 100ml; Total: 2100ml. db Outcome: 12:15 Decision to Hospitalize by Provider. lina 17:00 Admitted to Med/surg family with patient, via stretcher. db 17:00 Condition: stable 17:00 Instructed on the need for admit. 19:10 Patient left the ED. db Signatures: Chivo Pandya PA PA jmm Rivera, Joi raman Alexandra Orona, RN RN ph Aldair Watkins, KADY RN ll1 Shahnaz Potts RN RN db Corrections: (The following items were deleted from the chart) 10:38 09:39 Pulse 103bpm; Resp 18bpm; Pulse Ox 99% RA; Temp 99.4F Oral; 54.88 kg; Height 5 ph ft. 0 in.; BMI: 23.6; Pain 10/; ll1
--- NOTE | 2022-11-24 12:16 | EDPHYS ---
Physician Documentation [facility] Name: Tati Oliveros Age: 41 yrs Sex: Female : 1980 Arrival Date: 11/24/2022 Time: 09:28 Bed 6 Private MD: ED Physician Hugo Fonseca HPI: 11/24 09:35 This 41 yrs old Female presents to ER via Ambulatory with complaints of Back jmm Pain, Fever. 09:35 The patient presents with pain that is acute. Onset: The symptoms/episode jmm began/occurred gradually, 2 day(s) ago. The pain does not radiate. This is a 41 year old female with a history of DM, htn that presents to the ED with complaints of left flank pain fever beginning approx 2 days ago. Has had previous episodes of pyelonephritis 1 month prior with stent placement by Dr. Durand. . 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 - Social history:: Smoking status: Patient denies any tobacco usage or history of. ROS: 09:35 Constitutional: Positive for body aches, chills, fever. jmm 09:35 Back: Positive for flank pain, on the left. 09:35 All other systems are negative. Exam: 09:35 Constitutional: This is a well developed, well nourished patient who is awake, alert, jmm and in no acute distress. Head/Face: atraumatic. Eyes: EOMI, no conjunctival erythema appreciated ENT: Moist Mucus Membranes Neck: Trachea midline, Supple Chest/axilla: Normal chest wall appearance and motion. Cardiovascular: Regular rate and rhythm. No edema appreciated Respiratory: Normal respirations, no respiratory distress appreciated Abdomen/GI: Non distended 09:35 Skin: General appearance color normal MS/ Extremity: Moves all extremities, no obvious deformities appreciated, no edema noted to the lower extremities Neuro: Awake and alert Psych: Behavior is normal, Mood is normal, Patient is cooperative and pleasant 09:35 Back: CVA tenderness, that is moderate, is noted on the left. Vital Signs: 09:39 BP 120 / 69; Pulse 103; Resp 18; Temp 99.4(O); Pulse Ox 99% on R/A; Weight 54.88 kg; ph Height 5 ft. 0 in. (152.40 cm); Pain 10/10; 09:49 BP 133 / 78; Pulse 94; Resp 18; Pulse Ox 100% ; Pain 10/10; db 09:49 Pain 5/10; db 11:16 BP 123 / 76; Pulse 81; Resp 16; Pulse Ox 100% on R/A; db 12:00 BP 106 / 72; Pulse 78; Resp 18; Pulse Ox 100% on R/A; db 13:00 BP 147 / 66; Pulse 101; Resp 16; Pulse Ox 100% on R/A; db 14:25 BP 161 / 76; Pulse 114; Resp 16; Pulse Ox 100% on R/A; db 15:30 BP 116 / 99; Pulse 118; Resp 18; Pulse Ox 100% on R/A; db 17:00 BP 123 / 68; Pulse 99; Resp 16; Pulse Ox 97% on R/A; db 09:39 Body Mass Index 23.63 (54.88 kg, 152.40 cm) ph MDM: 09:35 Patient medically screened. rafal 12:13 Data reviewed: vital signs, nurses notes. Consideration of Admission/Observation [facility] Patient was admitted/placed on observation. Management of patient was discussed with the following: Dr. Durand, Dr. Ríos. I considered the following discharge prescriptions or medication management in the emergency department Medications were administered in the Emergency Department. See MAR. Counseling: I had a detailed discussion with the patient and/or guardian regarding: the historical points, exam findings, and any diagnostic results supporting the discharge/admit diagnosis, lab results, radiology results, the need for further work-up and treatment in the hospital. 11/24 09:38 Order name: CBC with Diff [facility] 11/24 09:38 Order name: CMP [facility] 11/24 09:38 Order name: Lipase [facility] 11/24 09:38 Order name: Lactate w/ 2H reflex if indic. [facility] 11/24 09:38 Order name: Blood Culture Adult (2) [facility] 11/24 09:39 Order name: Urine Culture [facility] 11/24 09:39 Order name: Urine Microscopic Only [facility] 11/24 09:51 Order name: PT-INR [facility] 11/24 10:12 Order name: CBC with Automated Diff; Complete Time: 10:18 EDME 11/24 10:42 Order name: Comprehensive Metabolic Panel; Complete Time: 10:45 EDMS 11/24 10:42 Order name: Lipase; Complete Time: 10:45 EDME 11/24 11:00 Order name: Lactate w/ 2H reflex if indic.; Complete Time: 11:24 [facility] 11/24 11:07 Order name: Urine Dipstick-Ancillary; Complete Time: 11:24 EDME 11/24 11:12 Order name: Urine --Ancillary (enter results) eb 11/24 09:38 Order name: CT Abd/Pelvis - IV Contrast Only [facility] 11/24 09:38 Order name: IV Saline Lock; Complete Time: 10:00 [facility] 11/24 09:38 Order name: Labs collected and sent; Complete Time: 11:06 [facility] 11/24 11:14 Order name: Urine --Ancillary; Complete Time: 11:24 [facility] 11/24 11:23 Order name: CT; Complete Time: 11:24 [facility] 11/24 11:26 Order name: Urine Microscopic Only; Complete Time: 11:34 EDMS 11/24 12:23 Order name: SARS RAPID ph 11/24 12:39 Order name: Protime (+INR); Complete Time: 12:52 [facility] 11/24 13:38 Order name: SARS-COV-2 Antigen Rapid; Complete Time: 13:39 [facility] 11/24 09:39 Order name: Urine Dipstick-Ancillary (obtain specimen); Complete Time: 11:06 [facility] 11/24 10:39 Order name: Labs - recollect needed: recollect blue top/ short per Kelsey; Complete eb Time: 12:56 Administered Medications: 09:49 Drug: Zofran (Ondansetron) 4 mg Route: IVP; Site: right antecubital; db 19:09 Follow up: Response: No adverse reaction db 09:49 Drug: morphine 4 mg Route: IVP; Infused Over: 4 mins; Site: right antecubital; db 19:09 Follow up: Response: No adverse reaction db 09:57 CANCELLED (Duplicate Order): NS 0.9% (30 ml/kg) 30 ml/kg IV at bolus once; Sepsis [facility] Protocol 10:20 Drug: Lactated Ringers Solution 2000 ml Route: IV; Rate: 2000 bolus; Site: right db antecubital; 12:00 Follow up: Response: No adverse reaction; IV Status: Completed infusion; IV Intake: db 2000ml 11:05 Drug: Cefepime 2 grams Route: IVPB; Rate: 200 ml/hr; Infused Over: 30 mins; Site: right db antecubital; 12:15 Follow up: Response: No adverse reaction; IV Status: Completed infusion; IV Intake: db 100ml 14:34 Drug: Zofran (Ondansetron) 4 mg Route: IVP; Site: right antecubital; db 19:08 Follow up: Response: No adverse reaction db 14:35 Drug: morphine 4 mg Route: IVP; Infused Over: 4 mins; Site: right antecubital; db 19:08 Follow up: Response: No adverse reaction db Disposition Summary: 11/24/22 12:15 Hospitalization Ordered Hospitalization Status: Inpatient Admission [facility] Provider: Audelia Ríos Location: Telemetry/MedSur (Inpatient) [facility] Condition: Stable [facility] Problem: an acute exacerbation [facility] Symptoms: are unchanged [facility] Bed/Room Type: Standard [facility] Room Assignment: 229(11/24/22 16:57) Diagnosis - Acute Pyelonephritis [facility] Forms: - Medication Reconciliation Form [facility] - SBAR form [facility] Signatures: Dispatcher [employer] Mary Fung RN RN dw Anderson, Corey, MD MD cha Mickail, Joel, PA PA [facility] Rosey Bingham Lynsay, RN RN ll1 Shahnaz Potts RN RN db Corrections: (The following items were deleted from the chart) 09:57 09:56 NS 0.9% (30 ml/kg) 30 ml/kg IV at bolus once; Sepsis Protocol ordered. [facility] 16:57 12:15 [facility] micaela
[2022-11-24 12:39] LABS: Protime INR 1.16
[2022-11-24 13:37] LABS: SARS-CoV-2 Antigen Rapid Res Negative (Negative)
[2022-11-24] MEDS ORDERED: Magnesium Sulfate 2gm IVPB 2 G/50 ML BAG IV ONE (14:05)
[2022-11-24] MEDS ORDERED: NA CHLORIDE 0.9% 1,000 ML ONE ×2 (14:05→18:23)
[2022-11-24] MEDS ORDERED: MORPHINE 2 MG/ML SYR IV PRN (15:22)
[2022-11-24 16:52] VITALS: BMI 23.6
[2022-11-24] MEDS ORDERED: MORPHINE 2 MG/ML SYR ONE (18:23)
[2022-11-24] MEDS: NA CHLORIDE 0.9% 1,000 ML IV SCH ×2 (18:26→20:39)
[2022-11-24] MEDS: ACETAMINOPHEN 500 MG TAB PO PRN (18:38)
[2022-11-24] MEDS ORDERED: ACETAMINOPHEN 500 MG TAB ONE (18:39)
[2022-11-24] MEDS: ONDANSETRON 4 MG/2 ML VIAL IV PRN (20:00)
[2022-11-24] MEDS: CEFTRIAXONE 1,000 MG in NA CHLORIDE 0.9% 50 ML IVPB SCH (20:01)
[2022-11-24] MEDS: HYDROMORPHONE HCL 1 MG/ML INJ IV PRN (20:52)
[2022-11-25] MEDS: HYDROMORPHONE HCL 1 MG/ML INJ IV PRN ×5 (01:27→23:53)
[2022-11-25] MEDS: ACETAMINOPHEN 500 MG TAB PO PRN ×2 (01:29→12:36)
[2022-11-25] MEDS: NA CHLORIDE 0.9% 1,000 ML IV SCH ×3 (02:00→16:54)
--- NOTE | 2022-11-25 02:08 | P.HP ---
Certification for Inpatient Patient admitted to: Inpatient With expected LOS: >2 Midnights Practitioner: I am a practitioner with admitting privileges, knowledge of patient current condition, hospital course, and medical plan of care. Services: Services provided to patient in accordance with Admission requirements found in Title 42 Section 412.3 of the Code of Federal Regulations Patient History Date of Service: 11/24/22 Reason for admission: Recurrent urinary tract infection History of Present Illness: patient is a 41-year-old female who was recently in the hospital for p yelonephritis and had a J-stent placed in early October. She is scheduled to be seen at Urology office on Friday to have this possibly removed. She has had recurring infections and she has been having some pain for the last few days. She came to the hospital for further evaluation. In the emergency room she was found to have leukocytosis as well as a urinary tract infection once again. She does require a lot of pain medication and when she was in the hospital she did require intravenous pain meds up until the time of discharge. At this time, E emergency room PA has spoken with Urology and they wanted admitted to our hospital for antibiotic therapy. Until the foreign body is removed I think she will have recurring urinary tract infections. Plan of care would be to continue with IV antibiotics and as long as she is improving hopefully discharge over the next 48-72 hours so that she can follow up on Friday to have the stent removed. 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 moist/pink, EOMI, Sclerae nonicteric Neck: Supple, 2+ carotid pulse no bruit, No LAD, Without JVD or thyroid abnormality Respiratory: Clear to auscultation bilaterally, Normal air movement Cardiovascular: Regular rate/rhythm, Normal S1 S2 Gastrointestinal: Normal bowel sounds, No tenderness Musculoskeletal: No tenderness Integumentary: No rashes Neurological: Normal gait, Normal speech, Normal strength at 5/5 x4 extr, Normal tone, Normal affect Lymphatics: No axilla or inguinal lymphadenopathy - Studies Laboratory Data (last 24 hrs) 11/24/22 12:28: PT 12.8 H, INR 1.16 11/24/22 09:48: Sodium 132 L, Potassium 4.3, BUN 16, Creatinine 0.88, Glucose 270 H, Total Bilirubin 0.4, AST 9 L, ALT < 10 L, Alkaline Phosphatase 118 H, Lipase 168 11/24/22 09:48: WBC 17.00 H, Hgb 8.2 L, Hct 25.3 L, Plt Count 357 Assessment & Plan - Problems (Diagnosis) (1) Presence of double-J stent Current Visit: Yes Status: Acute (2) Acute pyelonephritis Current Visit: No Status: Acute (3) DM type 2 (diabetes mellitus, type 2) Current Visit: No Status: Acute Qualifiers: Diabetes mellitus fdc insulin use: with fdc use Diabetes mellitus complication status: without complication Qualified Code(s): E11.9 - Type 2 diabetes mellitus without complications; Z79.4 - superintendent terminal (current) use of insulin (4) Hydronephrosis, left Current Visit: No Status: Acute - Plan Plan: 1. IV fluids 2. IV antibiotics 3. pain control 4. Outpatient urology follow-up to remove J-stent 5. Strict blood pressure and blood sugar control 6. Gi DVT prophylaxis Discharge Plan: Home Plan to discharge in: Greater than 2 days - Advance Directives Does patient have a Living Will: No Does patient have a Durable POA for Healthcare: No - Code Status/Comfort Care Code Status Assessed: Yes Code Status: Full Code Critical Care: No Time Spent Managing PTS Care (In Minutes): 45
[2022-11-25 04:05] LABS: Absolute Lymphocytes (CBC) 1.3 K/uL (0.7-4.9); Hematocrit 21.5 % (36.0-45.0); Lymphocytes % 9.7 % (15.3-44.8); MCV 77.9 fL (80-100); MPV 8.1 fL (7.6-11.3); RBC Red Blood Cell Count 2.76 M/uL (3.86-4.86)
[2022-11-25 04:09] LABS: Protime INR 1.25
[2022-11-25 04:30] LABS: AST/SGOT 6 U/L (15-37); Albumin 2.3 g/dL (3.4-5.0); Alkaline Phosphatase 106 U/L (45-117); BUN Blood Urea Nitrogen 8 mg/dL (7-18); Bicarbonate 25 mmol/L (21-32); Bilirubin Total 0.3 mg/dL (0.2-1.0); Glomerular Filtration Rate 98 ml/min (=/>90); Glucose Level 218 mg/dL (74-106); Potassium 4.1 mmol/L (3.5-5.1); Sodium Level 131 mmol/L (136-145)
[2022-11-25 04:35] LABS: ALT/SGPT < 10 U/L (13-56)
[2022-11-25] MEDS ORDERED: INFLUENZA VACCINE (for 6+ mo) 0.5 ML DOSE IMVAC ONE (08:00)
[2022-11-25] MEDS: CEFTRIAXONE 1,000 MG in NA CHLORIDE 0.9% 50 ML IVPB SCH ×2 (09:45→20:01)
[2022-11-25] MEDS: ONDANSETRON 4 MG/2 ML VIAL IV PRN ×2 (12:36→20:01)
--- NOTE | 2022-11-25 14:28 | P.PN ---
Subjective Date of Service: 11/25/22 Chief Complaint: Recurrent urinary tract infection Ms. Ttai White is Malaysian-speaking only. The following history was obtained with the assistance of [employer] certified Malaysian-[place]er web operations specialist, Ms. Aziza Welsh, (ID# [id number]). No acute events overnight. She reports persistent left flank pain. She describes the pain as sharp and grades it a 9/10 in severity. She states that her current pain regimen helps; however, the medication wears off too quickly. She denies any nausea/vomiting or diarrhea. Review of Systems 10-point ROS is otherwise unremarkable General: Fever, Chills Genitourinary: Dysuria Musculoskeletal: Back Pain (left-flank) Physical Examination - Vital Signs Temperature: 99.1 F Blood Pressure: 112/66 Pulse: 84 Respirations: 16 Pulse Ox (%): 98 Assessment And Plan - Plan General: Alert, Oriented x3, Mild distress HEENT: Atraumatic, Mucous membr. moist/pink, Sclerae nonicteric Neck: JVD not distended Respiratory: Clear to auscultation bilaterally, Normal air movement Cardiovascular: No edema, Regular rate and rhythm, Normal S1 S2, No gallops, No rubs, No murmurs Gastrointestinal: Normal bowel sounds, Soft and benign, Non-distended, No rebound, No guarding, Tenderness (mid-left abdomen) Musculoskeletal: No clubbing, Other (left CVA tenderness) Integumentary: No rashes Neurological: Normal speech, Cranial nerves 3-12 intact, Normal affect #Sepsis likely secondary to Acute Gram-Negative Pyelonephritis s/p Ureteral Stent # Mild Left Hydronephrosis # History of ESBL Urinary Tract Infections She met criteria based on temperature > 100.9 F, HR > 90 bpm, WBC > 12,000, and the source is urinary. Severe sepsis is suspected due to concern for tissue hypoperfusion/organ dysfunction based on platelet count < 100,000 and lactic acid > 2 mmol/L. - Urology consulted and spoke with Dr. Durand - recommendations appreciated - Recommends serial imaging of kidney to monitor for abscess formation - CT abdomen/pelvis = "the left kidney remains enlarged with heterogenous enhancement pattern and left double-J stent is in place. This likely likely indicates pyelonephritis. Elsewhere there is no new finding seen." - Sepsis order set was initiated - Lactate: 1.3 - Procalcitonin = 3.33 - Blood cultures drawn before antibiotics were given - Broad spectrum antibiotics started: Ceftriaxone - In regards to fluids: - 30 mL/kg of IV fluids was given based on patient's actual body weight # Hyperglycemia in Type II Diabetes Mellitus - Continue correction scale insulin # Hypertension - Hold home medications due to concern for sepsis Arnie Moulton M.D.
[2022-11-25] MEDS: HYDROCODONE/APAP 7.5/325 MG TAB PO PRN (18:57)
[2022-11-25] MEDS: MELATONIN 5 MG TABLET PO PRN (21:33)
[2022-11-26] MEDS: NA CHLORIDE 0.9% 1,000 ML IV SCH ×4 (01:34→23:59)
[2022-11-26] MEDS: HYDROCODONE/APAP 7.5/325 MG TAB PO PRN ×2 (03:40→21:09)
[2022-11-26 03:42] LABS: Absolute Lymphocytes (CBC) 1.6 K/uL (0.7-4.9); Hematocrit 21.1 % (36.0-45.0); Lymphocytes % 22.5 % (15.3-44.8); MCV 77.4 fL (80-100); MPV 8.2 fL (7.6-11.3); RBC Red Blood Cell Count 2.72 M/uL (3.86-4.86)
[2022-11-26] MEDS: HYDROMORPHONE HCL 1 MG/ML INJ IV PRN ×4 (05:56→22:18)
[2022-11-26] MEDS: ONDANSETRON 4 MG/2 ML VIAL IV PRN ×3 (05:56→21:09)
[2022-11-26] MEDS: CEFTRIAXONE 1,000 MG in NA CHLORIDE 0.9% 50 ML IVPB SCH ×2 (08:14→21:09)
[2022-11-26] MEDS ORDERED: LIDOCAINE JELLY 2% 5 ML SYRINGE TOP ONE (11:40)
--- NOTE | 2022-11-26 19:19 | P.PN ---
Subjective Date of Service: 11/26/22 Chief Complaint: Recurrent urinary tract infection Ms. Tati White is Guinean-speaking only. The following history was obtained with the assistance of [employer] certified Guinean-[place]ian career services representative, Makenna Patti Ramon, (ID# [id number]). No acute events overnight. She reports that her left flank pain is gradually improving, now only grading it a 4/10 in severity. She denies any nausea/vomiting or diarrhea. Appreciate Urology recommendations. Review of Systems 10-point ROS is otherwise unremarkable Musculoskeletal: Back Pain (left flank) Physical Examination - Vital Signs Temperature: 98.1 F Blood Pressure: 126/63 Pulse: 82 Respirations: 14 Pulse Ox (%): 96 - Studies Microbiology Data (last 24 hrs): 11/24/22 11:01 Clean Catch Urine Valentine Count - Final >100,000 CFU/ML. 11/24/22 11:01 Clean Catch Urine - Final Escherichia Coli Gram Neg Sanchez Assessment And Plan - Plan General: Alert, Oriented x3, No distress HEENT: Atraumatic, Mucous membr. moist/pink, Sclerae nonicteric Neck: JVD not distended Respiratory: Clear to auscultation bilaterally, Normal air movement Cardiovascular: No edema, Regular rate and rhythm, Normal S1 S2, No gallops, No rubs, No murmurs Gastrointestinal: Soft, Non-distended, No rebound, No guarding, No tenderness Musculoskeletal: No clubbing, Other (left CVA tenderness - improved) Integumentary: No rashes Neurological: Normal speech, Normal affect # Sepsis likely secondary to Acute Escherichia Coli Pyelonephritis s/p Ureteral Stent # Mild Left Hydronephrosis # History of ESBL Urinary Tract Infections She met criteria based on temperature > 100.9 F, HR > 90 bpm, WBC > 12,000, and the source is urinary. Severe sepsis is suspected due to concern for tissue hypoperfusion/organ dysfunction based on platelet count < 100,000 and lactic acid > 2 mmol/L. - Urology consulted and spoke with Dr. Durand - recommendations appreciated - Recommends serial imaging of kidney to monitor for abscess formation - Infectious Diseases consulted and spoke with Dr. Almanzar - recommendations appreciated - CT abdomen/pelvis = "the left kidney remains enlarged with heterogenous enhancement pattern and left double-J stent is in place. This likely likely indicates pyelonephritis. Elsewhere there is no new finding seen." - Sepsis order set was initiated - Lactate: 1.3 - Procalcitonin = 3.33 - Blood cultures drawn before antibiotics were given - Broad spectrum antibiotics started: Ceftriaxone - In regards to fluids: - 30 mL/kg of IV fluids was given based on patient's actual body weight # Hyperglycemia in Type II Diabetes Mellitus - Continue correction scale insulin # Hypertension - Hold home medications due to concern for sepsis Arnie Moulton M.D.
--- NOTE | 2022-11-26 22:25 | P.CNS ---
Date of Consult: 11/26/22 41-year-old woman with poorly controlled DM2, history of recurrent UTIs, recently admitted with pyelonephritic sepsis secondary to an E. coli UTI with associated left hydroureteronephrosis status post cystoscopy with left ureteral stent placement 10/20/2022 along with Stark catheter to decompress her system and intraoperative findings of pyonephrosis, who clinically improved and was discharged 10/25/2022 on Levaquin, subsequently readmitted around 11/04/2022 with poor glycemic control, SIRS/suspected sepsis, and persistence of an abnormally enlarged and heterogeneously enhancing left renal unit despite absence of hydroureteronephrosis with the stent in place. On her initial admission, expressed concern about the appearance of the kidney and the lack of timely response to aggressive antimicrobial therapy. I recommended outpatient serial imaging to ensure resolution of the heterogeneous enlarged left renal unit, but the patient, who is uninsured and also failed to follow-up as an outpatient, never completed serial imaging and has thus been readmitted on 2 occasions. On this most recent admission, she completed her antimicrobial course with the Levaquin as prescribed, but no imaging was done to confirm resolution of the abnormal renal findings. On the prior admission, I also requested percutaneous left renal biopsy to rule out lymphoma in case the kidney failed to improve despite an adequate course of antimicrobial therapy. This was not done, and the patient is now readmitted with persistent heterogeneously enhancing renal unit, though mildly improved, with recurrent UTI, suspected pyelonephritis. The impression of the internists is that the stent/foreign body is the source of the recurrent infection. As a result, since the patient has been admitted now for at least 2 days on IV antimicrobials and her white count has declined back to normal with clinical improvement, I counseled the patient that I would be removing the stent. Of note, she had at least 2 prior outpatient appointment scheduled with my office that she canceled or no-show for because of either inability or lack of willingness to pay the fees associated with her prior consultation and/or outpatient visit. As a result, the stent was never removed as an outpatient as intended. Bedside cystoscopy and left ureteral stent extraction procedure note: The patient was supine in the hospital bed and then placed in the frog-leg position where his genitalia was prepped with Hibiclens and draped in standard fashion. A 16 Surinamese flexible cystoscope was used to traverse the urethra into the bladder with ease, and the left ureteral stent was emanating from the ureteral orifice. Using an alligator grasper, the stent coil was grasped and delivered from the meatus along with the entirety of the stent and both coils intact with ease. The patient tolerated the procedure well and without obvious complications. Recommendation: -If resolution of the heterogeneously enhancing left renal unit fails to occur this time despite aggressive culture specific antimicrobials given for a reasonable period of time, consideration must be given for nephrectomy. Prior to any surgical removal of the kidney, a biopsy of the kidney must be accomplished to rule out occult underlying pathologic process that may need to be treated in a different fashion. I recommend interventional radiology guided left renal biopsy prior to planned discharge. -Follow-up with me in the urology clinic in about 3 to 4 weeks time, preferably with preoperative repeat imaging either with ultrasound or CT with IV contrast.
[2022-11-27] MEDS: HYDROMORPHONE HCL 1 MG/ML INJ IV PRN ×4 (02:56→20:08)
[2022-11-27] MEDS: NA CHLORIDE 0.9% 1,000 ML IV SCH ×3 (04:00→22:15)
[2022-11-27 06:12] LABS: Absolute Lymphocytes (CBC) 1.5 K/uL (0.7-4.9); Hematocrit 22.1 % (36.0-45.0); Lymphocytes % 27.9 % (15.3-44.8); MCV 78.2 fL (80-100); MPV 8.6 fL (7.6-11.3); RBC Red Blood Cell Count 2.82 M/uL (3.86-4.86)
[2022-11-27 06:25] LABS: Potassium 4.3 mmol/L (3.5-5.1)
[2022-11-27] MEDS ORDERED: D50W 25 GM/50 ML SYRINGE IV PRN (06:57)
[2022-11-27] MEDS ORDERED: GLUCAGON 1 MG/VIAL IM PRN (06:57)
[2022-11-27] MEDS ORDERED: D10W 125 ML IV PRN (07:07)
[2022-11-27] MEDS: CEFTRIAXONE 1,000 MG in NA CHLORIDE 0.9% 50 ML IVPB SCH ×2 (08:52→20:09)
--- NOTE | 2022-11-27 09:00 | RAD REPORT ---
EXAM DESCRIPTION: CT - Abdomen Pelvis W Contrast - 11/27/2022 8:30 am CLINICAL HISTORY: Follow-up pyelonephritis COMPARISON: To 09/2023 TECHNIQUE: Biphasic, helical CT imaging of the abdomen and pelvis was performed following intravenou s administration of 95 mL Isovue-300. All CT scans are performed using dose optimization technique as appropriate and may include automated exposure control or mA/KV adjustment according to patient size. FINDINGS: No suspicious findings in the lung bases. The liver, spleen, and pancreas show no suspicious findings. Gallbladder and biliary tree are also wi thout suspicious finding. The left ureteral stent has been removed. Few locules of gas are seen in the bladder, likely related to recent intervention. The left kidney remains enlarged with heterogeneous enhancement pattern. Smal l triangular peripheral region of hypoenhancement near the superior pole is stable, and nonspecific. No subcapsular or perinephric fluid collections. Mild perinephric fat stranding. Mild urothelial enha ncement is now noted throughout the nondistended left. No dilated bowel loops or bowel wall thickening. No free air, free fluid or inflammatory stranding. N o hernia, mass or bulky lymphadenopathy. The urinary bladder is without significant finding. No suspicious bony findings. IMPRESSION: Interval removal of left ureteral stent. Persistent left renal enlargement with heterogeneous enhancement and mild adjacent inflammatory nolan es suggestive of pyelonephritis. No subcapsular or other perinephric fluid collections. Nonspecific mild urothelial enhancement now noted along the left ureter, favored to be reactive, rela emerson to recent intervention. No other acute intra-abdominal process.
[2022-11-27] MEDS: INSULIN -REGULAR HUMAN 50 UNIT/0.5 ML ML SQ SCH ×4 (09:10→22:25)
--- NOTE | 2022-11-27 09:27 | P.CNS ---
Date of Consult: 11/27/22 Chief Complaint: Recurrent urinary tract infection History of Present Illness: patient is a 41-year-old female who was recently in the hospital for pyelonephritis and had a J-stent placed in early October. She is scheduled to be seen at Urology office on Friday to have this possibly removed. She has had recurring infections and she has been having some pain for the last few days. She came to the hospital for further evaluation. In the emergency room she was found to have leukocytosis as well as a urinary tract infection once again. She does require a lot of pain medication and when she was in the hospital she did require intravenous pain meds up until the time of discharge. At this time, E emergency room PA has spoken with Urology and they wanted admitted to our hospital for antibiotic therapy. Until the foreign body is removed I think she will have recurring urinary tract infections. Plan of care would be to continue with IV antibiotics and as long as she is improving hopefully discharge over the next 48-72 hours so that she can follow up on Friday to have the stent removed. ID has been consulted for IV antibiotics recommendations and management for Gram Negative Sanchez E. 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 and lives at home with her family - Family History Mother Medical History: Hypertension Father Medical History: Hypertension, Diabetes Sister Medical History: Diabetes - Social History Alcohol use: Yes CD- Drugs: No Caffeine use: No Place of Residence: Home Physical Examination Temp Pulse Resp BP Pulse Ox 98.3 F 88 14 150/75 H 100 11/27/22 08:00 11/27/22 08:00 11/27/22 08:00 11/27/22 08:00 11/27/22 08:00 General: Alert, In no apparent distress, Oriented x3 Neck: Supple Respiratory: Clear to auscultation bilaterally Cardiovascular: No edema, Normal S1 S2 Gastrointestinal: Normal bowel sounds Musculoskeletal: No swelling, No tenderness Integumentary: No rashes, No breakdown Neurological: Normal speech, Normal tone, Normal affect Urinary: Other (left flank tenderness) Active mediations Acetaminophen (Acetaminophen 500 Mg Tab) 500 mg PO Q6H PRN PRN Reason: Pain scale 2-4 (Mild)/Fever Last Admin: 11/25/22 12:36 Dose: 500 mg Hydrocodone Bitart/Acetaminophen (Hydrocodone/Apap 7.5/325 Mg Tab) 1 tab PO Q6H PRN PRN Reason: Pain scale 5-7 (Moderate) Last Admin: 11/26/22 21:09 Dose: 1 tab Glucagon (Glucagon 1 Mg/Vial) 1 mg IM 1X PRN; Protocol PRN Reason: HYPOGLYCEMIA Hydromorphone HCl (Hydromorphone Hcl 1 Mg/Ml Inj) 1 mg IV Q4H PRN PRN Reason: Pain scale 8-10 (Severe) Last Admin: 11/27/22 08:52 Dose: 1 mg Sodium Chloride (Ns 1000 Ml Ivbag) 1,000 mls @ 100 mls/hr IV .Q10H ADENIKE Last Admin: 11/27/22 04:00 Dose: Not Given Ceftriaxone Sodium 1,000 mg/ (Sodium Chloride) 50 mls @ 100 mls/hr IVPB Q12HR ADENIKE; Protocol Last Admin: 11/27/22 08:52 Dose: 50 mls Dextrose (Dextrose 10% Water Iv Soln.) 125 mls @ 0 mls/hr IV PRN PRN; Protocol PRN Reason: HYPOGLYCEMIA Insulin Human Regular (Insulin -Regular Human 50 Unit/0.5 Ml Ml) 0 unit SQ ACHS ADENIKE; Protocol Last Admin: 11/27/22 09:10 Dose: 2 unit Melatonin (Melatonin 5 Mg Tablet) 10 mg PO BEDTIME PRN PRN PRN Reason: INSOMNIA Last Admin: 11/25/22 21:33 Dose: 10 mg Ondansetron HCl (Ondansetron 4 Mg/2 Ml Vial) 4 mg IV Q8H PRN PRN Reason: NAUSEA / VOMITING Last Admin: 11/26/22 21:09 Dose: 4 mg Sodium Chloride (Flush Normal Saline 10 Ml) 10 ml IV BID ADENIKE Last Admin: 11/26/22 21:10 Dose: 10 ml Microbiology 11/24/22 11:01 Clean Catch Urine [place] Count - Final >100,000 CFU/ML. 11/24/22 11:01 Clean Catch Urine - Final Escherichia Coli Gram Neg Sanchez 11/24/22 10:20 Blood - Blood Aerobic Blood Culture - Preliminary No growth in 24 hours. 11/24/22 10:20 Blood - Blood Anaerobic Blood Culture - Preliminary No growth in 24 hours. 11/24/22 10:05 Blood - Blood Aerobic Blood Culture - Preliminary No growth in 24 hours. 11/24/22 10:05 Blood - Blood Anaerobic Blood Culture - Preliminary No growth in 24 hours. Imagings Data: CT - Abdomen Pelvis W Contrast - 11/27/2022 FINDINGS: No suspicious findings in the lung bases. The liver, spleen, and pancreas show no suspicious findings. Gallbladder and biliary tree are also without suspicious finding. The left ureteral stent has been removed. Few locules of gas are seen in the bladder, likely related to recent intervention. The left kidney remains enlarged with heterogeneous enhancement pattern. Small triangular peripheral region of hypoenhancement near the superior pole is stable, and nonspecific. No subcapsular or perinephric fluid collections. Mild perinephric fat stranding. Mild urothelial enhancement is now noted throughout the nondistended left. No dilated bowel loops or bowel wall thickening. No free air, free fluid or inflammatory stranding. No hernia, mass or bulky lymphadenopathy. The urinary bladder is without significant finding. No suspicious bony findings. IMPRESSION: Interval removal of left ureteral stent. Persistent left renal enlargement with heterogeneous enhancement and mild adjacent inflammatory changes suggestive of pyelonephritis. No subcapsular or other perinephric fluid collections. Nonspecific mild urothelial enhancement now noted along the left ureter, favored to be reactive, related to recent intervention. No other acute intra-abdominal process - Problems (1) UTI (urinary tract infection) Current Visit: Yes Status: Acute Plan: Cultures: 11/24 UC: GNR: E. Coli, susceptible to Ceftriaxone Antibiotics: On IV Ceftriaxone (11/24- ) Recommendations: Continue IV Ceftriaxone for total of 14 days (2) Acute pyelonephritis Current Visit: No Status: Acute Plan: Secondary to UTI Cultures: 11/24 UC: GNR: E. Coli, susceptible to Ceftriaxone Antibiotics: On IV Ceftriaxone (11/24- ) Recommendations: Continue IV Ceftriaxone for total of 14 days Per Nephrology, renal biopsy is recommended Conclusions/Impression: - UTI: E. Coli positive - Continue IV antibiotics - Presence of double-J stent - Acute pyelonephritis: Possible renal biopsy - DM type 2 (diabetes mellitus, type 2) - Hydronephrosis, left - Diabetes mellitus type 2 - Hyperlipidemia - HTN - UTI/pyonephritis-ESBL ID will monitor the patient closely for signs of infection with fever and WBC trends Case has been discussed with Emeterio Rodriguez Thank you Dr. Moulton for consultation
[2022-11-27] MEDS: ONDANSETRON 4 MG/2 ML VIAL IV PRN ×2 (14:20→22:15)
--- NOTE | 2022-11-27 16:35 | P.PN ---
Subjective Date of Service: 11/27/22 Chief Complaint: Recurrent urinary tract infection Ms. Tati White is Comoran-speaking only. The following history was obtained with the assistance of [employer] certified [place]an-Spanish oil and gas principal, Ms. Tamez, (ID# [id number]). No acute events overnight. She reports that her left flank pain is slightly worse this morning, grading it an 8-9/10 in severity. She denies any nausea/vomiting or diarrhea. Ureteral stent was removed yesterday per Urology. Repeat CT abdomen/pelvis pending. Appreciate Infectious Diseases recommendations. Review of Systems 10-point ROS is otherwise unremarkable Musculoskeletal: Back Pain (flank) Physical Examination - Vital Signs Temperature: 98.4 F Blood Pressure: 125/66 Pulse: 81 Respirations: 14 Pulse Ox (%): 98 Assessment And Plan - Plan General: Alert, Oriented x3, No distress HEENT: Atraumatic, Mucous membr. moist/pink, Sclerae nonicteric Neck: JVD not distended Respiratory: Clear to auscultation bilaterally, Normal air movement Cardiovascular: No edema, Regular rate and rhythm, Normal S1 S2, No gallops, No rubs, No murmurs Gastrointestinal: Soft, Non-distended, No rebound, No guarding, No tenderness Musculoskeletal: No clubbing, Other (left CVA tenderness) Integumentary: No rashes Neurological: Normal speech, Normal affect # Sepsis likely secondary to Acute Escherichia Coli Pyelonephritis s/p Ureteral Stent # Mild Left Hydronephrosis # History of ESBL Urinary Tract Infections She met criteria based on temperature > 100.9 F, HR > 90 bpm, WBC > 12,000, and the source is urinary. Severe sepsis is suspected due to concern for tissue hypoperfusion/organ dysfunction based on platelet count < 100,000 and lactic acid > 2 mmol/L. - Urology consulted and spoke with Dr. Durand - recommendations appreciated - Recommends serial imaging of kidney to monitor for abscess formation - Infectious Diseases consulted and spoke with Dr. Almanzar - recommendations appreciated - CT abdomen/pelvis = "the left kidney remains enlarged with heterogenous enhancement pattern and left double-J stent is in place. This likely likely indicates pyelonephritis. Elsewhere there is no new finding seen." - Repeat CT abdomen/pelvis pending - Sepsis order set was initiated - Lactate: 1.3 - Procalcitonin = 3.33 - Blood cultures drawn before antibiotics were given - Broad spectrum antibiotics started: Ceftriaxone - In regards to fluids: - 30 mL/kg of IV fluids was given based on patient's actual body weight # Hyperglycemia in Type II Diabetes Mellitus - Continue correction scale insulin # Hypertension - Hold home medications due to concern for sepsis Arnie Moulton M.D.
[2022-11-27] MEDS: MELATONIN 5 MG TABLET PO PRN (22:15)
[2022-11-28] MEDS: HYDROMORPHONE HCL 1 MG/ML INJ IV PRN ×4 (00:28→14:18)
[2022-11-28] MEDS: INSULIN -REGULAR HUMAN 50 UNIT/0.5 ML ML SQ SCH ×3 (07:30→16:30)
[2022-11-28] MEDS: NA CHLORIDE 0.9% 1,000 ML IV SCH ×3 (08:40→10:00)
[2022-11-28] MEDS: CEFTRIAXONE 1,000 MG in NA CHLORIDE 0.9% 50 ML IVPB SCH (08:41)
[2022-11-28] MEDS: ONDANSETRON 4 MG/2 ML VIAL IV PRN ×2 (08:41→17:18)
[2022-11-28] MEDS ORDERED: DOCUSATE NA 100 MG CAP PO SCH (09:00)
--- NOTE | 2022-11-28 09:41 | P.PN ---
Subjective Date of Service: 11/28/22 Chief Complaint: Recurrent urinary tract infection Patient lying in bed with no major event upon examination Physical Examination - Vital Signs Temperature: 99.7 F Blood Pressure: 123/82 Pulse: 78 Respirations: 14 Pulse Ox (%): 98 - Physical Exam General: Alert, In no apparent distress, Oriented x3 Neck: Supple Respiratory: Clear to auscultation bilaterally Cardiovascular: No edema, Normal S1 S2 Gastrointestinal: Normal bowel sounds Musculoskeletal: No swelling, No tenderness Integumentary: No rashes, No breakdown Neurological: Normal gait, Normal speech, Normal tone, Normal affect Urinary: Other (bilateral flank pain) - Studies active medications Acetaminophen (Acetaminophen 500 Mg Tab) 500 mg PO Q6H PRN PRN Reason: Pain scale 2-4 (Mild)/Fever Last Admin: 11/25/22 12:36 Dose: 500 mg Hydrocodone Bitart/Acetaminophen (Hydrocodone/Apap 7.5/325 Mg Tab) 1 tab PO Q6H PRN PRN Reason: Pain scale 5-7 (Moderate) Last Admin: 11/26/22 21:09 Dose: 1 tab Docusate Sodium (Docusate Na 100 Mg Cap) 100 mg PO BID [facility] Last Admin: 11/28/22 08:39 Dose: 100 mg Glucagon (Glucagon 1 Mg/Vial) 1 mg IM 1X PRN; Protocol PRN Reason: HYPOGLYCEMIA Hydromorphone HCl (Hydromorphone Hcl 1 Mg/Ml Inj) 1 mg IV Q4H PRN PRN Reason: Pain scale 8-10 (Severe) Last Admin: 11/28/22 08:41 Dose: 1 mg Sodium Chloride (Ns 1000 Ml Ivbag) 1,000 mls @ 100 mls/hr IV .Q10H [facility] Last Admin: 11/28/22 08:40 Dose: 1,000 mls Ceftriaxone Sodium 1,000 mg/ (Sodium Chloride) 50 mls @ 100 mls/hr IVPB Q12HR [facility]; Protocol Last Admin: 11/28/22 08:41 Dose: 50 mls Dextrose (Dextrose 10% Water Iv Soln.) 125 mls @ 0 mls/hr IV PRN PRN; Protocol PRN Reason: HYPOGLYCEMIA Insulin Human Regular (Insulin -Regular Human 50 Unit/0.5 Ml Ml) 0 unit SQ ACHS [facility]; Protocol Last Admin: 02/16/23 07:30 Dose: Not Given Melatonin (Melatonin 5 Mg Tablet) 10 mg PO BEDTIME PRN PRN PRN Reason: INSOMNIA Last Admin: 11/27/22 22:15 Dose: 10 mg Ondansetron HCl (Ondansetron 4 Mg/2 Ml Vial) 4 mg IV Q8H PRN PRN Reason: NAUSEA / VOMITING Last Admin: 11/28/22 08:41 Dose: 4 mg Sodium Chloride (Flush Normal Saline 10 Ml) 10 ml IV BID ADENIKE Last Admin: 11/28/22 08:48 Dose: Not Given Microbiology Data (last 24 hrs): Microbiology 11/24/22 11:01 Clean Catch Urine [place] Count - Final >100,000 CFU/ML. 11/24/22 11:01 Clean Catch Urine - Final Escherichia Coli Gram Neg Sanchez 11/24/22 10:20 Blood - Blood Aerobic Blood Culture - Preliminary No growth in 24 hours. 11/24/22 10:20 Blood - Blood Anaerobic Blood Culture - Preliminary No growth in 24 hours. 11/24/22 10:05 Blood - Blood Aerobic Blood Culture - Preliminary No growth in 24 hours. 11/24/22 10:05 Blood - Blood Anaerobic Blood Culture - Preliminary No growth in 24 hours. Assessment And Plan - Current Problems (Diagnosis) (1) UTI (urinary tract infection) Current Visit: Yes Status: Acute Plan: Cultures: 11/24 UC: GNR: E. Coli, susceptible to Ceftriaxone Antibiotics: On IV Ceftriaxone (11/24- ) Recommendations: Can discharge home with PO Ciprofloxacin for total of 30 days (pyelonephritis) (2) Acute pyelonephritis Current Visit: No Status: Acute Plan: Secondary to UTI Cultures: 11/24 UC: GNR: E. Coli, susceptible to Ceftriaxone Antibiotics: On IV Ceftriaxone (11/24- ) Recommendations: Can discharge home with PO Ciprofloxacin for total of 30 days Per Urology renal biopsy is recommended. Can d/c home with Ciprofloxacin 500 mg, Oral, BID for total of [address] on 12/09 and follow up with Urology for renal biopsy - Plan - UTI: E. Coli positive - Presence of double-J stent - Acute pyelonephritis: Possible renal biopsy. Can d/c home with PO antibiotics and repeat CT and f/u with urology for renal biopsy - DM type 2 (diabetes mellitus, type 2) - Hydronephrosis, left - Diabetes mellitus type 2 - Hyperlipidemia - HTN - UTI/pyonephritis-ESBL ID will monitor the patient closely for signs of infection with fever and WBC trends Case has been discussed with Dr. Almanzar, N
[2022-11-28 11:27] VITALS: O2SAT 95
--- NOTE | 2022-11-28 14:31 | P.DS ---
Admission Date: 11/24/22 Discharge Date: 11/28/22 Disposition: ROUTINE DISCHARGE Discharge Condition: GOOD Reason for Admission: Recurrent urinary tract infection Consultations: 1. Urology 2. Infectious Diseases Procedures: - 11/26/2022 - Cystoscopy and Left Ureteral Stent Extraction Hospital Course: DIAGNOSES: # Sepsis likely secondary to Acute Escherichia Coli Pyelonephritis s/p Ureteral Stent # Mild Left Hydronephrosis # History of ESBL Urinary Tract Infections # Hyperglycemia in Type II Diabetes Mellitus # Hypertension HOSPITAL COURSE: Ms. Valeria White is Icelandic-speaking only. The following communication was achieved with the assistance of [employer] certified Icelandic-Sinhala produce field merchandiser, Mr. Renan Warren, (ID# [id number]). Ms. Tati White is a 41 year old female with a past medical history significant for type 2 diabetes mellitus, hypertension, and recurrent ESBL urinary tract infections who was admitted to the [facility] on 11/24/2022 for left flank pain. She was admitted to the Medicine service. Upon further evaluation, she was found to have sepsis secondary to acute Escherechia Coli pyelonephritis. Her CT abdomen/pelvis revealed, "the left kidney remains enlarged with heterogenous enhancement pattern and left double-J stent is in place. This likely likely indicates pyelonephritis. Elsewhere there is no new finding seen." Urology was consulted and she was evaluated by Dr. Durand. On 11/26/2022, she underwent c ystoscopy and left ureteral stent extraction. She tolerated the procedure well and serial CT abdomen/pelvis revealed, "interval removal of left ureteral stent. Persistent left renal enlargement with heterogeneous enhancement and mild adjacent inflammatory changes suggestive of pyelonephritis. No subcapsular or other perinephric fluid collections. Nonspecific mild urothelial enhancement now noted along the left ureter, favored to be reactive, related to recent intervention. No other acute intra-abdominal process." Infectious Diseases was consulted and she was evaluated by Dr. Almanzar. He advised for a 28-day course of ciprofloxacin, which has been sent to her pharmacy. Per Dr. Durand, he recommends that she have a serial CT abdomen/pelvis on the day before her last dose of antibiotics (day 27 of 28). If this CT scan reveals that her kidney continues to appear inflamed, he will plan for an outpatient renal biopsy. He plans to schedule an appointment with her on the last week of her antibiotics to make this determination. Dr. Almanzar was in agreement this plan. She was counseled extensively on these recommendations and verbalized understanding. Charge nurse, Ani Cotton RN, also contacted her PCP office to inform them of these recommendations. On 11/28/2022, she was seen on rounds and deemed medically stable for discharge. She was discharged with instructions to schedule follow-up appointments with her PCP ([facility]) and Urology (Dr. Durand) as described above. She was provided prescriptions for ciprofloxacin. She was given the opportunity to ask questions and reported no further questions. Furthermore, all questions were answered to the best of my ability. A copy of this discharge summary will be sent to the above providers to facilitate continuity of care. Today, I personally spent 40 minutes on her case, of which greater than 50% of the time was spent in patient education, counseling, and coordination of care as described above. PHYSICAL EXAM: General: Alert, Oriented x3, No distress HEENT: Atraumatic, Mucous membr. moist/pink, Sclerae nonicteric Neck: JVD not distended Respiratory: Clear to auscultation bilaterally, Normal air movement Cardiovascular: No edema, Regular rate and rhythm, Normal S1 S2, No murmurs Gastrointestinal: Soft, Non-distended, No rebound, No guarding, No tenderness Musculoskeletal: No clubbing Integumentary: No rashes Neurological: Normal speech, Normal affect Vital Signs/Physical Exam: Temp Pulse Resp BP Pulse Ox 99.7 F 78 16 123/82 99 11/28/22 13:20 11/28/22 13:20 11/28/22 14:18 11/28/22 13:20 11/28/22 14:18 Laboratory Data at Discharge: WBC 5.20 K/uL (4.3-10.9) 11/27/22 05:45 Hgb 7.2 g/dL (12.0-15.0) L 11/27/22 05:45 Hct 22.1 % (36.0-45.0) L 11/27/22 05:45 Plt Count 293 K/uL (152-406) 11/27/22 05:45 PT 13.8 SECONDS (9.5-12.5) H 11/25/22 03:45 INR 1.25 11/25/22 03:45 APTT 33.4 SECONDS (24.3-36.9) 11/25/22 03:45 Sodium 135 mmol/L (136-145) L 11/27/22 05:45 Potassium 4.3 mmol/L (3.5-5.1) 11/27/22 05:45 BUN 6 mg/dL (7-18) L 11/27/22 05:45 Creatinine 0.76 mg/dL (0.55-1.02) 11/27/22 05:45 Glucose 185 mg/dL (74-106) H 11/27/22 05:45 Total Bilirubin 0.3 mg/dL (0.2-1.0) 11/25/22 03:45 AST 6 U/L (15-37) L 11/25/22 03:45 ALT < 10 U/L (13-56) L 11/25/22 03:45 Alkaline Phosphatase 106 U/L (45-117) 11/25/22 03:45 Lipase 168 U/L (73-393) 11/24/22 09:48 Home Medications: Ciprofloxacin HCl [Cipro] 500 mg PO BID 28 Days #56 tab 11/28/22 New Medications: Ciprofloxacin HCl [Cipro] 500 mg PO BID 28 Days #56 tab Physician Discharge Instructions: Please schedule a follow-up appointment with your PCP ([facility]) in 3-5 days. You have been prescribed 28 days of antibiotics, and it is very important that you do not miss a dose of this medication. On day 27 of 28 you will need to have a CT scanning of your abdomen to reevaluate your left kidney. The CT will be ordered by your primary care provider. Once the CT is done please schedule a Urology appointment with Dr. Durand on day 28 of your antibiotics. This is very important because if your kidney is not improving, there will need to be discussions regarding biopsy of the kidney. If you have any questions regarding your hospitalization, please call [phone]. Favor de hacer attila con brown doctor primario dentro de 3 a 5 valle. A usted le duobse recetado 28 valle de antibioticos y es muy importante que no falle ninguna dosis de la medicina. En el brenda 27 de 28 usted va a necesitar donald tomografia computarizada de brown abdomen para reevaluar brown rinon guillermina. La tomografia computarizada debe ser ordernada por brown doctor primario. Despues de ben estudio debe hacer attila con el urologo en el brenda 28 de jason antibioticos. [place] es muy importante porque si brown rinon no esta mejorando, tendra que tener donald discusion acerca de donald biopsia de brown rinon. Si tiene alguna pregunta sobre hospitalizacion, favor de hablar al [phone]. Followup: NONE,NONE [Primary Care Provider] - Roly Durand [ACTIVE - CAN ADMIT] - Time spent managing pt's care (in minutes): 40
[2022-11-28 16:58] VITALS: BP 131/72; TEMP 98.4
[2022-11-28] MEDS: HYDROCODONE/APAP 7.5/325 MG TAB PO PRN (17:18)
== END 2022-11-28 17:57 | disposition home or self-care (01) | DRG 698 ==
LOC: ER 09:26 → ERHOLD 15:22 → 2ND 17:09
PROVIDERS: ADMIT Hospitalist; ATTEND Internal Medicine
PROC: 0TP98DZ Removal of Intraluminal Device from Ureter, Via Natural or Artificial Opening Endoscopic (ICD-10-PCS; principal; 2022-11-26)
DX: T83.593A Infection and inflammatory reaction due to other urinary stents, initial encounter (principal); A41.51 Sepsis due to Escherichia coli [E. coli]; R65.20 Severe sepsis without septic shock; N13.6 Pyonephrosis; E11.65 Type 2 diabetes mellitus with hyperglycemia; I10 Essential (primary) hypertension; E78.5 Hyperlipidemia, unspecified; Z79.4 Long term (current) use of insulin; Z98.51 Tubal ligation status; Z20.822 Contact with and (suspected) exposure to COVID-19
CPT/HCPCS: 36415; 74177; 80048; 80053; 81003; 81015; 81025; 82947; 83605; 83690; 84145; 85025; 85610; 85730; 87040; 87077; 87086; 87088; 87186; 87811; 96361; 96365; 96375; 99285; J0692; J1170; J1815; J2270; J2405; J3475; J7030; J7120; Q9967

== ENCOUNTER 2022-12-15 15:40 | Emergency (ER) | payer SELFPAY ==
--- OUTSIDE RECORDS SUMMARY | 2022-12-15 15:43 | XMS REPORT | Continuity of Care Document ---
:1980 Author Organization [facility] t Address [address] [place] [address] [place] [id number] Care Team Providers Name Role Phone PCP, PATIENT DOES NOT HAVE A Primary Care Physician Unavaila DAY Cason Attending Clinician Unavailable Day Ortega Attending Clinician ANGELIC HOLDEN Attending Clinician Unavailable Angelic Holden DO Attending Clinician VICK PENALOZA Attending Clinician Unavailable Vick Frye Attending Clinician Sanchez TAYLOR Attending Clinician Unavailable aSnchez Jarquin Attending Clinician Doctor Unassigned, [place] Attending Clinician Unavailable DAY MARTINS Admitting Clinician Unavailable VICK PENALOZA Admitting Clinician Unavailable Payers Payer Name Policy Type Policy Number Effective Date Expiration Date S yao MEDICAID TOBY PENDING 2022 2022 PENDING 00:00:00 00:00:00 Problems Condition Condition Condition Status Onset Resolution Last Treating Co mments Source Name Details Category Date Date Treatment Clinician Date Encounter Encounter Disease Active Overview: Univers for for 05-17 Formattin ity of routine routine 00:00: g of this [place] gynecologi gynecologi 00 note Me ruth cervantes might be Branch examinatio examinatio different n n from the original. 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 Rubella Disease Active Univers immune immune 05-17 ity of 00:00: [place] 00 Medical [place] Dysmenorrh Dysmenorrh Disease Active U nivers ea ea 05-17 ity of 00:00: [place] 00 [facility] Allergies, Adverse Reactions, Alerts Allergy Allergy Status Severity Reaction(s) Onset Inactive Treating Comm ents Source Name Type Date Date Clinician NO KNOWN Drug Active [facility] ALLERGIE Class ity of S [facility] Social History Social Habit Start Date Stop Date Quantity Comments Source Exposure to 2022-11-19 2022-11-29 Not sure [facility]-CoV-2 00:00:00 17:27:00 [facility] (event) [place] Alcohol intake 2022-10-16 2022-10-16 Current [facility] 00:00:00 00:00:00 non-drinker of [facility] alcohol (finding) [place] Tobacco use and 2013-05-17 2013-05-17 Smokeless tobacco Un iversity of exposure 00:00:00 00:00:00 non-user [facility] Sex Assigned At [birth year] Universit y of 00:00:00 00:00:00 [facility] Smoking Status Start Date Stop Date Source Never smoked tobacco [facility] Medications Ordered Filled Start Stop Current Ordering Indication Dosage Frequency Signature Comments Components Source Medication Medication Date Date Medication? Clinician (SIG) Name Name acetaminoph 2022- No 1{tbl} 1 tablet, Univers en-codeine 11-30 Oral, ity of (TYLENOL 03:00: 03:02 ONCE, 1 [place] #3) 300-30 00 :00 dose, On Medic al mg tablet 1 Fri Branch tablet 11/29/22 at 2100, RHETT morpHINE (4 2022- No 2mg 2 mg, Slow Univers mg/mL) 11-30 IV Push, ity of injection 2 03:00: 03:01 [place] 1 [place] mg [place] :[place] dose, On Medical Fri Branch 11/29/22 at 2100, STAT insulin 2022- No 5.44U 5.44 Univers regular 11-3018 Units, ity of human 02:45: 01:52 Subcutaneo [place] (HUMULIN R) 00 :00 , ONCE, Med ical injection 1 dose, On Bran ch 5.44 Units 11/29/22 at 2045, Routine
Indicatio n for insulin: Hyperglyce collin NaCl 0.9% 2022- No 1000mL at 999 Uni vers (NS) bolus 11-30 mL/hr, ity of infusion 01:30: 01:44 1,000 mL, Ronald as 1,000 mL 00 :00 IV Medical Infusion, Branch ONCE, 1 dose, On 11/29/22 at 1930, STAT ondansetron 2022- No 4mg 4 mg, Slow Univers (ZOFRAN 11-30 IV Push, ity of (PF)) 00:15: 00:27 ONCE, 1 [place] injection 4 00 :00 dose, On Medi helen mg Fri Branch 11/29/22 at 1815, RHETT morpHINE (4 2022- No 4mg 4 mg, Slow Univers mg/mL) 11-30 IV Push, ity of injection 4 00:15: 00:37 [place] 1 [place] mg [place] :[place] dose, On Medical Fri Branch 11/29/22 at 1815, STAT proMETHazin Yes [id number] 12.5mg Take 1 Univers e 12.5 mg 2-17 tablet by ity o f tablet 00:00: mouth [place] 00 every 6 Medical (six) Branch hours as needed for N/V unresponsi ve to Ondansetro n or Nausea and Vomiting (N/V). acetaminoph 2022- Yes [id number] 1{tbl} Take 1 U nivers en-codeine 11-2925 tablet by ity of (TYLENOL-CO 00:00: 05:59 [place] DE[place] #3) 00 :00 every 4 Medical 300-30 mg (four) Branch tablet hours as needed for Pain (scale 7-10) for up to 7 days. Indication s: acute pain ibuprofen No 600mg 600 mg, Uni vers (IBU) 1- 01-05 Oral, ity of tablet 600 01:45: 01:38 ONCE, 1 [place] mg 00 :00 dose, On Medical 10/16/22 Branch at 1945, RHETT No known No No known Unive rs medications 1-04 medication it y of 19:24: s [place] 15 Medical Branch naproxen 2021- No 500mg 500 mg, Univ ers (NAPROSYN) 03-0120 Oral, ity of tablet 500 07:45: 06:52 ONCE, 1 [place] mg 00 :00 dose, On Medical Fri Branch 03/01/22 at 0245, Routine iopamidol 2021- No [id number] 120mL 120 mL, Univers (ISOVUE 03-01-20 Intravenou ity o f 370-500 mL) 06:45: 05:37 s, ONCE, 1 [place] injection 00 :00 dose, On Medica l 120 mL Fri Branch 03/01/22 at 0145, Routine ondansetron No 4mg 4 mg, Slow Univers (ZOFRAN 03-0120 IV Push, ity of (PF)) 04:45: 03:55 ONCE, 1 [place] injection 4 00 :00 dose, On Medi helen mg Radha Branch 02/28/22 at 2345, RHETT morpHINE (4 No 4mg 4 mg, Slow Univers mg/mL) 03-0120 IV Push, ity of injection 4 04:45: 03:56 ONCE[place] 1 [place] mg 00 :00 dose, On Medical Radha Branch 02/28/22 at 2345, STAT NaCl 0.9% 2021- No 1000mL at 999 Uni vers (NS) bolus 03-01 05-20 mL/hr, ity of infusion 04:45: 05:19 1,000 mL, [place] as 1,000 mL 00 :00 IV Medical Infusion, Branch ONCE, 1 dose, On Radha 02/28/22 at 2345, STAT No known No Univers medications 02-28 ity of 22:35: [place] 44 Medical Branch gabapentin 2021- No 300mg 300 mg, Un molina (NEURONTIN) 01-09 Oral, ity of capsule 300 03:45: 02:47 ONCE[place] 1 [place] mg 00 :[place] dose, On Medical Tue Branch 01/08/22 at 2245, RHETT gabapentin 2021- No [id number] 100mg Take 1 Univers 100 mg 01-08 0409 [id number] capsule by ity of capsule 00:00: 04:59 mouth 3 [place] 00 :00 (three) Medical times [place] daily for 10 days. No known No [facility] medications 05-17 ity of 11:32: [address] Immunizations Ordered Filled Immunization Date Status Comments [facility] e Immunization Name Name Rubella 2008-02-10 Completed University of 00:00:00 [facility] Rubella 2008-02-10 Completed University of 00:00:00 [facility] Rubella 2008-02-10 Completed University of 00:00:00 [facility] Rubella 2008-02-10 Completed University of 00:00:00 [facility] Rubella 2008-02-10 Completed University of 00:00:00 [facility] TD, NOS 2005-05-17 Completed University of 00:00:00 [facility] Td 2005-05-17 Completed University of 00:00:00 [facility] Td 2005-05-17 Completed University of 00:00:00 [facility] Td 2005-05-17 Completed University of 00:00:00 [facility] TD, NOS 2005-05-17 Completed University of 00:00:00 [facility] Vital Signs Vital Name Observation Time Observation Value Comments Source Systolic blood 2022-11-30 03:02:00 141 mm[Hg] Univer sity of pressure [facility] Diastolic blood 2022-11-30 03:02:00 67 mm[Hg] Unive rsity of pressure [facility] Heart rate 2022-11-30 03:02:00 78 /min [facility] Respiratory rate 2022-11-30 03:02:00 17 /min [facility] Oxygen saturation in 2022-11-30 03:02:00 100 /min [facility] Arterial blood by [facility] Pulse oximetry Branch Body temperature 2022-11-30 00:44:14 36.83 Josee [facility] Body height 2022-11-29 23:30:00 149.9 cm [facility] [place] [facility] Body weight 2022-11-29 23:30:00 54.432 kg [facility] [place] [facility] BMI 2022-11-29 23:30:00 24.24 kg/m2 [facility] [place] [facility] Systolic blood 2022-10-17 01:29:00 144 mm[Hg] Univer sity of pressure [place] [facility] Diastolic blood 2022-10-17 01:29:00 85 mm[Hg] Unive rsity of pressure [place] [facility] Heart rate 2022-10-17 01:29:00 116 /min [facility] [place] [facility] Body temperature 2022-10-17 01:29:00 38.5 Josee Univ ersity [facility] [place] [facility] Respiratory rate 2022-10-17 01:29:00 18 /min Univ ersity [facility] [place] [facility] Body height 2022-10-17 01:29:00 152.4 cm [facility] [place] [facility] Body weight 2022-10-17 01:29:00 57.153 kg [facility] [place] [facility] BMI 2022-10-17 01:29:00 24.61 kg/m2 [facility] [place] [facility] Oxygen saturation in 2022-10-17 01:29:00 100 /min University of Arterial blood by [facility] Pulse oximetry Branch Heart rate 2022-03-01 07:00:00 72 /min [facility] [place] [facility] Respiratory rate 2022-03-01 07:00:00 14 /min Univ ersity of [place] [facility] Oxygen saturation in 2022-03-01 07:00:00 98 /min University of Arterial blood by [facility] Pulse oximetry Branch Systolic blood 2022-03-01 07:00:00 136 mm[Hg] Univer sity of pressure [place] [facility] Diastolic blood 2022-03-01 07:00:00 83 mm[Hg] Unive rsity of pressure [place] [facility] Body temperature 2022-03-01 02:56:00 36.17 Josee Univ ers[facility] [place] [facility] Body height 2022-03-01 02:56:00 152.4 cm [facility] [place] [facility] Body weight 2022-03-01 02:56:00 54.432 kg [facility] [place] [facility] BMI 2022-03-01 02:56:00 23.44 kg/m2 [facility] Systolic blood 2022-01-09 03:23:00 142 mm[Hg] [facility] Diastolic blood 2022-01-09 03:23:00 77 mm[Hg] [facility] Heart rate 2022-01-09 03:23:00 65 /min [facility] Respiratory rate 2022-01-09 03:23:00 18 /min [facility] Oxygen saturation in 2022-01-09 03:23:00 99 /min [facility] Arterial blood by [facility] Pulse oximetry [place] Body temperature 2022-01-09 01:40:00 36.83 Josee [facility] Body height 2022-01-09 01:40:00 152.4 cm [facility] Body weight 2022-01-09 01:40:00 58.968 kg [facility] BMI 2022-01-09 01:40:00 25.39 kg/m2 [facility] Procedures Procedure Date / Time Performing Clinician Source Performed POCT GLUCOSE 2022-11-30 02:42:00 [facility] ([facility] POCT GLUCOSE 2022-11-30 01:40:00 [facility]shmi [facility] (AUTOMATED) [facility] CT ABDOMEN PELVIS WO 2022-11-30 01:30:00 Day Martins [facility] CONTRAST [facility] URINALYSIS 2022-11-29 23:53:00 Chau Mccartney [facility] BASIC METABOLIC PANEL 2022-11-29 23:45:00 Day Martins [facility] (NA, K, CL, CO2, Medical Branch GLUCOSE, BUN, CREATININE, CA) CBC WITH DIFF 2022-11-29 23:42:00 Chau Mccartney [facility] CONSENT/REFUSAL FOR 2022-11-29 23:25:06 Doctor Unassigned, No [facility] Name Medical Branch POCT TEST 2022-11-29 12:27:00 Day Martins [facility] RAPID INFLUENZA A/B 2022-10-17 01:33:00 Angelic Holden [facility] COVID-19 (ID NOW RAPID 2022-10-17 01:33:00 [facility] Branch CONSENT/REFUSAL FOR 2022-10-17 01:23:24 Doctor Unassigned, No Un iversity of [place] DIAGNOSIS AND TREATMENT Name Medical Branch US PELVIS COMPLETE WITH 2022-03-01 08:09:47 Vick Penaloza [facility] TRANSVAGINAL [facility] CT ABDOMEN PELVIS W 2022-03-01 05:39:15 Vick Penaloza [facility] CONTRAST [facility] POCT TEST 2022-03-01 03:59:00 Vick Penaloza [facility] LIPASE 2022-03-01 03:55:00 Ca [facility] COMP. METABOLIC PANEL 2022-03-01 03:55:00 Vick Penaloza [facility] ([id number]) Medical Branch CBC WITH DIFF 2022-03-01 03:55:00 Vick Penaloza [facility] URINALYSIS 2022-03-01 03:55:00 Ca [facility] NOTICE OF PRIVACY 2022-03-01 02:36:44 Doctor Unassigned, No [facility] Medical Branch CONSENT/REFUSAL FOR 2022-03-01 02:36:31 Doctor Unassigned, No Un iversity of [place] DIAGNOSIS AND TREATMENT Name Medical Branch NOTICE OF PRIVACY 2022-01-09 01:30:37 Doctor Unassigned, No [facility] Medical Branch CONSENT/REFUSAL FOR 2022-01-09 01:29:11 Doctor Unassigned, No Un i[facility]ity of [place] DIAGNOSIS AND TREATMENT Name Medical Branch Encounters Start End Encounter Admission Attending Care Care Encounter Source Date/Time Date/Time Type Type Clinicians Facility Department ID 2022-11-29 2022-11-29 Emergency X LAKSHMI, [facility] ERT [id number] Univers 17:30:00 21:14:00 DAY malcolm of [facility] 2022-11-29 2022-11-29 Emergency Lakshmi, TRAUMA [id number] Univers 17:30:00 21:14:00 [facility] [id number] it y [facility] 4[facility]2.7.2.686 [id number] [address] 2022-10-16 2022-10-16 Emergency [facility] [id number] Univers 19:38:00 20:23:00 ANGELIC ity [facility] 2022-10-16 2022-10-16 [facility] [id number] Univers 19:38:00 20:23:00 Angelic HENDERSON [id number] ity of [place] 4.2.7.2.686 [facility] [id number] [address] 2022-02-28 2022-03-01 Emergency [facility] [id number] Univers 21:58:00 03:33:00 VICK itlucie [facility] 2022-02-28 2022-03-01 Emergency Ca [facility] [id number] Univers 21:58:00 03:33:00 Vick HENDERSON [id number] i ty of [place] 4.2.7.2.686 [facility] [id number] [address] 2022-01-08 2022-01-08 Emergency X Sanchez TAYLOR [facility] ERT [id number] Univers 20:47:00 22:37:00 ity of [facility] 2022-01-08 2022-01-08 Emergency Sanchez Taylor [facility] [id number] Univers 20:47:00 22:37:00 Nicole HENDERSON [id number] i ty of [place] 4.2.7.2.686 [facility] [id number] [address] 2022-01-08 2022-01-08 Orders Doctor HAIDER [id number] Univers 00:00:00 00:00:00 Only Unassigned, TAISHA 350.1.13.10 ity of [place] [facility] 4.2.7.2.686 Ronald as [id number] [place] [address] Branch 2021-06-19 2021-06-19 Emergency X [facility] ERT [id number] Univers 14:48:00 14:48:00 [facility] Results Test Description Test Time Test Comments Results Result Comments Source POCT GLUCOSE (AUTOMATED) 2022-11-30 02:43:53 Test Item Value Reference Range Interpretation Comme nts POCT GLU (test code = 9404096788) 189 mg/dL 70-110 H Lab Interpretation (test code = 65727-3) Abnormal [facility] GLUCOSE (AUTOMATED)2022-11-30 01:42:08 Test Item Value Reference Range Interpretation Comments POCT GLU (test code = 5057012010) 199 mg/dL 70-110 H Lab Interpretation (test code = Abnormal 75227-1) [facility] [id number] 00:32:00 Test Item Value Reference Range Interpretation Comments POCT PREG (test code = 1605) Negative On board controls acceptable Yes with C Line (test code = 3574) POCT PREG LOT # (test code = LOT:[id number]) POCT PREG TEST DATE EXP: 2024-01-11 (test code = 3576) Lab Interpretation (test code Normal = 18747-3) [facility] (NA, K, CL, CO2, GLUCOSE, BUN, CREATININE, CA)2022-11-30 00:11:28 Test Item Value Reference Range Interpretation Comments NA (test code = 136 mmol/L 135-145 3606147914) K (test code = 4.7 mmol/L 3.5-5.0 9927666317) CL (test code = 100 mmol/L 98-108 7135419676) CO2 TOTAL (test code = 25 mmol/L 23-31 3009814845) AGAP (test code = 11 2-16 7850845246) BUN (test code = 15 mg/dL 7-23 8114438475) GLUCOSE (test code = 275 mg/dL 70-110 H 9452594927) CREATININE (test code = 0.76 mg/dL 0.50-1.04 4064412739) CALCIUM (test code = 9.0 mg/dL 8.6-10.6 1292566256) eGFR (test code = 83.1 mL/min/1.73m2 0658220248) RAFIQ (test code = RAFIQ) Association of Glomerular Filtration Rate (GFR) and Staging of Kidney Disease* + --+ --+ ------+| GFR (mL/min/1.73 m2) ?| With Kidney Damage ?| ?Without Kidney Damage+ --------+ --------+ +| ?>90 ?| ?Stage one ?| ? Normal ?+ ---+ ---+ -------+| ?60-89 ?| ?Stage two ?| ? Decreased GFR ? + --+ --+ ------+| ?30-59 ?| ?Stage three ?| ? Stage three ? + --+ --+ ------+| ?15-29 ?| ?Stage four ? | ? Stage four ?+ ---+ ---+ -------+| ?<15 (or dialysis) ? ?| ?Stage five ? | ? Stage five ?+ ---+ ---+ -------+ *Each stage assumes the associated GFR [...] or abnormalities in imaging tests). Lab Interpretation Abnormal (test code = 51574-9) [facility]. METABOLIC PANEL (95552)2022-03-01 04:28:28 Test Item Value Reference Range Interpretation Comments NA (test code = 134 mmol/L 135-145 L 8492616310) K (test code = 4.3 mmol/L 3.5-5.0 5250885951) CL (test code = 101 mmol/L 98-108 0963441629) CO2 TOTAL (test code = 23 mmol/L 23-31 1726326250) AGAP (test code = 2-16 5301762372) BUN (test code = 16 mg/dL 7-23 0633624104) GLUCOSE (test code = 340 mg/dL 70-110 H 7428116886) CREATININE (test code = 0.57 mg/dL 0.50-1.04 4560070462) TOTAL BILI (test code = 0.1 mg/dL 0.1-1.7 4888305033) CALCIUM (test code = 9.1 mg/dL 8.6-10.6 0019261430) T PROTEIN (test code = 7.4 g/dL 6.3-8.2 2660509598) ALBUMIN (test code = 4.2 g/dL 3.5-5.0 3150561793) ALK PHOS (test code = 111 U/L 34-122 5814743772) ALTv (test code = 11 U/L 5-35 1742-6) AST(SGOT) (test code = 21 U/L 13-40 0678985407) eGFR (test code = mL/min/1.73m2 0519087079) RAFIQ (test code = RAFIQ) Association of Glomerular Filtration Rate (GFR) and Staging of Kidney Disease* + --+ --+ ------+| GFR (mL/min/1.73 m2) ?| With Kidney Damage ?| ?Without Kidney Damage+ --------+ --------+ +| ?>90 ?| ?Stage one ?| ? Normal ?+ ---+ ---+ -------+| ?60-89 ?| ?Stage two ?| ? Decreased GFR ? + --+ --+ ------+| ?30-59 ?| ?Stage three ?| ? Stage three ? + --+ --+ ------+| ?15-29 ?| ?Stage four ? | ? Stage four ?+ ---+ ---+ -------+| ?<15 (or dialysis) ? ?| ?Stage five ? | ? Stage five ?+ ---+ ---+ -------+ *Each stage assumes the associated GFR [...] or abnormalities in imaging tests). Lab Interpretation Abnormal (test code = 28011-1) [facility]47 Test Item Value Reference Range Interpretation Comments LIPASE (test code = 8399839231) 115 U/L 0-220 Lab Interpretation (test code = Normal 52992-7) [facility] [id number] 04:24:27 Test Item Value Reference Range Interpretation Comments WBC (test code = See_Comment [Automated 6690-2) message] The sy stem which generated this [...] RDW-SD (test code = 40.7 fL 39.0-49.9 91425-9) RDW-CV (test code = 14.6 % 12.0-15.5 788-0) PLT (test code = See_Comment [Automated 777-3) message] The sy stem which generated this result transmitted reference range : 166 - 358 10*3/ ?L. The reference r dona was not used to interpret this result as normal/abnormal . MPV (test code = 13.4 fL 9.5-12.9 H 06576-0) IPF % (test code = 13.7 % 1.3-7.7 H Platelet count 1900085677) measured by fluorescence method. NRBC/100 WBC (test See_Comment [Automat ed code = 4934863819) message] The system which generated this result transmitted reference range : 0.0 - 10.0 /100 WBCs. The refer ence range was not u sed to interpret th is result as normal/abnormal . NRBC x10^3 (test code <0.01 See_Comment [Auto mated = 1082995024) message] The s ystem which generated this result transmitted reference range : 10*3/?L. The reference range was not used to interpret this result as normal/abnormal . GRAN MAT (NEUT) % 51.8 % (test code = 770-8) IMM GRAN % (test code 0.30 % = 2374429004) LYMPH % (test code = 34.1 % 736-9) MONO % (test code = 9.5 % 5905-5) EOS % (test code = 4.0 % 713-8) BASO % (test code = 0.3 % 706-2) GRAN MAT x10^3(ANC) 3.39 10*3/uL 1.88-7.09 (test code = 5673831457) IMM GRAN x10^3 (test <0.03 0.00-0.06 code = 9875859376) LYMPH x10^3 (test code 2.23 10*3/uL 1.32-3.29 = 731-0) MONO x10^3 (test code 0.62 10*3/uL 0.33-0.92 = 742-7) EOS x10^3 (test code = 0.26 10*3/uL 0.03-0.39 711-2) BASO x10^3 (test code <0.03 0.01-0.07 = 704-7) Lab Interpretation Abnormal (test code = 80434-3) [id number] 03:59:00 Test Item Value Reference Range Interpretation Comments POCT PREG (test code = 1605) negative On board controls acceptable with present C Line (test code = 3574) POCT PREG LOT # (test code = 3575) [id number] POCT PREG TEST DATE (test 08/12/2023 code = 3576) Lab Interpretation (test code = Normal 91573-5) [facility]"
[2022-12-15] MEDS ORDERED: MORPHINE 4 MG/ML SYR ONE (16:22)
[2022-12-15] MEDS ORDERED: ONDANSETRON 4 MG/2 ML VIAL ONE (16:22)
[2022-12-15] MEDS ORDERED: NA CHLORIDE 0.9% 1,000 ML ONE (16:23)
[2022-12-15 16:43] LABS: Absolute Lymphocytes (CBC) 2.1 K/uL (0.7-4.9); Hematocrit 28.1 % (36.0-45.0); Lymphocytes % 32.6 % (15.3-44.8); MCV 77.4 fL (80-100); MPV 8.1 fL (7.6-11.3); RBC Red Blood Cell Count 3.64 M/uL (3.86-4.86)
[2022-12-15 16:59] LABS: AST/SGOT 10 U/L (15-37); Albumin 3.2 g/dL (3.4-5.0); Alkaline Phosphatase 109 U/L (45-117); BUN Blood Urea Nitrogen 13 mg/dL (7-18); Bicarbonate 26 mmol/L (21-32); Bilirubin Total 0.3 mg/dL (0.2-1.0); Glomerular Filtration Rate 87 ml/min (=/>90); Glucose Level 211 mg/dL (74-106); Lipase 31 U/L (13-75); Sodium Level 135 mmol/L (136-145)
[2022-12-15 17:04] LABS: ALT/SGPT < 10 U/L (13-56)
--- NOTE | 2022-12-15 17:30 | RAD REPORT ---
EXAM DESCRIPTION: US - Abdomen Exam Limited - 12/15/2022 5:14 pm CLINICAL HISTORY: Abdominal pain. COMPARISON: October 2022 FINDINGS: The gallbladder wall is not thickened. A gallstone is not seen. The biliary tree is normal caliber. IMPRESSION: Unremarkable gallbladder ultrasound.
[2022-12-15] MEDS ORDERED: LIDOCAINE VISCOUS 2% SOLN 15 ML UDC ONE (18:07)
[2022-12-15] MEDS ORDERED: MAGNES/ALUMIN/SIMET 30ML UCUP ONE (18:07)
[2022-12-15 18:10] LABS: Urine Blood Negative (Negative); Urine Glucose Negative (Negative); Urine Protein Negative (Negative); Urine Specific Gravity 1.015 (1.005-1.030)
[2022-12-15 18:27] LABS: Renal Epithelial <5 /HPF (None Seen); Urine Bacteria <20 /HPF (<20); Urine Mucus Slight /HPF (None Seen); Urine RBC <5 /HPF (None Seen)
--- NOTE | 2022-12-15 18:35 | ER ---
Nurse's Notes [facility] Name: Tati Oliveros Age: 41 yrs Sex: Female : 1980 Arrival Date: 12/15/2022 Time: 15:42 Bed 17 Private MD: Diagnosis: Acute gastritis;UTI/ Urinary tract infection, site not specified;Constipation Presentation: 12/15 15:56 Chief complaint: Patient states: ABD pain with right flank pain that began three days vg1 ago, stated had stent removed from left kidney about three weeks ago. Last BM was three days and minimal urine output . Also states pressure in the back of head and right side of face. Coronavirus screen: Vaccine status: Patient reports being unvaccinated. Client denies travel out of the [place] in the last 14 days. Ebola Screen: Patient negative for fever greater than or equal to 101.5 degrees Fahrenheit, and additional compatible Ebola Virus Disease symptoms. Initial Sepsis Screen: Does the patient meet any 2 criteria? No. Patient's initial sepsis screen is negative. Does the patient have a suspected source of infection? No. Patient's initial sepsis screen is negative. Risk Assessment: Do you want to hurt yourself or someone else? Patient reports no desire to harm self or others. Onset of symptoms was December 12, 2022. 15:56 Method Of Arrival: Ambulatory vg1 15:56 Acuity: NICK 3 vg1 Triage Assessment: 16:01 Headache History: The patient has had previous headaches and this one is more severe vg1 than previous episodes. General: Appears in no apparent distress. comfortable, Behavior is calm, cooperative. Pain: Complains of pain in abdomen, right flank, head Pain currently is 8 out of 10 on a pain scale. Pain began 2-3 days ago. Also complains of nausea. Neuro: Level of Consciousness is awake, alert, obeys commands, Oriented to person, place, time, situation, Char House Supervisor are equal bilaterally Moves all extremities. Gait is steady, Speech is normal, Facial symmetry appears normal. Respiratory: Airway is patent Respiratory effort is even, unlabored. GI: Abdomen is flat, non-distended, Reports nausea. 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 - Social history:: Smoking status: Patient denies any tobacco usage or history of. Screenin:[address] [facility] ED Fall Risk Assessment (Adult) History of falling in the last 3 months, as6 including since admission No falls in past 3 months (0 pts) Confusion or Disorientation No (0 pts) Intoxicated or Sedated No (0 pts) Impaired Gait No (0 pts) Mobility Assist Device Used No (0 pt) Altered Elimination No (0 pt) Score/Fall Risk Level 0 - 2 = Low Risk Oriented to surroundings, Maintained a safe environment, Educated pt \T\ family on fall prevention, incl call for assistance when getting out of bed, Assessed \T\ reinforced patient's understanding of fall precautions, Hourly rounding (assess needs \T\ fall precautionary measures) done. Abuse screen: Denies threats or abuse. Nutritional screening: No deficits noted. Tuberculosis screening: No symptoms or risk factors identified. Assessment: 16:15 General: Appears in no apparent distress. uncomfortable, Behavior is calm, cooperative, kr3 appropriate for age. Vital Signs: 15:56 BP 133 / 87; Pulse 73; Resp 16; Temp 98.3(O); Pulse Ox 99% on R/A; Weight 56.7 kg; vg1 Height 4 ft. 11 in. (149.86 cm); Pain 8/10; 19:18 BP 138 / 82; Pulse 72; Resp 18; Pulse Ox 100% on R/A; as6 15:56 Body Mass Index 25.25 (56.70 kg, 149.86 cm) vg1 ED Course: 15:42 Patient arrived in ED. am2 15:45 Rosey Brower PA is PHCP. en 15:45 Jordan Doran MD is Attending Physician. en 16:01 Triage completed. vg1 16:01 Arm band placed on. vg1 16:05 Bed in low position. Call light in reach. Side rails up X 1. as6 16:14 Yenifer Bradshaw RN is Primary Nurse. kr3 16:30 Inserted saline lock: 22 gauge in left antecubital area, using aseptic technique. Blood kr3 collected. 18:12 Troponin High Sensitivity Sent. kr3 18:34 Ashish Cabrera MD is Referral Physician. en 19:19 No provider procedures requiring assistance completed. IV discontinued, intact, as6 bleeding controlled, No redness/swelling at site. Pressure dressing applied. Administered Medications: 16:50 Drug: NS 0.9% 1000 ml Route: IV; Rate: 1 bolus; Site: left antecubital; kr3 19:20 Follow up: Response: No adverse reaction; IV Status: Completed infusion; IV Intake: as6 1000ml 16:50 Drug: Zofran (Ondansetron) 4 mg Route: IVP; Site: left antecubital; kr3 19:20 Follow up: Response: No adverse reaction as6 16:50 Drug: morphine 4 mg Route: IVP; Infused Over: 4 mins; Site: left antecubital; kr3 19:20 Follow up: Response: No adverse reaction as6 18:06 Drug: GI Cocktail without - (Maalox Suspension 30 ml, Lidocaine Liquid 2 % 15 kr3 ml) Route: PO; 19:20 Follow up: Response: No adverse reaction as6 Medication: 19:19 VIS not applicable for this client. as6 Intake: 19:20 IV: 1000ml; Total: 1000ml. as6 Outcome: 18:35 Discharge ordered by . en 19:19 Discharged to home ambulatory. as6 19:19 Condition: stable 19:19 Discharge instructions given to patient, Instructed on discharge instructions, Demonstrated understanding of instructions, follow-up care, medications, Prescriptions given X 4. 19:21 Patient left the ED. as6 Signatures: Nancy Toscano am2 Pascale Myrick, RN RN vg1 Preston Romano, RN RN as6 Rosey Brower PA PA en Reid, Kelley RN RN kr3 Corrections: (The following items were deleted from the chart) 16:51 16:50 Inserted saline lock: 22 gauge in left antecubital area, using aseptic technique. kr3 Blood collected. kr3
--- NOTE | 2022-12-15 18:35 | EDPHYS ---
Physician Documentation [facility] Name: Tati Oliveros Age: 41 yrs Sex: Female : 1980 Arrival Date: 12/15/2022 Time: 15:42 Bed 17 Private MD: ED Physician Jordan Doran HPI: 12/15 16:05 This 41 yrs old Female presents to ER via Ambulatory with complaints of en Numbness Of Arm, Headache, Back Pain, Abdominal Pain. 16:05 2 [id number] female with history of hypertension, diabetes, kidney stones with en stents presents to ED with right upper quadrant pain radiating to the right flank and right shoulder is. She reports associated nausea without vomiting or diarrhea. Pain is intermittent and colicky in nature and worse with food. She denies dysuria, hematuria, urinary frequency or flank pain. Patient reports she has a right-sided headache. There is no numbness, tingling or paresthesias to the face or the right upper extremity.. 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 - Social history:: Smoking status: Patient denies any tobacco usage or history of. ROS: 16:05 Constitutional: Negative for fever, chills, and weight loss. en 16:05 Abdomen/GI: Positive for abdominal pain, nausea and vomiting. 16:05 : Negative for urinary symptoms, urinary frequency. 16:05 Neuro: Positive for headache. Exam: 16:05 Constitutional: This is a well developed, well nourished patient who is awake, alert, en and in no acute distress. Cardiovascular: Regular rate and rhythm with a normal S1 and S2. No gallops, murmurs, or rubs. Normal PMI, no JVD. No pulse deficits. Respiratory: Lungs have equal breath sounds bilaterally, clear to auscultation and percussion. No rales, rhonchi or wheezes noted. No increased work of breathing, no retractions or nasal flaring. Back: No spinal tenderness. No costovertebral tenderness. Full range of motion. 16:05 Abdomen/GI: Right upper quadrant tenderness to palpation with a positive [place] sign and guarding. Vital Signs: 15:56 BP 133 / 87; Pulse 73; Resp 16; Temp 98.3(O); Pulse Ox 99% on R/A; Weight 56.7 kg; vg1 Height 4 ft. 11 in. (149.86 cm); Pain 8/10; 19:18 BP 138 / 82; Pulse 72; Resp 18; Pulse Ox 100% on R/A; as6 15:56 Body Mass Index 25.25 (56.70 kg, 149.86 cm) vg1 MDM: 16:04 Patient medically screened. en 16:05 Differential diagnosis: Right upper quadrant pain concerning for cholelithiasis, en cholecystitis, hepatitis, pancreatitis, less likely cholangitis. Also in the differential is peptic ulcer disease, gastritis, colitis, bowel obstruction. Patient without flank pain or urinary symptoms so lower suspicion for pyelonephritis, urinary tract infection, ureterolithiasis. Data reviewed: vital signs, nurses notes, lab test result(s), radiologic studies, ultrasound. 17:36 ED course: Abdominal pain resolved after medication. Patient resting comfortably. Right en upper quadrant ultrasound negative for gallstones. LFTs within normal limits. 18:30 Data reviewed: EKG, Normal sinus rhythm at 70 bpm, normal axis, normal intervals, no en STEMI. Independent interpretation of the following test(s) in the Emergency Department monitor car operator: Normal sinus rhythm at 71 bpm.. Test considered but Not performed: CT: Patient without significant hematuria. Mild urinary tract infection. Anticipate discharge home. No need for CT imaging at this time. . ED course: Patient feels better after GI cocktail. Reviewed imaging and labs. Will DC home with Protonix, Bentyl, Zofran for gastritis. Omnicef for urinary tract infection and patient requesting medicine for constipation so we will add MiraLAX.. 12/15 16:05 Order name: CBC with Diff en 12/15 16:05 Order name: CMP en 12/15 16:05 Order name: Lipase en 12/15 16:05 Order name: Urine Microscopic Only en 12/15 16:05 Order name: US Abdomen Limited en 12/15 16:05 Order name: IV Saline Lock; Complete Time: 16:50 en 12/15 16:05 Order name: Labs collected and sent; Complete Time: 16:50 en 12/15 16:45 Order name: CBC with Automated Diff; Complete Time: 16:57 EDMS 12/15 17:05 Order name: Comprehensive Metabolic Panel; Complete Time: 17:35 EDMS 12/15 17:05 Order name: Lipase; Complete Time: 17:35 EDMS 12/15 17:30 Order name: US; Complete Time: 17:35 EDMS 12/15 17:47 Order name: EKG - Nurse/Tech; Complete Time: 18:12 en 12/15 17:47 Order name: Troponin High Sensitivity en 12/15 18:10 Order name: Urine Dipstick-Ancillary; Complete Time: 18:30 EDMS 12/15 18:28 Order name: Urine Microscopic Only; Complete Time: 18:30 EDMS 12/15 18:47 Order name: Troponin High Sensitivity EDMS Administered Medications: 16:50 Drug: NS 0.9% 1000 ml Route: IV; Rate: 1 bolus; Site: left antecubital; kr3 19:20 Follow up: Response: No adverse reaction; IV Status: Completed infusion; IV Intake: as6 1000ml 16:50 Drug: Zofran (Ondansetron) 4 mg Route: IVP; Site: left antecubital; kr3 19:20 Follow up: Response: No adverse reaction as6 16:50 Drug: morphine 4 mg Route: IVP; Infused Over: 4 mins; Site: left antecubital; kr3 19:20 Follow up: Response: No adverse reaction as6 18:06 Drug: GI Cocktail without - (Maalox Suspension 30 ml, Lidocaine Liquid 2 % 15 kr3 ml) Route: PO; 19:20 Follow up: Response: No adverse reaction as6 Disposition Summary: 12/15/22 18:35 Discharge Ordered Location: Home en Problem: new en Symptoms: have improved en Condition: Stable en Diagnosis - Acute gastritis en - UTI/ Urinary tract infection, site not specified en - Constipation en Followup: en - With: Ashish Cabrera MD - When: 2 - 3 days - Reason: Re-evaluation by your physician Discharge Instructions: - Discharge Summary Sheet en - Urinary Tract Infection, Adult en - Gastritis, Adult, [id number] en Forms: - Medication Reconciliation Form en - Thank You Letter en - Antibiotic Education en - Prescription Opioid Use en Prescriptions: - Cephalexin 500 mg Oral Capsule - take 1 capsule by ORAL route every 6 hours for 10 days; 40 capsule; Refills: 0, en Product Selection Permitted - Colace 100 mg Oral Tablet - take 1 tablet by ORAL route every 12 hours; 14 tablet; Refills: 0, Product en Selection Permitted - Pepcid 20 mg Oral Tablet - take 1 tablet by ORAL route every 12 hours for 30 days; 60 tablet; Refills: 0, en Product Selection Permitted - Zofran 4 mg Oral Tablet - take 1 tablet by ORAL route every 12 hours As needed; 20 tablet; Refills: 0, en Product Selection Permitted Signatures: Dispatcher [employer] Pascale Aquino RN RN vg1 Rosey Brower PA PA en Reid, Kelley, RN RN kr3 Preston Romano RN as6
[2022-12-15 20:30] VITALS: BP 130/87; TEMP 98.1; O2SAT 98
--- NOTE | 2022-12-16 16:38 | EKG ---
Test Date: 2022-12-15 Test Time: 18:13:36 Virtualization Architect: KRANTHI MEASUREMENT RESULTS: Intervals: Rate: 69 GA: 126 QRSD: 80 QT: 394 QTc: 422 [place]: P: 64 GA: 126 QRS: 44 T: 56 INTERPRETIVE STATEMENTS: Normal sinus rhythm Normal ECG Compared to ECG 10/20/2022 14:27:00 No significant changes Electronically Signed On 12-16-22 16:36:06 PLANNING DIVISION SUPERINTENDENT by Sawyer Velazquez
== END 2022-12-15 19:21 | disposition home or self-care (01) ==
LOC: ER 15:40
DX: N39.0 Urinary tract infection, site not specified (principal); K29.00 Acute gastritis without bleeding; K59.00 Constipation, unspecified
CPT/HCPCS: 36415; 76705; 80053; 81003; 81015; 83690; 84484; 85025; 87086; 87088; 93005; 96361; 96374; 96375; 99284; J2405; J7030

== ENCOUNTER 2023-06-28 17:49 | Inpatient (IN) | payer OTHER, SELFPAY ==
--- OUTSIDE RECORDS SUMMARY | 2023-06-28 17:53 | XMS REPORT | Continuity of Care Document ---
:1980 Author Organization [facility] t Address [address] [place] [address] [place] [id number] Care Team Providers Name Role Phone PCP, PATIENT DOES NOT HAVE A Primary Care Physician Unavaila DAY Cason Attending Clinician Unavailable Day Ortega Attending Clinician ANGELIC HOLDEN Attending Clinician Unavailable Angelic Holden DO Attending Clinician VICK PENALOZA Attending Clinician Unavailable Vick Frye Attending Clinician Sanchez TAYLOR Attending Clinician Unavailable Sanchez Jarquin Attending Clinician Doctor Unassigned, [place] Attending Clinician Unavailable DAY MARTINS Admitting Clinician [...] [place] gynecologi gynecologi 00 note Me ruth cervantes might be Branch examinatio examinatio different n n from the original. ICD10 Diagnosis Term Medical Cash Poster Utility Rubella Rubella Disease Active Univers immune immune 05-17 ity of 00:00: [place] 00 Medical Nabb Dysmenorrh Dysmenorrh Disease Active U nivers ea ea 05-17 ity of 00:00: [place] 00 [facility] Allergies, Adverse Reactions, Alerts Allergy Allergy Status Severity Reaction(s) Onset Inactive Treating Comm ents Source Name Type Date Date Clinician NO KNOWN Drug Active [facility] ALLERGIE Class ity of S [facility] Social History Social Habit Start Date Stop Date Quantity Comments Source Exposure to 2022-11-19 2022-11-29 Not sure [facility]-CoV-2 00:00:00 17:27:00 [facility] (event) Nabb Alcohol intake 2022-10-16 2022-10-16 Current [facility] 00:00:00 00:00:00 non-drinker of [facility] alcohol (finding) Nabb Tobacco use and 2013-05-17 2013-05-17 Smokeless tobacco Un iversity of exposure 00:00:00 00:00:00 non-user [facility] Sex Assigned At [birth year] Universit y of 00:00:00 00:00:00 [facility] Smoking Status Start Date Stop Date Source Never smoked tobacco [facility] Medications Ordered Filled Start Stop Current Ordering Indication Dosage Frequency Signature Comments Components Source Medication Medication Date Date Medication? Clinician (SIG) Name Name acetaminoph 2022- No 1{tbl} 1 tablet, Univers en-codeine 11-30 Oral, ity of (TYLENOL 03:00: 03:02 ONCE, 1 [place] #3) 300-30 00 :00 dose, On Medic [...] Units, ity of human 02:45: 01:52 Subcutaneo [place] (HUMULIN R) 00 :00 , ONCE, Med [...] Branch 11/29/22 at 1815, STAT proMETHazin Yes [id number] 12.5mg Take 1 Univers e 12.5 mg 2-17 tablet by ity o f tablet 00:00: mouth [place] 00 every 6 Medical (six) Branch hours as needed for N/V unresponsi ve to Ondansetro n or Nausea and Vomiting (N/V). acetaminoph 2022- No 4647 1{tbl} Take 1 U nivers en-codeine [...] 1-04 medication it y of 19:24: s [place] 15 Medical Branch naproxen 2021- No 500mg 500 mg, Univ ers (NAPROSYN) 03-0120 Oral, ity of tablet 500 07:45: 06:52 ONCE, 1 Ronald as mg 00 :00 dose, On Medical Fri Branch 03/01/22 at 0245, Routine iopamidol 2021- No [id number] 120mL 120 mL, Univers (ISOVUE 03-01-20 Intravenou [...] No Univers medications 02-28 ity of 22:35: [place] 44 Medical Branch gabapentin 2021- No 300mg 300 mg, Un molina (NEURONTIN) 01-09 Oral, ity of capsule 300 03:45: 02:47 [place]CE[place] 1 [place] mg 00 :[place] dose, On Medical Tue Branch 01/08/22 at 2245, RHETT gabapentin 2021- No [id number] 100mg Take 1 Univers 100 mg 01-08 0409 [id number] capsule by ity of capsule 00:00: 04:59 mouth 3 [place] 00 :00 (three) Medical times Nabb daily for 10 days. No known No [facility] medications 05-17 ity of 11:32: [address] Immunizations Ordered Filled Immunization Date Status Comments [facility] e Immunization Name Name Rubella 2008-02-10 Completed University of 00:00:00 [facility] Rubella 2008-02-10 Completed University of 00:00:00 [facility] Rubella 2008-02-10 Completed University of 00:00:00 [facility] Rubella 2008-02-10 Completed University of 00:00:00 [facility] Rubella 2008-02-10 Completed University of 00:00:00 [facility] TD, NOS 2005-05-17 Completed University of 00:00:00 [facility] Td 2005-05-17 Completed University of 00:00:00 [facility] Td 2005-05-17 Completed University of 00:00:00 [facility] Td 2005-05-17 Completed University of 00:00:00 [facility] TD, NOS 2005-05-17 Completed University of 00:00:00 [facility] Vital Signs Vital Name Observation Time Observation Value Comments Source Systolic blood 2022-11-30 03:02:00 141 mm[Hg] Univer sity of pressure [facility] Diastolic blood 2022-11-30 03:02:00 67 mm[Hg] Unive rsity of pressure [facility] Heart rate 2022-11-30 03:02:00 78 /min [facility] Respiratory rate 2022-11-30 03:02:00 17 /min [facility] Oxygen saturation in 2022-11-30 03:02:00 100 /min [facility] Arterial blood by [facility] Pulse oximetry Branch Body temperature 2022-11-30 00:44:14 36.83 Josee [facility] Body height 2022-11-29 23:30:00 149.9 cm [facility] ty [facility] [place] [facility] Body weight 2022-11-29 23:30:00 54.432 kg [facility]i ty [facility] [place] [facility] BMI 2022-11-29 23:30:00 24.24 kg/m2 [facility] [place] [facility] Systolic blood 2022-10-17 01:29:00 144 mm[Hg] Univer sity of pressure [place] [facility] Diastolic blood 2022-10-17 01:29:00 85 mm[Hg] Unive rsity of pressure [place] [facility] Heart rate 2022-10-17 01:29:00 116 /min [facility] ty [facility] [place] [facility] Body temperature 2022-10-17 01:29:00 38.5 Josee Univ ersity of [place] [facility] Respiratory rate 2022-10-17 01:29:00 18 /min Univ ersity of [place] [facility] Body height 2022-10-17 01:29:00 152.4 cm [facility] [place] [facility] Body weight 2022-10-17 01:29:00 57.153 kg [facility] [place] [facility] BMI 2022-10-17 01:29:00 24.61 kg/m2 [facility] ty [facility] [place] [facility] Oxygen saturation in 2022-10-17 01:29:00 100 /min University of Arterial blood by [facility] Pulse oximetry Branch Heart rate 2022-03-01 07:00:00 72 /min [facility] [place] [facility] Respiratory rate 2022-03-01 07:00:00 14 /min Univ ersity of [place] [facility] Oxygen saturation in 2022-03-01 07:00:00 98 /min University of Arterial blood by [facility] Pulse oximetry Branch Systolic blood 2022-03-01 07:00:00 136 mm[Hg] Univer sity of pressure [place] [facility] Diastolic blood 2022-03-01 07:00:00 83 mm[Hg] Unive rsity of pressure [place] [facility] Body temperature 2022-03-01 02:56:00 36.17 Josee Univ ersity of [place] [facility] Body height 2022-03-01 02:56:00 152.4 cm [facility] [place] [facility] Body weight 2022-03-01 02:56:00 54.432 kg [facility] [place] [facility] BMI 2022-03-01 02:56:00 23.44 kg/m2 [facility] Systolic blood 2022-01-09 03:23:00 142 mm[Hg] [facility] Diastolic blood 2022-01-09 03:23:00 77 mm[Hg] [facility] [place] [facility] Heart rate 2022-01-09 03:23:00 65 /min [facility] Respiratory rate 2022-01-09 03:23:00 18 /min [facility] Oxygen saturation in 2022-01-09 03:23:00 99 /min [facility] Arterial blood by [facility] Pulse oximetry Nabb Body temperature 2022-01-09 01:40:00 36.83 Josee [facility] Body height 2022-01-09 01:40:00 152.4 cm [facility] Body weight 2022-01-09 01:40:00 58.968 kg [facility] BMI 2022-01-09 01:40:00 25.39 kg/m2 [facility] Procedures Procedure Date / Time Performing Clinician Source Performed POCT GLUCOSE 2022-11-30 02:42:00 [facility] ([facility] POCT GLUCOSE 2022-11-30 01:40:00 [facility] ([facility] CT ABDOMEN PELVIS WO 2022-11-30 01:30:00 Day Martins [facility] CONTRAST [facility] URINALYSIS 2022-11-29 23:53:[address] [facility] BASIC METABOLIC PANEL 2022-11-29 23:45:00 Day Martins [facility] (NA, K, CL, CO2, Medical Branch GLUCOSE, BUN, CREATININE, CA) CBC WITH DIFF 2022-11-29 23:42:[address] [facility] CONSENT/REFUSAL FOR 2022-11-29 23:25:06 Doctor Unassigned, No Un [facility] DIAGNOSIS AND TREATMENT Name Medical Branch POCT TEST 2022-11-29 12:27:00 Day Martins [facility] RAPID INFLUENZA A/B 2022-10-17 01:33:00 Angelic Holden [facility] COVID-19 (ID NOW RAPID 2022-10-17 01:33:00 [facility] Branch CONSENT/REFUSAL FOR 2022-10-17 01:23:24 Doctor Unassigned, No Un [facility] [place] DIAGNOSIS AND TREATMENT Name Medical Branch US PELVIS COMPLETE WITH 2022-03-01 08:09:47 Vick Penaloza [facility] TRANSVAGINAL [facility] CT ABDOMEN PELVIS W 2022-03-01 05:39:15 Vick Penaloza [facility] CONTRAST [facility] POCT TEST 2022-03-01 03:59:00 Vick Penaloza [facility] LIPASE 2022-03-01 03:55:00 Ca [facility] COMP. METABOLIC PANEL 2022-03-01 03:55:00 Vick Penaloza [facility] ([id number]) Medical Branch CBC WITH DIFF 2022-03-01 03:55:00 Vick Penaloza [facility] URINALYSIS 2022-03-01 03:55:00 Ca [facility] NOTICE OF PRIVACY 2022-03-01 02:36:44 Doctor Unassigned, No [facility] Medical Branch CONSENT/REFUSAL FOR 2022-03-01 02:36:31 Doctor Unassigned, No Un [facility] [place] DIAGNOSIS AND TREATMENT Name Medical Branch NOTICE OF PRIVACY 2022-01-09 01:30:37 Doctor Unassigned, No [facility] Branch CONSENT/REFUSAL FOR 2022-01-09 01:29:11 Doctor Unassigned, No Un [facility] [place] DIAGNOSIS AND TREATMENT Name Medical Branch Encounters Start End Encounter Admission Attending Care Care Encounter Source Date/Time Date/Time Type Type Clinicians Facility Department ID 2022-11-29 2022-11-29 Emergency X LAKSHMI, [facility] ERT [id number] Univers 17:30:00 21:14:00 DAY malcolm of [facility] 2022-11-29 2022-11-29 Emergency Lakshmi, TRAUMA [id number] Univers 17:30:00 21:14:00 [facility] [id number] it y of [id number] [facility] [id number] [address] 2022-10-16 2022-10-16 Emergency [facility] [id number] Univers 19:38:00 20:23:00 ANGELIC ity [facility] 2022-10-16 2022-10-16 [facility] [id number] Univers 19:38:00 20:23:00 Angelic HENDERSON [id number] ity of [place] [id number] [facility] [id number] [address] 2022-02-28 2022-03-01 Emergency [facility] [id number] Univers 21:58:00 03:33:00 VICK itlucie [facility] 2022-02-28 2022-03-01 Emergency Ca [facility] [id number] Univers 21:58:00 03:33:00 Vick HENDERSON [id number] i ty of [place] [id number] [facility] [id number] [address] 2022-01-08 2022-01-08 Emergency X Sanchez TAYLOR [facility] ERT [id number] Univers 20:47:00 22:37:00 ity of [facility] 2022-01-08 2022-01-08 Emergency Sanchez Taylor [facility] [id number] Univers 20:47:00 22:37:00 Nicole HENDERSON [id number] i ty of [place] [id number] [facility] [id number] [address] 2022-01-08 2022-01-08 Orders Doctor HAIDER [id number] Univers 00:00:00 00:00:00 Only Unassigned, TAISHA [id number] ity of [place] [facility] 4.2.7.2.686 Ronald as [id number] [place] [address] Branch 2021-06-19 2021-06-19 Emergency X [facility] ERT [id number] Univers 14:48:00 14:48:00 [facility] Results Test Description Test Time Test Comments Results Result Comments Source POCT GLUCOSE (AUTOMATED) 2022-11-30 02:43:53 Test Item Value Reference Range Interpretation Comme nts POCT GLU (test code = 4291128894) 189 mg/dL 70-110 H Lab Interpretation (test code = 59024-8) Abnormal [facility] GLUCOSE (AUTOMATED)2022-11-30 01:42:08 Test Item Value Reference Range Interpretation Comments POCT GLU (test code = 5336862105) 199 mg/dL 70-110 H Lab Interpretation (test code = Abnormal 13664-9) [facility] [id number] 00:32:00 Test Item Value Reference Range Interpretation Comments POCT PREG (test code = 1605) Negative On board controls acceptable Yes with C Line (test code = 3574) POCT PREG LOT # (test code = LOT:[id number]) POCT PREG TEST DATE EXP: 2024-01-11 (test code = 3576) Lab Interpretation (test code Normal = 02527-6) [facility] (NA, K, CL, CO2, GLUCOSE, BUN, CREATININE, CA)2022-11-30 00:11:28 Test Item Value Reference Range Interpretation Comments NA (test code = 136 mmol/L 135-145 2628285939) K (test code = 4.7 mmol/L 3.5-5.0 7966388827) CL (test code = 100 mmol/L 98-108 4179471874) CO2 TOTAL (test code = 25 mmol/L 23-31 2642473803) AGAP (test code = 11 2-16 8411154933) BUN (test code = 15 mg/dL 7-23 4572074481) GLUCOSE (test code = 275 mg/dL 70-110 H 2817803750) CREATININE (test code = 0.76 mg/dL 0.50-1.04 7588088553) CALCIUM (test code = 9.0 mg/dL 8.6-10.6 6785182869) eGFR (test code = 83.1 mL/min/1.73m2 0293061552) RAFIQ (test code = RAFIQ) Association of [...] tests). Lab Interpretation Abnormal (test code = 25995-0) [facility]. METABOLIC PANEL (21376)2022-03-01 04:28:28 Test Item Value Reference Range Interpretation Comments NA (test code = 134 mmol/L 135-145 L 9062524705) K (test code = 4.3 mmol/L 3.5-5.0 8534151524) CL (test code = 101 mmol/L 98-108 8625615908) CO2 TOTAL (test code = 23 mmol/L 23-31 6416307329) AGAP (test code = 2-16 4513395772) BUN (test code = 16 mg/dL 7-23 4672779045) GLUCOSE (test code = 340 mg/dL 70-110 H 9193723001) CREATININE (test code = 0.57 mg/dL 0.50-1.04 4852537798) TOTAL BILI (test code = 0.1 mg/dL 0.1-1.8 6157074151) CALCIUM (test code = 9.1 mg/dL 8.6-10.6 9855840120) T PROTEIN (test code = 7.4 g/dL 6.3-8.2 2862761867) ALBUMIN (test code = 4.2 g/dL 3.5-5.0 3437284993) ALK PHOS (test code = 111 U/L 34-122 3852703898) ALTv (test code = 11 U/L 5-35 1742-6) AST(SGOT) (test code = 21 U/L 13-40 2656028535) eGFR (test code = mL/min/1.73m2 8499177318) RAFIQ (test code = RAFIQ) Association of [...] tests). Lab Interpretation Abnormal (test code = 07886-1) [facility] 04:[facility]47 Test Item Value Reference Range Interpretation Comments LIPASE (test code = 2568615018) 115 U/L 0-220 Lab Interpretation (test code = Normal 22953-1) [facility] WITH [id number] 04:24:27 Test Item Value Reference Range Interpretation [...] RDW-SD (test code = 40.7 fL 39.0-49.9 52421-0) RDW-CV (test code = 14.6 % 12.0-15.5 788-0) PLT (test code = See_Comment [Automated 777-3) message] The sy stem which generated this result transmitted reference range : 166 - 358 10*3/ ?L. The reference r dona was not used to interpret this result as normal/abnormal . MPV (test code = 13.4 fL 9.5-12.9 H 42951-0) IPF % (test code = 13.7 % 1.3-7.7 H Platelet count 3207346347) measured by fluorescence method. NRBC/100 WBC (test See_Comment [Automat ed code = 3830261651) message] The system which generated this result transmitted reference range : 0.0 - 10.0 /100 WBCs. The refer ence range was not u sed to interpret th is result as normal/abnormal . NRBC x10^3 (test code <0.01 See_Comment [Auto mated = 4055449563) message] The s ystem which generated this result transmitted reference range : 10*3/?L. The reference range was not used to interpret this result as normal/abnormal . GRAN MAT (NEUT) % 51.8 % (test code = 770-8) IMM GRAN % (test code 0.30 % = 4987099853) LYMPH % (test code = 34.1 % 736-9) MONO % (test code = 9.5 % 5905-5) EOS % (test code = 4.0 % 713-8) BASO % (test code = 0.3 % 706-2) GRAN MAT x10^3(ANC) 3.39 10*3/uL 1.88-7.09 (test code = 9877586998) IMM GRAN x10^3 (test <0.03 0.00-0.06 code = 8903025432) LYMPH x10^3 (test code 2.23 10*3/uL 1.32-3.29 = 731-0) MONO x10^3 (test code 0.62 10*3/uL 0.33-0.92 = 742-7) EOS x10^3 (test code = 0.26 10*3/uL 0.03-0.39 711-2) BASO x10^3 (test code <0.03 0.01-0.07 = 704-7) Lab Interpretation Abnormal (test code = 79288-3) [id number] 03:59:00 Test Item Value Reference Range Interpretation Comments POCT PREG (test code = 1605) negative On board controls acceptable with present C Line (test code = 3574) POCT PREG LOT # (test code = 3575) [id number] POCT PREG TEST DATE (test 08/12/2023 code = 3576) Lab Interpretation (test code = Normal 95821-0) [facility]"
[2023-06-28 18:15] LABS: Hematocrit 37.2 % (36.0-45.0); Lymphocytes % 19.2 % (15.3-44.8); MCV 80.3 fL (80-100); MPV 10.4 fL (7.6-11.3); Platelets 243 thou/uL (152-406); RBC Red Blood Cell Count 4.63 M/uL (3.86-4.86)
[2023-06-28 18:16] LABS: Specific Gravity > 1.030 (1.005-1.030); Urine Bilirubin NEGATIVE (Negative); Urine Blood Negative (Negative); Urine Clarity Clear (Clear); Urine Color Colorless (Yellow); Urine Glucose 4+ (Over) (Negative); Urine Protein NEGATIVE (Negative); Urine Urobilinogen Normal (Normal); Urine pH 5.5 (5.0-7.0)
[2023-06-28] MEDS ORDERED: MORPHINE 4 MG/ML SYR ONE ×2 (18:20→19:41)
[2023-06-28] MEDS ORDERED: NA CHLORIDE 0.9% 1,000 ML ONE (18:21)
[2023-06-28] MEDS ORDERED: FAMOTIDINE 20 MG/2 ML VIAL IV ONE (18:21)
[2023-06-28 18:32] LABS: Albumin 3.8 g/dL (3.4-5.0); Bilirubin Total 0.3 mg/dL (0.2-1.0); Potassium 3.6 mEq/L (3.5-5.1); Protein, Total 8.8 g/dL (6.4-8.2)
--- NOTE | 2023-06-28 19:04 | RAD REPORT ---
EXAM DESCRIPTION: CT - Stone Protocol - 06/28/2023 6:49 pm CLINICAL HISTORY: Abdominal pain. Back pain. Flank pain COMPARISON: November 2022 TECHNIQUE: Computed axial tomography of the abdomen pelvis was obtained without oral or IV contrast. Lack of IV and oral contrast limits evaluation of solid organs, appendix, bowel, and vessels. Pink l reformatted images were obtained and reviewed. All CT scans are performed using dose optimization technique as appropriate and may include automated exposure control or mA/KV adjustment according to patient size. FINDINGS: Mild left hydronephrosis. Portions of the left ureter dilated. A left renal/ureteral calcu baylee is not seen. No right renal calculus Fatty liver. Left lobe is prominent Spleen, pancreas and adrenals appear grossly normal There is no evidence of diverticulitis. The appendix appears normal. No adnexal mass IMPRESSION: Mild left hydronephrosis with dilatation of portions of the left ureter. A left ureteral /UVJ calculus is not visualized
--- NOTE | 2023-06-28 19:23 | EDPHYS ---
Physician Documentation [facility] Name: Tati Oliveros Age: 42 yrs Sex: Female : 1980 Arrival Date: 06/28/2023 Time: 17:49 Bed 17 Private MD: ED Physician Hugo Fonseca HPI: 06/28 18:09 This 42 yrs old Female presents to ER via Ambulatory with complaints of Leg snw Pain, Back Pain, Abdominal Pain. 18:09 Pt having intermittent left lower back pain x 2 weeks, about 40 minutes ago, pt began snw having severe left back/flank and lower left abd pain. States pain down left anterior leg. Onset: The symptoms/episode began/occurred acutely. Severity of symptoms: At their worst the symptoms were moderate severe. The patient has experienced a previous episode. The patient has not recently seen a physician. Historical: - Allergies: 20:30 No Known Allergies; me1 - PMHx: 17:54 Diabetes - NIDDM; Hypertension; me1 - PSHx: 17:54 kidney stent; me1 - Immunization history:: Adult Immunizations up to date. - Social history:: Smoking status: Patient denies any tobacco usage or history of. Patient/guardian denies using alcohol. ROS: 18:06 Constitutional: Negative for fever, chills, and weight loss, Eyes: Negative for injury, snw pain, redness, and discharge, ENT: Negative for injury, pain, and discharge, Neck: Negative for injury, pain, and swelling, Cardiovascular: Negative for chest pain, palpitations, and edema. 18:06 : Negative for injury, bleeding, discharge, and swelling, MS/Extremity: Negative for injury and deformity, Skin: Negative for injury, rash, and discoloration, Neuro: Negative for headache, weakness, numbness, tingling, and seizure, Psych: Negative for depression, anxiety, suicide ideation, homicidal ideation, and hallucinations. 18:06 Respiratory: Positive for shortness of breath, on exertion. 18:06 Abdomen/GI: Positive for abdominal pain, abdominal cramps. 18:06 Back: Positive for pain at rest, pain with movement, flank pain, on the left. Exam: 18:06 Constitutional: This is a well developed, well nourished patient who is awake, alert, snw and appears to be in pain. Head/Face: Normocephalic, atraumatic. Eyes: Pupils equal round and reactive to light, extra-ocular motions intact. Lids and lashes normal. Conjunctiva and sclera are non-icteric and not injected. Cornea within normal limits. Periorbital areas with no swelling, redness, or edema. ENT: Nares patent. No nasal discharge, no septal abnormalities noted. Tympanic membranes are normal and external auditory canals are clear. Oropharynx with no redness, swelling, or masses, exudates, or evidence of obstruction, uvula midline. Mucous membranes moist. Neck: Trachea midline, no thyromegaly or masses palpated, and no cervical lymphadenopathy. Supple, full range of motion without nuchal rigidity, or vertebral point tenderness. No Meningismus. Chest/axilla: Normal chest wall appearance and motion. Nontender with no deformity. No lesions are appreciated. 18:06 Respiratory: Lungs have equal breath sounds bilaterally, clear to auscultation and percussion. No rales, rhonchi or wheezes noted. No increased work of breathing, no retractions or nasal flaring. 18:06 Skin: Warm, dry with normal turgor. Normal color with no rashes, no lesions, and no evidence of cellulitis. MS/ Extremity: Pulses equal, no cyanosis. Neurovascular intact. Full, normal range of motion. Neuro: Awake and alert, GCS 15, oriented to person, place, time, and situation. Cranial nerves II-XII grossly intact. Motor strength 5/5 in all extremities. Sensory grossly intact. Cerebellar exam normal. Normal gait. Psych: Awake, alert, with orientation to person, place and time. Behavior, mood, and affect are within normal limits. 18:06 Cardiovascular: Rate: tachycardic, Rhythm: regular, Pulses: no pulse deficits are appreciated. 18:06 Abdomen/GI: Inspection: abdomen appears normal, Bowel sounds: normal, Palpation: moderate abdominal tenderness, in the posterior aspect of left lateral abdomen and left lower quadrant. 18:06 Back: pain, that is moderate, that is severe, of the left mid back, vertebral tenderness, is not appreciated. Vital Signs: 18:01 BP 172 / 99; Pulse 110; Resp 18; Temp 98.3(O); Pulse Ox 99% on R/A; Weight 58.97 kg; ld1 Height 5 ft. 2 in. ; Pain 10/10; 18:30 BP 170 / 30; Pulse 85; Resp 20; Pulse Ox 100% on R/A; me1 19:14 BP 173 / 78; Pulse 81; Resp 20; Pulse Ox 100% on R/A; Pain 9/10; me1 20:27 BP 161 / 96; Pulse 76; Resp 20; Pulse Ox 100% on R/A; me1 18:01 Body Mass Index 23.78 (58.97 kg, 157.48 cm) ld1 18:01 Pain Scale: Adult ld1 19:14 Pain Scale: Adult me1 MDM: 17:53 Patient medically screened. snw 19:20 Differential Diagnosis sepsis, uti, kidney stone, pyelonephritis. Data reviewed: vital snw signs, nurses notes, lab test result(s), radiologic studies. Consideration of Admission/Observation Escalation of care including admission/observation considered. Management of patient was discussed with the following: Hospitalist: Gael Sy at 1921. Historians other than the Patient: Daughter/Son: Son. Counseling: I had a detailed discussion with the patient and/or guardian regarding the historical points, exam findings, and any diagnostic results supporting the discharge/admit diagnosis, lab results, radiology results, the need for further work-up and treatment in the hospital. 19:30 Response to treatment: There is no appreciated change of the patient's symptoms at this snw time, tachycardia improved. Pt still c/o pain. 19:30 Management of patient was discussed with the following: Hospitalist: Hospitalist snw requests holding antibiotics as urine does not look infected at this time. I have ordered lactate, urine, and blood cultures and a greenwood catheter however the blood has not been drawn yet. As pt is diabetic, has a history of hydroureteronephrosis, and pyelonephritis, I feel she should at least be observed to monitor. BP, Blood sugar, Creatinine, and pain levels.. I considered the following discharge prescriptions or medication management in the emergency department Medications were administered in the Emergency Department. See 18:04 Order name: CBC with Diff; Complete Time: 18:25 snw 06/28 18:04 Order name: CMP; Complete Time: 18:45 snw 06/28 18:04 Order name: Lipase; Complete Time: 18:45 snw 09/16 18:04 Order name: Test, Urine; Complete Time: 18:25 snw 06/28 18:04 Order name: Urinalysis w/ reflexes; Complete Time: 18:25 snw 06/28 19:15 Order name: Urine Culture: please obtain prior to abx snw 06/28 19:17 Order name: Blood Culture Adult (2): obtain prior to abx snw 06/28 19:17 Order name: Lactate w/ 2H reflex if indic. snw 06/28 19:41 Order name: Procalcitonin 06/28 19:41 Order name: CRP la06/28 19:41 Order name: UAM la1 06/28 18:04 Order name: Stone Protocol CT; Complete Time: 19:08 snw 06/28 18:04 Order name: IV Saline Lock; Complete Time: 18:04 snw 06/28 18:04 Order name: Labs collected and sent; Complete Time: 20:52 snw Administered Medications: 18:15 Drug: NS 0.9% IV 1000 ml Route: IV; Rate: 1 bolus; Site: right antecubital; me1 20:34 Follow up: IV Status: Completed infusion; IV Intake: 1000ml me1 18:15 Drug: morphine IVP or IV 4 mg Route: IVP; Infused Over: 4 mins; Site: right antecubital;me1 19:06 Follow up: Response: No adverse reaction me1 18:16 Drug: Famotidine IVP 20 mg Route: IVP; Site: right antecubital; me1 19:06 Follow up: Response: No adverse reaction me1 19:34 Drug: morphine IVP or IV 4 mg Route: IVP; Infused Over: 4 mins; Site: right antecubital;me1 20:14 Follow up: Response: No adverse reaction; Pain is decreased me1 19:36 CANCELLED (Physician Discretion): Cefepime IVPB 1 grams IVPB at 200 ml/hr once over 30 snw mins; (mix in NS 100 mL) Disposition Summary: 06/28/23 19:23 Hospitalization Ordered Hospitalization Status: Inpatient Admission snw Condition: Stable snw Problem: an acute exacerbation snw Symptoms: are unchanged snw Bed/Room Type: Standard snw Provider: Srikanth Garcia(06/28/23 19:43) la1 Location: Telemetry/MedSurg (observation)(06/28/23 19:50) snw Room Assignment: 214(06/28/23 20:12) cg Diagnosis - Intractable left flank pain snw - Diabetes mellitus due to underlying condition with hyperglycemia snw - Hydroureteronephrosis snw Forms: - Medication Reconciliation Form snw - SBAR form snw - Leadership Thank You Letter snw Signatures: Dispatcher [employer] EDMS Lilliam Hernandez, MYKEL-C STRAIGHTENING PRESS OPERATOR-Csnw Altaf Valente FNP-C STRAIGHTENING PRESS OPERATOR-Cla1 Abby Myrick, RN RN cg Danita Burnett, RN RN me1 Corrections: (The following items were deleted from the chart) 19:36 19:13 Cefepime IVPB 1 grams IVPB at 200 ml/hr once over 30 mins; (mix in NS 100 mL) snw ordered. snw 19:36 19:23 Pyelonephritis acute snw snw 19:43 19:23 Marcial Torrez snw la1 19:50 19:23 Telemetry/MedSurg (Inpatient) snw snw 19:50 19:23 snw snw 19:51 19:23 Hydroureter snw snw 20:12 19:50 snw cg 20:33 19:15 Greenwood ordered. snw me1
--- NOTE | 2023-06-28 19:23 | ER ---
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 ld1 Coronavirus screen: At this time, the client does not indicate any symptoms associated with coronavirus-19. Ebola Screen: No symptoms or risks identified at this time. Initial Sepsis Screen: Does the patient meet any 2 criteria? No. Patient's initial sepsis screen is negative. Does the patient have a suspected source of infection? No. Patient's initial sepsis screen is negative. Risk Assessment: Do you want to hurt yourself or someone else? Patient reports no desire to harm self or others. Onset of symptoms was June 28, 2023. 18:01 Method Of Arrival: Ambulatory ld1 18:01 Acuity: NICK 3 ld1 Triage Assessment: 18:02 General: Appears in no apparent distress. uncomfortable, Behavior is cooperative, ld1 anxious, crying. Pain: Complains of pain in back, abdomen and left leg Pain does not radiate. Pain at worst was 10 out of 10 on a pain scale. Quality of pain is described as throbbing, Pain began suddenly, Is continuous. EENT: No signs and/or symptoms were reported regarding the EENT system. Neuro: Level of Consciousness is awake, alert, obeys commands, Oriented to person, place, time, situation. Cardiovascular: Capillary refill < 3 seconds Patient's skin is warm and dry. Respiratory: Airway is patent Respiratory effort is even, unlabored. GI: Abdomen is round non-distended. : No signs and/or symptoms were reported regarding the genitourinary system. Derm: No signs and/or symptoms reported regarding the dermatologic system. Musculoskeletal: Range of motion: intact in all extremities, Reports pain in back. Historical: - Allergies: 20:30 No Known Allergies; me1 - PMHx: 17:54 Diabetes - NIDDM; Hypertension; me1 - PSHx: 17:54 kidney stent; me1 - Immunization history:: Adult Immunizations up to date. - Social history:: Smoking status: Patient denies any tobacco usage or history of. Patient/guardian denies using alcohol. Screenin:04 [facility] ED Fall Risk Assessment (Adult) History of falling in the last 3 months, me1 including since admission No falls in past 3 months (0 pts) Confusion or Disorientation No (0 pts) Intoxicated or Sedated No (0 pts) Impaired Gait No (0 pts) Mobility Assist Device Used No (0 pt) Altered Elimination No (0 pt) Score/Fall Risk Level 0 - 2 = Low Risk. Abuse screen: Denies threats or abuse. Nutritional screening: No deficits noted. Tuberculosis screening: No symptoms or risk factors identified. 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 Pain: Complains of pain in abdomen Pain radiates to left mid back Pain currently is 10 out of 10 on a pain scale. Quality of pain is described as sharp, shooting, Pain began suddenly, 30 min ago. Is continuous. Neuro: Level of Consciousness is awake, alert, obeys commands, Oriented to person, place, time, situation, Appropriate for age. Cardiovascular: Capillary refill < 3 seconds Patient's skin is warm and dry. Respiratory: Airway is patent Respiratory effort is even, unlabored, Respiratory pattern is regular, symmetrical. Vital Signs: 18:01 BP 172 / 99; Pulse 110; Resp 18; Temp 98.3(O); Pulse Ox 99% on R/A; Weight 58.97 kg; ld1 Height 5 ft. 2 in. ; Pain 10/10; 18:30 BP 170 / 30; Pulse 85; Resp 20; Pulse Ox 100% on R/A; me1 19:14 BP 173 / 78; Pulse 81; Resp 20; Pulse Ox 100% on R/A; Pain 9/10; me1 20:27 BP 161 / 96; Pulse 76; Resp 20; Pulse Ox 100% on R/A; me1 18:01 Body Mass Index 23.78 (58.97 kg, 157.48 cm) ld1 18:01 Pain Scale: Adult ld1 19:14 Pain Scale: Adult me1 ED Course: 17:50 Patient arrived in ED. im 17:51 Hugo Monroy PA is PHCP. cp 17:51 Hugo Fonseca MD is Attending Physician. cp 17:52 PHCP role handed off by Hugo Monroy PA snw 17:52 Lilliam Hernandez FNP-C is PHCP. snw 17:58 Danita Burnett, KADY is Primary Nurse. me1 18:02 Triage completed. ld1 18:02 Arm band placed on right wrist. ld1 18:04 Patient has correct armband on for positive identification. Placed in gown. Bed in low me1 position. Call light in reach. Side rails up X2. Provided Education on: POC. Verbalized understanding.. 18:04 Inserted saline lock: 20 gauge in right antecubital area, using aseptic technique. ld1 ,using aseptic technique. by Loreta HILLMAN Blood collected. 18:04 No provider procedures requiring assistance completed. me1 18:[address] In Process Unspecified. EDMS 19:22 Marcial Torrez MD is Hospitalizing Provider. snw 19:43 Srikanth Garcia MD is Hospitalizing Provider. la1 20:09 Lactate w/ 2H reflex if indic. Sent. me1 20:09 Blood Culture Adult (2): obtain prior to abx Sent. me1 20:13 CRP Sent. me1 20:13 Procalcitonin Sent. me1 20:33 Urine Culture: please obtain prior to abx Sent. me1 20:34 UAM Sent. me1 20:36 Patient admitted, IV remains in place. me1 20:50 Straight cath inserted, using sterile technique, 16 Fr. Specimen obtained. Returned wm Patient tolerated well. Administered Medications: 18:15 Drug: NS 0.9% IV 1000 ml Route: IV; Rate: 1 bolus; Site: right antecubital; me1 20:34 Follow up: IV Status: Completed infusion; IV Intake: 1000ml me1 18:15 Drug: morphine IVP or IV 4 mg Route: IVP; Infused Over: 4 mins; Site: right antecubital;me1 19:06 Follow up: Response: No adverse reaction me1 18:16 Drug: Famotidine IVP 20 mg Route: IVP; Site: right antecubital; me1 19:06 Follow up: Response: No adverse reaction me1 19:34 Drug: morphine IVP or IV 4 mg Route: IVP; Infused Over: 4 mins; Site: right antecubital;me1 20:14 Follow up: Response: No adverse reaction; Pain is decreased me1 19:36 CANCELLED (Physician Discretion): Cefepime IVPB 1 grams IVPB at 200 ml/hr once over 30 snw mins; (mix in NS 100 mL) Medication: 18:04 VIS not applicable for this client. me1 Intake: 20:34 IV: 1000ml; Total: 1000ml. me1 Outcome: 19:23 Decision to Hospitalize by Provider. snw 20:35 Admitted to Med/surg accompanied by tech, via wheelchair, room 412, with chart, Report me1 called to [facility] 20:35 Condition: stable 20:35 Instructed on the need for admit. 21:03 Patient left the ED. me1 Signatures: Dispatcher [employer] EDMS Lilliam Hernandez FNP-C TABLET MAKING MACHINE OPERATOR HELPER-Csnw Altaf Valente FNP-C TABLET MAKING MACHINE OPERATOR HELPER-ClaHugo Aguilera PA PA cp Sims, Lauren, RN RN ld1 Jennifer Hernandez Itzel im Eddleman, Michelle, RN RN me1 Corrections: (The following items were deleted from the chart) 19:08 19:06 BP 170 / 30; Pulse 85bpm; Resp 20bpm; Pulse Ox 100% RA; me1 me1
[2023-06-28] MEDS ORDERED: NA CHLORIDE 0.9% 0 ML ONE (19:28)
[2023-06-28] MEDS ORDERED: CEFEPIME 1 GM/VIAL ONE (19:29)
--- NOTE | 2023-06-28 20:15 | P.HP ---
Certification for Inpatient Patient admitted to: Observation With expected LOS: <2 Midnights Patient will require the following post-hospital care: None Practitioner: I am a practitioner with admitting privileges, knowledge of patient current condition, hospital course, and medical plan of care. Services: Services provided to patient in accordance with Admission requirements found in Title 42 Section 412.3 of the Code of Federal Regulations Patient History Date of Service: 06/28/23 Reason for admission: JOHN History of Present Illness: 42-year-old female with history of diabetes mellitus type 2, hypertension, multiple bouts of pyelonephritis, history of multidrug-resistant urinary tract infections with ESBL presents to the emergency department with left flank pain. She reports her left flank pain began about 5 days ago became worse a few hours before arrival to the emergency department. She reports it feels similar to episodes of pyelonephritis in the past. She was evaluated in the emergency department her labs are significant for white blood cell count 10.3 sodium 133 creatinine 1.35 GFR 50 glucose 299 UA not concerning for urinary tract infection at this time CT abdomen pelvis was performed without contrast which revealed mild left hydronephrosis with dilatation of portions of the left ureter. A left ureteral/UVJ calculus is not visualized. Patient has similar findings on previous CAT scans, previously had a stent in her left ureter. She is able to void without difficulty. At this time no source infection has been identified patient does have mild JOHN, ED provider wishes to admit under observation given her pain similar to previous episodes of pyelonephritis, concern for possible infectious process. No antibiotics given thus far, urine and blood cultures obtained as well as Pro-Claus/CRP. 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 moist/pink, EOMI, Sclerae nonicteric Neck: Supple, 2+ carotid pulse no bruit, No LAD, Without JVD or thyroid abnormality Respiratory: Clear to auscultation bilaterally, Normal air movement Cardiovascular: Regular rate/rhythm, Normal S1 S2 Gastrointestinal: Normal bowel sounds, Tenderness (mild left abd tendness/cva tenderness) Musculoskeletal: No tenderness Integumentary: No rashes Neurological: Normal speech, Normal strength at 5/5 x4 extr, Normal tone, Normal affect - Studies Laboratory Data (last 24 hrs) 06/28/23 06/28/23 18:04 18:04 WBC 10.30 Hgb 12.6 Hct 37.2 Plt Count 243 Sodium 133 L Potassium 3.6 BUN 18 Creatinine 1.35 H Glucose 299 H Total Bilirubin 0.3 AST 14 L ALT 20 Alkaline Phosphatase 110 Lipase 32 Assessment and Plan - Plan Assessment: JOHN Diabetes mellitus type [id number] hyperglycemia Left-sided abdominal tenderness/flank pain history of pyelonephritis with MDR UTIs Hypertension Plan: JOHN Continue gentle IV fluids overnight, recheck chemistry in the morning. Diabetes mellitus type [id number]-[id number] hyperglycemia ACHS Accu-Chek, sliding scale insulin. Left-sided abdominal tenderness/flank pain history of pyelonephritis with MDR UTIs Thus far patient is afebrile, white blood cell count high and normal, urinalysis not concerning for signs of infection, no clear CT findings of pyelonephritis although CT was without contrast. Patient does report pain is similar to previous episodes of pyelonephritis. She has had both MDR UTIs as well as pansensitive E. coli UTIs. No clear source of infection currently will hold off antibiotics. Pro-Claus and CRP ordered, blood and urine cultures obtained. Hypertension Continue home medications. DVT PPX: Lovenox full Code status: Discharge Plan: Home Plan to discharge in: 24 Hours - Advance Directives Does patient have a Living Will: No Does patient have a Durable POA for Healthcare: No - Code Status/Comfort Care Code Status Assessed: Yes (Full code) Critical Care: No Time Spent Managing Pts Care (In Minutes): 55
[2023-06-28 20:59] LABS: Specific Gravity 1.017 (1.005-1.030); Urine Bacteria None Seen /HPF (<20); Urine Bilirubin NEGATIVE (Negative); Urine Blood Negative (Negative); Urine Clarity Clear (Clear); Urine Color Colorless (Yellow); Urine Glucose 4+ (Over) (Negative); Urine Mucus Slight /HPF (None Seen); Urine Protein NEGATIVE (Negative); Urine RBC <5 /HPF (None Seen); Urine Urobilinogen Normal (Normal)
[2023-06-28] MEDS ORDERED: ONDANSETRON 4 MG/2 ML VIAL ONE (21:15)
[2023-06-28 21:25] VITALS: BMI 27.2
[2023-06-28] MEDS: NA CHLORIDE 0.9% 1,000 ML IV SCH (21:47)
[2023-06-28] MEDS: INSULIN -REGULAR HUMAN 50 UNIT/0.5 ML ML SQ SCH (22:38)
[2023-06-29] MEDS: MORPHINE 2 MG/ML SYR IV PRN ×2 (00:10→05:50)
[2023-06-29] MEDS ORDERED: HYDROCODONE/APAP 7.5/325 MG TAB PO ONE (00:59)
[2023-06-29 04:13] LABS: Absolute Lymphocytes (CBC) 1.5 K/uL (0.7-4.9); Hematocrit 31.1 % (36.0-45.0); Lymphocytes % 16.1 % (15.3-44.8); MCV 80.3 fL (80-100); MPV 10.7 fL (7.6-11.3); Platelets 185 thou/uL (152-406); RBC Red Blood Cell Count 3.87 M/uL (3.86-4.86)
[2023-06-29] MEDS: NA CHLORIDE 0.9% 1,000 ML IV SCH ×2 (05:50→16:21)
[2023-06-29] MEDS: INSULIN -REGULAR HUMAN 50 UNIT/0.5 ML ML SQ SCH ×4 (07:30→20:07)
[2023-06-29] MEDS: ENOXAPARIN 40 MG/0.4 ML SQ SCH (10:16)
[2023-06-29] MEDS ORDERED: Oxycodone HCl/Acetaminophen 1 TAB TAB PO PRN (10:18)
--- NOTE | 2023-06-29 10:22 | P.PN ---
Subjective Date of Service: 06/29/23 Chief Complaint: Left flank pain Patient has been complaining of severe left flank pain for the past 2 weeks and then started having pain in the left lower quadrant radiating to the left leg is a history of kidney stones abscesses seeing Dr. Gaitan Review of Systems Unremarkable Physical Examination - Vital Signs Temperature: 97.8 F Blood Pressure: 135/64 Pulse: 78 Respirations: 18 Pulse Ox (%): 98 - Physical Exam General: Alert, Oriented x3, Moderate distress Respiratory: Clear to auscultation bilaterally Cardiovascular: No edema, Regular rate/rhythm, Normal S1 S2 Gastrointestinal: Normal bowel sounds, Soft and benign, Non-distended, Tenderness (Tenderness in the left lower quadrant) Musculoskeletal: No clubbing, No swelling - Studies Laboratory Data (last 24 hrs) 06/28/23 06/28/23 18:04 18:04 WBC 10.30 Hgb 12.6 Hct 37.2 Plt Count 243 Sodium 133 L Potassium 3.6 BUN 18 Creatinine 1.35 H Glucose 299 H Total Bilirubin 0.3 AST 14 L ALT 20 Alkaline Phosphatase 110 Lipase 32 Assessment And Plan - Current Problems (Diagnosis) (1) Hydronephrosis, left Current Visit: No Status: Acute Plan: Patient is 42 years of age admitted with left flank pain now radiating to the left lower quadrant in the left leg had a problem with the kidney stones had a stents placed has abscesses were seen by Dr. Durand complains of intense pain right now CT scan shows IMPRESSION: Mild left hydronephrosis with dilatation of portions of the left ureter. A left ureteral/UVJ calculus is not visualized Plan to admit IV fluids pain relief consult Dr. Gaitan is no evidence of infection in the urine Labs reviewed mildly anemic crease morphine and add p.o. narcotics for pain relief
[2023-06-29] MEDS: MORPHINE 4 MG/ML SYR IV PRN ×2 (11:12→14:03)
[2023-06-29] MEDS: ONDANSETRON 4 MG/2 ML VIAL IV PRN ×2 (13:04→18:44)
[2023-06-29] MEDS: DIPHENHYDRAMINE 25 MG TAB/CAP PO PRN ×2 (16:20→20:09)
[2023-06-29] MEDS: HYDROMORPHONE HCL 2 MG/ML inj IV PRN ×2 (17:21→21:10)
[2023-06-29] MEDS: Dapagliflozin Propanediol [Farxiga] 10 MG Tablet PO SCH (20:08)
[2023-06-29] MEDS ORDERED: hydrOXYzine HCL 25 MG TAB PO ONE (21:18)
[2023-06-29] MEDS ORDERED: FAMOTIDINE 20 MG/2 ML VIAL IV ONE (21:19)
[2023-06-30] MEDS: NA CHLORIDE 0.9% 1,000 ML IV SCH (02:08)
[2023-06-30 03:26] LABS: Absolute Lymphocytes (CBC) 1.5 K/uL (0.7-4.9); Hematocrit 29.1 % (36.0-45.0); Lymphocytes % 17.5 % (15.3-44.8); MPV 10.4 fL (7.6-11.3); Platelets 193 thou/uL (152-406); RBC Red Blood Cell Count 3.55 M/uL (3.86-4.86)
[2023-06-30 03:44] LABS: Potassium 4.2 mEq/L (3.5-5.1)
[2023-06-30] MEDS: HYDROMORPHONE HCL 2 MG/ML inj IV PRN ×4 (05:03→19:44)
[2023-06-30] MEDS: DIPHENHYDRAMINE 25 MG TAB/CAP PO PRN ×3 (06:16→19:45)
[2023-06-30] MEDS: INSULIN -REGULAR HUMAN 50 UNIT/0.5 ML ML SQ SCH ×4 (07:30→19:45)
[2023-06-30] MEDS: Dapagliflozin Propanediol [Farxiga] 10 MG Tablet PO SCH ×2 (08:04→21:00)
[2023-06-30] MEDS: ENOXAPARIN 40 MG/0.4 ML SQ SCH (08:36)
--- NOTE | 2023-06-30 13:00 | P.PN ---
Subjective Date of Service: 06/30/23 Chief Complaint: Left flank pain Subjective: No new changes, Improving Physical Examination - Vital Signs Temperature: 97.1 F Blood Pressure: 145/71 Pulse: 84 Respirations: 17 Pulse Ox (%): 97 - Physical Exam General: Alert, Oriented x3 HEENT: Atraumatic, Normocephalic Neck: Supple Respiratory: Normal air movement Cardiovascular: Regular rate/rhythm, Normal S1 S2 Gastrointestinal: Soft and benign Musculoskeletal: No swelling Neurological: Normal speech, Normal strength at 5/5 x4 extr - Studies Laboratory Data (last 24 hrs) 06/30/23 06/30/23 02:23 02:23 WBC 8.70 Hgb 10.1 L Hct 29.1 L Plt Count 193 Sodium 133 L Potassium 4.2 BUN 10 Creatinine 0.99 Glucose 185 H Microbiology Data (last 24 hrs): 06/28/23 20:45 Clean Catch Urine [place] Count - Final <10,000 CFU/ML. 06/28/23 20:45 Clean Catch Urine - Final MIXED CARMELINA. Assessment And Plan - Plan Acute kidney injuryresolved. We will follow trend of kidney function avoid nephrotoxins. Suspected UTIgrowth was not significant. We will monitor closely. Left hydronephrosis: No significant issue. Creatinine is trended down. Urology to follow. Disposition: For possible discharge in a 24-hour.
[2023-06-30 23:12] VITALS: O2SAT 99
[2023-07-01] MEDS: HYDROMORPHONE HCL 2 MG/ML inj IV PRN ×2 (00:32→08:06)
[2023-07-01] MEDS: DIPHENHYDRAMINE 25 MG TAB/CAP PO PRN (04:01)
[2023-07-01 04:03] LABS: Absolute Lymphocytes (CBC) 1.9 K/uL (0.7-4.9); Hematocrit 31.8 % (36.0-45.0); Lymphocytes % 25.6 % (15.3-44.8); MCV 81.6 fL (80-100); MPV 10.6 fL (7.6-11.3); Platelets 213 thou/uL (152-406)
[2023-07-01 04:04] LABS: Potassium 3.7 mEq/L (3.5-5.1)
[2023-07-01] MEDS: INSULIN -REGULAR HUMAN 50 UNIT/0.5 ML ML SQ SCH (07:30)
[2023-07-01] MEDS: Dapagliflozin Propanediol [Farxiga] 10 MG Tablet PO SCH (07:57)
[2023-07-01] MEDS: ENOXAPARIN 40 MG/0.4 ML SQ SCH (08:07)
[2023-07-01 08:41] VITALS: BP 147/80; TEMP 97.7
--- NOTE | 2023-07-01 08:46 | P.DS ---
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 She reported her left flank pain began about 5 days prior became worse a few hours before arrival to the emergency department. She reported it feels similar to episodes of pyelonephritis in the past. She was evaluated in the emergency department her labs are significant for white blood cell count 10.3 sodium 133 creatinine 1.35 GFR 50 glucose 299 UA not concerning for urinary tract infection at this time CT abdomen pelvis was performed without contrast which revealed mild left hydronephrosis with dilatation of portions of the left ureter. A left ureteral/UVJ calculus is not visualized. Patient had similar findings on previous CAT scans, previously had a stent in her left ureter. She was voiding without difficulty. Patient was hospitalized for further management. Hospital Course: Patient was admitted to the medical floor for monitoring. She had JOHN which resolved with IV hydration. Urine analysis did not indicate the presence of UTI. Urine culture grew mixed rafael. Patient was later asymptomatic during the hospital stay. She tolerated diet and was ambulating. She was also afebrile with no leukocytosis. Patient is deemed stable for discharge. She is informed to follow-up with urology as outpatient. Vital Signs/Physical Exam: Temp Pulse Resp BP Pulse Ox 97.7 F 75 16 147/80 H 100 07/01/23 08:00 07/01/23 08:00 07/01/23 08:36 07/01/23 08:00 07/01/23 08:36 General: Alert, In no apparent distress, Oriented x3 HEENT: Mucous membr. moist/pink Neck: Supple, JVD not distended Respiratory: Clear to auscultation bilaterally, Normal air movement Cardiovascular: No edema, Regular rate/rhythm, Normal S1 S2 Gastrointestinal: Normal bowel sounds, Soft and benign, Non-distended, No tenderness Musculoskeletal: No swelling Integumentary: No rashes, No cyanosis Neurological: Normal strength at 5/5 x4 extr Laboratory Data at Discharge: WBC 7.30 thou/uL (4.3-10.9) 07/01/23 02:04 Hgb 10.9 g/dL (12.0-15.0) L 07/01/23 02:04 Hct 31.8 % (36.0-45.0) L 07/01/23 02:04 Plt Count 213 thou/uL (152-406) 07/01/23 02:04 Sodium 134 mEq/L (136-145) L 07/01/23 02:04 Potassium 3.7 mEq/L (3.5-5.1) 07/01/23 02:04 BUN 9 mg/dL (7-18) 07/01/23 02:04 Creatinine 0.91 mg/dL (0.55-1.02) 07/01/23 02:04 Glucose 173 mg/dL (74-106) H 07/01/23 02:04 Total Bilirubin 0.3 mg/dL (0.2-1.0) 06/28/23 18:04 AST 14 U/L (15-37) L 06/28/23 18:04 ALT 20 U/L (13-56) 06/28/23 18:04 Alkaline Phosphatase 110 U/L (45-117) 06/28/23 18:04 Lipase 32 U/L (13-75) 06/28/23 18:04 Home Medications: Dapagliflozin Propanediol [Farxiga] 10 mg PO BID 06/29/23 Ciprofloxacin HCl [Cipro] 500 mg PO BID #10 tab 07/01/23 New Medications: Ciprofloxacin HCl [Cipro] 500 mg PO BID #10 tab Time spent managing pt's care (in minutes): 32
[2023-07-01] MEDS ORDERED: POTASSIUM CL SA 10 MEQ TAB PO ONE (09:00)
== END 2023-07-01 12:24 | disposition home or self-care (01) | DRG 694 ==
LOC: ER 17:49 → 2ND 20:07 → OBSVTOIN 06-30 09:40
PROVIDERS: ADMIT Internal Medicine Sleep Medicine; ATTEND Internal Medicine
DX: N13.30 Unspecified hydronephrosis (principal); N17.9 Acute kidney failure, unspecified; I10 Essential (primary) hypertension; E11.65 Type 2 diabetes mellitus with hyperglycemia; D64.9 Anemia, unspecified; Z79.4 Long term (current) use of insulin; Z98.51 Tubal ligation status
CPT/HCPCS: 36415; 51702; 74176; 76377; 80048; 80053; 81001; 81003; 81025; 82947; 83605; 83690; 84145; 85025; 86140; 87040; 87086; 87088; 96361; 96374; 96375; 99285; G0378; J0692; J1170; J1650; J1815; J2270; J2405; J7030

== ENCOUNTER → 2023-11-15 | Emergency (ER) | payer OTHER ==
[~2023-11-15] MED LIST: CEFTRIAXONE 1000 MG/VIAL ONE; INSULIN REGULAR (HUMAN) 100 UNIT/ML ONE; KETOROLAC 30 MG/ML INJ ONE; MORPHINE 4 MG/ML SYR ONE; NA CHLORIDE 0.9% 1,000 ML ONE; ONDANSETRON 4 MG/2 ML VIAL ONE; WATER FOR INJ,STERILE 10 ML ONE
--- OUTSIDE RECORDS SUMMARY | 2023-11-15 21:19 | XMS REPORT | Continuity of Care Document ---
Author Name Unknown Address [address] [facility] [address] [place] [address] [facility] thconnect Address [address] [facility] [address] [place] [address] Care Team Providers Care Clinical Nurse Educator Name Role Phone PCP, PATIENT DOES NOT HAVE A Primary Care Physic sarwat Unavailable DAY CABEZAS Attending Clinician Unavailable Day Ortega Attending Clinician [phone] ANGELIC HOLDEN Attending Clinician Unavailab Angelic Handy DO Attending Clinician [phone] VICK PENALOZA Attending Clinician Unavailable Vick Frye Attending Clinician [phone] aSnchez TAYLOR Attending Clinician Unavailable Sanchez Jarquin Attending Clinician [phone] Doctor Unassigned, [place] Attending Clinician U sandraailDAY Bacon Admitting Clinician Unavailable VICK PENALOZA Admitting Clinician Unavailable Payers Payer Name Policy Type Policy Number Effective Date Expirati on Date Source MEDICAID ALIEN PENDING PENDING 2022 00:00:00 2022 00:00:00 Problems Condition Name Condition Details Condition Category Status Onset Date Resolution Date Last Treatment Date Treating Clinician Comments Source Encounter for routine gynecologi helen examinatio n Encounter for routine gynecologi helen examinatio n Disease Active 05-17 00:00: 00 Overview: Formattin g of this note might be different from the original. 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 [facility] Rubella immune Rubella immune Disease Active 05-17 00:00: 00 [facility] Dysmenorrh ea Dysmenorrh ea Disease Active 05-17 00:00: 00 [facility] Allergies, Adverse Reactions, Alerts Allergy Name Allergy Type Status Severity Reaction(s) Onset Date Inactive Date Treating Clinician Comments Source NO KNOWN ALLERGIE S Drug Class Active [facility] Social History Social Habit Start Date Stop Date Quantity Comments Source Exposure to SARS-CoV-2 (event) 2022-11-19 00:00:00 2022-11-29 17:27:00 Not sure [facility] Alcohol intake 2022-10-16 00:00:00 2022-10-16 00:00:00 Current non-drinker of alcohol (finding) [facility] Tobacco use and exposure 2013-05-17 00:00:00 2013-05-17 00:00:00 Smokeless tobacco non-user [facility] Sex Assigned At 1980 00:00:00 1980 00:00:00 [facility] Smoking Status Start Date Stop Date Source Never smoked tobacco [facility] Medications Ordered Medication Name Filled Medication Name Start Date Stop Date Current Medication? Ordering Clinician Indication Dosage Frequency Signature (SIG) Comments Components Source acetaminoph en-codeine (TYLENOL #3) 300-30 mg tablet 1 tablet 11-30 03:00: 00 11-30 03:02 :00 No 1{tbl} 1 tablet, Oral, ONCE, 1 dose, On Fri11/29/22 at 2100, RHETT [facility] morpHINE (4 mg/mL) injection 2 mg 11-30 03:00: 00 11-30 03:01 :00 No 2mg 2 mg, Slow IV Push, ONCE, 1 dose, On Fri11/29/22 at 2100, STAT [facility] insulin regular human (HUMULIN R) injection 5.44 Units 11-30 02:45: 00 11-30 01:52 :00 No 5.44U 5.44 Units, Subcutaneo us, ONCE, 1 dose, On Fri11/29/22 at 2045, Routine
Indicatio n for insulin: Hyperglyce collin [facility] NaCl 0.9% (NS) bolus infusion 1,000 mL 11-30 01:30: 00 11-30 01:44 :00 No 1000mL at 999 mL/hr, 1,000 mL, IV Infusion, ONCE, 1 dose, On Fri11/29/22 at 1930, STAT [facility] ondansetron (ZOFRAN (PF)) injection 4 mg 11-30 00:15: 00 11-30 00:27 :00 No 4mg 4 mg, Slow IV Push, ONCE, 1 dose, On Fri11/29/22 at 1815, RHETT [facility] morpHINE (4 mg/mL) injection 4 mg 11-30 00:15: 00 11-30 00:37 :00 No 4mg 4 mg, Slow IV Push, ONCE, 1 dose, On Fri11/29/22 at 1815, STAT [facility] proMETHazin e 12.5 mg tablet 11-29 00:00: 00 Yes [id number] 12.5mg Take 1 tablet by mouth every 6 (six) hours as needed for N/V unresponsi ve to Ondansetro n or Nausea and Vomiting (N/V). [facility] acetaminoph en-codeine (TYLENOL-CO DEINE #3) 300-30 mg tablet 11-29 00:00: 00 12-07 05:59 :00 No [id number] 1{tbl} Take 1 tablet by mouth every 4 (four) hours as needed for Pain (scale 7-10) for up to 7 days. Indication s: acute pain [facility] ibuprofen (IBU) tablet 600 mg 10-17 01:45: 00 10-17 01:38 :00 No 600mg 600 mg, Oral, ONCE, 1 dose, On Fri10/16/22 at 1945, RHETT [facility] No known medications 1- 19:24: 15 No No known medication s [facility] naproxen (NAPROSYN) tablet 500 mg 03-01 07:45: 00 03-01 06:52 :00 No 500mg 500 mg, Oral, ONCE, 1 dose, On Fri03/01/22 at 0245, Routine [facility] iopamidol (ISOVUE 370-500 mL) injection 120 mL 03-01 06:45: 00 03-01 05:37 :00 No [id number] 120mL 120 mL, Intravenou s, ONCE, 1 dose, On Fri03/01/22 at 0145, Routine [facility] ondansetron (ZOFRAN (PF)) injection 4 mg 03-01 04:45: 00 03-01 03:55 :00 No 4mg 4 mg, Slow IV Push, ONCE, 1 dose, On Radha 02/28/22 at 2345, RHETT [facility] morpHINE (4 mg/mL) injection 4 mg 03-01 04:45: 00 03-01 03:56 :00 No 4mg 4 mg, Slow IV Push, ONCE, 1 dose, On Fri02/28/22 at 2345, STAT [facility] NaCl 0.9% (NS) bolus infusion 1,000 mL 03-01 04:45: 00 03-01 05:19 :00 No 1000mL at 999 mL/hr, 1,000 mL, IV Infusion, ONCE, 1 dose, On Radha 02/28/22 at 2345, STAT [facility] No known medications 02-28 22:35: 44 No [facility] gabapentin (NEURONTIN) capsule 300 mg 30 03:45: 00 01-09 02:47 :00 No 300mg 300 mg, Oral, ONCE, 1 dose, On Fri01/08/22 at 2245, RHETT [facility] gabapentin 100 mg capsule 01-08 00:00: 00 01-19 04:59 :00 No [id number] 100mg Take 1 capsule by mouth 3 (three) times daily for 10 days. [facility] No known medications 05-17 11:32: 08 No [facility] Vital Signs Vital Name Observation Time Observation Value Comments S yao Systolic blood pressure 2022-11-30 03:02:00 141 mm[Hg] [facility] Diastolic blood pressure 2022-11-30 03:02:00 67 mm[Hg] [facility] Heart rate 2022-11-30 03:02:00 78 /min [facility] Respiratory rate 2022-11-30 03:02:00 17 /min [facility] Oxygen saturation in Arterial blood by Pulse oximetry 2022-11-30 03:02:00 100 /min [facility] Body temperature 2022-11-30 00:44:14 36.83 Josee [facility] Body height 2022-11-29 23:30:00 149.9 cm [facility] Body weight 2022-11-29 23:30:00 54.432 [facility] BMI 2022-11-29 23:30:00 24.24 kg/m2 [facility] Systolic blood pressure 2022-10-17 01:29:00 144 mm[Hg] [facility] Diastolic blood pressure 2022-10-17 01:29:00 85 mm[Hg] [facility] Heart rate 2022-10-17 01:29:00 116 /min [facility] Body temperature 2022-10-17 01:29:00 38.5 Josee [facility] Respiratory rate 2022-10-17 01:29:00 18 /min [facility] Body height 2022-10-17 01:29:00 152.4 cm [facility] Body weight 2022-10-17 01:29:00 57.153 kg [facility] BMI 2022-10-17 01:29:00 24.61 kg/m2 [facility] Oxygen saturation in Arterial blood by Pulse oximetry 2022-10-17 01:29:00 100 /min [facility] Heart rate 2022-03-01 07:00:00 72 /min [facility] Respiratory rate 2022-03-01 07:00:00 14 /min [facility] Oxygen saturation in Arterial blood by Pulse oximetry 2022-03-01 07:00:00 98 /min [facility] Systolic blood pressure 2022-03-01 07:00:00 136 mm[Hg] [facility] Diastolic blood pressure 2022-03-01 07:00:00 83 mm[Hg] [facility] Body temperature 2022-03-01 02:56:00 36.17 Josee [facility] Body height 2022-03-01 02:56:00 152.4 cm [facility] Body weight 2022-03-01 02:56:00 54.432 kg [facility] BMI 2022-03-01 02:56:00 23.44 kg/m2 [facility] Systolic blood pressure 2022-01-09 03:23:00 142 mm[Hg] [facility] Diastolic blood pressure 2022-01-09 03:23:00 77 mm[Hg] [facility] Heart rate 2022-01-09 03:23:00 65 /min [facility] Respiratory rate 2022-01-09 03:23:00 18 /min [facility] Oxygen saturation in Arterial blood by Pulse oximetry 2022-01-09 03:23:00 99 /min [facility] Body temperature 2022-01-09 01:40:00 36.83 Josee [facility] Body height 2022-01-09 01:40:00 152.4 cm [facility] Body weight 2022-01-09 01:40:00 58.968 kg [facility] BMI 2022-01-09 01:40:00 25.39 kg/m2 [facility] Procedures Procedure Date / Time Performed Performing Clinician Source POCT GLUCOSE (AUTOMATED) 2022-11-30 02:42:00 Day Cabezas [facility] POCT GLUCOSE (AUTOMATED) 2022-11-30 01:40:00 Day Cabezas [facility] CT ABDOMEN PELVIS WO CONTRAST 2022-11-30 01:30:00 [facility] URINALYSIS 2022-11-29 23:53:00 Chau Mccartney [facility] BASIC METABOLIC PANEL (NA, K, CL, CO2, GLUCOSE, BUN, CREATININE, CA) 2022-11-29 23:45:00 Lakshmi [facility] CBC WITH DIFF 2022-11-29 23:42:00 [facility] CONSENT/REFUSAL FOR DIAGNOSIS AND TREATMENT 2022-11-29 23:25:06 Doctor Unassigned, [place] [facility] POCT TEST 2022-11-29 12:27:00 Day Cbaezas [facility] RAPID INFLUENZA A/B 2022-10-17 01:33:00 Nicole Holden ra [facility] COVID-19 (ID NOW RAPID TESTING) 2022-10-17 01:33:00 Angelic Holden [facility] CONSENT/REFUSAL FOR DIAGNOSIS AND TREATMENT 2022-10-17 01:23:24 Doctor Unassigned, [place] [facility] US PELVIS COMPLETE WITH TRANSVAGINAL 2022-03-01 08:09:47 Vick Penaloza [facility] CT ABDOMEN PELVIS W CONTRAST 2022-03-01 05:39:15 Vick Penaloza [facility] POCT TEST 2022-03-01 03:59:00 Vick Penaloza [facility] LIPASE 2022-03-01 03:55:00 Vick Penaloza [facility] COMP. METABOLIC PANEL ([id number]) 2022-03-01 03:55:00 Vick Penaloza [facility] CBC WITH DIFF 2022-03-01 03:55:00 [facility] URINALYSIS 2022-03-01 03:55:00 [facility] NOTICE OF PRIVACY PRACTICES 2022-03-01 02:36:44 Doctor Unassigned, [place] [facility] CONSENT/REFUSAL FOR DIAGNOSIS AND TREATMENT 2022-03-01 02:36:31 Doctor Unassigned, [place] [facility] NOTICE OF PRIVACY PRACTICES 2022-01-09 01:30:37 Doctor Unassigned, [place] [facility] CONSENT/REFUSAL FOR DIAGNOSIS AND TREATMENT 2022-01-09 01:29:11 Doctor Unassigned, [place] [facility] Encounters Start Date/Time End Date/Time Encounter Type Admission Type Attending [facility] Care Department Encounter ID Source 2022-11-29 17:30:00 2022-11-29 21:14:00 Emergency X LAKSHMIKATHY GILLRICHY [facility] ERT [id number] [facility] 2022-11-29 17:30:00 2022-11-29 21:14:00 Emergency [facility] 1..840.114 350.1.13.10 4.2.7.2.686 [id number] [facility] 2022-10-16 19:38:00 2022-10-16 20:23:00 Emergency X ANGELIC HOLDEN [facility] ERT [id number] [facility] 2022-10-16 19:38:00 2022-10-16 20:23:00 Emergency Angelic Holden [facility] 1..840.114 350.1.13.10 4.2.7.2.686 [id number] [facility] 2022-02-28 21:58:00 2022-03-01 03:33:00 Emergency X VICK PENALOZA [facility] ERT [id number] [facility] 2022-02-28 21:58:00 2022-03-01 03:33:00 Emergency Vick Penaloza [facility] 1..840.114 350.1.13.10 4.2.7.2.686 [id number] [facility] 2022-01-08 20:47:00 2022-01-08 22:37:00 Emergency X Sanchez TAYLOR [facility] ERT [id number] [facility] 2022-01-08 20:47:00 2022-01-08 22:37:00 Emergency SilverioSanchez Nicole [facility] 1.2.840.114 350.1.13.10 4.2.7.2.686 [id number] [facility] 2022-01-08 00:00:00 2022-01-08 00:00:00 Orders Only Doctor Unassigned, [place] [facility] 1..840.114 350.1.13.10 4.2.7.2.686 [id number] [facility] 2021-06-19 14:48:00 2021-06-19 14:48:00 Emergency X [facility] ERT [id number] [facility] Results Test Description Test Time Test Comments Results Result Co mments Source General acute hospital GLUCOSE (AUTOMATED)2022-11-30 01:42:08* Test Item Value Reference Range Interpretation Comme [facility] POCT GLU (test code = 6034073589) 199 mg/dL 70-110 H Lab Interpretation (test cod e = 63658-4) Abnormal [facility] acute hospital [id number] 00:32:00* Test Item Value Reference Range Interpretation Comme [facility] POCT PREG (test code = 1605) Negative On board controls acceptable with C Line (test code = 3574) Yes POCT PREG LOT # (test code = 3575) LOT:[id number] POCT PREG TEST DATE (test code = 3576) EXP: 2024-01-11 Lab Interpretation (test cod e = 08053-9) [facility] (NA, K, CL, CO2, GLUCOSE, BUN, CREATININE, CA)2022-11-30 00:11:28* Test Item Value Reference Range Interpretation Comme nts NA (test code = 4486258400) 136 mmol/L 135-145 K (test code = 0049810075) 4.7 mmol/L 3.5-5.0 CL (test code = 8750255424) 100 mmol/L 98-108 CO2 TOTAL (test code = 5586169689) 25 mmol/L 23-31 AGAP (test code = 9214438941) 11 2-16 BUN (test code = 6593682501) 15 mg/dL 7-23 GLUCOSE (test code = 5398574959) 275 mg/dL 70-110 H CREATININE (test code = 2263323739) 0.76 mg/dL 0.50-1.04 CALCIUM (test code = 7262258128) 9.0 mg/dL 8.6-10.6 eGFR (test code = 1313048000) 83.1 mL/min/1.73m2 RAFIQ (test code = RAFIQ) Association [...] imaging tests). Lab Interpretation (test code = 43972-0) [facility] (85267)2022-03-01 04:28:28* Test Item Value Reference Range Interpretation Comme nts NA (test code = 4828744503) 134 mmol/L 135-145 L K (test code = 5224797221) 4.3 mmol/L 3.5-5.0 CL (test code = 3332682391) 101 mmol/L 98-108 CO2 TOTAL (test code = 7694855609) 23 mmol/L 23-31 AGAP (test code = 4840113007) 2-16 BUN (test code = 7074452449) 16 mg/dL 7-23 GLUCOSE (test code = 0549090230) 340 mg/dL 70-110 H CREATININE (test code = 0350732027) 0.57 mg/dL 0.50-1.04 TOTAL BILI (test code = 6635166047) 0.1 mg/dL 0.1-1.1 CALCIUM (test code = 1265258950) 9.1 mg/dL 8.6-10.6 T PROTEIN (test code = 8194709730) 7.4 g/dL 6.3-8.2 ALBUMIN (test code = 3742071110) 4.2 g/dL 3.5-5.0 ALK PHOS (test code = 4254488365) 111 U/L 34-122 ALTv (test code = 1742-6) 11 U/L 5-35 AST(SGOT) (test code = 2169311892) 21 U/L 13-40 eGFR (test code = 7570973328) mL/min/1.73m2 RAFIQ (test code = RAFIQ) Association [...] imaging tests). Lab Interpretation (test code = 11343-2) [facility]normal [facility] 04:27:47* Test Item Value Reference Range Interpretation Comme nts LIPASE (test code = 7419802334) 115 U/L 0-220 Lab Interpretation (test cod e = 13228-9) Normal [facility] WITH [id number] 04:24:27* Test Item Value Reference Range Interpretation Comme nts WBC (test code = 6690-2) See_Comment [Automated [employer]] The system which generated this result transmitted reference range: 4.30 - 11.10 10*3/?L. The reference range was not used to interpret this result as normal/abnormal. RBC (test code = 789-8) See_Comment [Automated [employer]] The system which generated this result transmitted reference range: 3.93 - 5.25 10*6/?L. The reference range was not used to interpret this result as normal/abnormal. HGB (test code = 718-7) 10.5 g/dL 11.6-15.0 L HCT (test code = 4544-3) 32.7 % 35.7-45.2 L MCV (test code = 787-2) 76.8 fL 80.6-95.5 L MCH (test code = 785-6) 24.6 pg 25.9-32.8 L MCHC (test code = 786-4) 32.1 g/dL 31.6-35.1 RDW-SD (test code = 92244-3) 40.7 fL 39.0-49.9 RDW-CV (test code = 788-0) 14.6 % 12.0-15.5 PLT (test code = 777-3) See_Comment [Automated [employer]] The system which generated this result transmitted reference range: 166 - 358 10*3/?L. The reference range was not used to interpret this result as normal/abnormal. MPV (test code = 93929-7) 13.4 fL 9.5-12.9 H IPF % (test code = 6627449261) 13.7 % 1.3-7.7 H Platelet count measured by fluorescence method. NRBC/100 WBC (test code = 9213757435) See_Comment [Automated [employer]] The system which generated this result transmitted reference range: 0.0 - 10.0 /100 WBCs. The reference range was not used to interpret this result as normal/abnormal. NRBC x10^3 (test code = 8659244659) <0.01 See_Comment [Automated [employer]] The system which generated this result transmitted reference range: 10*3/?L. The reference range was not used to interpret this result as normal/abnormal. GRAN MAT (NEUT) % (test code = 770-8) 51.8 % IMM GRAN % (test code = 8439359339) 0.30 % LYMPH % (test code = 736-9) 34.1 % MONO % (test code = 5905-5) 9.5 % EOS % (test code = 713-8) 4.0 % BASO % (test code = 706-2) 0.3 % GRAN MAT x10^3(ANC) (test code = 3553553990) 3.39 10*3/uL 1.88-7.09 IMM GRAN x10^3 (test code = 6010826202) <0.03 0.00-0.06 LYMPH x10^3 (test code = 731-0) 2.23 10*3/uL 1.32-3.29 MONO x10^3 (test code = 742-7) 0.62 10*3/uL 0.33-0.92 EOS x10^3 (test code = 711-2) 0.26 10*3/uL 0.03-0.39 BASO x10^3 (test code = 704-7) <0.03 0.01-0.07 Lab Interpretation (test code = 31124-8) [facility] [id number] 03:59:00* Test Item Value Reference Range Interpretation Comme nts POCT PREG (test code = 1605) negative On board controls acceptable with C Line (test code = 3574) present POCT PREG LOT # (test code = 3575) [id number] POCT PREG TEST DATE ( test code = 3576) 08/12/2023 Lab Interpretation (test cod e = 14184-3) Normal [facility]"
[2023-11-15 22:22] LABS: Specific Gravity 1.022 (1.005-1.030); Urine Bacteria <20 /HPF (<20); Urine Bilirubin NEGATIVE (Negative); Urine Blood 3+ (OVER) (Negative); Urine Clarity Clear (Clear); Urine Color Colorless (Yellow); Urine Glucose 4+ (Over) (Negative); Urine Mucus Slight /HPF (None Seen); Urine Protein NEGATIVE (Negative); Urine RBC >50 /HPF (None Seen); Urine Urobilinogen Normal (Normal)
[2023-11-15 22:24] LABS: Absolute Lymphocytes (CBC) 1.8 K/uL (0.7-4.9); Hematocrit 30.5 % (36.0-45.0); MCV 75.3 fL (80-100); Platelets 196 thou/uL (152-406); RBC Red Blood Cell Count 4.05 M/uL (3.86-4.86)
[2023-11-15 22:29] LABS: Albumin 3.2 g/dL (3.4-5.0); Bilirubin Total 0.2 mg/dL (0.2-1.0); Potassium 3.9 mEq/L (3.5-5.1); Protein, Total 7.3 g/dL (6.4-8.2)
[2023-11-15 22:38] LABS: SARS-CoV-2 Antigen Rapid Res Negative (Negative)
--- NOTE | 2023-11-16 00:25 | ER ---
Nurse's Notes [facility] Name: Tati Oliveros Age: 42 yrs Sex: Female : 1980 Arrival Date: 11/15/2023 Time: 21:15 Bed 15 Private MD: Diagnosis: UTI/ Urinary tract infection, site not specified;Type 2 diabetes mellitus with hyperglycemia;Essential (primary) hypertension Presentation: 11/15 21:30 Chief complaint: Patient states: Burning sensation to her back from her neck all the cm10 way down to her hips onset today. Pt reports subjective fever. Coronavirus screen: Vaccine status: Patient reports being unvaccinated. Client denies travel out of the [place] in the last 14 days. Ebola Screen: Patient denies travel to an Ebola-affected area in the 21 days before illness onset. No symptoms or risks identified at this time. Initial Sepsis Screen: Does the patient meet any 2 criteria? No. Patient's initial sepsis screen is negative. Does the patient have a suspected source of infection? No. Patient's initial sepsis screen is negative. Risk Assessment: Do you want to hurt yourself or someone else? Patient reports no desire to harm self or others. Onset of symptoms was November 15, 2023. 21:30 Method Of Arrival: Wheelchair cm10 21:30 Acuity: NICK 3 cm10 Historical: - Allergies: 21:31 No Known Allergies; cm10 - PMHx: 21:31 Diabetes - NIDDM; Hypertension; Kindey problems (kidney stent); cm10 - PSHx: 21:31 ectopic sx; kidney stent; cm10 - Immunization history:: Adult Immunizations unknown. - Social history:: Smoking status: Patient denies any tobacco usage or history of. Screenin:48 [facility] ED Fall Risk Assessment (Adult) History of falling in the last 3 months, rv including since admission No falls in past 3 months (0 pts) Score/Fall Risk Level 0 - 2 = Low Risk Oriented to surroundings, Maintained a safe environment, Educated pt \T\ family on fall prevention, incl call for assistance when getting out of bed, Assessed \T\ reinforced patient's understanding of fall precautions. Abuse screen: Denies threats or abuse. Denies injuries from another. Nutritional screening: No deficits noted. Tuberculosis screening: No symptoms or risk factors identified. Assessment: 21:48 General: Appears uncomfortable, Behavior is calm, cooperative. Pain: Complains of pain rv in back. Neuro: Level of Consciousness is awake, alert, obeys commands, Oriented to person, place, time, situation. Cardiovascular: Capillary refill < 3 seconds Patient's skin is warm and dry. Respiratory: Airway is patent Respiratory effort is even, unlabored. GI: No signs and/or symptoms were reported involving the gastrointestinal system. : No signs and/or symptoms were reported regarding the genitourinary system. Derm: Skin is intact. Vital Signs: 21:30 BP 192 / 106; Pulse 84; Resp 16; Temp 98.6; Pulse Ox 100% on R/A; Weight 56.7 kg; cm10 Height 4 ft. 11 in. ; Pain 9/10; 23:56 BP 155 / 62; Pulse 79; Resp 18; Pulse Ox 99% ; rv 21:30 Body Mass Index 25.25 (56.70 kg, 149.86 cm) cm10 21:30 Pain Scale: Adult cm10 [place] Coma Score: 11/16 00:34 Eye Response: spontaneous(4). Motor Response: obeys commands(6). Verbal Response: rv oriented(5). Total: 15. ED Course: 0203 21:20 Patient arrived in ED. gm2 21:24 Neisha Kraus PA-C is PHCP. sb4 21:24 Stevie Torrez MD is Attending Physician. sb4 21:31 Triage completed. cm10 21:32 Arm band placed on Patient placed in an exam room, on a stretcher. cm10 21:39 Jose David Ramirez, KADY is Primary Nurse. rv 21:48 Patient has correct armband on for positive identification. Client placed on continuous rv cardiac and pulse oximetry monitoring. NIBP monitoring applied. 21:48 No provider procedures requiring assistance completed. rv 22:03 Inserted saline lock: 20 gauge in left forearm, using aseptic technique. Blood rv collected. 23:05 CT Abd/Pelvis - IV Contrast Only In Process Unspecified. EDMS Administered Medications: 22:03 Drug: NS 0.9% IV 1000 ml IV at 1 bolus Per protocol; 1000 mL bolus Route: IV; Rate: 1 rv bolus; Site: left forearm; 22:03 Drug: TORadol - Ketorolac IVP 15 mg IVP once Route: IVP; Site: left forearm; rv 11/16 00:01 Follow up: Response: No adverse reaction rv 11/15 22:03 Drug: Ondansetron IVP 4 mg IVP once; over 2 minutes Route: IVP; Site: left forearm; rv 11/16 00:01 Follow up: Response: No adverse reaction rv 11/15 22:52 Drug: Insulin Regular Human IVP 10 units IVP once {Co-Signature: [email or web address] (Cherie Garcia RN).} rv Route: IVP; Site: left upper arm; 11/16 00:01 Follow up: Response: No adverse reaction; Blood sugar is lowered rv 11/15 22:53 Drug: NS 0.9% IV 1000 ml IV at 1 bolus Per protocol; 1000 mL bolus Route: IV; Rate: 1 rv bolus; Site: left forearm; 11/16 00:00 Follow up: IV Status: Completed infusion; IV Intake: 1000ml rv 00:00 Drug: morphine IVP or IV 4 mg IVP once over 4 mins Route: IVP; Infused Over: 4 mins; rv Site: left forearm; 00:35 Follow up: Response: No adverse reaction rv 00:24 Drug: Rocephin IV 1 grams IV at calculated rate once; Given slow IV push per pharmacy rv instructions Route: IV; Rate: calculated rate; Site: left forearm; 00:35 Follow up: Response: No adverse reaction; IV Status: Completed infusion rv Medication: 11/15 21:48 VIS not applicable for this client. rv Intake: 11/16 00:00 IV: 1000ml; Total: 1000ml. rv Outcome: 00:25 Discharge ordered by MD. cano 00:35 Patient left the ED. rv Signatures: Dispatcher [employer] Jose David Whittington RN RN Neisha Lilly, PA-C PA-C parish4 Angeles Willis RN RN cm10 Ani Kramer 2 Cherie Garcia RN [email or web address]
--- NOTE | 2023-11-16 00:25 | EDPHYS ---
Physician Documentation [facility] Name: Tati Oliveros Age: 42 yrs Sex: Female : 1980 Arrival Date: 11/15/2023 Time: 21:15 Bed 15 Private MD: ED Physician Stevie Torrez HPI: 11/15 21:42 This 42 yrs old Female presents to ER via Wheelchair with complaints of Neck sb4 and Upper Back Pain, Fever. 21:44 burning pain from back of neck to lower back. also reports subjective fever and chills. sb4 UTI symptoms x 1 week. no URI symptoms. no chest pain/sob. did not take home meds today. Historical: - Allergies: 21:31 No Known Allergies; cm10 - PMHx: 21:31 Diabetes - NIDDM; Hypertension; Kindey problems (kidney stent); cm10 - PSHx: 21:31 ectopic sx; kidney stent; cm10 - Immunization history:: Adult Immunizations unknown. - Social history:: Smoking status: Patient denies any tobacco usage or history of. ROS: 21:44 Cardiovascular: Negative for chest pain, palpitations, and edema, sb4 21:44 Constitutional: Positive for body aches, chills, fever, 21:44 Back: Positive for pain at rest, 21:44 : Positive for urinary symptoms, 21:44 All other systems are negative, Exam: 21:44 Head/Face: Normocephalic, atraumatic. Eyes: Extra-ocular motions intact. Periorbital sb4 areas with no swelling, redness, or edema. ENT: Mucous membranes moist. Cardiovascular: Regular rate and rhythm with a normal S1 and S2. Respiratory: Lungs have equal breath sounds bilaterally, clear to auscultation and percussion. No rales, rhonchi or wheezes noted. No increased work of breathing, no retractions or nasal flaring. Abdomen/GI: Soft, non-tender, no distension. Skin: Warm, dry with normal turgor. Normal color with no rashes, no lesions, and no evidence of cellulitis. MS/ Extremity: Pulses equal, no cyanosis. Neurovascular intact. Full, normal range of motion. Neuro: Awake and alert, GCS 15, oriented to person, place, time, and situation. Motor strength 5/5 in all extremities. Sensory grossly intact. 21:44 Constitutional: The patient appears alert, awake, uncomfortable, 21:44 Back: CVA tenderness, that is moderate, is noted on the right, Vital Signs: 21:30 BP 192 / 106; Pulse 84; Resp 16; Temp 98.6; Pulse Ox 100% on R/A; Weight 56.7 kg; cm10 Height 4 ft. 11 in. ; Pain 9/10; 23:56 BP 155 / 62; Pulse 79; Resp 18; Pulse Ox 99% ; rv 21:30 Body Mass Index 25.25 (56.70 kg, 149.86 cm) cm10 21:30 Pain Scale: Adult cm10 [place] Coma Score: 11/16 00:34 Eye Response: spontaneous(4). Motor Response: obeys commands(6). Verbal Response: rv oriented(5). Total: 15. MDM: 11/15 21:34 Patient medically screened. sb4 21:45 Differential diagnosis: covid, flu, UTI, pyelonephritis. sb4 11/16 00:24 Data reviewed: vital signs, nurses notes, lab test result(s), radiologic studies, and sb4 as a result, I will discharge patient. Consideration of Admission/Observation Escalation of care including admission/observation considered. Historians other than the Patient: Daughter/Son: son. Care significantly affected by the following chronic conditions: Diabetes, Hypertension. Counseling: I had a detailed discussion with the patient and/or guardian regarding the historical points, exam findings, and any diagnostic results supporting the discharge/admit diagnosis, the presence of at least one elevated blood pressure reading (>120/80) during this emergency department visit, lab results, radiology results, the need for outpatient follow up, for definitive care, to return to the emergency department if symptoms worsen or persist or if there are any questions or concerns that arise at home. 11/15 21:38 Order name: CBC with Diff; Complete Time: 22:29 sb4 11/15 21:38 Order name: CMP; Complete Time: 22:32 sb4 11/15 21:38 Order name: Lipase; Complete Time: 22:32 sb4 11/15 21:38 Order name: Test, Urine; Complete Time: 22:24 sb4 11/15 21:38 Order name: Urinalysis w/ reflexes; Complete Time: 22:24 sb4 11/15 21:38 Order name: SARS RAPID; Complete Time: 22:39 sb4 11/15 21:38 Order name: Flu; Complete Time: 22:29 sb4 11/15 22:25 Order name: Urine Culture EDMS 11/16 00:01 Order name: Glucose, Ancillary Testing; Complete Time: 00:11 EDMS 11/15 22:33 Order name: CT Abd/Pelvis - IV Contrast Only sb4 11/15 21:38 Order name: IV Saline Lock; Complete Time: 21:40 sb4 11/15 21:38 Order name: Labs collected and sent; Complete Time: 21:40 sb4 Administered Medications: 11/15 22:03 Drug: NS 0.9% IV 1000 ml IV at 1 bolus Per protocol; 1000 mL bolus Route: IV; Rate: 1 rv bolus; Site: left forearm; 22:03 Drug: TORadol - Ketorolac IVP 15 mg IVP once Route: IVP; Site: left forearm; rv 11/16 00:01 Follow up: Response: No adverse reaction rv 11/15 22:03 Drug: Ondansetron IVP 4 mg IVP once; over 2 minutes Route: IVP; Site: left forearm; rv 11/16 00:01 Follow up: Response: No adverse reaction rv 11/15 22:52 Drug: Insulin Regular Human IVP 10 units IVP once {Co-Signature: [email or web address] (Cherie Garcia RN).} rv Route: IVP; Site: left upper arm; 11/16 00:01 Follow up: Response: No adverse reaction; Blood sugar is lowered rv 11/15 22:53 Drug: NS 0.9% IV 1000 ml IV at 1 bolus Per protocol; 1000 mL bolus Route: IV; Rate: 1 rv bolus; Site: left forearm; 11/16 00:00 Follow up: IV Status: Completed infusion; IV Intake: 1000ml rv 00:00 Drug: morphine IVP or IV 4 mg IVP once over 4 mins Route: IVP; Infused Over: 4 mins; rv Site: left forearm; 00:35 Follow up: Response: No adverse reaction rv 00:24 Drug: Rocephin IV 1 grams IV at calculated rate once; Given slow IV push per pharmacy rv instructions Route: IV; Rate: calculated rate; Site: left forearm; 00:35 Follow up: Response: No adverse reaction; IV Status: Completed infusion rv Disposition: 01:49 Co-signature as Attending Physician, Stevie Torrez MD I reviewed the patient's care rn provided by the Advanced Practice Provider and agree with the diagnosis and treatment plan. Disposition Summary: 11/16/23 00:25 Discharge Ordered Notes: Location: Home sb4 Problem: new sb4 Symptoms: have improved sb4 Condition: Stable sb4 Diagnosis - UTI/ Urinary tract infection, site not specified sb4 - Type 2 diabetes mellitus with hyperglycemia sb4 - Essential (primary) hypertension sb4 Followup: sb4 - With: Emergency Department - When: As needed - Reason: Trouble breathing, Worsening of condition Discharge Instructions: - Discharge Summary Sheet sb4 - Urinary Tract Infection, Adult, [id number] sb4 Forms: - Medication Reconciliation Form sb4 - Thank You Letter sb4 - Antibiotic Education sb4 - Prescription Opioid Use sb4 - Patient Portal Instructions sb4 - Leadership Thank You Letter sb4 Prescriptions: - Tramadol 50 mg Oral Tablet - take 1 tablet ORAL route every 8 hours as needed; 12 tablet; Refills: 0, sb4 Product Selection Permitted - Bactrim DS 800-160 mg Oral Tablet - take 1 tablet ORAL route every 12 hours for 7 days; 14 tablet; Refills: 0, sb4 Product Selection Permitted Signatures: Dispatcher [employer] EDStevie Joshi MD MD rn Vicente, Ronaldo RN RN Neisha Lilly PA-C PA-C sb4 Angeles Willis RN RN cm10 Cherie Garcia RN [email or web address]
[2023-11-16 03:11] VITALS: TEMP 98.6
[2023-11-16 03:38] VITALS: BP 155/62; O2SAT 99
--- NOTE | 2023-11-17 10:54 | RAD REPORT ---
EXAM DESCRIPTION: CT - Abdomen Pelvis W Contrast - 11/16/2023 7:15 am CLINICAL HISTORY: 42 years, Female, pyelo COMPARISON: 06/28/2023 - CT stone protocol TECHNIQUE: Contrast-enhanced images of the abdomen and pelvis were performed utilizing 5 mm slice th ickness at 5 mm interval reconstruction from the lung bases to the ischial tuberosities after the adm inistration of IV contrast. In addition multiplanar reformats in the coronal and sagittal plane were obtained and reviewed. An individualized dose optimization technique, Automated Exposure Control, was utilized for the perfo rmed procedure. FINDINGS: Lung bases: The lung bases demonstrate to be clear. Liver: The liver demonstrated presence of decreased attenuation corresponding to mild fatty infiltrat ion. Gallbladder: The gallbladder is contracted most likely related to lack of fasting. No significant pattie ling defects in/or abnormality is identified. Adrenal glands: The adrenal glands demonstrate to be normal. Pancreas: The pancreas demonstrate to be normal. Spleen: The spleen demonstrate to be within normal limits. Kidneys: The right kidney demonstrate normal uptake of contrast media. The left kidney demonstrate no rmal uptake of contrast media with lobulation/findings suggesting cortical scarring especially along the upper and lower pole left kidney. There is no evidence for nephrolithiasis and/or hydronephrosi s. No evidence for focal areas of hypoperfusion. GI: Grossly the unopacified stomach, small bowel and large bowel demonstrate to be within normal limi ts. No evidence for bowel dilatation and/or free air. The appendix is normal. The left-sided colon de monstrate no gross abnormalities. : The urinary bladder demonstrate to be distended with no gross abnormalities. Genitalia: The uterus demonstrate to be within normal limits. There are normal adnexal structures. Abdominal aorta: The aorta demonstrate to be within normal limits. Retroperitoneum: There is no retroperitoneal lymphadenopathy. There is no evidence for ascites and/or abnormal fluid collections. Bones: The bony structures demonstrate to be within normal limits. Soft tissues: The rest of the soft tissue and bony structures are within normal limits. IMPRESSION: No evidence for nephrolithiasis and/or hydronephrosis. Cortical scarring left kidney. Mild fatty infiltration of the liver. Electronically signed by: Jesse Crouch MD 11/15/2023 11:38 PM [employer]ST [employer]UTTER AW[employer] Due to temporary technical issues with the PACS/Fluency reporting system, reports are being signed by the in house radiologist without review as a courtesy to ensure prompt reporting. The interpreting r adiologist is fully responsible for the content of the report.
== END ==
LOC: ER 21:15
DX: N39.0 Urinary tract infection, site not specified (principal); E11.65 Type 2 diabetes mellitus with hyperglycemia; I10 Essential (primary) hypertension; Z11.52 Encounter for screening for COVID-19
CPT/HCPCS: 87088; 85025; 81001; 87086; 36415; 81025; 82947; 83690; 80053; 87804 ×2; 74177; 87811; Q9967; J1815; J2405; J7030 ×2

== ENCOUNTER → 2023-12-10 | Emergency (ER) | payer OTHER ==
[~2023-12-10] MED LIST changes: +AZITHROMYCIN 250 MG TAB ONE; -CEFTRIAXONE 1000 MG/VIAL ONE; +HYDROCODONE/APAP 10/325 TAB ONE; +IBUPROFEN 400 MG TAB ONE; +METOCLOPRAMIDE 5 MG TAB ONE; -MORPHINE 4 MG/ML SYR ONE; -ONDANSETRON 4 MG/2 ML VIAL ONE; +PROMETHAZINE 25 MG TABLET ONE; -WATER FOR INJ,STERILE 10 ML ONE; +cloNIDine HCL 0.1 MG TAB ONE
--- OUTSIDE RECORDS SUMMARY | 2023-12-10 19:43 | XMS REPORT | Continuity of Care Document ---
Author Name Unknown Address [address] [facility] [address] [place] [address] [facility] thconnect Address [address] [facility] [address] [place] [address] Care Team Providers Care Netezza Developer Name Role Phone PCP, PATIENT DOES NOT HAVE A Primary Care Physic sarwat Unavailable DAY CABEZAS Attending Clinician Unavailable Day Ortega Attending Clinician [phone] ANGELIC HOLDEN Attending Clinician Unavailab Angelic Handy DO Attending Clinician [phone] VICK PENALOZA Attending Clinician Unavailable Vick Frye Attending Clinician [phone] Sanchez TAYLOR Attending Clinician Unavailable Sanchez Jarquin Attending Clinician [phone] Doctor Unassigned, [place] Attending Clinician U DAY Wheatley Admitting Clinician Unavailable VICK PENALOZA Admitting Clinician [...] different from the original. ICD10 Diagnosis Term Account Representative Utility [facility] Rubella immune Rubella immune Disease Active 05-17 00:00: 00 [facility] Dysmenorrh ea Dysmenorrh ea Disease Active 05-17 00:00: 00 [facility] Allergies, Adverse Reactions, Alerts Allergy Name Allergy Type Status Severity Reaction(s) Onset Date Inactive Date Treating Clinician Comments Source NO KNOWN ALLERGIE S Drug Class Active [facility] Social History Social Habit Start Date Stop Date Quantity Comments Source Exposure to SARS-CoV-2 (event) 2022-11-19 00:00:00 2022-11-29 17:27:00 Not sure [facility] Alcohol intake 2022-10-16 00:00:00 2022-10-16 00:00:00 Current non-drinker of alcohol (finding) [facility] Tobacco use and exposure 2013-05-17 00:00:00 2013-05-17 00:00:00 Smokeless tobacco non-user [facility] Sex Assigned At 1980 00:00:00 1980 00:00:00 [facility] Smoking Status Start Date Stop Date Source Never smoked tobacco [facility] Medications Ordered Medication Name Filled Medication Name Start Date Stop Date Current Medication? Ordering Clinician Indication Dosage Frequency Signature (SIG) Comments Components Source acetaminoph en-codeine (TYLENOL #3) 300-30 mg tablet 1 tablet 11-30 03:00: 00 11-30 03:02 :00 No 1{tbl} 1 tablet, Oral, ONCE, 1 dose, On Fri11/29/22 at 2100, RHETT [facility] morpHINE (4 mg/mL) injection 2 mg 11-30 03:00: 00 11-30 03:01 :00 No 2mg 2 mg, Slow IV Push, ONCE, 1 dose, On Fri11/29/22 at 2100, STAT [facility] insulin regular human (HUMULIN R) injection 5.44 Units 11-30 02:45: 00 11-30 01:52 :00 No 5.44U 5.44 Units, Subcutaneo us, ONCE, 1 dose, On Fri11/29/22 at 2045, Routine
Indicatio n for insulin: Hyperglyce collin [facility] NaCl 0.9% (NS) bolus infusion 1,000 mL 11-30 01:30: 00 11-30 01:44 :00 No 1000mL at 999 mL/hr, 1,000 mL, IV Infusion, ONCE, 1 dose, On Fri11/29/22 at 1930, STAT [facility] ondansetron (ZOFRAN (PF)) injection 4 mg 11-30 00:15: 00 11-30 00:27 :00 No 4mg 4 mg, Slow IV Push, ONCE, 1 dose, On Fri11/29/22 at 1815, RHETT [facility] morpHINE (4 mg/mL) injection 4 mg 11-30 00:15: 00 11-30 00:37 :00 No 4mg 4 mg, Slow IV Push, ONCE, 1 dose, On Fri11/29/22 at 1815, STAT [facility] proMETHazin e 12.5 mg tablet 11-29 00:00: 00 Yes [id number] 12.5mg Take 1 tablet by mouth every 6 (six) hours as needed for N/V unresponsi ve to Ondansetro n or Nausea and Vomiting (N/V). [facility] acetaminoph en-codeine (TYLENOL-CO DEINE #3) 300-30 mg tablet 11-29 00:00: 00 12-07 05:59 :00 No [id number] 1{tbl} Take 1 tablet by mouth every 4 (four) hours as needed for Pain (scale 7-10) for up to 7 days. Indication s: acute pain [facility] ibuprofen (IBU) tablet 600 mg 10-17 01:45: 00 10-17 01:38 :00 No 600mg 600 mg, Oral, ONCE, 1 dose, On Fri10/16/22 at 1945, RHETT [facility] No known medications 1- 19:24: 15 No No known medication s [facility] naproxen (NAPROSYN) tablet 500 mg 03-01 07:45: 00 03-01 06:52 :00 No 500mg 500 mg, Oral, ONCE, 1 dose, On Fri03/01/22 at 0245, Routine [facility] iopamidol (ISOVUE 370-500 mL) injection 120 mL 03-01 06:45: 00 03-01 05:37 :00 No [id number] 120mL 120 mL, Intravenou s, ONCE, 1 dose, On Fri03/01/22 at 0145, Routine [facility] ondansetron (ZOFRAN (PF)) injection 4 mg 03-01 04:45: 00 03-01 03:55 :00 No 4mg 4 mg, Slow IV Push, ONCE, 1 dose, On Radha 02/28/22 at 2345, RHETT [facility] morpHINE (4 mg/mL) injection 4 mg 03-01 04:45: 00 03-01 03:56 :00 No 4mg 4 mg, Slow IV Push, ONCE, 1 dose, On Fri02/28/22 at 2345, STAT [facility] NaCl 0.9% (NS) bolus infusion 1,000 mL 03-01 04:45: 00 03-01 05:19 :00 No 1000mL at 999 mL/hr, 1,000 mL, IV Infusion, ONCE, 1 dose, On Radha 02/28/22 at 2345, STAT [facility] No known medications 02-28 22:35: 44 No [facility] gabapentin (NEURONTIN) capsule 300 mg 30 03:45: 00 01-09 02:47 :00 No 300mg 300 mg, Oral, ONCE, 1 dose, On Fri01/08/22 at 2245, RHETT [facility] gabapentin 100 mg capsule 01-08 00:00: 00 01-19 04:59 :00 No [id number] 100mg Take 1 capsule by mouth 3 (three) times daily for 10 days. [facility] No known medications 05-17 11:32: 08 No [facility] Vital Signs Vital Name Observation Time Observation Value Comments S yao Systolic blood pressure 2022-11-30 03:02:00 141 mm[Hg] [facility] Diastolic blood pressure 2022-11-30 03:02:00 67 mm[Hg] [facility] Heart rate 2022-11-30 03:02:00 78 /min [facility] acute hospital Respiratory rate 2022-11-30 03:02:00 17 /min [facility] Oxygen saturation in Arterial blood by Pulse oximetry 2022-11-30 03:02:00 100 /min [facility] Body temperature 2022-11-30 00:44:14 36.83 Josee [facility] Body height 2022-11-29 23:30:00 149.9 cm [facility] Body weight 2022-11-29 23:30:00 54.432 kg [facility] BMI 2022-11-29 23:30:00 24.24 kg/m2 [facility] Systolic blood pressure 2022-10-17 01:29:00 144 mm[Hg] [facility] Diastolic blood pressure 2022-10-17 01:29:00 85 mm[Hg] [facility] Heart rate 2022-10-17 01:29:00 116 /min [facility] Body temperature 2022-10-17 01:29:00 38.5 Josee [facility] Respiratory rate 2022-10-17 01:29:00 18 /min [facility] Body height 2022-10-17 01:29:00 152.4 cm [facility] Body weight 2022-10-17 01:29:00 57.153 kg [facility] BMI 2022-10-17 01:29:00 24.61 kg/m2 [facility] Oxygen saturation in Arterial blood by Pulse oximetry 2022-10-17 01:29:00 100 /min [facility] Heart rate 2022-03-01 07:00:00 72 /min [facility] Respiratory rate 2022-03-01 07:00:00 14 /min [facility] Oxygen saturation in Arterial blood by Pulse oximetry 2022-03-01 07:00:00 98 /min [facility] Systolic blood pressure 2022-03-01 07:00:00 136 mm[Hg] [facility] Diastolic blood pressure 2022-03-01 07:00:00 83 mm[Hg] [facility] Body temperature 2022-03-01 02:56:00 36.17 Josee [facility] Body height 2022-03-01 02:56:00 152.4 cm [facility] Body weight 2022-03-01 02:56:00 54.432 kg [facility] BMI 2022-03-01 02:56:00 23.44 kg/m2 [facility] Systolic blood pressure 2022-01-09 03:23:00 142 mm[Hg] [facility] Diastolic blood pressure 2022-01-09 03:23:00 77 mm[Hg] [facility] Heart rate 2022-01-09 03:23:00 65 /min [facility] Respiratory rate 2022-01-09 03:23:00 18 /min [facility] Oxygen saturation in Arterial blood by Pulse oximetry 2022-01-09 03:23:00 99 /min [facility] Body temperature 2022-01-09 01:40:00 36.83 Josee [facility] Body height 2022-01-09 01:40:00 152.4 cm [facility] Body weight 2022-01-09 01:40:00 58.968 kg [facility] BMI 2022-01-09 01:40:00 25.39 kg/m2 [facility] Procedures Procedure Date / Time Performed Performing Clinician Source POCT GLUCOSE (AUTOMATED) 2022-11-30 02:42:00 Day Cabezas [facility] POCT GLUCOSE (AUTOMATED) 2022-11-30 01:40:00 Day Cabezas [facility] CT ABDOMEN PELVIS WO CONTRAST 2022-11-30 01:30:00 [facility] URINALYSIS 2022-11-29 23:53:00 Chau Mccartney [facility] BASIC METABOLIC PANEL (NA, K, CL, CO2, GLUCOSE, BUN, CREATININE, CA) 2022-11-29 23:45:00 Lakshmi [facility] CBC WITH DIFF 2022-11-29 23:42:00 Chau Mccartney [facility] CONSENT/REFUSAL FOR DIAGNOSIS AND TREATMENT 2022-11-29 23:25:06 Doctor Unassigned, [place] [facility] POCT TEST 2022-11-29 12:27:00 Day Cabezas [facility] RAPID INFLUENZA A/B 2022-10-17 01:33:00 Nicole Holden ra [facility] COVID-19 (ID NOW RAPID TESTING) 2022-10-17 01:33:00 Angelic Holden [facility] CONSENT/REFUSAL FOR DIAGNOSIS AND TREATMENT 2022-10-17 01:23:24 Doctor Unassigned, [place] [facility] US PELVIS COMPLETE WITH TRANSVAGINAL 2022-03-01 08:09:47 Vick Penaloza [facility] CT ABDOMEN PELVIS W CONTRAST 2022-03-01 05:39:15 Vick Penaloza [facility] POCT TEST 2022-03-01 03:59:00 Vick Penaloza [facility] LIPASE 2022-03-01 03:55:00 Vick Penaloza [facility] COMP. METABOLIC PANEL (08323) 2022-03-01 03:55:00 Vick Penaloza [facility] CBC WITH DIFF 2022-03-01 03:55:00 Vick Penaloza [facility] URINALYSIS 2022-03-01 03:55:00 Vick Penaloza [facility] NOTICE OF PRIVACY PRACTICES 2022-03-01 02:36:44 Doctor Unassigned, [place] [facility] CONSENT/REFUSAL FOR DIAGNOSIS AND TREATMENT 2022-03-01 02:36:31 Doctor Unassigned, [place] [facility] NOTICE OF PRIVACY PRACTICES 2022-01-09 01:30:37 Doctor Unassigned, [place] [facility] CONSENT/REFUSAL FOR DIAGNOSIS AND TREATMENT 2022-01-09 01:29:11 Doctor Unassigned, [place] [facility] Encounters Start Date/Time End Date/Time Encounter Type Admission Type Attending [facility] Care Department Encounter ID Source 2022-11-29 17:30:00 2022-11-29 21:14:00 Emergency X LAKSHMIKATHY GILLRICHY [facility] ERT [id number] [facility] 2022-11-29 17:30:00 2022-11-29 21:14:00 Emergency [facility] 1..840.114 350.1.13.10 4.2.7.2.686 [id number] [facility] 2022-10-16 19:38:00 2022-10-16 20:23:00 Emergency X ANGELIC HOLDEN [facility] ERT [id number] [facility] 2022-10-16 19:38:00 2022-10-16 20:23:00 Emergency Angelic Holden [facility] 1..840.114 350.1.13.10 4.2.7.2.686 [id number] [facility] 2022-02-28 21:58:00 2022-03-01 03:33:00 Emergency X VICK PENALOZA [facility] ERT [id number] [facility] 2022-02-28 21:58:00 2022-03-01 03:33:00 Emergency Vick Penaloza [facility] 1..840.114 350.1.13.10 4.2.7.2.686 [id number] [facility] 2022-01-08 20:47:00 2022-01-08 22:37:00 Emergency X Sanchez TAYLOR [facility] ERT [id number] [facility] 2022-01-08 20:47:00 2022-01-08 22:37:00 Emergency SilverioSanchez Nicole [facility] 1.2.840.114 350.1.13.10 4.2.7.2.686 [id number] [facility] 2022-01-08 00:00:00 2022-01-08 00:00:00 Orders Only Doctor Unassigned, [place] [facility] 1..840.114 350.1.13.10 4.2.7.2.686 [id number] [facility] 2021-06-19 14:48:00 2021-06-19 14:48:00 Emergency X [facility] ERT [id number] [facility] Results Test Description Test Time Test Comments Results Result Co mments Source [facility] GLUCOSE (AUTOMATED)2022-11-30 01:42:08* Test Item Value Reference Range Interpretation Comme [facility] POCT GLU (test code = 2742907144) 199 mg/dL 70-110 H Lab Interpretation (test cod e = 21389-0) Abnormal [facility] [id number] 00:32:00* Test Item Value Reference Range Interpretation Comme [facility] POCT PREG (test code = 1605) Negative On board controls acceptable with C Line (test code = 3574) Yes POCT PREG LOT # (test code = 3575) LOT:[id number] POCT PREG TEST DATE (test code = 3576) EXP: 2024-01-11 Lab Interpretation (test cod e = 10472-8) [facility] (NA, K, CL, CO2, GLUCOSE, BUN, CREATININE, CA)2022-11-30 00:11:28* Test Item Value Reference Range Interpretation Comme nts NA (test code = 2851135233) 136 mmol/L 135-145 K (test code = 4271422652) 4.7 mmol/L 3.5-5.0 CL (test code = 6560669423) 100 mmol/L 98-108 CO2 TOTAL (test code = 4986835036) 25 mmol/L 23-31 AGAP (test code = 9020150726) 11 2-16 BUN (test code = 1329807391) 15 mg/dL 7-23 GLUCOSE (test code = 6579785674) 275 mg/dL 70-110 H CREATININE (test code = 1677791771) 0.76 mg/dL 0.50-1.04 CALCIUM (test code = 8608397261) 9.0 mg/dL 8.6-10.6 eGFR (test code = 0817843638) 83.1 mL/min/1.73m2 RAFIQ (test code = RAFIQ) [...] imaging tests). Lab Interpretation (test code = 76893-8) [facility] (16554)2022-03-01 04:28:28* Test Item Value Reference Range Interpretation Comme nts NA (test code = 3530281931) 134 mmol/L 135-145 L K (test code = 7090582807) 4.3 mmol/L 3.5-5.0 CL (test code = 0902663311) 101 mmol/L 98-108 CO2 TOTAL (test code = 5026920968) 23 mmol/L 23-31 AGAP (test code = 6794186306) 2-16 BUN (test code = 7761514924) 16 mg/dL 7-23 GLUCOSE (test code = 8396684457) 340 mg/dL 70-110 H CREATININE (test code = 3505063159) 0.57 mg/dL 0.50-1.04 TOTAL BILI (test code = 9308506310) 0.1 mg/dL 0.1-1.1 CALCIUM (test code = 4433321651) 9.1 mg/dL 8.6-10.6 T PROTEIN (test code = 7678103007) 7.4 g/dL 6.3-8.2 ALBUMIN (test code = 6445003202) 4.2 g/dL 3.5-5.0 ALK PHOS (test code = 9836337628) 111 U/L 34-122 ALTv (test code = 1742-6) 11 U/L 5-35 AST(SGOT) (test code = 8523471488) 21 U/L 13-40 eGFR (test code = 8622008844) mL/min/1.73m2 RAFIQ (test code = RAFIQ) Association [...] imaging tests). Lab Interpretation (test code = 36833-7) [facility] 04:27:47* Test Item Value Reference Range Interpretation Comme nts LIPASE (test code = 7788213276) 115 U/L 0-220 Lab Interpretation (test cod e = 98287-1) Normal [facility] WITH [id number] 04:24:27* Test Item Value Reference Range Interpretation Comme nts WBC (test code = 6690-2) See_Comment [Automated [employer]] The system which generated this result transmitted reference range: 4.30 - 11.10 10*3/?L. The reference range was not used to interpret this result as normal/abnormal. RBC (test code = 789-8) See_Comment [Automated [employer]] The system which generated this result transmitted [...] 32.1 g/dL 31.6-35.1 RDW-SD (test code = 61695-0) 40.7 fL 39.0-49.9 RDW-CV (test code = 788-0) 14.6 % 12.0-15.5 PLT (test code = 777-3) See_Comment [Automated [employer]] The system which generated this result transmitted reference range: 166 - 358 10*3/?L. The reference range was not used to interpret this result as normal/abnormal. MPV (test code = 89536-7) 13.4 fL 9.5-12.9 H IPF % (test code = 8684234190) 13.7 % 1.3-7.7 H Platelet count measured by fluorescence method. NRBC/100 WBC (test code = 4981690046) See_Comment [Automated [employer] ssage] The system which generated this result transmitted reference range: 0.0 - 10.0 /100 WBCs. The reference range was not used to interpret this result as normal/abnormal. NRBC x10^3 (test code = 2839809840) <0.01 See_Comment [Automated [employer]] The system which generated this result transmitted reference range: 10*3/?L. The reference range was not used to interpret this result as normal/abnormal. GRAN MAT (NEUT) % (test code = 770-8) 51.8 % IMM GRAN % (test code = 1494415145) 0.30 % LYMPH % (test code = 736-9) 34.1 % MONO % (test code = 5905-5) 9.5 % EOS % (test code = 713-8) 4.0 % BASO % (test code = 706-2) 0.3 % GRAN MAT x10^3(ANC) (test code = 9063340711) 3.39 10*3/uL 1.88-7.09 IMM GRAN x10^3 (test code = 0459424073) <0.03 0.00-0.06 LYMPH x10^3 (test code = 731-0) 2.23 10*3/uL 1.32-3.29 MONO x10^3 (test code = 742-7) 0.62 10*3/uL 0.33-0.92 EOS x10^3 (test code = 711-2) 0.26 10*3/uL 0.03-0.39 BASO x10^3 (test code = 704-7) <0.03 0.01-0.07 Lab Interpretation (test code = 49327-0) [id number] 03:59:00* Test Item Value Reference Range Interpretation Comme nts POCT PREG (test code = 1605) negative On board controls acceptable with C Line (test code = 3574) present POCT PREG LOT # (test code = 3575) [id number] POCT PREG TEST DATE ( test code = 3576) 08/12/2023 Lab Interpretation (test cod e = 40950-4) Normal [facility]"
[2023-12-10 20:53] LABS: Absolute Lymphocytes (CBC) 2.3 K/uL (0.7-4.9); Lymphocytes % 30.8 % (15.3-44.8); MCV 75.2 fL (80-100); MPV 11.1 fL (7.6-11.3); Platelets 184 thou/uL (152-406); RBC Red Blood Cell Count 4.26 M/uL (3.86-4.86)
--- NOTE | 2023-12-10 21:07 | RAD REPORT ---
EXAM DESCRIPTION: RAD - Chest Pa And Lat (2 Views) - 12/10/2023 9:00 pm CLINICAL HISTORY: CHEST PAIN Chest pain. COMPARISON: Chest Pa And Lat (2 Views) dated 09/28/2023; Chest Single View dated 11/04/2022; Chest Si ngle View dated 10/19/2022; Chest Single View dated 10/21/2020 FINDINGS: The lungs are clear. The heart is normal in size. No displaced fractures. IMPRESSION: No acute or concerning finding suspected.
[2023-12-10 21:16] LABS: Potassium 3.9 mEq/L (3.5-5.1)
[2023-12-10 21:22] LABS: SARS-CoV-2 Antigen Rapid Res Negative (Negative)
--- NOTE | 2023-12-10 22:51 | EDPHYS ---
Physician Documentation [facility] Name: Tati Oliveros Age: 42 yrs Sex: Female : 1980 Arrival Date: 12/10/2023 Time: 19:40 Bed 20 Private MD: Arti Lambert ED Physician Willy Edmond HPI: 12/10 20:05 This 42 yrs old Female presents to ER via Unassigned with complaints of sp4 Breathing Difficulty, Cough. 00:12 Very pleasant 42-year-old Kyrgyz-speaking patient presents with complaint of shortness sp4 of breath, cough, headache, feeling unwell.. 00:13 Patient states she is starting to have an discomfort cough and headache yesterday sp4 morning. Patient has history of diabetes mellitus type 2, she is on Farxiga . Patient has history of hypertension she is on lisinopril. Patient also has history of right ureteral stent for prior kidney stones, . GERM DRIER: 12/10 20:09 LMP 11/20/2023, unknown vc1 Historical: - PMHx: 20:08 Kindey problems (kidney stent); Hypertension; Diabetes - NIDDM; vc1 - PSHx: 20:08 ectopic sx; kidney stent; vc1 - Immunization history:: Client reports having NOT received the Covid vaccine. - Social history:: Smoking status: Patient denies any tobacco usage or history of. - Family history:: not pertinent. ROS: 00:14 Constitutional: Negative for fever, chills, and weight loss, positive for body aches, sp4 headache, chills, breathing difficulty, cough, head ache All other systems are negative, Exam: 00:14 Constitutional: This is a well developed, well nourished patient who is awake, alert, sp4 and in no acute distress. Head/Face: Normocephalic, atraumatic. Eyes: Pupils equal round and reactive to light, extra-ocular motions intact. Lids and lashes normal. Conjunctiva and sclera are not injected. Cornea within normal limits. Periorbital areas with no swelling, redness, or edema. ENT: Nares patent. No nasal discharge, no septal abnormalities noted. Tympanic membranes are normal and external auditory canals are clear. Oropharynx with no redness, swelling, or masses, exudates, or evidence of obstruction, uvula midline. Mucous membranes moist. Neck: Trachea midline, no thyromegaly or masses palpated, and no cervical lymphadenopathy. Supple, full range of motion without nuchal rigidity, or vertebral point tenderness. Chest/axilla: Normal chest wall appearance and motion. Nontender with no deformity. No lesions are appreciated. Cardiovascular: Regular rate and rhythm with a normal S1 and S2. No gallops, murmurs, or rubs. Normal PMI, no JVD. No pulse deficits. Respiratory: Lungs have equal breath sounds bilaterally, clear to auscultation and percussion. No rales, rhonchi or wheezes noted. No increased work of breathing, no retractions or nasal flaring. Abdomen/GI: Soft, with normal bowel sounds. No distension or tympany. No guarding or rebound. No evidence of tenderness throughout. Back: No spinal tenderness. No costovertebral tenderness. Skin: Warm, dry with normal turgor. Normal color with no rashes, no lesions, and no evidence of cellulitis. MS/ Extremity: Pulses equal, no cyanosis. Neurovascular intact. Full, normal range of motion. Neuro: Awake and alert, GCS 15, oriented to person, place, time, and situation. Cranial nerves II-XII grossly intact. Motor strength 5/5 in all extremities. Sensory grossly intact. Psych: Awake, alert, with orientation to person, place and time. Behavior, mood, and affect are within normal limits Vital Signs: 12/10 20:06 Weight 54.43 kg; Height 4 ft. 11 in. ; Pain 7/10; vc1 20:09 BP 161 / 90; Pulse 87; Resp 20; Temp 97.9; Pulse Ox 100% ; vc1 22:01 BP 183 / 97; Pulse 78; Resp 17 S; Pulse Ox 100% on R/A; ha1 22:30 BP 183 / 86; Pulse 79; Resp 15 S; Pulse Ox 100% on R/A; ha1 23:00 BP 170 / 86; Pulse 80; Resp 17 S; Pulse Ox 100% on R/A; ha1 23:30 BP 160 / 78; Pulse 80; Resp 17 S; Temp 98.1; Pulse Ox 100% on R/A; ha1 20:06 Body Mass Index 24.24 (54.43 kg, 149.86 cm) vc1 20:06 Pain Scale: Adult vc1 MDM: 19:52 Patient medically screened. kb 00:17 Differential diagnosis: Anxiety Reaction asthma, Bronchitis CHF exacerbation, sp4 pneumonia. Data reviewed: vital signs, nurses notes, lab test result(s), Flu: negative radiologic studies, plain films. Consideration of Admission/Observation Escalation of care including admission/observation considered. ED course: EXAM DESCRIPTION: RAD - Chest Pa And Lat (2 Views) - 12/10/2023 9:00 pm CLINICAL HISTORY: CHEST PAIN Chest pain. COMPARISON: Chest Pa And Lat (2 Views) dated 09/28/2023; Chest Single View dated 11/04/2022; Chest Single View dated 10/19/2022; Chest Single View dated 10/21/2020 FINDINGS: The lungs are clear. The heart is normal in size. No displaced fractures. IMPRESSION: No acute or concerning finding suspected. . ED course: Patient is stable for discharge home with as needed dextromethorphan, azithromycin for the next 5 days.. 00:17 ED course: Will advise diabetic diet, continuation of home medications for diabetes and sp4 hypertension, also will advise bedrest for the next 3 days, as needed tramadol for headache. As needed ibuprofen for headache as well.. 12/10 20:06 Order name: SARS RAPID; Complete Time: 22:43 sp4 12/10 20:06 Order name: Influenza Screen (a \T\ B); Complete Time: 22:43 sp4 12/10 20:20 Order name: Basic Metabolic Panel; Complete Time: 21:21 sp4 12/10 20:20 Order name: CBC with Diff; Complete Time: 21:21 sp4 12/10 23:18 Order name: Glucose, Ancillary Testing; Complete Time: 00:15 EDMS 12/10 20:20 Order name: Chest Pa And Lat (2 Views) XRAY; Complete Time: 21:21 sp4 12/10 20:20 Order name: IV Saline Lock; Complete Time: 20:47 sp4 12/10 20:20 Order name: Labs collected and sent; Complete Time: 20:47 sp4 Administered Medications: 12/10 20:47 Drug: Dunlap PO 10 mg-325 mg 1 tabs PO once Route: PO; rv 20:47 Drug: Promethazine PO 25 mg PO once Route: PO; rv 20:47 Drug: Ibuprofen PO 800 mg PO once Route: PO; rv 21:52 Drug: NS 0.9% IV 1000 ml IV at 1 bolus Per protocol; 1000 mL bolus Route: IV; Rate: 1 lg3 bolus; Site: right wrist; 23:30 Follow up: Response: No adverse reaction; IV Status: Completed infusion; IV Intake: ha1 1000ml 21:53 Drug: Insulin Regular Human IVP 10 units IVP once {Co-Signature: tm6 (Siva Davis lg3 RN).} Route: IVP; Site: right wrist; 23:00 Follow up: Response: No adverse reaction; Blood sugar is lowered ha1 23:01 Drug: cloNIDine PO 0.1 mg PO once Route: PO; ha1 23:30 Follow up: Response: No adverse reaction; Marked relief of symptoms; Blood pressure is ha1 lowered 23:01 Drug: [place]lap PO 10 mg-325 mg 1 tabs PO once Route: PO; ha1 23:30 Follow up: Response: No adverse reaction; Pain is decreased; RASS: Alert and Calm (0) ha1 23:01 Drug: Ketorolac IVP 15 mg IVP once Route: IVP; Site: right hand; ha1 23:30 Follow up: Response: No adverse reaction; Pain is decreased ha1 23:01 Drug: MetoCLOPramide PO 10 mg PO once Route: PO; ha1 23:30 Follow up: Response: No adverse reaction ha1 23:01 Drug: AZITHromycin PO 500 mg PO once Route: PO; ha1 23:30 Follow up: Response: No adverse reaction ha1 Disposition Summary: 12/10/23 22:50 Discharge Ordered Notes: Location: Home sp4 Problem: new sp4 Symptoms: have improved sp4 Condition: Stable sp4 Diagnosis - Acute bronchitis, unspecified sp4 - Acute upper respiratory infection, unspecified sp4 - Essential (primary) hypertension sp4 - Type 2 diabetes mellitus with hyperglycemia sp4 Followup: sp4 - With: Private Physician - When: 7 - 10 days - Reason: Recheck today's complaints Discharge Instructions: - Discharge Summary Sheet sp4 - Acute Bronchitis, Adult sp4 - Diabetes Mellitus and Nutrition, Adult sp4 Forms: - Prescription Opioid Use sp4 Prescriptions: - dextromethorphan-guaifenesin 60-1,200 mg Oral Tablet, Extended Release 12 hr - take 1 tablet ORAL route every 12 hours PRN cough; 42 tablet; Refills: 0, sp4 Product Selection Permitted - Tramadol 50 mg Oral tablet - take 1 tablet ORAL route every 8 hours PRN headaches; 20 tablet; Refills: 0, sp4 Product Selection Permitted - Zithromax Z-Tim 250 mg Oral Tablet - take 1 tablet ORAL route as directed for 5 days Day 1 - take two (2) tablets sp4 one time. Day 2, 3, 4 , 5 take one (1) tablet once daily.; 6 tablet; Refills: 0, Product Selection Permitted - promethazine 25 mg Oral tablet - take 1 tablet ORAL route every 6 hours As needed PRN nausea; 30 tablet; sp4 Refills: 0, Product Selection Permitted Signatures: Dispatcher [employer] EDAlaina Cade, ANAYAC ENGINEERING PRODUCTION WORKER-CkJsoe David Polk RN RN rv AbleKeily RN RN lg3 Yenny Molina RN RN vc1 Joy Pagan RN RN ha1 Willy Edmond MD MD sp4 Siva Davis RN tm6
--- NOTE | 2023-12-10 22:51 | ER ---
Nurse's Notes [facility] Name: Tati Oliveros Age: 42 yrs Sex: Female : 1980 Arrival Date: 12/10/2023 Time: 19:40 Bed 20 Private MD: Arti Lambert Diagnosis: Acute bronchitis, unspecified;Acute upper respiratory infection, unspecified;Essential (primary) hypertension;Type 2 diabetes mellitus with hyperglycemia Presentation: 12/10 20:06 Chief complaint: Patient's son or daughter states: Having trouble breathing. She's vc1 feeling pressure in her chest when she coughs and her head is hurting really bad. Ebola Screen: Patient negative for fever greater than or equal to 101.5 degrees Fahrenheit, and additional compatible Ebola Virus Disease symptoms Patient denies exposure to infectious person. Patient denies travel to an Ebola-affected area in the 21 days before illness onset. No symptoms or risks identified at this time. Initial Sepsis Screen: Does the patient meet any 2 criteria? No. Patient's initial sepsis screen is negative. Does the patient have a suspected source of infection? No. Patient's initial sepsis screen is negative. Risk Assessment: Do you want to hurt yourself or someone else? Patient reports no desire to harm self or others. Onset of symptoms was December 09, 2023. 20:06 Method Of Arrival: Ambulatory vc1 20:06 Acuity: NICK 3 vc1 20:06 Coronavirus screen: Vaccine status: Patient reports being unvaccinated. ha1 Triage Assessment: 20:10 General: Appears in no apparent distress. uncomfortable, ill, Behavior is calm, vc1 cooperative, appropriate for age. Pain: Complains of pain in head Pain currently is 7 out of 10 on a pain scale. Aggravated by couging Noted to be coughin. Respiratory: Reports shortness of breath cough that is productive, persistent Onset: The symptoms/episode began/occurred yesterday, the patient has mild shortness of breath. Respiratory: Airway is patent Respiratory effort is even, unlabored, Respiratory pattern is regular, symmetrical. 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 - Social history:: Smoking status: Patient denies any tobacco usage or history of. - Family history:: not pertinent. Screenin:54 [facility] ED Fall Risk Assessment (Adult) History of falling in the last 3 months, lg3 including since admission No falls in past 3 months (0 pts). Abuse screen: Denies threats or abuse. Denies injuries from another. Nutritional screening: No deficits noted. Tuberculosis screening: No symptoms or risk factors identified. Assessment: 21:54 General: Appears in no apparent distress. uncomfortable, Behavior is calm, cooperative. lg3 Pain: Complains of pain in head and chest. Neuro: No deficits noted. Real Agitation-Sedation Scale (RASS): 0 - Alert and Calm Level of Consciousness is awake, alert, obeys commands, Oriented to person, place, time, situation, Reports headache. Cardiovascular: No deficits noted. Reports chest pain, shortness of breath, Heart tones S1 S2 present Capillary refill < 3 seconds Clubbing of nail beds is absent JVD is absent Patient's skin is warm and dry. Rhythm is regular. Respiratory: Reports cough that is pain with cough Airway is patent Respiratory effort is even, unlabored, Respiratory pattern is regular, symmetrical, Breath sounds are clear bilaterally. GI: No deficits noted. No signs and/or symptoms were reported involving the gastrointestinal system. : No deficits noted. No signs and/or symptoms were reported regarding the genitourinary system. EENT: No deficits noted. No signs and/or symptoms were reported regarding the EENT system. Derm: No deficits noted. No signs and/or symptoms reported regarding the dermatologic system. Skin is intact, is healthy with good turgor, Skin is dry, Skin is normal, Skin temperature is warm. Musculoskeletal: No deficits noted. No signs and/or symptoms reported regarding the musculoskeletal system. Circulation, motion, and sensation intact. Range of motion: intact in all extremities. 22:47 Reassessment: Patient and/or family updated on plan of care and expected duration. Pain ha1 level reassessed. Patient is alert, oriented x 3, equal unlabored respirations, skin warm/dry/pink. Patient states symptoms have improved. Vital Signs: 20:06 Weight 54.43 kg; Height 4 ft. 11 in. ; Pain 7/10; vc1 20:09 BP 161 / 90; Pulse 87; Resp 20; Temp 97.9; Pulse Ox 100% ; vc1 22:01 BP 183 / 97; Pulse 78; Resp 17 S; Pulse Ox 100% on R/A; ha1 22:30 BP 183 / 86; Pulse 79; Resp 15 S; Pulse Ox 100% on R/A; ha1 23:00 BP 170 / 86; Pulse 80; Resp 17 S; Pulse Ox 100% on R/A; ha1 23:30 BP 160 / 78; Pulse 80; Resp 17 S; Temp 98.1; Pulse Ox 100% on R/A; ha1 20:06 Body Mass Index 24.24 (54.43 kg, 149.86 cm) vc1 20:06 Pain Scale: Adult vc1 ED Course: 19:43 Patient arrived in ED. mr 19:44 Arti Lambert is Private Physician. mr 19:52 Al[facility] Swan [facility]C [facility] kb 19:52 Robinson Dowell MD is Attending Physician. kb 20:05 Willy Edmond MD is Attending Physician. sp4 20:08 Triage completed. vc1 20:08 Arm band placed on left wrist. vc1 21:01 Chest Pa And Lat (2 Views) XRAY In Process Unspecified. EDMS 21:52 Inserted saline lock: 20 gauge in right wrist, using aseptic technique. lg3 21:54 Patient has correct armband on for positive identification. Placed in gown. Bed in low lg3 position. Call light in reach. Side rails up X 1. Client placed on continuous cardiac and pulse oximetry monitoring. NIBP monitoring applied. monitoring specialist on. Door closed. Noise minimized. Warm blanket given. Family accompanied patient. 21:54 Patient maintains SpO2 saturation greater than 95% on room air. lg3 22:47 Joy Pagan, RN is Primary Nurse. ha1 23:09 No provider procedures requiring assistance completed. ha1 23:30 Provided Education on: GLUCOSE MONITORING . ha1 23:30 IV discontinued, intact, bleeding controlled, No redness/swelling at site. Pressure ha1 dressing applied. Administered Medications: 20:47 Drug: [place] PO 10 mg-325 mg 1 tabs PO once Route: PO; rv 20:47 Drug: Promethazine PO 25 mg PO once Route: PO; rv 20:47 Drug: Ibuprofen PO 800 mg PO once Route: PO; rv 21:52 Drug: NS 0.9% IV 1000 ml IV at 1 bolus Per protocol; 1000 mL bolus Route: IV; Rate: 1 lg3 bolus; Site: right wrist; 23:30 Follow up: Response: No adverse reaction; IV Status: Completed infusion; IV Intake: ha1 1000ml 21:53 Drug: Insulin Regular Human IVP 10 units IVP once {Co-Signature: tm6 (Siva Davis lg3 RN).} Route: IVP; Site: right wrist; 23:00 Follow up: Response: No adverse reaction; Blood sugar is lowered ha1 23:01 Drug: cloNIDine PO 0.1 mg PO once Route: PO; ha1 23:30 Follow up: Response: No adverse reaction; Marked relief of symptoms; Blood pressure is ha1 lowered 23:01 Drug: [place] PO 10 mg-325 mg 1 tabs PO once Route: PO; ha1 23:30 Follow up: Response: No adverse reaction; Pain is decreased; RASS: Alert and Calm (0) ha1 23:01 Drug: Ketorolac IVP 15 mg IVP once Route: IVP; Site: right hand; ha1 23:30 Follow up: Response: No adverse reaction; Pain is decreased ha1 23:01 Drug: MetoCLOPramide PO 10 mg PO once Route: PO; ha1 23:30 Follow up: Response: No adverse reaction ha1 23:01 Drug: AZITHromycin PO 500 mg PO once Route: PO; ha1 23:30 Follow up: Response: No adverse reaction ha1 Medication: 23:30 VIS not applicable for this client. ha1 Intake: 23:30 IV: 1000ml; Total: 1000ml. ha1 Outcome: 22:50 Discharge ordered by MD. damon 23:30 Condition: stable ha1 23:30 Discharged to home ambulatory, with family, ha1 23:30 Discharge instructions given to patient, family, Instructed on discharge instructions, follow up and referral plans. medication usage, Demonstrated understanding of instructions, follow-up care, medications, Prescriptions given X 4, 23:35 Patient left the ED. ha1 Signatures: Dispatcher [employer] EDAlaina Cade, ANAYAC ENGRAVER APPRENTICE DECORATIVE-Joi Lee, Reg Reg mr James, Jose David, RN RN rv Able, Keily, RN RN lg3 Tracy, Yenny, RN RN vc1 Joy Pagan, RN RN ha1 Willy Edmond MD MD sp4 Siva Davis RN tm6
[2023-12-11 00:26] VITALS: BP 183/86; TEMP 97.9; O2SAT 100
== END ==
LOC: ER 19:40
DX: J20.9 Acute bronchitis, unspecified (principal); E11.65 Type 2 diabetes mellitus with hyperglycemia; I10 Essential (primary) hypertension; Z11.52 Encounter for screening for COVID-19; Z28.310 Unvaccinated for COVID-19
CPT/HCPCS: 85025; 80048; 36415; 82947; 87804 ×2; 71046; 87811; J1815; Q0169; J7030

== ENCOUNTER 2024-03-07 19:18 | Emergency (ER) | payer OTHER ==
[2024-03-07] MEDS ORDERED: ONDANSETRON 4 MG/2 ML VIAL ONE (20:21)
[2024-03-07] MEDS ORDERED: KETOROLAC 30 MG/ML INJ ONE (20:22)
[2024-03-07] MEDS ORDERED: MORPHINE 4 MG/ML SYR ONE (20:22)
[2024-03-07] MEDS ORDERED: NA CHLORIDE 0.9% 1,000 ML ONE ×2 (20:22→23:17)
[2024-03-07 20:34] LABS: Absolute Eosinophils 0.2 K/uL (0-0.5); Absolute Lymphocytes (CBC) 1.6 K/uL (0.7-4.9); Absolute Monocytes 0.5 K/uL (0.1-1.3); Absolute Neutrophil 3.5 K/uL (1.8-8.0); Basophils % 0.5 % (0-1.3); Eosinophils % 3.4 % (0-4.4); Hematocrit 35.3 % (36.0-45.0); Hemoglobin 11.3 g/dL (12.0-15.0); Lymphocytes % 28.1 % (15.3-44.8); MCH 24.4 pg (27.0-35.0); MCHC 32.1 g/dL (32.0-36.0); MPV 9.9 fL (7.6-11.3); Monocytes % 8.2 % (3.3-12.3); Neutrophils % 59.8 % (41.7-73.7); Platelets 224 thou/uL (152-406); RBC Red Blood Cell Count 4.65 M/uL (3.86-4.86); Red Cell Distribution Width 16.2 % (12.1-15.2)
[2024-03-07 20:41] LABS: Specific Gravity > 1.030 (1.005-1.030); Sqamous Epithelial <5 /HPF (None Seen); Urine Bacteria <20 /HPF (<20); Urine Bilirubin NEGATIVE (Negative); Urine Blood Negative (Negative); Urine Clarity Turbid (Clear); Urine Color Colorless (Yellow); Urine Culture Reflex Order REFLEXED; Urine Glucose 4+ (Over) (Negative); Urine Ketones NEGATIVE (Negative); Urine Microscopic Reflex YN ORDER UMIC; Urine Nitrite NEGATIVE (Negative); Urine Protein NEGATIVE (Negative); Urine RBC <5 /HPF (None Seen); Urine Urobilinogen Normal (Normal); Urine WBC >50 /HPF (<5); Urine pH 6.5 (5.0-7.0)
[2024-03-07 20:52] LABS: Albumin 3.6 g/dL (3.4-5.0); Albumin/Globulin Ratio 0.8 (1.1-1.8); Bilirubin Total 0.2 mg/dL (0.2-1.0); Globulin 4.4 g/dL (2.3-3.5)
[2024-03-07] MEDS ORDERED: CEFTRIAXONE 1000 MG/VIAL ONE (21:40)
[2024-03-07] MEDS ORDERED: NA CHLORIDE 0.9% 50 ML ONE (21:40)
[2024-03-07 21:55] LABS: Specific Gravity > 1.030 (1.005-1.030)
--- NOTE | 2024-03-07 21:56 | RAD REPORT ---
EXAM DESCRIPTION: CTAbdomen Pelvis W Contrast - 03/07/2024 9:41 pm CLINICAL HISTORY: R flank pain COMPARISON: Abdomen Pelvis W Contrast dated 11/15/2023; Abdomen Pelvis W Contrast dated 11/27/2022; Abdomen Pelvis W Contrast dated 11/24/2022; Abdomen Pelvis W Contrast dated 11/07/2022 TECHNIQUE: CT of the abdomen and pelvis was performed. All CT scans are performed using dose optimization technique as appropriate and may include automated exposure control or mA/KV adjustment according to patient size. FINDINGS: Lower chest: No acute abnormality. Liver: I steatosis Biliary: No biliary ductal dilatation. Stomach: No significant focal abnormality. Duodenum: No significant focal abnormality. Pancreas: No significant abnormality. Spleen: No significant abnormality. Adrenal: No suspicious lesions. Kidney/ureter: No hydronephrosis. No renal calculi. Left renal scarring. Chronic left urothelial thic kening. Retroperitoneum: No retroperitoneal adenopathy. Vascular: No aneurysm. Bowel: Normal appendix.. Peritoneum: No ascites or free air. Bladder: Grossly unremarkable. Reproductive: Corpus luteal cyst in the right ovary. Bones: No acute fracture. Other: n/a IMPRESSION: No acute intra-abdominal or pelvic finding. Normal appendix. Corpus luteum in the right ovary could be a source of pain. No renal or ureteral calculi.
[2024-03-08] MEDS ORDERED: KETOROLAC 30 MG/ML INJ ONE (00:29)
--- NOTE | 2024-03-08 01:38 | ER ---
Nurse's Notes [facility] Name: Tati Oliveros Age: 43 yrs Sex: Female : 1980 Arrival Date: 03/07/2024 Time: 19:18 Bed 8 Private MD: Diagnosis: UTI/ Urinary tract infection, site not specified Presentation: 03/07 19:46 Chief complaint: Patient states: right sided flank pain that started Friday and pain as6 has increased today. Coronavirus screen: At this time, the client does not indicate any symptoms associated with coronavirus-19. Ebola Screen: No symptoms or risks identified at this time. Initial Sepsis Screen: Does the patient meet any 2 criteria? No. Patient's initial sepsis screen is negative. Does the patient have a suspected source of infection? No. Patient's initial sepsis screen is negative. Risk Assessment: Do you want to hurt yourself or someone else? Patient reports no desire to harm self or others. Onset of symptoms was March 05, 2024. 19:46 Method Of Arrival: Ambulatory as6 19:46 Acuity: NICK 3 as6 Historical: - Allergies: 19:48 No Known Allergies; as6 - PMHx: 19:48 Diabetes - NIDDM; Kindey problems (kidney stent); Hypertension; as6 - PSHx: 19:48 ectopic sx; kidney stent; as6 - Immunization history:: Adult Immunizations up to date. - Infectious Disease History:: Denies. - Social history:: Smoking status: Patient denies any tobacco usage or history of. Screenin:29 [facility] ED Fall Risk Assessment (Adult) History of falling in the last 3 months, bm8 including since admission No falls in past 3 months (0 pts) Confusion or Disorientation No (0 pts) Intoxicated or Sedated No (0 pts) Impaired Gait No (0 pts) Mobility Assist Device Used No (0 pt) Altered Elimination No (0 pt) Score/Fall Risk Level 0 - 2 = Low Risk Oriented to surroundings, Maintained a safe environment, Educated pt \\T\\ family on fall prevention, incl call for assistance when getting out of bed. Abuse screen: Denies threats or abuse. Nutritional screening: No deficits noted. Tuberculosis screening: No symptoms or risk factors identified. Assessment: 20:29 Reassessment: pt also reports pain in hands and bumps on feet causing pain when bm8 walking. General: Appears in no apparent distress. uncomfortable, Behavior is calm, cooperative, appropriate for age. Pain: Complains of pain in right mid back Pain radiates to suprapubic area Pain currently is 10 out of 10 on a pain scale. Neuro: No deficits noted. Level of Consciousness is awake, alert, obeys commands, Oriented to person, place, time, situation. Cardiovascular: No deficits noted. Capillary refill < 3 seconds Patient's skin is warm and dry. Respiratory: Airway is patent Trachea midline Respiratory effort is even, unlabored, Respiratory pattern is regular, symmetrical. GI: Abdomen is flat, non-distended. : Urine is cloudy, Reports burning with urination, cramping, pain in right flank(s), with urination, Pain is 10 out of 10 on a pain scale. urgency. 03/08 00:14 Reassessment: Patient appears in no apparent distress at this time. Patient and/or bm8 family updated on plan of care and expected duration. Pain level reassessed. Patient is alert, oriented x 3, equal unlabored respirations, skin warm/dry/pink. pt reports that pain has returned informed provider awaiting new orders. Pain: Complains of pain in suprapubic area and back. 01:55 Reassessment: Patient appears in no apparent distress at this time. Patient and/or jb4 family updated on plan of care and expected duration. Pain level reassessed. Patient is alert, oriented x 3, equal unlabored respirations, skin warm/dry/pink. Vital Signs: 03/07 19:46 BP 175 / 95; Pulse 90; Resp 18 S; Temp 98.1(O); Pulse Ox 98% on R/A; Weight 54.43 kg as6 (R); Height 4 ft. 11 in. (R); Pain 9/10; 20:29 BP 206 / 91; Pulse 81; Resp 17; Temp 98.1; Pulse Ox 100% ; Pain 10/10; bm8 21:07 BP 177 / 92; ec2 03/08 00:14 BP 153 / 79; Pulse 76; Resp 17; Temp 98.2; Pulse Ox 100% ; Pain 7/10; bm8 03/07 19:46 Body Mass Index 24.24 (54.43 kg, 149.86 cm) as6 03/07 19:46 Pain Scale: Adult as6 20:29 Pain Scale: Adult bm8 03/08 00:14 Pain Scale: Adult bm8 Nikolas Coma Score: 03/07 20:29 Eye Response: spontaneous(4). Motor Response: obeys commands(6). Verbal Response: bm8 oriented(5). Total: 15. 03/08 00:14 Eye Response: spontaneous(4). Motor Response: obeys commands(6). Verbal Response: bm8 oriented(5). Total: 15. ED Course: 03/07 19:23 Patient arrived in ED. gm2 19:25 Jasson Morris MD is Attending Physician. ec2 19:46 Arm band placed on. as6 19:48 Triage completed. as6 19:53 Gordon Husain, RN is Primary Nurse. bm8 20:27 CBC with Diff Sent. bc6 20:27 CMP Sent. bc6 20:27 Lipase Sent. bc6 20:27 Urinalysis w/ reflexes Sent. bc6 20:27 Initial lab(s) drawn, by me, sent to lab. Urine collected: clean catch specimen. bc6 Inserted saline lock: 22 gauge in right forearm, using aseptic technique. Blood collected. 20:29 Patient has correct armband on for positive identification. Bed in low position. Call bm8 light in reach. Side rails up X 1. Adult w/ patient. Client placed on continuous cardiac and pulse oximetry monitoring. NIBP monitoring applied. Pulse ox on. NIBP on. Door closed. Noise minimized. Visitors limited. Warm blanket given. Verbal reassurance given. Head of bed elevated. 20:29 No provider procedures requiring assistance completed. bm8 21:30 First set of blood cultures drawn by me. bc6 21:43 CT Abd/Pelvis - IV Contrast Only In Process Unspecified. EDMS 03/08 01:55 Provided Education on: discharge instructions. jb4 01:55 IV discontinued, intact, bleeding controlled, No redness/swelling at site. Pressure jb4 dressing applied. Administered Medications: 03/07 20:32 Drug: NS 0.9% IV 1000 ml IV at 1 bolus Per protocol; 1000 mL bolus Route: IV; Rate: 1 bm8 bolus; Site: right forearm; 03/08 01:40 Follow up: Response: No adverse reaction; IV Status: Completed infusion; IV Intake: bm8 1000ml 03/07 20:32 Drug: TORadol - Ketorolac IVP 15 mg IVP once Route: IVP; Site: right forearm; bm8 03/08 00:17 Follow up: Response: No adverse reaction [facility] 03/07 20:32 Drug: Ondansetron IVP 4 mg IVP once; over 2 minutes Route: IVP; Site: right forearm; 8 03/08 00:16 Follow up: Response: No adverse reaction [facility] 03/07 20:32 Drug: morphine IVP or IV 4 mg IVP once over 4 mins Route: IVP; Infused Over: 4 mins; bm8 Site: right forearm; 03/08 00:17 Follow up: Response: No adverse reaction 8 03/07 21:45 Drug: Rocephin IV 1 grams IV at calculated rate once; Given slow IV push per pharmacy bm8 instructions Route: IV; Rate: calculated rate; Site: right antecubital; 23:25 Follow up: Response: No adverse reaction; IV Status: Infusion continued; IV Intake: [id number] 03/08 00:16 Follow up: Response: No adverse reaction; IV Status: Completed infusion 8 03/07 23:25 Drug: NS 0.9% IV 1000 ml IV at 1 bolus Per protocol; 1000 mL bolus Route: IV; Rate: 1 bm8 bolus; Site: right forearm; 03/08 00:16 Follow up: Response: No adverse reaction; IV Status: Completed infusion; IV Intake: bm8 1000ml 00:39 Drug: Ketorolac IVP 15 mg IVP once Route: IVP; Site: right antecubital; bm8 00:40 Follow up: Response: No adverse reaction bm8 Medication: 03/07 20:29 VIS not applicable for this client. bm8 Intake: 23:25 IV: 50ml; Total: 50ml. bm8 03/08 00:16 IV: 1000ml; Total: 1050ml. bm8 01:40 IV: 1000ml; Total: 2050ml. bm8 Outcome: 01:38 Discharge ordered by . ec2 01:55 Discharged to home ambulatory, jb4 01:55 Condition: stable 01:55 Discharge instructions given to patient, Instructed on discharge instructions, follow up and referral plans. Demonstrated understanding of instructions, follow-up care, 01:56 Patient left the ED. jb4 Signatures: Dispatcher [employer] Tommy Soriano, RN RN jb4 Preston Romano, KADY RN as6 Rosetta Montes 6 Jasson Morris MD MD 2 Ani Kramer 2 Gordon Husain, RN RN bm8 Corrections: (The following items were deleted from the chart) 03/07 19:48 19:48 PMHx: "Kidney problems" (kidney stent); as6 as6 22:24 22:22 One-on-one care X 60 minutes bm8 bm8 22:24 22:22 Bath given. Cleaned of incontinence. Linen changed. bm8 bm8
--- NOTE | 2024-03-08 01:39 | EDPHYS ---
Physician Documentation [facility] Name: Tati Oliveros Age: 43 yrs Sex: Female : 1980 Arrival Date: 03/07/2024 Time: 19:18 Bed 8 Private MD: ED Physician Jasson Morris HPI: 03/07 20:05 This 43 yrs old Female presents to ER via Ambulatory with complaints of Low ec2 Back Pain. 20:05 Patient arrives today for evaluation of right flank pain. Patient planing of flank ec2 pain, states pain has been constant for the past several days. Patient reports history of what sounds like pyelonephritis. This some nausea, no vomiting, no diarrhea. Patient also with complaints of increased urinary frequency and dysuria.. Historical: - Allergies: 19:48 No Known Allergies; as6 - PMHx: 19:48 Diabetes - NIDDM; Kindey problems (kidney stent); Hypertension; as6 - PSHx: 19:48 ectopic sx; kidney stent; as6 - Immunization history:: Adult Immunizations up to date. - Infectious Disease History:: Denies. - Social history:: Smoking status: Patient denies any tobacco usage or history of. ROS: 20:05 Constitutional: as per hpi ec2 Exam: 20:05 Constitutional: GEN: NAD Head: atraumatic Eyes: EOMI Ears: External ears are ec2 normal. CV: regular rate LUNGS: no respiratory distress ABD: non-distended, soft, generally tender, right CVA TTP. SKIN: no evidence of rashes MSK: no evidence of trauma NEURO: moves all extremities equally Vital Signs: 19:46 BP 175 / 95; Pulse 90; Resp 18 S; Temp 98.1(O); Pulse Ox 98% on R/A; Weight 54.43 kg as6 (R); Height 4 ft. 11 in. (R); Pain 9/10; 20:29 BP 206 / 91; Pulse 81; Resp 17; Temp 98.1; Pulse Ox 100% ; Pain 10/10; bm8 21:07 BP 177 / 92; ec2 03/08 00:14 BP 153 / 79; Pulse 76; Resp 17; Temp 98.2; Pulse Ox 100% ; Pain 7/10; bm8 03/07 19:46 Body Mass Index 24.24 (54.43 kg, 149.86 cm) as6 03/07 19:46 Pain Scale: Adult as6 20:29 Pain Scale: Adult bm8 03/08 00:14 Pain Scale: Adult bm8 Nikolas Coma Score: 03/07 20:29 Eye Response: spontaneous(4). Motor Response: obeys commands(6). Verbal Response: bm8 oriented(5). Total: 15. 03/08 00:14 Eye Response: spontaneous(4). Motor Response: obeys commands(6). Verbal Response: bm8 oriented(5). Total: 15. MDM: 03/07 19:25 Patient medically screened. ec2 20:05 Data reviewed: vital signs. ED course: Patient arrives today for evaluation of right ec2 flank pain. Examination remarkable for abdominal findings as above. Will obtain lab work, urine studies, CT scan of the abdomen pelvis. Differential diagnosis include processes such as pyelonephritis, urinary tract infection, ureteral stone.. 20:43 ED course: Urine is turbid appearing, does have WBC and leuk esterase present. Will ec2 send a culture and empirically treat with antibiotic coverage. . 21:04 ED course: CBC shows slight anemia with hemoglobin of 11.3. Metabolic profile shows ec2 renal dysfunction with a creatinine of 1.15 and GFR of 60. Lipase within normal ranges. Pending CT imaging. . 22:00 ED course: Lactic acid elevated 2.6. CT abdomen pelvis shows no acute intra-abdominal ec2 process. Will give the patient additional crystalloid. . 22:12 ED course: On reassessment patient with marked improvement in her pain. Will give the ec2 patient additional crystalloid and repeat lactic. Had initial conversation regarding admission however patient states that she feels remarkably better and will consider outpatient management.. 03/08 01:38 ED course: Repeat lactic acid within normal ranges. On reassessment patient is ec2 well-appearing no acute distress before discharge home. Instructed on [id number] medications and will start patient on antibiotics. I offered the patient patient mission but ultimately we decided to trial outpatient. Return precautions given . 03/07 20:05 Order name: CBC with Diff; Complete Time: 21:04 ec2 03/07 20:05 Order name: CMP; Complete Time: 21:04 ec2 03/07 20:05 Order name: Lipase; Complete Time: 21:04 2 03/07 20:05 Order name: Urinalysis w/ reflexes; Complete Time: 20:42 2 03/07 20:43 Order name: Blood Culture Adult (2) 2 03/07 20:43 Order name: Lactate w/ 2H reflex if indic.; Complete Time: 22:00 2 03/07 20:44 Order name: Urine Culture [facility] 03/07 21:35 Order name: Test, Urine; Complete Time: 22:00 [facility] 03/08 01:25 Order name: Lactate Sepsis 2 HR Follow-up; Complete Time: 01:38 EDOK 03/07 20:05 Order name: CT Abd/Pelvis - IV Contrast Only; Complete Time: 22:00 2 03/07 20:05 Order name: IV Saline Lock; Complete Time: 20:27 2 03/07 20:05 Order name: Labs collected and sent; Complete Time: 20:27 2 03/07 22:17 Order name: Misc. Order: repeat lactic after completion of 2nd liter of fluid; Complete ec2 Time: 01:40 Administered Medications: 03/07 20:32 Drug: NS 0.9% IV 1000 ml IV at 1 bolus Per protocol; 1000 mL bolus Route: IV; Rate: 1 bm8 bolus; Site: right forearm; 03/08 01:40 Follow up: Response: No adverse reaction; IV Status: Completed infusion; IV Intake: bm8 1000ml 03/07 20:32 Drug: TORadol - Ketorolac IVP 15 mg IVP once Route: IVP; Site: right forearm; 8 03/08 00:17 Follow up: Response: No adverse reaction [facility] 03/07 20:32 Drug: Ondansetron IVP 4 mg IVP once; over 2 minutes Route: IVP; Site: right forearm; bm8 03/08 00:16 Follow up: Response: No adverse reaction [facility] 03/07 20:32 Drug: morphine IVP or IV 4 mg IVP once over 4 mins Route: IVP; Infused Over: 4 mins; bm8 Site: right forearm; 03/08 00:17 Follow up: Response: No adverse reaction [facility] 03/07 21:45 Drug: Rocephin IV 1 grams IV at calculated rate once; Given slow IV push per pharmacy bm8 instructions Route: IV; Rate: calculated rate; Site: right antecubital; 23:25 Follow up: Response: No adverse reaction; IV Status: Infusion continued; IV Intake: [id number] 03/08 00:16 Follow up: Response: No adverse reaction; IV Status: Completed infusion bm8 03/07 23:25 Drug: NS 0.9% IV 1000 ml IV at 1 bolus Per protocol; 1000 mL bolus Route: IV; Rate: 1 bm8 bolus; Site: right forearm; 03/08 00:16 Follow up: Response: No adverse reaction; IV Status: Completed infusion; IV Intake: bm8 1000ml 00:39 Drug: Ketorolac IVP 15 mg IVP once Route: IVP; Site: right antecubital; bm8 00:40 Follow up: Response: No adverse reaction bm8 Disposition Summary: 03/08/24 01:38 Discharge Ordered Notes: Location: Home ec2 Condition: Stable ec2 Diagnosis - UTI/ Urinary tract infection, site not specified ec2 Followup: ec2 - With: Private Physician - When: - Reason: Re-evaluation by your physician Discharge Instructions: - Discharge Summary Sheet ec2 - Urinary Tract Infection, Adult, [id number] ec2 Forms: - Medication Reconciliation Form ec2 - Antibiotic Education ec2 - Prescription Opioid Use ec2 - Patient Portal Instructions ec2 - Leadership Thank You Letter ec2 Prescriptions: - Cephalexin 500 mg Oral capsule - take 1 capsule ORAL route every 12 hours for 5 days; 10 capsule; Refills: 0, ec2 Product Selection Permitted Signatures: Dispatcher [employer] EDOK Preston Romano RN RN as6 Jasson Morris MD MD ec2 Gordon Husain RN RN bm8 Corrections: (The following items were deleted from the chart) 03/07 19:48 19:48 PMHx: "Kidney problems" (kidney stent); as6 as6 20:44 20:44 BLOOD CULTURE*+BA.LAB.BRZ ordered. EDOK EDMS 20:44 20:44 LACTATE+C.LAB.BRZ ordered. EDOK EDMS 03/08 01:13 01:13 LACTATE+C.LAB.BRZ ordered. EDOK EDMS
[2024-03-08 02:15] VITALS: BP 153/79; TEMP 98.2; O2SAT 100
== END 2024-03-08 01:56 | disposition home or self-care (01) ==
LOC: ER 19:18
DX: N39.0 Urinary tract infection, site not specified (principal)
CPT/HCPCS: 87040 ×2; 87088; 85025; 81001; 87086; 36415; 81025; 83605 ×2; 83690; 80053; 74177; 99284; Q9967; J2405; J7030 ×2; J0696

== ENCOUNTER 2024-07-30 22:38 | Emergency (ER) | payer OTHER ==
[2024-07-30] MEDS ORDERED: METHYLPREDNISOLONE 125 MG INJ ONE (23:04)
[2024-07-30] MEDS ORDERED: DIPHENHYDRAMINE 50 MG/ML VIAL ONE (23:04)
[2024-07-30] MEDS ORDERED: FAMOTIDINE 20 MG/2 ML VIAL IV ONE (23:05)
[2024-07-30] MEDS ORDERED: NA CHLORIDE 0.9% 1,000 ML ONE (23:05)
--- NOTE | 2024-07-31 00:59 | ER ---
Nurse's Notes [facility] Name: Tati Oliveros Age: 43 yrs Sex: Female : 1980 Arrival Date: 07/30/2024 Time: 22:38 Bed 8 Private MD: Diagnosis: Acute Allergic Reaction, Acute Allergic Hives Presentation: 07/30 22:46 Chief complaint: Patient states: sudden onset of rash to chest and face. vc1 22:46 Coronavirus screen: Client denies travel out of the [place] in the last 14 days. At this vc1 time, the client does not indicate any symptoms associated with coronavirus-19. Ebola Screen: Patient negative for fever greater than or equal to 101.5 degrees Fahrenheit, and additional compatible Ebola Virus Disease symptoms Patient denies exposure to infectious person. Patient denies travel to an Ebola-affected area in the 21 days before illness onset. No symptoms or risks identified at this time. Onset: The symptoms/episode began/occurred suddenly. Anaphylaxis evaluation, no signs or symptoms of anaphylaxis were noted. Initial Sepsis Screen: Does the patient meet any 2 criteria? HR > 90 bpm. No. Patient's initial sepsis screen is negative. Does the patient have a suspected source of infection? No. Patient's initial sepsis screen is negative. Risk Assessment: Do you want to hurt yourself or someone else? Patient reports no desire to harm self or others. Onset of symptoms was July 30, 2024 at 21:45. 22:46 Method Of Arrival: Ambulatory vc1 22:46 Acuity: NICK 4 vc1 Triage Assessment: 22:46 General: Appears in no apparent distress. uncomfortable, well groomed, well developed, vc1 Behavior is cooperative, anxious. Pain: Denies pain. EENT: No deficits noted. No signs and/or symptoms were reported regarding the EENT system. Neuro: Level of Consciousness is awake, alert, obeys commands, Oriented to person, place, time, situation, Appropriate for age. Cardiovascular: Heart tones S1 S2 present Capillary refill < 3 seconds Patient's skin is warm and dry. Respiratory: Airway is patent Respiratory effort is even, unlabored, Respiratory pattern is regular, symmetrical, Breath sounds are clear bilaterally. GI: Abdomen is flat, non-distended. : No deficits noted. No signs and/or symptoms were reported regarding the genitourinary system. Derm: Skin is intact, is healthy with good turgor, Skin is dry, Skin is normal, Rash noted that is itchy, red, raised, urticaria, on face and chest. Musculoskeletal: No deficits noted. No signs and/or symptoms reported regarding the musculoskeletal system. Historical: - Allergies: 22:46 No Known Allergies; vc1 - PMHx: 22:46 Diabetes - NIDDM; Hypertension; Kindey problems (kidney stent); vc1 - PSHx: 22:46 ectopic sx; kidney stent; vc1 - Immunization history:: Client reports receiving the 2nd dose of the Covid vaccine. - Infectious Disease History:: Denies. - Social history:: Smoking status: Patient denies any tobacco usage or history of. - Family history:: not pertinent. Screenin/17 22:[address] [facility] ED Fall Risk Assessment (Adult) History of falling in the last 3 months, vc1 including since admission No falls in past 3 months (0 pts) Confusion or Disorientation No (0 pts) Intoxicated or Sedated No (0 pts) Impaired Gait No (0 pts) Mobility Assist Device Used No (0 pt) Altered Elimination No (0 pt) Score/Fall Risk Level 0 - 2 = Low Risk Oriented to surroundings, Maintained a safe environment, Educated pt \T\ family on fall prevention, incl call for assistance when getting out of bed. Abuse screen: Denies threats or abuse. Nutritional screening: No deficits noted. Tuberculosis screening: No symptoms or risk factors identified. Assessment: 07/30 23:57 Reassessment: Patient and/or family updated on plan of care and expected duration. Pain vc1 level reassessed. Patient states feeling better. Patient states symptoms have improved. Neuro: Real Agitation-Sedation Scale (RASS): -1 Drowsy Respiratory: Airway is patent Respiratory effort is even, unlabored, Respiratory pattern is regular, symmetrical, Breath sounds are clear bilaterally. 07/31 01:05 Reassessment: Patient appears in no apparent distress at this time. No changes from vc1 previously documented assessment. Patient and/or family updated on plan of care and expected duration. Pain level reassessed. Patient is alert, oriented x 3, equal unlabored respirations, skin warm/dry/pink. Neuro: Real Agitation-Sedation Scale (RASS): -1 Drowsy Level of Consciousness is awake, alert, obeys commands, Oriented to person, place, time, situation, Appropriate for age. Vital Signs: 07/30 22:46 BP 175 / 108; Pulse 99; Resp 19; Temp 98.1; Pulse Ox 100% ; Weight 57.15 kg; Height 5 vc1 ft. 1 in. ; Pain 0/10; 23:30 BP 183 / 98; Pulse 82; Resp 16; Pulse Ox 100% ; vc1 07/31 01:05 BP 159 / 95; Pulse 77; Resp 15; Pulse Ox 100% ; vc1 07/30 22:46 Body Mass Index 23.81 (57.15 kg, 154.94 cm) vc1 07/30 22:46 Pain Scale: Adult vc1 Nikolas Coma Score: 19:57 Eye Response: spontaneous(4). Motor Response: obeys commands(6). Verbal Response: sp4 oriented(5). Total: 15. ED Course: 07/30 22:40 Patient arrived in ED. jj6 22:45 Willy Edmond MD is Attending Physician. sp4 22:46 Arm band placed on right wrist. vc1 22:55 Inserted saline lock: 22 gauge in right antecubital area, using aseptic technique. kmf Flushed with 10 mL NS. 23:00 Elle Mcallister, RN is Primary Nurse. br2 23:00 Patient has correct armband on for positive identification. Bed in low position. Call vc1 light in reach. Pulse ox on. NIBP on. 23:35 Triage completed. vc1 07/31 01:06 No provider procedures requiring assistance completed. IV discontinued, intact, vc1 bleeding controlled, No redness/swelling at site. Pressure dressing applied. 01:06 Provided Education on: dont operate heavy machinery with benadryl. vc1 Administered Medications: 07/30 23:15 Drug: diphenhydrAMINE IVP 50 mg IVP once Route: IVP; Site: right antecubital; vc1 23:59 Follow up: Response: No adverse reaction; Marked relief of symptoms vc1 23:15 Drug: MethylPrednisoLONE IVP 125 mg IVP once Route: IVP; Site: right antecubital; vc1 23:59 Follow up: Response: No adverse reaction; Marked relief of symptoms vc1 23:15 Drug: Famotidine IVP 20 mg IVP once; dilute with 10 mL 0.9% NaCl; give over 2 minutes vc1 Route: IVP; Site: right antecubital; 23:59 Follow up: Response: No adverse reaction; Marked relief of symptoms vc1 23:15 Drug: NS 0.9% IV 1000 ml IV at 1000 ml once; to be given as a bolus over 60 minutes vc1 Route: IV; Rate: 1000 ml; Site: right antecubital; 07/31 01:11 Follow up: IV Status: Completed infusion; IV Intake: 1000ml vc1 Medication: 07/30 23:38 VIS not applicable for this client. vc1 Intake: 07/31 01:11 IV: 1000ml; Total: 1000ml. vc1 Outcome: 00:59 Discharge ordered by . sp4 01:06 Discharged to home ambulatory, with family, vc1 01:06 Condition: good 01:06 Discharge instructions given to patient, family, Instructed on discharge instructions, follow up and referral plans. medication usage, Demonstrated understanding of instructions, follow-up care, medications, Prescriptions given X 2, 01:11 Patient left the ED. vc1 Signatures: Pat Mccray jj6 Yenny Molina RN RN vc1 Willy Edmond MD MD sp4 Meenakshi Hannon Elle Woods RN RN br2
--- NOTE | 2024-07-31 00:59 | EDPHYS ---
Physician Documentation [facility] Name: Tati Oliveros Age: 43 yrs Sex: Female : 1980 Arrival Date: 07/30/2024 Time: 22:38 Bed 8 Private MD: ED Physician Willy Edmond HPI: 07/30 22:45 This 43 yrs old Female presents to ER via Unassigned with complaints of sp4 Allergic Reaction. 07/31 19:57 43-year-old female presents with complaint of generalized itching and hives after sp4 drinking water at the gym. Has history of diabetes. Historical: - Allergies: 07/30 22:46 No Known Allergies; vc1 - PMHx: 22:46 Diabetes - NIDDM; Hypertension; Kindey problems (kidney stent); vc1 - PSHx: 22:46 ectopic sx; kidney stent; vc1 - Immunization history:: Client reports receiving the 2nd dose of the Covid vaccine. - Infectious Disease History:: Denies. - Social history:: Smoking status: Patient denies any tobacco usage or history of. - Family history:: not pertinent. ROS: 07/31 19:57 Constitutional: Negative for fever, chills, and weight loss, Positive have diffuse sp4 rash itching and hives. All other systems are negative, Exam: 19:57 Constitutional: This is a well developed, well nourished patient who is awake, alert, sp4 and in no acute distress. Positive for Acute generalized hives and itching Head/Face: Normocephalic, atraumatic. Eyes: Pupils equal round and reactive to light, extra-ocular motions intact. Lids and lashes normal. Conjunctiva and sclera are not injected. Cornea within normal limits. Periorbital areas with no swelling, redness, or edema. ENT: Nares patent. No nasal discharge, no septal abnormalities noted. Tympanic membranes are normal and external auditory canals are clear. Oropharynx with no redness, swelling, or masses, exudates, or evidence of obstruction, uvula midline. Mucous membranes moist. Neck: Trachea midline, no thyromegaly or masses palpated, and no cervical lymphadenopathy. Supple, full range of motion without nuchal rigidity, or vertebral point tenderness. Chest/axilla: Normal chest wall appearance and motion. Nontender with no deformity. No lesions are appreciated. Cardiovascular: Regular rate and rhythm with a normal S1 and S2. No gallops, murmurs, or rubs. Normal PMI, no JVD. No pulse deficits. Respiratory: Lungs have equal breath sounds bilaterally, clear to auscultation and percussion. No rales, rhonchi or wheezes noted. No increased work of breathing, no retractions or nasal flaring. Abdomen/GI: Soft, with normal bowel sounds. No distension or tympany. No guarding or rebound. No evidence of tenderness throughout. Back: No spinal tenderness. No costovertebral tenderness. Skin: Warm, dry with normal turgor. Normal color with diffuse hives and pruritus generalized MS/ Extremity: Pulses equal, no cyanosis. Neurovascular intact. Full, normal range of motion. Neuro: Awake and alert, GCS 15, oriented to person, place, time, and situation. Cranial nerves II-XII grossly intact. Motor strength 5/5 in all extremities. Sensory grossly intact. Psych: Awake, alert, with orientation to person, place and time. Behavior, mood, and affect are within normal limits Vital Signs: 07/30 22:46 BP 175 / 108; Pulse 99; Resp 19; Temp 98.1; Pulse Ox 100% ; Weight 57.15 kg; Height 5 vc1 ft. 1 in. ; Pain 0/10; 23:30 BP 183 / 98; Pulse 82; Resp 16; Pulse Ox 100% ; vc1 07/31 01:05 BP 159 / 95; Pulse 77; Resp 15; Pulse Ox 100% ; vc1 07/30 22:46 Body Mass Index 23.81 (57.15 kg, 154.94 cm) vc1 07/30 22:46 Pain Scale: Adult vc1 [place] Coma Score: 19:57 Eye Response: spontaneous(4). Motor Response: obeys commands(6). Verbal Response: sp4 oriented(5). Total: 15. MDM: 07/30 22:48 Medical Screening Exam initiated sp4 07/31 19:57 Differential diagnosis: anaphylaxis, angioedema, bronchospasm, Epiglottis Status sp4 Asthmaticus. Data reviewed: vital signs, nurses notes, lab test result(s). ED course: Patient's exam consistent with acute generalized hives secondary to allergen exposure. Patient Has improved and is stable for discharge home. 07/31 00:29 Order name: Glucose, Ancillary Testing; Complete Time: 00:57 EDMS 07/30 22:48 Order name: Saline Lock; Complete Time: 22:55 sp4 Administered Medications: 07/30 23:15 Drug: diphenhydrAMINE IVP 50 mg IVP once Route: IVP; Site: right antecubital; vc1 23:59 Follow up: Response: No adverse reaction; Marked relief of symptoms vc1 23:15 Drug: MethylPrednisoLONE IVP 125 mg IVP once Route: IVP; Site: right antecubital; vc1 23:59 Follow up: Response: No adverse reaction; Marked relief of symptoms vc1 23:15 Drug: Famotidine IVP 20 mg IVP once; dilute with 10 mL 0.9% NaCl; give over 2 minutes vc1 Route: IVP; Site: right antecubital; 23:59 Follow up: Response: No adverse reaction; Marked relief of symptoms vc1 23:15 Drug: NS 0.9% IV 1000 ml IV at 1000 ml once; to be given as a bolus over 60 minutes vc1 Route: IV; Rate: 1000 ml; Site: right antecubital; 07/31 01:11 Follow up: IV Status: Completed infusion; IV Intake: 1000ml vc1 Disposition: 20:04 Chart complete. sp4 Disposition Summary: 07/31/24 00:59 Discharge Ordered Notes: Location: Home sp4 Problem: new sp4 Symptoms: have improved sp4 Condition: Stable sp4 Diagnosis - Acute Allergic Reaction, Acute Allergic Hives sp4 Followup: sp4 - With: Private Physician - When: 7 - 10 days - Reason: Recheck today's complaints Discharge Instructions: - Discharge Summary Sheet sp4 - Hives, [id number] sp4 Forms: - Patient Portal Instructions sp4 Prescriptions: - Benadryl 25 mg Oral capsule - take 2 capsule ORAL route every 8 hours As needed PRN itching; 30 tablet; sp4 Refills: 0, Product Selection Permitted - Prednisone 20 mg Oral Tablet - take 2 tablets ORAL route once daily for 5 days; 10 tablet; Refills: 0, Product sp4 Selection Permitted Signatures: [facility] Yenny Molina RN RN vc1 Willy Edmond MD MD sp4 Corrections: (The following items were deleted from the chart) 07/30 22:54 22:54 BASIC METABOLIC PANEL+C.MP ordered. EDMS EDMS
[2024-07-31 06:59] VITALS: TEMP 98.1; O2SAT 100
[2024-07-31 07:15] VITALS: BP 159/95
== END 2024-07-31 01:11 | disposition home or self-care (01) ==
LOC: ER 22:38
DX: L50.0 Allergic urticaria (principal)
CPT/HCPCS: 96361; 82947; 96375; 96374; 99284; J1200; J2919; J7030

== ENCOUNTER 2024-08-05 23:20 | Emergency (ER) | payer OTHER ==
[2024-08-05] MEDS ORDERED: METHYLPREDNISOLONE 125 MG INJ ONE (23:56)
[2024-08-05] MEDS ORDERED: FAMOTIDINE 20 MG/2 ML VIAL IV ONE (23:57)
[2024-08-05] MEDS ORDERED: NA CHLORIDE 0.9% 1,000 ML ONE (23:57)
[2024-08-05] MEDS ORDERED: DIPHENHYDRAMINE 50 MG/ML VIAL ONE (23:57)
[2024-08-06 00:19] LABS: Absolute Eosinophils 0.2 K/uL (0-0.5); Absolute Lymphocytes (CBC) 2.1 K/uL (0.7-4.9); Absolute Monocytes 0.6 K/uL (0.1-1.3); Absolute Neutrophil 5.4 K/uL (1.8-8.0); Basophils % 0.4 % (0-1.3); Eosinophils % 1.8 % (0-4.4); Hematocrit 38.2 % (36.0-45.0); Hemoglobin 12.8 g/dL (12.0-15.0); Lymphocytes % 25.1 % (15.3-44.8); MCH 26.4 pg (27.0-35.0); MCHC 33.4 g/dL (32.0-36.0); MCV 78.9 fL (80-100); MPV 10.1 fL (7.6-11.3); Monocytes % 6.7 % (3.3-12.3); Nucleated Red Blood Cells % 0.1 % (0-0); Platelets 215 thou/uL (152-406); RBC Red Blood Cell Count 4.85 M/uL (3.86-4.86); Red Cell Distribution Width 15.9 % (12.1-15.2)
[2024-08-06 00:22] LABS: Anion Gap 10.4 mEq/L (5.0-15.0); BUN Blood Urea Nitrogen 19 mg/dL (7-18); Bicarbonate 25 mEq/L (21-32); Glomerular Filtration Rate 75 ml/min (=/>90); Glucose Level 179 mg/dL (74-106); Potassium 3.4 mEq/L (3.5-5.1); Sodium Level 134 mEq/L (136-145)
[2024-08-06 00:34] LABS: C-Reactive Protein < 2.90 mg/L (<3.00)
--- NOTE | 2024-08-06 04:09 | EDPHYS ---
Physician Documentation [facility] Name: Tati Oliveros Age: 43 yrs Sex: Female : 1980 Arrival Date: 08/05/2024 Time: 23:20 Bed 14 Private MD: ED Physician Willy Edmond HPI: 08/06 04:10 This 43 yrs old Female presents to ER via Ambulatory with complaints of sp4 Allergic Reaction, Facial Swelling. 20:22 43-year-old female presents with complaint of facial swelling and acute sp4 allergic reaction.. Historical: - Allergies: 08/05 23:29 No Known Allergies; ha1 - PMHx: 23:29 Diabetes - NIDDM; Hypertension; Kindey problems (kidney stent); ha1 - PSHx: 23:29 ectopic sx; kidney stent; ha1 - Immunization history:: Adult Immunizations up to date. - Infectious Disease History:: Denies. - Social history:: Smoking status: Patient denies any tobacco usage or history of. - Family history:: not pertinent. ROS: 08/06 20:22 Constitutional: Negative for fever, chills, and weight loss, positive for facial sp4 itching. All other systems are negative, Exam: 20:22 Constitutional: This is a well developed, well nourished patient who is awake, alert, sp4 and in no acute distress. Head/Face: Normocephalic, atraumatic. Eyes: Pupils equal round and reactive to light, extra-ocular motions intact. Lids and lashes normal. Conjunctiva and sclera are not injected. Cornea within normal limits. Periorbital areas with no swelling, redness, or edema. ENT: Nares patent. No nasal discharge, no septal abnormalities noted. Tympanic membranes are normal and external auditory canals are clear. Oropharynx with no redness, swelling, or masses, exudates, or evidence of obstruction, uvula midline. Mucous membranes moist. Neck: Trachea midline, no thyromegaly or masses palpated, and no cervical lymphadenopathy. Supple, full range of motion without nuchal rigidity, or vertebral point tenderness. Chest/axilla: Normal chest wall appearance and motion. Nontender with no deformity. No lesions are appreciated. Cardiovascular: Regular rate and rhythm with a normal S1 and S2. No gallops, murmurs, or rubs. Normal PMI, no JVD. No pulse deficits. Respiratory: Lungs have equal breath sounds bilaterally, clear to auscultation and percussion. No rales, rhonchi or wheezes noted. No increased work of breathing, no retractions or nasal flaring. Abdomen/GI: Soft, with normal bowel sounds. No distension or tympany. No guarding or rebound. No evidence of tenderness throughout. Back: No spinal tenderness. No costovertebral tenderness. Skin: Warm, dry with normal turgor. Normal color with no rashes, no lesions, and no evidence of cellulitis. MS/ Extremity: Pulses equal, no cyanosis. Neurovascular intact. Full, normal range of motion. Neuro: Awake and alert, GCS 15, oriented to person, place, time, and situation. Cranial nerves II-XII grossly intact. Motor strength 5/5 in all extremities. Sensory grossly intact. Psych: Awake, alert, with orientation to person, place and time. Behavior, mood, and affect are within normal limits Vital Signs: 08/05 23:26 BP 162 / 97; Pulse 94; Resp 17 S; Temp 97.9(T); Pulse Ox 98% on R/A; Weight 56.7 kg; ha1 Height 4 ft. 11 in. ; 23:41 BP 146 / 97; Pulse 88; Resp 12; Temp 98.6; Pulse Ox 100% on R/A; Weight 58.06 kg; ty Height 4 ft. 11 in. ; Pain 5/10; 08/06 01:00 BP 175 / 91; Pulse 84; Resp 17; Pulse Ox 98% ; jj7 02:00 BP 169 / 93; Pulse 86; Resp 16; Pulse Ox 99% ; jj7 03:00 BP 170 / 89; Pulse 81; Resp 17; Pulse Ox 98% ; jj7 04:23 BP 165 / 86; Pulse 79; Resp 17; Temp 97.8; Pulse Ox 98% ; jj7 08/05 23:41 Body Mass Index 25.85 (58.06 kg, 149.86 cm) ty 23:41 Pain Scale: Adult ty MDM: 08/05 23:39 Medical Screening Exam initiated sp4 08/06 20:22 Differential diagnosis: anaphylaxis, angioedema, Arrhythmias. Data reviewed: vital sp4 signs, nurses notes, lab test result(s). ED course: Patient improved after medications. Stable for discharge home.. 08/05 23:38 Order name: BMP; Complete Time: 02:14 sp4 08/05 23:38 Order name: CBC with Diff; Complete Time: 02:14 sp4 08/06 00:15 Order name: C-Reactive Protein; Complete Time: 02:14 EDMS 08/05 23:38 Order name: Saline Lock; Complete Time: 00:05 sp4 Administered Medications: 00:04 Drug: NS 0.9% IV 1000 ml IV at 1 bolus Per protocol; to be given as a bolus over 60 jj7 minutes Route: IV; Rate: 1 bolus; Site: right antecubital; 01:04 Follow up: Response: Marked relief of symptoms jj7 01:04 Follow up: IV Status: Completed infusion jj7 00:05 Drug: MethylPrednisoLONE IVP 125 mg IVP once Route: IVP; Site: right antecubital; jj7 01:04 Follow up: Response: Marked relief of symptoms jj7 00:05 Drug: Famotidine IVP 20 mg IVP once; dilute with 10 mL 0.9% NaCl; give over 2 minutes jj7 Route: IVP; Site: right antecubital; 01:04 Follow up: Response: Marked relief of symptoms jj7 00:05 Drug: diphenhydrAMINE IVP 50 mg IVP once Route: IVP; Site: right antecubital; jj7 01:03 Follow up: Response: Marked relief of symptoms jj7 Disposition: 20:23 Chart complete. sp4 Disposition Summary: 08/06/24 04:09 Discharge Ordered Notes: Location: Home sp4 Problem: new sp4 Symptoms: have improved sp4 Condition: Stable sp4 Diagnosis - Acute allergic reaction, acute generalized pruritis sp4 Followup: sp4 - With: Esdras Cage DO - When: 7 - 10 days - Reason: Recheck today's complaints Discharge Instructions: - Discharge Summary Sheet sp4 - Allergies, Adult, [id number] sp4 Forms: - Family Work Release ha1 - Patient Portal Instructions sp4 Prescriptions: - Benadryl 25 mg Oral capsule - take 2 capsule ORAL route every 8 hours As needed; 30 tablet; Refills: 0, sp4 Product Selection Permitted - Prednisone 20 mg Oral Tablet - take 2 tablets ORAL route once daily for 5 days; 10 tablet; Refills: 0, Product sp4 Selection Permitted Signatures: Dispatcher [employer] Joy Nam RN RN ha1 Claude De Paz RN RN jj7 Willy Edmond MD MD sp4 Corrections: (The following items were deleted from the chart) 00:15 08/05 23:47 C-REACTIVE PROTEIN+C.LAB.BRZ ordered. EDPA EDPA
--- NOTE | 2024-08-06 04:09 | ER ---
Nurse's Notes [facility] Name: Tati Oliveros Age: 43 yrs Sex: Female : 1980 Arrival Date: 08/05/2024 Time: 23:20 Bed 14 Private MD: Diagnosis: Acute allergic reaction, acute generalized pruritis Presentation: 08/05 23:26 Chief complaint: Patient states: I feel that my face is getting swollen, I finished my ha1 prescribed medication for the allergies yesterday and today suddenly it started to happen again. 23:26 Coronavirus screen: Vaccine status: Patient reports being unvaccinated. Ebola Screen: ha1 No symptoms or risks identified at this time. Onset: The symptoms/episode began/occurred suddenly. Anaphylaxis evaluation. Initial Sepsis Screen: Does the patient meet any 2 criteria? No. Patient's initial sepsis screen is negative. Does the patient have a suspected source of infection? No. Patient's initial sepsis screen is negative. Risk Assessment: Do you want to hurt yourself or someone else? Patient reports no desire to harm self or others. Onset of symptoms was August 05, 2024. 23:26 Method Of Arrival: Ambulatory ha1 23:26 Acuity: NICK 3 ha1 Historical: - Allergies: 23:29 No Known Allergies; ha1 - PMHx: 23:29 Diabetes - NIDDM; Hypertension; Kindey problems (kidney stent); ha1 - PSHx: 23:29 ectopic sx; kidney stent; ha1 - Immunization history:: Adult Immunizations up to date. - Infectious Disease History:: Denies. - Social history:: Smoking status: Patient denies any tobacco usage or history of. - Family history:: not pertinent. Screenin:30 [facility] ED Fall Risk Assessment (Adult) History of falling in the last 3 months, ha1 including since admission No falls in past 3 months (0 pts) Confusion or Disorientation No (0 pts) Intoxicated or Sedated No (0 pts) Impaired Gait No (0 pts) Mobility Assist Device Used No (0 pt) Altered Elimination No (0 pt) Score/Fall Risk Level 0 - 2 = Low Risk Oriented to surroundings, Maintained a safe environment, Educated pt \T\ family on fall prevention, incl call for assistance when getting out of bed, Hourly rounding (assess needs \T\ fall precautionary measures) done. Abuse screen: Denies threats or abuse. Denies injuries from another. Nutritional screening: No deficits noted. Tuberculosis screening: No symptoms or risk factors identified. Assessment: 23:40 Reassessment: PT STATES THROAT FEELS TINGLING. HAD ITCHING EARLIER IN HER HEAD BUT IT'S jj7 RESOLVED. General: Appears in no apparent distress. comfortable, Behavior is calm, cooperative, appropriate for age. Pain: Denies pain. Respiratory: Airway is patent Respiratory effort is even, unlabored, Respiratory pattern is regular, symmetrical, Breath sounds are clear bilaterally. EENT: Throat is clear. Vital Signs: 23:26 BP 162 / 97; Pulse 94; Resp 17 S; Temp 97.9(T); Pulse Ox 98% on R/A; Weight 56.7 kg; ha1 Height 4 ft. 11 in. ; 23:41 BP 146 / 97; Pulse 88; Resp 12; Temp 98.6; Pulse Ox 100% on R/A; Weight 58.06 kg; ty Height 4 ft. 11 in. ; Pain 5/10; 08/06 01:00 BP 175 / 91; Pulse 84; Resp 17; Pulse Ox 98% ; jj7 02:00 BP 169 / 93; Pulse 86; Resp 16; Pulse Ox 99% ; jj7 03:00 BP 170 / 89; Pulse 81; Resp 17; Pulse Ox 98% ; jj7 04:23 BP 165 / 86; Pulse 79; Resp 17; Temp 97.8; Pulse Ox 98% ; jj7 08/05 23:41 Body Mass Index 25.85 (58.06 kg, 149.86 cm) ty 23:41 Pain Scale: Adult ty ED Course: 08/05 23:23 Patient arrived in ED. im 23:29 Triage completed. ha1 23:37 Willy Edmond MD is Attending Physician. sp4 23:51 Claude De Paz RN is Primary Nurse. jj7 08/06 00:03 Missed attempt(s): 22 gauge Bleeding controlled, band aid applied, catheter tip intact. ty 00:05 BMP Sent. jj7 00:05 Initial lab(s) drawn, by nh, sent to lab. Inserted saline lock: 22 gauge in right ty antecubital area, using aseptic technique. Blood collected. Flushed with 10 mL NS. 00:08 Patient has correct armband on for positive identification. Bed in low position. Call jj7 light in reach. Side rails up X 1. Adult w/ patient. Provided Education on: USE OF CALL [place]. Warm blanket given. 04:08 Esdras Cage DO is Referral Physician. sp4 04:23 No provider procedures requiring assistance completed. IV discontinued, intact, jj7 bleeding controlled, No redness/swelling at site. Pressure dressing applied. Administered Medications: 00:04 Drug: NS 0.9% IV 1000 ml IV at 1 bolus Per protocol; to be given as a bolus over 60 jj7 minutes Route: IV; Rate: 1 bolus; Site: right antecubital; 01:04 Follow up: Response: Marked relief of symptoms jj7 01:04 Follow up: IV Status: Completed infusion jj7 00:05 Drug: MethylPrednisoLONE IVP 125 mg IVP once Route: IVP; Site: right antecubital; jj7 01:04 Follow up: Response: Marked relief of symptoms jj7 00:05 Drug: Famotidine IVP 20 mg IVP once; dilute with 10 mL 0.9% NaCl; give over 2 minutes jj7 Route: IVP; Site: right antecubital; 01:04 Follow up: Response: Marked relief of symptoms jj7 00:05 Drug: diphenhydrAMINE IVP 50 mg IVP once Route: IVP; Site: right antecubital; jj7 01:03 Follow up: Response: Marked relief of symptoms jj7 Medication: 04:25 VIS not applicable for this client. jj7 Outcome: 04:09 Discharge ordered by . sp4 04:23 Discharged to home ambulatory, with family, jj7 04:23 Condition: improved 04:23 Discharge instructions given to patient, family, Instructed on discharge instructions, medication usage, Demonstrated understanding of instructions, medications, Prescriptions given X 2, 04:25 Patient left the ED. jj7 Signatures: Joy Pagan RN RN ha1 Claude De Paz RN RN jj7 Willy Edmond MD MD sp4 Dari Zamorano Tylor ty Corrections: (The following items were deleted from the chart) 00:15 00:04 C-REACTIVE PROTEIN+C.LAB.BRZ drawn and sent. jj7 EDMS
[2024-08-06 13:01] VITALS: O2SAT 98
[2024-08-06 13:02] VITALS: BP 165/86; TEMP 97.8
== END 2024-08-06 04:25 | disposition home or self-care (01) ==
LOC: ER 23:20
DX: L29.89 Other pruritus (principal); E11.9 Type 2 diabetes mellitus without complications; I10 Essential (primary) hypertension
CPT/HCPCS: 96361; 85025; 80048; 36415; 86140; 96375; 96374; 99284; J1200; J2919; J7030

== ENCOUNTER 2024-09-01 18:05 | Emergency (ER) | payer OTHER ==
[2024-09-01 19:50] LABS: Absolute Eosinophils 0.1 K/uL (0-0.5); Absolute Lymphocytes (CBC) 1.7 K/uL (0.7-4.9); Absolute Monocytes 0.4 K/uL (0.1-1.3); Absolute Neutrophil 3.2 K/uL (1.8-8.0); Basophils % 0.8 % (0-1.3); Eosinophils % 2.6 % (0-4.4); Hematocrit 36.1 % (36.0-45.0); Hemoglobin 11.8 g/dL (12.0-15.0); Lymphocytes % 30.8 % (15.3-44.8); MCH 26.5 pg (27.0-35.0); MCHC 32.7 g/dL (32.0-36.0); MCV 80.9 fL (80-100); MPV 10.4 fL (7.6-11.3); Monocytes % 6.8 % (3.3-12.3); Nucleated Red Blood Cells % 0.3 % (0-0); Platelets 209 thou/uL (152-406); RBC Red Blood Cell Count 4.46 M/uL (3.86-4.86); Red Cell Distribution Width 15.4 % (12.1-15.2)
[2024-09-01 19:55] LABS: PT Prothrombin Time 10.1 SECONDS (9.4-12.5); PTT, Activated Partial Thromb 33.8 SECONDS (24.3-36.9); Protime INR 0.9
[2024-09-01 19:59] LABS: Specific Gravity 1.029 (1.005-1.030)
[2024-09-01 20:01] LABS: Specific Gravity 1.029 (1.005-1.030); Sqamous Epithelial <5 /HPF (None Seen); Urine Bacteria None Seen /HPF (<20); Urine Bilirubin NEGATIVE (Negative); Urine Blood 1+ (Negative); Urine Clarity Clear (Clear); Urine Color Colorless (Yellow); Urine Culture Reflex Order NOT NEEDED; Urine Glucose 4+ (Over) (Negative); Urine Ketones TRACE (Negative); Urine Microscopic Reflex YN ORDER UMIC; Urine Mucus Slight /HPF (None Seen); Urine Nitrite NEGATIVE (Negative); Urine Protein NEGATIVE (Negative); Urine RBC 21-50 /HPF (None Seen); Urine Urobilinogen Normal (Normal); Urine WBC <5 /HPF (<5); Urine Yeast (Budding) Trace /HPF (None Seen); Urine pH 6.5 (5.0-7.0)
[2024-09-01 20:04] LABS: Albumin 3.4 g/dL (3.4-5.0); Albumin/Globulin Ratio 0.8 (1.1-1.8); Anion Gap 10.4 mEq/L (5.0-15.0); Bilirubin Total 0.3 mg/dL (0.2-1.0); Globulin 4.1 g/dL (2.3-3.5); Potassium 4.4 mEq/L (3.5-5.1); Protein, Total 7.5 g/dL (6.4-8.2)
[2024-09-01] MEDS ORDERED: KETOROLAC 30 MG/ML INJ ONE (20:27)
[2024-09-01] MEDS ORDERED: NA CHLORIDE 0.9% 1,000 ML ONE (20:28)
--- NOTE | 2024-09-01 20:36 | RAD REPORT ---
EXAMINATION: US bilateral LOWER EXTREMITY VENOUS DOPPLER CLINICAL INDICATION: Leg pain TECHNIQUE: Sonographic evaluation of the veins of the lower extremity bilaterally formed.Grayscale, c olor and spectral analysis performed on all vessels COMPARISON: 2022 FINDINGS: The common femoral, superficial femoral, greater saphenous, popliteal and posterior tibial veins bila terally are compressible and demonstrate augmentation. Doppler demonstrates good flow. IMPRESSION: No evidence of deep venous thrombosis involving either lower extremity
--- NOTE | 2024-09-01 21:46 | RAD REPORT ---
EXAMINATION: CT ABDOMEN AND PELVIS WITH CONTRAST CLINICAL INDICATION: Abdominal pain TECHNIQUE: CT abdomen and pelvis was performed, after the administration of 100 cc Isovue-300.. Sagit moe and coronal reconstructions were obtained. One or more of the following dose reduction techniques were used: Automated exposure control, adjustment of the mA and kV according to patient si ze, and iterative reconstruction. Unless otherwise specified, incidental findings do not require dedicated imaging follow-up. [id number]. Oral contrast was not given which limits evaluation of bowel and appendix. COMPARISON: February 2024 FINDINGS: Mild fatty liver. The spleen, pancreas, and adrenals appear unremarkable Bilateral renal cortical thinning perhaps secondary to prior inflammation.. Left kidney diminished in size. No evidence of diverticulitis. Normal appendix. No adnexal mass. : IMPRESSION: Mild fatty liver
[2024-09-01] MEDS ORDERED: ACETAMINOPHEN 500 MG TAB ONE (22:07)
[2024-09-01] MEDS ORDERED: ONDANSETRON 4 MG/2 ML VIAL ONE (22:07)
--- NOTE | 2024-09-01 22:13 | EDPHYS ---
Physician Documentation [facility] Name: Tati Oliveros Age: 43 yrs Sex: Female : 1980 Arrival Date: 09/01/2024 Time: 18:05 Bed 3 Private MD: Arti Lambert ED Physician Stevie Torrez HPI: 09/01 19:00 This 43 yrs old Female presents to ER via Wheelchair with complaints of cp Vaginal Bleeding, Dizziness, Leg Pain. 19:00 The patient presents with vaginal bleeding that is heavy, with clots. Onset: The cp symptoms/episode began/occurred yesterday, became heavier today. Associated signs and symptoms: Pertinent positives: dizziness and bilateral leg pain. 19:00 Patient is a 43-year-old female with past medical history significant for cp [id number] diabetes, hypertension who presents to the emergency department with complaints of heavy vaginal bleeding that started earlier today. Patient reports she started her menstrual cycle yesterday and today the bleeding became heavier with the passage of clots. Patient also complains of pain to her legs, dizziness. Historical: - Allergies: 18:36 No Known Allergies; ko1 - PMHx: 18:36 Diabetes - NIDDM; Hypertension; Kindey problems (kidney stent); ko1 - PSHx: 18:36 ectopic sx; kidney stent; ko1 - Immunization history:: Adult Immunizations up to date. - Infectious Disease History:: Denies. - Social history:: Smoking status: Patient denies any tobacco usage or history of. ROS: 19:05 Constitutional: Negative for body aches, chills, fever, poor PO intake, cp 19:05 Abdomen/GI: Positive for abdominal pain, cp 19:05 : Positive for vaginal bleeding, 19:05 Neuro: Positive for dizziness, 19:05 Eyes: Negative for injury, pain, redness, and discharge, cp 19:05 ENT: Negative for drainage from ear(s), ear pain, sore throat, difficulty swallowing, difficulty handling secretions, 19:05 Cardiovascular: Negative for chest pain, edema, palpitations, 19:05 Respiratory: Negative for cough, shortness of breath, wheezing, 19:05 All other systems are negative, Exam: 19:10 Constitutional: The patient appears in no acute distress, alert, awake, cp non-diaphoretic, non-toxic, well developed, well nourished, uncomfortable, 19:10 Head/Face: Normocephalic, atraumatic. cp 19:10 Eyes: Periorbital structures: appear normal, Conjunctiva: normal, no exudate, no cp injection, Sclera: no appreciated abnormality, Lids and lashes: appear normal, bilaterally, 19:10 ENT: External ear(s): are unremarkable, Nose: is normal, Mouth: Lips: moist, Oral mucosa: moist, Posterior pharynx: Airway: no evidence of obstruction, patent, 19:10 Chest/axilla: Inspection: normal, 19:10 Cardiovascular: Rate: normal, Rhythm: regular, cp 19:10 Respiratory: the patient does not display signs of respiratory distress, Respirations: normal, no use of accessory muscles, no retractions, labored breathing, is not present, Breath sounds: are clear throughout, no decreased breath sounds, no stridor, no wheezing, 19:10 Abdomen/GI: Inspection: abdomen appears normal, Palpation: soft, in all quadrants, moderate abdominal tenderness, in the right lower quadrant and left lower quadrant, rebound tenderness, is not appreciated, involuntary guarding, is not appreciated, 19:10 Back: CVA tenderness, is absent, 19:10 Musculoskeletal/extremity: Extremities: noted in the right foot, left foot, right leg and left leg: pain, tenderness, ROM: intact in all extremities, Pulses: noted to be 2+ in the right dorsalis pedis artery and left dorsalis pedis artery, the right foot, left foot, right leg and left leg Sensation intact. 19:10 Skin: cellulitis, is not appreciated, no rash present. 19:10 Neuro: Orientation: to person, place \T\ time. Mentation: is normal, Vital Signs: 18:32 BP 150 / 80; Pulse 82; Resp 16; Temp 98.1; Pulse Ox 100% ; ko1 21:30 BP 137 / 86; Pulse 71; Resp 16; Pulse Ox 100% on R/A; jb4 MDM: 18:43 Medical Screening Exam initiated cp 20:00 Differential diagnosis: malignancy, menorrhea, urinary tract infection, anemia, cp diabetic neuropathy, cellulitis, dvt. 22:12 Data reviewed: vital signs, nurses notes, lab test result(s), radiologic studies, CT cp scan, ultrasound, and as a result, I will discharge patient. 22:12 I considered the following discharge prescriptions or medication management in the emergency department Medications were administered in the Emergency Department. See MAR. Care significantly affected by the following chronic conditions: Diabetes, Hypertension. Counseling: I had a detailed discussion with the patient and/or guardian regarding the historical points, exam findings, and any diagnostic results supporting the discharge/admit diagnosis, lab results, radiology results, the need for outpatient follow up, a family practitioner, an OB/Gyne specialist, to return to the emergency department if symptoms worsen or persist or if there are any questions or concerns that arise at home. Response to treatment: the patient's symptoms have mildly improved after treatment, and as a result, I will discharge patient. 09/01 18:55 Order name: CBC with Diff; Complete Time: 20:30 09/01 21:55 Interpretation: Normal except: HGB 11.8; MCH 26.5; RDW 15.4. 09/01 18:55 Order name: CMP; Complete Time: 20:30 09/01 21:56 Interpretation: Normal except: GLUC 306; BUN 20; CRE 1.31; GFR 51; GLOB 4.1; A/G 0.8. 09/01 18:55 Order name: Lipase; Complete Time: 20:30 09/01 18:55 Order name: Test, Urine; Complete Time: 20:30 09/01 18:55 Order name: Urinalysis w/ reflexes; Complete Time: 20:30 09/01 21:56 Interpretation: Normal except: UGLUC 4+ (Over); UKET TRACE; UBLD 1+; URBC 21-50; BYST cp Trace. 09/01 18:55 Order name: PT-INR; Complete Time: 20:30 09/01 18:55 Order name: Ptt, Activated; Complete Time: 20:30 09/01 22:26 Order name: Glucose, Ancillary Testing EDMS 09/01 19:53 Order name: US Extremity Venous W Compression Antonio; Complete Time: 21:54 cp 09/01 21:54 Interpretation: Report reviewed. 09/01 20:32 Order name: CT Abd/Pelvis - IV Contrast Only; Complete Time: 21:54 09/01 21:55 Interpretation: Report reviewed. 09/01 18:55 Order name: IV Saline Lock; Complete Time: 19:36 cp 09/01 18:55 Order name: Labs collected and sent; Complete Time: 19:36 cp Administered Medications: 20:34 Drug: Ketorolac IVP 15 mg IVP once Route: IVP; Site: right antecubital; jb4 21:00 Follow up: Response: No adverse reaction; Marked relief of symptoms; Pain is decreased jb4 20:34 Drug: NS 0.9% IV 1000 ml IV at 1000 ml once; to be given as a bolus over 60 minutes jb4 Route: IV; Rate: 1000 ml; Site: right antecubital; 22:15 Follow up: Response: No adverse reaction; IV Status: Completed infusion; IV Intake: jb4 1000ml 22:19 Drug: Acetaminophen PO 1000 mg PO once Route: PO; jb4 22:28 Follow up: Response: No adverse reaction; Marked relief of symptoms jb4 22:20 Drug: Ondansetron IVP 4 mg IVP once; over 2 minutes Route: IVP; Site: left antecubital; jb4 22:28 Follow up: Response: No adverse reaction; Marked relief of symptoms jb4 22:25 Not Given (BGL decreased to 1966): insulin regular human7 units Sub-Q once jb4 Disposition Summary: 09/01/24 22:13 Discharge Ordered Notes: Location: Home cp Problem: new cp Symptoms: have improved cp Condition: Stable cp Diagnosis - Pain in left leg cp - Pain in right leg cp - Diabetes mellitus due to underlying condition with hyperglycemia cp - Excessive and frequent menstruation with regular cycle cp - Anemia, unspecified cp Followup: cp - With: Linda Sheets MD - When: 1 week - Reason: symptoms continue Followup: cp - With: Private Physician - When: 5 - 6 days - Reason: elevated blood glucose and diabetes Discharge Instructions: - Discharge Summary Sheet cp - Anemia cp - Hyperglycemia cp - Menorrhagia cp - Daily Diabetes Mellitus Record cp - Blood Glucose Monitoring, Adult cp - Diabetes Mellitus and Nutrition, Adult cp Forms: - Medication Reconciliation Form cp - Antibiotic Education cp - Prescription Opioid Use cp - Patient Portal Instructions cp - Leadership Thank You Letter cp Prescriptions: - Anaprox DS 550 mg Oral Tablet - take 1 tablet ORAL route every 12 hours As needed; 20 tablet; Refills: 0, cp Product Selection Permitted Addendum: 09/07/2024 17:19 Co-signature as Attending Physician, Stevie Torrez MD I reviewed the patient's care r n provided by the Advanced Practice Provider and agree with the diagnosis and treatment plan. Signatures: Dispatcher [employer] EDCA Stevie Torrez MD MD rn Hugo Monroy PA PA cp Bryson, James, RN RN jb4 Beatris Adan RN RN ko1 Corrections: (The following items were deleted from the chart) 09/01 18:55 18:55 CBC+H.LAB.BRZ ordered. EDMS EDMS 18:55 18:55 COMPREHENSIVE METABOLIC PANEL+C.LAB.BRZ ordered. EDMS EDMS 18:55 18:55 LIPASE+C.LAB.BRZ ordered. EDMS EDMS 18:55 18:55 Test, Urine+UC.LAB.BRZ ordered. EDMS EDMS 18:55 18:55 Urinalysis+U.LAB.BRZ ordered. EDMS EDMS 18:55 18:55 PROTIME (+INR)+COAG.LAB.BRZ ordered. EDMS EDMS 18:55 18:55 PTT, ACTIVATED+COAG.LAB.BRZ ordered. EDCA EDMS 09/02 21:44 09/01 19:00 Associated signs and symptoms: Pertinent positives: dizziness and cp bi;lateral leg pain, cp
--- NOTE | 2024-09-01 22:13 | ER ---
Nurse's Notes [facility] Name: Tati Oliveros Age: 43 yrs Sex: Female : 1980 Arrival Date: 09/01/2024 Time: 18:05 Bed 3 Private MD: Arti Lambert Diagnosis: Pain in left leg;Pain in right leg;Diabetes mellitus due to underlying condition with hyperglycemia;Excessive and frequent menstruation with regular cycle;Anemia, unspecified Presentation: 09/01 18:32 Chief complaint: Patient states: 2nd day of period, about an hour ago, began bleeding a ko1 lot, went through a whole box of pads, now feeling dizzy. Coronavirus screen: At this time, the client does not indicate any symptoms associated with coronavirus-19. Ebola Screen: No symptoms or risks identified at this time. Initial Sepsis Screen: Does the patient meet any 2 criteria? No. Patient's initial sepsis screen is negative. Does the patient have a suspected source of infection? No. Patient's initial sepsis screen is negative. Risk Assessment: Do you want to hurt yourself or someone else? Patient reports no desire to harm self or others. Onset of symptoms was September 01, 2024. 18:32 Method Of Arrival: Wheelchair ko1 18:32 Acuity: NICK 3 ko1 Triage Assessment: 18:36 General: Appears uncomfortable, Behavior is calm, cooperative, appropriate for age. ko1 Pain: Complains of pain in bilateral foot and arm pain. : Reports vaginal bleeding that is bright red, heavy flow. Historical: - Allergies: 18:36 No Known Allergies; ko1 - PMHx: 18:36 Diabetes - NIDDM; Hypertension; Kindey problems (kidney stent); ko1 - PSHx: 18:36 ectopic sx; kidney stent; ko1 - Immunization history:: Adult Immunizations up to date. - Infectious Disease History:: Denies. - Social history:: Smoking status: Patient denies any tobacco usage or history of. Screenin:01 [facility] ED Fall Risk Assessment (Adult) History of falling in the last 3 months, jb4 including since admission No falls in past 3 months (0 pts) Confusion or Disorientation No (0 pts) Intoxicated or Sedated Yes (3 pts) Impaired Gait No (0 pts) Mobility Assist Device Used No (0 pt) Altered Elimination No (0 pt) Score/Fall Risk Level 0 - 2 = Low Risk Oriented to surroundings, Maintained a safe environment. Abuse screen: Denies threats or abuse. Nutritional screening: No deficits noted. Tuberculosis screening: No symptoms or risk factors identified. Assessment: 20:01 General: Appears in no apparent distress. comfortable, Behavior is calm, cooperative, jb4 appropriate for age. Pain: Complains of pain in right foot, left foot, right arm and left arm Pain does not radiate. Pain currently is 5 out of 10 on a pain scale. Neuro: Level of Consciousness is awake, alert, obeys commands, Oriented to person, place, time, situation. Cardiovascular: Patient's skin is warm and dry. Respiratory: Airway is patent Respiratory effort is even, unlabored, Respiratory pattern is regular, symmetrical. GI: No signs and/or symptoms were reported involving the gastrointestinal system. : Reports vaginal bleeding that is heavy flow. Derm: Skin is intact, Skin is pink, warm \T\ dry. Musculoskeletal: Circulation, motion, and sensation intact. Range of motion: intact in all extremities. 21:00 Reassessment: Patient appears in no apparent distress at this time. Patient and/or jb4 family updated on plan of care and expected duration. Pain level reassessed. Patient is alert, oriented x 3, equal unlabored respirations, skin warm/dry/pink. 22:34 Reassessment: Patient appears in no apparent distress at this time. Patient and/or jb4 family updated on plan of care and expected duration. Pain level reassessed. Patient is alert, oriented x 3, equal unlabored respirations, skin warm/dry/pink. Vital Signs: 18:32 BP 150 / 80; Pulse 82; Resp 16; Temp 98.1; Pulse Ox 100% ; ko1 21:30 BP 137 / 86; Pulse 71; Resp 16; Pulse Ox 100% on R/A; jb4 ED Course: 18:07 Patient arrived in ED. am2 18:07 Arti Lambert is Private Physician. am2 18:17 Hugo Monroy PA is PHCP. cp 18:17 Stevie Torrez MD is Attending Physician. cp 18:35 Triage completed. ko1 18:36 Arm band placed on right wrist. Patient placed in waiting room, Patient notified of ko1 wait time. 19:40 CBC with Diff Sent. jb4 19:40 CMP Sent. jb4 19:40 Lipase Sent. jb4 19:40 PT-INR Sent. jb4 19:40 Ptt, Activated Sent. jb4 19:40 Inserted saline lock: 18 gauge in right antecubital area, using aseptic technique. jb4 Blood collected. 20:00 Tommy Goins, RN is Primary Nurse. jb4 20:01 Patient has correct armband on for positive identification. Bed in low position. Call jb4 light in reach. Side rails up X 1. Provided Education on: plan of care. 20:22 US Extremity Venous W Compression Antonio In Process Unspecified. EDMS 21:30 Inserted saline lock: 22 gauge in left antecubital area, using aseptic technique. jb4 21:31 CT Abd/Pelvis - IV Contrast Only In Process Unspecified. EDMS 22:10 Linda Sheets MD is Referral Physician. cp 22:35 No provider procedures requiring assistance completed. IV discontinued, intact, jb4 bleeding controlled, No redness/swelling at site. Pressure dressing applied. Administered Medications: 20:34 Drug: Ketorolac IVP 15 mg IVP once Route: IVP; Site: right antecubital; jb4 21:00 Follow up: Response: No adverse reaction; Marked relief of symptoms; Pain is decreased jb4 20:34 Drug: NS 0.9% IV 1000 ml IV at 1000 ml once; to be given as a bolus over 60 minutes jb4 Route: IV; Rate: 1000 ml; Site: right antecubital; 22:15 Follow up: Response: No adverse reaction; IV Status: Completed infusion; IV Intake: jb4 1000ml 22:19 Drug: Acetaminophen PO 1000 mg PO once Route: PO; jb4 22:28 Follow up: Response: No adverse reaction; Marked relief of symptoms jb4 22:20 Drug: Ondansetron IVP 4 mg IVP once; over 2 minutes Route: IVP; Site: left antecubital; jb4 22:28 Follow up: Response: No adverse reaction; Marked relief of symptoms jb4 22:25 Not Given (BGL decreased to 1966): insulin regular human7 units Sub-Q once jb4 Medication: 21:30 VIS not applicable for this client. jb4 Intake: 22:15 IV: 1000ml; Total: 1000ml. jb4 Outcome: 22:13 Discharge ordered by . cp 22:35 Discharged to home ambulatory, with family, jb4 22:35 Condition: stable 22:35 Discharge instructions given to patient, Instructed on discharge instructions, follow up and referral plans. medication usage, Demonstrated understanding of instructions, follow-up care, medications, Prescriptions given X 1, 22:38 Patient left the ED. jb4 Signatures: Dispatcher [employer] EDMS Hugo Monroy PA PA cp Bryson, James, RN RN jb4 Nancy Toscano am2 Beatris Adan, RN RN ko1
[2024-09-01 23:05] VITALS: TEMP 98.1; O2SAT 100
[2024-09-01 23:06] VITALS: BP 137/86
== END 2024-09-01 22:38 | disposition home or self-care (01) ==
LOC: ER 18:05
DX: N92.0 Excessive and frequent menstruation with regular cycle (principal); M79.605 Pain in left leg; M79.604 Pain in right leg; E08.65 Diabetes mellitus due to underlying condition with hyperglycemia; D64.9 Anemia, unspecified
CPT/HCPCS: 85025; 81001; 36415; 81025; 85610; 82947; 85730; 83690; 80053; 74177; 93970; 99284; Q9967; J2405; J7030

== ENCOUNTER 2024-09-06 21:40 | Emergency (ER) | payer OTHER ==
[2024-09-06] MEDS ORDERED: METHYLPREDNISOLONE 125 MG INJ ONE (21:57)
[2024-09-06] MEDS ORDERED: NA CHLORIDE 0.9% 1,000 ML ONE (21:58)
[2024-09-06] MEDS ORDERED: DIPHENHYDRAMINE 50 MG/ML VIAL ONE (21:58)
[2024-09-06] MEDS ORDERED: FAMOTIDINE 20 MG/2 ML VIAL IV ONE (21:58)
--- NOTE | 2024-09-06 23:15 | EDPHYS ---
Physician Documentation [facility] Name: Tati Oliveros Age: 43 yrs Sex: Female : 1980 Arrival Date: 09/06/2024 Time: 21:40 Bed 26 Private MD: ED Physician Titi Betancourt HPI: 09/06 22:45 This 43 yrs old Female presents to ER via Ambulatory with complaints of sb4 Allergic Reaction. 22:45 The patient presents with itching. Onset: The symptoms/episode began/occurred 3 day(s) sb4 ago. Associated signs and symptoms: The patient has no apparent associated signs or symptoms. Possible causes: The patient has no known obvious cause for the symptoms. At home the patient or guardian has treated the symptoms with Benadryl. The patient has experienced similar episodes in the past, a few times, today's symptoms are similar. Historical: - Allergies: 21:53 No Known Allergies; jb4 - PMHx: 21:53 Diabetes - NIDDM; Hypertension; Kindey problems (kidney stent); jb4 - PSHx: 21:53 ectopic sx; kidney stent; (kidney stent); jb4 - Immunization history:: Adult Immunizations not up to date. - Infectious Disease History:: Denies. - Social history:: Smoking status: Patient denies any tobacco usage or history of. Patient uses alcohol, occasionally. ROS: 22:51 Constitutional: Negative for fever, chills, and weight loss, sb4 22:51 Skin: Positive for itching, rash, 22:51 All other systems are negative, Exam: 22:51 Constitutional: This is a well developed, well nourished patient who is awake, alert, sb4 and in no acute distress. Head/Face: Normocephalic, atraumatic. Eyes: Extra-ocular motions intact. Periorbital areas with no swelling, redness, or edema. ENT: Mucous membranes moist. Respiratory: No increased work of breathing, no retractions or nasal flaring. 22:51 Skin: rash a mild rash is noted, urticaria, and is diffusely located, Vital Signs: 21:51 BP 149 / 105; Pulse 75; Resp 16; Temp 97.9(O); Pulse Ox 100% on R/A; Weight 56.7 kg; jb4 Height 4 ft. 11 in. ; 21:51 Body Mass Index 25.25 (56.70 kg, 149.86 cm) jb4 MDM: 21:43 Medical Screening Exam initiated sb4 22:52 Data reviewed: vital signs, nurses notes, and as a result, I will discharge patient. sb4 Historians other than the Patient: Daughter/Son: son. Counseling: I had a detailed discussion with the patient and/or guardian regarding the historical points, exam findings, and any diagnostic results supporting the discharge/admit diagnosis, the need for outpatient follow up, an allergy/instructional services specialist, to return to the emergency department if symptoms worsen or persist or if there are any questions or concerns that arise at home. 09/06 21:48 Order name: IV Start; Complete Time: 21:55 sb4 Administered Medications: 22:05 Drug: NS 0.9% IV 1000 ml IV at 1000 ml once; to be given as a bolus over 60 minutes jb4 Route: IV; Rate: 1000 ml; Site: right antecubital; 23:28 Follow up: Response: No adverse reaction; IV Status: Pt discharged; IV Intake: 500ml jb4 22:05 Drug: MethylPrednisoLONE IVP 125 mg IVP once Route: IVP; Site: right antecubital; jb4 23:28 Follow up: Response: No adverse reaction; Marked relief of symptoms jb4 22:06 Drug: diphenhydrAMINE IVP 25 mg IVP once Route: IVP; Site: right antecubital; jb4 23:28 Follow up: Response: No adverse reaction; Marked relief of symptoms jb4 22:06 Drug: Famotidine IVP 20 mg IVP once; dilute with 10 mL 0.9% NaCl; give over 2 minutes jb4 Route: IVP; Site: right antecubital; 23:28 Follow up: Response: No adverse reaction; Marked relief of symptoms jb4 Disposition: 09/07 00:26 Co-signature as Attending Physician, Titi Betancourt MD I reviewed the patient's care rt provided by the Advanced Practice Provider and agree with the diagnosis and treatment plan. Disposition Summary: 09/06/24 23:14 Discharge Ordered Notes: Location: Home sb4 Problem: an acute exacerbation sb4 Symptoms: have improved sb4 Condition: Stable sb4 Diagnosis - Hives, pruritis sb4 Followup: sb4 - With: Private Physician - When: As needed - Reason: Recheck today's complaints, Re-evaluation by your physician Discharge Instructions: - Discharge Summary Sheet sb4 - Hives, [id number] sb4 Forms: - Patient Portal Instructions sb4 - Leadership Thank You Letter sb4 Prescriptions: - Loratadine 10 mg Oral Tablet - take 1 tablet ORAL route once daily; 14 tablet; Refills: 0, Product Selection sb4 Permitted Signatures: Tommy Goins RN RN jb4 Neisha Kraus PA-C PA-C sb4 Titi Betancourt MD MD rt
--- NOTE | 2024-09-06 23:15 | ER ---
Nurse's Notes [facility] Name: Tati Oliveros Age: 43 yrs Sex: Female : 1980 Arrival Date: 09/06/2024 Time: 21:40 Bed 26 Private MD: Diagnosis: Hives, pruritis Presentation: 09/06 21:51 Chief complaint: Patient states: I am having an allergic reaction to something but I do jb4 not know what. Coronavirus screen: At this time, the client does not indicate any symptoms associated with coronavirus-19. Ebola Screen: No symptoms or risks identified at this time. Onset: The symptoms/episode began/occurred gradually. Anaphylaxis evaluation, no signs or symptoms of anaphylaxis were noted. Initial Sepsis Screen: Does the patient meet any 2 criteria? No. Patient's initial sepsis screen is negative. Does the patient have a suspected source of infection? No. Patient's initial sepsis screen is negative. Risk Assessment: Do you want to hurt yourself or someone else? Patient reports no desire to harm self or others. Onset of symptoms was September 06, 2024. Transition of care: patient was not received from another setting of care. 21:51 Method Of Arrival: Ambulatory jb4 21:51 Acuity: NICK 4 jb4 Triage Assessment: 21:53 General: Appears in no apparent distress. uncomfortable, Behavior is calm, cooperative, jb4 appropriate for age. Pain: Denies pain. Neuro: Level of Consciousness is awake, alert, obeys commands, Oriented to person, place, time, situation. Cardiovascular: Patient's skin is warm and dry. Respiratory: Airway is patent Respiratory effort is even, unlabored, Respiratory pattern is regular, symmetrical. Derm: Skin is intact, Skin is pink, warm \T\ dry. Rash noted that is urticaria, on chin, right jaw, left jaw, right clavicle, left clavicle, mid-sternal area and neck. Musculoskeletal: Circulation, motion, and sensation intact. Range of motion: intact in all extremities. Historical: - Allergies: 21:53 No Known Allergies; jb4 - PMHx: 21:53 Diabetes - NIDDM; Hypertension; Kindey problems (kidney stent); jb4 - PSHx: 21:53 ectopic sx; kidney stent; (kidney stent); jb4 - Immunization history:: Adult Immunizations not up to date. - Infectious Disease History:: Denies. - Social history:: Smoking status: Patient denies any tobacco usage or history of. Patient uses alcohol, occasionally. Screenin:06 [facility] ED Fall Risk Assessment (Adult) History of falling in the last 3 months, jb4 including since admission No falls in past 3 months (0 pts) Confusion or Disorientation No (0 pts) Intoxicated or Sedated No (0 pts) Impaired Gait No (0 pts) Mobility Assist Device Used No (0 pt) Altered Elimination No (0 pt) Score/Fall Risk Level 0 - 2 = Low Risk Oriented to surroundings, Maintained a safe environment. Abuse screen: Denies threats or abuse. Nutritional screening: No deficits noted. Tuberculosis screening: No symptoms or risk factors identified. Assessment: 22:06 Reassessment: see triage note. jb4 23:28 Reassessment: Patient appears in no apparent distress at this time. Patient and/or jb4 family updated on plan of care and expected duration. Pain level reassessed. Patient is alert, oriented x 3, equal unlabored respirations, skin warm/dry/pink. Patient states feeling better. Patient states symptoms have improved. Vital Signs: 21:51 BP 149 / 105; Pulse 75; Resp 16; Temp 97.9(O); Pulse Ox 100% on R/A; Weight 56.7 kg; jb4 Height 4 ft. 11 in. ; 21:51 Body Mass Index 25.25 (56.70 kg, 149.86 cm) jb4 ED Course: 21:42 Patient arrived in ED. jj6 21:43 Neisha Kraus PA-C is PHCP. sb4 21:43 Titi Betancourt MD is Attending Physician. sb4 21:53 Triage completed. jb4 21:53 Arm band placed on right wrist. jb4 22:06 Patient has correct armband on for positive identification. Bed in low position. Call jb4 light in reach. Side rails up X 1. Provided Education on: plan of care. 23:28 No provider procedures requiring assistance completed. IV discontinued, intact, jb4 bleeding controlled, No redness/swelling at site. Pressure dressing applied. Administered Medications: 22:05 Drug: NS 0.9% IV 1000 ml IV at 1000 ml once; to be given as a bolus over 60 minutes jb4 Route: IV; Rate: 1000 ml; Site: right antecubital; 23:28 Follow up: Response: No adverse reaction; IV Status: Pt discharged; IV Intake: 500ml jb4 22:05 Drug: MethylPrednisoLONE IVP 125 mg IVP once Route: IVP; Site: right antecubital; jb4 23:28 Follow up: Response: No adverse reaction; Marked relief of symptoms jb4 22:06 Drug: diphenhydrAMINE IVP 25 mg IVP once Route: IVP; Site: right antecubital; jb4 23:28 Follow up: Response: No adverse reaction; Marked relief of symptoms jb4 22:06 Drug: Famotidine IVP 20 mg IVP once; dilute with 10 mL 0.9% NaCl; give over 2 minutes jb4 Route: IVP; Site: right antecubital; 23:28 Follow up: Response: No adverse reaction; Marked relief of symptoms jb4 Medication: 22:06 VIS not applicable for this client. jb4 Intake: 23:28 IV: 500ml; Total: 500ml. jb4 Outcome: 23:14 Discharge ordered by . sb4 23:28 Discharged to home ambulatory, with family, jb4 23:28 Condition: stable 23:28 Discharge instructions given to patient, Instructed on discharge instructions, follow up and referral plans. medication usage, Demonstrated understanding of instructions, follow-up care, medications, Prescriptions given X 1, 23:29 Patient left the ED. jb4 Signatures: Tommy Goins RN RN jb4 Pat Mccray jj6 Neisha Kraus PA-C PA-C sb4 Corrections: (The following items were deleted from the chart) 21:54 21:51 BP 149 / 105; Pulse 75bpm; Resp 16bpm; Pulse Ox 100% RA; 56.7 kg; Height 4 ft. 11 jb4 in.; BMI: 25.2; jb4
[2024-09-07 05:41] VITALS: BP 149/105; TEMP 97.9; O2SAT 100
== END 2024-09-06 23:29 | disposition home or self-care (01) ==
LOC: ER 21:40
DX: L29.9 Pruritus, unspecified (principal); L50.9 Urticaria, unspecified; E11.9 Type 2 diabetes mellitus without complications; I10 Essential (primary) hypertension
CPT/HCPCS: 96361; 96375; 96374; 99284; J1200; J2919; J7030

== ENCOUNTER 2024-12-07 18:34 | Emergency (ER) | payer OTHER, SELFPAY ==
[2024-12-07] MEDS ORDERED: IPRATROPIUM BROM 0.5MG/2.5ML ONE (20:34)
[2024-12-07] MEDS ORDERED: ALBUTEROL 2.5 MG/3 ML NEB SOL ONE (20:34)
[2024-12-07] MEDS ORDERED: ASPIRIN 325 MG TAB ONE (20:35)
[2024-12-07] MEDS ORDERED: ACETAMINOPHEN 500 MG TAB ONE (20:35)
[2024-12-07 20:38] LABS: Absolute Basophils 0.1 K/uL (0-0.5); Absolute Eosinophils 0.2 K/uL (0-0.5); Absolute Monocytes 0.6 K/uL (0.1-1.3); Absolute Neutrophil 3.4 K/uL (1.8-8.0); Basophils % 0.8 % (0-1.3); Hematocrit 33.1 % (36.0-45.0); Lymphocytes % 32.1 % (15.3-44.8); MCH 25.5 pg (27.0-35.0); MCHC 33.3 g/dL (32.0-36.0); MCV 76.4 fL (80-100); MPV 11.4 fL (7.6-11.3); Monocytes % 9.8 % (3.3-12.3); Neutrophils % 54.3 % (41.7-73.7); Platelets 187 thou/uL (152-406); RBC Red Blood Cell Count 4.33 M/uL (3.86-4.86)
[2024-12-07 20:57] LABS: Albumin 3.4 g/dL (3.4-5.0); Albumin/Globulin Ratio 0.8 (1.1-1.8); Alkaline Phosphatase 92 U/L (45-117); Anion Gap 9.1 mEq/L (5.0-15.0); BUN Blood Urea Nitrogen 26 mg/dL (7-18); Bicarbonate 25 mEq/L (21-32); Bilirubin Total 0.3 mg/dL (0.2-1.0); Globulin 4.2 g/dL (2.3-3.5); Glomerular Filtration Rate 61 ml/min (=/>90); Glucose Level 341 mg/dL (74-106); NT PRO-BNP 58 pg/mL (<125); Potassium 4.1 mEq/L (3.5-5.1); Protein, Total 7.6 g/dL (6.4-8.2); Sodium Level 133 mEq/L (136-145); Troponin High Sensitivity 3.4 pg/mL (<58.9)
[2024-12-07 21:00] LABS: ALT/SGPT < 14 U/L (13-56); AST/SGOT < 10 U/L (15-37); Bilirubin Direct < 0.2 mg/dL (0-0.2); Bilirubin Indirect, Calculated 0.1 mg/dL (0.2-0.8)
[2024-12-07] MEDS ORDERED: DIPHENHYDRAMINE 50 MG/ML VIAL ONE (21:51)
[2024-12-07] MEDS ORDERED: METOCLOPRAMIDE 10 MG/2mL INJ ONE (21:51)
[2024-12-07] MEDS ORDERED: KETOROLAC 30 MG/ML INJ ONE (21:51)
[2024-12-07] MEDS ORDERED: NA CHLORIDE 0.9% 500 ML ONE (21:52)
--- NOTE | 2024-12-07 21:57 | RAD REPORT ---
EXAMINATION: ONE VIEW CHEST XR CLINICAL INDICATION: Female, 43 years old.,DYSPNEA TECHNIQUE: Frontal chest projection is submitted. Examination is limited by patient positioning and t echnique. COMPARISON: 12/10/2023 FINDINGS: The lungs are well inflated and clear. No pneumothorax or sizable effusion. The heart is normal in s ize. Mediastinal contours are unremarkable. IMPRESSION: No acute intrathoracic abnormalities.
--- NOTE | 2024-12-07 22:25 | RAD REPORT ---
EXAM: CT Head Brain Wo Cont HISTORY: HEADACHE COMPARISON: None TECHNIQUE: Multiple contiguous axial images were obtained for a CT of the brain without contrast. Sag ittal and coronal reformats were performed. One or more of the following dose reduction techniques were used: Automated exposure control, adjus tment of the mA and kV according to patient size, and iterative reconstruction. Unless otherwise specified, incidental findings do not require dedicated imaging follow-up. FINDINGS: No evidence of hydrocephalus, intracranial hemorrhage, or extra-axial fluid collection. The brain is normal in morphology. The calvarium is intact. The visualized paranasal sinuses and mastoid air cells are essentially clear . IMPRESSION: No evidence of acute intracranial abnormality.
--- NOTE | 2024-12-07 22:52 | ER ---
Nurse's Notes [facility] Name: Tati Oliveros Age: 43 yrs Sex: Female : 1980 Arrival Date: 12/07/2024 Time: 18:34 Bed 14 Private MD: Diagnosis: Headache;Chest pain, unspecified;Dyspnea, unspecified Presentation: 12/07 19:21 Chief complaint: Patient states: SOB X 1 hour , feels pressure in chest and Headache iw also. 19:21 Method Of Arrival: Ambulatory iw 19:21 Acuity: NICK 3 iw 20:30 Coronavirus screen: Client denies travel out of the [place] in the last 14 days. Ebola rg5 Screen: Patient negative for fever greater than or equal to 101.5 degrees Fahrenheit, and additional compatible Ebola Virus Disease symptoms. Initial Sepsis Screen: Does the patient meet any 2 criteria?. Initial Sepsis Screen: Does the patient have a suspected source of infection? No. Patient's initial sepsis screen is negative. Risk Assessment: Do you want to hurt yourself or someone else? Patient reports no desire to harm self or others. Triage Assessment: 20:30 General: Appears in no apparent distress. Respiratory: Onset: The symptoms/episode rg5 began/occurred gradually, the patient has mild shortness of breath. Historical: - Allergies: 19:20 No Known Allergies; iw - PMHx: 19:20 Diabetes - NIDDM; Hypertension; Kindey problems (kidney stent); iw - PSHx: 19:20 (s); ectopic sx; kidney stent; iw - Immunization history:: Adult Immunizations unknown. - Infectious Disease History:: Denies. - Family history:: not pertinent. - Social history:: Smoking status: unknown. Screenin:30 [facility] ED Fall Risk Assessment (Adult) History of falling in the last 3 months, rg5 including since admission No falls in past 3 months (0 pts) Confusion or Disorientation No (0 pts) Intoxicated or Sedated No (0 pts) Impaired Gait No (0 pts) Mobility Assist Device Used No (0 pt) Altered Elimination No (0 pt) Score/Fall Risk Level 0 - 2 = Low Risk Oriented to surroundings, Maintained a safe environment, Hourly rounding (assess needs \T\ fall precautionary measures) done. Abuse screen: Denies threats or abuse. Nutritional screening: No deficits noted. Tuberculosis screening: No symptoms or risk factors identified. Assessment: 20:30 General: Appears in no apparent distress. comfortable, Behavior is calm, cooperative, rg5 appropriate for age. 20:30 Pain: Complains of pain in chest. Neuro: Level of Consciousness is awake, alert, obeys rg5 commands, Oriented to person, place, time, Reports headache frontal area. Cardiovascular: Rhythm is sinus rhythm. Respiratory: Reports shortness of breath at rest Airway is patent Trachea midline Respiratory effort is even, unlabored, Breath sounds are clear bilaterally. GI: Abdomen is round non-distended, Abd is soft and non tender. : No signs and/or symptoms were reported regarding the genitourinary system. EENT: No deficits noted. Derm: Skin is intact, Skin is dry, Skin is normal, Skin temperature is warm. Musculoskeletal: Circulation, motion, and sensation intact. Range of motion: intact in all extremities. 21:25 Reassessment: Patient and/or family updated on plan of care and expected duration. Pain rg5 level reassessed. Patient is alert, oriented x 3, equal unlabored respirations, skin warm/dry/pink. 22:00 Reassessment: Patient and/or family updated on plan of care and expected duration. Pain rg5 level reassessed. Patient is alert, oriented x 3, equal unlabored respirations, skin warm/dry/pink. Patient states feeling better. 23:00 Reassessment: Patient and/or family updated on plan of care and expected duration. Pain rg5 level reassessed. Patient is alert, oriented x 3, equal unlabored respirations, skin warm/dry/pink. Patient states feeling better. Patient states symptoms have improved. Vital Signs: 19:21 BP 159 / 94; Pulse 80; Resp 16; Temp 97.5; Pulse Ox 100% on R/A; iw 20:30 BP 139 / 76; Pulse 77; Resp 17; Temp 98(O); Pain 6/10; rg5 21:13 BP 151 / 82; Pulse 83; Resp 17; Pulse Ox 100% on R/A; rg5 22:00 BP 150 / 74; Pulse 88; Resp 18; Pulse Ox 100% on R/A; Pain 5/10; rg5 23:00 BP 144 / 73; Pulse 88; Resp 18; Pulse Ox 99% on R/A; Pain 3/10; rg5 20:30 Pain Scale: Adult rg5 22:00 Pain Scale: Adult rg5 23:00 Pain Scale: Adult rg5 ED Course: 18:38 Patient arrived in ED. al6 19:12 Titi Betancourt MD is Attending Physician. rt 19:22 Triage completed. iw 19:55 XRAY Chest (1 view) In Process Unspecified. EDMS 20:21 Michael James, KADY is Primary Nurse. rg5 20:30 Patient has correct armband on for positive identification. Provided Education on:. rg5 Door closed. Noise minimized. Warm blanket given. 20:30 EKG completed in triage. Results shown to MD. rg5 20:30 No provider procedures requiring assistance completed. rg5 20:30 Inserted saline lock: 20 gauge in left antecubital area, using aseptic technique. Blood rg5 collected. Flushed with 10 mL NS. 20:58 Attending Physician role handed off by Titi Betancourt MD ec2 20:58 Jasson Morris MD is Attending Physician. ec2 21:22 CT Head Brain wo Cont In Process Unspecified. EDMS Administered Medications: 03:00 Drug: Ipratropium Inhalation Aerosol 0.5 mg Inhalation once Route: Inhalation; rg5 20:30 Drug: Albuterol Inhalation 2.5 mg Inhalation once Route: Inhalation; rg5 20:30 Drug: Aspirin PO 325 mg PO once Route: PO; rg5 21:12 Follow up: Response: No adverse reaction rg5 20:30 Drug: Acetaminophen PO 1000 mg PO once Route: PO; rg5 21:12 Follow up: Response: No adverse reaction; Pain is decreased rg5 22:01 Drug: diphenhydrAMINE IVP 25 mg IVP once Route: IVP; Site: left antecubital; rg5 23:00 Follow up: Response: No adverse reaction rg5 22:01 Drug: NS 0.9% IV 500 ml 500 ml IV at 1 bolus once; to be given as a bolus over 30 rg5 minutes Volume: 500 ml; Route: IV; Rate: 1 bolus; Site: left antecubital; 22:30 Follow up: IV Status: Completed infusion; IV Intake: 500ml rg5 22:01 Drug: Ketorolac IVP 15 mg IVP once Route: IVP; Site: left antecubital; rg5 23:00 Follow up: Response: No adverse reaction; Pain is decreased rg5 22:02 Drug: metoCLOPramide IVP 10 mg IVP once; over 1 to 2 minutes Route: IVP; Site: left rg5 antecubital; 23:00 Follow up: Response: No adverse reaction; Pain is decreased rg5 Medication: 20:30 VIS not applicable for this client. rg5 Intake: 22:30 IV: 500ml; Total: 500ml. rg5 Outcome: 22:51 Discharge ordered by . ec2 23:39 Discharged to home ambulatory, rg5 23:39 Condition: stable 23:39 Discharge instructions given to patient, Instructed on discharge instructions, follow up and referral plans. Demonstrated understanding of instructions, follow-up care, medications, Prescriptions given X 1, 23:39 Patient left the ED. rg5 Signatures: Dispatcher [employer] Sally Smith, KADY HILLMAN iw Titi Betancourt MD MD Jasson Morris MD MD 2 Michael James RN RN rg5 Coreen Herrera6
--- NOTE | 2024-12-07 22:52 | EDPHYS ---
Physician Documentation [facility] Name: Tati Oliveros Age: 43 yrs Sex: Female : 1980 Arrival Date: 12/07/2024 Time: 18:34 Bed 14 Private MD: ED Physician Jasson Morris HPI: 12/07 20:20 This 43 yrs old Female presents to ER via Ambulatory with complaints of rt Breathing Difficulty, Chest Pain. 20:20 Patient presents to the ED with acute onset of chest pain, difficulty breathing as well rt as a headache starting about 1 hour prior to arrival when she was cooking at work. The patient denies having similar symptoms previously. Denies any acute complaints at this time, symptoms are moderate severity, no other aggravating or elevating factors.. Historical: - Allergies: 19:20 No Known Allergies; iw - PMHx: 19:20 Diabetes - NIDDM; Hypertension; Kindey problems (kidney stent); iw - PSHx: 19:20 (s); ectopic sx; kidney stent; iw - Immunization history:: Adult Immunizations unknown. - Infectious Disease History:: Denies. - Family history:: not pertinent. - Social history:: Smoking status: unknown. ROS: 20:20 Constitutional: Negative for fever, chills, and weight loss, Abdomen/GI: Negative for rt abdominal pain, nausea, vomiting, diarrhea, and constipation, MS/Extremity: Negative for injury and deformity, Skin: Negative for injury, rash, and discoloration, 20:20 Cardiovascular: Positive for Negative for edema, 20:20 Respiratory: Positive for shortness of breath, Negative for cough, 20:20 Neuro: Positive for headache, Negative for loss of consciousness, Exam: 20:20 Constitutional: This is a well developed, well nourished patient who is awake, alert, rt and in no acute distress. Head/Face: Normocephalic, atraumatic. Chest/axilla: Normal chest wall appearance and motion. Nontender with no deformity. No lesions are appreciated. Cardiovascular: Regular rate and rhythm with a normal S1 and S2. No gallops, murmurs, or rubs. Normal PMI, no JVD. No pulse deficits. Respiratory: Lungs have equal breath sounds bilaterally, clear to auscultation and percussion. No rales, rhonchi or wheezes noted. No increased work of breathing, no retractions or nasal flaring. Abdomen/GI: Soft, non-tender, with normal bowel sounds. No distension or tympany. No guarding or rebound. No evidence of tenderness throughout. Skin: Warm, dry with normal turgor. Normal color with no rashes, no lesions, and no evidence of cellulitis. MS/ Extremity: Pulses equal, no cyanosis. Neurovascular intact. Full, normal range of motion. Neuro: Awake and alert, GCS 15, oriented to person, place, time, and situation. Cranial nerves II-XII grossly intact. Motor strength 5/5 in all extremities. Sensory grossly intact. Cerebellar exam normal. Normal gait. 20:20 ECG was reviewed by the Attending Physician. Vital Signs: 19:21 BP 159 / 94; Pulse 80; Resp 16; Temp 97.5; Pulse Ox 100% on R/A; iw 20:30 BP 139 / 76; Pulse 77; Resp 17; Temp 98(O); Pain 6/10; rg5 21:13 BP 151 / 82; Pulse 83; Resp 17; Pulse Ox 100% on R/A; rg5 22:00 BP 150 / 74; Pulse 88; Resp 18; Pulse Ox 100% on R/A; Pain 5/10; rg5 23:00 BP 144 / 73; Pulse 88; Resp 18; Pulse Ox 99% on R/A; Pain 3/10; rg5 20:30 Pain Scale: Adult rg5 22:00 Pain Scale: Adult rg5 23:00 Pain Scale: Adult rg5 MDM: 19:25 Medical Screening Exam initiated rt 21:01 Data reviewed: vital signs, nurses notes. Transition of care: Care assumed from Titi Betancourt MD. ED course: Patient signed out to me by. Physician, brief arrives today for headache and chest pain and shortness of breath. Plan is to reassess, likely discharge home pending negative workup. Metabolic profile shows kidney disease. Troponin within normal ranges. CBC is reassuring. Follow-up CT scan of the head as well as chest x-ray.. 21:26 ED course: Chest x-ray independently reviewed and interpreted by me, shows no acute ec2 intrathoracic process.. 21:55 ED course: Repeat EKG independently reviewed and interpreted by me, shows normal sinus ec2 rhythm, rate of 82, no acute ST segment elevations, intervals are nonactionable.. 21:56 ED course: When compared to initial EKG, appears unchanged.. ec2 22:50 ED course: Repeat troponin is static. Will discharge home. Return precautions given.. ec2 12/07 19:26 Order name: Basic Metabolic Panel; Complete Time: 21:00 rt 12/07 19:26 Order name: CBC with Diff; Complete Time: 20:58 rt 12/07 19:26 Order name: LFT's; Complete Time: 21:00 rt 12/07 19:26 Order name: NT PRO-BNP; Complete Time: 21:00 rt 12/07 19:26 Order name: Troponin HS; Complete Time: 21:00 rt 12/07 22:29 Order name: Troponin High Sensitivity; Complete Time: 22:50 ec2 12/07 19:26 Order name: XRAY Chest (1 view); Complete Time: 21:59 rt 12/07 19:26 Order name: CT Head Brain wo Cont; Complete Time: 22:28 rt 12/07 19:26 Order name: Cardiac monitoring; Complete Time: 20:31 rt 12/07 19:26 Order name: EKG - Nurse/Tech; Complete Time: 20:31 rt 12/07 19:26 Order name: IV Saline Lock; Complete Time: 20:31 rt 12/07 19:26 Order name: Labs collected and sent; Complete Time: 20:31 rt 12/07 19:26 Order name: O2 Per Protocol; Complete Time: 20:31 rt 12/07 19:26 Order name: O2 Sat Monitoring; Complete Time: 20:31 rt 12/07 21:04 Order name: Misc. Order: repeat ekg/trop at 2200; Complete Time: 22:02 ec2 EC:20 Rate is 76 beats/min. Rhythm is regular, Normal Sinus Rhythm with No ectopy. QRS [place] rt is Normal. AR interval is normal. QRS interval is normal. QT interval is normal. No Q waves. T waves are Normal. No ST changes noted. Interpreted by me. Administered Medications: 03:00 Drug: Ipratropium Inhalation Aerosol 0.5 mg Inhalation once Route: Inhalation; rg5 20:30 Drug: Albuterol Inhalation 2.5 mg Inhalation once Route: Inhalation; rg5 20:30 Drug: Aspirin PO 325 mg PO once Route: PO; rg5 21:12 Follow up: Response: No adverse reaction rg5 20:30 Drug: Acetaminophen PO 1000 mg PO once Route: PO; rg5 21:12 Follow up: Response: No adverse reaction; Pain is decreased rg5 22:01 Drug: diphenhydrAMINE IVP 25 mg IVP once Route: IVP; Site: left antecubital; rg5 23:00 Follow up: Response: No adverse reaction rg5 22:01 Drug: NS 0.9% IV 500 ml 500 ml IV at 1 bolus once; to be given as a bolus over 30 rg5 minutes Volume: 500 ml; Route: IV; Rate: 1 bolus; Site: left antecubital; 22:30 Follow up: IV Status: Completed infusion; IV Intake: 500ml rg5 22:01 Drug: Ketorolac IVP 15 mg IVP once Route: IVP; Site: left antecubital; rg5 23:00 Follow up: Response: No adverse reaction; Pain is decreased rg5 22:02 Drug: metoCLOPramide IVP 10 mg IVP once; over 1 to 2 minutes Route: IVP; Site: left rg5 antecubital; 23:00 Follow up: Response: No adverse reaction; Pain is decreased rg5 Disposition Summary: 12/07/24 22:51 Discharge Ordered Notes: Location: Home ec2 Condition: Stable ec2 Diagnosis - Headache ec2 - Chest pain, unspecified ec2 - Dyspnea, unspecified ec2 Followup: ec2 - With: Private Physician - When: - Reason: Re-evaluation by your physician Discharge Instructions: - Discharge Summary Sheet ec2 - Nonspecific Chest Pain, Adult, [id number] ec2 Forms: - Medication Reconciliation Form ec2 - Antibiotic Education ec2 - Prescription Opioid Use ec2 - Patient Portal Instructions ec2 - Leadership Thank You Letter ec2 Prescriptions: - Compazine 10 mg Oral Tablet - take 1 tablet ORAL route every 8 hours As needed; 10 tablet; Refills: 0, ec2 Product Selection Permitted Signatures: Dispatcher [employer] Sally Smith RN RN iw Titi Betancourt MD MD rt Jasson Morris MD MD ec2 Michael James RN RN rg5 Corrections: (The following items were deleted from the chart) 19:26 19:26 BASIC METABOLIC PANEL+C.LAB.BRZ ordered. EDMS EDMS 19: CBC+H.LAB.BRZ ordered. EDMS EDMS 19:26 HEPATIC FUNCTION+C.LAB.BRZ ordered. EDMS EDMS 19: PROBNP+C.LAB.BRZ ordered. EDMS EDMS 19:26 Troponin High Sensitivity+C.LAB.BRZ ordered. EDMS EDMS 19: Chest Single View+RAD.RAD.BRZ ordered. EDMS EDMS 19:27 Head Brain Wo Cont+CT.RAD.BRZ ordered. EDMS EDMS
[2024-12-08 00:18] VITALS: TEMP 98
[2024-12-08 00:22] VITALS: BP 144/73; O2SAT 99
== END 2024-12-07 23:39 | disposition home or self-care (01) ==
LOC: ER 18:34
DX: R07.9 Chest pain, unspecified (principal); R51.9 Headache, unspecified; R06.00 Dyspnea, unspecified
CPT/HCPCS: 36415; 70450; 71045; 80048; 80076; 83880; 84484; 85025; J1200; J2765; J7040; J7613; J7644

== ENCOUNTER 2025-02-27 10:47 | Emergency (ER) | payer SELFPAY ==
[2025-02-27] MEDS ORDERED: ACETAMINOPHEN 500 MG TAB ONE (11:09)
[2025-02-27 11:22] LABS: Absolute Basophils 0.1 K/uL (0-0.5); Absolute Eosinophils 0.3 K/uL (0-0.5); Absolute Lymphocytes (CBC) 1.5 K/uL (0.7-4.9); Absolute Monocytes 0.4 K/uL (0.1-1.3); Absolute Neutrophil 3.8 K/uL (1.8-8.0); Basophils % 0.9 % (0-1.3); Eosinophils % 4.4 % (0-4.4); Hematocrit 39.9 % (36.0-45.0); Hemoglobin 13.6 g/dL (12.0-15.0); Lymphocytes % 24.8 % (15.3-44.8); MCH 26.9 pg (27.0-35.0); MCV 78.9 fL (80-100); Monocytes % 7.3 % (3.3-12.3); Neutrophils % 62.6 % (41.7-73.7); Nucleated Red Blood Cells % 0.1 % (0-0); Platelets 195 thou/uL (152-406); RBC Red Blood Cell Count 5.06 M/uL (3.86-4.86); Red Cell Distribution Width 17.4 % (12.1-15.2)
[2025-02-27 11:41] LABS: Specific Gravity > 1.030 (1.005-1.030); Urine Clarity Turbid (Clear); Urine Color Light-Yellow (Yellow); Urine Glucose 4+ (Negative)
[2025-02-27 11:42] LABS: Urine Bilirubin NEGATIVE (Negative); Urine Blood Negative (Negative); Urine Culture Reflex Order REFLEXED; Urine Ketones Trace (Negative); Urine Microscopic Reflex YN ORDER UMIC; Urine Nitrite 2+ (Negative); Urine Protein Negative (Negative); Urine RBC <5 /HPF (None Seen); Urine Urobilinogen Normal mg/dL (0.2-1.0); Urine WBC >50 /HPF (<5)
[2025-02-27 11:43] LABS: Sqamous Epithelial <5 /HPF (None Seen); Urine Bacteria >50 /HPF (<20)
[2025-02-27 11:50] LABS: Albumin/Globulin Ratio 0.9 (1.1-1.8); Alkaline Phosphatase 86 U/L (45-117); Anion Gap 13.9 mEq/L (5.0-15.0); BUN Blood Urea Nitrogen 23 mg/dL (7-18); Bicarbonate 22 mEq/L (21-32); Bilirubin Total 0.5 mg/dL (0.2-1.0); Globulin 4.6 g/dL (2.3-3.5); Glomerular Filtration Rate 63 ml/min (=/>90); Glucose Level 184 mg/dL (74-106); Lipase 38 U/L (13-75); NT PRO-BNP 33 pg/mL (<125); Protein, Total 8.6 g/dL (6.4-8.2); Sodium Level 137 mEq/L (136-145); Troponin High Sensitivity 3.6 pg/mL (<58.9)
[2025-02-27 11:51] LABS: Potassium 4.9 mEq/L (3.5-5.1)
[2025-02-27 11:52] LABS: ALT/SGPT < 14 U/L (13-56); AST/SGOT 25 U/L (15-37); Bilirubin Direct < 0.2 mg/dL (0-0.2); Bilirubin Indirect, Calculated 0.3 mg/dL (0.2-0.8)
[2025-02-27] MEDS ORDERED: FAMOTIDINE 20 MG/2 ML VIAL IV ONE (12:17)
--- NOTE | 2025-02-27 12:18 | RAD REPORT ---
EXAMINATION: Head Brain Wo Cont CLINICAL INDICATION: Female, 44 years old.VISUAL DISTURBANCES TECHNIQUE: Axial CT images from the skull base to the vertex without intravenous contrast. Coronal an d sagittal reformatted images were created from the data set. One or more of the following dose reduction techniques were used: Automated exposure control, adjustment of the mA and/or kV according to patient size, and/or iterative reconstruction. Unless otherwise specified, incidental findings do not require dedicated imaging follow-up. [id number]. COMPARISON: 12/07/2024 FINDINGS: INTRACRANIAL: No acute intracranial hemorrhage. No hydrocephalus. No mass effect or midline shift. No significant white matter disease. VASCULATURE: No visualized abnormalities in the arteries or dural venous sinuses. SCALP/SKULL: No calvarial fracture identified. No acute soft tissue abnormality. SINUSES: The visualized paranasal sinuses are mostly clear. No significant mastoid fluid. IMPRESSION: No acute intracranial abnormality.
[2025-02-27] MEDS ORDERED: CEFTRIAXONE 1000 MG/VIAL ONE (12:29)
--- NOTE | 2025-02-27 12:37 | EDPHYS ---
Physician Documentation [facility] Name: Tati Oliveros Age: 44 yrs Sex: Female : 1980 Arrival Date: 02/27/2025 Time: 10:47 Bed 17 Private MD: ED Physician Robinson Dowell HPI: 02/27 11:00 This 44 yrs old Female presents to ER via Ambulatory with complaints of Pain - [facility] ABD/FLANK/NECK, Numbness Of Hand - FEET NUMBNESS. 11:00 44-year-old female with a past medical history of hypertension and diabetes presents to [facility] the ER for blurred vision x 2 months, dysuria, epigastric pain, and burning pain in bilateral hands and bilateral feet. Reports that she feels like she is walking on rocks. Also reports headache for the past couple days. Denies fever, chest pain, or shortness of breath.. Historical: - Allergies: 11:00 No Known Allergies; cm10 - PMHx: 11:00 Diabetes - NIDDM; Hypertension; Kindey problems (kidney stent); cm10 - PSHx: 11:00 ; ectopic sx; kidney stent; cm10 - Immunization history:: Adult Immunizations up to date. - Infectious Disease History:: Denies. - Social history:: Smoking status: Patient denies any tobacco usage or history of. ROS: 11:00 Constitutional: Per [place] [id number] Exam: 11:00 Constitutional: This is a well developed, well nourished patient who is awake, alert, [facility] and in no acute distress. Head/Face: Normocephalic, atraumatic. Neck: Trachea midline, no thyromegaly or masses palpated, and no cervical lymphadenopathy. Supple, full range of motion without nuchal rigidity, or vertebral point tenderness. No Meningismus. Cardiovascular: Regular rate and rhythm with a normal S1 and S2. No gallops, murmurs, or rubs. Normal PMI, no JVD. No pulse deficits. Respiratory: Lungs have equal breath sounds bilaterally, clear to auscultation and percussion. No rales, rhonchi or wheezes noted. No increased work of breathing, no retractions or nasal flaring. Back: No spinal tenderness. No costovertebral tenderness. Full range of motion. Skin: Warm, dry with normal turgor. Normal color with no rashes, no lesions, and no evidence of cellulitis. MS/ Extremity: Pulses equal, no cyanosis. Neurovascular intact. Full, normal range of motion. Neuro: Awake and alert, GCS 15, oriented to person, place, time, and situation. Motor strength 5/5 in all extremities. Sensory grossly intact. Cerebellar exam normal. Normal gait. 11:00 Abdomen/GI: Inspection: abdomen appears normal, Bowel sounds: normal, Palpation: soft, mild abdominal tenderness, in the epigastric area, Vital Signs: 11:02 BP 162 / 103; Pulse 87; Resp 16; Temp 97.6; Pulse Ox 100% ; Weight 56.7 kg; Height 4 ll1 ft. 11 in. ; Pain 8/10; 12:25 BP 122 / 79; Pulse 74; Resp 16; Pulse Ox 100% on R/A; mb9 11:02 Body Mass Index 25.25 (56.70 kg, 149.86 cm) ll1 11:02 Pain Scale: Adult ll1 MDM: 10:54 Medical Screening Exam initiated [facility] 12:45 Differential diagnosis: UTI, Diabetic neuropathy, CVA, TIA, acute migraine, GERD, [facility] cholecystitis, pyelonephritis. Data reviewed: vital signs, nurses notes, lab test result(s), radiologic studies, CT scan. I considered the following discharge prescriptions or medication management in the emergency department Medications were administered in the Emergency Department. See MAR. Independent interpretation of the following test(s) in the Emergency Department CT Scan: My interpretation is No acute intracranial findings. Historians other than the Patient: Daughter/Son: Son. Care significantly affected by the following chronic conditions: Diabetes, Hypertension. Counseling: I had a detailed discussion with the patient and/or guardian regarding the historical points, exam findings, and any diagnostic results supporting the discharge/admit diagnosis, the need for outpatient follow up, With PCP for diabetic neuropathy, to return to the emergency department if symptoms worsen or persist or if there are any questions or concerns that arise at home. Response to treatment: the patient's symptoms have mildly improved after treatment. 02/27 11:05 Order name: Basic Metabolic Panel; Complete Time: 11:54 [facility] 02/27 11:05 Order name: CBC with Diff; Complete Time: :54 [facility] 02/27 11:05 Order name: LFT's; Complete Time: 11:54 [facility] 02/27 11:05 Order name: NT PRO-BNP; Complete Time: 11:54 [facility] 02/27 11:05 Order name: Troponin HS; Complete Time: 11:54 [facility] 02/27 11:05 Order name: Lipase; Complete Time: 11:54 [facility] 02/27 11:06 Order name: UA Rfx Kurt Cult if indicated; Complete Time: 11:54 [facility] 02/27 11:46 Order name: Urine Culture [facility] 02/27 11:05 Order name: CT Head Brain wo Cont; Complete Time: 12:31 [facility] 02/27 11:05 Order name: Cardiac monitoring; Complete Time: 11:07 [facility] 02/27 11:05 Order name: EKG - Nurse/Tech; Complete Time: 11:16 [facility] 02/27 11:05 Order name: IV Saline Lock; Complete Time: 11:16 [facility] 02/27 11:05 Order name: Labs collected and sent; Complete Time: 11: [facility] 02/27 11:05 Order name: O2 Per Protocol; Complete Time: 11: [facility] 02/27 11:05 Order name: O2 Sat Monitoring; Complete Time: 11: [facility] EC:12 Rate is 79 beats/min. Rhythm is regular. QRS [place] is Normal. [place] interval is normal. QRS jh7 interval is normal. QT interval is normal. No Q waves. T waves are Normal. No ST changes noted. Clinical impression: Normal ECG. Administered Medications: 11:19 Drug: Acetaminophen PO 1000 mg PO once Route: PO; mb9 12:19 Follow up: Response: No adverse reaction 9 12:19 Drug: Famotidine IVP 20 mg IVP once; dilute with 10 mL 0.9% NaCl; give over 2 minutes mb9 Route: IVP; Site: right antecubital; 12:36 Follow up: Response: No adverse reaction mb9 12:39 Drug: Rocephin IV 1 grams IV at 1 calculated rate once; Given slow IV push per pharmacy mb9 instructions Route: IV; Rate: 1 calculated rate; Site: right antecubital; 12:47 Follow up: Response: No adverse reaction; IV Status: Completed infusion mb9 Disposition Summary: 02/27/25 12:36 Discharge Ordered Notes: Location: Home [facility] Problem: new [facility] Symptoms: are unchanged [facility] Condition: Stable [facility] Diagnosis - UTI/ Urinary tract infection, site not specified [facility] - Type 2 diabetes mellitus with diabetic neuropathy, unspecified [facility] Followup: [facility] - With: Private Physician - When: 2 - 3 days - Reason: Recheck today's complaints Discharge Instructions: - Discharge Summary Sheet [facility] - Urinary Tract Infection, Adult [facility] - Diabetic Neuropathy [facility] Forms: - Medication Reconciliation Form [facility] - Antibiotic Education [facility] - Patient Portal Instructions [facility] - Leadership Thank You Letter [facility] Prescriptions: - cefdinir 300 mg Oral capsule - take 1 capsule ORAL route every 12 hours for 7 days; 14 capsule; Refills: 0, jh7 Product Selection Permitted Signatures: Dispatcher [employer] Aldair Acosta, RN RN ll1 Pat Godinez, MEDICAL EDUCATION MANAGER MEDICAL EDUCATION MANAGER 7 Joi Pompa RN RN mb9 Angeles Willis RN RN cm10 Corrections: (The following items were deleted from the chart) 11:06 11:06 Head Brain Wo Cont+CT.RAD.BRZ ordered. EDMS EDMS 11:06 11:06 BASIC METABOLIC PANEL+C.LAB.BRZ ordered. EDMS EDMS 11:06 11:06 CBC+H.LAB.BRZ ordered. EDMS EDMS 11:06 11:06 HEPATIC FUNCTION+C.LAB.BRZ ordered. EDMS EDMS 11:06 11:06 PROBNP+C.LAB.BRZ ordered. EDMS EDMS 11:06 11:06 Troponin High Sensitivity+C.LAB.BRZ ordered. EDMS EDMS 11: 11:06 LIPASE+C.LAB.BRZ ordered. EDMS EDMS 11:07 11:06 Infectious Disease History: Denies. mb9 ll1
--- NOTE | 2025-02-27 12:37 | ER ---
Nurse's Notes [facility] Name: Tati Oliveros Age: 44 yrs Sex: Female : 1980 Arrival Date: 02/27/2025 Time: 10:47 Bed 17 Private MD: Diagnosis: UTI/ Urinary tract infection, site not specified;Type 2 diabetes mellitus with diabetic neuropathy, unspecified Presentation: 02/27 11:00 Chief complaint: Patient states: Hands and feet burning, tingling, egan for 3 days. ll1 Blurred vision off/on for 2 months. Abdominal pain and kidney pain for 3 days. 11:02 Coronavirus screen: Client denies travel out of the [place] in the last 14 days. Ebola ll1 Screen: Patient denies travel to an Ebola-affected area in the 21 days before illness onset. Initial Sepsis Screen: Does the patient meet any 2 criteria? No. Patient's initial sepsis screen is negative. Does the patient have a suspected source of infection? No. Patient's initial sepsis screen is negative. Risk Assessment: Do you want to hurt yourself or someone else? Patient reports no desire to harm self or others. Onset of symptoms was February 25, 2025. 11:02 Method Of Arrival: Ambulatory ll1 11:02 Acuity: NICK 3 ll1 Triage Assessment: 11:03 General: Appears uncomfortable, Behavior is calm, cooperative, appropriate for age. ll1 Pain: Complains of pain in abdomen Quality of pain is described as aching, crampy. Neuro: Reports headache weakness. GI: Reports upper abdominal pain, constipation, nausea. : Reports burning with urination. Historical: - Allergies: 11:00 No Known Allergies; cm10 - PMHx: 11:00 Diabetes - NIDDM; Hypertension; Kindey problems (kidney stent); cm10 - PSHx: 11:00 ; ectopic sx; kidney stent; cm10 - Immunization history:: Adult Immunizations up to date. - Infectious Disease History:: Denies. - Social history:: Smoking status: Patient denies any tobacco usage or history of. Screenin:06 [facility] ED Fall Risk Assessment (Adult) History of falling in the last 3 months, mb9 including since admission No falls in past 3 months (0 pts) Confusion or Disorientation No (0 pts) Intoxicated or Sedated No (0 pts) Impaired Gait No (0 pts) Mobility Assist Device Used No (0 pt) Altered Elimination No (0 pt) Score/Fall Risk Level 0 - 2 = Low Risk Oriented to surroundings, Maintained a safe environment, Educated pt \T\ family on fall prevention, incl call for assistance when getting out of bed. Abuse screen: Denies threats or abuse. Nutritional screening: No deficits noted. Tuberculosis screening: No symptoms or risk factors identified. Assessment: 11:19 General: Appears in no apparent distress. Behavior is calm, cooperative. Pain: mb9 Complains of pain in back, chest, abdomen, right hand, left hand, right foot, left foot and neck Pain does not radiate. Quality of pain is described as aching, tingling, Pain began gradually, Is intermittent. Neuro: Real Agitation-Sedation Scale (RASS): 0 - Alert and Calm Level of Consciousness is awake, alert, obeys commands, Oriented to person, place, time, situation, Appropriate for age. Cardiovascular: Patient's skin is warm and dry. Respiratory: Airway is patent Respiratory effort is even, unlabored, Respiratory pattern is regular, symmetrical, Breath sounds are clear bilaterally. GI: Abdomen is flat, non-distended, Bowel sounds present X 4 quads. Abd is soft and non tender X 4 quads. : No signs and/or symptoms were reported regarding the genitourinary system. EENT: No signs and/or symptoms were reported regarding the EENT system. Derm: Skin is pink, warm \T\ dry. Musculoskeletal: Range of motion: intact in all extremities. 12:20 Reassessment: No changes from previously documented assessment. Patient and/or family mb9 updated on plan of care and expected duration. Pain level reassessed. Patient is alert, oriented x 3, equal unlabored respirations, skin warm/dry/pink. 12:40 Reassessment: D/C pending IV antibiotic wait time. mb9 Vital Signs: 11:02 BP 162 / 103; Pulse 87; Resp 16; Temp 97.6; Pulse Ox 100% ; Weight 56.7 kg; Height 4 ll1 ft. 11 in. ; Pain 8/10; 12:25 BP 122 / 79; Pulse 74; Resp 16; Pulse Ox 100% on R/A; mb9 11:02 Body Mass Index 25.25 (56.70 kg, 149.86 cm) ll1 11:02 Pain Scale: Adult ll1 ED Course: 10:52 Patient arrived in ED. sj2 10:54 [facility]NP [facility] jh7 10:54 Robinson Dowell MD is Attending Physician. jh7 11:00 Arm band placed on. cm10 11:03 Triage completed. ll1 11:04 Patient placed in an exam room, on a stretcher. 1 11:06 oJi Pompa, KADY is Primary Nurse. mb9 11:07 Bed in low position. Call light in reach. Side rails up X 1. Provided Education on: mb9 press call light if needing anything. Client placed on continuous cardiac and pulse oximetry monitoring. NIBP monitoring applied. 11:16 EKG done, by ED staff, reviewed by Pat HOGUE. nh2 11:17 Initial lab(s) drawn, by ma, sent to lab. Inserted saline lock: 20 gauge in right mb9 antecubital area, using aseptic technique. Blood collected. Flushed with 10 mL NS. 11:20 No provider procedures requiring assistance completed. mb9 12:04 CT Head Brain wo Cont In Process Unspecified. EDMS 12:47 IV discontinued, intact, bleeding controlled, No redness/swelling at site. Pressure mb9 dressing applied. Administered Medications: 11:19 Drug: Acetaminophen PO 1000 mg PO once Route: PO; mb9 12:19 Follow up: Response: No adverse reaction mb9 12:19 Drug: Famotidine IVP 20 mg IVP once; dilute with 10 mL 0.9% NaCl; give over 2 minutes mb9 Route: IVP; Site: right antecubital; 12:36 Follow up: Response: No adverse reaction mb9 12:39 Drug: Rocephin IV 1 grams IV at 1 calculated rate once; Given slow IV push per pharmacy mb9 instructions Route: IV; Rate: 1 calculated rate; Site: right antecubital; 12:47 Follow up: Response: No adverse reaction; IV Status: Completed infusion mb9 Medication: 11:17 VIS not applicable for this client. mb9 Outcome: 12:36 Discharge ordered by . 7 12:47 Discharged to home ambulatory, mb9 12:47 Condition: stable 12:47 Discharge instructions given to patient, family, Instructed on discharge instructions, follow up and referral plans. Demonstrated understanding of instructions, follow-up care, medications, Prescriptions given X 1, 12:48 Patient left the ED. [id number] Signatures: Dispatcher [employer] EDAldair Boyer RN RN ll1 Pat Godinez, FILM DEVELOPING MACHINE OPERATOR FILM DEVELOPING MACHINE OPERATOR jh7 Joi Pompa RN RN mb9 Angeles Willis RN RN cm10 Sterling Bradley, Georgina Mcke[facility] Corrections: (The following items were deleted from the chart) 11:02 11:00 Chief complaint: Patient states: Hands and feet burning, tingling, egan for 3 ll1 days. Blurred vision off/on for 2 months. Abdominal pain and kidney pain for 3 days. cm10 11:07 11:06 Infectious Disease History: Denies. shaina ll1
[2025-02-27 12:57] VITALS: TEMP 97.6; O2SAT 100
[2025-02-27 13:09] VITALS: BP 122/79
== END 2025-02-27 12:48 | disposition home or self-care (01) ==
LOC: ER 10:47
DX: N39.0 Urinary tract infection, site not specified (principal); E11.40 Type 2 diabetes mellitus with diabetic neuropathy, unspecified; I10 Essential (primary) hypertension
CPT/HCPCS: 36415; 70450; 80048; 80076; 81001; 83690; 83880; 84484; 85025; 87086; 87088; 93005; 96374; 96375; 99284; J0696

== ENCOUNTER 2025-05-23 16:07 | Emergency (ER) | payer SELFPAY ==
[2025-05-23 18:04] LABS: Absolute Lymphocytes (CBC) 1.4 K/uL (0.7-4.9); Hematocrit 39.8 % (36.0-45.0); Hemoglobin 13.2 g/dL (12.0-15.0); MCH 26.4 pg (27.0-35.0); MCHC 33.1 g/dL (32.0-36.0); MCV 79.7 fL (80-100); MPV 10.8 fL (7.6-11.3); Nucleated RBC Absolute Count 0.0 (0-0); Nucleated Red Blood Cells % 0.0 % (0-0); RBC Red Blood Cell Count 5.00 M/uL (3.86-4.86); White Blood Count 6.90 thou/uL (4.3-10.9)
[2025-05-23 18:08] LABS: Urine Culture Reflex Order NOT NEEDED; Urine Microscopic Reflex YN ORDER UMIC; Urine WBC Clump Rare /HPF (None Seen); Urine Yeast (Budding) Trace /HPF (None Seen)
[2025-05-23 18:21] LABS: AST/SGOT 15 U/L (15-37); Albumin 3.8 g/dL (3.4-5.0); Albumin/Globulin Ratio 0.8 (1.1-1.8); Alkaline Phosphatase 91 U/L (45-117); Anion Gap 11.2 mEq/L (5.0-15.0); BUN Blood Urea Nitrogen 18 mg/dL (7-18); Globulin 4.5 g/dL (2.3-3.5); Glucose Level 176 mg/dL (74-106); Lipase 25 U/L (13-75); Potassium 4.2 mEq/L (3.5-5.1)
[2025-05-23 18:25] LABS: ALT/SGPT < 14 U/L (13-56)
--- NOTE | 2025-05-23 18:41 | RAD REPORT ---
EXAMINATION: Abdomen Pelvis W Contrast CLINICAL INDICATION: Female, 44 years old.Abd pain;Flank pain TECHNIQUE: CT abdomen and pelvis was performed, after the administration of IV contrast, as per [facility] protocol. Axial, sagittal and coronal reconstructions were obtained. One or more of the following dose reduction techniques were used: Automated exposure control, adjustment of the mA and/o r kV according to patient size, and/or iterative reconstruction. Unless otherwise specified, incidental findings do not require dedicated imaging follow-up. [id number]. COMPARISON: 09/01/2024 FINDINGS: LOWER CHEST: No acute process identified.No significant pericardial effusion. Mild circumferential th ickening of the distal esophagus which could reflect esophagitis. UPPER GI: No significant abnormality. LIVER: Hepatic steatosis, but otherwise unremarkable. GALLBLADDER/BILE DUCTS: No biliary ductal dilatation.? PANCREAS: No mass, ductal dilation, or octavia-pancreatic fluid. SPLEEN: Unremarkable. ADRENALS: No adrenal masses. KIDNEYS AND URETERS: No hydronephrosis.No suspicious renal mass.No renal calculi.Left renal scarring. ABDOMINAL AORTA AND OTHER VESSELS: Normal caliber aorta and IVC. PERITONEUM: No abnormal free fluid. No free air. LYMPH NODES: No pathologic lymphadenopathy. ABDOMINAL WALL: Small fat containing umbilical hernia. SMALL BOWEL/COLON: Small bowel has normal course and caliber. No colonic wall thickening or pericolon ic inflammatory changes.Normal appendix. URINARY BLADDER: Circumferential bladder wall thickening which could reflect cystitis. Correlate with urinalysis. REPRODUCTIVE ORGANS: No pathologic process. MUSCULOSKELETAL: No acute or suspicious osseous abnormality. ADDITIONAL FINDINGS: None. IMPRESSION: Possible cystitis. No other acute findings identified.
[2025-05-23] MEDS ORDERED: ONDANSETRON 4 MG/2 ML VIAL ONE (18:43)
[2025-05-23] MEDS ORDERED: NA CHLORIDE 0.9% 1,000 ML ONE (18:43)
[2025-05-23] MEDS ORDERED: MORPHINE 4 MG/ML SYR ONE (18:43)
--- NOTE | 2025-05-23 19:36 | ER ---
Nurse's Notes [facility] Name: Tati Oliveros Age: 44 yrs Sex: Female : 1980 Arrival Date: 05/23/2025 Time: 16:07 Bed 5 Private MD: Diagnosis: Lumbago with sciatica, left side Presentation: 05/23 16:56 Chief complaint: Patient states: SHE IS HAVING LOWER BACK PAIN, PAIN IN BOTH SIDES, LT dd2 LEG PAIN AND TROUBLE PEEING BEGINNING FRIDAY. Coronavirus screen: At this time, the client does not indicate any symptoms associated with coronavirus-19. Ebola Screen: No symptoms or risks identified at this time. Initial Sepsis Screen: Does the patient meet any 2 criteria? No. Patient's initial sepsis screen is negative. Does the patient have a suspected source of infection? No. Patient's initial sepsis screen is negative. Risk Assessment: Do you want to hurt yourself or someone else? Patient reports no desire to harm self or others. Onset of symptoms was May 21, 2025. 16:56 Method Of Arrival: Ambulatory dd2 16:56 Acuity: NICK 3 dd2 Triage Assessment: 16:58 General: Appears in no apparent distress. uncomfortable, Behavior is calm, cooperative, dd2 appropriate for age. Pain: Complains of pain in low back area, posterior aspect of right lateral abdomen and posterior aspect of left lateral abdomen. GI: Reports nausea. : Reports inability to void, pain in right in left flank(s), lower quadrant(s). Historical: - Allergies: 16:58 No Known Allergies; dd2 - PMHx: 16:58 Diabetes - NIDDM; Hypertension; Kindey problems (kidney stent); dd2 - PSHx: 16:58 ; ectopic sx; kidney stent; dd2 - Immunization history:: Adult Immunizations unknown. - Infectious Disease History:: Denies. - Social history:: Smoking status: Patient denies any tobacco usage or history of. Screenin:45 [facility] ED Fall Risk Assessment (Adult) History of falling in the last 3 months, db including since admission No falls in past 3 months (0 pts) Confusion or Disorientation No (0 pts) Intoxicated or Sedated No (0 pts) Impaired Gait No (0 pts) Mobility Assist Device Used No (0 pt) Altered Elimination No (0 pt) Score/Fall Risk Level 0 - 2 = Low Risk Oriented to surroundings, Maintained a safe environment. Abuse screen: Denies threats or abuse. Denies injuries from another. Nutritional screening: No deficits noted. Tuberculosis screening: No symptoms or risk factors identified. Assessment: 18:45 Reassessment: Patient appears in no apparent distress at this time. Patient and/or db family updated on plan of care and expected duration. Pain level reassessed. Patient is alert, oriented x 3, equal unlabored respirations, skin warm/dry/pink. General: Appears in no apparent distress. comfortable, Behavior is calm, cooperative. Neuro: Level of Consciousness is awake, alert, obeys commands, Oriented to person, place, time, situation. 19:36 Reassessment: Patient states feeling better. Patient states symptoms have improved. kd3 General: Appears in no apparent distress. comfortable, Behavior is calm, cooperative. Neuro: Level of Consciousness is awake, alert, obeys commands, Oriented to person, place, time, situation. Cardiovascular: Patient's skin is warm and dry. Respiratory: Airway is patent Trachea midline Respiratory effort is even, unlabored, Respiratory pattern is regular, symmetrical. 19:37 GI: Abd is soft X 4 quads. kd3 Vital Signs: 16:56 BP 147 / 78; Pulse 77; Resp 16; Temp 97.9; Pulse Ox 100% ; Weight 56.7 kg; Height 4 ft. dd2 11 in. ; Pain 10/10; 18:45 BP 147 / 89; Pulse 82; Resp 16; Pulse Ox 100% ; db 19:32 BP 147 / 82; Pulse 74; Resp 18; Pulse Ox 94% on R/A; kd3 19:36 BP 157 / 85; Pulse 81; Resp 18; Pulse Ox 100% on R/A; kd3 16:56 Body Mass Index 25.25 (56.70 kg, 149.86 cm) dd2 16:56 Pain Scale: Adult dd2 ED Course: 16:12 Patient arrived in ED. im 16:19 Neisha Kraus PA-C is [facility]. sb4 16:19 Hugo Fonseca MD is Attending Physician. sb4 16:58 Triage completed. dd2 16:58 Arm band placed on right wrist. dd2 17:41 Radiology exam delayed due to lab results not completed at this time. (BUN/Creatinine) nj test not completed at this time. IV insertion attempt and/or patient not having appropriate IV at this time. 18:01 UA Rfx Kurt Cult if indicated Sent. bc6 18:01 CBC with Diff Sent. bc6 18:01 CMP Sent. bc6 18: Lipase Sent. bc6 18:01 Test, Urine Sent. bc6 18:01 Initial lab(s) drawn, by me, sent to lab. Urine collected: clean catch specimen, bc6 cloudy. Inserted saline lock: 20 gauge in left antecubital area, using aseptic technique. Blood collected. Flushed with 10 mL NS. 18:11 Patient placed in an exam room, on a stretcher. ll1 18:23 CT Abd/Pelvis - IV Contrast Only In Process Unspecified. EDMS 18:40 Elijah Peralta, RN is Primary Nurse. bp 18:45 Patient has correct armband on for positive identification. Bed in low position. Call db light in reach. Side rails up X 1. Pulse ox on. NIBP on. Warm blanket given. Pillow given. 19:37 No provider procedures requiring assistance completed. kd3 19:41 Primary Nurse role handed off by Elijah Peralta, RN rv1 19:48 Anjelica Bonilla, RN is Primary Nurse. kd3 19:55 IV discontinued, intact, bleeding controlled, No redness/swelling at site. Pressure lg3 dressing applied. Administered Medications: 18:45 Drug: Ondansetron IVP 4 mg IVP once; over 2 minutes Route: IVP; Site: left antecubital; db 19:55 Follow up: Response: No adverse reaction lg3 18:45 Drug: morphine IVP or IV 4 mg IVP once over 4 mins Route: IVP; Infused Over: 4 mins; db Site: left antecubital; 19:55 Follow up: Response: No adverse reaction; Marked relief of symptoms lg3 18:45 Drug: NS 0.9% IV 1000 ml IV at 1 bolus Per protocol; to be given as a bolus over 60 db minutes Route: IV; Rate: 1 bolus; Site: left antecubital; 19:55 Follow up: Response: No adverse reaction; IV Status: Completed infusion; IV Intake: lg3 1000ml Medication: 18:45 VIS not applicable for this client. db Intake: 19:55 IV: 1000ml; Total: 1000ml. lg3 Outcome: 19:35 Discharge ordered by . sb4 19:54 Discharged to home ambulatory, with family, lg3 19:54 Condition: stable 19:54 Discharge instructions given to patient, Instructed on discharge instructions, follow up and referral plans. medication usage, Demonstrated understanding of instructions, follow-up care, medications, Prescriptions given X 2, 19:56 Patient left the ED. lg3 Signatures: Dispatcher [employer] EDMS Javon Jeronimo Brian, RN RN bp Keily Scherer RN RN lg3 Aldair Watkins RN RN ll1 Anjelica Bonilla RN RN kd3 Shahnaz Potts RN RN Neisha Olvera, PA-C PA-C sb4 Renee Up rv1 Rosetta Montes bc6 Dari Zamorano DIANA RN RN dd2
--- NOTE | 2025-05-23 19:36 | EDPHYS ---
Physician Documentation [facility] Name: Tati Oliveros Age: 44 yrs Sex: Female : 1980 Arrival Date: 05/23/2025 Time: 16:07 Bed 5 Private MD: ED Physician Hugo Fonseca HPI: 05/23 16:57 This 44 yrs old Female presents to ER via Unassigned with complaints of Low sb4 Back Pain, Abdominal Pain. 16:58 Patient reports bilateral flank pain since yesterday, worse on the left that radiates sb4 around to her left abdomen and down her left leg. Also reports burning with urination with small amounts. Reports a history of kidney stones and has required ureteral stent in the past. Also endorses nausea vomiting. Denies any fever or chills. Historical: - Allergies: 16:58 No Known Allergies; dd2 - PMHx: 16:58 Diabetes - NIDDM; Hypertension; Kindey problems (kidney stent); dd2 - PSHx: 16:58 ; ectopic sx; kidney stent; dd2 - Immunization history:: Adult Immunizations unknown. - Infectious Disease History:: Denies. - Social history:: Smoking status: Patient denies any tobacco usage or history of. ROS: 16:58 Constitutional: Negative for fever, chills, and weight loss, sb4 16:58 Abdomen/GI: Positive for abdominal pain, nausea and vomiting, 16:58 Back: Positive for flank pain, bilaterally, 16:58 : Positive for urinary symptoms, small amounts, burning with urination, 16:58 All other systems are negative, Exam: 16:58 Head/Face: Normocephalic, atraumatic. Eyes: Extra-ocular motions intact. Periorbital sb4 areas with no swelling, redness, or edema. ENT: Mucous membranes moist. Cardiovascular: Regular rate and rhythm with a normal S1 and S2. Respiratory: No increased work of breathing, no retractions or nasal flaring. Abdomen/GI: Soft, non-tender, no distension. Skin: Warm, dry with normal turgor. Normal color with no rashes, no lesions, and no evidence of cellulitis. 16:58 Constitutional: The patient appears alert, awake, uncomfortable, 16:58 Back: CVA tenderness, is noted bilaterally, Vital Signs: 16:56 BP 147 / 78; Pulse 77; Resp 16; Temp 97.9; Pulse Ox 100% ; Weight 56.7 kg; Height 4 ft. dd2 11 in. ; Pain 10/10; 18:45 BP 147 / 89; Pulse 82; Resp 16; Pulse Ox 100% ; db 19:32 BP 147 / 82; Pulse 74; Resp 18; Pulse Ox 94% on R/A; kd3 19:36 BP 157 / 85; Pulse 81; Resp 18; Pulse Ox 100% on R/A; kd3 16:56 Body Mass Index 25.25 (56.70 kg, 149.86 cm) dd2 16:56 Pain Scale: Adult dd2 MDM: 16:35 Medical Screening Exam initiated sb4 16:59 Differential diagnosis: UTI. sb4 17:00 Differential diagnosis: Pyelonephritis, ureterolithiasis, nephrolithiasis, sb4 hydronephrosis. 19:56 Data reviewed: vital signs, nurses notes, lab test result(s), radiologic studies, and sb4 as a result, I will discharge patient. Consideration of Admission/Observation Escalation of care including admission/observation considered. Historians other than the Patient: Daughter/Son: son. Care significantly affected by the following chronic conditions: Diabetes, Hypertension. Counseling: I had a detailed discussion with the patient and/or guardian regarding the historical points, exam findings, and any diagnostic results supporting the discharge/admit diagnosis, the presence of at least one elevated blood pressure reading (>120/80) during this emergency department visit, lab results, radiology results, the need for outpatient follow up, for definitive care, to return to the emergency department if symptoms worsen or persist or if there are any questions or concerns that arise at home. Special discussion: I discussed with the patient/guardian in detail that at this point there is no indication for admission to the hospital. It is understood, however, that if the symptoms persist or worsen the patient needs to return immediately for re-evaluation. 05/23 16:57 Order name: CBC with Diff; Complete Time: 18:12 sb4 05/23 16:57 Order name: CMP; Complete Time: 18:37 sb4 05/23 16:57 Order name: Lipase; Complete Time: 18:37 sb4 05/23 16:57 Order name: Test, Urine; Complete Time: 18:09 sb4 05/23 16:57 Order name: UA Rfx Kurt Cult if indicated; Complete Time: 18:09 sb4 05/23 16:57 Order name: CT Abd/Pelvis - IV Contrast Only; Complete Time: 18:42 sb4 05/23 16:57 Order name: IV Saline Lock; Complete Time: 18:01 sb4 05/23 16:57 Order name: Labs collected and sent; Complete Time: 18:01 sb4 Administered Medications: 18:45 Drug: Ondansetron IVP 4 mg IVP once; over 2 minutes Route: IVP; Site: left antecubital; db 19:55 Follow up: Response: No adverse reaction lg3 18:45 Drug: morphine IVP or IV 4 mg IVP once over 4 mins Route: IVP; Infused Over: 4 mins; db Site: left antecubital; 19:55 Follow up: Response: No adverse reaction; Marked relief of symptoms lg3 18:45 Drug: NS 0.9% IV 1000 ml IV at 1 bolus Per protocol; to be given as a bolus over 60 db minutes Route: IV; Rate: 1 bolus; Site: left antecubital; 19:55 Follow up: Response: No adverse reaction; IV Status: Completed infusion; IV Intake: lg3 1000ml Disposition Summary: 05/23/25 19:35 Discharge Ordered Notes: Location: Home sb4 Problem: new sb4 Symptoms: have improved sb4 Condition: Stable sb4 Diagnosis - Lumbago with sciatica, left side sb4 Followup: sb4 - With: Emergency Department - When: As needed - Reason: Trouble breathing, Worsening of condition Discharge Instructions: - Discharge Summary Sheet sb4 - Sciatica sb4 Forms: - Patient Portal Instructions sb4 - Leadership Thank You Letter sb4 Prescriptions: - Cyclobenzaprine 10 mg Oral Tablet - take 1 tablet ORAL route every 8 hours As needed; 30 tablet; Refills: 0, sb4 Product Selection Permitted - Diclofenac Sodium 75 mg Oral Tablet Sustained Release - take 1 tablet ORAL route 2 times per day; 30 tablet; Refills: 0, Product sb4 Selection Permitted Addendum: 05/26/2025 14:34 Co-signature as Attending Physician, Hugo Fonseca MD I agree with the assessment and c garcia plan of care. Signatures: Dispatcher [employer] Hugo Young MD MD cha Benton, Danielle RN RN db Efra, CALEB Driver PA-C sb4 OSWALDO OLIVER RN RN dd2 Keily Scherer RN lg3
[2025-05-23 20:26] VITALS: TEMP 97.9
[2025-05-23 20:31] VITALS: BP 157/85; O2SAT 100
== END 2025-05-23 19:56 | disposition home or self-care (01) ==
LOC: ER 16:07
DX: M54.42 Lumbago with sciatica, left side (principal)
CPT/HCPCS: 36415; 74177; 80053; 81001; 81025; 83690; 85025; 96361; 96374; 96375; 99284; J2405; J7030; Q9967